=== PATIENT | male | born 1945 | race Caucasian/White ===

== ENCOUNTER → 2017-12-19 | Outpatient (CLI) | payer BC ==
[~2017-12-19] MED LIST: ASPI-435 PO; CALC500T72 PO; CALCTAB5 PO; CLC100X PO; CRAN1CAP15 PO; MULT-506 PO; OMEG10007 PO; POLY335019 PO; PRLSR20 PO; TEST1INJ6 IM; [UNRECOGNIZED DRUG - CODE] PO; [UNRECOGNIZED DRUG - CODE] PO
[2017-12-19 15:47] LABS: BLOOD UREA NITROGEN 17 mg/dl (7-18); CREATININE 1.25 mg/dl (0.60-1.40)
== END | disposition home or self-care (01) ==
LOC: C.LAB 14:03
PROVIDERS: ATTEND Ophthalmology
DX: H49.21 Sixth [abducent] nerve palsy, right eye (principal)

== ENCOUNTER 2020-07-23 13:41 | Inpatient (IN) ==
--- NOTE | 2020-07-23 14:10 | Emergency Department Note ---
Impression & Plan Pericardial effusion, Chest pain, Breath shortness ED Provider Note NAME: NURYS FRANCO AGE: 74 SEX: M : 1945 ARRIVES VIA: Walk-In INFORMANT: Patient ED PROVIDER(S): Flo Chau DO CHIEF COMPLAINT: Chest pain and shortness of breath HPI: Patient is a 74-year-old male presents to the ER status post aortic valve [place] [facility] [place] He has been having chest pain and shortness of breath since yesterday. Chest pain is present at all times but does improve with sitting up. Also worse with breathing and coughing. He has a runny nose which has been present for the past 2 days. She started warfarin last night. Notes that his previous catheterization was clean. Denies any nausea vomiting or diarrhea. No other exacerbating or remitting factors. No loss of taste or smell. Intermittent cough. ROS: See above HPI for pertinent positives & negatives. A total of 10 systems reviewed and were otherwise negative. PAST MEDICAL HISTORY:See Below PAST SURGICAL HISTORY:See Below FAMILY HISTORY:See Below SOCIAL HISTORY:See Below HOME MEDICATIONS:See Below ALLERGIES:See Below VITALS:See Below PHYSICAL EXAMINATION: GENERAL: Sitting up in bed, alert, well appearing, well nourished, no distress, non-toxic EYE EXAM: normal conjunctiva. OROPHARYNX: no exudate, no erythema, lips, buccal mucosa, and tongue normal and mucous membranes are moist NECK: supple, no nuchal rigidity, no adenopathy, non-tender LUNGS: Clear to auscultation. Normal chest wall mechanics HEART: S1 normal and S2 normal ABDOMEN: abdomen soft, non-tender, normo-active bowel sounds, no masses, no rebound or guarding. UPPER EXTREMITIES: upper extremities are grossly normal. LOWER EXTREMITIES: Calves are equal bilateral with mild pitting edema NEURO EXAM: Normal sensorium, cranial nerves II-XII grossly intact, normal speech, no gross weakness of arms, no gross weakness of legs. MEDICAL DECISION MAKING: Patient is a 74-year-old male who presents the ER status post aortic valve replacement on the . He is anticoagulated as recently found in A. fib by cardiology 2 days ago. IV was established blood work is obtained. Presents for chest pain and shortness of breath. Labs show a leukocytosis of 12,000. Mild anemia at 11. INR was at 1.3. BMP with a creatinine 1.4. Troponin was detectable but not positive. Lipase unremarkable. Chest x-ray with a pleural effusion. Consulted cardiology who evaluated him at bedside. Echo was performed at bedside due to the large pericardial effusion was taken emergently to the [facility] for pericardiocentesis Triage Nursing notes reviewed. Prior medical records reviewed Vital Signs: reviewed and remarkable for no significant abnormalities Differential diagnosis: Differential diagnoses includes but is not limited to acute coronary syndrome, myocardial infarction, pericarditis, pulmonary embolus, aortic dissection, p neumonia, pneumothorax, musculoskeletal, shingles, esophageal. ER treatment provided: See below Diagnostics interpreted by me: ECG: Afib RVR rate of 103 Normal axis No PVCs Normal QTC Cardiac Monitoring: An order was placed for continuous cardiac monitoring. The monitor shows a rate of 101 with sinus rhythm. Laboratory studies: As stated above and show below. Imaging studies: Chest x-ray with pleural effusion Consultation(s): Discussed with Dr. Olvera who evaluated patient at bedside Discussed with nYes Garcia and the hospitalist ED COURSE: Procedures: none Critical Care: None Past Med/Surg History Medical History Benign hypertrophy of prostate CKD (chronic kidney disease), stage III GERD (gastroesophageal reflux disease) Hypertension Hypogonadism in male Pancreatitis history of Valvular heart disease aortic regurgitation. left ventricle thickening Surgical History H/O transurethral resection of prostate "Dr. Colt North 01/27/2015" H/O ventral hernia repair History of appendectomy History of cholecystectomy History of partial colectomy History of tonsillectomy History of tooth extraction all upper teeth removed History of total right hip arthroplasty "Dr. Barbosa 10/2013" Family History Father Diabetes Coronary heart disease COPD (chronic obstructive pulmonary disease) Social History Smoking Status: Former smoker Tobacco Type: Cigarettes Second Hand Exposure: No; Hx Alcohol Use: Yes Alcohol type: wine Hx Substance Use: No Preferred Language: Serbian Communication Ability: Effective Systems Support Officer Required: No Beliefs That Will Affect Care: None Current Living Situation: Alone Feels Safe at Home: No Is there a partner from a previous relationship who is making you feel unsafe now?: No Assistive Devices: None Allergies Allergies Allergy/AdvReac Type Severity Reaction Status Date / Time adhesive Allergy Mild RASH Verified 04/07/20 07:02 meperidine AdvReac Unknown HALLUCINATI Verified 04/07/20 07:02 ONS Home Meds Home Medications Medication Instructions Recorded Confirmed albuterol sulfate 2 puff INHALATION QID PRN 07/23/20 07/23/20 amoxicillin 2,000 mg PO ONCE PRN 07/23/20 07/23/20 ascorbic acid (vitamin C) [Vitamin 500 mg PO DAILY 07/23/20 07/23/20 C] aspirin [Aspir-81] 81 mg PO Q2D 07/23/20 07/23/20 calcium citrate-vitamin D3 1 tab PO DAILY 07/23/20 07/23/20 [Calcium Citrate + D] cholecalciferol (vitamin D3) 25 mcg PO DAILY 07/23/20 07/23/20 docusate sodium [Colace] 100 mg PO DAILY 07/23/20 07/23/20 fluticasone propionate 1 spray INTRANASAL BID 07/23/20 07/23/20 furosemide 40 mg PO DAILY 07/23/20 07/23/20 ginkgo biloba [Ginkoba] 40 mg PO DAILY 07/23/20 07/23/20 glucos sul 2LGt-ikl-wzbcy-C-Mn 1 cap PO TID 07/23/20 07/23/20 [Glucosamine Chondroitin] latanoprost 1 drp OPB DAILY 07/23/20 07/23/20 lisinopril 5 mg PO DAILY 07/23/20 07/23/20 omega-3 fatty acids-fish oil 1 cap PO DAILY 07/23/20 07/23/20 [Thompson 3 Fish Oil] omeprazole 20 mg PO DAILY 07/23/20 07/23/20 oxycodone 5 mg PO Q4H PRN 07/23/20 07/23/20 potassium chloride 10 meq PO DAILY 07/23/20 07/23/20 vit no.[id number] 1 tab PO DAILY 07/23/20 07/23/20 [ Vitamin] warfarin 5 mg PO DAILY 07/23/20 07/23/20 Results & Data (ED) Vital Signs Vital Signs - 24 hr 07/23/20 13:44 07/23/20 13:54 07/23/20 13:57 Temperature 36.8 C Temperature Source Oral Pulse Rate 98 H 90 94 H Pulse Rate from SpO2 Sensor Respiratory Rate 20 20 20 Respiratory Effort / Characteristics Short of Breath Blood Pressure 136/90 114/78 Blood Pressure Mean 105 89 Blood Pressure Position Sitting Pulse Oximetry 97 97 Oxygen Delivery Method Room Air Room Air Sepsis Recent Fever Within 48 Hours No Sepsis New/Unexplained Change in Mental Status N/A Sepsis Action Taken by Nursing No Action Required 07/23/20 13:58 07/23/20 14:00 07/23/20 14:01 Temperature Temperature Source Pulse Rate 88 87 89 Pulse Rate from SpO2 Sensor Respiratory Rate 20 18 20 Respiratory Effort / Characteristics Blood Pressure 140/89 Blood Pressure Mean 111 Blood Pressure Position Pulse Oximetry Oxygen Delivery Method Sepsis Recent Fever Within 48 Hours Sepsis New/Unexplained Change in Mental Status Sepsis Action Taken by Nursing 07/23/20 14:30 07/23/20 15:00 07/23/20 15:01 Temperature Temperature Source Pulse Rate 104 H 100 H 100 H Pulse Rate from SpO2 Sensor 99 H 94 H 97 H Respiratory Rate 22 20 20 Respiratory Effort / Characteristics Blood Pressure 99/68 L Blood Pressure Mean 83 Blood Pressure Position Pulse Oximetry 96 96 95 Oxygen Delivery Method Sepsis Recent Fever Within 48 Hours Sepsis New/Unexplained Change in Mental Status Sepsis Action Taken by Nursing 07/23/20 15:11 07/23/20 15:12 07/23/20 15:53 Temperature Temperature Source Pulse Rate 93 H 101 H 101 H Pulse Rate from SpO2 Sensor 94 H 96 H Respiratory Rate 20 22 22 Respiratory Effort / Characteristics Blood Pressure 96/68 L 110/84 110/84 Blood Pressure Mean 70 93 Blood Pressure Position Pulse Oximetry 95 95 95 Oxygen Delivery Method Room Air Sepsis Recent Fever Within 48 Hours Sepsis New/Unexplained Change in Mental Status Sepsis Action Taken by Nursing Laboratory Data Result diagrams: 07/23/20 19:59 07/23/20 14:09 Lab Results 07/23/20 07/23/20 07/23/20 Range/Units 14:09 14:09 14:09 WBC 12.61 H (4.8-10.8) K/uL RBC 4.15 L (4.7-6.1) M/uL Hgb 12.7 L (14.0-18.0) g/dL Hct 38.0 L (42-52) % MCV 91.6 (80-100) fL MCH 30.6 (25-34) pg MCHC 33.4 (32-36) g/dL RDW Std Deviation 44.8 (36.4-46.3) fL RDW Coeff of Shruti 13.5 (11.5-14.5) % Plt Count 544 H (130-400) K/uL MPV 9.4 (7.4-10.4) fL Immature Gran % (Auto) 0.2 % Neut % (Auto) 83.0 % Lymph % (Auto) 6.9 % Benson % (Auto) 9.8 % Eos % (Auto) 0.0 % Baso % (Auto) 0.1 % Neut # (Auto) 10.46 H (1.4-6.5) K/uL Lymph # (Auto) 0.87 L (1.2-3.4) K/uL Benson # (Auto) 1.24 H (0.11-0.59) K/uL Eos # (Auto) 0.00 (0-0.5) K/uL Baso # (Auto) 0.01 (0-0.2) K/uL Immature Gran # (Auto) 0.03 H (0.00-0.02) K/uL PT 13.3 H (9.0-12.0) Seconds INR 1.3 H (0.9-1.1) APTT 31.2 H (21.0-31.0) Seconds PTT Ratio 1.1 Sodium 136 (136-145) mmol/L Potassium 4.2 (3.5-5.1) mmol/L Chloride 104 (98-107) mmol/L Carbon Dioxide 25 (21-32) mmol/L Anion Gap 7.0 (3-11) BUN 22 H (7-18) mg/dl Creatinine 1.44 H (0.6-1.4) mg/dl Est Cr Clr Drug Dosing 44.2 ml/min Est GFR ( Amer) 55.4 Est GFR (Non-Af Amer) 47.8 BUN/Creatinine Ratio 15.3 (10-20) Glucose 132 H (70-99) mg/dl Calcium 9.5 (8.5-10.1) mg/dl Total Bilirubin 1.1 H (0.2-1) mg/dl AST 21 (15-37) U/L ALT 51 (12-78) U/L Alkaline Phosphatase 81 (45-117) U/L Troponin I 0.016 (0-0.045) ng/ml Total Protein 7.2 (6.4-8.2) gm/dl Albumin 3.0 L (3.4-5.0) gm/dl Globulin 4.2 H (2.5-4.0) gm/dl Albumin/Globulin Ratio 0.7 L (0.9-2) Lipase 179 (73-393) U/L Fluid Neutrophils % % Fluid Lymphocytes % % Fluid Eosinophils % % Fluid Meso/Macro/Benson % % Pericard Color Pericard Appearance Pericard WBC /ul Pericard RBC /uL COVID-19 Eval Order SARS-CoV-2, RNA, NAAT (NEGATIVE) 07/23/20 07/23/20 07/23/20 Range/Units 15:49 15:49 16:45 WBC (4.8-10.8) K/uL RBC (4.7-6.1) M/uL Hgb (14.0-18.0) g/dL Hct (42-52) % MCV (80-100) fL MCH (25-34) pg MCHC (32-36) g/dL RDW Std Deviation (36.4-46.3) fL RDW Coeff of Shruti (11.5-14.5) % Plt Count (130-400) K/uL MPV (7.4-10.4) fL Immature Gran % (Auto) % Neut % (Auto) % Lymph % (Auto) % Benson % (Auto) % Eos % (Auto) % Baso % (Auto) % Neut # (Auto) (1.4-6.5) K/uL Lymph # (Auto) (1.2-3.4) K/uL Benson # (Auto) (0.11-0.59) K/uL Eos # (Auto) (0-0.5) K/uL Baso # (Auto) (0-0.2) K/uL Immature Gran # (Auto) (0.00-0.02) K/uL PT (9.0-12.0) Seconds INR (0.9-1.1) APTT (21.0-31.0) Seconds PTT Ratio Sodium (136-145) mmol/L Potassium (3.5-5.1) mmol/L Chloride (98-107) mmol/L Carbon Dioxide (21-32) mmol/L Anion Gap (3-11) BUN (7-18) mg/dl Creatinine (0.6-1.4) mg/dl Est Cr Clr Drug Dosing ml/min Est GFR ( Amer) Est GFR (Non-Af Amer) BUN/Creatinine Ratio (10-20) Glucose (70-99) mg/dl Calcium (8.5-10.1) mg/dl Total Bilirubin (0.2-1) mg/dl AST (15-37) U/L ALT (12-78) U/L Alkaline Phosphatase (45-117) U/L Troponin I (0-0.045) ng/ml Total Protein (6.4-8.2) gm/dl Albumin (3.4-5.0) gm/dl Globulin (2.5-4.0) gm/dl Albumin/Globulin Ratio (0.9-2) Lipase (73-393) U/L Fluid Neutrophils % 82 % Fluid Lymphocytes % 14 % Fluid Eosinophils % 2 % Fluid Meso/Macro/Benson % 2 % Pericard Color RED Pericard Appearance CLOUDY Pericard WBC 520 /ul Pericard RBC 39244 /uL COVID-19 Eval [facility] SARS-CoV-2, RNA, NAAT NEGATIVE (NEGATIVE) Administered Medications Discontinued Medications Fentanyl Citrate (Fentanyl Citrate 100 Mcg/2 Ml Vial) Confirm Administered Dose 100 mcg .ROUTE .[employer] ONE Stop: 07/23/20 15:59 Last Increment: 07/23/20 17:07 Dose: 50 mcg Documented by: [id number] Ketorolac Tromethamine (Ketorolac Tromethamine 10 Mg Tablet) 10 mg PO NOW STA Stop: 07/23/20 14:31 Last Admin: 07/23/20 14:38 Dose: 10 mg Documented by: [id number] Midazolam HCl (Midazolam Hcl 1 Mg/Ml 2ml Vial) Confirm Administered Dose 2 mg .ROUTE .STK-MED ONE Stop: 07/23/20 15:59 Last Admin: 07/23/20 18:42 Dose: Not Given Documented by: [id number] Midazolam HCl (Midazolam Hcl 1 Mg/Ml 2ml Vial) Confirm Administered Dose 2 mg .ROUTE .STK-MED ONE Stop: 07/23/20 16:39 Last Admin: 07/23/20 17:06 Dose: 2 mg Documented by: [id number] Discharge Plan Visit Data Chief Complaint: Chest Pain Stated Complaint: SOB CHEST PAIN ED Provider: Flo Chau Discharge Problem: Pericardial effusion, Chest pain, Breath shortness Patient Disposition: Still a Patient Discharge Instructions Interventions: ED Discharge Assessment Last Done: 07/23/20 15:53 Discharge Problem: Chest pain Qualifiers: Chest pain type: unspecified Qualified Code(s): R07.9 - Chest pain, unspecified
--- NOTE | 2020-07-23 14:24 | XRay Report ---
SINGLE VIEW CHEST CLINICAL HISTORY: Atypical chest pain. Recent cardiac valve surgery. FINDINGS: 2 AP, portable, upright chest radiographs are compared to study dated 12/11/2015. The examin ation is degraded by portable technique and patient rotation. The patient is status post midline ster notomy. The heart is enlarged. The pulmonary vasculature is noncongested. There is a left pleural eff usion with associated left basilar consolidation. Trace pleural effusion with atelectasis is also see n on the right. No pneumothorax is seen. The skeletal structures are osteopenic. The bony thorax is g rossly intact. IMPRESSION: 1. Cardiomegaly without radiographic evidence of congestive failure. 2. Left pleural effusion with left basilar consolidation. 3. Trace pleural effusion is also seen on the right ACT 112: Negative or not required by law. Electronically signed by: Young Moss M.D. 07/23/2020 2:22 PM
[2020-07-23 14:26] LABS: Basophils # (auto) 0.01 K/uL (0-0.2); Basophils % (auto) 0.1 %; Hemoglobin 12.7 g/dL (14.0-18.0); Immature Granulocytes # (auto) 0.03 K/uL (0.00-0.02); Immature Granulocytes % (auto) 0.2 %; Lymphocytes # (auto) 0.87 K/uL (1.2-3.4); Lymphocytes % (auto) 6.9 %; Mean Corpuscular Hemoglobin 30.6 pg (25-34); Mean Corpuscular Hgb Conc 33.4 g/dL (32-36); Mean Corpuscular Volume 91.6 fL (80-100); Mean Platelet Volume 9.4 fL (7.4-10.4); Monocytes # (auto) 1.24 K/uL (0.11-0.59); Monocytes % (auto) 9.8 %; Neutrophils # (auto) 10.46 K/uL (1.4-6.5); Platelet Count 544 K/uL (130-400); RDW Coefficient of Variation 13.5 % (11.5-14.5); RDW Standard Deviation 44.8 fL (36.4-46.3); Red Blood Count 4.15 M/uL (4.7-6.1); White Blood Count 12.61 K/uL (4.8-10.8)
[2020-07-23] MEDS ORDERED: KETOROLAC TROMETHAMINE 10 MG TABLET PO STA (14:30)
[2020-07-23 14:43] LABS: BUN Creatinine Ratio 15.3 (10-20); Calcium 9.5 mg/dl (8.5-10.1); Creatinine Clr Calc Pharmacy 44.2 ml/min; Est GFR (African American) 55.4; Est GFR (Non-African American) 47.8; Potassium 4.2 mmol/L (3.5-5.1)
[2020-07-23 14:44] LABS: INR 1.3 (0.9-1.1); Partial Thromboplastin Ratio 1.1; Partial Thromboplastin Time 31.2 Seconds (21.0-31.0); Prothrombin Time 13.3 Seconds (9.0-12.0)
[2020-07-23 14:48] LABS: Albumin Globulin Ratio 0.7 (0.9-2); Bilirubin,Total 1.1 mg/dl (0.2-1); Globulin 4.2 gm/dl (2.5-4.0); Total Protein 7.2 gm/dl (6.4-8.2); Troponin I 0.016 ng/ml (0-0.045)
--- NOTE | 2020-07-23 15:23 | Cardiology Consultation ---
Date of Consultation July 23, 2020 Assessment & Plan (1) Pericardial effusion with cardiac tamponade: Patient is 74-year-old male status post aortic valve replacement on 07/10/2020 presents with rapidly progressive symptoms of dyspnea orthopnea and positional chest pain x2 to 3 days. Symptoms were associated with intermittent atrial fibrillation however echocardiogram performed in acute evaluation demonstrates large circumferential pericardial effusion with hemodynamic effect/tamponade. Plan: Patient be referred for urgent pericardiocentesis (2) S/P AVR (aortic valve replacement): Valve structure appears grossly normal in function no valvular insufficiency with limited Doppler performed (3) Paroxysmal atrial fibrillation: Will reassess rhythm post pericardiocentesis patient anticoagulation indications will be dependent on plans. Suspect patient's rhythm may benefit from pericardiocentesis (4) CKD (chronic kidney disease), stage III: (5) Pleural effusion, left: History of Present Illness Reason for Consultation: Worsening dyspnea post aortic valve replacement Requesting Physician: Dr. Chau History of Present Illness Patient is a 74-year-old male well-known to me who was referred and underwent aortic valve replacement for severe aortic insufficiency on 07/10/2020 presents now with recent change in symptoms. Ongoing issues include 1. Aortic valve replacement with 23 mm Epic bioprosthesis 07/10/2020 for severe symptomatic aortic insufficiency 2. Minimal coronary atherosclerosis without obstruction 06/19/2020 3. Mild left internal carotid artery atherosclerosis 4. Postop paroxysmal atrial fibrillation 5. Hypertension 6. CKD stage III Patient presented yesterday to the outpatient clinic setting noting symptoms of newly observed dyspnea was found to be in atrial fibrillation with controlled ventricular response rate. Concerns were raised regarding possible post pericardiotomy syndrome, echo ordered, chest x-ray performed demonstrating cardiomegaly and left pleural effusion. Anticoagulation was initiated with single dose of warfarin. Overnight symptoms worsened with worsening orthopnea dyspnea and positional chest pain. He presented to the emergency room for evaluation by EKG demonst rated ectopic atrial rhythm/atypical atrial flutter and echocardiogram demonstrated large circumferential pericardial effusion, hemodynamically significant with right ventricular effacement. Patient personally examined and findings discussed with patient He denies recent fevers chills or infections. Has been aware of increasing lower extremity edema over the past several days. Up until recent presentation however he was feeling "better every day" ambulatory increasing stamina. Currently with low-grade cough. Incision without focal tenderness or drainage Allergies Allergy/AdvReac Type Severity Reaction Status Date / Time adhesive Allergy Mild RASH Verified 04/07/20 07:02 meperidine AdvReac Unknown HALLUCINATI Verified 04/07/20 07:02 ONS Home Medications Home Medications Medication Instructions Recorded Confirmed Type albuterol sulfate 2 puff INHALATION QID PRN 07/23/20 07/23/20 History ascorbic acid (vitamin C) [Vitamin 500 mg PO DAILY 07/23/20 07/23/20 History C] aspirin [Aspir-81] 81 mg PO DAILY 07/23/20 07/23/20 History cholecalciferol (vitamin D3) 25 mcg PO DAILY 07/23/20 07/23/20 History fluticasone propionate 1 spray INTRANASAL BID 07/23/20 07/23/20 History furosemide 40 mg PO DAILY 07/23/20 07/23/20 History latanoprost 1 drp OPB DAILY 07/23/20 07/23/20 History lisinopril 5 mg PO DAILY 07/23/20 07/23/20 History omega-3 fatty acids-fish oil 1 cap PO DAILY 07/23/20 07/23/20 History [Benoit 3 Fish Oil] omeprazole 20 mg PO DAILY 07/23/20 07/23/20 History oxycodone 5 mg PO Q4H PRN 07/23/20 07/23/20 History potassium chloride 10 meq PO DAILY 07/23/20 07/23/20 History vit no.[id number] 1 tab PO DAILY 07/23/20 07/23/20 History [ Vitamin] warfarin 5 mg PO DAILY 07/23/20 07/23/20 History Patient History Medical History Benign hypertrophy of prostate CKD (chronic kidney disease), stage III GERD (gastroesophageal reflux disease) Hypertension Hypogonadism in male Pancreatitis history of Valvular heart disease aortic regurgitation. left ventricle thickening Surgical History H/O transurethral resection of prostate "Dr. Colt North 01/27/2015" H/O ventral hernia repair History of appendectomy History of cholecystectomy History of partial colectomy History of tonsillectomy History of tooth extraction all upper teeth removed History of total right hip arthroplasty "Dr. Barbosa 10/2013" Family History Father Diabetes Coronary heart disease COPD (chronic obstructive pulmonary disease) Social History Smoking Status: Former smoker Tobacco Type: Cigarettes Second Hand Exposure: No; Hx Alcohol Use: Yes Alcohol type: wine Hx Substance Use: No Preferred Language: Comoran Communication Ability: Effective Criminal Justice Social Worker Required: No Beliefs That Will Affect Care: None Current Living Situation: Alone Feels Safe at Home: No Is there a partner from a previous relationship who is making you feel unsafe now?: No Assistive Devices: None Review of Systems Review of Systems: All systems reviewed & are unremarkable except as noted in HPI & below Physical Exam Constitutional: + ill appearing Eyes: PERRL, conjunctivae normal, anicteric sclerae ENMT: external ear and nose normal, oropharynx normal Neck: trachea midline, no thyromegaly Respiratory: Auscultation: + bronchial breath sounds (Left base) Cardiovascular: Rate/Rhythm: + tachycardic Vessels: + JVD Extremities: + edema (1-2+ bilateral ) Chest (Breasts): Additional Comments: Midline incision without drainage or erythema Gastrointestinal (Abdomen): normal bowel sounds, soft, nontender, no hepatosplenomegaly Musculoskeletal: no cyanosis or clubbing, extremities motor strength 5/5 Neurologic: PERRL, EOMI, accommodation nl, no face palsy, no dysarthria Psychiatric: A+Ox3, euthymic affect Results & Data ([facility]) Vital Signs (Past 12 Hours) Vital Signs Temp Pulse Resp BP Pulse Ox 07/23/20 15:12 101 H 22 110/84 95 07/23/20 15:11 93 H 20 96/68 L 95 07/23/20 15:01 100 H 20 99/68 L 95 07/23/20 15:00 100 H 20 96 07/23/20 14:30 104 H 22 96 07/23/20 14:01 89 20 140/89 07/23/20 14:00 87 18 07/23/20 13:58 88 20 07/23/20 13:57 94 H 20 97 07/23/20 13:54 90 20 114/78 07/23/20 13:44 36.8 C 98 H 20 136/90 97 Laboratory Results Laboratory Results - last 24 hr 07/23/20 07/23/20 07/23/20 14:09 14:09 14:09 WBC 12.61 H RBC 4.15 L Hgb 12.7 L Hct 38.0 L MCV 91.6 MCH 30.6 MCHC 33.4 RDW Std Deviation 44.8 RDW Coeff of Shruti 13.5 Plt Count 544 H MPV 9.4 Immature Gran % (Auto) 0.2 Neut % (Auto) 83.0 Lymph % (Auto) 6.9 Daggett % (Auto) 9.8 Eos % (Auto) 0.0 Baso % (Auto) 0.1 Neut # (Auto) 10.46 H Lymph # (Auto) 0.87 L Daggett # (Auto) 1.24 H Eos # (Auto) 0.00 Baso # (Auto) 0.01 Immature Gran # (Auto) 0.03 H PT 13.3 H INR 1.3 H APTT 31.2 H PTT Ratio 1.1 Sodium 136 Potassium 4.2 Chloride 104 Carbon Dioxide 25 Anion Gap 7.0 BUN 22 H Creatinine 1.44 H Est Cr Clr Drug Dosing 44.2 Est GFR ( Amer) 55.4 Est GFR (Non-Af Amer) 47.8 BUN/Creatinine Ratio 15.3 Glucose 132 H Calcium 9.5 Total Bilirubin 1.1 H AST 21 ALT 51 Alkaline Phosphatase 81 Troponin I 0.016 Total Protein 7.2 Albumin 3.0 L Globulin 4.2 H Albumin/Globulin Ratio 0.7 L Lipase 179
[2020-07-23] MEDS ORDERED: MIDAZOLAM HCL 1 MG/ML 2ML VIAL ONE ×2 (15:58→16:38)
[2020-07-23] MEDS ORDERED: fentaNYL citrate 100 MCG/2 ML VIAL ONE (15:58)
--- NOTE | 2020-07-23 16:18 | History & Physical Report ---
Date of Service July 23, 2020 Assessment & Plan (1) Pericardial effusion with cardiac tamponade: (2) Pleural effusion, left: (3) S/P AVR (aortic valve replacement): This is a 74-year-old male who is significant past medical history of HTN, chronic HFpEF, prediabetes, CKD stage III, left adrenal mass on recent bioprosthetic aortic valve replacement who presents to ED secondary to chest pain shortness of breath x1 day. Patient underwent urgent echocardiogram in ED which revealed large pericardial effusion with hemodynamic compromise and tamponade. He was sent for urgent pericardiocentesis with 875 mL extracted. Discussed with studio control operator Dr. Olvera. Pericardiocentesis performed by Dr. Tejeda. Patient be transferred to ICU for ongoing critical care. Please refer to puttying and calking supervisor consultation for further details regarding assessment and plan. Hold all home meds tonight. Monitor on tele. (4) Paroxysmal atrial fibrillation: Pt developed post op afib, dx on ECG in outpt clinic 07/22 started on warfarin 5mg x 1 dose yesterday metoprolol recently d/c during hospitalization at [facility] will defer anticoagulation to cardiology (5) Hypertension: blood pressure stable, 110/84 on lisinopril, lasix as outpt (6) CKD (chronic kidney disease), stage III: Baseline cr 1.2 bun/cr 22 and 1.44 Fluid management per puttying and calking supervisor monitor bmp (7) Pre-diabetes: A1c 6.0 07/02/2020 Hyperglycemia protocol per ICU (8) Esophageal reflux: PPI as outpt (9) DVT prophylaxis: Per puttying and calking supervisor Disposition: admit to ICU s/p pericardiocentesis Follow-up: PCP Dr. Ewing upon discharge along with appropriate follow-up with valve clinic at [facility] Dr. Ballesteros Full code Patient was seen and examined in collaboration with Dr. Tate, please see addendum History of Present Illness Chief Complaint: Chest pain and SOB x 1 day. Primary Care Provider: Justen Ewing, This is a 74-year-old male who is significant past medical history of HTN, chronic HFpEF, prediabetes, CKD stage III, left adrenal mass on recent bioprosthetic aortic valve replacement who presents to ED secondary to chest pain shortness of breath x1 day. Patient was recently hospitalized at [facility] on 07/10-07/15 for aortic valve replacement secondary to nonrheumatic aortic insufficiency with a 23 mm epic valve by Dr. Ballesteros. His hospital course was complicated by prescribed AV block, postoperative anemia and urethral stricture requiring Mai catheter placement. This has since been removed. His medication changes on discharge included discontinuation of metoprolol succinate 12.5 mg daily, discontinuation of amlodipine, reduction in lisinopril dosing from 40 mg daily to 5 mg and the addition of potassium chloride 10 mEq daily. He was seen in clinic by cardiology yesterday, 07/22. He was seen by Fabian Mejia PA-C who discovered postoperative atrial fibrillation. He was placed on warfarin 5 mg daily and took 1 dose yesterday. Yesterday he developed chest pain and shortness of breath. Chest pain is constant, substernal, worse with lying down and improving with standing up. It is also made worse with coughing and deep breathing. He does complain of dry cough. He currently denies fever, chills, sweats, lightheadedness, dizziness, nausea, vomiting, abdominal pain. He does admit to abdominal pain yesterday but this was improved with a bowel movement. He denies any dysuria, increased urgency or frequency with urination or hematuria. He did have one-time episode of hematuria after catheter was removed but this is since resolved. Of significance prior to aortic valve replacement he did undergo coronary angiography by Dr. Olvera on 06/19/2020 which was unremarkable. In ED patient was seen evaluated by cardiology Dr. Olvera. He did undergo a bedside echo which revealed large pericardial effusion with compromised hemodynamics. Recommendation was patient to proceed to [employer] Supervisor for pericardial window by clinical program consultant Dr. Tejeda. He remained hemodynamically stable in ED. Lab work notable for leukocytosis 12.61k, H&H 12.7 and 30.0, platelet 544, BUN 22, creatinine 1.44, glucose 132. Preop Covid screen was negative. Allergies Allergy/AdvReac Type Severity Reaction Status Date / Time adhesive Allergy Mild RASH Verified 04/07/20 07:02 meperidine AdvReac Unknown HALLUCINATI Verified 04/07/20 07:02 ONS Home Medications Home Medications Medication Instructions Recorded Confirmed Type albuterol sulfate 2 puff INHALATION QID PRN 07/23/20 07/23/20 History amoxicillin 2,000 mg PO ONCE PRN 07/23/20 07/23/20 History ascorbic acid (vitamin C) [Vitamin 500 mg PO DAILY 07/23/20 07/23/20 History C] aspirin [Aspir-81] 81 mg PO Q2D 07/23/20 07/23/20 History calcium citrate-vitamin D3 1 tab PO DAILY 07/23/20 07/23/20 History [Calcium Citrate + D] cholecalciferol (vitamin D3) 25 mcg PO DAILY 07/23/20 07/23/20 History docusate sodium [Colace] 100 mg PO DAILY 07/23/20 07/23/20 History fluticasone propionate 1 spray INTRANASAL BID 07/23/20 07/23/20 History furosemide 40 mg PO DAILY 07/23/20 07/23/20 History ginkgo biloba [Ginkoba] 40 mg PO DAILY 07/23/20 07/23/20 History glucos sul [id number] 1 cap PO TID 07/23/20 07/23/20 History [Glucosamine Chondroitin] latanoprost 1 drp OPB DAILY 07/23/20 07/23/20 History lisinopril 5 mg PO DAILY 07/23/20 07/23/20 History omega-3 fatty acids-fish oil 1 cap PO DAILY 07/23/20 07/23/20 History [Lee 3 Fish Oil] omeprazole 20 mg PO DAILY 07/23/20 07/23/20 History oxycodone 5 mg PO Q4H PRN 07/23/20 07/23/20 History potassium chloride 10 meq PO DAILY 07/23/20 07/23/20 History vit [id number] 1 tab PO DAILY 07/23/20 07/23/20 History [ Vitamin] warfarin 5 mg PO DAILY 07/23/20 07/23/20 History Past Med/Surg History Medical History Benign hypertrophy of prostate CKD (chronic kidney disease), stage III GERD (gastroesophageal reflux disease) Hypertension Hypogonadism in male Pancreatitis history of Valvular heart disease aortic regurgitation. left ventricle thickening Surgical History H/O transurethral resection of prostate "Dr. Colt North 01/27/2015" H/O ventral hernia repair History of appendectomy History of cholecystectomy History of partial colectomy History of tonsillectomy History of tooth extraction all upper teeth removed History of total right hip arthroplasty "Dr. Barbosa 10/2013" Family History Father Diabetes Coronary heart disease COPD (chronic obstructive pulmonary disease) Social History Smoking Status: Former smoker Tobacco Type: Cigarettes Second Hand Exposure: No; Hx Alcohol Use: Yes Alcohol type: wine Hx Substance Use: No Preferred Language: Ukrainian Communication Ability: Effective Atm Servicer Required: No Beliefs That Will Affect Care: None Current Living Situation: Alone Feels Safe at Home: No Is there a partner from a previous relationship who is making you feel unsafe now?: No Assistive Devices: None Review of Systems Review of Systems: All systems reviewed & are unremarkable except as noted in HPI & below Physical Exam Physical Exam: Constitutional: WD/WN, M, vitals as above, NAD, sitting up in bed, pleasant, conversing easily Head: Normocephalic, Atraumatic Eyes: PERRL, conjunctivae normal, anicteric sclerae ENMT: external ear and nose normal, oropharynx normal Neck: trachea midline, no thyromegaly normal visual inspection Respiratory: normal respiratory effort, lungs clear to auscultation, no wheeze, rales, rhonchi. Normal insp/exp effort, no accessory muscle use Cardiovascular: RRR, L anterior chest wall inferior to nipple drain in place, no murmur, +1 pretibial edema Vessels: no JVD or carotid bruit Chest: normal inspection of chest Abdomen: normal bowel sounds, soft, nontender, no hepatosplenomegaly Musculoskeletal: no cyanosis or clubbing, extremities motor strength 5/5 Skin: no rashes, warm and dry normal turgor Neurologic: PERRL, EOMI, accommodation nl, no face palsy, no dysarthria CN's II-XI intact bilaterally and moves all extremities Psychiatric: A+Ox3, euthymic affect Lymphatic: no cervical or axillary lymphadenopathy : deferred Results & Data Results & Data ([facility]) Vital Signs (Past 12 Hours) Vital Signs Temp Pulse Resp BP Pulse Ox 07/23/20 15:53 101 H 22 110/84 95 07/23/20 15:12 101 H 22 110/84 95 07/23/20 15:11 93 H 20 96/68 L 95 07/23/20 15:01 100 H 20 99/68 L 95 07/23/20 15:00 100 H 20 96 07/23/20 14:30 104 H 22 96 07/23/20 14:01 89 20 140/89 07/23/20 14:00 87 18 07/23/20 13:58 88 20 07/23/20 13:57 94 H 20 97 07/23/20 13:54 90 20 114/78 07/23/20 13:44 36.8 C 98 H 20 136/90 97 Laboratory Results Short CBC 07/23/20 07/23/20 Range/Units 14:09 14:09 WBC 12.61 H (4.8-10.8) K/uL Hgb 12.7 L (14.0-18.0) g/dL Hct 38.0 L (42-52) % Plt Count 544 H (130-400) K/uL Creatinine 1.44 H (0.6-1.4) mg/dl BMP 07/23/20 14:09 Sodium 136 Potassium 4.2 Chloride 104 Carbon Dioxide 25 BUN 22 H Creatinine 1.44 H Glucose 132 H Calcium 9.5 Cardiac Enzymes 07/23/20 Range/Units 14:09 Troponin I 0.016 (0-0.045) ng/ml Liver Function 07/23/20 Range/Units 14:09 Total Bilirubin 1.1 H (0.2-1) mg/dl AST 21 (15-37) U/L ALT 51 (12-78) U/L Alkaline Phosphatase 81 (45-117) U/L Albumin 3.0 L (3.4-5.0) gm/dl Diagnostic Findings CXR: IMPRESSION: 1. Cardiomegaly without radiographic evidence of congestive failure. 2. Left pleural effusion with left basilar consolidation. 3. Trace pleural effusion is also seen on the right Echocardiogram: Large pericardial effusion Echocardiogram findings are consistent with hemodynamic compromise, moderate amount of organized clot/fibrosis adjacent to the right ventricle Ventricle small and effaced by pericardial effusion with respiratory variance. Mild LVH, EF 65 to 70%. Bioprosthetic aortic valve. Moderate size left pleural effusion. Medications Administered Discontinued Medications Ketorolac Tromethamine (Ketorolac Tromethamine 10 Mg Tablet) 10 mg PO NOW STA Stop: 07/23/20 14:31 Last Admin: 07/23/20 14:38 Dose: 10 mg Documented by: [id number] ECG Rate (beats per minute): 103 Rhythm: sinus tachycardia Findings: + 1st degree AV block Code Status & VTE Plan Code Status Full Code Supervising Physician Co-Signing Physician Notes Attending addendum The patient was seen and examined in ICU He was presented with worsening dyspnea and noted to have he was pericardial effusion status post bioprosthetic aortic valve placement on of this month He is status post pericardial window removal of 875 cc of fluid Has been feeling a lot better following the procedure On Examination In bed comfortably Hemodynamically stable Chest-clear to auscultate bilaterally Heart-S1-S2, regular Abdomen-benign Extremities-trace to 1+ edema bilaterally NURSE OFFICE-alert, awake and oriented x3 His admission labs, EKG and imaging studies reviewed He was pericardial effusion status post bioprosthetic aortic valve replacement on of this month Status post pericardiotomy with removal of 875 mL of fluid Status post cardiac cath Paroxysmal atrial fibrillation-rate is controlled Agree with assessment and plan as outlined above by WINNIE Landeros DR
--- NOTE | 2020-07-23 17:17 | Pre Anesthesia Assessment ---
Date of Service July 23, 2020 Pre Sedation Assessment Vital Signs Temp Pulse Resp BP Pulse Ox 07/23/20 15:53 101 H 22 110/84 95 07/23/20 15:12 101 H 22 110/84 95 07/23/20 15:11 93 H 20 96/68 L 95 07/23/20 15:01 100 H 20 99/68 L 95 07/23/20 15:00 100 H 20 96 07/23/20 14:30 104 H 22 96 07/23/20 14:01 89 20 140/89 07/23/20 14:00 87 18 07/23/20 13:58 88 20 07/23/20 13:57 94 H 20 97 07/23/20 13:54 90 20 114/78 07/23/20 13:44 98.2 F 98 H 20 136/90 97 Cardiovascular RRR, no murmur, no edema Respiratory normal respiratory effort, lungs clear to auscultation Pre-Sedation Airway Assessment Smoking Status: Former smoker Hx Sleep Apnea: No Hx Difficult Intubation: No Short, Thick Neck: No Thyromental Distance: > or= 3.5 Finger Breadths Oral Cavity: + WNL Mallampati Class: III ASA: ASA3 Procedure Planning Contraindications for Sedation: none Current Medications Reviewed: Yes Notes The planned sedation has been discussed with the patient. Informed Consent was obtained. I have identified the patient, determined the appropriateness of sedation and have assessed the patient immediately prior to the procedure. All medicine(s) and interventions are by my order.
--- NOTE | 2020-07-23 17:20 | Post Anesthesia Assessment ---
Date of Service July 23, 2020 Post Sedation Assessment Vital Signs Temp Pulse Resp BP Pulse Ox 07/23/20 15:53 101 H 22 110/84 95 07/23/20 15:12 101 H 22 110/84 95 07/23/20 15:11 93 H 20 96/68 L 95 07/23/20 15:01 100 H 20 99/68 L 95 07/23/20 15:00 100 H 20 96 07/23/20 14:30 104 H 22 96 07/23/20 14:01 89 20 140/89 07/23/20 14:00 87 18 07/23/20 13:58 88 20 07/23/20 13:57 94 H 20 97 07/23/20 13:54 90 20 114/78 07/23/20 13:44 98.2 F 98 H 20 136/90 97 Recovery Score Activity: Moves 4 extremities Respiration: Deep Breath/Cough Circulation: +/-20% PreAnes Value Consciousness: Fully Awake Oxygen Saturation: O2 needed for >90% Discharge Sedation Level of Care: Fast Track Phase II Post Sedation Plan On clinical assessment, the patient appears to have tolerated the sedation without complications. Patient is recovering as anticipated. Patient will continue to be monitored by nursing and may be discharged when sedation discharge criteria are met per below protocol. Upon Completions of procedure up to 15 minutes continue every 5 minute vital signs and the P.A.R. score; then discharge to a Phase I or Fast Track to Phase II per the following guidelines: * Discharge Patient to appropriate Phase II area if PAR is 8 or greater or return to pre- procedure baseline. The post - procedure orders will be as directed. * If PAR score is less than 8 or not return to pre-procedure baseline then patient will follow Phase I monitoring till PAR is reached for Phase II. The Phase I may be done in procedure room or may call to secure a Phase I area. * If naloxone or flumazenil are used for reversal, hold in Phase I for continued monitoring from when last reversal dose was given for a minimum of 60 minutes or longer pending the nurse and/or physician discretion of patient condition before discharge to Phase II. Please call the Sedation Physician to re-evaluate and complete post-note for discharge to Phase II area. Do NOT discharge from procedure sedation or Phase 1 until post- sedation evaluation note is complete by procedure /sedation MD Sedation Discharge Instructions to be given to the patient at discharge to home.
--- NOTE | 2020-07-23 17:34 | Cardiac Catheterization ---
[facility] Data: Chip Silo Tender Cardiac Status Clinical evaluation leading to the procedure CAD Presenation: Sx unlikely to be ischemic Anginal Classification: CCS III Heart Failure: No Cardiogenic Shock within 24 Hours: No Cardiac Arrest within 24 Hours: No Imaging Studies Past 6 Months: Yes Stress Studies Past 6 Months: No Diagnostic Physicians Name: Joel Tejeda MD Status: Urgent Closure Device Percutaneous Entry Location: Pericardial drain Recommendations: Management Recommendatons (Drain to suction) Intraprocedure Events Significant Disection: No Perforation: No Cardiac Cath Procedure Full Procedure Date July 23, 2020 Pre-Procedure Diagnosis Pre-Procedure Diagnosis: Pericardial Disease and Cardiothoracic Symptom (Dyspnea, fatigue) AUC Score AUC Score: 7 Post-Procedure Diagnosis Post-Procedure Diagnosis: Cardiothoracic Finding (Large pericardial effusion with early tamponade) Procedure(s) Performed Procedure(s) Performed: Left Heart Cath and Pericardiocentesis Drawing Checker Joel Tejeda MD Apprentice Cook(s) Bin Estimated Blood Loss Estimated Blood Loss: None Medication(s) Medication(s): Fentanyl, Lidocaine 1% and Versed Summary of Findings Indication: 2 weeks post bioprosthetic aortic valve replacement with worsening dyspnea, orthopnea in the setting of large pericardial effusion with signs of early tamponade Procedure: Moderate sedation with fentanyl and Versed Large circumferential pericardial effusion visualized from apical position Local anesthesia with lidocaine Using micropuncture needle via transapical approach, under ultrasound guidance pericardial space accessed and micropuncture sheath placed Bubble study/saline contrast used to confirm position in pericardial space 8 Fr drain placed into pericardial space Removed 870 red serosanguineous fluid Repeat echocardiogram confirmed near complete removal of pericardial fluid Drain sutured into place and left to suction Patient tolerated procedure well with no apparent complications Summary: 1. Successful pericardiocentesis with removal of 870 mL of serosanguineous fluid Recommendations: Follow-up on cell count, Gram stain and cultures We will leave drain in place to suction overnight If overnight drainage less than 50 mL plan to pull drain in a.m. Hemodynamics Rest Ao:: -- Final Ao: -- LV: -- Recommendations Recommendations: Management Recommendatons (Drain to suction) Specimens Specimens: None Radiation Exposure (mGy) 36 Contrast (mls) -- Fluids (cc crystalloids) Fluids (cc crystalloids): -- Drains Drains: pericardial drain Anesthesia moderate Procedural Complication(s) None Disposition ICU I attest to the content of the Intraoperative Record and any orders documented therein. Any exceptions are noted below. [facility] Card Cath Procedure Codes Therapeutic Services & Ancillary Proc Procedure 1: Cardiovascular Tx and Anc Procedures: 91226 Ultrasonic Guidance Pericardiocentesis Moderate Sedation Procedure 1: Sedation/Anesthesia: 34874 Mod Sedation by the same physician;Init15 Min Child Age 5 & Up Procedure 2: Sedation/Anesthesia: 04586 Mod Sedation by the same physician; Ea [id number] Minutes PG Care Time/CCT Total # of Minutes Spent Total Time Spent with Patient: Total time spent is greater than 50% in coordination of care (as documented) at patient's floor/unit and/or counseling patient:
[2020-07-23] MEDS ORDERED: ICU PROTOCOL FOR HYPERGLYCEMIA PRN (17:43)
--- NOTE | 2020-07-23 18:02 | Communication Note ---
Date of Service: July 23, 2020 Patient referred and underwent pericardiocentesis with removal of 875 cc of fluid. Patient less dyspneic and more comfortable. Pericardial drain remains in place Patient without discomfort currently.No chest pains Underlying rhythm appears to be accelerated junctional possible atypical flutter. Will follow on telemetry no further antiarrhythmics or beta-blockers for time being Anticoagulation currently contraindicated, warfarin will be held Patient will be followed in the intensive care unit with pericardial drain in place.
[2020-07-23 19:40] LABS: Pericardial Fluid Appearance CLOUDY; Pericardial Fluid Color RED; RBC Pericardial Fluid (A) 37000 /uL; WBC Pericardial Fluid (A) 520 /ul
[2020-07-23 19:42] LABS: Eosinophils, Fluid 2 %; Lymphocytes, Fluid 14 %; Mono,Macrophage,Mesothelial 2 %; Neutrophils, Fluid 82 %
--- NOTE | 2020-07-23 19:45 | Critical Care Consultation ---
Date of Consultation July 23, 2020 Assessment & Plan (1) Admitted to intensive care unit: Reason Critically Ill: 74-year-old male with large pericardial effusion with cardiac tamponade status post pericardiocentesis with evacuation of 870 milliliters of serosanguineous fluid requiring close hemodynamic monitoring status post procedure. NEURO - * CAM ICU: Negative * Pain: Percocet as needed. CARDIAC/VASCULAR - * Pericardial effusion with cardiac tamponade: * Likely secondary to recent aortic valve replacement. * Doing well status post pericardiocentesis. * Only scant drainage at this time. * Appreciate ongoing cardiology recommendations. * Monitor closely for any increasing bleeding. * Monitor on telemetry. RESPIRATORY - * No history of pulmonary disease. * Saturating well on room air. * Pleural effusion likely secondary to recent surgical intervention. GI/NUTRITION - * GERD * Prophylaxis: Continue home medications. RENAL/LYTES - * CKD 3 * Monitor electrolytes. Replace appropriately. - * History of BPH. ENDO - * Prediabetes * BSGs per unit protocol. ISS --> gtt per unit policy. HEME - * Stable H&H. * Monitor for drop in H&H status post pericardiocentesis. ID - * No immediate concern for infectious contribution at this point. LINES/IV ACCESS - * PIVs x2 * Pericardial drain DVT PROPHYLAXIS - * Hold on anticoagulation status post intervention and with recent dosing of Coumadin. * SCDs I have personally spent 35 minutes of critical care time in the direct management of this patient. This is a life/limb threatening event. This includes time spent evaluating patient, direct bedside care, chart review, placing orders, interpretation of diagnostic studies, discussion with consultants, patient, and family members, as well as other required patient management activities. This time is exclusive of all separately billable procedures, and teaching time and separate from and in addition to any other critical care service time. Thank you for allowing us to participate in the care of this patient. Please refer to my attending physician's documentation for any further recommendations. (2) S/P pericardiocentesis: (3) Pericardial effusion: (4) Pericardial effusion with cardiac tamponade: (5) Chest pain: (6) Breath shortness: (7) Pleural effusion, left: (8) Atrial fibrillation: (9) CKD (chronic kidney disease), stage III: (10) S/P AVR (aortic valve replacement): History of Present Illness Attending Physician: Duane Tate MD History of Present Illness Patient is a 74-year-old male with a significant past medical history of GERD, BPH, multiple abdominal surgeries, CKD 3, hypertension. Patient underwent aortic valve replacement on 07/10 at [facility]. He was hospitalized for approximately 1 week and subsequently discharged to home. Patient had a routine follow-up appointment yesterday with his women specialist office. During this visit, the patient was found to be in A. fib. He was asymptomatic at this point. The patient was started on Coumadin. He received initial dosing. Patient states that last evening into today he developed intense shortness of breath and feeling as though he could not catch his breath. Upon arrival in the emergency department, the patient was complaining of chest heaviness as well. Chest x-ray demonstrated cardiomegaly. Bedside echocardiogram was performed which demonstrated significant pericardial effusion with component of tamponade. Patient was taken emergently to the catheterization suite where pericardiocentesis was performed and 875 mL of serosanguineous fluid was drained. Pericardial drain was left in place. The patient was subsequently transferred to the ICU for continued monitoring. Upon evaluation in the ICU, the patient is awake, alert, and oriented. He complains of some mild discomfort at the pericardiocentesis site, but otherwise feels much better than presenting symptoms. Specifically, the patient denies any symptoms of palpitations, shortness of breath, pleuritic pain, headaches, dizziness, lightheadedness, hemoptysis, nausea, vomiting, or abdominal pain. Allergies Allergy/AdvReac Type Severity Reaction Status Date / Time adhesive Allergy Mild RASH Verified 04/07/20 07:02 meperidine AdvReac Unknown HALLUCINATI Verified 04/07/20 07:02 ONS Home Medications Home Medications Medication Instructions Recorded Confirmed Type albuterol sulfate 2 puff INHALATION QID PRN 07/23/20 07/23/20 History amoxicillin 2,000 mg PO ONCE PRN 07/23/20 07/23/20 History ascorbic acid (vitamin C) [Vitamin 500 mg PO DAILY 07/23/20 07/23/20 History C] aspirin [Aspir-81] 81 mg PO Q2D 07/23/20 07/23/20 History calcium citrate-vitamin D3 1 tab PO DAILY 07/23/20 07/23/20 History [Calcium Citrate + D] cholecalciferol (vitamin D3) 25 mcg PO DAILY 07/23/20 07/23/20 History docusate sodium [Colace] 100 mg PO DAILY 07/23/20 07/23/20 History fluticasone propionate 1 spray INTRANASAL BID 07/23/20 07/23/20 History furosemide 40 mg PO DAILY 07/23/20 07/23/20 History ginkgo biloba [Ginkoba] 40 mg PO DAILY 07/23/20 07/23/20 History glucos sul [id number]-[id number]-C-Mn 1 cap PO TID 07/23/20 07/23/20 History [Glucosamine Chondroitin] latanoprost 1 drp OPB DAILY 07/23/20 07/23/20 History lisinopril 5 mg PO DAILY 07/23/20 07/23/20 History omega-3 fatty acids-fish oil 1 cap PO DAILY 07/23/20 07/23/20 History [Storden 3 Fish Oil] omeprazole 20 mg PO DAILY 07/23/20 07/23/20 History oxycodone 5 mg PO Q4H PRN 07/23/20 07/23/20 History potassium chloride 10 meq PO DAILY 07/23/20 07/23/20 History vit no.[id number] 1 tab PO DAILY 07/23/20 07/23/20 History [ Vitamin] warfarin 5 mg PO DAILY 07/23/20 07/23/20 History Patient History Medical History Atrial fibrillation Benign hypertrophy of prostate CKD (chronic kidney disease), stage III GERD (gastroesophageal reflux disease) Hypertension Hypogonadism in male Pancreatitis history of Pre-diabetes Valvular heart disease aortic regurgitation. left ventricle thickening Surgical History H/O transurethral resection of prostate "Dr. Colt North 01/27/2015" H/O ventral hernia repair History of appendectomy History of cholecystectomy History of partial colectomy History of tonsillectomy History of tooth extraction all upper teeth removed History of total right hip arthroplasty "Dr. Barbosa 10/2013" Family History Father Diabetes Coronary heart disease COPD (chronic obstructive pulmonary disease) Social History Smoking Status: Former smoker Tobacco Type: Cigarettes Second Hand Exposure: No; Hx Alcohol Use: Yes Alcohol type: wine Hx Substance Use: No Preferred Language: Setswana Communication Ability: Effective Bilingual Customer Service Required: No Beliefs That Will Affect Care: None Current Living Situation: Alone Feels Safe at Home: No Is there a partner from a previous relationship who is making you feel unsafe now?: No Assistive Devices: None Review of Systems Review of Systems: A complete 10 point review of systems was reviewed with the patient with pertinent positives and negatives as per history of present il lness. All else were negative. Physical Exam Physical Exam: VITAL SIGNS - Vital signs and nursing notes were reviewed. GENERAL - 74-year-old male appearing his stated age who is in no acute distress. Communicates well with provider and answers questions appropriately. HEAD - NC/AT. EYES - PERRL with EOMI bilaterally. Sclera anicteric. EARS - No deformities of external structures noted on gross examination bilaterally. NOSE - Midline and without cyanosis. No epistaxis or purulent drainage noted. MOUTH/OROPHARYNX - Without perioral cyanosis. Buccal mucosa pink and moist and without leukoplakia. NECK - Neck with FROM. Supple to palpation. LUNGS - Chest wall symmetric without accessory muscle use, intercostals retractions, or central cyanosis. Normal vesicular breath sounds CTA B/L. No wheezes, rales, or rhonchi appreciated. CARDIAC - Drainage site to the LEFT sided chest wall clean, dry, and intact with scant serosanguineous drainage. RRR with S1/S2. No murmur, rubs, or gallops appreciated. No reproducible tenderness to palpation appreciated over the anterior chest wall. ABDOMEN - Abdominal contour flat without pulsations or visible masses. BS normoactive all four quadrants. No tenderness, palpable masses, hepatosplenomegaly, or ascites noted. EXTREMITIES - No clubbing or peripheral cyanosis. Mild pretibial edema present. +3/5 radial and dorsalis pedis pulses palpated throughout. +5/5 strength noted in UE/LE bilaterally. NEUROLOGIC - Cranial nerves II through XII grossly intact. Sensory intact to light touch throughout. PSYCH - A&Ox3 and cooperates fully with examiner. Pt is very pleasant and interacts well with examiner. Results & Data Results & Data ([facility]) Vital Signs (Past 12 Hours) Vital Signs Temp Pulse Pulse Resp BP BP Pulse Ox 07/23/20 18:45 90 24 117/65 97 07/23/20 18:30 99 H 22 102/67 97 07/23/20 18:15 97 H 20 105/77 97 07/23/20 18:00 98 H 23 99/62 L 95 07/23/20 17:45 100 H 24 104/67 92 07/23/20 17:43 92 07/23/20 17:40 98 H 24 112/64 92 07/23/20 17:31 95 H 20 94/62 L 07/23/20 17:20 36.8 C 98 H 100 H 20 104/67 92 07/23/20 15:53 101 H 22 110/84 95 07/23/20 15:12 101 H 22 110/84 95 07/23/20 15:11 93 H 20 96/68 L 95 07/23/20 15:01 100 H 20 99/68 L 95 07/23/20 15:00 100 H 20 96 07/23/20 14:30 104 H 22 96 07/23/20 14:01 89 20 140/89 07/23/20 14:00 87 18 07/23/20 13:58 88 20 07/23/20 13:57 94 H 20 97 07/23/20 13:54 90 20 114/78 07/23/20 13:44 36.8 C 98 H 20 136/90 97 Coding Level of Care Code Critical Care 1st 30-74 mins Diagnoses Admitted to intensive care unit Z78.9 S/P pericardiocentesis Z98.890 Pericardial effusion I31.3 Pericardial effusion with cardiac tamponade I31.3; I31.4 Chest pain R07.9 Chest pain type: unspecified Breath shortness R06.02 Pleural effusion, left J90 Atrial fibrillation I48.91 CKD (chronic kidney disease), stage III N18.30 S/P AVR (aortic valve replacement) Z95.2 Time Spent (min) 35 (1) Chest pain Chest pain type: unspecified Qualified Code(s): R07.9 - Chest pain, unspecified
[2020-07-23] MEDS ORDERED: ALBUTEROL HFA 8 GM INHALER INH PRN (19:46)
[2020-07-23 20:20] LABS: Hematocrit (blood only) 35.6 % (42-52); Hemoglobin 11.8 g/dL (14.0-18.0)
--- NOTE | 2020-07-23 20:27 | XCELERA ---
[id number]
[2020-07-23 20:39] LABS: BUN Creatinine Ratio 15.7 (10-20); Calcium 8.9 mg/dl (8.5-10.1); Creatinine Clr Calc Pharmacy 51.4 ml/min; Est GFR (Non-African American) 47.4; Potassium 3.8 mmol/L (3.5-5.1)
[2020-07-23] MEDS: FLUTICASONE PROPIONATE NA SPR 16 GM BTL SCH (21:12)
[2020-07-23] MEDS: oxyCODONE HCL IR 5 MG TAB (IMMEDIATE RELEASE) PO PRN (23:09)
[2020-07-24] MEDS: oxyCODONE HCL IR 5 MG TAB (IMMEDIATE RELEASE) PO PRN (03:14)
[2020-07-24 04:56] LABS: Basophils # (auto) 0.01 K/uL (0-0.2); Basophils % (auto) 0.1 %; Eosinophils # (auto) 0.02 K/uL (0-0.5); Eosinophils % (auto) 0.1 %; Hematocrit (blood only) 38.1 % (42-52); Hemoglobin 12.7 g/dL (14.0-18.0); Immature Granulocytes # (auto) 0.03 K/uL (0.00-0.02); Immature Granulocytes % (auto) 0.2 %; Lymphocytes # (auto) 1.03 K/uL (1.2-3.4); Lymphocytes % (auto) 7.1 %; Mean Corpuscular Hemoglobin 30.7 pg (25-34); Mean Corpuscular Hgb Conc 33.3 g/dL (32-36); Mean Platelet Volume 9.5 fL (7.4-10.4); Monocytes # (auto) 1.27 K/uL (0.11-0.59); Monocytes % (auto) 8.7 %; Neutrophils # (auto) 12.22 K/uL (1.4-6.5); Neutrophils % (auto) 83.8 %; Platelet Count 504 K/uL (130-400); RDW Coefficient of Variation 13.6 % (11.5-14.5); RDW Standard Deviation 45.6 fL (36.4-46.3); Red Blood Count 4.14 M/uL (4.7-6.1); White Blood Count 14.58 K/uL (4.8-10.8)
[2020-07-24 05:23] LABS: BUN Creatinine Ratio 17.2 (10-20); Calcium 9.1 mg/dl (8.5-10.1); Creatinine Clr Calc Pharmacy 62.1 ml/min; Est GFR (African American) 69.1; Est GFR (Non-African American) 59.6; Magnesium 1.5 mg/dl (1.8-2.4); Phosphorus 2.9 mg/dl (2.5-4.9); Potassium 3.9 mmol/L (3.5-5.1)
--- NOTE | 2020-07-24 05:34 | Electrocardiogram Report ---
Test Reason : Blood Pressure : / mmHG Vent. Rate : 103 BPM Atrial Rate : 119 BPM P-R Int : 448 ms QRS Dur : 080 ms QT Int : 340 ms P-R-T Axes : 067 063 092 degrees QTc Int : 445 ms Atrial fibrillation with rapid ventricular response Low voltage QRS Cannot rule out Anterior infarct , age undetermined Abnormal ECG When compared with ECG of 13-DEC-2015 07:04, Atrial fibrillation has replaced Sinus rhythm Vent. rate has increased BY 55 BPM Minimal criteria for Anterior infarct are now Present Confirmed by Glenroy Murphy ([id number]) on 07/24/2020 5:33:36 AM Referred By: Confirmed By:Glenroy Murphy
[2020-07-24] MEDS: MAGNESIUM SULFATE / D5W 1 GM/100 ML BAG IV SCH ×2 (06:46→08:36)
[2020-07-24] MEDS ORDERED: MAGNESIUM OXIDE 400 MG TAB PO ONE (06:57)
--- NOTE | 2020-07-24 07:02 | Critical Care Progress Note ---
Date of Service July 24, 2020 Assessment & Plan (1) Admitted to intensive care unit: Reason Critically Ill: 74-year-old male with large pericardial effusion with evidence of ensuing cardiac tamponade, status post pericardiocentesis with evacuation of 870 milliliters of serosanguineous fluid on 07/23. He was sent to the ICU for close hemodynamic monitoring status post procedure. Overnight, the patient has remained hemodynamically stable and has had only minimal blood- tinged serosanguineous output through his pericardial drain. Patient is able to be downgraded per recommendations of cardiology service. NEURO - CAM ICU: Negative - Percocet prn for pain control CARDIAC/VASCULAR - * Pericardial effusion with cardiac tamponade: - s/p pericardiocentesis on 07/23 with removal of 870 ml of serosan fluid - post-operative echo showed removal of nearly all fluid from pericardium - pericardial fluid analysis benign - etiology of effusion likely secondary to recent aortic valve replacement (two weeks [employer]) - pericardial drain removal by interventional cardiology today - cardiology following, appreciate recs * Atrial fibrillation - patient found to be in A-fib during office visit on 07/23, at which time he was initiated on Coumadin - likely provoked by pericardial effusion - continue to hold anticoagulation as patient is at increased bleeding risk from recent pericardiocentesis RESPIRATORY - * Bilateral Pleural Effusions - moderate left sided, small right sided effusions - suspect secondary to recent pericardial effusion with tamponade physiology - continue lasix 40mg - No history of pulmonary disease. GI/NUTRITION - * GERD - continue protonix 40mg, daily - Heart Healthy diet RENAL/LYTES - * Hx CKD 3 - Cr at 1.20 today, from from 1.45 - Monitor electrolytes. Replace appropriately. - * History of BPH - patient currently not on any pharmacotherapy ENDO - * Prediabetes - BSGs per unit protocol. ISS --> gtt per unit policy. HEME - - hgb stable at 12.7 ID - * Leukocytosis - WBC elevated to 14.5 with neutrophil predom - likely reactive - No concern for infectious contribution at this point. - COVID 19 neg LINES/IV ACCESS -PIVs x2, Pericardial drain DVT PROPHYLAXIS - Bilateral SCDs, Hold on anticoagulation status post intervent ion and with recent dosing of Coumadin. Code Status: Full Admission and Anticipated Discharge Date Admission Date: July 23, 2020 Supervising Physician Co-Signing Physician Notes Dr. Crook was resident physician during care of patient. I separately evaluated patient for harrell portions of the history and the exam. I was present during the critical portion of medical decision making, and I discussed the case with the resident. I generally agree with the findings and plan. Anticipate discontinuation of pericardial drain, able to be downgraded per recommendations of cardiology. Was on anticoagulation for postprocedural atrial fibrillation, this is being held given the pericardial effusion. Subjective Patient reports he is doing well today - he does report some soreness at the site of the drain placement. Otherwise, no chest pain or SOB Review of Systems Review of Systems: All systems reviewed & are unremarkable except as noted in HPI & below Physical Exam Constitutional: WD/WN, vitals as above cooperative Eyes: + anicteric sclerae ENMT: external ear and nose normal, oropharynx normal Neck: normal visual inspection and trachea midline Respiratory: normal respiratory effort, lungs clear to auscultation + tachypneic Cardiovascular: RRR, no murmur, no edema Heart Sounds: normal S1, normal S2 and + murmur (systolic ejection ) Extremities: + pedal edema (trace ) Chest (Breasts): Additional Comments: Pericardial drain in place. Draining minimal amount of blood tinged fluid. Gastrointestinal (Abdomen): normal bowel sounds, soft, nontender, no hepatosplenomegaly Skin: no rashes, warm and dry Psychiatric: A+Ox3, euthymic affect Results & Data Results & Data ([facility]) Vital Signs (Past 12 Hours) Vital Signs Temp Pulse Resp BP Pulse Ox 07/24/20 06:00 100 H 28 H 115/71 89 L 07/24/20 05:00 79 23 115/70 90 07/24/20 04:00 36.7 C 87 30 H 115/67 90 07/24/20 03:01 88 33 H 120/68 90 07/24/20 02:00 88 28 H 121/70 91 07/24/20 01:00 82 26 H 109/64 92 07/24/20 00:00 36.6 C 76 29 H 94/61 L 91 07/23/20 23:00 84 32 H 130/60 96 07/23/20 22:00 74 27 H 108/59 L 94 07/23/20 21:00 86 34 H 98/59 L 92 07/23/20 20:00 36.7 C 96 H 28 H 121/61 92 07/23/20 19:16 104 H 32 H 102/71 97 Resident Activity Tracking Resident Involvement: Resident Care Provided Care Provided: Adult Hospital Medicine
[2020-07-24] MEDS: ASCORBIC ACID 500 MG TAB PO SCH (07:48)
[2020-07-24] MEDS: CHOLECALCIFEROL 1,000 UNITS 25 MCG TAB PO SCH (07:48)
[2020-07-24] MEDS: FUROSEMIDE 40 MG TAB PO SCH (07:48)
[2020-07-24] MEDS: PRENATAL VITAMIN 1 TAB PO SCH (07:49)
[2020-07-24] MEDS: PANTOprazole 40 MG TAB PO SCH (07:49)
[2020-07-24] MEDS: POTASSIUM CHLORIDE 10 MEQ TABCR PO SCH (07:49)
[2020-07-24] MEDS: OMEGA-3 (PURIFIED FISH OIL) 1 GM CAP PO SCH (07:49)
[2020-07-24] MEDS: lisinopril 5 MG TAB PO SCH (07:49)
[2020-07-24] MEDS: CALCIUM 600MG + VIT D 400 IU TAB PO SCH (07:49)
[2020-07-24] MEDS: FLUTICASONE PROPIONATE NA SPR 16 GM BTL SCH ×2 (07:51→20:55)
[2020-07-24] MEDS: LATANOPROST 0.005% OP SOLN 2.5 ML BTL OPB SCH (07:51)
--- NOTE | 2020-07-24 07:52 | XRay Report ---
XR chest 1V portable HISTORY: Shortness of breath. COMPARISON: Chest 07/23/2020. FINDINGS: Moderate left and small right pleural effusions persist. Bibasilar densities and mild conge stive change are again noted. No pneumothorax. There are poststernotomy changes. The heart remains mi ldly enlarged. IMPRESSION: No change in the bilateral pleural effusions and bibasilar densities. ACT 112: Negative or not required by law. Electronically signed by: Ben Hightower M.D. 07/24/2020 7:50 AM
[2020-07-24] MEDS: DOCUSATE SODIUM 100 MG CAP PO SCH (07:55)
--- NOTE | 2020-07-24 10:27 | Billing Data ---
Date of Service July 24, 2020 Coding Level of Care Code 47208 Subseq Hosp Care Lvl 3
--- NOTE | 2020-07-24 11:51 | Hospitalist Progress Note ---
Date of Service July 24, 2020 Assessment & Plan (1) Pericardial effusion with cardiac tamponade: -This is a 74-year-old male who is significant past medical history of HTN, chronic HFpEF, prediabetes, CKD stage III, left adrenal mass, recent bioprosthetic aortic valve replacement who presents to ED on 07/23/2020 secondary to chest pain shortness of breath x1 day. Patient underwent urgent echocardiogram in ED which revealed large pericardial effusion with hemodynamic compromise and tamponade. He was sent for urgent pericardiocentesis with 875 mL extracted, performed by Dr. Tejeda, transferred to ICU for ongoing critical care. -07/24/2020: patient seen and examined by hospitalist while in the ICU. Patient continues to have the drain from the pericardiocentesis. Still draining output as per nurse. awaiting further evaluation by Dr. Tejeda when the drain can be removed. Patient otherwise comfortable, no acute distress. Breaths on nasal cannula 2 liter/s min. No subjective dyspnea. He denies acute pain anywhere and denies other symptoms. He reports that the bilateral lower extremity edema is chronic (2) Pleural effusion, left: - 07/23/2020 CXR 1. Cardiomegaly without radiographic evidence of congestive failure. 2. Left pleural effusion with left basilar consolidation. 3. Trace pleural effusion is also seen on the right -on home dose Lasix 40 mg daily (3) S/P AVR (aortic valve replacement): -status post aortic valve replacement on July 10, 2020 with [facility]. Follow-ups include PCP Dr. Ewing upon discharge along with appropriate follow- up with valve clinic at [facility] Dr. Ballesteros (4) Paroxysmal atrial fibrillation: -diagnosed on EKG in outpatient clinic 07/22/2020 -(metoprolol recently discontinued during recent hospitalization at [facility], was started on warfarin 5 mg on 07/23/2020) -further anticoagulation strategy will depend on drain output from the pericardiocentesis and inpatient cardiology service (5) Hypertension: -on lisinopril 5 mg daily, Lasix 40 mg daily (6) CKD (chronic kidney disease), stage III: -monitor renal function (7) Pre-diabetes: -HbA1c 6.0 07/02/2020 (8) Esophageal reflux: -pantoprazole (9) DVT prophylaxis: -SCDs Full Code Admission and Anticipated Discharge Date Admission Date: July 23, 2020 Subjective -07/24/2020: patient seen and examined by hospitalist while in the ICU. Patient continues to have the drain from the pericardiocentesis. Still draining output as per nurse. awaiting further evaluation by Dr. Tejeda when the drain can be removed. Patient otherwise comfortable, no acute distress. Breaths on nasal cannula 2 liter/s min. No subjective dyspnea. He denies acute pain anywhere and denies other symptoms. He reports that the bilateral lower extremity edema is chronic Review of Systems Review of Systems: All systems reviewed & are unremarkable except as noted in Subjective Physical Exam Constitutional: comfortable Eyes: PERRL, conjunctivae normal, anicteric sclerae EOM intact bilaterally ENMT: external ear and nose normal, oropharynx normal Neck: normal visual inspection Respiratory: normal respiratory effort Cardiovascular: Rate/Rhythm: regular rate Chest (Breasts): Additional Comments: midline chest scar, drain from the pericardial window Gastrointestinal (Abdomen): normal bowel sounds, soft, nontender, no hepatosplenomegaly Musculoskeletal: Head/Neck/Chest: normocephalic and head atraumatic Extremities: + lower extremity abnormal to inspection (bilateral lower extremity edema) Neurologic: PERRL, EOMI, accommodation nl, no face palsy, no dysarthria CN's II-XI intact bilaterally Psychiatric: A+Ox3, euthymic affect Results & Data Results & Data ([facility]) Vital Signs (Past 12 Hours) Vital Signs Temp Pulse Resp BP Pulse Ox 07/24/20 08:00 36.8 C 98 H 25 H 108/64 91 07/24/20 07:03 103 H 26 H 110/74 92 07/24/20 07:00 88 29 H 110/74 92 07/24/20 06:00 100 H 28 H 115/71 89 L 07/24/20 05:00 79 23 115/70 90 07/24/20 04:00 36.7 C 87 30 H 115/67 90 07/24/20 03:01 88 33 H 120/68 90 07/24/20 02:00 88 28 H 121/70 91 07/24/20 01:00 82 26 H 109/64 92 07/24/20 00:00 36.6 C 76 29 H 94/61 L 91
--- NOTE | 2020-07-24 12:52 | Cardiology Progress Note ---
Date of Service July 24, 2020 Assessment & Plan (1) Pericardial effusion with cardiac tamponade: Patient is 74-year-old male status post aortic valve replacement on 07/10/2020 presents with rapidly progressive symptoms of dyspnea orthopnea and positional chest pain x2 to 3 days. Symptoms were associated with intermittent atrial fibrillation however echocardiogram performed in acute evaluation demonstrates large circumferential pericardial effusion with hemodynamic effect/tamponade. Patient status post pericardiocentesis last evening with 875cc fluid removal and drainage. Patient improved hemodynamically and only minimal drainage at this time Anticipate catheter removal later today. We will continue the hospital med Repeat echocardiogram in a.m. Begin oral colchicine (2) S/P AVR (aortic valve replacement): Valve structure appears grossly normal in function no valvular insufficiency with limited Doppler performed (3) Paroxysmal atrial fibrillation: Will reassess rhythm post pericardiocentesis patient anticoagulation indications will be dependent on plans. Current rhythm accelerated junctional with intermittent AV synchrony (4) CKD (chronic kidney disease), stage III: (5) Pleural effusion, left: Will reassess once pericardial catheter removed Admission and Anticipated Discharge Date Admission Date: July 23, 2020 Subjective Patient seen and examined, chart, medications, telemetry reviewed. Respiratory status significantly improved. Still with occasional pleuritic discomfort. Scant drainage from pericardial catheter. Review of Systems Review of Systems: All systems reviewed & are unremarkable except as noted in HPI & below Physical Exam Constitutional: WD/WN, vitals as above Eyes: PERRL, conjunctivae normal, anicteric sclerae ENMT: external ear and nose normal, oropharynx normal Neck: trachea midline, no thyromegaly Respiratory: Auscultation: + bronchial breath sounds (Left base) Cardiovascular: Rate/Rhythm: regular rate Heart Sounds: normal S1 and + murmur (Grade 2/ 6 systolic) Vessels: no JVD Extremities: + edema (Trace) Gastrointestinal (Abdomen): normal bowel sounds, soft, nontender, no hepatosplenomegaly Musculoskeletal: no cyanosis or clubbing, extremities motor strength 5/5 Neurologic: PERRL, EOMI, accommodation nl, no face palsy, no dysarthria Psychiatric: A+Ox3, euthymic affect Results & Data ([facility]) Vital Signs (Past 12 Hours) Vital Signs Temp Pulse Resp BP Pulse Ox 07/24/20 12:00 92 H 31 H 114/60 90 07/24/20 11:01 98 H 24 92/62 L 92 07/24/20 10:00 93 H 32 H 113/65 90 07/24/20 09:00 108 H 26 H 88/66 L 90 07/24/20 08:00 36.8 C 98 H 25 H 108/64 91 07/24/20 07:03 103 H 26 H 110/74 92 07/24/20 07:00 88 29 H 110/74 92 07/24/20 06:00 100 H 28 H 115/71 89 L 07/24/20 05:00 79 23 115/70 90 07/24/20 04:00 36.7 C 87 30 H 115/67 90 07/24/20 03:01 88 33 H 120/68 90 07/24/20 02:00 88 28 H 121/70 91 07/24/20 01:00 82 26 H 109/64 92
[2020-07-24] MEDS: MAGNESIUM OXIDE 400 MG TAB PO SCH ×2 (15:42→20:56)
[2020-07-24] MEDS: COLCHICINE 0.6 MG TAB PO SCH ×2 (20:56→21:00)
[2020-07-25 04:36] LABS: Basophils # (auto) 0.01 K/uL (0-0.2); Basophils % (auto) 0.1 %; Eosinophils # (auto) 0.02 K/uL (0-0.5); Eosinophils % (auto) 0.2 %; Hematocrit (blood only) 36.2 % (42-52); Hemoglobin 11.7 g/dL (14.0-18.0); Immature Granulocytes # (auto) 0.02 K/uL (0.00-0.02); Immature Granulocytes % (auto) 0.2 %; Lymphocytes # (auto) 1.23 K/uL (1.2-3.4); Lymphocytes % (auto) 11.5 %; Mean Corpuscular Hemoglobin 29.9 pg (25-34); Mean Corpuscular Hgb Conc 32.3 g/dL (32-36); Mean Corpuscular Volume 92.6 fL (80-100); Mean Platelet Volume 9.5 fL (7.4-10.4); Monocytes # (auto) 1.42 K/uL (0.11-0.59); Monocytes % (auto) 13.2 %; Neutrophils # (auto) 8.02 K/uL (1.4-6.5); Neutrophils % (auto) 74.8 %; Platelet Count 452 K/uL (130-400); RDW Coefficient of Variation 13.7 % (11.5-14.5); RDW Standard Deviation 46.4 fL (36.4-46.3); Red Blood Count 3.91 M/uL (4.7-6.1); White Blood Count 10.72 K/uL (4.8-10.8)
[2020-07-25 04:43] LABS: INR 1.3 (0.9-1.1); Prothrombin Time 13.5 Seconds (9.0-12.0)
[2020-07-25 04:58] LABS: BUN Creatinine Ratio 17.4 (10-20); Creatinine Clr Calc Pharmacy 55.7 ml/min; Est GFR (African American) 62.2; Est GFR (Non-African American) 53.6; Magnesium 2.2 mg/dl (1.8-2.4); Potassium 4.4 mmol/L (3.5-5.1)
[2020-07-25 05:11] LABS: Phosphorus 3.5 mg/dl (2.5-4.9)
--- NOTE | 2020-07-25 06:57 | Critical Care Progress Note ---
Date of Service July 25, 2020 Assessment & Plan (1) Admitted to intensive care unit: Reason Critically Ill: 74-year-old male with large pericardial effusion with evidence of ensuing cardiac tamponade, status post pericardiocentesis with evacuation of 870 milliliters of serosanguineous fluid on 07/23. He was sent to the ICU for close hemodynamic monitoring status post procedure. Yesterday his pericardial drain was removed. Overnight, the patient has remained hemodynamically stable. He will have a repeat echo this morning. Patient is able to be downgraded per recommendations of cardiology service. NEURO - CAM ICU: Negative - Percocet prn for pain control CARDIAC/VASCULAR - * Pericardial effusion with cardiac tamponade: - s/p pericardiocentesis on 07/23 with removal of 870 ml of serosan fluid - post-operative echo showed removal of nearly all fluid from pericardium - pericardial fluid analysis benign - etiology of effusion likely secondary to recent aortic valve replacement (07/10/20) - pericardial drain removed on 07/24/20 - repeat echo today - cardiology following, appreciate recs * Atrial fibrillation - patient found to be in A-fib during office visit on 07/23, at which time he was initiated on Coumadin - likely provoked by pericardial effusion - rhythm now consistent with an accelerated junctional with intermittent AV synchrony - [id number] score of 2 - continue to hold anticoagulation as patient is at increased bleeding risk from recent pericardiocentesis * Hypertension - continue home dose lisinopril RESPIRATORY - * Bilateral Pleural Effusions - moderate left sided, small right sided effusions - suspect secondary to recent pericardial effusion with tamponade physiology - repeat CXR today - continue lasix 40mg - since patient is not experiencing any dyspnea, would not recommend thoracentesis at this time - No history of pulmonary disease. GI/NUTRITION - * GERD - continue protonix 40mg, daily - Heart Healthy diet RENAL/LYTES - * Hx CKD 3 - Cr at 1.20, down from 1.45 - Monitor electrolytes. Replace appropriately. - * History of BPH - patient currently not on any pharmacotherapy ENDO - * Prediabetes - BSGs per unit protocol. ISS --> gtt per unit policy. HEME - - hgb has remained between 11 and 12 since admission ID - * Leukocytosis - resolved - WBC elevated to 14.5 on admission, now normalized - likely reactive - No concern for infectious contribution at this point. - COVID 19 neg LINES/IV ACCESS -PIVs DVT PROPHYLAXIS - Bilateral SCDs, Hold on anticoagulation status post intervention and with recent dosing of Coumadin. Code Status: Full Admission and Anticipated Discharge Date Admission Date: July 23, 2020 Supervising Physician Co-Signing Physician Notes Dr Crook was the resident-physician during care of patient. I separately eval uated patient for harrell portions of the history and the exam. I was present during the critical portion of medical decision making, and I discussed the case with the resident. I generally agree with the findings and plan except for any additions/exceptions noted. Patient seen and examined at bedside. No acute distress, no adverse events overnight. Patient states that he feels better compared to yesterday. Pericardiocentesis catheter has been removed. Continue with colchicine. Patient denies any shortness of breath. No palpitation. No headache, no dizziness. He was coughing a early in the morning, dry. No hemoptysis. Patient does have left-sided pleural effusion with possible atelectasis of the left lower lobe. Patient is in no acute distress when it comes to his breathing. He saturating 96-98% on room air. Continue with diuresis. No acute indication to have thoracentesis done. Incentive spirometry and flutter valve for the left lower lobe atelectasis possibly. Patient will be transferred to telemetry floor. Please note the above document was generated using voice recognition software. It may contain grammatical, syntax or spelling errors.Any formal questions or concerns about the content, text or information contained within the body of this dictation should be directly addressed to the provider for clarification. Subjective No acute events overnight - he is coughing quite a bit when laying in bed this morning. Cough improved somewhat when he moved to an upright position. He says he has been coughing "on an off" since his aortic valve replacement procedure Review of Systems Respiratory: + cough; no dyspnea Cardiovascular: no chest pain Physical Exam Constitutional: WD/WN, vitals as above cooperative Eyes: + anicteric sclerae ENMT: external ear and nose normal, oropharynx normal Neck: normal visual inspection and trachea midline Respiratory: normal respiratory effort, + cough and + tachypneic breaths are swallow, air movement is restricted in bilateral lower lung allen Cardiovascular: RRR, no murmur, no edema Heart Sounds: normal S1, normal S2 and + murmur (systolic ejection ) Extremities: + pedal edema (trace ) Gastrointestinal (Abdomen): normal bowel sounds, soft, nontender, no hepatosplenomegaly Skin: no rashes, warm and dry Psychiatric: A+Ox3, euthymic affect Results & Data Results & Data ([facility] [place]) Vital Signs (Past 12 Hours) Vital Signs Temp Pulse Resp BP Pulse Ox 07/25/20 06:04 92 H 33 H 128/73 92 07/25/20 05:05 103 H 25 H 111/94 90 07/25/20 04:05 36.7 C 82 22 151/73 H 92 07/25/20 03:04 76 28 H 94/63 L 92 07/25/20 02:04 80 29 H 112/60 92 07/25/20 01:04 83 26 H 102/69 92 07/25/20 00:04 36.8 C 87 28 H 92/71 L 91 07/24/20 23:04 100 H 26 H 99/72 L 90 07/24/20 22:09 81 27 H 104/80 91 07/24/20 21:04 80 29 H 99/72 L 92 07/24/20 20:04 36.7 C 86 29 H 103/70 93 07/25/20 03:57 07/25/20 03:57 Resident Activity Tracking Resident Involvement: Resident Care Provided Care Provided: Adult Hospital Medicine
[2020-07-25] MEDS: MAGNESIUM OXIDE 400 MG TAB PO SCH ×2 (08:35→21:22)
[2020-07-25] MEDS: DOCUSATE SODIUM 100 MG CAP PO SCH (08:35)
[2020-07-25] MEDS: FLUTICASONE PROPIONATE NA SPR 16 GM BTL SCH ×2 (08:35→21:02)
[2020-07-25] MEDS: COLCHICINE 0.6 MG TAB PO SCH ×2 (08:35→21:10)
[2020-07-25] MEDS: lisinopril 5 MG TAB PO SCH (08:36)
[2020-07-25] MEDS: PANTOprazole 40 MG TAB PO SCH ×2 (08:36→21:11)
[2020-07-25] MEDS: PRENATAL VITAMIN 1 TAB PO SCH (08:36)
[2020-07-25] MEDS: ASCORBIC ACID 500 MG TAB PO SCH (08:36)
[2020-07-25] MEDS: POTASSIUM CHLORIDE 10 MEQ TABCR PO SCH (08:37)
[2020-07-25] MEDS: CALCIUM 600MG + VIT D 400 IU TAB PO SCH (08:37)
[2020-07-25] MEDS: FUROSEMIDE 40 MG TAB PO SCH (08:37)
[2020-07-25] MEDS: OMEGA-3 (PURIFIED FISH OIL) 1 GM CAP PO SCH (08:37)
[2020-07-25] MEDS: CHOLECALCIFEROL 1,000 UNITS 25 MCG TAB PO SCH (08:37)
[2020-07-25] MEDS: LATANOPROST 0.005% OP SOLN 2.5 ML BTL OPB SCH (08:38)
--- NOTE | 2020-07-25 10:00 | XRay Report ---
SINGLE VIEW CHEST CLINICAL HISTORY: Left pleural effusion. FINDINGS: An AP, portable, upright chest radiograph is compared to study dated 07/24/2020. The examin ation is degraded by portable technique and patient rotation. The patient is status post midline ster notomy. The heart is enlarged. The pulmonary vasculature is noncongested. There is a left pleural eff usion with associated left basilar consolidation. A small pleural effusion is also seen on the right with increasing right basilar opacities. No pneumothorax is seen. The skeletal structures are osteope jonathon. The bony thorax is grossly intact. IMPRESSION: 1. Cardiomegaly without radiographic evidence of congestive failure. 2. A left pleural effusion with left basilar consolidation is unchanged. 3. A small pleural effusion is also seen on the right, with increasing opacities at the right lung ba se as compared to yesterday. ACT 112: Negative or not required by law. Electronically signed by: Young Moss M.D. 07/25/2020 9:59 AM
[2020-07-25] MEDS: IBUPROFEN 600 MG TAB PO SCH ×2 (11:14→17:54)
--- NOTE | 2020-07-25 11:41 | Hospitalist Progress Note ---
Date of Service July 25, 2020 Assessment & Plan (1) Pericardial effusion with cardiac tamponade: -This is a 74-year-old male who is significant past medical history of HTN, chronic HFpEF, prediabetes, CKD stage III, left adrenal mass, recent bioprosthetic aortic valve replacement who presents to ED on 07/23/2020 secondary to chest pain shortness of breath x1 day. Patient underwent urgent echocardiogram in ED which revealed large pericardial effusion with hemodynamic compromise and tamponade. He was sent for urgent pericardiocentesis with 875 mL extracted, performed by Dr. Tejeda, transferred to ICU for ongoing critical care. -07/24/2020: patient seen and examined by hospitalist while in the ICU. Patient continues to have the drain from the pericardiocentesis. Still draining output as per nurse. awaiting further evaluation by Dr. Tejeda when the drain can be removed. Patient otherwise comfortable, no acute distress. Breaths on nasal cannula 2 liter/s min. No subjective dyspnea. He denies acute pain anywhere and denies other symptoms. He reports that the bilateral lower extremity edema is chronic -pericardial fluid analysis benign, etiology of effusion likely secondary to recent aortic valve replacement (07/10/20), pericardial drain removed on 07/24/20 -on colchicine from 07/24/2020, cardiology ordered Ibuprofen -echocardiogram on 07/25/2020 with appropriately functioning bioprosthetic valve, mild circumferential pericardical effusion (2) Pleural effusion, left: - 07/23/2020 CXR 1. Cardiomegaly without radiographic evidence of congestive failure. 2. Left pleural effusion with left basilar consolidation. 3. Trace pleural effusion is also seen on the right -on home dose Lasix 40 mg daily (3) S/P AVR (aortic valve replacement): -status post aortic valve replacement on July 10, 2020 with [facility]. Follow-ups include PCP Dr. Ewing upon discharge along with appropriate follow- up with valve clinic at [facility] Dr. Ballesteros (4) Paroxysmal atrial fibrillation: -diagnosed on EKG in outpatient clinic 07/22/2020 -(metoprolol recently discontinued during recent hospitalization at [place], was started on warfarin 5 mg on 07/23/2020) -further anticoagulation strategy will depend on inpatient cardiology service recommendations (5) Hypertension: -on lisinopril 5 mg daily, Lasix 40 mg daily (6) CKD (chronic kidney disease), stage III: -renal function stable (7) Pre-diabetes: -HbA1c 6.0 07/02/2020 (8) Esophageal reflux: -pantoprazole (9) DVT prophylaxis: -SCDs Full Code Admission and Anticipated Discharge Date Admission Date: July 23, 2020 Subjective Patient in no acute distress. Breathing comfortably. No acute chest pain symptoms. no pain elsewhere. Patient eating the food. no vomiting. denies other symptoms. he has not ambulated yet in the hospital [facility]. he is waiting cardi ology physician Review of Systems Review of Systems: All systems reviewed & are unremarkable except as noted in Subjective Physical Exam Constitutional: comfortable Eyes: PERRL, conjunctivae normal, anicteric sclerae EOM intact bilaterally ENMT: external ear and nose normal, oropharynx normal Neck: normal visual inspection Respiratory: normal respiratory effort Cardiovascular: Rate/Rhythm: regular rate Gastrointestinal (Abdomen): normal bowel sounds, soft, nontender, no hepatosplenomegaly Musculoskeletal: Head/Neck/Chest: normocephalic and head atraumatic Extremities: + lower extremity abnormal to inspection (bilateral lower extremity edema) Neurologic: PERRL, EOMI, accommodation nl, no face palsy, no dysarthria CN's II-XI intact bilaterally Psychiatric: A+Ox3, euthymic affect Results & Data Results & Data ([facility]) Vital Signs (Past 12 Hours) Vital Signs Temp Pulse Resp BP Pulse Ox 07/25/20 10:04 94 H 29 H 84/56 L 94 07/25/20 09:04 101 H 24 119/61 96 07/25/20 08:04 109 H 31 H 127/64 93 07/25/20 08:00 36.9 C 07/25/20 07:04 88 24 97/66 L 93 07/25/20 06:04 92 H 33 H 128/73 92 07/25/20 05:05 103 H 25 H 111/94 90 07/25/20 04:05 36.7 C 82 22 151/73 H 92 07/25/20 03:04 76 28 H 94/63 L 92 07/25/20 02:04 80 29 H 112/60 92 07/25/20 01:04 83 26 H 102/69 92 07/25/20 00:04 36.8 C 87 28 H 92/71 L 91
--- NOTE | 2020-07-25 14:14 | Cardiology Progress Note ---
Date of Service July 25, 2020 Assessment & Plan (1) Pericardial effusion with cardiac tamponade: Patient is 74-year-old male status post aortic valve replacement on 07/10/2020 presents with rapidly progressive symptoms of dyspnea orthopnea and positional chest pain x2 to 3 days. Symptoms were associated with intermittent atrial fibrillation however echocardiogram performed in acute evaluation demonstrates large circumferential pericardial effusion with hemodynamic effect/tamponade. Patient status post pericardiocentesis on 07/23 with 875cc fluid removal and drainage. Patient improved hemodynamically and catheter removed 07/24 symptom free mild persistent effusion remains present with significant organization. Will add ibuprofen 600 mg every 8 hours along with the colchicine, steroids should be avoided at all costs GI prophylaxis as per primary team given significant NSAID use. Would prefer to monitor overnight in ICU and likely transfer to telemetry in the a.m. based on clinical status. We will likely repeat limited echocardiogram to follow the effusion prior to discharge. (2) S/P AVR (aortic valve replacement): Valve structure appears grossly normal in function no valvular insufficiency with limited Doppler performed (3) Paroxysmal atrial fibrillation: Current rhythm accelerated junctional with intermittent AV synchrony Would hold off on anticoagulation given the clinical context of postoperative pericardial effusion. We will continue to follow (4) CKD (chronic kidney disease), stage III: (5) Pleural effusion, left: Will reassess once pericardial catheter removed Admission and Anticipated Discharge Date Admission Date: July 23, 2020 Subjective Patient seen and examined, chart reviewed. Out of bed in chair with son at the bedside. States he is feeling well. His breathing is significantly improved and he denies any current chest pain, shortness of breath, palpitations, lightheadedness, dizziness or syncope. Telemetry reviewed: Multiple supraventricular rhythms including sinus, accelerated junctional rhythm and possible SVT. Review of Systems Review of Systems: All systems reviewed & are unremarkable except as noted in HPI & below Physical Exam Physical Exam: General: Awake, alert and oriented x 3. No acute distress. HEENT: Normocephalic, atraumatic. Pupils equal, round and reactive to light and accommodation. Extraocular muscles are intact. Anicteric sclera. Moist mucous membranes. Neck: No JVD. No bruit. Cardiovascular: Regular. Positive S-4. Normal S-1 and S-2. No S-3. 3/6 mid to late systolic ejection murmur, greatest at the right sternal border, second intercostal space with radiation to the bilateral carotids. Ventricular systolic rub is present. Pulmonary: Clear to auscultation bilaterally. No rales, rhonchi, or wheezing. Abdomen: Bowel sounds x 4, soft. No rebound, guarding or tenderness. No organomegaly. Extremities: No clubbing, cyanosis or edema. +2 pedal pulses bilaterally. Skin: Warm and dry. Results & Data ([facility]) Vital Signs (Past 12 Hours) Vital Signs Temp Pulse Resp BP Pulse Ox 07/25/20 10:04 94 H 29 H 84/56 L 94 07/25/20 09:04 101 H 24 119/61 96 07/25/20 08:04 109 H 31 H 127/64 93 07/25/20 08:00 36.9 C 07/25/20 07:04 88 24 97/66 L 93 07/25/20 06:04 92 H 33 H 128/73 92 07/25/20 05:05 103 H 25 H 111/94 90 07/25/20 04:05 36.7 C 82 22 151/73 H 92 07/25/20 03:04 76 28 H 94/63 L 92
[2020-07-26] MEDS: IBUPROFEN 600 MG TAB PO SCH ×3 (02:25→17:10)
[2020-07-26 04:44] LABS: Basophils # (auto) 0.02 K/uL (0-0.2); Basophils % (auto) 0.3 %; Eosinophils # (auto) 0.11 K/uL (0-0.5); Eosinophils % (auto) 1.6 %; Hematocrit (blood only) 34.4 % (42-52); Hemoglobin 11.3 g/dL (14.0-18.0); Immature Granulocytes # (auto) 0.03 K/uL (0.00-0.02); Immature Granulocytes % (auto) 0.4 %; Lymphocytes # (auto) 0.74 K/uL (1.2-3.4); Lymphocytes % (auto) 10.8 %; Mean Corpuscular Hemoglobin 30.2 pg (25-34); Mean Corpuscular Hgb Conc 32.8 g/dL (32-36); Mean Platelet Volume 9.5 fL (7.4-10.4); Monocytes # (auto) 0.69 K/uL (0.11-0.59); Monocytes % (auto) 10.1 %; Neutrophils # (auto) 5.25 K/uL (1.4-6.5); Neutrophils % (auto) 76.8 %; Platelet Count 418 K/uL (130-400); RDW Coefficient of Variation 13.5 % (11.5-14.5); RDW Standard Deviation 45.2 fL (36.4-46.3); Red Blood Count 3.74 M/uL (4.7-6.1); White Blood Count 6.84 K/uL (4.8-10.8)
[2020-07-26 05:05] LABS: Albumin Level 2.3 gm/dl (3.4-5.0); BUN Creatinine Ratio 23.6 (10-20); Calcium 8.3 mg/dl (8.5-10.1); Creatinine Clr Calc Pharmacy 53.8 ml/min; Est GFR (African American) 59.9; Est GFR (Non-African American) 51.7
[2020-07-26 05:08] LABS: Albumin Globulin Ratio 0.6 (0.9-2); Bilirubin,Total 0.6 mg/dl (0.2-1); Globulin 3.7 gm/dl (2.5-4.0)
[2020-07-26] MEDS: MAGNESIUM OXIDE 400 MG TAB PO SCH ×2 (08:09→20:28)
[2020-07-26] MEDS: COLCHICINE 0.6 MG TAB PO SCH ×2 (08:09→20:09)
[2020-07-26] MEDS: CALCIUM 600MG + VIT D 400 IU TAB PO SCH (08:09)
[2020-07-26] MEDS: OMEGA-3 (PURIFIED FISH OIL) 1 GM CAP PO SCH (08:09)
[2020-07-26] MEDS: lisinopril 5 MG TAB PO SCH (08:09)
[2020-07-26] MEDS: LATANOPROST 0.005% OP SOLN 2.5 ML BTL OPB SCH (08:10)
[2020-07-26] MEDS: FLUTICASONE PROPIONATE NA SPR 16 GM BTL SCH ×2 (08:10→20:10)
[2020-07-26] MEDS: ASCORBIC ACID 500 MG TAB PO SCH (08:10)
[2020-07-26] MEDS: CHOLECALCIFEROL 1,000 UNITS 25 MCG TAB PO SCH (08:10)
[2020-07-26] MEDS: PANTOprazole 40 MG TAB PO SCH ×2 (08:10→20:10)
[2020-07-26] MEDS: FUROSEMIDE 40 MG TAB PO SCH (08:10)
[2020-07-26] MEDS: PRENATAL VITAMIN 1 TAB PO SCH (08:10)
--- NOTE | 2020-07-26 08:42 | Procedure Note ---
Procedure Note Date of Service July 26, 2020 Bedside ultrasound: Left side of the chest: Small left-sided pleural effusion appreciated along with atelectatic left lung. Cardiac: Good ejection fraction, pericardial effusion appreciated. Coding CPT Codes Pulmonary/Thoracic - Pulmonary and Thoracic: 41099 US, Chest, real time with imaging documentation ([id number]) [facility] Procedure Codes ([place]) Pulmonary/Thoracic Procedure 1: Pulmonary and Thoracic: 59076 US, Chest, real time with imaging documentation
--- NOTE | 2020-07-26 08:43 | Critical Care Progress Note ---
Date of Service July 26, 2020 Assessment & Plan (1) Pericardial effusion: --Pericardial effusion with cardiac tamponade physiology S/p pericardiocentesis 07/23 and removal of 870 mL of fluid Pericardial drain removed 07/24/2020 Repeat echo shows small pericardial effusion with fibrinous material. Cardiology on board Has been started on colchicine and ibuprofen. 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 --Hypertension Continue with blood pressure medication --Prophylaxis VTE: IPC's GI: Protonix twice daily Lines: Peripheral Diet: Cardiac Plan: In/out: Positive weight 98, urine output 902 Patient has been hemodynamically stable while in the hospital. Small left-sided pleural effusion with atelectatic lung. Continue with incentive spirometry and flutter valve. Keep an eye on creatinine given the patient is on ibuprofen 3 times daily for pericardial effusion along with colchicine. Patient hemodynamically stable to be sent to a medical floor. Please note the above document was generated using voice recognition software. It may contain grammatical, syntax or spelling errors.Any formal questions or concerns about the content, text or information contained within the body of this dictation should be directly addressed to the provider for clarification. (2) Breath shortness: (3) Pleural effusion, left: (4) Paroxysmal atrial fibrillation: (5) S/P pericardiocentesis: Admission and Anticipated Discharge Date Admission Date: July 23, 2020 Subjective Patient seen and examined at bedside. No acute distress, no adverse events overnight. Denies any chest pain, no shortness of breath, no dizziness, no nausea or vomiting. No headache. Tolerating diet. Dry cough early in the morning. Patient has been using incentive spirometry as well as flutter valve. Review of Systems Review of Systems: All systems reviewed & are unremarkable except as noted in Subjective Physical Exam Physical Exam: Constitutional: No acute distress HEENT: EOMI, PERRLA Respiratory system: Decreased air entry bilaterally lower lobes, no wheeze, no rhonchi, mild crackles on the left side CVS: S1-S2 positive, no murmurs or gallops, sternotomy scar present Abdomen: Soft, nontender, nondistended, positive bowel sounds x4 Extremities: +2 pulses bilaterally radialis/ dorsalis pedis, no cyanosis, +1 pitting edema bilateral lower extremity Neuro: Awake alert oriented x3 Psych: Normal mood and affect G/U: No Mai Skin: no rashes, warm and dry Lymphatic: no cervical or axillary lymphadenopathy Results & Data Results & Data ([facility]) Vital Signs (Past 12 Hours) Vital Signs Temp Pulse Resp BP Pulse Ox 07/26/20 06:04 44 L 21 100/57 L 92 07/26/20 05:04 64 24 111/71 92 07/26/20 04:04 36.6 C 61 19 103/65 93 07/26/20 03:04 57 L 20 94/65 L 96 07/26/20 02:04 59 L 22 98/70 L 93 07/26/20 01:04 EST 62 21 101/65 93 07/26/20 00:06 54 L 22 94/59 L 90 07/26/20 00:05 36.7 C 57 L 21 95/59 L 94 07/25/20 23:04 69 26 H 93/61 L 93 07/25/20 22:00 67 27 H 115/65 93 07/26/20 04:16 07/26/20 04:16 Coding Level of Care Code 60952 Subseq Hosp Care Lvl 3 Diagnoses Pericardial effusion I31.3 Breath shortness R06.02 Pleural effusion, left J90 Paroxysmal atrial fibrillation I48.0 S/P pericardiocentesis Z98.890
--- NOTE | 2020-07-26 09:35 | Hospitalist Progress Note ---
Date of Service July 26, 2020 Assessment & Plan (1) Pericardial effusion with cardiac tamponade: -This is a 74-year-old male who is significant past medical history of HTN, chronic HFpEF, prediabetes, CKD stage III, left adrenal mass, recent bioprosthetic aortic valve replacement who presents to ED on 07/23/2020 secondary to chest pain shortness of breath x1 day. Patient underwent urgent echocardiogram in ED which revealed large pericardial effusion with hemodynamic compromise and tamponade. He was sent for urgent pericardiocentesis with 875 mL extracted, performed by Dr. Tejeda, transferred to ICU for ongoing critical care. -07/24/2020: patient seen and examined by hospitalist while in the ICU. Patient continues to have the drain from the pericardiocentesis. Still draining output as per nurse. awaiting further evaluation by Dr. Tejeda when the drain can be removed. Patient otherwise comfortable, no acute distress. Breaths on nasal cannula 2 liter/s min. No subjective dyspnea. He denies acute pain anywhere and denies other symptoms. He reports that the bilateral lower extremity edema is chronic -pericardial fluid analysis benign, etiology of effusion likely secondary to recent aortic valve replacement (07/10/20), pericardial drain removed on 07/24/20 -on colchicine from 07/24/2020, cardiology also ordered Ibuprofen -echocardiogram on 07/25/2020 with appropriately functioning bioprosthetic valve, mild circumferential pericardical effusion -07/26/2020: Patient sitting up in chair breathing on room air. He reports that he ambulated well with physical therapy on 07/25/2020. Patient denies acute symptoms of any chest discomforts. No abdomen discomforts. No nausea. no vomiting. Able to eat the meals. denies other symptoms -defer to cardiology service on length of stay in the hospital versus whether patient can be transferred to telemetry [facility] from ICU bed (2) Pleural effusion, left: - 07/23/2020 CXR 1. Cardiomegaly without radiographic evidence of congestive failure. 2. Left pleural effusion with left basilar consolidation. 3. Trace pleural effusion is also seen on the right - 07/26/2020 Bedside ultrasound by ICU doctor Left side of the chest: Small left-sided pleural effusion appreciated along with atelectatic left lung. Cardiac: Good ejection fraction, pericardial effusion appreciated. -on home dose Lasix 40 mg daily, continue (3) S/P AVR (aortic valve replacement): -status post aortic valve replacement on July 10, 2020 with [place]. Follow-ups include PCP Dr. Ewing upon discharge along with appropriate follow- up with valve clinic at [facility] Dr. Ballesteros (4) Paroxysmal atrial fibrillation: -diagnosed on EKG in outpatient clinic 07/22/2020 -(metoprolol recently discontinued during recent hospitalization at [place], was started on warfarin 5 mg on 07/23/2020) -further anticoagulation strategy will depend on inpatient cardiology service recommendations (5) Hypertension: -on lisinopril 5 mg daily, Lasix 40 mg daily (6) CKD (chronic kidney disease), stage III: -renal function stable (7) Pre-diabetes: -HbA1c 6.0 07/02/2020 (8) Esophageal reflux: -pantoprazole (9) DVT prophylaxis: -SCDs Full Code Admission and Anticipated Discharge Date Admission Date: July 23, 2020 Subjective Patient sitting up in chair breathing on room air. He reports that he ambulated well with physical therapy on 07/25/2020. Patient denies acute symptoms of any chest discomforts. No abdomen discomforts. No nausea. no vomiting. Able to eat the meals. denies other symptoms Review of Systems Review of Systems: All systems reviewed & are unremarkable except as noted in Subjective Physical Exam Constitutional: comfortable Eyes: PERRL, conjunctivae normal, anicteric sclerae EOM intact bilaterally ENMT: external ear and nose normal, oropharynx normal Neck: normal visual inspection Respiratory: normal respiratory effort no wheezing, on room air Cardiovascular: Rate/Rhythm: regular rate Gastrointestinal (Abdomen): normal bowel sounds, soft, nontender, no hepatosplenomegaly Musculoskeletal: Head/Neck/Chest: normocephalic and head atraumatic Neurologic: PERRL, EOMI, accommodation nl, no face palsy, no dysarthria CN' s II-XI intact bilaterally Psychiatric: A+Ox3, euthymic affect Results & Data Results & Data ([facility]) Vital Signs (Past 12 Hours) Vital Signs Temp Pulse Resp BP Pulse Ox 07/26/20 09:19 36.6 C 07/26/20 09:05 67 28 H 116/59 L 97 07/26/20 08:04 78 28 H 108/77 95 07/26/20 07:06 84 37 H 119/69 93 07/26/20 06:04 44 L 21 100/57 L 92 07/26/20 05:04 64 24 111/71 92 07/26/20 04:04 36.6 C 61 19 103/65 93 07/26/20 03:04 57 L 20 94/65 L 96 07/26/20 02:04 59 L 22 98/70 L 93 07/26/20 01:04 EST 62 21 101/65 93 07/26/20 00:06 54 L 22 94/59 L 90 07/26/20 00:05 36.7 C 57 L 21 95/59 L 94 07/25/20 23:04 69 26 H 93/61 L 93
[2020-07-26] MEDS: DOCUSATE SODIUM 100 MG CAP PO SCH (09:51)
[2020-07-26] MEDS: POTASSIUM CHLORIDE 10 MEQ TABCR PO SCH (09:51)
--- NOTE | 2020-07-26 12:59 | Cardiology Progress Note ---
Date of Service July 26, 2020 Assessment & Plan (1) Pericardial effusion with cardiac tamponade: Patient is 74-year-old male status post aortic valve replacement on 07/10/2020 presents with rapidly progressive symptoms of dyspnea orthopnea and positional chest pain x2 to 3 days. Symptoms were associated with intermittent atrial fibrillation however echocardiogram performed in acute evaluation demonstrates large circumferential pericardial effusion with hemodynamic effect/tamponade. Patient status post pericardiocentesis on 07/23 with 875cc fluid removal and drainage. Patient improved hemodynamically and catheter removed 07/24 symptom free mild persistent effusion remains present with significant organization. Clinically Mr. Nelson looks great. Okay to transfer to telemetry We will repeat limited echo in the a.m. to follow effusion Continue ibuprofen, colchicine, Protonix, Lasix and lisinopril. (2) S/P AVR (aortic valve replacement): Valve structure appears grossly normal in function no valvular insufficiency with limited Doppler performed (3) Paroxysmal atrial fibrillation: He is now predominantly in sinus rhythm with frequent supraventricular ectopy. We will hold off on treatment given resolution of effusion. (4) CKD (chronic kidney disease), stage III: (5) Pleural effusion, left: Will reassess once pericardial catheter removed Admission and Anticipated Discharge Date Admission Date: July 23, 2020 Subjective Patient seen and examined, chart reviewed. Out of bed in chair eating lunch. States that he feels great. Denies any chest pain, shortness of breath, palpitations, lightheadedness, dizziness or syncope. Telemetry reviewed: Normal sinus rhythm with frequent supraventricular ectopy Review of Systems Review of Systems: All systems reviewed & are unremarkable except as noted in HPI & below Physical Exam Physical Exam: General: Awake, alert and oriented x 3. No acute distress. HEENT: Normocephalic, atraumatic. Pupils equal, round and reactive to light and accommodation. Extraocular muscles are intact. Anicteric sclera. Moist mucous membranes. Neck: No JVD. No bruit. Cardiovascular: Regular. Positive S-4. Normal S-1 and S-2. No S-3. 3/6 mid to late systolic ejection murmur, greatest at the right sternal border, second intercostal space with radiation to the bilateral carotids. Ventricular systolic rub is present. Pulmonary: Clear to auscultation bilaterally. No rales, rhonchi, or wheezing. Abdomen: Bowel sounds x 4, soft. No rebound, guarding or tenderness. No organomegaly. Extremities: No clubbing, cyanosis or edema. +2 pedal pulses bilaterally. Skin: Warm and dry. Results & Data ([facility]) Vital Signs (Past 12 Hours) Vital Signs Temp Pulse Resp BP Pulse Ox 07/26/20 09:19 36.6 C 07/26/20 09:05 67 28 H 116/59 L 97 07/26/20 08:04 78 28 H 108/77 95 07/26/20 07:06 84 37 H 119/69 93 07/26/20 06:04 44 L 21 100/57 L 92 07/26/20 05:04 64 24 111/71 92 07/26/20 04:04 36.6 C 61 19 103/65 93 07/26/20 03:04 57 L 20 94/65 L 96 07/26/20 02:04 59 L 22 98/70 L 93 07/26/20 01:04 EST 62 21 101/65 93
[2020-07-27] MEDS: IBUPROFEN 600 MG TAB PO SCH ×2 (03:00→10:35)
[2020-07-27 06:54] LABS: BUN Creatinine Ratio 21.3 (10-20); Calcium 8.2 mg/dl (8.5-10.1); Creatinine Clr Calc Pharmacy 65.2 ml/min; Est GFR (African American) 76.8; Est GFR (Non-African American) 66.2; Magnesium 1.9 mg/dl (1.8-2.4); Potassium 3.9 mmol/L (3.5-5.1)
[2020-07-27 07:36] VITALS: O2SAT 95
[2020-07-27] MEDS: COLCHICINE 0.6 MG TAB PO SCH (08:24)
[2020-07-27] MEDS: MAGNESIUM OXIDE 400 MG TAB PO SCH (08:24)
[2020-07-27] MEDS: FLUTICASONE PROPIONATE NA SPR 16 GM BTL SCH (08:24)
[2020-07-27] MEDS: ASCORBIC ACID 500 MG TAB PO SCH (08:25)
[2020-07-27] MEDS: PRENATAL VITAMIN 1 TAB PO SCH (08:25)
[2020-07-27] MEDS: CALCIUM 600MG + VIT D 400 IU TAB PO SCH (08:25)
[2020-07-27] MEDS: PANTOprazole 40 MG TAB PO SCH (08:25)
[2020-07-27] MEDS: CHOLECALCIFEROL 1,000 UNITS 25 MCG TAB PO SCH (08:25)
[2020-07-27] MEDS: OMEGA-3 (PURIFIED FISH OIL) 1 GM CAP PO SCH (08:25)
[2020-07-27] MEDS: FUROSEMIDE 40 MG TAB PO SCH (08:25)
[2020-07-27] MEDS: lisinopril 5 MG TAB PO SCH (08:25)
[2020-07-27] MEDS: LATANOPROST 0.005% OP SOLN 2.5 ML BTL OPB SCH (08:26)
[2020-07-27] MEDS: DOCUSATE SODIUM 100 MG CAP PO SCH (08:30)
--- NOTE | 2020-07-27 09:14 | XRay Report ---
XR chest 1V portable HISTORY: Left pleural effusion. Follow-up. COMPARISON: Chest 07/25/2020. FINDINGS: The heart remains mildly enlarged. There are poststernotomy changes. Small bilateral pleura l effusions are again noted. This has slightly improved compared the prior study. No evidence for pul monary edema. The upper lung zones are clear. Hazy bibasilar densities persist. IMPRESSION: Slight improvement in the small bilateral pleural effusions. Hazy bibasilar densities persist. ACT 112: Negative or not required by law. Electronically signed by: eBn Hightower M.D. 07/27/2020 9:13 AM
[2020-07-27] MEDS ORDERED: APIXABAN 5 MG TABLET PO ONE (11:30)
[2020-07-27 11:52] VITALS: PULSE 62; TEMP 98.1
--- NOTE | 2020-07-27 12:41 | Hospitalist Progress Note ---
Date of Service July 27, 2020 Assessment & Plan (1) Pericardial effusion with cardiac tamponade: -This is a 74-year-old male who is significant past medical history of HTN, chronic HFpEF, prediabetes, CKD stage III, left adrenal mass, recent bioprosthetic aortic valve replacement who presents to ED on 07/23/2020 secondary to chest pain shortness of breath x1 day. Patient underwent urgent echocardiogram in ED which revealed large pericardial effusion with hemodynamic compromise and tamponade. He was sent for urgent pericardiocentesis with 875 mL extracted, performed by Dr. Tejeda, transferred to ICU for ongoing critical care. -07/24/2020: patient seen and examined by hospitalist while in the ICU. Patient continues to have the drain from the pericardiocentesis. Still draining output as per nurse. awaiting further evaluation by Dr. Tejeda when the drain can be removed. Patient otherwise comfortable, no acute distress. Breaths on nasal cannula 2 liter/s min. No subjective dyspnea. He denies acute pain anywhere and denies other symptoms. He reports that the bilateral lower extremity edema is chronic -pericardial fluid analysis benign, etiology of effusion likely secondary to recent aortic valve replacement (07/10/20), pericardial drain removed on 07/24/20 -on colchicine from 07/24/2020, cardiology also ordered Ibuprofen -echocardiogram on 07/25/2020 with appropriately functioning bioprosthetic valve, mild circumferential pericardical effusion -07/26/2020: Patient sitting up in chair breathing on room air. He reports that he ambulated well with physical therapy on 07/25/2020. Patient denies acute symptoms of any chest discomforts. No abdomen discomforts. No nausea. no vomiting. Able to eat the meals. denies other symptoms. transferred to telemetry peterson on 07/26/2020 from ICU -: repeat echocardiogram shows resolution of effusion with some stranding Discharge to Home as per cardiology Dr. Leblanc Discharge Medications sent electronically to [facility] pharmacy in [address] [facility], [place] [address] of colchicine 0.6 mg twice a day to prevent pericarditis of ibuprofren 600 mg every 8 hours as needed for pain from pericarditis of Eliquis 5 mg BID because of paroxysmal atrial fibrillation to prevent stroke risk of pantoprazole 40 mg twice a day to prevent gastrointestinal bleed or ulcers (no aspirin at this time while on Elquis and Ibuprofren) of lisinopril 5 mg daily for blood pressure of magnesium 400 mg twice a day x 10 days continue Lasix 40 mg daily as per Dr. Leblanc from cardiology follow up with primary care doctor for serum magnesium levels and blood counts and renal function Patient has appointment for 07/31/2020 12:00 PM Provider Lokesh Amin MD Department General Internal Medicine [facility] 08/05/2020 4:00 PM Provider Cottrell Blower 1 Gw Department Cardiac Studies, [facility] 08/10/2020 8:30 AM Provider Ancelmo Olvera MD Department Cardiology, [facility] 08/13/2020 1:15 PM Provider Ag Ballesteros MD Department Cardiothoracic Surg [facility] (2) Pleural effusion, left: - 07/23/2020 CXR 1. Cardiomegaly without radiographic evidence of congestive failure. 2. Left pleural effusion with left basilar consolidation. 3. Trace pleural effusion is also seen on the right - 07/26/2020 Bedside ultrasound by ICU doctor Left side of the chest: Small left-sided pleural effusion appreciated along with atelectatic left lung. Cardiac: Good ejection fraction, pericardial effusion appreciated. -on home dose Lasix 40 mg daily, continue (3) S/P AVR (aortic valve replacement): -status post aortic valve replacement on July 10, 2020 with [place]. Follow-ups include PCP Dr. Ewing upon discharge along with appropriate follow- up with valve clinic at [facility] Dr. Ballesteros (4) Paroxysmal atrial fibrillation: -diagnosed on EKG in outpatient clinic 07/22/2020 -(metoprolol recently discontinued during recent hospitalization at [facility], was given warfarin 5 mg on 07/23/2020) -further anticoagulation strategy is to be Eliquis 5 mg BID as started on 07/27/[address] Leblanc (5) Hypertension: -on lisinopril 5 mg daily, Lasix 40 mg daily (6) CKD (chronic kidney disease), stage III: -renal function stable (7) Pre-diabetes: -HbA1c 6.0 07/02/2020 (8) Esophageal reflux: -given pantoprazole 40 mg BID while in the hospital -pantoprazole BID on discharge (9) DVT prophylaxis: -SCDs when in the hospital Full Code Admission and Anticipated Discharge Date Admission Date: July 23, 2020 Subjective Patient is asymptomatic. Denies any chest pain. no shortness of breath. breathing on room air. denies palpitations. telemetry of rate controlled heart rate with some atrial fibrillation. no dizziness. no headache. Discharge as per cardiology. Discharge plans and instructions discussed at length with patient Review of Systems Review of Systems: All systems reviewed & are unremarkable except as noted in Subjective Physical Exam Constitutional: comfortable Eyes: PERRL, conjunctivae normal, anicteric sclerae EOM intact bilaterally ENMT: external ear and nose normal, oropharynx normal Neck: normal visual inspection Respiratory: normal respiratory effort Cardiovascular: Rate/Rhythm: regular rate Gastrointestinal (Abdomen): normal bowel sounds, soft, nontender, no hepatosplenomegaly Musculoskeletal: Head/Neck/Chest: normocephalic and head atraumatic Extremities: + lower extremity abnormal to inspection (bilateral lower extremity edema) Neurologic: PERRL, EOMI, accommodation nl, no face palsy, no dysarthria CN's II-XI intact bilaterally Psychiatric: A+Ox3, euthymic affect Results & Data Results & Data ([facility]) Vital Signs (Past 12 Hours) Vital Signs Temp Pulse Pulse Resp BP Pulse Ox 07/27/20 11:51 36.7 C 62 16 103/63 95 07/27/20 07:36 36.5 C 69 18 119/75 95 07/27/20 07:29 66 07/27/20 03:35 36.7 C 58 L 18 121/77 94
--- NOTE | 2020-07-27 12:42 | Discharge Summary ---
Date of Service July 27, 2020 Admission HPI Per Admitting Provider This is a 74-year-old male who is significant past medical history of HTN, chronic HFpEF, prediabetes, CKD stage III, left adrenal mass on recent bioprosthetic aortic valve replacement who presents to ED secondary to chest pain shortness of breath x1 day. 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 Ballesteros. His hospital course was complicated by prescribed AV block, postoperative anemia and urethral stricture requiring Mai catheter placement. This has since been removed. His medication changes on discharge included discontinuation of metoprolol succinate 12.5 mg daily, discontinuation of amlodipine, reduction in lisinopril dosing from 40 mg daily to 5 mg and the addition of potassium chloride 10 mEq daily. He was seen in clinic by cardiology yesterday, 07/22. He was seen by Fabian Mejia PA-C who discovered postoperative atrial fibrillation. He was placed on warfarin 5 mg daily and took 1 dose yesterday. Yesterday he developed chest pain and shortness of breath. Chest pain is constant, substernal, worse with lying down and improving with standing up. It is also made worse with coughing and deep breathing. He does complain of dry cough. He currently denies fever, chills, sweats, lightheadedness, dizziness, nausea, vomiting, abdominal pain. He does admit to abdominal pain yesterday but this was improved with a bowel movement. He denies any dysuria, increased urgency or frequency with urination or hematuria. He did have one-time episode of hematuria after catheter was removed but this is since resolved. Of significance prior to aortic valve replacement he did undergo coronary angiography by Dr. Olvera on 06/19/2020 which was unremarkable. In ED patient was seen evaluated by cardiology Dr. Olvera. He did undergo a bedside echo which revealed large pericardial effusion with compromised hemodynamics. Recommendation was patient to proceed to [employer] for pericardial window by welding lead burner Dr. Tejeda. He remained hemodynamically stable in ED. Lab work notable for leukocytosis 12.61k, H&H 12.7 and 30.0, platelet 544, BUN 22, creatinine 1.44, glucose 132. Preop Covid screen was negative. Principal Diagnosis Pericardial effusion with cardiac tamponade, pericardiocentesis left Pleural effusion status post aortic valve replacement (on July 10, 2020 with [facility]) Paroxysmal atrial fibrillation CKD (chronic kidney disease), stage III Discharge Exam Constitutional comfortable Eyes PERRL, conjunctivae normal, anicteric sclerae EOM intact bilaterally ENMT external ear and nose normal, oropharynx normal Neck normal visual inspection Respiratory normal respiratory effort Cardiovascular Rate/Rhythm: regular rate Gastrointestinal (Abdomen) normal bowel sounds, soft, nontender, no hepatosplenomegaly Musculoskeletal Head/Neck/Chest: normocephalic and head atraumatic Extremities: + lower extremity abnormal to inspection (bilateral lower extremity edema) Neurologic PERRL, EOMI, accommodation nl, no face palsy, no dysarthria CN's II-XI intact bilaterally Psychiatric A+Ox3, euthymic affect Discharge Data Allergies Allergy/AdvReac Type Severity Reaction Status Date / Time adhesive Allergy Mild RASH Verified 04/07/20 07:02 meperidine AdvReac Unknown HALLUCINATI Verified 04/07/20 07:02 ONS Consultations 07/23/20 17:04 Consult [employer]ian Blind Worker Routine 07/23/20 17:43 Consult Case Management - Discharge Planning Routine Procedures Performed Operation Date: 07/23/20 16:00 Actual Procedures p Pericardiocentesis Initial - Osmel Tejeda MD Ordered Studies 07/23/20 16:00 CL Cath Imgs for PACS use only Stat 07/26/20 07:28 US point of care ultrasound Urgent Hospital Course (1) Pericardial effusion with cardiac tamponade: -This is a 74-year-old male who is significant past medical history of HTN, chronic HFpEF, prediabetes, CKD stage III, left adrenal mass, recent bioprosthetic aortic valve replacement who presents to ED on 07/23/2020 secondary to chest pain shortness of breath x1 day. Patient underwent urgent echocardiogram in ED which revealed large pericardial effusion with hemodynamic compromise and tamponade. He was sent for urgent pericardiocentesis with 875 mL extracted, performed by Dr. Tejeda, transferred to ICU for ongoing critical care. -07/24/2020: patient seen and examined by hospitalist while in the ICU. Patient continues to have the drain from the pericardiocentesis. Still draining output as per nurse. awaiting further evaluation by Dr. Tejeda when the drain can be removed. Patient otherwise comfortable, no acute distress. Breaths on nasal cannula 2 liter/s min. No subjective dyspnea. He denies acute pain anywhere and denies other symptoms. He reports that the bilateral lower extremity edema is chronic -pericardial fluid analysis benign, etiology of effusion likely secondary to recent aortic valve replacement (07/10/20), pericardial drain removed on 07/24/20 -on colchicine from 07/24/2020, cardiology also ordered Ibuprofen -echocardiogram on 07/25/2020 with appropriately functioning bioprosthetic valve, mild circumferential pericardical effusion -07/26/2020: Patient sitting up in chair breathing on room air. He reports that he ambulated well with physical therapy on 07/25/2020. Patient denies acute symptoms of any chest discomforts. No abdomen discomforts. No nausea. no vomiting. Able to eat the meals. denies other symptoms. transferred to telemetry peterson on 07/26/2020 from ICU -: repeat echocardiogram shows resolution of effusion with some strand ing Discharge to Home as per cardiology Dr. Leblanc Discharge Medications sent electronically to [facility] pharmacy in [address] [place] [id number] of colchicine 0.6 mg twice a day to prevent pericarditis of ibuprofren 600 mg every 8 hours as needed for pain from pericarditis of Eliquis 5 mg BID because of paroxysmal atrial fibrillation to prevent stroke risk of pantoprazole 40 mg twice a day to prevent gastrointestinal bleed or ulcers (no aspirin at this time while on Elquis and Ibuprofren) of lisinopril 5 mg daily for blood pressure of magnesium 400 mg twice a day x 10 days continue Lasix 40 mg daily as per Dr. Leblanc from cardiology follow up with primary care doctor for serum magnesium levels and blood counts and renal function Patient has appointment for 07/31/2020 12:00 PM Provider Lokesh Aimn MD Department General Internal Medicine [facility] 08/05/2020 4:00 PM Provider Slumber Room Attendant 1 Gw Department Cardiac Studies, [facility] 08/10/2020 8:30 AM Provider Ancelmo Olvera MD Department Cardiology, [facility] 08/13/2020 1:15 PM Provider Ag Ballesteros MD Department Cardiothoracic Surg [facility] (2) Pleural effusion, left: - 07/23/2020 CXR 1. Cardiomegaly without radiographic evidence of congestive failure. 2. Left pleural effusion with left basilar consolidation. 3. Trace pleural effusion is also seen on the right - 07/26/2020 Bedside ultrasound by ICU doctor Left side of the chest: Small left-sided pleural effusion appreciated along with atelectatic left lung. Cardiac: Good ejection fraction, pericardial effusion appreciated. -on home dose Lasix 40 mg daily, continue (3) S/P AVR (aortic valve replacement): -status post aortic valve replacement on July 10, 2020 with [place]. Follow-ups include PCP Dr. Ewing upon discharge along with appropriate follow- up with valve clinic at [facility] Dr. Ballesteros (4) Paroxysmal atrial fibrillation: -diagnosed on EKG in outpatient clinic 07/22/2020 -(metoprolol recently discontinued during recent hospitalization at [place], was given warfarin 5 mg on 07/23/2020) -further anticoagulation strategy is to be Eliquis 5 mg BID as started on 07/27/[address] Leblanc (5) Hypertension: -on lisinopril 5 mg daily, Lasix 40 mg daily (6) CKD (chronic kidney disease), stage III: -renal function stable (7) Pre-diabetes: -HbA1c 6.0 07/02/2020 (8) Esophageal reflux: -given pantoprazole 40 mg BID while in the hospital -pantoprazole BID on discharge (9) DVT prophylaxis: -SCDs when in the hospital Full Code Total Time Total Time Spent Total Time Spent (In Minutes): 40 minutes Total Time Includes: Examination of the Patient, Discharge Planning, Medication Reconciliation and Communication With Other Providers Discharge Plan Discharge Items Patient Disposition: Home - Self-Care Reason For Visit: SOB CHEST PAIN Discharge Diagnosis: Pericardial effusion with cardiac tamponade, pericardiocentesis left Pleural effusion status post aortic valve replacement (on July 10, 2020 with [place]) Paroxysmal atrial fibrillation CKD (chronic kidney disease), stage III Condition on Discharge: Good Activity: Resume your previous activity Non-emergency contact: Primary Care Provider and Accounting Clerks Supervisor Call non-emergency contact if: you have any medication questions Follow-up/Referrals: Justen Ewing DO [Primary Care Provider] - (Date & Time 07/31/2020 12:00 PM Provider Lokesh Amin MD Department General Internal Medicine [facility] ) Diet: Heart Healthy Addtl Attending Provider Instructions: Discharge to Home Discharge Medications sent electronically to [facility] pharmacy in [address] [facility], [place] [address] of colchicine 0.6 mg twice a day to prevent pericarditis of ibuprofren 600 mg every 8 hours as needed for pain from pericarditis of Eliquis 5 mg BID because of paroxysmal atrial fibrillation to prevent stroke risk of pantoprazole 40 mg twice a day to prevent gastrointestinal bleed or ulcers (no aspirin at this time while on Elquis and Ibuprofren) of lisinopril 5 mg daily for blood pressure of magnesium 400 mg twice a day x 10 days continue Lasix 40 mg daily as per Dr. Leblanc from cardiology follow up with primary care doctor for serum magnesium levels and blood counts and renal function Patient has appointment for 07/31/2020 12:00 PM Provider Lokesh Amin MD Department General Internal Medicine [facility] 08/05/2020 4:00 PM Provider Slumber Room Attendant 1 Department Cardiac Studies, [facility] 08/10/2020 8:30 AM Provider Ancelmo Olvera MD Department Cardiology, [facility] 08/13/2020 1:15 PM Provider Ag Ballesteros MD Department Cardiothoracic Surg [facility] Pending Studies at Discharge: No Stand-Alone Forms: My [facility] Valuation App, Smoking Cessation Medications and DC Order Prescriptions: New lisinopril [Zestril] 5 mg Tablet 5 mg PO DAILY 30 Days Qty: 30 RF: 0 colchicine [Colcrys] 0.6 mg Tablet 0.6 mg PO BID 30 Days Qty: 60 RF: 0 Eliquis 5 mg Tablet 5 mg PO BID 30 Days Qty: 60 RF: 0 magnesium oxide 400 mg (241.3 mg magnesium) Tablet 400 mg PO BID 10 Days Qty: 20 RF: 0 pantoprazole 40 mg Tablet,Delayed Release (Dr/Ec) 40 mg PO BID 30 Days Qty: 60 RF: 0 ibuprofen 600 mg Tablet 600 mg PO Q8H PRN (Reason: Pain) 10 Days Qty: 30 RF: 0 Continued potassium chloride 10 mEq Tablet Extended Release 10 meq PO DAILY RF: 0 fluticasone propionate 50 mcg/actuation Given,Suspension 1 spray INTRANASAL BID RF: 0 oxycodone 5 mg Tablet 5 mg PO Q4H PRN (Reason: Pain) RF: 0 furosemide 40 mg Tablet 40 mg PO DAILY RF: 0 latanoprost 0.005 % Drops 1 drp OPB DAILY RF: 0 ascorbic acid (vitamin C) [Vitamin C] 500 mg Tablet 500 mg PO DAILY RF: 0 albuterol sulfate 90 mcg/actuation Hfa Aerosol Inhaler 2 puff INHALATION QID PRN (Reason: sob) RF: 0 cholecalciferol (vitamin D3) 25 mcg (1,000 unit) Capsule 25 mcg PO DAILY RF: 0 [place] 3 Fish Oil 684-1,200 mg Capsule,Delayed Release(Dr/Ec) 1 cap PO DAILY RF: 0 Vitamin 27 mg iron- 800 mcg tablet 1 tab PO DAILY RF: 0 amoxicillin 500 mg capsule 2,000 mg PO ONCE PRN (Reason: dental procedure) RF: 0 ginkgo biloba [Ginkoba] 40 mg Tablet 40 mg PO DAILY RF: 0 docusate sodium [Colace] 100 mg Capsule 100 mg PO DAILY RF: 0 calcium citrate-vitamin D3 [Calcium Citrate + D] 315 mg-5 mcg (200 unit) Tablet 1 tab PO DAILY RF: 0 Glucosamine Chondroitin 550-30-1 mg Capsule 1 cap PO TID RF: 0 Discontinued warfarin 5 mg Tablet 5 mg PO DAILY RF: 0 lisinopril 5 mg Tablet 5 mg PO DAILY RF: 0 aspirin [Aspir-81] 81 mg Tablet,Delayed Release (Dr/Ec) 81 mg PO Q2D RF: 0 omeprazole 20 mg Capsule,Delayed Release(Dr/Ec) 20 mg PO DAILY RF: 0 Discharge Orders: Discharge Order (Routine); Ordered 07/27/20 Ordered By: Jesus Iglesias Admission Data Admit Date/Time: 07/23/20 17:04 Attending Provider: Jesus Iglesias Admit Provider: Duane Tate Primary Care Provider: Justen Ewing Other Providers: [facility] ; Ed Costa
[2020-07-27 13:05] VITALS: BP 104/67
--- NOTE | 2020-07-27 13:05 | Cardiology Progress Note ---
Date of Service July 27, 2020 Assessment & Plan (1) Pericardial effusion with cardiac tamponade: Patient is 74-year-old male status post aortic valve replacement on 07/10/2020 presents with rapidly progressive symptoms of dyspnea orthopnea and positional chest pain x2 to 3 days. Symptoms were associated with intermittent atrial fibrillation however echocardiogram performed in acute evaluation demonstrates large circumferential pericardial effusion with hemodynamic effect/tamponade. Patient status post pericardiocentesis on 07/23 with 875cc fluid removal and drainage. Patient improved hemodynamically and catheter removed 07/24 symptom free mild persistent effusion remains present with significant organization. Clinically Mr. Nelson looks great. Repeat echocardiogram today shows further reduction of the pericardial effusion. In light of this along with the fact that he is clinically asymptomatic I believe would be prudent to discharge to home at this time. Patient instructed to contact us with any symptoms going forward. ER if severe. Continue ibuprofen, colchicine, Protonix, Lasix and lisinopril. Patient has follow-up appointment scheduled with Dr. Olvera on the , will keep this appointment. Repeat echo ordered for the and again we will continue with this. (2) S/P AVR (aortic valve replacement): Valve structure appears grossly normal in function no valvular insufficiency with limited Doppler performed (3) Paroxysmal atrial fibrillation: Patient now is in atrial fibrillation. Rate controlled. We will initiate Eliquis for stroke prophylaxis. Patient counseled on the potential for significant bleeding and is accepting of the risk. (4) CKD (chronic kidney disease), stage III: (5) Pleural effusion, left: Improving. We will continue oral diuretics as an outpatient. Admission and Anticipated Discharge Date Admission Date: July 23, 2020 Subjective Patient seen and examined, chart reviewed. Out of bed in chair eating lunch. States that he feels great. Denies any chest pain, shortness of breath, palpitations, lightheadedness, dizziness or syncope. Telemetry reviewed: Normal sinus rhythm with frequent supraventricular ectopy Physical Exam Physical Exam: General: Awake, alert and oriented x 3. No acute distress. HEENT: Normocephalic, atraumatic. Pupils equal, round and reactive to light and accommodation. Extraocular muscles are intact. Anicteric sclera. Moist mucous membranes. Neck: No JVD. No bruit. Cardiovascular: Regular. Positive S-4. Normal S-1 and S-2. No S-3. 3/6 mid to late systolic ejection murmur, greatest at the right sternal border, second intercostal space with radiation to the bilateral carotids. Ventricular systolic rub is present. Pulmonary: Clear to auscultation bilaterally. No rales, rhonchi, or wheezing. Abdomen: Bowel sounds x 4, soft. No rebound, guarding or tenderness. No organomegaly. Extremities: No clubbing, cyanosis or edema. +2 pedal pulses bilaterally. Skin: Warm and dry. Results & Data ([facility]) Vital Signs (Past 12 Hours) Vital Signs Temp Pulse Pulse Resp BP Pulse Ox 07/27/20 11:51 36.7 C 62 16 103/63 95 07/27/20 07:36 36.5 C 69 18 119/75 95 07/27/20 07:29 66 07/27/20 03:35 36.7 C 58 L 18 121/77 94
[2020-07-27] MEDS ORDERED: APIXABAN 5 MG TABLET PO SCH (21:00)
[2020-07-28 21:03] LABS: Pericardial Fld,Total Protein 4.7 g/dL
== END 2020-07-27 13:31 | disposition home health service (06) | DRG 315 ==
LOC: ED 13:41 → CC 15:53 → SUATTDRO 16:56 → 1E 16:56 → 2N 07-26 15:03

== ENCOUNTER 2020-08-10 07:35 | Inpatient (IN) ==
--- NOTE | 2020-08-10 08:24 | Emergency Department Note ---
History of Present Illness General Chief complaint: Chest Pain Stated complaint: CHEST DISCOMFORT, SOB Time Seen by Provider: 08/10/20 07:50 History of Present Illness Provider complaint: Chest pain shortness of breath Location: chest Radiation: non-radiation Severity: moderate Pain Consistency: + constant Maximum Pain Intensity: 2 Current Pain Intensity: 3 Quality: + aching Relieved By: + none Exacerbated By: + none Associated symptoms: + chest pain, + fever/chills and + shortness of breath 74-year-old male presents emergency department for chest pain or shortness of breath. Patient reports his symptoms began 2 days ago. He reports sharp pain when he tries to take a deep breath. He states his pain is similar to when he had fluid around his heart. Patient states he required a pericardial window done by Dr. Tejeda approximately 2 weeks ago. Patient states he was discharged from the hospital and then followed up with Dr. Olvera last week who did an echo and stated there is no fluid around his heart. Patient is on Eliquis and reports not missing any doses. No hemoptysis. Patient does report fever of 100.2 yesterday. No cough. Patient tested Covid negative while he was in the hospital previously. Home Medications Medication Instructions Recorded Confirmed Type Glucosamine Chondroitin 1 cap PO QAM 07/23/20 08/10/20 History Vitamin 1 tab PO QAM 07/23/20 08/10/20 History albuterol sulfate 2 puff INHALATION QID PRN 07/23/20 08/10/20 History ascorbic acid (vitamin C) [Vitamin 500 mg PO QAM 07/23/20 08/10/20 History C] calcium citrate-vitamin D3 1 tab PO QAM 07/23/20 08/10/20 History [Calcium Citrate + D] cholecalciferol (vitamin D3) 25 mcg PO QAM 07/23/20 08/10/20 History docusate sodium [Colace] 100 mg PO QAM 07/23/20 08/10/20 History fluticasone propionate 1 spray INTRANASAL BID 07/23/20 08/10/20 History furosemide 40 mg PO QAM 07/23/20 08/10/20 History ginkgo biloba 40 mg PO QAM 07/23/20 08/10/20 History latanoprost 1 drp OPB HS 07/23/20 08/10/20 History omega-3 fatty acids-fish oil 1 cap PO QAM 07/23/20 08/10/20 History oxycodone 5 mg PO Q4H PRN 07/23/20 08/10/20 History potassium chloride 10 meq PO QAM 07/23/20 08/10/20 History apixaban [Eliquis] 5 mg PO BID 30 Days #60 tab 07/27/20 08/10/20 Rx colchicine [Colcrys] 0.6 mg PO BID 30 Days #60 tab 07/27/20 08/10/20 Rx pantoprazole 40 mg PO BID 30 Days #60 tab 07/27/20 08/10/20 Rx lisinopril [Zestril] 5 mg PO QAM 08/10/20 08/10/20 History Allergies Allergy/AdvReac Type Severity Reaction Status Date / Time adhesive Allergy Mild RASH Verified 08/10/20 08:06 meperidine AdvReac Unknown HALLUCINATI Verified 08/10/20 08:06 ONS Past Med/Surg History Medical History Benign hypertrophy of prostate Breath shortness Chest pain CKD (chronic kidney disease), stage III GERD (gastroesophageal reflux disease) Hypertension Hypogonadism in male Pancreatitis history of Pre-diabetes Valvular heart disease aortic regurgitation. left ventricle thickening Surgical History H/O transurethral resection of prostate "Dr. Colt [place] 01/27/2015" H/O ventral hernia repair History of appendectomy History of cholecystectomy History of partial colectomy History of tonsillectomy History of tooth extraction all upper teeth removed History of total right hip arthroplasty "Dr. Barbosa 10/2013" Family History Father Diabetes Coronary heart disease COPD (chronic obstructive pulmonary disease) Social History Smoking Status: Former smoker Tobacco Type: Cigarettes Second Hand Exposure: No; Hx Alcohol Use: Yes Alcohol type: wine Hx Substance Use: No Preferred Language: Sudanese Communication Ability: Effective Refrigerator Crater Required: No Beliefs That Will Affect Care: None Current Living Situation: Alone Feels Safe at Home: Yes Assistive Devices: Glasses Review of Systems A total of 10 systems reviewed and were otherwise negative Physical Exam Vital Signs Vital Signs - 24 hr 08/10/20 07:39 08/10/20 07:50 08/10/20 07:55 Temperature 37.2 C Temperature Source Oral Pulse Rate 136 H 127 H 128 H Pulse Rate from SpO2 Sensor 127 H 126 H Respiratory Rate 40 H 32 H 38 H Respiratory Pattern Regular Blood Pressure 121/76 111/80 Blood Pressure Mean 91 91 Pulse Oximetry 97 94 94 Oxygen Delivery Method Room Air Sepsis Recent Fever Within 48 Hours No Sepsis New/Unexplained Change in Mental Status N/A Sepsis Action Taken by Nursing No Action Required 08/10/20 08:00 08/10/20 08:10 08/10/20 08:20 Temperature Temperature Source Pulse Rate 127 H 124 H 114 H Pulse Rate from SpO2 Sensor 126 H 124 H 120 H Respiratory Rate 35 H 37 H 35 H Respiratory Pattern Blood Pressure 130/90 Blood Pressure Mean 106 Pulse Oximetry 94 93 93 Oxygen Delivery Method Sepsis Recent Fever Within 48 Hours Sepsis New/Unexplained Change in Mental Status Sepsis Action Taken by Nursing 08/10/20 08:22 08/10/20 08:24 08/10/20 08:30 Temperature Temperature Source Oral Pulse Rate 121 H Pulse Rate from SpO2 Sensor 123 H Respiratory Rate 33 H Respiratory Pattern Blood Pressure 110/72 Blood Pressure Mean 78 Pulse Oximetry 94 Oxygen Delivery Method Room Air Room Air Sepsis Recent Fever Within 48 Hours Sepsis New/Unexplained Change in Mental Status Sepsis Action Taken by Nursing 08/10/20 08:40 08/10/20 08:50 08/10/20 09:00 Temperature Temperature Source Pulse Rate 119 H 110 H 117 H Pulse Rate from SpO2 Sensor 118 H 112 H 113 H Respiratory Rate 34 H 31 H 40 H Respiratory Pattern Blood Pressure 126/77 Blood Pressure Mean 96 Pulse Oximetry 93 94 94 Oxygen Delivery Method Sepsis Recent Fever Within 48 Hours Sepsis New/Unexplained Change in Mental Status Sepsis Action Taken by Nursing 08/10/20 09:10 08/10/20 09:20 08/10/20 09:30 Temperature Temperature Source Pulse Rate 117 H 116 H 120 H Pulse Rate from SpO2 Sensor 111 H 111 H 122 H Respiratory Rate 35 H 36 H 34 H Respiratory Pattern Blood Pressure 115/70 Blood Pressure Mean 95 Pulse Oximetry 93 93 91 Oxygen Delivery Method Sepsis Recent Fever Within 48 Hours Sepsis New/Unexplained Change in Mental Status Sepsis Action Taken by Nursing 08/10/20 09:40 08/10/20 09:50 08/10/20 10:00 Temperature Temperature Source Pulse Rate 108 H 110 H 105 H Pulse Rate from SpO2 Sensor 109 H 111 H Respiratory Rate 34 H 30 H 29 H Respiratory Pattern Blood Pressure 111/71 Blood Pressure Mean 84 Pulse Oximetry 93 93 Oxygen Delivery Method Sepsis Recent Fever Within 48 Hours Sepsis New/Unexplained Change in Mental Status Sepsis Action Taken by Nursing 08/10/20 10:10 08/10/20 10:20 08/10/20 10:30 Temperature Temperature Source Pulse Rate 100 H 112 H 115 H Pulse Rate from SpO2 Sensor 104 H 104 H Respiratory Rate 35 H 32 H 32 H Respiratory Pattern Blood Pressure 117/80 Blood Pressure Mean 96 Pulse Oximetry 92 93 Oxygen Delivery Method Sepsis Recent Fever Within 48 Hours Sepsis New/Unexplained Change in Mental Status Sepsis Action Taken by Nursing 08/10/20 10:40 08/10/20 10:50 08/10/20 11:00 Temperature Temperature Source Pulse Rate 93 H 96 H 112 H Pulse Rate from SpO2 Sensor 98 H 107 H 110 H Respiratory Rate 29 H 32 H 29 H Respiratory Pattern Blood Pressure 117/53 L Blood Pressure Mean 91 Pulse Oximetry 92 93 94 Oxygen Delivery Method Sepsis Recent Fever Within 48 Hours Sepsis New/Unexplained Change in Mental Status Sepsis Action Taken by Nursing 08/10/20 11:10 08/10/20 11:20 08/10/20 11:30 Temperature Temperature Source Pulse Rate 101 H 105 H 113 H Pulse Rate from SpO2 Sensor 105 H 100 H Respiratory Rate 30 H 31 H 24 Respiratory Pattern Blood Pressure 125/89 Blood Pressure Mean 95 Pulse Oximetry 93 93 Oxygen Delivery Method Sepsis Recent Fever Within 48 Hours Sepsis New/Unexplained Change in Mental Status Sepsis Action Taken by Nursing 08/10/20 11:40 08/10/20 11:50 08/10/20 12:00 Temperature Temperature Source Pulse Rate 101 H 98 H 94 H Pulse Rate from SpO2 Sensor 105 H 96 H Respiratory Rate 25 H 30 H 31 H Respiratory Pattern Blood Pressure Blood Pressure Mean Pulse Oximetry 94 97 Oxygen Delivery Method Sepsis Recent Fever Within 48 Hours Sepsis New/Unexplained Change in Mental Status Sepsis Action Taken by Nursing Physical Exam HENT: Exam performed. - Head: Normocephalic and atraumatic. - Right Ear: External ear normal. No mastoid tenderness. - Left Ear: External ear normal. No mastoid tenderness. - Mouth/Throat: The oropharynx is clear and moist. No trismus in the jaw. No dental abscesses or uvula swelling. No oropharyngeal exudate or tonsillar abscesses. EYES: Conjunctivae and EOM are normal. Pupils are equal, round, and reactive to light. Right eye exhibits no discharge. Left eye exhibits no discharge. No scleral icterus. NECK: Normal range of motion. Neck supple. No JVD present. No spinous process tenderness present. No carotid bruit present. No rigidity. No tracheal deviation and normal range of motion present. No Brudzinski's sign and no Kernig's sign noted. CV: Tachycardic rate, regular rhythm, normal heart sounds and intact distal pulses. There is no peripheral edema. Palpable radial pulses bue. PULM/CHEST: Tachypneic. Rhonchi bilaterally. - Chest Wall: He exhibits no tenderness. ABD: The abdomen is soft. Bowel sounds are normal. He has no distension. No mass is present. There is no tenderness. There is no rebound, no guarding, no Johnson 's sign and no tenderness at McBurney's point. Rovsig negative. MUSC/SKEL: Normal range of motion. There is no peripheral edema, tenderness or deformity. LYMPH: No cervical adenopathy. NEURO: He is alert and oriented to person, place, and time. He has normal strength. No cranial nerve deficit or sensory deficit. Coordination and gait normal. GCS eye subscore is 4. GCS verbal subscore is 5. GCS motor subscore is 6. Cerebellar tests wnl. SKIN: Skin is warm and dry. He is not diaphoretic. PSYCH: He has a normal mood and affect. Behavior is normal. Judgment and thought content normal. Procedures FAST Exam FAST Exam 1: Additional Comments: Bedside [id number] ultrasound showed pericardial effusion with no evidence of tamponade. Course Course 0750: The patient was evaluated in room A9. A complete history and physical exam was performed. Patient was seen in full airborne precautions by myself and s john. N95's, face shield, gowns, and gloves were wo EMR reviewed. Patient has a history of bioprosthetic aortic valve replacement done at [facility]. The patient had to have his aortic valve replaced due to aortic insufficiency. Patient has a history of anemia, urethral stricture, atrial fibrillation. Patient had a coronary angiography done by Dr. Olvera on June 19, 2020 which was unremarkable. Bedside echo was done on July 23 which showed a large pericardial effusion. Patient was taken to the [facility] by Dr. Tejeda and had a percutaneous pericardial drain inserted. Patient stated he had the drain removed after 1 day. Patient was discharged home. Patient had a repeat echo done on July 27 prior to discharge which showed a trivial pericardial effusion. Bedside ultrasound was performed by de which does show pericardial effusion that appears moderate. There does not appear to be any pericardial tamponade at this time. The patient is not in cardiogenic shock as his blood pressure is stable. Will contact cardiology Dr. Tejeda and discuss further. 0822: Discussed with Dr. Tejeda. He was able to review the patient's bedside ultrasound images which I was able to save and he does agree that there does appear to be pericardial effusion with no pericardial tamponade this time. He stated we should obtain formal echo and he will place the order for biological technician to come down and do the bedside ultrasound. 0837: EKG appears consistent with atrial fibrillation with RVR with a rate of 129. QRS 78. QTc 498. No ST elevation or ST depression. I did discuss the E KG with Dr. Tejeda and he agrees that it does appear to be A. fib with RVR. Patient's blood pressure is currently stable. I did discuss my hesitancy to give any rate lowering medication such as Cardizem or metoprolol as I did not want to throw the patient into a cardiogenic shock with his pericardial effusion and decrease in the patient's heart rate. Dr. Tejeda agrees with this decision and states Dr. Stephen should be down shortly to conduct echo and evaluate the patient. Cardiac monitoring: An order was placed for continuous cardiac monitoring. The monitor shows a rate of 120 with atrial fibrillation rhythm 0910: Dr. Stephen at bedside. Formal echo being conducted. Dr. Stephen states there is thrombus around apex no need emergent pericardiocentesis is indicated at this time. Patient reports his last eliquis was last night. X-ray shows a left-sided pleural effusion, there is concern that there might be a pneumonia underneath the effusion given the white count of 17.11. Patient will be treated with Vanco and cefepime. Magnesium 1.0. Patient will have magnesium replaced. Creatinine of 1.67. Dr. Stephen states he will discuss with the patient's surgeon in [place] to discuss if transfer is indicated or if we can manage patient's case here. Dr. Stephen also suggests Lasix 40 mg IV push. 1321: Spoke with Dr. Stephen who states he spoke with the patient's surgeon in [place] and they recommended the patient be admitted to the ICU here and the patient be treated for reactive pericarditis. Orders for anti-inflammatories placed by Dr. Stephen. [facility] ICU team has also been notified. Administered Medications Discontinued Medications Colchicine (Colchicine 0.6 Mg Tab) 0.6 mg PO NOW ONE Stop: 08/10/20 12:55 Last Admin: 08/10/20 13:05 Dose: 0.6 mg Documented by: [id number] Furosemide (Furosemide 40 Mg/4 Ml Vial) 40 mg IV NOW STA Stop: 08/10/20 09:10 Last Admin: 08/10/20 09:17 Dose: 40 mg Documented by: [id number] Cefepime HCl (Maxipime) 2,000 mg in 20 mls @ 5 mls/min IV NOW STA; Protocol Stop: 08/10/20 09:11 Last Admin: 08/10/20 09:17 Dose: 5 mls/min Documented by: [id number] Vancomycin HCl 1,750 mg/ (Sodium Chloride) 535 mls @ 200 mls/hr IV NOW ONE Stop: 08/10/20 11:48 Last Admin: 08/10/20 09:58 Dose: 200 mls/hr Documented by: [id number] Magnesium Sulfate/Dextrose (Magnesium Sulfate / D5w) 1 gm in 100 mls @ 100 mls/hr IV Q1H LUIS Stop: 08/10/20 11:09 Last Infusion: 08/10/20 11:22 Dose: 0 mls/hr Documented by: [id number] Admin: 08/10/20 10:22 Dose: 100 mls/hr Documented by: [id number] Infusion: 08/10/20 10:22 Dose: 0 mls/hr Documented by: [id number] Admin: 08/10/20 09:17 Dose: 100 mls/hr Documented by: [id number] Ioversol (Ioversol 100ml) 94 ml IV ONCE ONE Stop: 08/10/20 12:11 Last Admin: 08/10/20 12:11 Dose: 94 ml Documented by: [id number] Methylprednisolone (Methylprednisolone 125 Mg/2 Ml Vial) 60 mg IV NOW STA Stop: 08/10/20 12:54 Last Admin: 08/10/20 13:05 Dose: 60 mg Documented by: [id number] Critical Care Time Critical Care Time: Yes Total Critical Care Time: 127 I have personally spent greater than 127 minutes of critical care time in the direct management of this patient. This includes bedside care, interpretation of diagnostic studies, and testing, discussion with consultants, patient, and family members, and other required patient management activities. This 127 minutes is in excess of all separately billable procedures. Medical Decision Making Laboratory Data Result diagrams: 08/10/20 08:24 08/10/20 08:24 Lab Results 08/10/20 08/10/20 08/10/20 Range/Units 08:05 08:05 08:21 WBC (4.8-10.8) K/uL RBC (4.7-6.1) M/uL Hgb (14.0-18.0) g/dL POC Hgb 13.6 L (14.0-18.0) g/dl Hct (42-52) % POC Hct 40 L (42-52) % MCV (80-100) fL MCH (25-34) pg MCHC (32-36) g/dL RDW Std Deviation (36.4-46.3) fL RDW Coeff of Shruti (11.5-14.5) % Plt Count (130-400) K/uL MPV (7.4-10.4) fL Immature Gran % (Auto) % Neut % (Auto) % Lymph % (Auto) % [place] % (Auto) % Eos % (Auto) % Baso % (Auto) % Neut # (Auto) (1.4-6.5) K/uL Lymph # (Auto) (1.2-3.4) K/uL [place] # (Auto) (0.11-0.59) K/uL Eos # (Auto) (0-0.5) K/uL Baso # (Auto) (0-0.2) K/uL Immature Gran # (Auto) (0.00-0.02) K/uL ESR (0-14) mm/hr PT (9.0-12.0) Seconds INR (0.9-1.1) APTT (21.0-31.0) Seconds PTT Ratio VBG pH (7.36-7.41) VBG pCO2 (38-50) mmHg VBG pO2 mmHg VBG HCO3 mmol/L VBG O2 Saturation % VBG Base Excess mEq/L Barometric Pressure mm/Hg POC Sodium 132 L (135-144) mmol/L Sodium (136-145) mmol/L POC Potassium 3.9 (3.3-5.0) mmol/L Potassium (3.5-5.1) mmol/L POC Chloride 99 L (101-112) mmol/L Chloride (98-107) mmol/L Carbon Dioxide (21-32) mmol/L POC Total CO2 22 L (24-31) mmol/L Anion Gap (3-11) POC Anion Gap 16.0 (16-25) mmol/L POC BUN 24 H (7-18) mg/dl BUN (7-18) mg/dl Creatinine (0.6-1.4) mg/dl POC Creatinine 1.6 H (0.6-1.3) mg/dl Est Cr Clr Drug Dosing ml/min Est GFR ( Amer) Est GFR (Non-Af Amer) BUN/Creatinine Ratio (10-20) Glucose (70-99) mg/dl POC Glucose (other) 130 H (70-99) mg/dl Lactate (0.4-2.0) mmol/L Calcium (8.5-10.1) mg/dl POC Ioniz Calcium Samantha 1.09 L (1.12-1.32) mmol/l Magnesium (1.8-2.4) mg/dl Total Bilirubin (0.2-1) mg/dl AST (15-37) U/L ALT (12-78) U/L Alkaline Phosphatase (45-117) U/L Troponin I (0-0.045) ng/ml C-Reactive Protein (0-0.29) mg/dl NT-Pro-B Natriuret Pep (0-900) pg/ml Total Protein (6.4-8.2) gm/dl Albumin (3.4-5.0) gm/dl Globulin (2.5-4.0) gm/dl Albumin/Globulin Ratio (0.9-2) Procalcitonin (0-0.5) ng/ml COVID-19 Eval Order Covid19 [facility] SARS-CoV-2, RNA, NAAT NEGATIVE (NEGATIVE) 08/10/20 08/10/20 08/10/20 Range/Units 08:24 08:24 08:24 WBC 17.11 H (4.8-10.8) K/uL RBC 4.27 L (4.7-6.1) M/uL Hgb 12.7 L (14.0-18.0) g/dL POC Hgb (14.0-18.0) g/dl Hct 37.4 L (42-52) % POC Hct (42-52) % MCV 87.6 (80-100) fL MCH 29.7 (25-34) pg MCHC 34.0 (32-36) g/dL RDW Std Deviation 44.5 (36.4-46.3) fL RDW Coeff of Shruti 14.1 (11.5-14.5) % Plt Count 277 (130-400) K/uL MPV 10.3 (7.4-10.4) fL Immature Gran % (Auto) 0.2 % Neut % (Auto) 87.8 % Lymph % (Auto) 7.0 % [place] % (Auto) 5.0 % Eos % (Auto) 0.0 % Baso % (Auto) 0.0 % Neut # (Auto) 15.01 H (1.4-6.5) K/uL Lymph # (Auto) 1.20 (1.2-3.4) K/uL [place] # (Auto) 0.86 H (0.11-0.59) K/uL Eos # (Auto) 0.00 (0-0.5) K/uL Baso # (Auto) 0.00 (0-0.2) K/uL Immature Gran # (Auto) 0.04 H (0.00-0.02) K/uL ESR (0-14) mm/hr PT 15.3 H (9.0-12.0) Seconds INR 1.5 H (0.9-1.1) APTT 37.4 H (21.0-31.0) Seconds PTT Ratio 1.3 VBG pH (7.36-7.41) VBG pCO2 (38-50) mmHg VBG pO2 mmHg VBG HCO3 mmol/L VBG O2 Saturation % VBG Base Excess mEq/L Barometric Pressure mm/Hg POC Sodium (135-144) mmol/L Sodium 134 L (136-145) mmol/L POC Potassium (3.3-5.0) mmol/L Potassium 3.7 (3.5-5.1) mmol/L POC Chloride (101-112) mmol/L Chloride 102 (98-107) mmol/L Carbon Dioxide 23 (21-32) mmol/L POC Total CO2 (24-31) mmol/L Anion Gap 9.0 (3-11) POC Anion Gap (16-25) mmol/L POC BUN (7-18) mg/dl BUN 21 H (7-18) mg/dl Creatinine 1.67 H (0.6-1.4) mg/dl POC Creatinine (0.6-1.3) mg/dl Est Cr Clr Drug Dosing 42.4 ml/min Est GFR ( Amer) 46.3 Est GFR (Non-Af Amer) 40.0 BUN/Creatinine Ratio 12.8 (10-20) Glucose 126 H (70-99) mg/dl POC Glucose (other) (70-99) mg/dl Lactate (0.4-2.0) mmol/L Calcium 9.0 (8.5-10.1) mg/dl POC Ioniz Calcium Samantha (1.12-1.32) mmol/l Magnesium 1.0 L (1.8-2.4) mg/dl Total Bilirubin 2.1 H (0.2-1) mg/dl AST 18 (15-37) U/L ALT 28 (12-78) U/L Alkaline Phosphatase 99 (45-117) U/L Troponin I 0.031 (0-0.045) ng/ml C-Reactive Protein (0-0.29) mg/dl NT-Pro-B Natriuret Pep 1623 H (0-900) pg/ml Total Protein 7.1 (6.4-8.2) gm/dl Albumin 2.9 L (3.4-5.0) gm/dl Globulin 4.2 H (2.5-4.0) gm/dl Albumin/Globulin Ratio 0.7 L (0.9-2) Procalcitonin (0-0.5) ng/ml COVID-19 Eval Order SARS-CoV-2, RNA, NAAT (NEGATIVE) 08/10/20 08/10/20 08/10/20 Range/Units 08:24 08:24 08:24 WBC (4.8-10.8) K/uL RBC (4.7-6.1) M/uL Hgb (14.0-18.0) g/dL POC Hgb (14.0-18.0) g/dl Hct (42-52) % POC Hct (42-52) % MCV (80-100) fL MCH (25-34) pg MCHC (32-36) g/dL RDW Std Deviation (36.4-46.3) fL RDW Coeff of Shruti (11.5-14.5) % Plt Count (130-400) K/uL MPV (7.4-10.4) fL Immature Gran % (Auto) % Neut % (Auto) % Lymph % (Auto) % [place] % (Auto) % Eos % (Auto) % Baso % (Auto) % Neut # (Auto) (1.4-6.5) K/uL Lymph # (Auto) (1.2-3.4) K/uL [place] # (Auto) (0.11-0.59) K/uL Eos # (Auto) (0-0.5) K/uL Baso # (Auto) (0-0.2) K/uL Immature Gran # (Auto) (0.00-0.02) K/uL ESR (0-14) mm/hr PT (9.0-12.0) Seconds INR (0.9-1.1) APTT (21.0-31.0) Seconds PTT Ratio VBG pH 7.46 H (7.36-7.41) VBG pCO2 31 L (38-50) mmHg VBG pO2 49 mmHg VBG HCO3 22 mmol/L VBG O2 Saturation 85.0 % VBG Base Excess -1.1 mEq/L Barometric Pressure 730.9 mm/Hg POC Sodium (135-144) mmol/L Sodium (136-145) mmol/L POC Potassium (3.3-5.0) mmol/L Potassium (3.5-5.1) mmol/L POC Chloride (101-112) mmol/L Chloride (98-107) mmol/L Carbon Dioxide (21-32) mmol/L POC Total CO2 (24-31) mmol/L Anion Gap (3-11) POC Anion Gap (16-25) mmol/L POC BUN (7-18) mg/dl BUN (7-18) mg/dl Creatinine (0.6-1.4) mg/dl POC Creatinine (0.6-1.3) mg/dl Est Cr Clr Drug Dosing ml/min Est GFR ( Amer) Est GFR (Non-Af Amer) BUN/Creatinine Ratio (10-20) Glucose (70-99) mg/dl POC Glucose (other) (70-99) mg/dl Lactate 1.5 (0.4-2.0) mmol/L Calcium (8.5-10.1) mg/dl POC Ioniz Calcium Samantha (1.12-1.32) mmol/l Magnesium (1.8-2.4) mg/dl Total Bilirubin (0.2-1) mg/dl AST (15-37) U/L ALT (12-78) U/L Alkaline Phosphatase (45-117) U/L Troponin I (0-0.045) ng/ml C-Reactive Protein (0-0.29) mg/dl NT-Pro-B Natriuret Pep (0-900) pg/ml Total Protein (6.4-8.2) gm/dl Albumin (3.4-5.0) gm/dl Globulin (2.5-4.0) gm/dl Albumin/Globulin Ratio (0.9-2) Procalcitonin 0.20 (0-0.5) ng/ml COVID-19 Eval Order SARS-CoV-2, RNA, NAAT (NEGATIVE) 08/10/20 08/10/20 Range/Units 08:24 08:24 WBC (4.8-10.8) K/uL RBC (4.7-6.1) M/uL Hgb (14.0-18.0) g/dL POC Hgb (14.0-18.0) g/dl Hct (42-52) % POC Hct (42-52) % MCV (80-100) fL MCH (25-34) pg MCHC (32-36) g/dL RDW Std Deviation (36.4-46.3) fL RDW Coeff of Shruti (11.5-14.5) % Plt Count (130-400) K/uL MPV (7.4-10.4) fL Immature Gran % (Auto) % Neut % (Auto) % Lymph % (Auto) % [place] % (Auto) % Eos % (Auto) % Baso % (Auto) % Neut # (Auto) (1.4-6.5) K/uL Lymph # (Auto) (1.2-3.4) K/uL [place] # (Auto) (0.11-0.59) K/uL Eos # (Auto) (0-0.5) K/uL Baso # (Auto) (0-0.2) K/uL Immature Gran # (Auto) (0.00-0.02) K/uL ESR 49 H (0-14) mm/hr PT (9.0-12.0) Seconds INR (0.9-1.1) APTT (21.0-31.0) Seconds PTT Ratio VBG pH (7.36-7.41) VBG pCO2 (38-50) mmHg VBG pO2 mmHg VBG HCO3 mmol/L VBG O2 Saturation % VBG Base Excess mEq/L Barometric Pressure mm/Hg POC Sodium (135-144) mmol/L Sodium (136-145) mmol/L POC Potassium (3.3-5.0) mmol/L Potassium (3.5-5.1) mmol/L POC Chloride (101-112) mmol/L Chloride (98-107) mmol/L Carbon Dioxide (21-32) mmol/L POC Total CO2 (24-31) mmol/L Anion Gap (3-11) POC Anion Gap (16-25) mmol/L POC BUN (7-18) mg/dl BUN (7-18) mg/dl Creatinine (0.6-1.4) mg/dl POC Creatinine (0.6-1.3) mg/dl Est Cr Clr Drug Dosing ml/min Est GFR ( Amer) Est GFR (Non-Af Amer) BUN/Creatinine Ratio (10-20) Glucose (70-99) mg/dl POC Glucose (other) (70-99) mg/dl Lactate (0.4-2.0) mmol/L Calcium (8.5-10.1) mg/dl POC Ioniz Calcium Samantha (1.12-1.32) mmol/l Magnesium (1.8-2.4) mg/dl Total Bilirubin (0.2-1) mg/dl AST (15-37) U/L ALT (12-78) U/L Alkaline Phosphatase (45-117) U/L Troponin I (0-0.045) ng/ml C-Reactive Protein 20.40 H (0-0.29) mg/dl NT-Pro-B Natriuret Pep (0-900) pg/ml Total Protein (6.4-8.2) gm/dl Albumin (3.4-5.0) gm/dl Globulin (2.5-4.0) gm/dl Albumin/Globulin Ratio (0.9-2) Procalcitonin (0-0.5) ng/ml COVID-19 Eval Order SARS-CoV-2, RNA, NAAT (NEGATIVE) Imaging Data Radiologist's Impression: CT SCAN OF THE CHEST WITH IV CONTRAST CLINICAL HISTORY: Dyspnea. Pleural effusions. COMPARISON STUDY: Chest x-ray dated 08/10/2020. TECHNIQUE: Following the IV administration of 94 cc of Optiray 320, CT scan of the thorax was performed from the thoracic inlet to the upper abdomen. Images are reviewed in the axial, sagittal, and coronal planes. IV contrast was administered without complication. A dose lowering technique was utilized adhering to the principles of ALARA. CT DOSE: 631.78 mGycm FINDINGS: Thyroid: Imaged portions of the thyroid gland are normal in size and attenuation. Thoracic aorta: There is mild atherosclerotic calcification of the thoracic aorta, which is normal in caliber and demonstrates standard 3-vessel arch anatomy. No dissection is seen. Pulmonary vasculature: The pulmonary trunk is normal in caliber. There are no filling defects identified in the central pulmonary vessels to indicate pulmo nary embolus. Note that this examination was not protocoled for evaluation of the pulmonary arteries. Heart: The patient is status post midline sternotomy. The heart is enlarged noting a moderate and minimally complex pericardial effusion. There is mild pericardial thickening and enhancement. There is evidence of aortic valve surgery. There are coronary artery calcifications. Lungs and pleural spaces: Evaluation of the lung parenchyma is degraded by motion artifact. The trachea and central airways are clear. There is a small right pleural effusion with associated atelectasis. The right lung is otherwise clear. There is a small to moderate and at least partially loculated left pleural effusion with associated left basilar atelectasis. Loculated fluid tracks to the left apex and along the left major fissure. No airspace consolidation is seen typical for pneumonia. Mediastinum: Scattered subcentimeter mediastinal lymph nodes are not pathologically enlarged by size criteria. Andreina: Clear. Axillae: There is no axillary lymphadenopathy. Upper abdomen: There is a moderate hiatal hernia. Cholecystectomy clips are noted. There is a 2.2 cm indeterminate left adrenal nodule Skeletal structures: The skeletal structures are osteopenic. No lytic or blastic bony lesions are seen. IMPRESSION: 1. Cardiomegaly with evidence of previous aortic valve surgery. 2. There is a moderate and minimally complex pericardial effusion. 3. There is associated pericardial thickening and enhancement. Correlate clinically for evidence of pericarditis. 4. There is a small to moderate and at least partially loculated left pleural effusion. A small pleural effusion is also seen on the right. 5. Additional findings as above. ACT 112: Negative or not required by law. Electronically signed by: Young Moss M.D. 08/10/2020 12:23 PM Dictated: 08/10/20 1217 Transcribed: 08/10/20 1217 BILATERAL LOWER EXTREMITY VENOUS DOPPLER HISTORY: Acute pain and swelling of the lower extremities post open heart surgery,SOB,r/o DVT COMPARISON STUDY: None. FINDINGS: There is normal compressibility, flow, and augmentation within the bilateral lower extremity deep venous systems. IMPRESSION: No DVT within the right or left lower extremity. ACT 112: Negative or not required by law. Electronically signed by: Fernando Burch M.D. 08/10/2020 12:05 PM Dictated: 08/10/20 1205 Transcribed: 08/10/20 1205 XR chest 1V portable HISTORY: SEPSIS COMPARISON: Chest 07/27/2020. FINDINGS: No pneumothorax. The heart remains mildly enlarged. There are poststernotomy changes. Slight increase in size in the small to moderate left pleural effusion and right lung is clear. IMPRESSION: Increase in size in the small to moderate left pleural effusion. ACT 112: Negative or not required by law. Electronically signed by: Ben Hightower M.D. 08/10/2020 9:09 AM Dictated: 08/10/20 0856 Transcribed: 08/10/20 0856 ECG Data Indication: + chest pain Rate (beats per minute): 129 Rhythm: + atrial fibrillation ECG ST segments: + Normal ST segments Additional Comments: QRS 78 QTC 498 MDM Narrative 0750: The patient was evaluated in room A9. A complete history and physical exam was performed. Patient was seen in full airborne precautions by myself and staff. N95's, face shield, gowns, and gloves were wo EMR reviewed. Patient has a history of bioprosthetic aortic valve replacement done at [facility]. The patient had to have his aortic valve replaced due to aortic insufficiency. Patient has a history of anemia, urethral stricture, atrial fibrillation. Patient had a coronary angiography done by Dr. Olvera on June 19, 2020 which was unremarkable. Bedside echo was done on July 23 which showed a large pericardial effusion. Patient was taken to the [facility] by Dr. Tejeda and had a percutaneous pericardial drain inserted. Patient stated he had the drain removed after 1 day. Patient was discharged home. Patient had a repeat echo done on July 27 prior to discharge which showed a trivial pericardial effusion. Bedside ultrasound was performed by me which does show pericardial effusion that appears moderate. There does not appear to be any pericardial tamponade at this time. The patient is not in cardiogenic shock as his blood pressure is st able. Will contact cardiology Dr. Tejeda and discuss further. 0822: Discussed with Dr. Tejeda. He was able to review the patient's bedside ultrasound images which I was able to save and he does agree that there does appear to be pericardial effusion with no pericardial tamponade this time. He stated we should obtain formal echo and he will place the order for biological technician to come down and do the bedside ultrasound. 0837: EKG appears consistent with atrial fibrillation with RVR with a rate of 129. QRS 78. QTc 498. No ST elevation or ST depression. I did discuss the EKG with Dr. Tejeda and he agrees that it does appear to be A. fib with RVR. Patient's blood pressure is currently stable. I did discuss my hesitancy to give any rate lowering medication such as Cardizem or metoprolol as I did not want to throw the patient into a cardiogenic shock with his pericardial effusion and decrease in the patient's heart rate. Dr. Tejeda agrees with this decision and states Dr. Stephen should be down shortly to conduct echo and evaluate the patient. Cardiac monitoring: An order was placed for continuous cardiac monitoring. The monitor shows a rate of 120 with atrial fibrillation rhythm 0910: Dr. Stephen at bedside. Formal echo being conducted. Dr. Stephen states there is thrombus around apex no need emergent pericardiocentesis is indicated at this time. Patient reports his last eliquis was last night. X-ray shows a left-sided pleural effusion, there is concern that there might be a pneumonia underneath the effusion given the white count of 17.11. Patient will be treated with Vanco and cefepime. Magnesium 1.0. Patient will have magnesium replaced. Creatinine of 1.67. Dr. Stephen states he will discuss with the patient's surgeon in [place] to discuss if transfer is indicated or if we can manage patient's case here. Dr. Stephen also suggests Lasix 40 mg IV push. 1321: Spoke with Dr. Stephen who states he spoke with the patient's surgeon in [place] and they recommended the patient be admitted to the ICU here and the patient be treated for reactive pericarditis. Orders for anti-inflammatories placed by Dr. Stephen. [facility] ICU team has also been notified. Impression & Plan Pericarditis, Pleural effusion, Pneumonia, Atrial fibrillation with RVR Discharge Plan Visit Data Chief Complaint: Chest Pain Stated Complaint: CHEST DISCOMFORT, SOB ED Provider: Erlin Gaxiola Discharge Problem: Pericarditis, Pleural effusion, Pneumonia, Atrial fibrillation with RVR Patient Disposition: Admitted As Inpatient Forms Stand Alone Forms: [facility] Prescriptions Prescriptions: No Action potassium chloride 10 mEq Tablet Extended Release 10 meq PO QAM RF: 0 fluticasone propionate 50 mcg/actuation [place],Suspension 1 spray INTRANASAL BID RF: 0 oxycodone 5 mg Tablet 5 mg PO Q4H PRN (Reason: Pain) RF: 0 furosemide 40 mg Tablet 40 mg PO QAM RF: 0 latanoprost 0.005 % Drops 1 drp OPB HS RF: 0 ascorbic acid (vitamin C) [Vitamin C] 500 mg Tablet 500 mg PO QAM RF: 0 albuterol sulfate 90 mcg/actuation Hfa Aerosol Inhaler 2 puff INHALATION QID PRN (Reason: sob) RF: 0 cholecalciferol (vitamin D3) 25 mcg (1,000 unit) Capsule 25 mcg PO QAM RF: 0 omega-3 fatty acids-fish oil 684-1,200 mg Capsule,Delayed Release(Dr/Ec) 1 cap PO QAM RF: 0 Vitamin 27 mg iron- 800 mcg tablet 1 tab PO QAM RF: 0 ginkgo biloba 40 mg Tablet 40 mg PO QAM RF: 0 docusate sodium [Colace] 100 mg Capsule 100 mg PO QAM RF: 0 calcium citrate-vitamin D3 [Calcium Citrate + D] 315 mg-5 mcg (200 unit) Tablet 1 tab PO QAM RF: 0 Glucosamine Chondroitin 550-30-1 mg Capsule 1 cap PO QAM RF: 0 colchicine [Colcrys] 0.6 mg Tablet 0.6 mg PO BID 30 Days Qty: 60 RF: 0 Eliquis 5 mg Tablet 5 mg PO BID 30 Days Qty: 60 RF: 0 pantoprazole 40 mg Tablet,Delayed Release (Dr/Ec) 40 mg PO BID 30 Days Qty: 60 RF: 0 lisinopril [Zestril] 5 mg tablet 5 mg PO QAM RF: 0 Referrals Referrals: Justen Ewing DO [Primary Care Provider] - Discharge Problem: Pericarditis Qualifiers: Pericarditis type: unspecified type Chronicity: unspecified Qualified Code(s): I31.9 - Disease of pericardium, unspecified Pneumonia Qualifiers: Pneumonia type: due to unspecified organism Laterality: left Lung location: lower lobe of lung Qualified Code(s): J18.9 - Pneumonia, unspecified organism
[2020-08-10 08:42] LABS: Base Excess VBG -1.1 mEq/L; pH VBG 7.46 (7.36-7.41)
[2020-08-10 08:43] LABS: iSTAT Creatinine 1.6 mg/dl (0.6-1.3); iSTAT Hemoglobin 13.6 g/dl (14.0-18.0); iSTAT Ionized Calcium 1.09 mmol/l (1.12-1.32); iSTAT Potassium 3.9 mmol/L (3.3-5.0)
[2020-08-10 08:44] LABS: Hematocrit (blood only) 37.4 % (42-52); Hemoglobin 12.7 g/dL (14.0-18.0); Immature Granulocytes # (auto) 0.04 K/uL (0.00-0.02); Immature Granulocytes % (auto) 0.2 %; Mean Corpuscular Hemoglobin 29.7 pg (25-34); Mean Corpuscular Volume 87.6 fL (80-100); Mean Platelet Volume 10.3 fL (7.4-10.4); Monocytes # (auto) 0.86 K/uL (0.11-0.59); Neutrophils # (auto) 15.01 K/uL (1.4-6.5); Neutrophils % (auto) 87.8 %; Platelet Count 277 K/uL (130-400); RDW Coefficient of Variation 14.1 % (11.5-14.5); RDW Standard Deviation 44.5 fL (36.4-46.3); Red Blood Count 4.27 M/uL (4.7-6.1); White Blood Count 17.11 K/uL (4.8-10.8)
[2020-08-10 08:56] LABS: INR 1.5 (0.9-1.1); Partial Thromboplastin Ratio 1.3; Partial Thromboplastin Time 37.4 Seconds (21.0-31.0); Prothrombin Time 15.3 Seconds (9.0-12.0)
[2020-08-10 09:01] LABS: Albumin Level 2.9 gm/dl (3.4-5.0); BUN Creatinine Ratio 12.8 (10-20); Creatinine Clr Calc Pharmacy 42.4 ml/min; Est GFR (African American) 46.3; Potassium 3.7 mmol/L (3.5-5.1)
[2020-08-10 09:07] LABS: Albumin Globulin Ratio 0.7 (0.9-2); Bilirubin,Total 2.1 mg/dl (0.2-1); Globulin 4.2 gm/dl (2.5-4.0); Total Protein 7.1 gm/dl (6.4-8.2); Troponin I 0.031 ng/ml (0-0.045)
[2020-08-10] MEDS ORDERED: VANCOMYCIN CONSULT ACTIVE PRN (09:08)
[2020-08-10] MEDS ORDERED: VANCOMYCIN HCL 1,750 MG in SODIUM CHLORIDE 0.9% 500 ML IV ONE (09:08)
[2020-08-10] MEDS ORDERED: CEFEPIME 2,000 MG/20 ML VIAL IV STA (09:08)
[2020-08-10] MEDS ORDERED: FUROSEMIDE 40 MG/4 ML VIAL IV STA (09:09)
--- NOTE | 2020-08-10 09:11 | XRay Report ---
XR chest 1V portable HISTORY: SEPSIS COMPARISON: Chest 07/27/2020. FINDINGS: No pneumothorax. The heart remains mildly enlarged. There are poststernotomy changes. Sligh t increase in size in the small to moderate left pleural effusion and right lung is clear. IMPRESSION: Increase in size in the small to moderate left pleural effusion. ACT 112: Negative or not required by law. Electronically signed by: Ben Hightower M.D. 08/10/2020 9:09 AM
[2020-08-10] MEDS: MAGNESIUM SULFATE / D5W 1 GM/100 ML BAG IV SCH ×2 (09:17→10:22)
--- NOTE | 2020-08-10 10:02 | Pulmonary Consultation ---
Date of Consultation August 10, 2020 Assessment & Plan (1) Post-pericardiotomy syndrome: CT chest 08/10/2020 personally reviewed: Left-sided loculated pleural effusion appreciated with minimal atelectasis of the left lower lobe, minimal right-sided pleural effusion, pericardial effusion again appreciated, insignificant mediastinal lymphadenopathy EKG: Sinus tachycardia, no ST-T wave changes appreciated, normal axis, QTC 498 --Acute hypoxic respiratory failure With chest discomfort EKG does not show any signs of ST-T wave changes BNP 1623, troponin 0 0.031 Procalcitonin 0.2 ESR: 49, CRP 20.4 Continue with diuresis as tolerated Possibility of pneumonia is low. Patient likely has atelectasis of the left lower lobe. Continue with antibiotics. Follow-up nasal MRSA. Follow-up cardiolipin antibodies --Left-sided pleural effusion Increase in size compared to last admission Seems to be loculated Patient last dose of apixaban was night of 08/09/2020 Patient needs to be off apixaban for at least 48 hours before thoracentesis. Try to do thoracentesis on Monday. -- JESSICA on CKD Monitor BUN/creatinine Avoid nephrotoxic medications Strict ins and outs --Pericardial effusion Likely post cardiotomy syndrome Patient's pericardial fluid which was drained on 07/23/2020 is growing coagulase-negative staph, sensitive to Vanco and clindamycin, resistant to oxacillin Patient could have infected pericardial fluid causing the leukocytosis as well as the pleuritic chest pain Patient was Solu-Medrol in the ED. Currently on prednisone. The patient has infected pericardial fluid, pericardiaectomy might be a possibility Cardiology is on board. --A. fib On apixaban at home Rate controlled --Hypertension, diabetes type 2 Continue with blood pressure medication ICU hypoglycemic protocol --Prophylaxis VTE: Apixaban on hold GI: Lines: Peripheral Diet: Cardiorenal Plan: Follow cardiolipin antibodies Continue with O2 supplementation Continue with vancomycin Patient is on Lasix as well as lisinopril on a daily basis. Because of the JESSICA will hold the lisinopril for the time being. If blood pressure will be on the higher side will add amlodipine. Lasix dose to be decided based on creatinine tomorrow Please note the above document was generated using voice recognition software. It may contain grammatical, syntax or spelling errors.Any formal questions or concerns about the content, text or information contained within the body of this dictation should be directly addressed to the provider for clarification. (2) Pleural effusion: (3) Persistent atrial fibrillation: (4) Acute respiratory failure with hypoxia: History of Present Illness History of Present Illness 74-year-old male with past medical history of CKD, hypertension, GERD, BPH, A. fib on apixaban, recent aortic valve replacement done on 07/10/2020 at [facility] which was complicated by pericardial tamponade s/p pericardiocentesis done 07/23/2020 and was discharged on colchicine. He comes to the hospital because of complaints of shortness of breath which has been bibasilar the last couple of days worse when he is lying flat. He did have subjective fever and temperature of 99 F. Denies any cough. Denies any dizziness, no diaphoresis. Occasional palpitation. In the ED chest x-ray was done which showed left-sided pleural effusion. Patient also had a 2D echo done which showed again thickened pericardial effusion. At the time of examination patient had already gotten Lasix 40 mg. He was urinating well. He stated he felt better after coming to the hospital. He was saturating 93-94% on room air breathing in high teens. Dr. Cassidy consulted me given the left-sided pleural effusion to see if it is significant enough to be tapped and if that is the reason for his shortness of breath. Social history: Cigar and pipe smoker quit approximately 20 years ago denies any illicit drug use. Allergies Allergy/AdvReac Type Severity Reaction Status Date / Time adhesive Allergy Mild RASH Verified 08/10/20 08:06 meperidine AdvReac Unknown HALLUCINATI Verified 08/10/20 08:06 ONS Home Medications Medication Instructions Recorded Confirmed Type Glucosamine Chondroitin 1 cap PO QAM 07/23/20 08/10/20 History Vitamin 1 tab PO QAM 07/23/20 08/10/20 History albuterol sulfate 2 puff INHALATION QID PRN 07/23/20 08/10/20 History ascorbic acid (vitamin C) [Vitamin 500 mg PO QAM 07/23/20 08/10/20 History C] calcium citrate-vitamin D3 1 tab PO QAM 07/23/20 08/10/20 History [Calcium Citrate + D] cholecalciferol (vitamin D3) 25 mcg PO QAM 07/23/20 08/10/20 History docusate sodium [Colace] 100 mg PO QAM 07/23/20 08/10/20 History fluticasone propionate 1 spray INTRANASAL BID 07/23/20 08/10/20 History furosemide 40 mg PO QAM 07/23/20 08/10/20 History ginkgo biloba 40 mg PO QAM 07/23/20 08/10/20 History latanoprost 1 drp OPB HS 07/23/20 08/10/20 History omega-3 fatty acids-fish oil 1 cap PO QAM 07/23/20 08/10/20 History oxycodone 5 mg PO Q4H PRN 07/23/20 08/10/20 History potassium chloride 10 meq PO QAM 07/23/20 08/10/20 History apixaban [Eliquis] 5 mg PO BID 30 Days #60 tab 07/27/20 08/10/20 Rx colchicine [Colcrys] 0.6 mg PO BID 30 Days #60 tab 07/27/20 08/10/20 Rx pantoprazole 40 mg PO BID 30 Days #60 tab 07/27/20 08/10/20 Rx lisinopril [Zestril] 5 mg PO QAM 08/10/20 08/10/20 History Patient History Medical History (Updated 08/10/20 @ 16:09 by Charo Lozano MD) Benign hypertrophy of prostate Breath shortness Chest pain CKD (chronic kidney disease), stage III GERD (gastroesophageal reflux disease) Hypertension Hypogonadism in male Pancreatitis history of Pre-diabetes Valvular heart disease aortic regurgitation. left ventricle thickening Surgical History (Updated 08/10/20 @ 13:57 by Ynes Broderick PA-C) H/O transurethral resection of prostate "Dr. Colt North 01/27/2015" H/O ventral hernia repair History of aortic valve replacement bio prosthetic 07/10/20 History of appendectomy History of cholecystectomy History of partial colectomy History of tonsillectomy History of tooth extraction all upper teeth removed History of total right hip arthroplasty "Dr. Barbosa 10/2013" Family History Father Diabetes Coronary heart disease COPD (chronic obstructive pulmonary disease) Social History Smoking Status: Former smoker Tobacco Type: Cigarettes Second Hand Exposure: No; Do You Dip or Chew Tobacco: No; Tobacco Cessation Education Requested by Patient: No Hx Alcohol Use: Yes Alcohol type: wine Hx Substance Use: No Preferred Language: Congolese Communication Ability: Effective [employer] Operator Required: No Beliefs That Will Affect Care: None Current Living Situation: Alone Other Information That Helps Us Care for You: No Feels Safe at Home: No Is there a partner from a previous relationship who is making you feel unsafe now?: No Any Concerns about Your Family Situation: No Would You Like to Speak to Someone About Your Situation: No Safety Concerns: Feels Safe At This Time Assistive Devices: None Review of Systems Review of Systems: All systems reviewed & are unremarkable except as noted in HPI & below Physical Exam Physical Exam: Constitutional: No acute distress HEENT: EOMI, PERRLA Respiratory system: Decreased air entry bilaterally, no wheeze, no rhonchi, mild crackles left lower lobe CVS: S1-S2 positive, no murmurs or gallops, distant heart sounds Abdomen: Soft, nontender, nondistended, positive bowel sounds x4 Extremities: +2 pulses bilaterally radialis/ dorsalis pedis, no cyanosis, no edema Neuro: Awake alert oriented x3 Psych: Normal mood and affect G/U: No Mai Skin: no rashes, warm and dry Lymphatic: no cervical or axillary lymphadenopathy Results & Data Results & Data ([facility]) Vital Signs (Past 12 Hours) Vital Signs Temp Pulse Resp BP Pulse Ox 08/10/20 07:39 37.2 C 136 H 40 H 121/76 97 08/10/20 08:24 08/10/20 08:24 PG Care Time/CCT Total # of Minutes Spent Total Time Spent with Patient: Total time spent is greater than 50% in coordin ation of care (as documented) at patient's floor/unit and/or counseling patient: Coding Level of Care Code 87215 Initial Inpt Care Lvl 3 Diagnoses Post-pericardiotomy syndrome I97.0 Pleural effusion J90 Persistent atrial fibrillation I48.19 Acute respiratory failure with hypoxia J96.01
--- NOTE | 2020-08-10 10:19 | Cardiology Consultation ---
Date of Consultation August 10, 2020 Assessment & Plan (1) Dyspnea: Problems: Progressive dyspnea and orthopnea. 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 Recommendations: Stat bedside echo reveals a trace residual amount of pericardial fluid, not significant enough to account for the patient's symptoms. "There is localized thrombus adjacent to the right ventricular free wall specifically at the RV apex, think this is convincing for been consistent with constrictive physiology. Although the patient's creatinine is worse than baseline, would recommend proceeding with a trial of IV furosemide, 40 mg. Above he has reverted back to atrial fibrillation, and I think this is necessarily the cause of his symptoms. Recommend holding Eliquis. I have asked medicine to assess patient, perhaps a bedside ultrasound and clinically, for consideration of high risk thoracentesis as I believe that if pt is found to have a significant enough fluid collection this may provide abrupt symptomatic relief. Likelihood of a pulmonary embolism is low, as pt has been on Eliquis, however , this was interrupted during stay 2 weeks ago, and will obtain LE venous duplex. Will assess candidacy for beta jamila after patient received furosemide. At present , I feel he is to orthopneic to allow for noncontrast CT for better visualization of his lung allen, as this improves with furosemide, will reconsider. Case discussed with Dr Gaxiola in person and Dr Lozano by phone. Pt's son in room with him and updated him. History of Present Illness History of Present Illness Jhon Nelson is a 74 year old male seen in cardiology consultation in the emergency department per the request of Dr Gaxiola for the evaluation of shortness of breath. The patient describes 3 days of progressive shortness of breath and orthopnea. He describes subjective chills yesterday, and a temperature of 99 degrees at home yesterday. Denies any sick contacts or exposure to anyone with the novel virus. He had a COVID-19 test upon arrival to the emergency room this morning which was negative. He has not taken any of his educations as of yet this morning as well furosemide for his Eliquis. Most recent dose of Eliquis last evening. The patient's primary inseamer is Dr. Olvera of our practice. The patient undergone surgical prosthetic aortic valve replacement a month ago at [facility] 07/10/2020 just for 2 weeks ago presented with orthopnea and chest discomfort and was found to have a large circumferential effusion with tamponade physiology ultrasound-guided pericardiocentesis performed at [facility] by Dr Tejeda on 07/23/2020 liters of serosanguineous fluid. It was felt that the effusion was due to post pericardiotomy syndrome in the setting of recent surgery. Follow-up echo performed 07/27/20 reveal a trace residual amount fluid. His recent history is otherwise notable for postoperative paroxysmal atrial fibrillation noted after his surgical aortic valve procedure. EKG performed 07/23/2020 revealed atrial fibrillation with mildly ventricular rate 103 bpm. Per cardiology progress note specifically dated 07/26/2020, and been to be in sinus rhythm post cardiocentesis. Thus far in the emergency room, he has been found to be back in atrial fibrilla tion/atrial flutter with mildly elevated ventricular rates in the range of 110 to 119 bpm. A chest x-ray reveals a moderate left pleural effusion, which is increased to a slight degree in size compared to the previous chest x-ray from the previous admission. Stat bedside echocardiogram performed in the emergency department while I was at the bedside reveals a trivial degree of residual pericardial fluid with a focal pericardial thrombus noted localized at the level of the right ventricular apex without tamponade physiology and without definite echocardiographic evidence of constrictive physiology. The LVEF was hyperdynamic with ejection fraction greater than 70%. The right ventricular chamber size and systolic function were normal. Gradients across the aortic valve prosthesis were normal for this prosthesis. The inferior vena cava is small and collapses with inspiration. Allergies Allergy/AdvReac Type Severity Reaction Status Date / Time adhesive Allergy Mild RASH Verified 08/10/20 08:06 meperidine AdvReac Unknown HALLUCINATI Verified 08/10/20 08:06 ONS Home Medications Medication Instructions Recorded Confirmed Type Glucosamine Chondroitin 1 cap PO QAM 07/23/20 08/10/20 History Vitamin 1 tab PO QAM 07/23/20 08/10/20 History albuterol sulfate 2 puff INHALATION QID PRN 07/23/20 08/10/20 History ascorbic acid (vitamin C) [Vitamin 500 mg PO QAM 07/23/20 08/10/20 History C] calcium citrate-vitamin D3 1 tab PO QAM 07/23/20 08/10/20 History [Calcium Citrate + D] cholecalciferol (vitamin D3) 25 mcg PO QAM 07/23/20 08/10/20 History docusate sodium [Colace] 100 mg PO QAM 07/23/20 08/10/20 History fluticasone propionate 1 spray INTRANASAL BID 07/23/20 08/10/20 History furosemide 40 mg PO QAM 07/23/20 08/10/20 History ginkgo biloba 40 mg PO QAM 07/23/20 08/10/20 History latanoprost 1 drp OPB HS 07/23/20 08/10/20 History omega-3 fatty acids-fish oil 1 cap PO QAM 07/23/20 08/10/20 History oxycodone 5 mg PO Q4H PRN 07/23/20 08/10/20 History potassium chloride 10 meq PO QAM 07/23/20 08/10/20 History apixaban [Eliquis] 5 mg PO BID 30 Days #60 tab 07/27/20 08/10/20 Rx colchicine [Colcrys] 0.6 mg PO BID 30 Days #60 tab 07/27/20 08/10/20 Rx pantoprazole 40 mg PO BID 30 Days #60 tab 07/27/20 08/10/20 Rx lisinopril [Zestril] 5 mg PO QAM 08/10/20 08/10/20 History Patient History Medical History Benign hypertrophy of prostate Breath shortness Chest pain CKD (chronic kidney disease), stage III GERD (gastroesophageal reflux disease) Hypertension Hypogonadism in male Pancreatitis history of Pre-diabetes Valvular heart disease aortic regurgitation. left ventricle thickening Surgical History H/O transurethral resection of prostate "Dr. Colt [place] 01/27/2015" H/O ventral hernia repair History of appendectomy History of cholecystectomy History of partial colectomy History of tonsillectomy History of tooth extraction all upper teeth removed History of total right hip arthroplasty "Dr. 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 Beliefs That Will Affect Care: None Current Living Situation: Alone Feels Safe at Home: Yes Assistive Devices: Glasses Review of Systems Review of Systems: All systems reviewed & are unremarkable except as noted in HPI & below Physical Exam Physical Exam: Temp Pulse Resp BP Pulse Ox 37.2 C 136 H 40 H 121/76 97 08/10/20 07:39 08/10/20 07:39 08/10/20 07:39 08/10/20 07:39 08/10/20 07:39 Constitutional: Acutely ill in appearance Respiratory: Decreased breath sounds noted at the left base and midlung field no rales or rhonchi, no wheezing Cardiovascular: Rate/Rhythm: + tachycardic and + irregularly irregular Extremities: no edema Gastrointestinal (Abdomen): normal bowel sounds, soft, nontender, no hepatosplenomegaly Neurologic: PERRL, EOMI, accommodation nl, no face palsy, no dysarthria Results & Data ([facility]) Vital Signs (Past 12 Hours) Vital Signs Temp Pulse Resp BP Pulse Ox 08/10/20 07:39 37.2 C 136 H 40 H 121/76 97 Laboratory Results Cardiac Enzymes 08/10/20 Range/Units 08:24 AST 18 (15-37) U/L Troponin I 0.031 (0-0.045) ng/ml Coagulation 08/10/20 Range/Units 08:24 PT 15.3 H (9.0-12.0) Seconds APTT 37.4 H (21.0-31.0) Seconds CBC 08/10/20 Range/Units 08:24 WBC 17.11 H (4.8-10.8) K/uL RBC 4.27 L (4.7-6.1) M/uL Hgb 12.7 L (14.0-18.0) g/dL Hct 37.4 L (42-52) % Plt Count 277 (130-400) K/uL Neut # (Auto) 15.01 H (1.4-6.5) K/uL Lymph # (Auto) 1.20 (1.2-3.4) K/uL [place] # (Auto) 0.86 H (0.11-0.59) K/uL Eos # (Auto) 0.00 (0-0.5) K/uL Baso # (Auto) 0.00 (0-0.2) K/uL Comprehensive Metabolic Panel 08/10/20 Range/Units 08:24 Sodium 134 L (136-145) mmol/L Potassium 3.7 (3.5-5.1) mmol/L Chloride 102 (98-107) mmol/L Carbon Dioxide 23 (21-32) mmol/L BUN 21 H (7-18) mg/dl Creatinine 1.67 H (0.6-1.4) mg/dl Glucose 126 H (70-99) mg/dl Calcium 9.0 (8.5-10.1) mg/dl AST 18 (15-37) U/L ALT 28 (12-78) U/L Alkaline Phosphatase 99 (45-117) U/L Total Protein 7.1 (6.4-8.2) gm/dl Albumin 2.9 L (3.4-5.0) gm/dl Intake and Output 08/09/20 08/10/20 08/10/20 22:59 06:59 14:59 Intake Total 0 / 0 Balance 0 / 0 Intake: Oral 0 / 0 Other: Weight 87.6 kg Weight Measurement Method Chair Scale Patient Weight 08/11/20 06:59 Weight 87.6 kg Diagnostic Findings EKG performed today 08/10/2020 reveals atrial flutter and 129 beats per minute without ST changes.
--- NOTE | 2020-08-10 10:52 | Procedure Note ---
Procedure Note Date of Service August 10, 2020 Bedside Ultrasound: Lung: Left-sided pleural effusion appreciated, small. Minimal fibrinous material there. Atelectatic lung again appreciated (the fluid is little bit more compared to the last time when he was here. Atelectasis of the lung is still persistent.) Heart: Hyperdynamic, there is pericardial fluid appreciated, the echogenicity of the fluid seems to be viscous/thick. Interpretation: Patient does have small left-sided pleural effusion which has mildly increased compared to last visit. Atelectatic lung also appreciated layering around the fluid. I do not think the patient shortness of breath is all because of this pleural fluid. Patient took his apixaban last night. If the fluid is still persists on Monday which will be 48 hours after his last dose of apixaban. I will perform thoracentesis to see if he has any relief. Would recommend continuing with incentive spirometry flutter valve as well as Mucinex 1200 twice daily. Case was discussed with Dr. Stephen. Please note the above document was generated using voice recognition software. It may contain grammatical, syntax or spelling errors.Any formal questions or concerns about the content, text or information contained within the body of this dictation should be directly addressed to the provider for clarification. Coding CPT Codes Pulmonary/Thoracic - Pulmonary and Thoracic: 55928 US, Chest, real time with imaging documentation ([id number]) [facility] [place]) Pulmonary/Thoracic Procedure 1: Pulmonary and Thoracic: 96722 US, Chest, real time with imaging documentation
--- NOTE | 2020-08-10 12:07 | Ultrasound Report ---
BILATERAL LOWER EXTREMITY VENOUS DOPPLER HISTORY: Acute pain and swelling of the lower extremities post open heart surgery,SOB,r/o DVT COMPARISON STUDY: None. FINDINGS: There is normal compressibility, flow, and augmentation within the bilateral lower extremit y deep venous systems. IMPRESSION: No DVT within the right or left lower extremity. ACT 112: Negative or not required by law. Electronically signed by: Fernando Burch M.D. 08/10/2020 12:05 PM
[2020-08-10] MEDS ORDERED: IOVERSOL 100ml IV ONE (12:10)
--- NOTE | 2020-08-10 12:25 | CT Scan Report ---
CT SCAN OF THE CHEST WITH IV CONTRAST CLINICAL HISTORY: Dyspnea. Pleural effusions. COMPARISON STUDY: Chest x-ray dated 08/10/2020. TECHNIQUE: Following the IV administration of 94 cc of Optiray 320, CT scan of the thorax was perform ed from the thoracic inlet to the upper abdomen. Images are reviewed in the axial, sagittal, and ellie nal planes. IV contrast was administered without complication. A dose lowering technique was utilize d adhering to the principles of ALARA. CT DOSE: 631.78 mGycm FINDINGS: Thyroid: Imaged portions of the thyroid gland are normal in size and attenuation. Thoracic aorta: There is mild atherosclerotic calcification of the thoracic aorta, which is normal in caliber and demonstrates standard 3-vessel arch anatomy. No dissection is seen. Pulmonary vasculature: The pulmonary trunk is normal in caliber. There are no filling defects identif ied in the central pulmonary vessels to indicate pulmonary embolus. Note that this examination was no t protocoled for evaluation of the pulmonary arteries. Heart: The patient is status post midline sternotomy. The heart is enlarged noting a moderate and min imally complex pericardial effusion. There is mild pericardial thickening and enhancement. There is e vidence of aortic valve surgery. There are coronary artery calcifications. Lungs and pleural spaces: Evaluation of the lung parenchyma is degraded by motion artifact. The trach ea and central airways are clear. There is a small right pleural effusion with associated atelectasis . The right lung is otherwise clear. There is a small to moderate and at least partially loculated le ft pleural effusion with associated left basilar atelectasis. Loculated fluid tracks to the left apex and along the left major fissure. No airspace consolidation is seen typical for pneumonia. Mediastinum: Scattered subcentimeter mediastinal lymph nodes are not pathologically enlarged by size criteria. Andreina: Clear. Axillae: There is no axillary lymphadenopathy. Upper abdomen: There is a moderate hiatal hernia. Cholecystectomy clips are noted. There is a 2.2 cm indeterminate left adrenal nodule Skeletal structures: The skeletal structures are osteopenic. No lytic or blastic bony lesions are see n. IMPRESSION: 1. Cardiomegaly with evidence of previous aortic valve surgery. 2. There is a moderate and minimally complex pericardial effusion. 3. There is associated pericardial thickening and enhancement. Correlate clinically for evidence of p ericarditis. 4. There is a small to moderate and at least partially loculated left pleural effusion. A small pleur al effusion is also seen on the right. 5. Additional findings as above. ACT 112: Negative or not required by law. Electronically signed by: Young Moss M.D. 08/10/2020 12:23 PM
[2020-08-10] MEDS ORDERED: methylPREDNISolone 125 MG/2 ML VIAL IV STA (12:53)
[2020-08-10] MEDS ORDERED: COLCHICINE 0.6 MG TAB PO ONE (12:54)
[2020-08-10] MEDS ORDERED: ICU PROTOCOL FOR HYPERGLYCEMIA PRN (13:06)
--- NOTE | 2020-08-10 13:10 | Communication Note ---
Date of Service: August 10, 2020 Results reviewed: Lower extremity venous duplex was negative for DVT CT reveals moderate, complex pericardial effusion, slightly more impressive than what is noted on the echocardiogram. Small to moderate left pleural effusion with atelectasis. I had the echocardiogram images in the CT images performed today during her work-up to the [facility] and I reviewed his case by phone with Dr Ballesteros [place] [facility] [place] ago. Plan: Proceed with treatment for post pericardiotomy pericarditis. The patient had been discharged on 07/27/2020 on a course of colchicine. We will proceed with colchicine 0.6 mg x 1 now, and hold on further dosing based on his creatinine results tomorrow. He is not a candidate for nonsteroidal anti-inflammatory medications especially given his degree of renal insufficiency. I am hesitant to proceed with high-dose aspirin given potential for bleeding risks. We will therefore proceed with corticosteroids, Solu-Medrol, 60 mg IV x1, and oral prednisone starting tomorrow. Case discussed with Dr. Joya of the [facility]. Will admit pt to the ICU for close monitoring. Hold anticoagulation for now. Most recent dose of Eliquis was last evening, 08/09.
--- NOTE | 2020-08-10 13:16 | Electrocardiogram Report ---
Test Reason : Blood Pressure : / mmHG Vent. Rate : 129 BPM Atrial Rate : 073 BPM P-R Int : 000 ms QRS Dur : 078 ms QT Int : 340 ms P-R-T Axes : 000 021 066 degrees QTc Int : 498 ms Probable Sinus tachycardia Abnormal ECG When compared with ECG of 23-JUL-2020 13:49, Minimal criteria for Anterior infarct are no longer Present Confirmed by Steve Alejo ([id number]) on 08/10/2020 1:15:56 PM Referred By: REFERRED SELF Confirmed By:Steve Alejo
--- NOTE | 2020-08-10 14:10 | History & Physical Report ---
Date of Service August 10, 2020 Assessment & Plan (1) Dyspnea: (2) Post-pericardiotomy syndrome: (3) Pleural effusion, left: This is a 74-year-old male with significant past medical history of HTN, chronic HFpEF, prediabetes, CKD stage III, left adrenal mass and recent bioprosthetic aortic valve replacement who presents to ED secondary to shortness of breath x3 to 4 days. Pt admitted 07/23-07/27 10/27 to tamponade with emergent pericardiocentesis with evacuation of 875 mL serosanguineous fluid. Discharged home on 07/27 with Lasix 40 mg daily, Eliquis 5 mg twice daily, Protonix and magnesium supplement. Patient doing well until past 3 to 4 days exhibiting worsening shortness of nettie ath and pleuritic chest discomfort. Patient underwent imaging in ED which reveals bilateral pleural effusion, left greater than right with left being partially loculated. He did meet SIRS criteria secondary to leukocytosis, tachycardia and tachypnea. Echocardiogram and chest CT revealed pericardial effusion, but improved. Per cardiology images reviewed with cardiothoracic surgeon. Symptoms likely in setting of continued post pericardiotomy syndrome, failed colchicine treatment. Admit to ICU Received IV Solu-Medrol 6 mg in ED To start oral prednisone tomorrow Continue vancomycin, blood cultures pending Received 40 mg IV Lasix in ED Daily weights, strict I's and O's Defer further management to cardiology and software engineering associate manager (4) SIRS (systemic inflammatory response syndrome): Pt technically meets SIRS criteria per CMS guidelines with leukocytosis, tachycardia and tachypnea His lactic acid is WNL, pro-Josesito 0.20 Feel symptoms are likely in setting of post pericardiotomy syndrome and pericarditis and less likely infectious -although infectious not entirely ruled out Blood cultures are pending He received vancomycin and cefepime in ED Continue with vancomycin until infection ruled out Pericardial fluid culture from his recent admission grew coag negative staph (5) Acute worsening of stage 3 chronic kidney disease: Baseline creatinine 1.1 BUN/creatinine 21 and 1.65 Patient prescribed colchicine and Lasix at most recent discharge Monitor renal function closely (6) Hypomagnesemia: Mag 1.0 At discharge patient was prescribed 400 twice daily of Mag-Ox, he completed 10- day course Patient does admit to frequent diarrhea as outpatient after being prescribed Mag-Ox, C. difficile negative, has not had a BM in 2 days Likely in setting of loss from diarrhea Received 2 g magnesium in ED, repeat mag at 6 PM replete as necessary Start on Mag-Ox oral once daily (7) Persistent atrial fibrillation: On monitor patient is in A. fib with RVR, rates variable Eliquis on hold, last dose evening of 08/09 defer further rate control to cardiology, currently through my evaluation 80 to 90s (8) Hypertension: Blood pressure 108/82 On Lasix and lisinopril as outpatient Hold lisinopril, monitor (9) T2DM (type 2 diabetes mellitus): A1c 6.0 07/02/2020 ICU hyperglycemic protocol Diet control as outpatient (10) GERD (gastroesophageal reflux disease): continue PPI (11) DVT prophylaxis: SCDS/TEDS, eliquis on hold Disposition: Admit to ICU Follow up: PCP Dr. Ewing upon discharge, as well as appropriate cardiology and cardiothoracic surgery follow up Pt was seen and examined with son at bedside in collaboration with Dr. Joya, please see addenum History of Present Illness Chief Complaint: SOB x 3-4 days. Primary Care Provider: Justen Ewing, This is a 74-year-old male with significant past medical history of HTN, chronic HFpEF, prediabetes, CKD stage III, left adrenal mass and recent bioprosthetic aortic valve replacement who presents to ED secondary to shortness of breath x3 to 4 days. Of significance patient hospitalized 07/10-07/15 at [facility] secondary to aortic valve replacement due to nonrheumatic aortic insufficiency by Lesli. His hospital course at that time was complicated by AV block, postoperative anemia and urethral stricture requiring Mai catheter placement. This had since been removed. His medication changes on discharge included discontinuation of metoprolol succinate 12.5 mg daily, discontinuation of amlodipine, reduction in lisinopril dosing from 40 mg daily to 5 mg and the addition of potassium chloride 10 mEq daily. Patient was discharged home and unfortunately hospitalized at [facility] from 07/23-07/27 secondary to pericardial tamponade requiring emergent pericardiocentesis with evacuation of 875 mL pericardial fluid secondary to post pericardiotomy syndrome. He was admitted to ICU and treated appropriately with colchicine. He had drain removed on 07/24 and discharged home on 07/27 on Lasix 40 mg daily, colchicine, Eliquis and magnesium supplementation. He has been compliant with colchicine as well as Eliquis. Last dose last evening. He been doing well at discharge until approximately 3 to 4 days ago when shortness of breath return with exertion shortness of breath became more persistent occurring at rest as well as he was orthopneic. He was overall fatigued and decreased appetite and has been continuing to lose weight. He also admits to chills and night sweats. He denies any documented fever, lightheadedness, chest pain, nausea, vomiting, abdominal pain, dysuria, concerns or frequency of urination. He does complain of dry cough, dizziness which he attributes to multiple medications but denies syncope. He further complains of post discharge which has since resolved. He thought this was likely secondary to magnesium. Patient was seen and evaluated in ED by her cardiology team Dr. Cassidy as well as software engineering associate manager/pulmonary Dr. Lozano. He underwent echocardiogram, CT Chest which were reviewed by cardiology team as well as Dr. Ballesteros. Echocardiogram revealed 2 cm pericardial thrombus, EF 70%. CT revealed moderate pericardial effusion as well as bilateral pleural effusions left greater than right. Left side ultrasound done which revealed small left pleural effusion, but likely not the result of shortness of breath. Symptoms felt to be secondary to continued post pericardiotomy syndrome. He received oral dose of colchicine in ED as well as started on IV Solu-Medrol. He also received IV vancomycin and cefepime and blood cultures are pending. Pericardial fluid culture did grow coag negative staph. Allergies Allergy/AdvReac Type Severity Reaction Status Date / Time adhesive Allergy Mild RASH Verified 08/10/20 08:06 meperidine AdvReac Unknown HALLUCINATI Verified 08/10/20 08:06 ONS Home Medications Medication Instructions Recorded Confirmed Type Glucosamine Chondroitin 1 cap PO QAM 07/23/20 08/10/20 History Vitamin 1 tab PO QAM 07/23/20 08/10/20 History albuterol sulfate 2 puff INHALATION QID PRN 07/23/20 08/10/20 History ascorbic acid (vitamin C) [Vitamin 500 mg PO QAM 07/23/20 08/10/20 History C] calcium citrate-vitamin D3 1 tab PO QAM 07/23/20 08/10/20 History [Calcium Citrate + D] cholecalciferol (vitamin D3) 25 mcg PO QAM 07/23/20 08/10/20 History docusate sodium [Colace] 100 mg PO QAM 07/23/20 08/10/20 History fluticasone propionate 1 spray INTRANASAL BID 07/23/20 08/10/20 History furosemide 40 mg PO QAM 07/23/20 08/10/20 History ginkgo biloba 40 mg PO QAM 07/23/20 08/10/20 History latanoprost 1 drp OPB HS 07/23/20 08/10/20 History omega-3 fatty acids-fish oil 1 cap PO QAM 07/23/20 08/10/20 History oxycodone 5 mg PO Q4H PRN 07/23/20 08/10/20 History potassium chloride 10 meq PO QAM 07/23/20 08/10/20 History apixaban [Eliquis] 5 mg PO BID 30 Days #60 tab 07/27/20 08/10/20 Rx colchicine [Colcrys] 0.6 mg PO BID 30 Days #60 tab 07/27/20 08/10/20 Rx pantoprazole 40 mg PO BID 30 Days #60 tab 07/27/20 08/10/20 Rx lisinopril [Zestril] 5 mg PO QAM 08/10/20 08/10/20 History Past Med/Surg History Medical History (Updated 08/10/20 @ 16:09 by Charo Lozano MD) Benign hypertrophy of prostate Breath shortness Chest pain CKD (chronic kidney disease), stage III GERD (gastroesophageal reflux disease) Hypertension Hypogonadism in male Pancreatitis history of Pre-diabetes Valvular heart disease aortic regurgitation. left ventricle thickening Surgical History (Updated 08/10/20 @ 13:57 by Ynes Broderick PA-C) H/O transurethral resection of prostate "Dr. Colt North 01/27/2015" H/O ventral hernia repair History of aortic valve replacement bio prosthetic 07/10/20 History of appendectomy History of cholecystectomy History of partial colectomy History of tonsillectomy History of tooth extraction all upper teeth removed History of total right hip arthroplasty "Dr. Barbosa 10/2013" Family History Father Diabetes Coronary heart disease COPD (chronic obstructive pulmonary disease) Social History Smoking Status: Former smoker Tobacco Type: Cigarettes Second Hand Exposure: No; Do You Dip or Chew Tobacco: No; Tobacco Cessation Education Requested by Patient: No Hx Alcohol Use: Yes Alcohol type: wine Hx Substance Use: No Preferred Language: Belizean Communication Ability: Effective Team Assembler Required: No Beliefs That Will Affect Care: None Current Living Situation: Alone Other Information That Helps Us Care for You: No Feels Safe at Home: No Is there a partner from a previous relationship who is making you feel unsafe now?: No Any Concerns about Your Family Situation: No Would You Like to Speak to Someone About Your Situation: No Safety Concerns: Feels Safe At This Time Assistive Devices: None Review of Systems Review of Systems: All systems reviewed & are unremarkable except as noted in HPI & below Physical Exam Physical Exam: Constitutional: WD/WN, male, vitals as above, NAD, sitting up in bed, pleasant, conversing easily Head: Normocephalic, Atraumatic Eyes: PERRL, conjunctivae normal, anicteric sclerae ENMT: external ear and nose normal, oropharynx normal Neck: trachea midline, no thyromegaly normal visual inspection Respiratory: normal respiratory effort, lungs clear to auscultation, no wheeze, rales, rhonchi. Normal insp/exp effort, no accessory muscle use Cardiovascular: Irregular rate, irregular rhythm, no edema, no pretibial venous stasis changes noted vessels: no JVD or carotid bruit Chest: Sternal incision noted, left lateral chest wall drain insertion site well-healed, no erythema Abdomen: normal bowel sounds, soft, nontender, no hepatosplenomegaly Musculoskeletal: no cyanosis or clubbing, extremities motor strength 5/5 Skin: no rashes, warm and dry normal turgor Neurologic: PERRL, EOMI, accommodation nl, no face palsy, no dysarthria CN's II-XI intact bilaterally and moves all extremities Psychiatric: A+Ox3, euthymic affect Lymphatic: no cervical or axillary lymphadenopathy : deferred Results & Data Results & [facility] ([facility]) Vital Signs (Past 12 Hours) Vital Signs Temp Pulse Resp BP Pulse Ox 08/10/20 12:00 94 H 31 H 08/10/20 11:50 98 H 30 H 97 08/10/20 11:40 101 H 25 H 94 08/10/20 11:30 113 H 24 125/89 08/10/20 11:20 105 H 31 H 93 08/10/20 11:10 101 H 30 H 93 08/10/20 11:00 112 H 29 H 117/53 L 94 08/10/20 10:50 96 H 32 H 93 08/10/20 10:40 93 H 29 H 92 08/10/20 10:30 115 H 32 H 117/80 08/10/20 10:20 112 H 32 H 93 08/10/20 10:10 100 H 35 H 92 08/10/20 10:00 105 H 29 H 111/71 93 08/10/20 09:50 110 H 30 H 08/10/20 09:40 108 H 34 H 93 08/10/20 09:30 120 H 34 H 115/70 91 08/10/20 09:20 116 H 36 H 93 08/10/20 09:10 117 H 35 H 93 08/10/20 09:00 117 H 40 H 126/77 94 08/10/20 08:50 110 H 31 H 94 08/10/20 08:40 119 H 34 H 93 08/10/20 08:30 121 H 33 H 110/72 94 08/10/20 08:20 114 H 35 H 93 08/10/20 08:10 124 H 37 H 93 08/10/20 08:00 127 H 35 H 130/90 94 08/10/20 07:55 128 H 38 H 94 08/10/20 07:50 127 H 32 H 111/80 94 08/10/20 07:39 37.2 C 136 H 40 H 121/76 97 Laboratory Results Short CBC 08/10/20 Range/Units 08:24 WBC 17.11 H (4.8-10.8) K/uL Hgb 12.7 L (14.0-18.0) g/dL Hct 37.4 L (42-52) % Plt Count 277 (130-400) K/uL BMP 08/10/20 08:24 Sodium 134 L Potassium 3.7 Chloride 102 Carbon Dioxide 23 BUN 21 H Creatinine 1.67 H Glucose 126 H Calcium 9.0 Cardiac Enzymes 08/10/20 Range/Units 08:24 Troponin I 0.031 (0-0.045) ng/ml Liver Function 08/10/20 Range/Units 08:24 Total Bilirubin 2.1 H (0.2-1) mg/dl AST 18 (15-37) U/L ALT 28 (12-78) U/L Alkaline Phosphatase 99 (45-117) U/L Albumin 2.9 L (3.4-5.0) gm/dl Diagnostic Findings Chest CT: IMPRESSION: 1. Cardiomegaly with evidence of previous aortic valve surgery. 2. There is a moderate and minimally complex pericardial effusion. 3. There is associated pericardial thickening and enhancement. Correlate clinically for evidence of pericarditis. 4. There is a small to moderate and at least partially loculated left pleural effusion. A small pleural effusion is also seen on the right. 5. Additional findings as above. Venous Doppler: IMPRESSION: No DVT within the right or left lower extremity. IMPRESSION: Increase in size in the small to moderate left pleural effusion. Echocardiogram: EF 70%, ventricle hyperdynamic, trace residual pericardial effusion, focal pericardial thrombus of 2 cm maximum dimension adjacent to the apical right ventricle, no evidence of tamponade. Medications Administered Discontinued Medications Colchicine (Colchicine 0.6 Mg Tab) 0.6 mg PO NOW ONE Stop: 08/10/20 12:55 Last Admin: 08/10/20 13:05 Dose: 0.6 mg Documented by: [id number] Furosemide (Furosemide 40 Mg/4 Ml Vial) 40 mg IV NOW STA Stop: 08/10/20 09:10 Last Admin: 08/10/20 09:17 Dose: 40 mg Documented by: [id number] Cefepime HCl (Maxipime) 2,000 mg in 20 mls @ 5 mls/min IV NOW STA; Protocol Stop: 08/10/20 09:11 Last Admin: 08/10/20 09:17 Dose: 5 mls/min Documented by: [id number] Vancomycin HCl 1,750 mg/ (Sodium Chloride) 535 mls @ 200 mls/hr IV NOW ONE Stop: 08/10/20 11:48 Last Infusion: 08/10/20 14:02 Dose: 0 mls/hr Documented by: [id number] Admin: 08/10/20 09:58 Dose: 200 mls/hr Documented by: [id number] Magnesium Sulfate/Dextrose (Magnesium Sulfate / D5w) 1 gm in 100 mls @ 100 mls/hr IV Q1H LUIS Stop: 08/10/20 11:09 Last Infusion: 08/10/20 11:22 Dose: 0 mls/hr Documented by: [id number] Admin: 08/10/20 10:22 Dose: 100 mls/hr Documented by: [id number] Infusion: 08/10/20 10:22 Dose: 0 mls/hr Documented by: [id number] Admin: 08/10/20 09:17 Dose: 100 mls/hr Documented by: [id number] Ioversol (Ioversol 100ml) 94 ml IV ONCE ONE Stop: 08/10/20 12:11 Last Admin: 08/10/20 12:11 Dose: 94 ml Documented by: [id number] Methylprednisolone (Methylprednisolone 125 Mg/2 Ml Vial) 60 mg IV NOW STA Stop: 08/10/20 12:54 Last Admin: 08/10/20 13:05 Dose: 60 mg Documented by: [id number] ECG Rate (beats per minute): 129 Rhythm: atrial fibrillation Findings: + prolonged QT (498ms) Code Status & VTE Plan Code Status Full Code VTE Prophylaxis Plan VTE Prophylaxis will be ordered: Yes Reason for no VTE drug order: Contraindicated Supervising Physician Co-Signing Physician Notes Attending addendum: Patient seen and examined, care coordinated with Roselyn jorge PA-C This is a 74-year-old male with complex medical history underwent open heart surgery with bioprosthetic aortic valve replacement on 07/10/2020, Developed post surgical complication/post bradycardia cardiotomy syndrome/pericarditis. Status post pericardial window with pericardial effusion drainage 2 weeks back Presents to ER with complaint of worsening of shortness of breath for past 3 days, orthopnea, fatigue. No report of fever or chills Echo showed moderate organized pericardial effusion overall CT chest shows left- sided pleural effusion, patient evaluated by cardiology and pulmonology in ER. Patient will be admitted to ICU for close monitoring of hemodynamics, is given IV Solu-Medrol, continue with p.o. prednisone 30 mg daily On colchicine Vital signs: As per [facility] Physical exam: Focused General: Ill appearing, very anxious HEENT, anicteric sclera Cardio: Irregularly irregular, in A. fib, no lower extremity edema, no JVD Pulmonary, diminished breath sounds with bibasilar rales, no cough no wheeze Abdomen. Soft nontender Neuro, no focal deficit, Post pericardiotomy syndrome. Continue management as outlined by cardiology Plan of care discussed with patient's cardiothoracic surgeon in [place] by Dr. Stephen No indication for procedure: Pericardial window/pericardiectomy at this point: Pleural effusion is loculated, not amenable to thoracentesis, Given IV Lasix in the ER Acute renal failure on CKD stage III: Monitor BMP closely as patient received IV diuresis for pleural effusion shortness of breath/hypoxia Consider nephrology follow-up if renal function continues to worsen Recent pericardial fluid culture positive for coag negative staph: Continue with IV vancomycin, ordered for blood culture [facility] infectious disease consulted Please refer to further documentation by Ynes Garcia PA-C for discussion of other medical issues Ivelisse Joya MD
[2020-08-10] MEDS ORDERED: GLUCOSE 40% GEL 15 GM TUBE PO PRN (14:27)
[2020-08-10] MEDS ORDERED: GLUCAGON FOR INJ 1 MG VIAL SQ PRN (14:27)
[2020-08-10] MEDS ORDERED: DEXTROSE 50% 50 ML SYRINGE IV PRN (14:27)
[2020-08-10] MEDS ORDERED: GLUCOSE 10 TABS/TUBE PO PRN (14:27)
[2020-08-10] MEDS ORDERED: CARBOHYDRATES FOR HYPOGLYCEMIA PO PRN (14:27)
--- NOTE | 2020-08-10 16:32 | Pharmacy Report ---
Pharmacy Abx Dose Short Note - Date of Service August 10, 2020 - Assessment & Plan Assessment 74 year old M receiving vancomycin for treatment of post pericardiotomy pericarditis Day # 1 of antimicrobial therapy. Plan Vancomycin * vancomycin loading dose of 1750 mg IV (20 mg/kg) given in ED. * Patient does have JESSICA currently (creatinine is 1.67 mg/dL vs 1.1 mg/dL) --- expect to resolve tomorrow. * current pharmacokinetics suggest half -life of 17 hours with elimination constant of 0.04 hr-1 (with baseline kidney function half-life of 14 hours with elimination constant of 0.05 hr-1). * Will utilize vancomycin 1 gm IV q 12 hours with first dose tonight. This is 11 mg/kg. It will allow random to be obtained tomorrow if kidney function worsens but will also provide therapeutic levels. * Order trough based upon kidney function. Pharmacy will continue to follow and will adjust dose/frequency as necessary. Thank you.
[2020-08-10] MEDS: PANTOprazole 40 MG TAB PO SCH (18:30)
[2020-08-10] MEDS ORDERED: VANCOMYCIN HCL 1,000 MG in SODIUM CHLORIDE 0.9% 250 ML IV SCH (21:00)
[2020-08-10] MEDS: LATANOPROST 0.005% OP SOLN 2.5 ML BTL OPB SCH (22:04)
[2020-08-11 04:59] LABS: Hematocrit (blood only) 35.3 % (42-52); Hemoglobin 11.7 g/dL (14.0-18.0); Immature Granulocytes # (auto) 0.02 K/uL (0.00-0.02); Immature Granulocytes % (auto) 0.2 %; Lymphocytes # (auto) 0.47 K/uL (1.2-3.4); Lymphocytes % (auto) 5.3 %; Mean Corpuscular Hemoglobin 29.3 pg (25-34); Mean Corpuscular Hgb Conc 33.1 g/dL (32-36); Mean Corpuscular Volume 88.3 fL (80-100); Monocytes # (auto) 0.46 K/uL (0.11-0.59); Monocytes % (auto) 5.2 %; Neutrophils # (auto) 7.95 K/uL (1.4-6.5); Neutrophils % (auto) 89.3 %; Platelet Count 220 K/uL (130-400); RDW Standard Deviation 45.9 fL (36.4-46.3)
[2020-08-11 05:42] LABS: BUN Creatinine Ratio 19.3 (10-20); Calcium 9.1 mg/dl (8.5-10.1); Creatinine Clr Calc Pharmacy 60.5 ml/min; Est GFR (African American) 71.3; Est GFR (Non-African American) 61.5; Magnesium 1.9 mg/dl (1.8-2.4); Phosphorus 3.7 mg/dl (2.5-4.9); Potassium 4.3 mmol/L (3.5-5.1)
[2020-08-11] MEDS ORDERED: MAGNESIUM SULFATE / D5W 1 GM/100 ML BAG IV ONE (07:30)
[2020-08-11] MEDS: VANCOMYCIN HCL 1,250 MG in SODIUM CHLORIDE 0.9% 250 ML IV SCH ×2 (08:10→20:58)
[2020-08-11] MEDS: PANTOprazole 40 MG TAB PO SCH (08:10)
[2020-08-11] MEDS: MULTIVITAMIN TAB PO SCH (08:10)
[2020-08-11] MEDS: predniSONE 10 MG TABLET PO SCH (08:29)
[2020-08-11] MEDS: COLCHICINE 0.6 MG TAB PO SCH ×2 (09:12→20:59)
--- NOTE | 2020-08-11 10:23 | Hospitalist Progress Note ---
Date of Service August 11, 2020 Assessment & Plan (1) Dyspnea: -as per the 08/10/2020 admission note that "This is a 74-year-old male with significant medical history of HTN, chronic HFpEF, prediabetes, CKD stage III, left adrenal mass and recent bioprosthetic aortic valve replacement who presents to ED secondary to shortness of breath x 3 to 4 days." -Patient underwent imaging in ED which reveals bilateral pleural effusion, left greater than right with left being partially loculated. (2) Pleural effusion, left: -as per admitting hospitalist team that patient met SIRS criteria secondary to leukocytosis, tachycardia and tachypnea. Echocardiogram and chest CT revealed pericardial effusion, but improved. -initially admitted to ICU from the ED, Received IV Solu-Medrol 6 mg in ED, Received 40 mg IV Lasix in ED, started on antibiotics -patient started on prednisone on 08/11/2020 -continuing on empiric antibiotics of cefepime and Vanocomycin -possible thoracentesis by pulmonary/ICU physician Dr. Lozano on 08/12/2020 (at which time patient would be off Eliquis for enough time - patient reports last dose of Eliquis on Monday08/09/2020) (3) Post-pericardiotomy syndrome: Presence of Bioprosthetic Aortic Valve -previous history of aortic valve replacement with [facility] in [place] and then subsequent hospitalization at [facility] from 07/23/2020 to 07/27/2020 hospitalization for complication of cardiac tamponade with emergent pericardiocentesis and evacuation of 875 mL serosanguineous fluid -patient was treated symptomatically with colchicine. he reports denies use of ibuprofen which was prescribed as prn if chest discomforts not alleviated by colchicine because he generally did not have acute chest pains -oral prednisone and colchicine -follow the recommendations of ICU/pulmonary physician and cardiology physician (4) SIRS (systemic inflammatory response syndrome): -Pericardial fluid culture from his recent admission grew coag negative staph -currently on IV antibiotics until any underlying infectious causes for the initial SIRs criteria can be ruled out -follow the recommendations of ICU/pulmonary physician and cardiology physician (5) Acute worsening of stage 3 chronic kidney disease: -Baseline creatinine 1.1, admission BUN/creatinine 21 and 1.65 -creatinine 1.17 by 08/11/2020 -monitor the renal function (6) Hypomagnesemia: -low serum magnesium of 1.0 on this hospital admission presentation, Received 2 g magnesium in ED -continue scheduled oral magnesium supplements -serum magnesium of 1.9 on 08/11/2020 -replete as needed to target a level close to 2 (7) Persistent atrial fibrillation: -currently the Eliquis is held, can be resume in future when allowed by pulmonary/ICU physician (8) Hypertension: -blood pressure has been low normotensive -defer to cardiology service on how to resume diuretics or ZAKIA inhibitor (9) T2DM (type 2 diabetes mellitus): -HbA1c 6.0 07/02/2020, was placed on ICU hyperglycemic protocol -diabetes mellitus generally under control and likely will not require much sliding scale insulin -monitor blood sugars while on prednisone (10) GERD (gastroesophageal reflux disease): -continue PPI (11) DVT prophylaxis: -continue SCDS/TEDS as eliquis on hold will defer to ICU physician of when patient can be transferred to telemetry [place] but he appears to be reasonably stable at this time to be out of ICU Admission and Anticipated Discharge Date Admission Date: August 10, 2020 Subjective Patient seen and examined in the ICU. patient breathing on room air. No acute distress. No chest pain currently - patient says in recent past that maybe there is mild chest discomfort only with big deep breaths.. No abdomen pain. No nausea. No vomiting. No dizziness. movies all extremities. no other symptoms on review of systems Review of Systems Review of Systems: All systems reviewed & are unremarkable except as noted in Subjective Physical Exam Constitutional: cooperative and comfortable Eyes: PERRL, conjunctivae normal, anicteric sclerae EOM intact bilaterally ENMT: external ear and nose normal, oropharynx normal Neck: normal visual inspection Respiratory: normal respiratory effort Cardiovascular: Rate/Rhythm: regular rate Gastrointestinal (Abdomen): normal bowel sounds, soft, nontender, no hepatosplenomegaly Musculoskeletal: Head/Neck/Chest: normocephalic and head atraumatic Neurologic: PERRL, EOMI, accommodation nl, no face palsy, no dysarthria CN's II-XI intact bilaterally and moves all extremities Psychiatric: A+Ox3, euthymic affect Results & Data Results & Data ([facility]) Vital Signs (Past 12 Hours) Vital Signs Temp Pulse Resp BP Pulse Ox 08/11/20 09:18 80 16 101/57 L 95 08/11/20 08:18 36.8 C 86 20 110/89 93 08/11/20 07:18 74 18 111/69 92 08/11/20 07:00 36.6 C 62 14 95
[2020-08-11] MEDS ORDERED: Heparin IV Low Dose *NO* Bolus IV SCH (11:13)
[2020-08-11] MEDS ORDERED: HEPARIN SODIUM/DEXTROSE 25,000 UNITS/500 ML BAG IV SCH (11:15)
--- NOTE | 2020-08-11 11:26 | Cardiology Progress Note ---
Date of Service August 11, 2020 Assessment & Plan (1) Post-pericardiotomy syndrome: Mr. Nelson is a 74-year-old man who is postop having undergone bioprosthetic surgical aortic valve replacement a month ago on 08/10/2020 due to symptomatic severe aortic valve regurgitation. Preoperative coronary angiography revealed right dominant system without significant coronary heart disease. He had presented with chest pain and shortness of breath with findings of large circumferential pericardial effusion prompting emergent pericardiocentesis on 07/23/2020 yielding 875 mL of serosanguineous fluid. He was discharged on 07/27/2020 colchicine 0.6 mg twice daily. The patient presented to the emergency room on 08/10/2020 with 3 days of progressive dyspnea and orthopnea. He has been found to have a small residual circumferential pericardial effusion, with noted organized/thrombus component also. 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 Inflammatory markers performed 08/10/2020 were mildly elevated with C-reactive protein level of 20.4, erythrocyte sedimentation level 49 mm/h. Patient had a subjective fever prior to hospital stay, and night sweats overnight last night. Teen screen has been negative. Patient's pericardial fluid culture obtained 07/23/2020 did grow coag negative Staphylococcus. Therapeutics: Continue colchicine which has been initiated at its prior dose of 0.6 mg twice daily. Patient received Solu-Medrol 60 mg IV x1 on 08/10, and has received prednisone 30 mg today. Continue cautious diuretic therapy. Creatinine was 1.6 yesterday, and is down to 1.1 today. I had intended to proceed with a noncontrast CT yesterday, however a contrast- enhanced CT performed, fortunately however his renal function has improved despite receiving contrast, contrast images were clinically helpful. Pulmonary medicine input noted and appreciated, for left thoracentesis 08/12/20 after he has been off of Eliquis x 48 hours. Continue vancomycin, await cultures. COVID-19 screen negative. (2) Persistent atrial fibrillation: Patient with h/o relative bradycardia off of AV tomás blockers. Rate well controlled compared to admission off of AV tomás blockers. Eliquis on hold pending thoracentesis. Start low dose UF heparin without bolus, plan to hold am of 08/12/20 at 6 am for thoracentesis. On protonix for GI prophylaxis. (3) Hypomagnesemia: Mg improved. I attempted to reach pt's former , Aurea, with an update, but unable to connect with her . I left her a brief voicemail message and will attempt to reach again later. Pt stable from my perspective for transfer from ICU to PCU. Admission and Anticipated Discharge Date Admission Date: August 10, 2020 Subjective Patient seen in cardiology follow-up. Telemetry as well as EKG this morning reveals rate controlled atrial fibrillation in the range of 60 to 80 bpm. He denies chest discomfort. He is laying at a 35 degree incline, without distress, states his breathing is improved. He denies orthopnea or resting shortness of breath at present, but still notes dyspnea with minimal exertion such as walking a few steps to the commode. He denies subjective fevers or chills, and there was no objective fever noted on his vital signs overnight last night, but he did have profuse night sweats. Review of Systems Review of Systems: All systems reviewed & are unremarkable except as noted in HPI & below Physical Exam Physical Exam: Temp Pulse Resp BP Pulse Ox 36.8 C 80 16 101/57 L 95 08/11/20 08:18 08/11/20 09:18 08/11/20 09:18 08/11/20 09:18 08/11/20 09:18 Constitutional: WD/WN, vitals as above Eyes: PERRL, conjunctivae normal, anicteric sclerae Respiratory: no respiratory distress and no labored breathing Decreased breath sounds noted at the left base Cardiovascular: Rate/Rhythm: + irregularly irregular Heart Sounds: no murmur Extremities: no edema Gastrointestinal (Abdomen): normal bowel sounds, soft, nontender, no hepatosplenomegaly Neurologic: PERRL, EOMI, accommodation nl, no face palsy, no dysarthria Results & Data ([facility]) Vital Signs (Past 12 Hours) Vital Signs Temp Pulse Resp BP Pulse Ox 08/11/20 09:18 80 16 101/57 L 95 08/11/20 08:18 36.8 C 86 20 110/89 93 08/11/20 07:18 74 18 111/69 92 08/11/20 07:00 36.6 C 62 14 95 Laboratory Results CBC 08/11/20 Range/Units 04:35 WBC 8.90 (4.8-10.8) K/uL RBC 4.00 L (4.7-6.1) M/uL Hgb 11.7 L (14.0-18.0) g/dL Hct 35.3 L (42-52) % Plt Count 220 (130-400) K/uL Neut # (Auto) 7.95 H (1.4-6.5) K/uL Lymph # (Auto) 0.47 L (1.2-3.4) K/uL [place] # (Auto) 0.46 (0.11-0.59) K/uL Eos # (Auto) 0.00 (0-0.5) K/uL Baso # (Auto) 0.00 (0-0.2) K/uL Comprehensive Metabolic Panel 08/11/20 Range/Units 04:35 Sodium 136 (136-145) mmol/L Potassium 4.3 D (3.5-5.1) mmol/L Chloride 105 (98-107) mmol/L Carbon Dioxide 25 (21-32) mmol/L BUN 23 H (7-18) mg/dl Creatinine 1.17 D (0.6-1.4) mg/dl Glucose 146 H (70-99) mg/dl Calcium 9.1 (8.5-10.1) mg/dl Intake and Output 08/10/20 08/11/20 08/11/20 22:59 06:59 14:59 Intake Total 480 / 1665 450 / 1665 735 / 735 Output Total 451 / 1601 600 / 1601 201 / 201 Balance -150 / 64 534 / 534 Intake: IV 270 / 1005 375 / 375 MAGNESIUM SULFATE / D5W 1 gm In 100 / 100 100 ml @ 50 mls/hr IV ONE ONE Rx#:[id number] Vancomycin HCl 1,250 mg In Nss 270 / 270 275 / 275 250 ml @ 200 mls/hr IV Q12H [facility] Rx#:[id number] Oral 480 / 660 180 / 660 360 / 360 Output: Urine 450 / 1600 600 / 1600 200 / 200 # Bowel Movements Other: # Unmeasured Voids 1 Weight 87.6 kg 86.5 kg Weight Measurement Method Built in [facility] Built in [facility]
[2020-08-11] MEDS ORDERED: FUROSEMIDE 40 MG in SYRINGE 0 ML IV ONE (11:30)
--- NOTE | 2020-08-11 12:02 | Communication Note ---
Date of Service: August 11, 2020 Updated Aurea by phone.
[2020-08-11 12:23] LABS: INR 1.2 (0.9-1.1); Partial Thromboplastin Ratio 1.2; Partial Thromboplastin Time 33.5 Seconds (21.0-31.0)
--- NOTE | 2020-08-11 13:34 | Pulmonology Progress Note ---
Date of Service August 11, 2020 Assessment & Plan (1) Post-pericardiotomy syndrome: CT chest 08/10/2020 personally reviewed: Left-sided loculated pleural effusion appreciated with minimal atelectasis of the left lower lobe, minimal right-sided pleural effusion, pericardial effusion again appreciated, insignificant mediastinal lymphadenopathy EKG: Sinus tachycardia, no ST-T wave changes appreciated, normal axis, QTC 498 --Acute hypoxic respiratory failure With chest discomfort EKG does not show any signs of ST-T wave changes BNP 1623, troponin 0 0.031 Procalcitonin 0.2 ESR: 49, CRP 20.4 Continue with diuresis as tolerated Possibility of pneumonia is low. Patient likely has atelectasis of the left lower lobe. Continue with antibiotics. Nasal MRSA negative Follow-up cardiolipin antibodies --Left-sided pleural effusion Increase in size compared to last admission Seems to be loculated Patient last dose of apixaban was night of 08/09/2020 Patient needs to be off apixaban for at least 48 hours before thoracentesis. Try to do thoracentesis on Monday. -- JESSICA on CKD Improving Monitor BUN/creatinine Avoid nephrotoxic medications Strict ins and outs --Pericardial effusion Likely post cardiotomy syndrome Patient's pericardial fluid which was drained on 07/23/2020 is growing coagulase-negative staph, sensitive to Vanco and clindamycin, resistant to oxacillin Patient could have infected pericardial fluid causing the leukocytosis as well as the pleuritic chest pain Patient got Solu-Medrol in the ED. Currently on prednisone. The patient has infected pericardial fluid, pericardiaectomy might be a possibility Cardiology is on board. --A. fib On apixaban at home Rate controlled --Hypertension, diabetes type 2 Continue with blood pressure medication ICU hypoglycemic protocol --Prophylaxis VTE: Apixaban on hold GI: Protonix Lines: Peripheral Diet: Cardiorenal Plan: In/out: +64 mL, urine output 1600 mL Follow cardiolipin antibodies P.o. Lasix today. Plan from cardiology to have heparin drip started. We will hold the heparin drip in the morning to see if the left-sided thoracentesis could be performed. WBC is trending down. Continue with vancomycin. Patient is hemodynamically stable to be sent to a medical floor. Please note the above document was generated using voice recognition software. It may contain grammatical, syntax or spelling errors.Any formal questions or concerns about the content, text or information contained within the body of this dictation should be directly addressed to the provider for clarification. (2) Pleural effusion: (3) Persistent atrial fibrillation: (4) Acute respiratory failure with hypoxia: Admission and Anticipated Discharge Date Admission Date: August 10, 2020 Subjective Patient seen and examined at bedside. No acute distress, no adverse events overnight. Saturating well on room air. Denies any chest pain. Feeling much better compared to when he came into the hospital. Denies any significant shortness of breath. No headache, no dizziness, no nausea or vomiting. Good appetite. Does have cough which is usually dry early in the morning. Review of Systems Review of Systems: All systems reviewed & are unremarkable except as noted in Subjective Physical Exam Physical Exam: Constitutional: No acute distress HEENT: EOMI, PERRLA Respiratory system: Decreased air entry bilaterally, no wheeze, no rhonchi, mild crackles bilaterally lower lobes CVS: S1-S2 positive, no murmurs or gallops, distant heart sounds Abdomen: Soft, nontender, nondistended, positive bowel sounds x4 Extremities: +2 pulses bilaterally radialis/ dorsalis pedis, no cyanosis, no edema Neuro: Awake alert oriented x3 Psych: Normal mood and affect G/U: No Mai Skin: no rashes, warm and dry Lymphatic: no cervical or axillary lymphadenopathy Results & Data Results & Data ([facility]) Vital Signs (Past 12 Hours) Vital Signs Temp Pulse Resp BP Pulse Ox 08/11/20 11:18 36.5 C 78 15 106/80 95 08/11/20 11:00 83 15 103/63 95 08/11/20 10:18 67 17 103/63 93 08/11/20 10:00 87 24 95 08/11/20 09:18 80 16 101/57 L 95 08/11/20 08:18 36.8 C 86 20 110/89 93 08/11/20 07:18 74 18 111/69 92 08/11/20 07:00 36.6 C 62 14 95 08/11/20 04:35 08/11/20 04:35 PG Care Time/CCT Total # of Minutes Spent Total Time Spent with Patient: Total time spent is greater than 50% in coordination of care (as documented) at patient's floor/unit and/or counseling patient: Coding Level of Care Code 86013 Subseq Hosp Care Lvl 3 Diagnoses Post-pericardiotomy syndrome I97.0 Pleural effusion J90 Persistent atrial fibrillation I48.19 Acute respiratory failure with hypoxia J96.01
[2020-08-11] MEDS ORDERED: FUROSEMIDE 40 MG TAB PO SCH (14:00)
[2020-08-11 15:16] LABS: Appearance Urine Clear (Clear); Bilirubin Urine Negative (Negative); Blood Urine Negative (Negative); Color Urine Yellow; Glucose Urine UA Negative (Negative); Ketones Urine Negative (Negative); Leukocyte Esterase Urine Negative (Negative); Nitrite Urine Negative (Negative); Protein Urine Negative (Negative); Urobilinogen Urine Negative (Negative)
--- NOTE | 2020-08-11 16:54 | Electrocardiogram Report ---
Test Reason : Blood Pressure : / mmHG Vent. Rate : 062 BPM Atrial Rate : 000 BPM P-R Int : 000 ms QRS Dur : 084 ms QT Int : 426 ms P-R-T Axes : 000 -14 101 degrees QTc Int : 432 ms Atrial fibrillation T wave abnormality, consider lateral ischemia Abnormal ECG When compared with ECG of 10-AUG-2020 07:47, Atrial fibrillation has replaced Sinus rhythm Vent. rate has decreased BY 67 BPM Confirmed by Steve Alejo ([id number]) on 08/11/2020 4:53:49 PM Referred By: REFERRED SELF Confirmed By:Steve Alejo
[2020-08-11 19:04] LABS: Partial Thromboplastin Ratio 1.3; Partial Thromboplastin Time 35.1 Seconds (21.0-31.0)
[2020-08-11] MEDS ORDERED: HEPARIN IV BOLUS 3,000 UNITS in SYRINGE 0 ML IV ONE (19:45)
[2020-08-11] MEDS: LATANOPROST 0.005% OP SOLN 2.5 ML BTL OPB SCH (20:58)
[2020-08-12 04:13] LABS: Hematocrit (blood only) 34.6 % (42-52); Hemoglobin 11.4 g/dL (14.0-18.0); Immature Granulocytes # (auto) 0.03 K/uL (0.00-0.02); Immature Granulocytes % (auto) 0.3 %; Lymphocytes # (auto) 0.81 K/uL (1.2-3.4); Lymphocytes % (auto) 7.5 %; Mean Corpuscular Hgb Conc 32.9 g/dL (32-36); Mean Platelet Volume 9.9 fL (7.4-10.4); Monocytes # (auto) 0.78 K/uL (0.11-0.59); Monocytes % (auto) 7.2 %; Neutrophils # (auto) 9.25 K/uL (1.4-6.5); Platelet Count 263 K/uL (130-400); RDW Standard Deviation 45.2 fL (36.4-46.3); Red Blood Count 3.93 M/uL (4.7-6.1); White Blood Count 10.87 K/uL (4.8-10.8)
[2020-08-12 04:25] LABS: Partial Thromboplastin Ratio 1.6; Partial Thromboplastin Time 43.3 Seconds (21.0-31.0)
[2020-08-12 04:31] LABS: BUN Creatinine Ratio 27.9 (10-20); Calcium 8.6 mg/dl (8.5-10.1); Creatinine Clr Calc Pharmacy 61.2 ml/min; Est GFR (African American) 72.8; Est GFR (Non-African American) 62.8; Potassium 3.7 mmol/L (3.5-5.1)
[2020-08-12] MEDS ORDERED: VANCOMYCIN TROUGH ONE (07:30)
[2020-08-12] MEDS: PANTOprazole 40 MG TAB PO SCH (08:16)
[2020-08-12] MEDS: COLCHICINE 0.6 MG TAB PO SCH ×2 (08:16→20:11)
[2020-08-12] MEDS: predniSONE 10 MG TABLET PO SCH (08:16)
[2020-08-12] MEDS: MULTIVITAMIN TAB PO SCH (08:16)
[2020-08-12] MEDS: VANCOMYCIN HCL 1,250 MG in SODIUM CHLORIDE 0.9% 250 ML IV SCH ×2 (08:35→20:10)
[2020-08-12] MEDS ORDERED: MULTIVITAMIN TAB PO SCH (09:00)
[2020-08-12] MEDS ORDERED: POTASSIUM CHLORIDE CRTAB 20 MEQ TABCR PO STA (10:47)
--- NOTE | 2020-08-12 10:52 | Cardiology Progress Note ---
Date of Service August 12, 2020 Assessment & Plan (1) Post-pericardiotomy syndrome: CP and shortness of breath improved. Day 2 of prednisone 30 mg today. Continue colchicine. Supplement potassium. Will wait until after thoracentesis to dose diuretic today. (2) Pleural effusion: moderate loculated left pleural effusion, 1 month post surgical bio AVR. Normal LVEF. Question if there is a component of pleuropericarditis. Plan for US guided thoracentesis today by pulm service. Pt has been off of Eliquis x 48 hrs. Heparin gtt held 08/12/20 at 6 am. (3) Atrial fibrillation with RVR: AF , RVR at 110-119 bpm present in ED having been in SR last week at time of outpatient echo. Telemetry this and EKG reveals rate controlled AF in th 60s off of AV tomás agents due to relative bradycardia. Will reassess timing of resuming anticoagulation after thoracentesis. Admission and Anticipated Discharge Date Admission Date: August 10, 2020 Subjective Patient seen in follow up. Shortness of breath improved compared to admission. Denies subjective fever. Review of Systems Review of Systems: All systems reviewed & are unremarkable except as noted in HPI & below Physical Exam Physical Exam: Temp Pulse Resp BP Pulse Ox 36.6 C 67 18 126/85 99 08/12/20 07:11 08/12/20 07:11 08/12/20 07:11 08/12/20 07:11 08/12/20 07:11 Constitutional: WD/WN, vitals as above Respiratory: Auscultation: + diminished lung sounds (decreased BS at left base ); no crackles, no rales and no wheezes Cardiovascular: Rate/Rhythm: + irregularly irregular Heart Sounds: no murmur Vessels: no JVD Extremities: no edema Gastrointestinal (Abdomen): normal bowel sounds, soft, nontender, no hepatosplenomegaly Neurologic: PERRL, EOMI, accommodation nl, no face palsy, no dysarthria Results & Data ([facility]) Vital Signs (Past 12 Hours) Vital Signs Temp Pulse Resp BP BP Pulse Ox 08/12/20 07:11 36.6 C 67 18 126/85 99 08/12/20 03:13 36.5 C 63 18 115/71 96 08/11/20 23:52 36.4 C L 60 18 121/75 96 Laboratory Results Coagulation 08/11/20 08/11/20 08/12/20 Range/Units 12:00 18:36 03:48 PT 13.0 H (9.0-12.0) Seconds APTT 33.5 H 35.1 H 43.3 H (21.0-31.0) Seconds CBC 08/12/20 Range/Units 03:48 WBC 10.87 H (4.8-10.8) K/uL RBC 3.93 L (4.7-6.1) M/uL Hgb 11.4 L (14.0-18.0) g/dL Hct 34.6 L (42-52) % Plt Count 263 (130-400) K/uL Neut # (Auto) 9.25 H (1.4-6.5) K/uL Lymph # (Auto) 0.81 L (1.2-3.4) K/uL [place] # (Auto) 0.78 H (0.11-0.59) K/uL Eos # (Auto) 0.00 (0-0.5) K/uL Baso # (Auto) 0.00 (0-0.2) K/uL Comprehensive Metabolic Panel 08/12/20 Range/Units 03:48 Sodium 137 (136-145) mmol/L Potassium 3.7 (3.5-5.1) mmol/L Chloride 104 (98-107) mmol/L Carbon Dioxide 28 (21-32) mmol/L BUN 32 H (7-18) mg/dl Creatinine 1.15 (0.6-1.4) mg/dl Glucose 126 H (70-99) mg/dl Calcium 8.6 (8.5-10.1) mg/dl Intake and Output 08/11/20 08/12/20 08/12/20 22:59 06:59 14:59 Intake Total 322.7 / 1920.85 503.15 / 1920.85 300 / 300 Output Total 400 / 601 400 / 400 Balance 322.7 / 1319.85 103.15 / 1319.85 -100 / -100 Intake: IV 122.7 / 1000.85 503.15 / 1000.85 HEPARIN SODIUM/DEXTROSE 25,000 122.7 / 350.85 228.15 / 350.85 units In 500 ml @ 1,050 UNITS/ HR 21 mls/hr IV .[id number] [facility] Rx #:[id number] Vancomycin HCl 1,250 mg In Nss 275 / 550 250 ml @ 200 mls/hr IV Q12H [facility] Rx#:[id number] Oral 200 / 920 300 / 300 Output: Urine 400 / 600 400 / 400 Other: # Unmeasured Voids 1 Weight 86.9 kg Weight Measurement Method Standing Scale Patient Weight 08/13/20 06:59 Weight 86.9 kg
--- NOTE | 2020-08-12 11:08 | Pharmacy Report ---
Pharmacy Abx Dose Short Note - Date of Service August 12, 2020 - Assessment & Plan Assessment 74 year old M receiving Vancomycin for treatment of CoNS pericarditis * Day #3 of antimicrobial therapy * Afebrile. WBCs increased slightly today. SCr remained stable. * Trough level was inappropriately re-timed by lab this morning. Plan Vancomycin * Trough level of 21.7 mcg/mL was drawn 4 hours before it should have been. Therefore, this is falsely elevated. Patient specific kinetics allowed me to estimate the trough to be 17.2 mcg/mL which would have been therapeutic had it been drawn appropriately. * Continue dose of 1250 mg IV every 12 hours * Goal trough level: 15 to 20 mcg/mL * Trough level ordered for tomorrow morning to assure appropriately drawn trough is therapeutic Pharmacy will continue to follow and will adjust dose/frequency as necessary. Thank you.
--- NOTE | 2020-08-12 12:15 | Electrocardiogram Report ---
Test Reason : Blood Pressure : / mmHG Vent. Rate : 067 BPM Atrial Rate : 000 BPM P-R Int : 000 ms QRS Dur : 088 ms QT Int : 414 ms P-R-T Axes : 000 -16 110 degrees QTc Int : 437 ms Atrial fibrillation Possible Anterior infarct , age undetermined T wave abnormality, consider lateral ischemia Abnormal ECG When compared with ECG of 11-AUG-2020 06:52, No significant change was found Confirmed by Steve Alejo ([id number]) on 08/12/2020 12:15:37 PM Referred By: REFERRED SELF Confirmed By:Steve Alejo
--- NOTE | 2020-08-12 15:36 | XRay Report ---
SINGLE VIEW CHEST CLINICAL HISTORY: Status post thoracentesis attempt. FINDINGS: An AP, portable, upright chest radiograph is compared to chest x-ray and chest CT dated . The patient is status post midline sternotomy. The heart is enlarged noting atherosclerotic calcification of the thoracic aorta. The pulmonary vasculature is noncongested. There are left larger than right pleural effusions with associated left basilar consolidation. No pneumothorax is seen. Th e skeletal structures are osteopenic. The bony thorax is grossly intact. IMPRESSION: 1. Cardiomegaly without radiographic evidence of congestive failure. 2. Left larger than right pleural effusions with left basilar consolidation. This is unchanged from 1 10/10/2019. 3. No pneumothorax is identified post procedure. ACT 112: Negative or not required by law. Electronically signed by: Young Moss M.D. 08/12/2020 3:34 PM
--- NOTE | 2020-08-12 16:36 | Procedure Note ---
Procedure Note Date of Service August 12, 2020 Procedure: Diagnostic therapeutic ultrasound-guided catheter thoracentesis Mechanical Applications Engineer: Dr. Charo Lozano Indication: Pleural effusion Consent: Signed by patient and verified with timeout prior to procedure Anesthesia: 1% lidocaine without epinephrine local. Procedure: Consent was verified and timeout performed. Appropriate imaging studies were reviewed prior to the procedure. Patient was placed in a seated position and limited thoracic ultrasound was performed of the left chest. See separate imaging. Appropriate site above the diaphragm for thoracentesis was selected. The skin was prepped and draped in normal sterile fashion. Lidocaine was used for local analgesia. A small skin aries was made with the scalpel and the catheter over the needle apparatus was advanced over the rib into the pleural space. Patient had a very small pocket which with the help of ultrasound try to be drained but procedure was terminated after 3 trials. No fluid was aspirated. The catheter was removed and observed to be intact. A sterile dressing was applied. Postprocedure chest x-ray does not show any signs of pneumothorax. Complications: None Blood loss: Less than 1 cc Coding CPT Codes Pulmonary/Thoracic - Pulmonary and Thoracic: 26742 Thoracentesis w imaging ([id number]) [facility] [place] Procedure Codes ([place]arges) Pulmonary/Thoracic Procedure 1: Pulmonary and Thoracic: 41136 Thoracentesis w imaging
--- NOTE | 2020-08-12 16:42 | Pulmonology Progress Note ---
Date of Service August 12, 2020 Assessment & Plan (1) Post-pericardiotomy syndrome: CT chest 08/10/2020 personally reviewed: Left-sided loculated pleural effusion appreciated with minimal atelectasis of the left lower lobe, minimal right-sided pleural effusion, pericardial effusion again appreciated, insignificant mediastinal lymphadenopathy EKG: Sinus tachycardia, no ST-T wave changes appreciated, normal axis, QTC 498 --Left-sided pleural effusion Increase in size compared to last admission Seems to be loculated Patient last dose of apixaban was night of 08/09/2020 On bedside ultrasound the left-sided pleural effusion seems to have decreased in size compared to when the patient presented on Monday. There was one loculated left lateral fluid which was attempted for thoracentesis but was not successful. --Pericardial effusion Likely post cardiotomy syndrome Patient's pericardial fluid which was drained on 07/23/2020 is growing coagulase-negative staph, sensitive to Vanco and clindamycin, resistant to oxacillin Patient could have infected pericardial fluid causing the leukocytosis as well as the pleuritic chest pain The patient has infected pericardial fluid, pericardiaectomy might be a poss ibility Cardiology is on board. Plan: Attempted thoracentesis was not successful because the fluid is very loculated. It was terminated after 3 trials. No postprocedure pneumothorax. Given that the size of pleural fluid has decreased to some extent compared to when patient was admitted on Monday and patient feeling well with prednisone and colchicine. Recommend continuing with the same. No further recommendations from pulmonary perspective. We will sign off. Please recall if needed. Please note the above document was generated using voice recognition software. It may contain grammatical, syntax or spelling errors.Any formal questions or concerns about the content, text or information contained within the body of this dictation should be directly addressed to the provider for clarification. (2) Pleural effusion: (3) Persistent atrial fibrillation: (4) Acute respiratory failure with hypoxia: Admission and Anticipated Discharge Date Admission Date: August 10, 2020 Subjective Patient seen and examined at bedside. No acute distress, no adverse events overnight. Patient denies any chest pain. States that the shortness of breath is improved. He says that he is able to go to the bathroom without any significant chest discomfort. No dysuria, no diarrhea. Good appetite. Heparin drip has been on hold since 6 AM. Review of Systems Review of Systems: All systems reviewed & are unremarkable except as noted in Subjective Physical Exam Physical Exam: Constitutional: No acute distress HEENT: EOMI, PERRLA Respiratory system: Decreased air entry bilaterally, no wheeze, no rhonchi, mild crackles bilaterally lower lobes CVS: S1-S2 positive, no murmurs or gallops, distant heart sounds Abdomen: Soft, nontender, nondistended, positive bowel sounds x4 Extremities: +2 pulses bilaterally radialis/ dorsalis pedis, no cyanosis, no edema Neuro: Awake alert oriented x3 Psych: Normal mood and affect G/U: No Mai Skin: no rashes, warm and dry Lymphatic: no cervical or axillary lymphadenopathy Results & Data Results & Data ([facility]) Vital Signs (Past 12 Hours) Vital Signs Temp Pulse Resp BP BP Pulse Ox 08/12/20 16:01 36.4 C L 69 18 115/70 97 08/12/20 11:54 37.1 C 70 19 118/75 95 08/12/20 07:11 36.6 C 67 18 126/85 99 08/12/20 03:48 08/12/20 03:48 PG Care Time/CCT Total # of Minutes Spent Total Time Spent with Patient: Total time spent is greater than 50% in coordination of care (as documented) at patient's floor/unit and/or counseling patient: Coding Level of Care Code 07213 Subseq Hosp Care Lvl 3 Diagnoses Post-pericardiotomy syndrome I97.0 Pleural effusion J90 Persistent atrial fibrillation I48.19 Acute respiratory failure with hypoxia J96.01
--- NOTE | 2020-08-12 17:55 | Communication Note ---
Date of Service: August 12, [address] Lozano. OK to resume anticoagulation post attempted thoracentesis. Heparin stopped. Start Eliquis tonight at 2100.
--- NOTE | 2020-08-12 19:42 | Hospitalist Progress Note ---
Date of Service August 12, 2020 Assessment & Plan (1) Dyspnea: (2) Pleural effusion, left: Present on admission with worsening SOB CXR on admission showed increase in size in the small to moderate left pleural effusion. Echocardiogram and chest CT revealed pericardial effusion, but improved. Initially admitted to ICU from the ED, Received IV Solu-Medrol 6 mg in ED, Received 40 mg IV Lasix in ED, started on antibiotics0 continuing on empiric antibiotics of cefepime and Vancomycin and steroid Thoracentesis attempted today by Pulmonology but failed after 3 trials Repeat CXR today showed left larger than right pleural effusions with left basilar consolidation. This is unchanged from 08/10/2020. 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 he reports denies use of ibuprofen which was prescribed as prn if chest discomforts not alleviated by colchicine because he generally did not have acute chest pains Continue oral prednisone and colchicine (4) SIRS (systemic inflammatory response syndrome): -Pericardial fluid culture from his recent admission grew coag negative staph -currently on IV antibiotics until any underlying infectious causes for the initial SIRs criteria can be ruled out -follow the recommendations of ICU/pulmonary physician and cardiology physician (5) Acute worsening of stage 3 chronic kidney disease: -Baseline creatinine 1.1, admission BUN/creatinine 21 and 1.65 -creatinine 1.17 by 08/11/2020 -monitor the renal function (6) Hypomagnesemia: -low serum magnesium of 1.0 on this hospital admission presentation, Received 2 g magnesium in ED -continue scheduled oral magnesium supplements -serum magnesium of 1.9 on 08/11/2020 -replete as needed to target a level close to 2 (7) Persistent atrial fibrillation: Heparin drip was discontinued Eliquis resumed (8) Hypertension: -blood pressure has been low normotensive -defer to cardiology service on how to resume diuretics or ZAKIA inhibitor (9) T2DM (type 2 diabetes mellitus): -HbA1c 6.0 07/02/2020, was placed on ICU hyperglycemic protocol -diabetes mellitus generally under control and likely will not require much sliding scale insulin -monitor blood sugars while on prednisone (10) GERD (gastroesophageal reflux disease): -continue PPI (11) DVT prophylaxis: On Eliquis Admission and Anticipated Discharge Date Admission Date: August 10, 2020 Subjective Pt was seen and examined Lying in bed with no distress Pt said that his breathing slightly better He said that he walked last night in the hallway with no distress Denies any chest pain, palpitation, dizziness and fever Physical Exam Physical Exam: General- No acute distress Head- atraumatic Eyes- PERRL, EOMI, ENT- oropharynx clear Neck- supple, no JVD Lungs- Diminished BS Heart- No Murmur Abdomen- normal bowel sounds, soft, nontender Extremities- no calf tenderness, No edema Neuro- alert, oriented x 3; PERRL, EOMI; no facial palsy; no dysarthria Skin- warm & dry Results & Data Results & Data ([facility]) Vital Signs (Past 12 Hours) Vital Signs Temp Pulse Resp BP BP Pulse Ox 08/12/20 16:01 36.4 C L 69 18 115/70 97 08/12/20 11:54 37.1 C 70 19 118/75 95
[2020-08-12] MEDS: APIXABAN 5 MG TABLET PO SCH (20:10)
[2020-08-12] MEDS: LATANOPROST 0.005% OP SOLN 2.5 ML BTL OPB SCH (20:11)
[2020-08-13] MEDS ORDERED: VANCOMYCIN TROUGH ONE (07:30)
[2020-08-13 08:23] LABS: BUN Creatinine Ratio 20.3 (10-20); Calcium 9.6 mg/dl (8.5-10.1); Est GFR (Non-African American) 62.1; Potassium 3.9 mmol/L (3.5-5.1)
[2020-08-13 08:30] LABS: Eosinophils # (auto) 0.01 K/uL (0-0.5); Eosinophils % (auto) 0.2 %; Hematocrit (blood only) 36.4 % (42-52); Hemoglobin 11.9 g/dL (14.0-18.0); Immature Granulocytes # (auto) 0.01 K/uL (0.00-0.02); Immature Granulocytes % (auto) 0.2 %; Lymphocytes # (auto) 0.89 K/uL (1.2-3.4); Lymphocytes % (auto) 19.3 %; Mean Corpuscular Hemoglobin 29.3 pg (25-34); Mean Corpuscular Hgb Conc 32.7 g/dL (32-36); Mean Corpuscular Volume 89.7 fL (80-100); Mean Platelet Volume 9.8 fL (7.4-10.4); Monocytes # (auto) 0.46 K/uL (0.11-0.59); Neutrophils # (auto) 3.23 K/uL (1.4-6.5); Neutrophils % (auto) 70.3 %; Platelet Count 303 K/uL (130-400); RDW Coefficient of Variation 14.3 % (11.5-14.5); RDW Standard Deviation 46.8 fL (36.4-46.3); Red Blood Count 4.06 M/uL (4.7-6.1)
[2020-08-13] MEDS: predniSONE 10 MG TABLET PO SCH (08:34)
[2020-08-13] MEDS: FUROSEMIDE 40 MG in SYRINGE 0 ML IV SCH (08:34)
[2020-08-13] MEDS: APIXABAN 5 MG TABLET PO SCH ×2 (08:34→21:35)
[2020-08-13] MEDS: MULTIVITAMIN TAB PO SCH (08:34)
[2020-08-13] MEDS: PANTOprazole 40 MG TAB PO SCH (08:34)
[2020-08-13] MEDS: COLCHICINE 0.6 MG TAB PO SCH ×2 (08:34→21:35)
[2020-08-13] MEDS: VANCOMYCIN HCL 1,250 MG in SODIUM CHLORIDE 0.9% 250 ML IV SCH (08:35)
--- NOTE | 2020-08-13 10:26 | Pulmonology Progress Note ---
Date of Service August 13, 2020 Assessment & Plan (1) Post-pericardiotomy syndrome: CT chest 08/10/2020 personally reviewed: Left-sided loculated pleural effusion appreciated with minimal atelectasis of the left lower lobe, minimal right-sided pleural effusion, pericardial effusion again appreciated, insignificant mediastinal lymphadenopathy EKG: Sinus tachycardia, no ST-T wave changes appreciated, normal axis, QTC 498 --Left-sided pleural effusion Increase in size compared to last admission Seems to be loculated On bedside ultrasound the left-sided pleural effusion seems to have decreased in size compared to when the patient presented on Monday. There was one loculated left lateral fluid which was attempted for thoracentesis but was not successful on 08/12/20 --Pericardial effusion Likely post cardiotomy syndrome Patient's pericardial fluid which was drained on 07/23/2020 is growing coagulase-negative staph, sensitive to Vanco and clindamycin, resistant to oxacillin Patient could have infected pericardial fluid causing the leukocytosis as well as the pleuritic chest pain The patient has infected pericardial fluid, pericardiaectomy might be a possibility Cardiology is on board. Plan: Continue with prednisone and colchicine as per cardiology recommendations No further recommendations from pulmonary perspective. Will sign off. Please recall if needed. Please note the above document was generated using voice recognition software. It may contain grammatical, syntax or spelling errors.Any formal questions or concerns about the content, text or information contained within the body of this dictation should be directly addressed to the provider for clarification. (2) Pleural effusion: (3) Persistent atrial fibrillation: (4) Acute respiratory failure with hypoxia: Admission and Anticipated Discharge Date Admission Date: August 10, 2020 Subjective Patient seen and examined at bedside. No acute distress, no adverse events overnight. Denies any chest pain. No shortness of breath. Coughs occasionally without any phlegm. Using incentive spirometry going up to 2000 mL. No nausea or vomiting. Walking around in the room without any issues. Good appetite. Review of Systems Review of Systems: All systems reviewed & are unremarkable except as noted in Subjective Physical Exam Physical Exam: Constitutional: No acute distress HEENT: EOMI, PERRLA Respiratory system: Decreased air entry bilaterally, no wheeze, no rhonchi, no crackles CVS: S1-S2 positive, no murmurs or gallops, distant heart sounds Abdomen: Soft, nontender, nondistended, positive bowel sounds x4 Extremities: +2 pulses bilaterally radialis/ dorsalis pedis, no cyanosis, +1 pitting edema bilateral lower extremity Neuro: Awake alert oriented x3 Psych: Normal mood and affect G/U: No Mai Skin: no rashes, warm and dry Lymphatic: no cervical or axillary lymphadenopathy Results & Data Results & Data ([facility]) Vital Signs (Past 12 Hours) Vital Signs Temp Pulse Pulse Resp BP Pulse Ox 08/13/20 07:55 36.3 C L 73 19 135/89 97 08/13/20 07:00 80 08/13/20 03:00 36.4 C L 56 L 18 132/86 99 08/12/20 23:25 36.5 C 60 18 134/67 97 08/13/20 07:20 08/13/20 07:20 PG Care Time/CCT Total # of Minutes Spent Total Time Spent with Patient: Total time spent is greater than 50% in coordination of care (as documented) at patient's floor/unit and/or counseling patient: Coding Level of Care Code 85926 Subseq Hosp Care Lvl 2 Diagnoses Post-pericardiotomy syndrome I97.0 Pleural effusion J90 Persistent atrial fibrillation I48.19 Acute respiratory failure with hypoxia J96.01
--- NOTE | 2020-08-13 10:37 | Pharmacy Report ---
Pharmacy Abx Dose Short Note - Date of Service August 13, 2020 - Assessment & Plan Assessment 74 year old M receiving vancomycin for possible pericarditis Plan Vancomycin * Trough level came back therapeutic at ~20 mcg/ml - goal 15-20 mcg/ml * Renal function remains stable, continue same dosing of vancomycin for now * Plan to recheck trough in next 2-3 days if continued Pharmacy will continue to follow and will adjust dose/frequency as necessary. Thank you.
--- NOTE | 2020-08-13 12:15 | Cardiology Progress Note ---
Date of Service August 13, 2020 Assessment & Plan (1) Post-pericardiotomy syndrome: Patient feeling improved. This is his fourth day of corticosteroid therapy having received Solu-Medrol on day 1, and 3 days of prednisone 30 mg thus far. We will plan to continue colchicine 0.6 mg twice daily which she was on prior to this hospital stay. With plan a long slow taper of prednisone. Continue 30 mg x 3 more days at discharge. Then prednisone 20 mg daily, x 7 days Then prednisone 10 mg daily x7 days Then prednisone 5 mg x 7 days Then prednisone 2.5 mg x 7 days. Continue Protonix 40 mg daily for GI prophylaxis. Anticipate discharging on furosemide 60 mg daily as compared to his prior to hospital 40 mg daily, await echo results prior to making that decision. Echocardiogram ordered to be performed today. As noted, the left pleural effusion was not amenable to thoracentesis. Continue diuretic therapy. The patient has been on empiric vancomycin and findings of coag negative Staphylococcus on pericardial fluid sample from last month. He has been afebrile, and his blood cultures are negative. At this time, I favor discontinuation of antibiotics and proceeding without ongoing antibiotic therapy. (2) Persistent atrial fibrillation: Patient has a history of bradycardia. He is therefore not on AV tomás blockers. Telemetry reveals ongoing rate controlled atrial fibrillation in the range of 60 to 80 bpm. Continue Eliquis for stroke prophylaxis. This is an off label use for Eliquis given his history of bioprosthetic aortic valve replacement. I believe however that the benefits of this medication outweigh potential risks, as given his recent postoperative state, and his pericardial disease, along with treatment with prednisone, I think the predictable level of anticoagulation offered by this agent is more ideal potentially labile INR readings anticipated with Coumadin. Hopefully atrial fibrillation will resolve once his acute inflammatory process improves. (3) S/P AVR (aortic valve replacement): 1 month post op. He was to see Dr. Ballesteros in [place] surgery follow-up today who is aware of the patient's current hospital stay, and he is going to help rearrange the patient surgical follow-up appointment. Disposition: Await echo results. Anticipated discharge today if stable. I will message the cardiology office to help schedule follow-up with me, Mr Mejia, or Dr Olvera within the next 1-2 weeks. Admission and Anticipated Discharge Date Admission Date: August 10, 2020 Subjective Patient feeling subjectively improved. Denies chest discomfort or shortness of breath. Denies subjective palpitations. Review of Systems Review of Systems: All systems reviewed & are unremarkable except as noted in HPI & below Physical Exam Physical Exam: Temp Pulse Resp BP Pulse Ox 36.3 C L 73 19 135/89 97 08/13/20 07:55 08/13/20 07:55 08/13/20 07:55 08/13/20 07:55 08/13/20 07:55 Constitutional: WD/WN, vitals as above Respiratory: Auscultation: no crackles, no rales, no rhonchi and no wheezes Mildly decreased breath sounds at the left base Cardiovascular: Rate/Rhythm: + irregularly irregular Heart Sounds: no murmur Vessels: no JVD Gastrointestinal (Abdomen): normal bowel sounds, soft, nontender, no hepatosplenomegaly Neurologic: PERRL, EOMI, accommodation nl, no face palsy, no dysarthria Results & Data ([facility]) Vital Signs (Past 12 Hours) Vital Signs Temp Pulse Pulse Resp BP Pulse Ox 08/13/20 07:55 36.3 C L 73 19 135/89 97 08/13/20 07:00 80 08/13/20 03:00 36.4 C L 56 L 18 132/86 99 Laboratory Results CBC 08/13/20 Range/Units 07:20 WBC 4.60 L (4.8-10.8) K/uL RBC 4.06 L (4.7-6.1) M/uL Hgb 11.9 L (14.0-18.0) g/dL Hct 36.4 L (42-52) % Plt Count 303 (130-400) K/uL Neut # (Auto) 3.23 (1.4-6.5) K/uL Lymph # (Auto) 0.89 L (1.2-3.4) K/uL [place] # (Auto) 0.46 (0.11-0.59) K/uL Eos # (Auto) 0.01 (0-0.5) K/uL Baso # (Auto) 0.00 (0-0.2) K/uL Comprehensive Metabolic Panel 08/13/20 Range/Units 07:20 Sodium 141 (136-145) mmol/L Potassium 3.9 (3.5-5.1) mmol/L Chloride 109 H (98-107) mmol/L Carbon Dioxide 27 (21-32) mmol/L BUN 24 H (7-18) mg/dl Creatinine 1.16 (0.6-1.4) mg/dl Glucose 89 (70-99) mg/dl Calcium 9.6 (8.5-10.1) mg/dl Intake and Output 08/12/20 08/13/20 08/13/20 22:59 06:59 14:59 Intake Total 550 / 1325 200 / 1325 275 / 275 Output Total 1974 Balance -250 / -650 -575 / -650 275 / 275 Intake: IV 275 / 550 275 / 275 HEPARIN SODIUM/DEXTROSE 25,000 0 / 0 units In 500 ml @ 0 UNITS/HR IV .Q0M [facility] Rx#:[id number] Vancomycin HCl 1,250 mg In Nss 275 / 550 275 / 275 250 ml @ 200 mls/hr IV Q12H [facility] Rx#:[id number] Oral 275 / 775 / 775 Output: Urine 1974 Other: Weight 87.4 kg Weight Measurement Method Standing Scale
[2020-08-13 13:28] LABS: Anti Cardiolipin Ab IgG <14 GPL; Anti Cardiolipin Ab IgM <12 MPL; Anti-Cardiolipin Ab IgA <11 APL
--- NOTE | 2020-08-13 16:46 | Hospitalist Progress Note ---
Date of Service August 13, 2020 Assessment & Plan (1) Dyspnea: (2) Pleural effusion, left: Present on admission with worsening SOB CXR on admission showed increase in size in the small to moderate left pleural effusion. Echocardiogram and chest CT revealed pericardial effusion, but improved. Initially admitted to ICU from the ED, Received IV Solu-Medrol 6 mg in ED, Received 40 mg IV Lasix in ED, started on antibiotics Pericardial fluid sample from last month positive for Coag neg staph not lugdunensis. Pt said that he did not complete any course of abx Received antibiotics of cefepime and Vancomycin I was planning to discontinue the Vanco and transition to Doxycycline or clindamycin, but I discussed the case with ID in [place] Recommended to treat it since the sample was collected from a sterile site and will required 2 to 4 weeks abx and will probably need IV abx Will continue renal dose IV Vanco for now until evaluate by ID Thoracentesis attempted today by Pulmonology but failed after [address] a formal consult with ID Repeat CXR today showed left larger than right pleural effusions with left basilar consolidation. This is unchanged from 08/10/2020. 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 he reports denies use of ibuprofen which was prescribed as prn if chest discomforts not alleviated by colchicine because he generally did not have acute chest pains Continue oral prednisone and colchicine Cardiology recommended Colchicine 0.6 mg twice daily and a long slow taper of prednisone. Continue 30 mg x 3 more days at discharge. Then prednisone 20 mg daily, x 7 days Then prednisone 10 mg daily x7 days Then prednisone 5 mg x 7 days Then prednisone 2.5 mg x 7 days. (4) SIRS (systemic inflammatory response syndrome): Pericardial fluid culture from his recent admission grew coag negative staph Currently on IV antibiotics until any underlying infectious causes for the initial SIRs criteria can be ruled out Follow the recommendations of ICU/pulmonary physician and cardiology physician (5) Acute worsening of stage 3 chronic kidney disease: Baseline creatinine 1.1, admission BUN/creatinine 21 and 1.65 creatinine 1.1 today Continue monitor (6) Hypomagnesemia: -low serum magnesium of 1.0 on this hospital admission presentation, Received 2 g magnesium in ED -continue scheduled oral magnesium supplements -serum magnesium of 1.9 on 08/11/2020 -replete as needed to target a level close to 2 (7) Persistent atrial fibrillation: Heparin drip was discontinued Eliquis resumed (8) Hypertension: BP stable Will resume Lisinopril tomorrow (9) T2DM (type 2 diabetes mellitus): -HbA1c 6.0 07/02/2020, was placed on ICU hyperglycemic protocol -diabetes mellitus generally under control and likely will not require much sliding scale insulin -monitor blood sugars while on prednisone (10) GERD (gastroesophageal reflux disease): continue PPI (11) DVT prophylaxis: On Eliquis Admission and Anticipated Discharge Date Admission Date: August 10, 2020 Subjective Pt was seen and examined Lying in bed with no distress Pt said that he feels much better He said that his breathing is much better He continues to walk in the hallway with no distress Denies any chest pain, palpitation, dizziness and fever Physical Exam Physical Exam: General- No acute distress Head- atraumatic Eyes- PERRL, EOMI, ENT- oropharynx clear Neck- supple, no JVD Lungs- Diminished BS Heart- No Murmur Abdomen- normal bowel sounds, soft, nontender Extremities- no calf tenderness, No edema Neuro- alert, oriented x 3; PERRL, EOMI; no facial palsy; no dysarthria Skin- warm & dry Results & Data Results & Data ([facility]) Vital Signs (Past 12 Hours) Vital Signs Temp Pulse Pulse Resp BP BP Pulse Ox 08/13/20 15:14 36.4 C L 67 21 143/81 H 97 08/13/20 15:04 67 08/13/20 12:15 36.3 C L 73 19 141/88 H 95 08/13/20 07:55 36.3 C L 73 19 135/89 97 08/13/20 07:00 80
[2020-08-13] MEDS ORDERED: VANCOMYCIN CONSULT ACTIVE PRN (18:02)
--- NOTE | 2020-08-13 18:24 | Communication Note ---
Date of Service: August 13, [address] Martinez. Agree with plans for formal ID consult regarding coag neg staph from pericardial fluid culture last month. Hold discharge. Updated former spouse , Aurea, per his request.
[2020-08-13] MEDS ORDERED: VANCOMYCIN HCL 1,500 MG in SODIUM CHLORIDE 0.9% 500 ML IV ONE (18:30)
--- NOTE | 2020-08-13 19:06 | Communication Note ---
Date of Service: August 13, 2020 I called and updated pts son , Gelacio, and former spouse, Aurea per pt's request
[2020-08-13] MEDS: LATANOPROST 0.005% OP SOLN 2.5 ML BTL OPB SCH (21:35)
[2020-08-14 07:03] LABS: Creatinine Clr Calc Pharmacy 56.2 ml/min; Est GFR (African American) 65.8; Est GFR (Non-African American) 56.8
[2020-08-14] MEDS: APIXABAN 5 MG TABLET PO SCH (08:04)
[2020-08-14] MEDS: FUROSEMIDE 40 MG in SYRINGE 0 ML IV SCH (08:04)
[2020-08-14] MEDS: predniSONE 10 MG TABLET PO SCH (08:04)
[2020-08-14] MEDS: COLCHICINE 0.6 MG TAB PO SCH (08:04)
[2020-08-14] MEDS: MULTIVITAMIN TAB PO SCH (08:04)
[2020-08-14] MEDS: PANTOprazole 40 MG TAB PO SCH (08:04)
--- NOTE | 2020-08-14 12:01 | Communication Note ---
Date of Service: August 14, 2020 Patient feels well. Telemetry reveals rate controlled atrial fibrillation in the 60 [address] Martinez discussed case with ID, agree with plan to monitor without antibiotic therapy with thoughts that the coag negative staph and pericardial fluid could very well be a contaminant. Continue with plans for discharge on colchicine, prednisone taper as previously discussed my progress note yesterday. Discharge on furosemide 60 mg p.o. daily as compared to 40 mg daily prior to hospital stay. I requested cardiology follow-up yesterday, should be in the process of being scheduled.
--- NOTE | 2020-08-14 15:06 | Hospitalist Progress Note ---
Date of Service August 14, 2020 Assessment & Plan (1) Dyspnea: (2) Pleural effusion, left: Present on admission with worsening SOB CXR on admission showed increase in size in the small to moderate left pleural effusion. Echocardiogram and chest CT revealed pericardial effusion, but improved. Initially admitted to ICU from the ED, Received IV Solu-Medrol 6 mg in ED, Received 40 mg IV Lasix in ED, started on antibiotics Pericardial fluid sample from last month positive for Coag neg staph not lugdunensis. Pt said that he did not complete any course of abx Received antibiotics of cefepime and Vancomycin I was planning to discontinue the Vanco and transition to Doxycycline or clindamycin, but I discussed the case with ID in [place] Recommended to treat it since the sample was collected from a sterile site and will required 2 to 4 weeks abx and will probably need IV abx Will continue renal dose IV Vanco for now until evaluate by ID Thoracentesis attempted today by Pulmonology but failed after 3 trials Repeat CXR today showed left larger than right pleural effusions with left basilar consolidation. This is unchanged from 08/10/2020. Cardiology recommended to increase Lasix to 60mg daily on discharge (3) Post-pericardiotomy syndrome: Presence of Bioprosthetic Aortic Valve -previous history of aortic valve replacement with [facility] in [place] and then subsequent hospitalization at [facility] from 07/23/2020 to 07/27/2020 hospitalization for complication of cardiac tamponade with emergent pericardiocentesis and evacuation of 875 mL serosanguineous fluid Patient was treated symptomatically with colchicine. he reports denies use of ibuprofen which was prescribed as prn if chest discomforts not alleviated by colchicine because he generally did not have acute chest pains Pericardial fluid sample on 07/23 positive for Coag neg staph not lugdunensis. Reviewed epic chart showed patient had a consult with [facility] on 08/10 that we we missed that did not show in the [facility] EMR chart by Dr. Rommel Payan. Dr. Frederick Payan at that time recommended to discontinue the IV Vanco for possible contamination case discussed with ID [facility] Dr. Frederick Payan today that recommended not to start any antibiotic. recommended if pt develops any fever to seek medical attention Continue oral prednisone and colchicine Cardiology recommended Colchicine 0.6 mg twice daily and a long slow taper of prednisone. Continue 30 mg x 3 more days at discharge. Then prednisone 20 mg daily, x 7 days Then prednisone 10 mg daily x7 days Then prednisone 5 mg x 7 days Then prednisone 2.5 mg x 7 days. (4) SIRS (systemic inflammatory response syndrome): Pericardial fluid culture from his recent admission grew coag negative staph Currently on IV antibiotics until any underlying infectious causes for the initial SIRs criteria can be ruled out Case discussed with ID C Dr. Frederick Payan today that recommended not to restart any antibiotic and recommended if pt develops any fever to seek medical attention Continue monitor (5) Acute worsening of stage 3 chronic kidney disease: Baseline creatinine 1.1, admission BUN/creatinine 21 and 1.65 creatinine 1.1 today Continue monitor (6) Hypomagnesemia: -low serum magnesium of 1.0 on this hospital admission presentation, Received 2 g magnesium in ED -continue scheduled oral magnesium supplements -serum magnesium of 1.9 on 08/11/2020 -replete as needed to target a level close to 2 (7) Persistent atrial fibrillation: Heparin drip was discontinued Eliquis resumed (8) Hypertension: BP stable Will resume Lisinopril on discharge (9) T2DM (type 2 diabetes mellitus): -HbA1c 6.0 07/02/2020, was placed on ICU hyperglycemic protocol -diabetes mellitus generally under control and likely will not require much sliding scale insulin -monitor blood sugars while on prednisone (10) GERD (gastroesophageal reflux disease): continue PPI (11) DVT prophylaxis: On Eliquis Admission and Anticipated Discharge Date Admission Date: August 10, 2020 Subjective Pt was seen and examined Sitting in chair with no distress eating Pt said that he feels much better He said that walked around with no distress he is happy that he will not be needed IV abx on discharge Denies any chest pain, palpitation, dizziness and SOB Physical Exam Physical Exam: General- No acute distress Head- atraumatic Eyes- PERRL, EOMI, ENT- oropharynx clear Neck- supple, no JVD Lungs- No wheezing Heart- No Murmur Abdomen- normal bowel sounds, soft, nontender Extremities- no calf tenderness, No edema Neuro- alert, oriented x 3; PERRL, EOMI; no facial palsy; no dysarthria Skin- warm & dry Results & Data Results & Data ([facility]) Vital Signs (Past 12 Hours) Vital Signs Temp Pulse Resp BP Pulse Ox 08/14/20 11:37 36.5 C 70 19 135/72 96 08/14/20 08:01 36.8 C 64 19 134/78 96 08/14/20 07:30 48 L
--- NOTE | 2020-08-15 09:06 | Discharge Summary ---
Date of Service August 14, 2020 Admission HPI Per Admitting Provider This is a 74-year-old male with significant past medical history of HTN, chronic HFpEF, prediabetes, CKD stage III, left adrenal mass and recent bioprosthetic aortic valve replacement who presents to ED secondary to shortness of breath x3 to 4 days. Of significance patient hospitalized 07/10-07/15 at [facility] secondary to aortic valve replacement due to nonrheumatic aortic insufficiency by Lesli. His hospital course at that time was complicated by AV block, postoperative anemia and urethral stricture requiring Mai catheter placement. This had since been removed. His medication changes on discharge included discontinuation of metoprolol succinate 12.5 mg daily, discontinuation of amlodipine, reduction in lisinopril dosing from 40 mg daily to 5 mg and the addition of potassium chloride 10 mEq daily. Patient was discharged home and unfortunately hospitalized at [facility] [place] from 07/23-07/27 secondary to pericardial tamponade requiring emergent pericardiocentesis with evacuation of 875 mL pericardial fluid secondary to post pericardiotomy syndrome. He was admitted to ICU and treated appropriately with colchicine. He had drain removed on 07/24 and discharged home on 07/27 on Lasix 40 mg daily, colchicine, Eliquis and magnesium supplementation. He has been compliant with colchicine as well as Eliquis. Last dose last evening. He been doing well at discharge until approximately 3 to 4 days ago when shortness of breath return with exertion shortness of breath became more persistent occurring at rest as well as he was orthopneic. He was overall fatigued and decreased appetite and has been c ontinuing to lose weight. He also admits to chills and night sweats. He denies any documented fever, lightheadedness, chest pain, nausea, vomiting, abdominal pain, dysuria, concerns or frequency of urination. He does complain of dry cough, dizziness which he attributes to multiple medications but denies syncope. He further complains of post discharge which has since resolved. He thought this was likely secondary to magnesium. Patient was seen and evaluated in ED by her cardiology team Dr. Cassidy as well as heel buffer/pulmonary Dr. Lozano. He underwent echocardiogram, CT Chest which were reviewed by cardiology team as well as Dr. Ballesteros. Echocardiogram revealed 2 cm pericardial thrombus, EF 70%. CT revealed moderate pericardial effusion as well as bilateral pleural effusions left greater than right. Left side ultrasound done which revealed small left pleural effusion, but likely not the result of shortness of breath. Symptoms felt to be secondary to continued post pericardiotomy syndrome. He received oral dose of colchicine in ED as well as started on IV Solu-Medrol. He also received IV vancomycin and cefepime and blood cultures are pending. Pericardial fluid culture did grow coag negative staph. Admission Exam Per Admitting Provider Constitutional: WD/WN, male, vitals as above, NAD, sitting up in bed, pleasant, conversing easily Head: Normocephalic, Atraumatic Eyes: PERRL, conjunctivae normal, anicteric sclerae ENMT: external ear and nose normal, oropharynx normal Neck: trachea midline, no thyromegaly normal visual inspection Respiratory: normal respiratory effort, lungs clear to auscultation, no wheeze, rales, rhonchi. Normal insp/exp effort, no accessory muscle use Cardiovascular: Irregular rate, irregular rhythm, no edema, no pretibial venous stasis changes noted vessels: no JVD or carotid bruit Chest: Sternal incision noted, left lateral chest wall drain insertion site well-healed, no erythema Abdomen: normal bowel sounds, soft, nontender, no hepatosplenomegaly Musculoskeletal: no cyanosis or clubbing, extremities motor strength 5/5 Skin: no rashes, warm and dry normal turgor Neurologic: PERRL, EOMI, accommodation nl, no face palsy, no dysarthria CN's II-XI intact bilaterally and moves all extremities Psychiatric: A+Ox3, euthymic affect Lymphatic: no cervical or axillary lymphadenopathy : deferred Principal Diagnosis Dyspnea: Pleural effusion, left: Post-pericardiotomy syndrome: SIRS (systemic inflammatory response syndrome): Acute worsening of stage 3 chronic kidney disease: Hypomagnesemia: Persistent atrial fibrillation: Hypertension: T2DM (type 2 diabetes mellitus): Discharge Exam General- No acute distress Head- atraumatic Eyes- PERRL, EOMI, ENT- oropharynx clear Neck- supple, no JVD Lungs- No wheezing Heart- No Murmur Abdomen- normal bowel sounds, soft, nontender Extremities- no calf tenderness, No edema Neuro- alert, oriented x 3; PERRL, EOMI; no facial palsy; no dysarthria Skin- warm & dry Discharge Data Allergies Allergy/AdvReac Type Severity Reaction Status Date / Time adhesive Allergy Mild RASH Verified 08/10/20 08:06 meperidine AdvReac Unknown HALLUCINATI Verified 08/10/20 08:06 ONS Consultations 08/10/20 09:34 Consult Pulmonology Stat 08/10/20 13:05 ED Decision to Admit Stat 08/10/20 13:06 Consult Case Management - Discharge Planning Routine Consult Web Press Roll Tender Routine 08/10/20 13:20 Consult Cardiology Stat 08/10/20 14:27 Consult Infectious Diseases Routine Ordered Studies 08/10/20 08:08 US point of care ultrasound Stat 08/10/20 10:01 US point of care ultrasound Urgent 08/10/20 10:30 US venous doppler LE BI Urgent 08/10/20 11:05 CT chest w con Stat 08/12/20 07:45 US point of care ultrasound Urgent SINGLE VIEW CHEST CLINICAL HISTORY: Status post thoracentesis attempt. FINDINGS: An AP, portable, upright chest radiograph is compared to chest x-ray and chest CT dated 08/10/2020. The patient is status post midline sternotomy. The heart is enlarged noting atherosclerotic calcification of the thoracic aorta. The pulmonary vasculature is noncongested. There are left larger than right pleural effusions with associated left basilar consolidation. No pneumothorax is seen. The skeletal structures are osteopenic. The bony thorax is grossly intact. IMPRESSION: 1. Cardiomegaly without radiographic evidence of congestive failure. 2. Left larger than right pleural effusions with left basilar consolidation. This is unchanged from 08/10/2020. 3. No pneumothorax is identified post procedure. ACT 112: Negative or not required by law. Electronically signed by: Young Moss M.D. 08/12/2020 3:34 PM Dictated: 08/12/20 1532Transcribed: 08/12/[address] SCAN OF THE CHEST WITH IV CONTRAST CLINICAL HISTORY: Dyspnea. Pleural effusions. COMPARISON STUDY: Chest x-ray dated 08/10/2020. TECHNIQUE: Following the IV administration of 94 cc of Optiray 320, CT scan of the thorax was performed from the thoracic inlet to the upper abdomen. Images are reviewed in the axial, sagittal, and coronal planes. IV contrast was administered without complication. A dose lowering technique was utilized adhering to the principles of ALARA. CT DOSE: 631.78 mGycm FINDINGS: Thyroid: Imaged portions of the thyroid gland are normal in size and attenuation. Thoracic aorta: There is mild atherosclerotic calcification of the thoracic aorta, which is normal in caliber and demonstrates standard 3-vessel arch anatomy. No dissection is seen. Pulmonary vasculature: The pulmonary trunk is normal in caliber. There are no filling defects identified in the central pulmonary vessels to indicate pulmonary embolus. Note that this examination was not protocoled for evaluation of the pulmonary arteries. Heart: The patient is status post midline sternotomy. The heart is enlarged noting a moderate and minimally complex pericardial effusion. There is mild pericardial thickening and enhancement. There is evidence of aortic valve surgery. There are coronary artery calcifications. Lungs and pleural spaces: Evaluation of the lung parenchyma is degraded by motion artifact. The trachea and central airways are clear. There is a small right pleural effusion with associated atelectasis. The right lung is otherwise clear. There is a small to moderate and at least partially loculated left pleural effusion with associated left basilar atelectasis. Loculated fluid tracks to the left apex and along the left major fissure. No airspace consolidation is seen typical for pneumonia. Mediastinum: Scattered subcentimeter mediastinal lymph nodes are not pathologically enlarged by size criteria. Andreina: Clear. Axillae: There is no axillary lymphadenopathy. Upper abdomen: There is a moderate hiatal hernia. Cholecystectomy clips are noted. There is a 2.2 cm indeterminate left adrenal nodule Skeletal structures: The skeletal structures are osteopenic. No lytic or blastic bony lesions are seen. IMPRESSION: 1. Cardiomegaly with evidence of previous aortic valve surgery. 2. There is a moderate and minimally complex pericardial effusion. 3. There is associated pericardial thickening and enhancement. Correlate clinically for evidence of pericarditis. 4. There is a small to moderate and at least partially loculated left pleural effusion. A small pleural effusion is also seen on the right. 5. Additional findings as above. ACT 112: Negative or not required by law. Electronically signed by: Young Moss M.D. 08/10/2020 12:23 PM Dictated: 08/10/201216Transcribed: 08/10/201216 BILATERAL LOWER EXTREMITY VENOUS DOPPLER HISTORY: Acute pain and swelling of the lower extremities post open heart surgery,SOB,r/o DVT COMPARISON STUDY: None. FINDINGS: There is normal compressibility, flow, and augmentation within the bilateral lower extremity deep venous systems. IMPRESSION: No DVT within the right or left lower extremity. ACT 112: Negative or not required by law. Electronically signed by: Fernando Burch M.D. 08/10/2020 12:05 PM Dictated: 08/10/205Transcribed: 08/10/20 1205 XR chest 1V portable HISTORY: SEPSIS COMPARISON: Chest 07/27/2020. FINDINGS: No pneumothorax. The heart remains mildly enlarged. There are postster notomy changes. Slight increase in size in the small to moderate left pleural effusion and right lung is clear. IMPRESSION: Increase in size in the small to moderate left pleural effusion. ACT 112: Negative or not required by law. Electronically signed by: Ben Hightower M.D. 08/10/2020 9:09 AM Dictated: 08/10/20855Transcribed: 08/10/20855 Hospital Course (1) Dyspnea: (2) Pleural effusion, left: Present on admission with worsening SOB CXR on admission showed increase in size in the small to moderate left pleural effusion. Echocardiogram and chest CT revealed pericardial effusion, but improved. Initially admitted to ICU from the ED, Received IV Solu-Medrol 6 mg in ED, Received 40 mg IV Lasix in ED, started on antibiotics Pericardial fluid sample from last month positive for Coag neg staph not lugdunensis. Pt said that he did not complete any course of abx Received antibiotics of cefepime and Vancomycin I was planning to discontinue the Vanco and transition to Doxycycline or clindamycin, but I discussed the case with ID in [place] Recommended to treat it since the sample was collected from a sterile site and will required 2 to 4 weeks abx and will probably need IV abx Will continue renal dose IV Vanco for now until evaluate by ID Thoracentesis attempted today by Pulmonology but failed after 3 trials Repeat CXR today showed left larger than right pleural effusions with left basilar consolidation. This is unchanged from 08/10/2020. Cardiology recommended to increase Lasix to 60mg daily on discharge (3) Post-pericardiotomy syndrome: Presence of Bioprosthetic Aortic Valve -previous history of aortic valve replacement with [facility] in [place] and then subsequent hospitalization at [facility] from 07/23/2020 to 07/27/2020 hospitalization for complication of cardiac tamponade with emergent pericardiocentesis and evacuation of 875 mL serosanguineous fluid Patient was treated symptomatically with colchicine. he reports denies use of ibuprofen which was prescribed as prn if chest discomforts not alleviated by colchicine because he generally did not have acute chest pains Pericardial fluid sample on 07/23 positive for Coag neg staph not lugdunensis. Reviewed epic chart showed patient had a consult with [facility] Evelia on 08/10 that we we missed that did not show in the [facility] EMR chart by Dr. Rommel Payan. Dr. Frederick Payan at that time recommended to discontinue the IV Vanco for possible contamination case discussed with [facility] Dr. Frederick Payan today that recommended not to start any antibiotic. recommended if pt develops any fever to seek medical attention Continue oral prednisone and colchicine Cardiology recommended Colchicine 0.6 mg twice daily and a long slow taper of prednisone. Continue 30 mg x 3 more days at discharge. Then prednisone 20 mg daily, x 7 days Then prednisone 10 mg daily x7 days Then prednisone 5 mg x 7 days Then prednisone 2.5 mg x 7 days. (4) SIRS (systemic inflammatory response syndrome): Pericardial fluid culture from his recent admission grew coag negative staph Currently on IV antibiotics until any underlying infectious causes for the initial SIRs criteria can be ruled out Case discussed with ID [facility] Dr. Frederick Payan today that recommended not to restart any antibiotic and recommended if pt develops any fever to seek medical attention Continue monitor (5) Acute worsening of stage 3 chronic kidney disease: Baseline creatinine 1.1, admission BUN/creatinine 21 and 1.65 creatinine 1.1 today Continue monitor (6) Hypomagnesemia: -low serum magnesium of 1.0 on this hospital admission presentation, Received 2 g magnesium in ED -continue scheduled oral magnesium supplements -serum magnesium of 1.9 on 08/11/2020 -replete as needed to target a level close to 2 (7) Persistent atrial fibrillation: Heparin drip was discontinued Eliquis resumed (8) Hypertension: BP stable Will resume Lisinopril on discharge (9) T2DM (type 2 diabetes mellitus): -HbA1c 6.0 07/02/2020, was placed on ICU hyperglycemic protocol -diabetes mellitus generally under control and likely will not require much sliding scale insulin -monitor blood sugars while on prednisone (10) GERD (gastroesophageal reflux disease): continue PPI (11) DVT prophylaxis: On Eliquis Total Time Total Time Spent Total Time Spent (In Minutes): 35 minutes Total Time Includes: Examination of the Patient, Discharge Planning, Medication Reconciliation, Communication With Other Providers and Other Discharge Plan Discharge Items Patient Disposition: Home - Home Health Services Reason For Visit: SOB,PERICARDITIS Discharge Diagnosis: Dyspnea: Pleural effusion, left: Post-pericardiotomy syndrome: SIRS (systemic inflammatory response syndrome): Acute worsening of stage 3 chronic kidney disease: Hypomagnesemia: Persistent atrial fibrillation: Hypertension: T2DM (type 2 diabetes mellitus): Activity: Resume your previous activity Non-emergency contact: Primary Care Provider Call non-emergency contact if: you have any medication questions and your temperature is above 101 Follow-up/Referrals: Justen Ewing DO [Primary Care Provider] - 08/18/20 3:00 pm (Date & Time 08/18/2020 3:00 PM Provider Justen Ewing DO Department General Internal Medicine [facility] ) Diet: Heart Healthy Addtl Attending Provider Instructions: Follow up with your primary care provider Dr. Ewing on 08/18/2020 3:00 PM Follow up with cardiology Dr. Cassidy/Dr. Olvera or Jackie ZHOU (office will call you for the appointment) Follow up with your cardiothoracic surgeon Dr. Ballesteros (Office will call you for the appointment) Lasix increased to 60mg daily Seek medical attention if you develop any fever Continue prednisone slow taper course: Continue 30 mg x 2 more days Then prednisone 20 mg daily, x 7 days Then prednisone 10 mg daily x7 days Then prednisone 5 mg x 7 days Then prednisone 2.5 mg x 7 days. Pending Studies at Discharge: No Stand-Alone Forms: My [employer], Smoking Cessation Medications and DC Order Prescriptions: New prednisone 5 mg tablet 5 mg PO UD Qty: 65 RF: 0 Continued potassium chloride 10 mEq Tablet Extended Release 10 meq PO QAM RF: 0 fluticasone propionate 50 mcg/actuation [place],Suspension 1 spray INTRANASAL BID RF: 0 oxycodone 5 mg Tablet 5 mg PO Q4H PRN (Reason: Pain) RF: 0 latanoprost 0.005 % Drops 1 drp OPB HS RF: 0 ascorbic acid (vitamin C) [Vitamin C] 500 mg Tablet 500 mg PO QAM RF: 0 albuterol sulfate 90 mcg/actuation Hfa Aerosol Inhaler 2 puff INHALATION QID PRN (Reason: sob) RF: 0 cholecalciferol (vitamin D3) 25 mcg (1,000 unit) Capsule 25 mcg PO QAM RF: 0 omega-3 fatty acids-fish oil 684-1,200 mg Capsule,Delayed Release(Dr/Ec) 1 cap PO QAM RF: 0 ginkgo biloba 40 mg Tablet 40 mg PO QAM RF: 0 docusate sodium [Colace] 100 mg Capsule 100 mg PO QAM RF: 0 calcium citrate-vitamin D3 [Calcium Citrate + D] 315 mg-5 mcg (200 unit) Tablet 1 tab PO QAM RF: 0 Glucosamine Chondroitin 550-30-1 mg Capsule 1 cap PO QAM RF: 0 colchicine [Colcrys] 0.6 mg Tablet 0.6 mg PO BID 30 Days Qty: 60 RF: 0 Eliquis 5 mg Tablet 5 mg PO BID 30 Days Qty: 60 RF: 0 pantoprazole 40 mg Tablet,Delayed Release (Dr/Ec) 40 mg PO BID 30 Days Qty: 60 RF: 0 lisinopril [Zestril] 5 mg tablet 5 mg PO QAM RF: 0 multivitamin Tablet 1 tab PO QAM RF: 0 Changed furosemide 40 mg Tablet 60 mg PO QAM 30 Days Qty: 45 RF: 0 Discharge Orders: Discharge Order (Routine); Ordered 08/14/20 Ordered By: Rohith Turcios/Other Patient Handouts: Pericarditis Admission Data Admit Date/Time: 08/10/20 13:06 Attending Provider: Rohith Martinez Admit Provider: Ivelisse Joya Primary Care Provider: Justen Ewing Other Providers: Charo Lozano ; Ivelisse Joya ; Young Cassidy ; Rommel Thomason ; Lacho Tse ; Paul Sahu I. ; John Paul Ta II ; Danelle Hussein ; Fabian Silva ; [facility] Other Interventions: Discharge Summary Assessment (RN) Last Done: 08/14/20 15:50
== END 2020-08-14 16:14 | disposition home health service (06) | DRG 270 ==
LOC: ED 07:35 → 1E 13:06 → SUATTDRO 13:06 → 1E 14:01 → 2S 08-11 12:55

== ENCOUNTER 2020-11-13 12:08 | Observation (INO) ==
--- NOTE | 2020-11-13 13:18 | Pre Anesthesia Assessment ---
Date of Service November 13, 2020 Pre Sedation Assessment Vital Signs Temp Pulse Resp BP Pulse Ox 11/13/20 12:19 36.6 C 90 16 128/81 95 Cardiovascular + regular rhythm Respiratory normal respiratory effort, lungs clear to auscultation Pre-Sedation Airway Assessment Smoking Status: Former smoker Hx Sleep Apnea: No Hx Difficult Intubation: No Short, Thick Neck: No Thyromental Distance: > or= 3.5 Finger Breadths Oral Cavity: + WNL Mallampati Class: IV ASA: ASA3 NPO Status Date of Last Intake of Fluids: 11/13/20 Time of Last Intake of Fluids: 08:30 Last Oral Intake of Fluids Comment: sip with meds Date of Last Intake of Solid Food: 11/12/20 Time of Last Intake of Solid Foods: 22:00 Procedure Planning Contraindications for Sedation: none Current Medications Reviewed: Yes Notes The planned sedation has been discussed with the patient. Informed Consent was obtained. I have identified the patient, determined the appropriateness of sedation and have assessed the patient immediately prior to the procedure. All medicine(s) and interventions are by my order.
--- NOTE | 2020-11-13 13:18 | History & Physical Bridge Note ---
Date of Service November 13, 2020 History & Physical Bridge Note I have examined the patient, reviewed the History & Physical and in the interval since the performance of the History & Physical I have noted the following changes of clinical significance: no changes noted
[2020-11-13] MEDS ORDERED: LIDOCAINE HCL 1% 20 ML VIAL ONE (14:11)
[2020-11-13] MEDS ORDERED: MIDAZOLAM HCL 5 MG/ML 1 ML VIAL ONE ×2 (14:11→15:29)
[2020-11-13] MEDS ORDERED: BUPIVACAINE 0.25% 30 ML VIAL ONE (14:11)
[2020-11-13] MEDS ORDERED: BACITRACIN INJ 50,000 UNIT VIAL ONE (14:11)
[2020-11-13] MEDS ORDERED: fentaNYL citrate 100 MCG/2 ML VIAL ONE ×2 (14:11→15:16)
--- NOTE | 2020-11-13 16:58 | Post Anesthesia Assessment ---
Date of Service November 13, 2020 Post Sedation Assessment Vital Signs Temp Pulse Resp BP Pulse Ox 11/13/20 12:19 36.6 C 90 16 128/81 95 Recovery Score Activity: Moves 4 extremities Respiration: Deep Breath/Cough Circulation: +/-20% PreAnes Value Consciousness: Fully Awake Oxygen Saturation: > 92% On Room Air Discharge Sedation Level of Care: Fast Track Phase II Post Sedation Plan On clinical assessment, the patient appears to have tolerated the sedation without complications. Patient is recovering as anticipated. Patient will continue to be monitored by nursing and may be discharged when sedation discharge criteria are met per below protocol. Upon Completions of procedure up to 15 minutes continue every 5 minute vital signs and the P.A.R. score; then discharge to a Phase I or Fast Track to Phase II per the following guidelines: * Discharge Patient to appropriate Phase II area if PAR is 8 or greater or return to pre- procedure baseline. The post - procedure orders will be as directed. * If PAR score is less than 8 or not return to pre-procedure baseline then patient will follow Phase I monitoring till PAR is reached for Phase II. The Phase I may be done in procedure room or may call to secure a Phase I area. * If naloxone or flumazenil are used for reversal, hold in Phase I for continued monitoring from when last reversal dose was given for a minimum of 60 minutes or longer pending the nurse and/or physician discretion of patient condition before discharge to Phase II. Please call the Sedation Physician to re-evaluate and complete post-note for discharge to Phase II area. Do NOT discharge from procedure sedation or Phase 1 until post- sedation evaluation note is complete by procedure /sedation MD Sedation Discharge Instructions to be given to the patient at discharge to home.
--- NOTE | 2020-11-13 16:59 | Operative Report ---
Post Operative Report Pre & Post Diagnosis intermittent CHB Operation Date: 11/13/20 13:00 <No data on this case meets the specified criteria> I identified the patient and participated in the time-out.: Yes Procedure Operation Date: 11/13/20 13:00 Actual Procedures p Pacer with A/V Leads (Dual) - Bridget Trivedi DO s Bundle of his Recording - DO corinne Neves Venogram, Unilateral - Bridget Trivedi DO Surgeon Bridget Trivedi, [employer] Operator none Estimated Blood Loss 40 Findings Consistent with Post-Op Diagnosis Specimens none Description of Procedure see official report I attest to the content of the Intraoperative Record and any orders documented therein. Any exceptions are noted below.
[2020-11-13] MEDS ORDERED: oxyCODONE/ACETAMINOPHEN 5mg/325mg TAB PO PRN (17:00)
[2020-11-13] MEDS ORDERED: ACETAMINOPHEN 325 MG TAB PO PRN (17:00)
[2020-11-13] MEDS ORDERED: oxyCODONE IR HOME PACK PO PRN (17:01)
--- NOTE | 2020-11-13 17:12 | Discharge Summary ---
Date of Service November 14, 2020 Admission HPI Per Admitting Provider Pt admitted for elective ppm Admission Exam Per Admitting Provider aaox3, NAD NC/AT, EOMI Supple No JVD Nrl S1/S2, No murmur CTA b/l no w/r/r soft nt/nd no LE edema b/l skin intact no focal deficits Principal Diagnosis intermittent CHB s/p ppm Discharge Exam aaox3, NAD NC/AT, EOMI Supple No JVD Nrl S1/S2, No murmur CTA b/l no w/r/r soft nt/nd no LE edema b/l skin intact no focal deficits left pectoral incision intact, no hematoma mild ecchymosis Discharge Data Allergies Allergy/AdvReac Type Severity Reaction Status Date / Time adhesive Allergy Mild RASH Verified 11/13/20 12:32 meperidine AdvReac Unknown HALLUCINATI Verified 11/13/20 12:32 ONS Procedures Performed Operation Date: 11/13/20 13:00 Actual Procedures p Pacer with A/V Leads (Dual) - DO corinne Neves Bundle of his Recording - Bridget Trivedi DO s Venogram, Unilateral - Bridget Trivedi DO Ordered Studies 11/13/20 07:45 EP Lab Images for PACS ONCE Hospital Course (1) Intermittent complete heart block: Pt admitted for elective ppm due to intermittent CHB; s/p ppm without any complications; monitored overnight; started on toprol Total Time Total Time Spent Total Time Spent (In Minutes): 40 Total Time Includes: Examination of the Patient, Discharge Planning, Medication Reconciliation and Other Discharge Plan Discharge Items Patient Disposition: Home - Self-Care Reason For Visit: Intermittent AV Block Discharge Diagnosis: Intermittent CHB s/p ppm Activity: As commented below Activity Comment: do not raise the left elbow over the left shoulder for 1 month Lifting: No more than 10 pounds Lifting Comment: do not lift more than 10 pounds with the left arm for 2 weeks Bathing: Keep incision dry Bathing Comment: keep dressing on and dry until wound check next week Sexual Activity: After two weeks Non-emergency contact: Primary Care Provider Call non-emergency contact if: you have any medication questions Follow-up/Referrals: Justen Ewing DO [Primary Care Provider] - 11/18/20 4:00 pm Diet: Heart Healthy Addtl Attending Provider Instructions: Device and wound check as scheduled next week at [facility] Pending Studies at Discharge: No Stand-Alone Forms: My [facility] Medications and DC Order Prescriptions: New metoprolol succinate 25 mg Tablet Extended Release 24 Hr 25 mg PO QAM 30 Days Qty: 30 RF: 0 Continued potassium chloride 10 mEq Tablet Extended Release 10 meq PO QAM RF: 0 fluticasone propionate 50 mcg/actuation [place],Suspension 1 spray INTRANASAL BID RF: 0 oxycodone 5 mg Tablet 5 mg PO Q4H PRN (Reason: Pain) RF: 0 latanoprost 0.005 % Drops 1 drp OPB HS RF: 0 ascorbic acid (vitamin C) [Vitamin C] 500 mg Tablet 500 mg PO QAM RF: 0 albuterol sulfate 90 mcg/actuation Hfa Aerosol Inhaler 2 puff INHALATION QID PRN (Reason: sob) RF: 0 cholecalciferol (vitamin D3) 25 mcg (1,000 unit) Capsule 25 mcg PO QAM RF: 0 omega-3 fatty acids-fish oil 684-1,200 mg Capsule,Delayed Release(Dr/Ec) 1 cap PO QAM RF: 0 ginkgo biloba 40 mg Tablet 40 mg PO QAM RF: 0 docusate sodium [Colace] 100 mg Capsule 100 mg PO QAM RF: 0 calcium citrate-vitamin D3 [Calcium Citrate + D] 315 mg-5 mcg (200 unit) Tablet 1 tab PO QAM RF: 0 Glucosamine Chondroitin 550-30-1 mg Capsule 1 cap PO QAM RF: 0 lisinopril [Zestril] 5 mg tablet 5 mg PO QAM RF: 0 multivitamin Tablet 1 tab PO QAM RF: 0 furosemide 40 mg Tablet 60 mg PO QAM 30 Days Qty: 45 RF: 0 prednisone 5 mg tablet 5 mg PO UD Qty: 65 RF: 0 latanoprost 0.005 % Drops 1 drp OPHTHALMIC (EYE) DAILY RF: 0 pantoprazole [Protonix] 40 mg Tablet,Delayed Release (Dr/Ec) 40 mg PO BID RF: 0 colchicine 0.6 mg Tablet 0.6 mg PO BID RF: 0 apixaban 5 mg Tablet 5 mg PO BID RF: 0 magnesium oxide 400 mg magnesium Tablet 400 mg PO DAILY RF: 0 Discharge Orders: Discharge Order (Routine); Ordered 11/14/20 Ordered By: Ag Brady Admission Data Admit Date/Time: 11/13/20 15:49 Attending Provider: Bridget Trivedi Admit Provider: Bridget Trivedi Primary Care Provider: Justen Ewing Other Interventions: Discharge Summary Assessment (RN) Last Done: 11/14/20 10:31
[2020-11-13] MEDS: PANTOprazole 40 MG TAB PO SCH (20:00)
[2020-11-13] MEDS: COLCHICINE 0.6 MG TAB PO SCH (20:01)
[2020-11-13] MEDS: FLUTICASONE PROPIONATE NA SPR 16 GM BTL NAE SCH (20:01)
[2020-11-14 07:56] LABS: Creatinine Clr Calc Pharmacy 56.2 ml/min; Est GFR (African American) 65.3; Est GFR (Non-African American) 56.4
[2020-11-14] MEDS: FLUTICASONE PROPIONATE NA SPR 16 GM BTL NAE SCH (08:12)
[2020-11-14] MEDS: COLCHICINE 0.6 MG TAB PO SCH (08:13)
[2020-11-14] MEDS: PANTOprazole 40 MG TAB PO SCH (08:13)
[2020-11-14] MEDS ORDERED: CHOLECALCIFEROL 1,000 UNITS 25 MCG TAB PO SCH (09:00)
[2020-11-14] MEDS ORDERED: LATANOPROST 0.005% OP SOLN 2.5 ML BTL OP SCH (09:00)
[2020-11-14] MEDS ORDERED: ASCORBIC ACID 500 MG TAB PO SCH (09:00)
[2020-11-14] MEDS ORDERED: APIXABAN 5 MG TABLET PO SCH (09:00)
[2020-11-14] MEDS ORDERED: POTASSIUM CHLORIDE 10 MEQ TABCR PO SCH (09:00)
[2020-11-14] MEDS ORDERED: NON-FORMULARY MEDICATION (Glucos Sul 2kcl-Msm-Chond-C-Mn [Glucosamine Chondroitin] 550-30- PO SCH (09:00)
[2020-11-14] MEDS ORDERED: GINKGO BILOBA 40 MG PO SCH (09:00)
[2020-11-14] MEDS ORDERED: CALCIUM 600MG + VIT D 400 IU TAB PO SCH (09:00)
[2020-11-14] MEDS ORDERED: DOCUSATE SODIUM 100 MG CAP PO SCH (09:00)
[2020-11-14] MEDS ORDERED: OMEGA-3 (PURIFIED FISH OIL) 1 GM CAP PO SCH (09:00)
[2020-11-14] MEDS ORDERED: lisinopril 5 MG TAB PO SCH (09:00)
[2020-11-14] MEDS ORDERED: METOPROLOL SUCC 25MG EXT REL TAB PO SCH (09:00)
[2020-11-14] MEDS ORDERED: FUROSEMIDE 40 MG TAB PO SCH (09:00)
[2020-11-14] MEDS ORDERED: MAGNESIUM OXIDE 400 MG TAB PO SCH (09:00)
--- NOTE | 2020-11-14 10:22 | Communication Note ---
Date of Service: November 14, 2020 The patient had an uneventful night. The pacemaker checked this morning was adequate. All questions were answered. Patient has a follow-up appointment with Dr. Elliott next week which she will keep. The patient is ready for discharge.
--- NOTE | 2020-11-15 13:20 | Operative Report (OR) ---
DATE OF OPERATION: 11/13/2020 PREOPERATIVE DIAGNOSIS: Intermittent complete heart block. POSTOPERATIVE DIAGNOSIS: Intermittent complete heart block. PROCEDURE: Dual chamber rate responsive permanent pacemaker under fluoroscopic guidance along with peripheral venogram and intracardiac electrogram mapping of the His bundle region. SURGEON: Bridget Trivedi DO. ASSISTANTS: None. ANESTHESIA: Monitored conscious sedation administered under my supervision by Meenakshi Coello. Start time 1453, end time 1648. A total of 8 mg of Versed, 200 mcg of fentanyl. INTRAVENOUS FLUIDS: 160 mL. ANTIBIOTICS: Two grams of Ancef. CONTRAST: 20 mL. BLOOD LOSS: 30 mL. URINE OUTPUT: Not applicable. SPECIMENS: None. FINDINGS: See below. DRAINS: None. INDICATIONS: This is a 75-year-old gentleman with past medical history for aortic insufficiency, status post minimally invasive AVR 23 mm Epic valve by Dr. Ballesteros on 07/10/2020. Postoperative complications were anemia as well as urethral stricture where he required a Mai as well as junctional rhythm and his beta blockers were held in addition to 1 month postop pericardial effusion with tamponade requiring urgent pericardiocentesis and a month later, he had pericardotomy, chronic heart failure, [place] Heart Association class 2-3 diastolic dysfunction, hypertension, hyperlipidemia, chronic kidney disease stage III, carotid artery stenosis, prediabetic, osteoarthritis, and gastroesophageal reflux disease. He has been having intermittent complete heart block and was recommended a pacemaker. CONSENT: Consent was obtained prior to the patient going into electrophysiology lab. The patient was informed of the risks, benefits and alternative procedure. Risks include but not limited to sudden cardiac , cardiac arrhythmia, cerebrovascular accident, myocardial infarction, injury to the blood vessels, chamber of the heart, lung, bleeding, and infection. The patient understood these risks and agreed with procedure as planned. Informed consent was obtained. DESCRIPTION OF THE PROCEDURE: The patient was brought into the electrophysiology lab in a fasting state. He was connected to continuous surveillance monitor. Timeout was performed to ensure patient identity and procedure correctly. The patient was prepped and draped over the left infraclavicular space in normal surgical standard fashion. Monitored conscious sedation was given throughout the procedure for patient's comfort level. [place]aton precautions maintained throughout the procedure. He received prophylactic antibiotics prior to incision. 10 mL of 1% lidocaine, bupivacaine mixture were given in the left deltopectoral groove. Incision was made in left deltopectoral groove. Blunt dissection performed down to identify cephalic vein and cephalic vein was identified, so peripheral venogram using IV contrast was performed which identified the axillary vein. Venous axillary access was obtained through a needlestick. A guidewire was inserted without any resistance. A 7-Chadian sheath was inserted over the guidewire without any resistance. Dilator removed. Second guidewire was inserted through the sheath to allow for retained venous access. Then an 8-Chadian SafeSheath was inserted over one of the guidewires. Guidewire and dilator removed. Then the His bundle sheath was advanced into the right ventricle over a Glidewire. The Glidewire and dilator were removed. Then, the pacing lead was advanced through the sheath and intracardiac electrogram mapping was performed of the His bundle region. Then with the fluoroscopy camera moved to BAUMAN 30, I marked where the His area was, then came 2 cm down from that in the line that would extend out to the right ventricular apex and marked that on my fluoroscopy screen. Then I started positioning the His sheath and the lead down into that lower mary about 2 cm from the His and then started screwing in the lead in CIARRA 30, there was a good W pattern in my QRS complex in V1 as I was screwing in. Unfortunately, when I slit the sheath, the lead pulled back and dislodged, so we repositioned the lead. This time I was a little bit lower. Again, had a good W formed my QRS morphology in V1 and as I screwed in the lead pausing to see the morphology I watched the QRS notch move to end of the complex and my pacing stimulation to QRS peak in V6 sure end then I did a venogram to see how far into the septum I was. Then the His sheath was slit under fluoroscopic guidance. Then I kept an 8-Chadian SafeSheath in and I over the retained guidewire put the 7-Chadian SafeSheath and removed the guidewire and dilator. Then, the right atrial lead was advanced into right appendage under fluoroscopic guidance. There was adequate pacing and sensing thresholds and no diaphragmatic stimulation with high output pacing. The 7-Chadian sheath was peeled away and lead was fixated to pectoralis muscle using 0 silk suture. I put a pursestring around the puncture site to prevent any further backbleeding. Then I slit the 8-Chadian SafeSheath that was over the left bundle lead and then secured the lead to the pectoralis muscle using 0 silk suture. Additional 1% lidocaine was given for local anesthesia. Then, the pacemaker pocket was created using blunt dissection over the pectoralis muscle within the pectoralis fascia. The pocket was flushed with copious amount of bacitracin saline wash and inspected for hemostasis. Pulse generator was then attached to leads making sure the pins were in appropriate position, passed set screw and set screws were all tightened. Pulse generator was then placed in the antibiotic pouch followed then by being placed in the pocket, making sure the leads were lying flat beneath the device. Incision was closed in a 3-layer fashion with 2-0 Vicryl interrupted suture followed by 3-0 Vicryl interrupted suture, followed by 4-0 Monocryl running stitch and Dermabond was applied followed by Telfa and micropore dressing. EQUIPMENT: 1. Pulse generator is a [employer] Cur[employer] Loa XT DR ALLEN Monique [id number], serial number [id number]. 2. The Tyrx pouch reference [id number], lot number [id number], expiration 05/20/2021. 3. Right atrial lead Medtronic 5076-52 cm, serial number [id number]. 4. Left bundle lead, Medtronic 3830-69 cm, serial number [id number]. INTRAOPERATIVE TESTIN. The AH was 230 milliseconds, HV was 52 milliseconds. 2. Right atrial lead: P-wave 2.6 millivolts, impedance 713 ohms, threshold 0.8 volts at 0.4 milliseconds. 3. Left bundle lead: R waves 14.4 millivolts, impedance 751 ohms, threshold 0.4 volts at 0.4 milliseconds. FINAL MEASUREMENTS THROUGH THE DEVICE: 1. Right atrial lead: P-wave 3.8 millivolts, impedance 684 ohms, threshold 0.5 volts at 0.4 milliseconds. 2. Left bundle lead: R waves 17.6 millivolts, impedance 665 ohms, threshold 0.5 volts at 0.4 milliseconds. FINAL PARAMETERS: MVP-R 60/130, right atrial amplitude 3.5 volts, pulse width 0.4 milliseconds, sensitivity 0.3 millivolts. Right ventricular amplitude 3.5 volts, pulse width 0.4 milliseconds, sensitivity 1.2 millivolts. IMPRESSION: Successful dual chamber rate responsive permanent pacemaker with peripheral venogram and intracardiac electrogram mapping of the His bundle region secondary to intermittent complete heart block. PLAN: Monitor patient overnight, 12-lead ECG, chest x-ray. He cannot lift the left elbow or left shoulder for 1 month. He cannot lift more than 10 pounds with the left arm for 2 weeks. He is to keep the dressing on and dry until his wound check next week and he can continue his medications. We will start him on metoprolol. I attest to the content of the Intraoperative Record and any orders documented therein. Any exception s are noted below.
== END 2020-11-14 11:06 | disposition home or self-care (01) ==
LOC: EP 12:08 → 2S 12:08

== ENCOUNTER 2024-07-18 18:55 | Inpatient (IN) ==
[2024-07-18 19:52] LABS: Basophils # (auto) 0.01 K/uL (0.00-0.20); Basophils % (auto) 0.1 %; Eosinophils # (auto) 0.02 K/uL (0.00-0.50); Eosinophils % (auto) 0.2 %; Hematocrit (blood only) 35.1 % (42.0-52.0); Hemoglobin 12.1 g/dl (14.0-18.0); Immature Granulocytes # (auto) 0.03 K/uL (0.01-0.20); Immature Granulocytes % (auto) 0.3 %; Lymphocytes # (auto) 0.65 K/uL (1.20-3.40); Lymphocytes % (auto) 6.5 %; Mean Corpuscular Hemoglobin 29.9 pg (25.0-34.0); Mean Corpuscular Hgb Conc 34.5 g/dL (32.0-36.0); Mean Corpuscular Volume 86.7 fL (80.0-100.0); Mean Platelet Volume 9.8 fL (9.4-12.4); Monocytes # (auto) 1.01 K/uL (0.11-0.59); Monocytes % (auto) 10.1 %; Neutrophils # (auto) 8.27 K/uL (1.40-6.50); Neutrophils % (auto) 82.8 %; Platelet Count 226 K/uL (130-400); RDW Coefficient of Variation 13.4 % (11.5-14.5); RDW Standard Deviation 42.7 fL (36.4-46.3); Red Blood Count 4.05 M/uL (4.70-6.10); White Blood Count 9.99 K/ul (4.8-10.8)
[2024-07-18 20:10] LABS: Albumin Globulin Ratio 1.1 (0.9-2); Albumin Level 3.6 gm/dl (3.4-5.0); BUN Creatinine Ratio 16.3 (10-20); Bilirubin,Total 1.8 mg/dl (0.2-1.0); Calcium 9.2 mg/dl (8.6-10.3); Creatinine Clr Calc Pharmacy 44.3 ml/min; Globulin 3.2 gm/dl (2.5-4.0); Potassium 3.7 mmol/L (3.5-5.1); Total Protein 6.8 gm/dl (6.0-8.3)
[2024-07-18 20:18] LABS: INR 1.2 (0.9-1.1); Partial Thromboplastin Ratio 1.3; Partial Thromboplastin Time 34 Seconds (21-31); Prothrombin Time 13.2 Seconds (9.0-12.0)
[2024-07-18 20:33] LABS: Adenovirus PCR Not Detected (NotDetected); Bordetella parapertussis PCR Not Detected (NotDetected); Bordetella pertussis PCR Not Detected (NotDetected); Chlamydia pneumoniae PCR Not Detected (NotDetected); Coronavirus 229E PCR Not Detected (NotDetected); Coronavirus CoV-2 (COVID19)PCR Not Detected (NotDetected); Coronavirus HKU1 PCR Not Detected (NotDetected); Coronavirus NL63 PCR Not Detected (NotDetected); Coronavirus OC43PCR Not Detected (NotDetected); Human Metapneumovirus PCR Not Detected (NotDetected); Influenza A PCR Not Detected (NotDetected); Influenza B PCR Not Detected (NotDetected); Mycoplasma pneumoniae PCR Not Detected (NotDetected); Parainfluenza Virus 1 PCR Not Detected (NotDetected); Parainfluenza Virus 2 PCR Not Detected (NotDetected); Parainfluenza Virus 3 PCR Not Detected (NotDetected); Parainfluenza Virus 4 PCR Not Detected (NotDetected); Respiratory Syncytial VirusPCR Not Detected (NotDetected); Rhinovirus/Enterovirus PCR Not Detected (NotDetected)
--- NOTE | 2024-07-18 21:12 | Emergency Department Note ---
Impression & Plan Pneumonia, Chest pain, Elevated troponin I level ED Provider Note NAME: NURYS FRANCO AGE: 78 SEX: M : 1945 ARRIVES VIA: Walk-In INFORMANT: Patient, ED PROVIDER(S): Steve Mooney DO CHIEF COMPLAINT: Cough HPI: The patient is a 78-year-old male who presented to the emergency department for an evaluation of cough. The patient states has had cough and not feeling well over the course the last 4 to 5 days. He was seen as an outpatient today and diagnosed with pneumonia. He was told to come to the emergency department immediately for further evaluation. The patient has been describing flulike symptoms over the last few weeks. He also describes chest tightness and difficulty breathing. He has been compliant with his outpatient medications. He does take a blood thinner. He is on multiple cardiac medications as well. He is noticing decreased urine output but no lower extremity swelling greater than usual. ROS: See above HPI for pertinent positives & negatives. A total of 10 systems reviewed and were otherwise negative. PAST MEDICAL HISTORY: See Below PAST SURGICAL HISTORY: See Below FAMILY HISTORY: See Below SOCIAL HISTORY: See Below HOME MEDICATIONS: See Below ALLERGIES: See Below VITALS: See Below PHYSICAL EXAMINATION: GENERAL: Patient is awake alert in no acute distress patient is resting comfortably and showing no signs of anxiety EYES: The conjunctivae are clear. The pupils are round and reactive. EARS, NOSE, MOUTH AND THROAT: The nose is without any evidence of any deformity. Mucous membranes are moist. Tongue is midline. NECK: The neck is nontender and supple. RESPIRATORY: Diminished breath sounds are noted in the left lung field. There is no tachypnea or conversational dyspnea. CARDIOVASCULAR: Regular rate and rhythm noted there no murmurs rubs or gallops normal S1 normal S2. GASTROINTESTINAL: The abdomen is soft. Abdomen is nontender. MUSCULOSKELETAL/EXTREMITIES: There is no evidence of gross deformity full range of motion is noted in the hips and shoulders. SKIN: Pedal edema was noted bilaterally. NEUROLOGIC: Patient is awake alert and oriented x3 MEDICAL DECISION MAKING: The patient is a 78-year-old male who presented to the emergency department for an evaluation of cough and chest pain. The patient has been experiencing congestion and cough over the course the last several days. The patient was seen at [facility] and had an outpatient x-ray. X-ray showed a left-sided infiltrate. I did review the patient's x-ray report from [facility]. The patient was treated with IV antibiotics emergency department. I discussed the patient's laboratory results with him. The patient was not comfortable being discharged to home. He was told to come to the emergency department for admission for his pneumonia. Certainly given the patient's age and comorbidities I feel this is reasonable but he was not septic hypotensive tachycardic or hypoxic. I discussed his condition with the on-call [facility] hospitalist. They have agreed to evaluate the patient in the emergency department for further management and disposition. Triage Nursing notes reviewed. Prior medical records reviewed Vital Signs: reviewed and remarkable for no significant abnormalities Differential diagnosis: Reactive airway disease, pneumonia, pneumothorax, COPD, CHF, infections, cardiac ischemia, pulmonary embolism, musculoskeletal, gastrointestinal, as well as other pathologies. ER treatment provided: See below Diagnostics interpreted by me: ECG: EKG was obtained in the emergency department. My interpretation is ventricular paced rhythm at 94 bpm. Some holy cross beats were noted. Left bundle- branch block pattern was favored. This was compared to a tracing from August 12, 2020. Paced rhythm has replaced atrial fibrillation. Cardiac Monitoring: An order was placed for continuous cardiac monitoring. The monitor shows a rate of 61 bpm with paced rhythm. Laboratory studies: As stated above and show below. Imaging studies: See below. Radiographic imaging was reviewed by myself Consultation(s): I discussed this case with Dr. Broussard who is on-call for the [facility] hospitalist group. Past Med/Surg History Problem List (Updated 07/19/24 @ 00:09 by Steve Mooney DO) Elevated troponin I level (Acute) Chest pain (Acute) Pneumonia (Acute) Intermittent complete heart block Acute respiratory failure with hypoxia SIRS (systemic inflammatory response syndrome) DVT prophylaxis T2DM (type 2 diabetes mellitus) Hypomagnesemia Acute worsening of stage 3 chronic kidney disease Persistent atrial fibrillation Post-pericardiotomy syndrome Pericarditis (Acute) Pleural effusion (Acute) Pneumonia (Acute) Atrial fibrillation with RVR (Acute) Dyspnea Pericardial effusion (Acute) Pleural effusion, left Paroxysmal atrial fibrillation Pre-diabetes Hypertension CKD (chronic kidney disease), stage III S/P AVR (aortic valve replacement) Encounter for pre-operative examination Neurogenic bladder resolved 2014 GERD (gastroesophageal reflux disease) Hypogonadism in male History of cholecystectomy History of appendectomy History of partial colectomy H/O ventral hernia repair H/O transurethral resection of prostate "Dr. Colt North 01/27/2015" History of total right hip arthroplasty "Dr. Barbosa 10/2013" History of tonsillectomy Benign hypertrophy of prostate Diverticulosis of colon without hemorrhage Esophageal reflux Medical History Admitted to intensive care unit Breath shortness Chest pain DVT prophylaxis Pericardial effusion with cardiac tamponade Atrial fibrillation Pancreatitis history of Valvular heart disease aortic regurgitation. left ventricle thickening Surgical History History of aortic valve replacement bio prosthetic 07/10/20 S/P pericardiocentesis History of tooth extraction all upper teeth removed Family History Father Diabetes Coronary heart disease COPD (chronic obstructive pulmonary disease) Social History Smoking Status: Former smoker Tobacco Type: Cigarettes Second Hand Exposure: No; Do You Dip or Chew Tobacco: No; Hx Alcohol Use: Yes Alcohol type: wine Hx Substance Use: No Preferred Language: Romanian Communication Ability: Effective Die Maker Required: No Beliefs That Will Affect Care: None Current Living Situation: Alone Feels Safe at Home: Yes Assistive Devices: None Allergies Allergies Allergy/AdvReac Type Severity Reaction Status Date / Time adhesive Allergy Mild RASH Verified 05/23/24 10:07 meperidine AdvReac Unknown HALLUCINATI Verified 05/23/24 10:07 ONS Home Meds Home Medications Medication Instructions Recorded Confirmed albuterol sulfate 90 mcg/actuation 2 puff inhalation QID PRN sob 07/23/20 05/23/24 aerosol inhaler ascorbic acid (vitamin C) 500 mg 500 mg PO QAM 07/23/20 05/23/24 tablet (Vitamin C) calcium 315 mg (as 1 tab PO QAM 07/23/20 05/23/24 citrate)-vitamin D3 5 mcg (200 unit) tablet (Calcium Citrate + D) cholecalciferol (vitamin D3) 25 25 mcg PO QAM 07/23/20 05/23/24 mcg (1,000 unit) capsule docusate sodium 100 mg capsule 100 mg PO QAM 07/23/20 05/23/24 (Colace) fluticasone propionate 50 1 spray intranasal BID 07/23/20 05/23/24 mcg/actuation nasal spray,suspension ginkgo biloba 40 mg tablet 40 mg PO QAM 07/23/20 05/23/24 glucosamine sulf dipot 1 cap PO QAM 07/23/20 05/23/24 chlr,msm,chond 550 mg-C 30 mg-girma 1 mg capsule (Glucosamine Chondroitin) latanoprost 0.005 % eye drops 1 drp OPB HS 07/23/20 05/23/24 omega-3 fatty acids-fish oil 684 1 cap PO QAM 07/23/20 05/23/24 mg-1,200 mg capsule,delayed release oxycodone 5 mg tablet 5 mg PO Q4H PRN Pain 07/23/20 05/23/24 multivitamin 1 tab PO QAM 08/10/20 05/23/24 apixaban 5 mg tablet 5 mg PO BID 11/13/20 05/23/24 latanoprost 0.005 % eye drops 1 drp ophthalmic (eye) DAILY 11/13/20 05/23/24 magnesium oxide 400 mg PO DAILY 11/13/20 05/23/24 pantoprazole 40 mg tablet,delayed 40 mg PO BID 11/13/20 05/23/24 release (Protonix) furosemide 40 mg tablet 80 mg PO QAM 05/23/24 05/23/24 spironolactone 25 mg tablet 12.5 mg PO 1XD 05/23/24 05/23/24 Results & Data (ED) Vital Signs Vital Signs - 24 hr 07/18/24 19:06 07/18/24 20:38 07/18/24 20:39 Temperature 36.7 C Temperature Source Oral Pulse Rate 95 H 43 L Pulse Rate [Apical] Respiratory Rate 18 Respiratory Effort / Characteristics Non-Labored Spontaneous Respiratory Depth Normal Blood Pressure 146/84 H Blood Pressure [Left Arm] Blood Pressure Mean 104 Blood Pressure Mean [Left Arm] Pulse Oximetry 95 Oxygen Delivery Method Room Air Room Air Sepsis Recent Fever Within 48 Hours No Sepsis New/Unexplained Change in Mental Status No Sepsis Action Taken by Nursing No Action Required 07/18/24 20:39 07/18/24 22:30 Temperature Temperature Source Pulse Rate Pulse Rate [Apical] 55 L 61 Respiratory Rate 16 18 Respiratory Effort / Characteristics Non-Labored Spontaneous Non-Labored Spontaneous Respiratory Depth Normal Normal Blood Pressure Blood Pressure [Left Arm] 137/68 115/88 Blood Pressure Mean Blood Pressure Mean [Left Arm] 91 97 Pulse Oximetry 96 96 Oxygen Delivery Method Room Air Room Air Sepsis Recent Fever Within 48 Hours Sepsis New/Unexplained Change in Mental Status Sepsis Action Taken by Shelter Medications Current Medication List: was personally reviewed by me Laboratory Data Attestation: I reviewed the patient's lab results. 07/18/24 19:34 07/18/24 19:34 Lab Results 07/18/24 07/18/24 Range/Units 19:34 22:21 WBC 9.99 (4.8-10.8) K/ul RBC 4.05 L (4.70-6.10) M/uL Hgb 12.1 L (14.0-18.0) g/dl Hct 35.1 L (42.0-52.0) % MCV 86.7 (80.0-100.0) fL MCH 29.9 (25.0-34.0) pg MCHC 34.5 (32.0-36.0) g/dL RDW Std Deviation 42.7 (36.4-46.3) fL RDW Coeff of Shruti 13.4 (11.5-14.5) % Plt Count 226 (130-400) K/uL MPV 9.8 (9.4-12.4) fL Immature Gran % (Auto) 0.3 % Neut % (Auto) 82.8 % Lymph % (Auto) 6.5 % [place] % (Auto) 10.1 % Eos % (Auto) 0.2 % Baso % (Auto) 0.1 % Neut # (Auto) 8.27 H (1.40-6.50) K/uL Lymph # (Auto) 0.65 L (1.20-3.40) K/uL [place] # (Auto) 1.01 H (0.11-0.59) K/uL Eos # (Auto) 0.02 (0.00-0.50) K/uL Baso # (Auto) 0.01 (0.00-0.20) K/uL Immature Gran # (Auto) 0.03 (0.01-0.20) K/uL PT 13.2 H (9.0-12.0) Seconds INR 1.2 H (0.9-1.1) APTT 34 H (21-31) Seconds PTT Ratio 1.3 Sodium 136 (136-145) mmol/L Potassium 3.7 (3.5-5.1) mmol/L Chloride 104 (98-107) mmol/L Carbon Dioxide 24 (21-32) mmol/L Anion Gap 8 (3-11) BUN 22 (6-23) mg/dl Creatinine 1.35 (0.6-1.4) mg/dl Est Cr Clr Drug Dosing 44.3 ml/min eGFR 54.08 BUN/Creatinine Ratio 16.3 (10-20) Glucose 183 H (70-99(Fasting)) mg/dl Calcium 9.2 (8.6-10.3) mg/dl Total Bilirubin 1.8 H (0.2-1.0) mg/dl AST 20 (13-39) U/L ALT 22 (7-52) U/L Alkaline Phosphatase 79 (34-104) U/L Troponin I High Sens 29.7 H 31.2 H (0-20) pg/ml Total Protein 6.8 (6.0-8.3) gm/dl Albumin 3.6 (3.4-5.0) gm/dl Globulin 3.2 (2.5-4.0) gm/dl Albumin/Globulin Ratio 1.1 (0.9-2) Adenovirus (PCR) Not Detected (NotDetected) B. pertussis DNA (PCR) Not Detected (NotDetected) B.parapertussis DNA PCR Not Detected (NotDetected) C. pneumoniae DNA (PCR) Not Detected (NotDetected) Coronavirus OC43 (PCR) Not Detected (NotDetected) Coronavirus HKU1 (PCR) Not Detected (NotDetected) Coronavirus 229E (PCR) Not Detected (NotDetected) SARS-CoV-2 (PCR) Not Detected (NotDetected) Coronavirus NL63 (PCR) Not Detected (NotDetected) Human Metapneumovir PCR Not Detected (NotDetected) Influenza Type A (PCR) Not Detected (NotDetected) Influenza Type B (PCR) Not Detected (NotDetected) M. pneumoniae (PCR) Not Detected (NotDetected) Parainfluenza 1 (PCR) Not Detected (NotDetected) Parainfluenza 2 (PCR) Not Detected (NotDetected) Parainfluenza 3 (PCR) Not Detected (NotDetected) Parainfluenza 4 (PCR) Not Detected (NotDetected) RSV (PCR) Not Detected (NotDetected) Entero/Rhino (PCR) Not Detected (NotDetected) Administered Medications Discontinued Medications Albuterol (Albut/Ipratrop 3mg/0.5mg Neb 3 Ml Vial) 3 ml NEB NOW STA; Protocol Stop: 07/18/24 21:05 Last Admin: 07/18/24 21:25 Dose: 3 ml Documented By: KELLY Ceftriaxone Sodium (Rocephin) 2,000 mg in 50 mls @ 100 mls/hr IV NOW STA Stop: 07/18/24 21:34 Last Infusion: 07/18/24 22:12 Dose: Infused Documented By: Admin: 07/18/24 21:26 Dose: 100 mls/hr Documented By: KELLY Discharge Plan Visit Data Chief Complaint: Shortness of Breath/Dyspnea Stated Complaint: COUGHING, CHEST PAIN,PNEUMONIA, [facility] SENT ED Provider: Steve Mooney Discharge Problem: Pneumonia, Chest pain, Elevated troponin I level Patient Disposition: Being Evaluated by Hospitalist Forms Stand Alone Forms: My [facility] Prescriptions Prescriptions: No Action fluticasone propionate 50 mcg/actuation [place],Suspension 1 spray INTRANASAL BID oxycodone 5 mg Tablet 5 mg PO Q4H PRN (Reason: Pain) latanoprost 0.005 % Drops 1 drp OPB HS ascorbic acid (vitamin C) [Vitamin C] 500 mg Tablet 500 mg PO QAM albuterol sulfate 90 mcg/actuation Hfa Aerosol Inhaler 2 puff INHALATION QID PRN (Reason: sob) cholecalciferol (vitamin D3) 25 mcg (1,000 unit) Capsule 25 mcg PO QAM omega-3 fatty acids-fish oil 684-1,200 mg Capsule,Delayed Release(Dr/Ec) 1 cap PO QAM ginkgo biloba 40 mg Tablet 40 mg PO QAM docusate sodium [Colace] 100 mg Capsule 100 mg PO QAM calcium citrate-vitamin D3 [Calcium Citrate + D] 315 mg-5 mcg (200 unit) Tablet 1 tab PO QAM Glucosamine Chondroitin 550-30-1 mg Capsule 1 cap PO QAM multivitamin Tablet 1 tab PO QAM latanoprost 0.005 % Drops 1 drp OPHTHALMIC (EYE) DAILY pantoprazole [Protonix] 40 mg Tablet,Delayed Release (Dr/Ec) 40 mg PO BID apixaban 5 mg Tablet 5 mg PO BID magnesium oxide 400 mg magnesium Tablet 400 mg PO DAILY furosemide 40 mg tablet 80 mg PO QAM spironolactone 25 mg Tablet 12.5 mg PO 1XD Referrals Referrals: Lokesh Amin MD [Primary Care Provider] - Discharge Problem: Pneumonia Qualifiers: Pneumonia type: due to unspecified organism Laterality: left Lung location: u nspecified part of lung Qualified Code(s): J18.9 - Pneumonia, unspecified organism Chest pain Qualifiers: Chest pain type: unspecified Qualified Code(s): R07.9 - Chest pain, unspecified
[2024-07-18] MEDS: ALBUT/IPRATROP 3MG/0.5MG NEB 3 ML VIAL NEB STA (21:25)
[2024-07-18] MEDS: cefTRIAXone SODIUM 2,000 MG/50 ML BAG IV STA (21:26)
[2024-07-18 21:34] LABS: Troponin I High Sensitivity 29.7 pg/ml (0-20)
[2024-07-19] MEDS: COUGH DROP (SUGAR FREE) LOZ 24 LOZ/1 BOX BUCCAL STA (01:14)
--- NOTE | 2024-07-19 01:24 | History & Physical Report ---
Date of Service July 19, 2024 Assessment & Plan (1) Pneumonia: Plan: 78-year-old male with past medical history significant for type 2 diabetes, male hypogonadism, hypomagnesia, chronic diastolic CHF, paroxysmal atrial fibrillation, status post pacemaker, left ventricular hypertrophy, hypertension, aortic valve regurgitation, left carotid stenosis, CKD stage III, GERD, osteoarthritis, status post aortic valve replacement with bioprosthetic valve was sent in because of pneumonia. Patient states for the last couple of weeks is not feeling good.. He was feeling some chest tightness. Since last 1 week having dry cough. Last few days he was getting more short of breath and was getting chest pains. The chest pain is more with coughing. He went to urgent care today. Chest x-ray was done which showed pneumonia and has been advised to come to the ER. Denies any fevers. Has some mild runny nose. No dizziness. No headache. No blurred vision. No earaches. No sore throat. Appetite is okay. Feeling short of breath. No nausea ,no abdominal pain. Normal bowel and bladder movements. Currently hemodynamics are okay. Pneumonia Ongoing cough and shortness of breath Outpatient chest x-ray showed left basilar and midlung pneumonia. ER gave Rocephin Will continue Rocephin and also doxycycline Continue home inhalers Nebs as needed Close monitor Mild elevation troponin Has chest pain but the pain is more with coughing EKG showed paced rhythm Will follow serial enzymes and echo If any concerns will get cardio consult History of nonrheumatic aortic valve insufficiency Status post minimally invasive aortic valve replacement with epic valve Postpericardiotomy syndrome with acute tamponade and atrial fibrillation in June 2020. Patient underwent urgent pericardiocentesis. Rehospitalization was postpericardiotomy syndrome with pleural effusion responded to steroids and diuretics. History of intermittent AV dissociation and near syncope status post dual- chamber pacemaker implantation in 2020 Chronic diastolic CHF Continue home Lasix and spironolactone Will monitor for volume overload Hypertension On diuretics and metoprolol succinate We will monitor History of paroxysmal atrial fibrillation On metoprolol succinate and Eliquis Hyperlipidemia On statin Diabetes On long-acting insulin 10 units daily sliding scale Will monitor History of hypomagnesia Continue magnesium supplements Follow labs GERD On Protonix DVT prophylaxis Eliquis Disposition Med/telemetry Full code. History of Present Illness Chief Complaint: Cough and shortness of breath Primary Care Provider: Lokesh Amin MD 78-year-old male with past medical history significant for type 2 diabetes, male hypogonadism, hypomagnesia, chronic diastolic CHF, paroxysmal atrial fibrillation, status post pacemaker, left ventricular hypertrophy, hypertension, aortic valve regurgitation, left carotid stenosis, CKD stage III, GERD, osteoarthritis, status post aortic valve replacement with bioprosthetic valve was sent in because of pneumonia. Patient states for the last couple of weeks is not feeling good.. He was feeling some chest tightness. Since last 1 week having dry cough. Last few days he was getting more short of breath and was getting chest pains. The chest pain is more with coughing. He went to urgent care today. Chest x-ray was done which showed pneumonia and has been advised to come to the ER. Denies any fevers. Has some mild runny nose. No dizziness. No headache. No blurred vision. No earaches. No sore throat. Appetite is okay. Feeling short of breath. No nausea ,no abdominal pain. Normal bowel and bladder movements. Currently hemodynamics are okay. Past medical history. As mentioned above. Past surgical history. Colonoscopy. Cystoscopy. Cystourethroscopy with fulguration of minor bladder tumor. Abdominal hernia repair with mesh implantation. Partial removal of colon. Appendectomy. TURP. Tonsillectomy. Cholecystectomy. Repair of incisional hernia. Replacement of aortic valve with prosthetic valve. Right total hip replacement. Social history. Quit cigarettes in 2009. 5.8 standard drinks of alcohol per week. No drug use. Family history. Father had diabetes. Heart disorder. COPD. Mother had heart disorder. Brother has hyroid disorder. Allergies Allergy/AdvReac Type Severity Reaction Status Date / Time adhesive Allergy Mild RASH Verified 05/23/24 10:07 meperidine AdvReac Unknown HALLUCINATI Verified 05/23/24 10:07 ONS Home Medications Medication Instructions Recorded Confirmed Type albuterol sulfate 90 mcg/actuation 2 puff inhalation Q6H PRN sob 07/19/24 07/19/24 History aerosol inhaler apixaban 5 mg tablet (Eliquis) 5 mg PO BID 07/19/24 07/19/24 History atorvastatin 10 mg tablet 10 mg PO DAILY 07/19/24 07/19/24 History colestipol 1 gram tablet 1 g PO DAILY 07/19/24 07/19/24 History fluticasone propionate 50 2 spray intranasal DAILY 07/19/24 07/19/24 History mcg/actuation nasal spray,suspension furosemide 40 mg tablet 80 mg PO DAILY 07/19/24 07/19/24 History insulin glargine-yfgn 100 unit/mL 10 unit subcut DAILY 07/19/24 07/19/24 History (3 mL) subcutaneous pen latanoprost 0.005 % eye drops 1 drp OPB HS 07/19/24 07/19/24 History magnesium chloride 64 mg 128 mg PO BID 07/19/24 07/19/24 History (magnesium chloride) tablet,delayed release metoprolol succinate 25 mg 25 mg PO DAILY 07/19/24 07/19/24 History tablet,extended release 24 hr pantoprazole 40 mg tablet,delayed 40 mg PO DAILY 07/19/24 07/19/24 History release spironolactone 25 mg tablet 12.5 mg PO DAILY 07/19/24 07/19/24 History Past Med/Surg History Problem List (Updated 07/19/24 @ 00:09 by Steve Mooney DO) Elevated troponin I level (Acute) Chest pain (Acute) Pneumonia (Acute) Intermittent complete heart block Acute respiratory failure with hypoxia SIRS (systemic inflammatory response syndrome) DVT prophylaxis T2DM (type 2 diabetes mellitus) Hypomagnesemia Acute worsening of stage 3 chronic kidney disease Persistent atrial fibrillation Post-pericardiotomy syndrome Pericarditis (Acute) Pleural effusion (Acute) Pneumonia (Acute) Atrial fibrillation with RVR (Acute) Dyspnea Pericardial effusion (Acute) Pleural effusion, left Paroxysmal atrial fibrillation Pre-diabetes Hypertension CKD (chronic kidney disease), stage III S/P AVR (aortic valve replacement) Encounter for pre-operative examination Neurogenic bladder resolved 2014 GERD (gastroesophageal reflux disease) Hypogonadism in male History of cholecystectomy History of appendectomy History of partial colectomy H/O ventral hernia repair H/O transurethral resection of prostate "Dr. Colt North 01/27/2015" History of total right hip arthroplasty "Dr. Barbosa 10/2013" History of tonsillectomy Benign hypertrophy of prostate Diverticulosis of colon without hemorrhage Esophageal reflux Medical History Admitted to intensive care unit Breath shortness Chest pain DVT prophylaxis Pericardial effusion with cardiac tamponade Atrial fibrillation Pancreatitis history of Valvular heart disease aortic regurgitation. left ventricle thickening Surgical History History of aortic valve replacement bio prosthetic 07/10/20 S/P pericardiocentesis History of tooth extraction all upper teeth removed Family History Father Diabetes Coronary heart disease COPD (chronic obstructive pulmonary disease) Social History Smoking Status: Former smoker Tobacco Type: Pipe and Cigars Second Hand Exposure: No; Do You Dip or Chew Tobacco: No; Hx Alcohol Use: Yes Alcohol type: wine Hx Substance Use: No Preferred Language: Uzbek Communication Ability: Effective Dragline Engineer Required: No Beliefs That Will Affect Care: None Current Living Situation: Alone Feels Safe at Home: Yes Safety Concerns: Feels Safe At This Time Assistive Devices: None Review of Systems Review of Systems: All systems reviewed & are unremarkable except as noted in HPI & below Physical Exam Physical Exam: General- Not in distress Head- atraumatic Eyes- PERRL. ENT- oropharynx clear Neck- supple, no JVD. Lungs- clear to auscultation no wheezing or crackles Heart- regular rhythm; no murmur, no gallop. Abdomen- normal bowel sounds, soft, nontender, no distension Extremities- has pretibial edema, no erythema seen Neuro- alert, oriented x 3; PERRL, no facial palsy; no dysarthria; moves extremities Results & Data Results & Data Vital Signs (Past 12 Hours) Vital Signs Temp Pulse Pulse Resp BP BP Pulse Ox 07/19/24 00:26 73 07/19/24 00:00 83 29 H 100/84 94 07/18/24 22:30 61 18 115/88 96 07/18/24 20:39 55 L 16 137/68 96 07/18/24 20:39 07/18/24 20:38 43 L 07/18/24 19:06 36.7 C 95 H 18 146/84 H 95 O2 Del Method 07/19/24 00:26 07/19/24 00:00 Room Air 07/18/24 22:30 Room Air 07/18/24 20:39 Room Air 07/18/24 20:39 Room Air 07/18/24 20:38 07/18/24 19:06 Room Air Diagnostic Findings Laboratory Results WBC 9.99 K/ul (4.8-10.8) 07/18/24 19:34 RBC 4.05 M/uL (4.70-6.10) L 07/18/24 19:34 Hgb 12.1 g/dl (14.0-18.0) L 07/18/24 19:34 Hct 35.1 % (42.0-52.0) L 07/18/24 19:34 MCV 86.7 fL (80.0-100.0) 07/18/24 19:34 MCH 29.9 pg (25.0-34.0) 07/18/24 19:34 MCHC 34.5 g/dL (32.0-36.0) 07/18/24 19:34 RDW Std Deviation 42.7 fL (36.4-46.3) 07/18/24:34 RDW Coeff of Shruti 13.4 % (11.5-14.5) 07/18/24 19:34 Plt Count 226 K/uL (130-400) 07/18/24 19:34 MPV 9.8 fL (9.4-12.4) 07/18/24 19:34 Immature Gran % (Auto) 0.3 % 07/18/24 19:34 Neut % (Auto) 82.8 % 07/18/24 19:34 Lymph % (Auto) 6.5 % 07/18/24 19:34 [place] % (Auto) 10.1 % 07/18/24 19:34 Eos % (Auto) 0.2 % 07/18/24 19:34 Baso % (Auto) 0.1 % 07/18/24:34 Neut # (Auto) 8.27 K/uL (1.40-6.50) H 07/18/24 19:34 Lymph # (Auto) 0.65 K/uL (1.20-3.40) L 07/18/24 19:34 [place] # (Auto) 1.01 K/uL (0.11-0.59) H 07/18/24 19:34 Eos # (Auto) 0.02 K/uL (0.00-0.50) 07/18/24 19:34 Baso # (Auto) 0.01 K/uL (0.00-0.20) 07/18/24 19:34 Immature Gran # (Auto) 0.03 K/uL (0.01-0.20) 07/18/24 19:34 PT 13.2 Seconds (9.0-12.0) H 07/18/24 19:34 INR 1.2 (0.9-1.1) H 07/18/24 19:34 APTT 34 Seconds (21-31) H 07/18/24 19:34 PTT Ratio 1.3 07/18/24 19:34 Sodium 136 mmol/L (136-145) 07/18/24 19:34 Potassium 3.7 mmol/L (3.5-5.1) 07/18/24 19:34 Chloride 104 mmol/L (98-107) 07/18/24 19:34 Carbon Dioxide 24 mmol/L (21-32) 07/18/24 19:34 Anion Gap 8 (3-11) 07/18/24 19:34 BUN 22 mg/dl (6-23) 07/18/24 19:34 Creatinine 1.35 mg/dl (0.6-1.4) 07/18/24 19:34 Est Cr Clr Drug Dosing 44.3 ml/min 07/18/24 19:34 eGFR 54.08 07/18/24 19:34 BUN/Creatinine Ratio 16.3 (10-20) 07/18/24 19:34 Glucose 183 mg/dl (70-99(Fasting)) H 07/18/24 19:34 Calcium 9.2 mg/dl (8.6-10.3) 07/18/24 19:34 Total Bilirubin 1.8 mg/dl (0.2-1.0) H 07/18/24 19:34 AST 20 U/L (13-39) 07/18/24 19:34 ALT 22 U/L (7-52) 07/18/24 19:34 Alkaline Phosphatase 79 U/L (34-104) 07/18/24 19:34 Troponin I High Sens 31.2 pg/ml (0-20) H 07/18/24 22:21 Total Protein 6.8 gm/dl (6.0-8.3) 07/18/24 19:34 Albumin 3.6 gm/dl (3.4-5.0) 07/18/24 19:34 Globulin 3.2 gm/dl (2.5-4.0) 07/18/24 19:34 Albumin/Globulin Ratio 1.1 (0.9-2) 07/18/24 19:34 Adenovirus (PCR) Not Detected (NotDetected) 07/18/24 19:34 B. pertussis DNA (PCR) Not Detected (NotDetected) 07/18/24 19:34 B.parapertussis DNA PCR Not Detected (NotDetected) 07/18/24 19:34 C. pneumoniae DNA (PCR) Not Detected (NotDetected) 07/18/24 19:34 Coronavirus OC43 (PCR) Not Detected (NotDetected) 07/18/24 19:34 Coronavirus HKU1 (PCR) Not Detected (NotDetected) 07/18/24 19:34 Coronavirus 229E (PCR) Not Detected (NotDetected) 07/18/24 19:34 SARS-CoV-2 (PCR) Not Detected (NotDetected) 07/18/24 19:34 Coronavirus NL63 (PCR) Not Detected (NotDetected) 07/18/24 19:34 Human Metapneumovir PCR Not Detected (NotDetected) 07/18/24 19:34 Influenza Type A (PCR) Not Detected (NotDetected) 07/18/24 19:34 Influenza Type B (PCR) Not Detected (NotDetected) 07/18/24 19:34 M. pneumoniae (PCR) Not Detected (NotDetected) 07/18/24 19:34 Parainfluenza 1 (PCR) Not Detected (NotDetected) 07/18/24 19:34 Parainfluenza 2 (PCR) Not Detected (NotDetected) 07/18/24 19:34 Parainfluenza 3 (PCR) Not Detected (NotDetected) 07/18/24 19:34 Parainfluenza 4 (PCR) Not Detected (NotDetected) 07/18/24 19:34 RSV (PCR) Not Detected (NotDetected) 07/18/24 19:34 Entero/Rhino (PCR) Not Detected (NotDetected) 07/18/24 19:34 ECG Additional Comments: ECG. Ventricular paced rhythm with frequent PVCs rate of 94. Code Status & VTE Plan VTE Prophylaxis Plan VTE Prophylaxis will be ordered: Yes (1) Pneumonia Laterality: left Lung location: unspecified part of lung Pneumonia type: due to unspecified organism Qualified Code(s): J18.9 - Pneumonia, unspecified organism
[2024-07-19] MEDS ORDERED: GLUCOSE 40% GEL 15 GM TUBE PO PRN (01:35)
[2024-07-19] MEDS ORDERED: GLUCAGON FOR INJ 1 MG VIAL SQ PRN (01:35)
[2024-07-19] MEDS ORDERED: CARBOHYDRATES FOR HYPOGLYCEMIA PO PRN (01:35)
[2024-07-19] MEDS ORDERED: GLUCOSE 10 TAB/TUBE PO PRN (01:35)
[2024-07-19] MEDS ORDERED: NITROGLYCERIN SL 0.4 MG/TAB TAB SL PRN (01:35)
[2024-07-19] MEDS ORDERED: ACETAMINOPHEN 325 MG TAB PO PRN (01:35)
[2024-07-19] MEDS ORDERED: POLYETHYLENE (MIRALAX) 17 GM PACK PO PRN (01:35)
[2024-07-19] MEDS ORDERED: DEXTROSE 50% 50 ML SYRINGE IV PRN (01:35)
[2024-07-19] MEDS: DOXYCYCLINE HYCLATE 100 MG in DEXTROSE 5% MINI-B 100 ML IV STA (01:57)
[2024-07-19] MEDS: ALBUTEROL HFA 8 GM INHALER INH PRN (06:36)
[2024-07-19 06:47] LABS: Basophils # (auto) 0.02 K/uL (0.00-0.20); Basophils % (auto) 0.2 %; Eosinophils # (auto) 0.03 K/uL (0.00-0.50); Eosinophils % (auto) 0.3 %; Hematocrit (blood only) 32.3 % (42.0-52.0); Hemoglobin 10.8 g/dl (14.0-18.0); Immature Granulocytes # (auto) 0.04 K/uL (0.01-0.20); Immature Granulocytes % (auto) 0.4 %; Lymphocytes # (auto) 0.71 K/uL (1.20-3.40); Lymphocytes % (auto) 7.5 %; Mean Corpuscular Hemoglobin 29.6 pg (25.0-34.0); Mean Corpuscular Hgb Conc 33.4 g/dL (32.0-36.0); Mean Corpuscular Volume 88.5 fL (80.0-100.0); Mean Platelet Volume 9.7 fL (9.4-12.4); Monocytes # (auto) 1.22 K/uL (0.11-0.59); Monocytes % (auto) 12.8 %; Neutrophils # (auto) 7.51 K/uL (1.40-6.50); Neutrophils % (auto) 78.8 %; Platelet Count 206 K/uL (130-400); RDW Coefficient of Variation 13.6 % (11.5-14.5); RDW Standard Deviation 44.4 fL (36.4-46.3); Red Blood Count 3.65 M/uL (4.70-6.10); White Blood Count 9.53 K/ul (4.8-10.8)
[2024-07-19 07:04] LABS: Estimated Average Glucose 128 mg/dl; Hemoglobin A1C 6.1 % (4.5-5.6)
[2024-07-19 07:08] LABS: BUN Creatinine Ratio 13.4 (10-20); Calcium 8.7 mg/dl (8.6-10.3); Creatinine Clr Calc Pharmacy 50.3 ml/min; Magnesium 1.8 mg/dl (1.7-2.4); Phosphorus 3.2 mg/dl (2.5-4.9); Potassium 3.6 mmol/L (3.5-5.1)
[2024-07-19 07:13] LABS: Troponin I High Sensitivity 27.9 pg/ml (0-20)
[2024-07-19] MEDS: SPIRONOLACTONE 12.5 MG TAB PO SCH (08:41)
[2024-07-19] MEDS: METOPROLOL SUCC 25MG EXT REL TAB PO SCH (08:41)
[2024-07-19] MEDS: PANTOprazole 40 MG TAB PO SCH (08:41)
[2024-07-19] MEDS: MAGNESIUM CHLORIDE W/CALCIUM 64MG DELAYED REL TAB PO SCH (08:42)
[2024-07-19] MEDS: ATORVASTATIN 10 MG TAB PO SCH (08:42)
[2024-07-19] MEDS: FLUTICASONE PROPIONATE NA SPR 16 GM BTL SCH (08:42)
[2024-07-19] MEDS: APIXABAN 5 MG TABLET PO SCH (08:42)
[2024-07-19] MEDS: FUROSEMIDE 80 MG TAB PO SCH (08:42)
[2024-07-19] MEDS ORDERED: LANTUS PER UNIT CHARGE SQ SCH (09:00)
--- NOTE | 2024-07-19 09:11 | CT Scan Report ---
CT chest diagnostic wo con CLINICAL HISTORY: Reported hx of pneumonia as outpatient on CXR TECHNIQUE: Multidetector row helical CT of the chest was performed. Coronal and sagittal reformations were obtained. Automated dose lowering techniques and/or adjustment according to patient size were u tilized for this exam. CT DOSE: 957.28 mGy.cm Comparison: Comparison is made to CT chest 08/10/2020 FINDINGS: Lungs and pleura: There is consolidation in the left lower lobe with a small left pleural effusion. Heart and pericardium: Cardiomegaly is seen with biatrial enlargement. Vessels: Aortic valvular prosthesis is seen. Mild atherosclerotic disease is seen. Mediastinum and alanna: Prominent mediastinal lymph nodes measure up to 11 mm in diameter. Chest wall and lower neck: Unremarkable. Abdomen: A hiatal hernia is seen. Left adrenal lesion is seen likely representing an adenoma. Bones: Degenerative changes in the thoracic spine. IMPRESSION: Consolidation left lower lobe with reactive mediastinal lymphadenopathy. Follow-up to resolution is r ecommended. ACT 112: Negative or not required by law. Electronically signed by: Zach Adams M.D. 07/19/2024 9:10 AM
[2024-07-19] MEDS: LANTUS PER UNIT CHARGE SQ SCH (09:49)
[2024-07-19] MEDS: INSULIN ASPART PER UNIT CHARGE SC SCH (09:49)
[2024-07-19] MEDS: DOXYCYCLINE HYCLATE 100 MG in DEXTROSE 5% MINI-B 100 ML IV SCH (09:52)
--- OUTSIDE RECORDS SUMMARY | 2024-07-19 11:31 | External Medical Summary | Summary of Care ---
Author Name Unknown Organization [facility] Address [address] [place] [address] Phone [phone] Care Team Providers Care Lapel Stitcher Name Role Phone Lokesh Amin MD Primary Care Provider + Reason for Visit * Reason Comments Outpatient Testing Encounter Details Date Type Department Care Team (Late st Contact Info) Description 07/04/2024 3:20 PM EDT Laboratory Laboratory, [facility] [address] [place] [address] [facility] [address] [place] [address] Type 2 diabetes mellitus with hemoglobin A1c goal of less than 8.0% ([facility]); Hypomagnesemia Allergies Active Allergy Reactions Criticality Noted Date Comments Demerol Neuro complications (Please comment) High 06/14/2010 confusion Adhesive Tape Rash Low 06/14/2010 documented as of this encounter (statuses as of 07/04/2024) Medications Medication Sig Dispensed Refills Start Date End Date Status GINKOBA 40 MG OR TABS 0 05/10/2004 Active GLUCOSAMINE CHONDROITIN OR TABSIndications:P ain in limb tid 90 5 08/08/2005 Active Additional Information Patient taking differently:OralDaily(AM), Informant: Patient, Reported on 05/17/2023 VITAMIN C 500 MG PO TABS 1 TABLET DAILY 0 08/15/2006 Active CALCIUM CITRATE + D 315-200 MG-UNIT PO TABS one tab daily Active COLACE 100 MG PO CAPSIndications:I ntestinal obstruction (HCC) one cap daily 12/23/2010 Acti ve latanoprost (XALATAN) 0.005 % ophthalmic solution Instill 1 Drop into both eyes at bedtime. 11 05/28/2019 Active amoxicillin (AMOXIL) 500 MG Capsule Take 1 Capsule by mouth daily as needed. Patient takes prior to dental appointments. 02/25/2020 Active Albuterol Sulfate HFA 108 (90 Base) MCG/ACT Inhalation Aerosol SolutionIndicatio ns:Acute bronchospasm Inhale 2 Puffs by mouth 4 times a day. 54 g 3 07/29/2021 Active Metoprolol Succinate ER 25 MG Oral Tablet Extended Release 24 Hour (toPROL XL)Indications:Ca rdiomegaly TAKE 1 TABLET BY MOUTH EVERY DAY 90 Tablet 3 08/08/2023 Active Cranberry 500 MG Oral Tablet Take 500 mg by mouth in the morning. Active Spironolactone 25 MG Oral Tablet (Aldactone)Indica tions:HTN, goal below 140/90 TAKE 1/2 TABLET BY MOUTH EVERY DAY 45 Tablet 3 12/15/2023 Active Furosemide 40 MG Oral Tablet (Lasix)Indication s:Bilateral leg edema TAKE 2 TABLETS BY MOUTH IN THE MORNING 180 Tablet 3 12/29/2023 Active Pantoprazole Sodium 40 MG Oral Tablet Delayed Release (Protonix)Indicat ions:Esophageal reflux TAKE 1 TABLET BY MOUTH EVERY DAY IN THE MORNING 90 Tablet 3 01/08/2024 Active Atorvastatin Calcium 10 MG Oral Tablet (Lipitor)Indicati ons:Dyslipidemia, goal LDL below 70 TAKE 1 TABLET BY MOUTH EVERY DAY 90 Tablet 3 03/11/2024 Active Fluticasone Propionate 50 MCG/ACT Nasal Suspension (Flonase)Indicati ons:Cough SPRAY 2 SPRAYS INTO EACH NOSTRIL EVERY DAY 48 mL 2 03/24/2024 Active Centrum Silver 50+Men Oral Tablet Take by mouth. Active OneTouch Verio w/Device KitIndications:Ty pe 2 diabetes mellitus with hemoglobin A1c goal of less than 8.0% ([facility]) Use up to check sugar first thing in am and 2 hours after meals 1 Kit 04/04/2024 Active Insulin Glargine Solostar 100 UNIT/ML Subcutaneous Solution Pen-injector (Lantus SoloStar)Indicati ons:Type 2 diabetes mellitus with hemoglobin A1c goal of less than 8.0% (HCC) Inject 10 Units under the skin daily. Titrating dose - max dose 30 units daily. DX: E11.9 5 Each 3 04/04/2024 Active Additional Information Patient taking differently: 9 UnitsSubcutaneous Daily(Non-Specified), Titrating dose - max dose 30 units daily. DX: E11.9, Reported on 05/31/2024 Insulin Pen Needle 32G X 6 MMIndications:Typ e 2 diabetes mellitus with hemoglobin A1c goal of less than 8.0% (HCC) Use to inject insulin once daily. 100 Each 3 04/04/2024 Active Colestipol HCl 1 GM Oral Tablet (Colestid) Take 1 Tablet by mouth in the morning. 30 Tablet 3 05/08/2024 Active OneTouch Verio In Vitro Strip (Glucose Blood)Indications :Type 2 diabetes mellitus with hemoglobin A1c goal of less than 8.0% (HCC) USE UP TO CHECK SUGARS FIRST THING IN AM AND 2 HOURS AFTER MEALS 100 Strip 1 05/22/2024 Active Slow Magnesium/Calcium 64-106 MG Oral Tablet Delayed Release (magnesium chloride)Indicati ons:Hypomagnesemi a Take 2 Tablets by mouth in the morning and 2 Tablets before bedtime. 05/22/2024 Active OneTouch Delica Plus [id number] ons:Type 2 diabetes mellitus with hemoglobin A1c goal of less than 8.0% (HCC) USE UP TO CHECK SUGAR FIRST THING IN AM AND 2 HOURS AFTER MEALS 100 Each 1 05/25/2024 Active Eliquis 5 MG Oral Tablet (Apixaban)Indicat ions:Persistent atrial fibrillation (HCC) TAKE 1 TABLET BY MOUTH TWICE A DAY 180 Tablet 1 05/28/2024 Active metFORMIN HCl ER 500 MG Oral Tablet Extended Release 24 Hour (Glucophage XR)Indications:Ty pe 2 diabetes mellitus with hemoglobin A1c goal of less than 8.0% (HCC) Take 2 Tablets by mouth 2 times a day with morning and evening meals. Begin with one tablet twice daily for one week then increase to two tablets twice daily. (Metformin on hold as of 06-05-24) 06/05/2024 Active Hospital, Clinic, or Other Facility Administered Medication Ordered Dose Route Frequency Start Date End Date Status Testosterone Cypionate (Depotestosterone Cypionate) 200 MG/ML inj 100 mgIndications:Hypogonadism, male 100 mg IM QMONTH 01/11/2021 Active documented as of this encounter (statuses as of 07/04/2024) Active Problems Problem Noted Date Diagnosed Date Hypomagnesemia 05/22/2024 Basal cell carcinoma (BCC) o f skin of left ear and external auditory canal 03/27/2024 Chronic diastolic congestive heart failure 03/22 Type 2 diabetes mellitus wit h hemoglobin A1c goal of less than 8.0% 08/24/2022 PAF (paroxysmal atrial fibrillation) 02/01/2022 Cardiac pacemaker in situ 11/19/2020 Stage 3a chronic kidney disease 11/02/2020 Overview: Per CKD protocol Left carotid stenosis 08/18/2020 S/P AVR (aortic valve replacement) 07/10/2020 Aortic valve regurgitation 03/03/2020 Heart failure, diastolic, due to HTN 03/03/2020 HTN, goal below 140/90 12/11/2018 LVH (left ventricular hypertrophy) 10/13/2017 Osteoarthritis of right hip 10/28/2013 Hypogonadism, male 03/19/2012 Esophageal reflux 09/05/2011 Incisional hernia 01/11/2011 Impotence of organic origin 08/08/2005 documented as of this encounter (statuses as of 07/04/2024) Resolved Problems Problem Noted Date Diagnosed Date Resolved Date Persistent atrial fibrillation 07/22/2020 02/01/2022 Postoperative anemia due to acute blood loss 0 03/24/2021 CKD (chronic kidney disease), stage III 07/10/2020 11/05/2020 Overview: Per CKD protocol Left carotid stenosis 07/10/20202020 Prediabetes 07/06/2020 08/24/2022 Overview: Per Prediabetes protocol Pulmonary nodule, right 02/04/201502/23 Other chronic cystitis 12/26/201403/06 Urinary retention 12/26/2014 03/24/2015 Overview: Chronic; unclear etiology. Dynamic outlet obstruction is a likely cause, but the cause of that is not clear. Adrenal mass, left 12/26/2014 2 Neurogenic bladder 10/20/2014 7 Arthritis, hip 08/05/2013 09/05/2017 BPH with obstruction/lower u rinary tract symptoms 10/02/2012 03/24/2015 Hx of actinic keratosis 08/27/201208/25 Panniculitis 03/07/2012 09/05/2017 Ventral hernia, unspecified, without mention of obstruction or gangrene 12/23/2010 09/05/2017 OSTEOARTHROS NOS-RIGHT HIP 10/08/2009 1 11/06/2016 ADVANCE DIRECTIVE INFORMATION 01/21/2008 09/26/2023 Overview: Yes, copy scanned at patient level in the electronic medical record. Patient aware they must notify their healthcare provider of changes. (Go to More Activities and Patient Files to view) 04/29/2011 NONSPECIF SKIN ERUPT NEC 01/17/2005 DIVERTICULITIS OF COLON 04/15/200402/23 documented as of this encounter (statuses as of 07/04/2024) Immunizations Name Administration Dates Next Due COVID-19 mRNA, LNP-s, No Pre serve, 2-Dose Series (utoopia) 06/29/2021,12/15/2020,11/24/2020 COVID-19, LNP-s, No Preserve , Deric-sucrose, Ages 12+ (Pfizer) 02/04/2022 COVID-19, MRNA-LNP, 23-24, P F, 30 MCG/0.3 mL, 12 YRS AND ABOVE, IM ([facility]) 10/10/2023 Covid-19, Mrna, Lnp-s, Pf, B ivalent, 30 Mcg, IM, 12 yrs and above (Pfizer) 03/02/2023 Hepatitis B, 20+ yrs 04/01/2024,2023,09/29 Pneumococcal Conjugate Vacc, 13 Valent (Prevnar) 02/08/2016 Pneumococcal Polysaccharide PPV23 (Pneumovax) 02/08/2012 RSV Vac., Bivalent, Perfusio n F, Pf,0.5 Ml (Abrysvo) 10/06/2023 Season Influenza, Quad, PF, Adjuvanted, 65+ Yrs, IM (FLUAD) 06/10/2020 Seasonal Influenza Vac., MDV , IM, 0.5 mL (Fluzone) 06/11/2015,06/27/2014,06/03/2013,06/13,05/27/2011,06/14/2010,07/29/2008 ,08/01/2007,08/02/2006 Seasonal Influenza, High Dos e, Trivalent, PF, IM (Fluzone HD) 06/06/2024 Seasonal Influenza, PF, 6 M & above, IM , (FluLaval or Fluzone) 06/28/2018,06/29/2017 Seasonal Influenza, Quadriva lent Hd (Fluzone Hd) 06/26/2023,06/09/2022,06/17/2021 Seasonal Influenza, Quadriva lent, No Preserve, IM 06/20/2016 Seasonal Influenza, Trivalen t, Adjuvanted, 65+ YRS, PF, (Fluad) 05/31/2019 TD, Preservative Free 09/07/2019 TDAP, Age 7 and older, IM (Adacel) 08/24/2009 Zoster Vaccine Recombinant (Shingrix) 10/09/2020 ,03/04/2020 documented as of this encounter Social History Tobacco Use Types Packs/Day Years Used Date Smoking Tobacco: Former Cigars Q uit: 04/17/2010 Smokeless Tobacco: Never Alcohol Use Standard Drinks/Week Comments Yes 5.8 (1 standard drin k = 0.6 oz pure alcohol) a glass in the evening on occasion PHQ-2 Answer Date Recorded PHQ Adult Total Score 0 03/27/2024 Hunger Vital Sign Answer Date Recorded Within the past 12 months, y ou worried that your food would run out before you got the money to buy more. Never true 08/23/20 22 Within the past 12 months, t he food you bought just didn't last and you didn't have money to get more. Never true 08/23/2022 Utilities Answer Date Recorded Do you have trouble paying y our heating, water, or electric bill? (Adult - for ages 18 years and over) Not on file 03/12/2024 Is your family able to pay t he heat, water, or electric bill? (Household - for ages 0-17 years) Not on file 03/12/2024 Does your family have access to good internet? (Household - for ages 0-17 years) Not on file 03/12/2024 Social Connections Answer Date Recorded How often do you feel lonely or isolated from those around you? (Adult - for ages 18 years and over) Not on file 03/12/2024 Sex and Gender Information Value Date Recorded Sex Assigned at Male 11/21/2019 2:55 PM EST Gender Identity Male 11/21/2019 2:55 PM EST Sexual Orientation Choose not to disclose 2019 2:55 PM EST Job Start Date Occupation Industry Not on file Not on file Not on file documented as of this encounter Functional Status Functional Status Response Date of Assess ment Are you deaf or do you have serious difficulty h earing? No 07/10/2020 Are you blind or do you have serious difficulty seeing, even when wearing glasses? No 07/10/2020 Do you have serious difficul ty walking or climbing stairs? (5 years old or older) No 07/12/2020 Do you have difficulty dress ing or bathing? (5 years old or older) No 07/10/2020 Because of a physical, menta l, or emotional condition, do you have difficulty doing errands alone such as visiting a doctor s office or shopping? (15 years old or older) No 07/10/20 20 Cognitive Status Response Date of Assessm ent Because of a physical, menta l, or emotional condition, do you have serious difficulty concentrating, remembering, or making decisions? (5 years old or older) No 07/10/2020 documented as of this encounter Plan of Treatment Upcoming Encounters Date Type Department Care Team (Late st Contact Info) Description 07/08/2024 2:30 PM EDT Office Visit Pharmacy, [facility] [address] [place] [address] Pharmacist2, [facility] [address] [place] [address] 07/08/2024 3:00 PM EDT Nurse Only Ancillary [facility] [address] [place] [address] Nurse, Int Med [address] [place] [address] 08/28/2024 1:30 PM EST Office Visit Gastroenterology, [facility] [address] [place] [address] Rain Medellin CRNP [address] [place] [address] 09/09/2024 3:00 PM EST Office Visit Nephrology, [facility] [address] [place] [address] Isa Long MD [address] [facility] [place] [address] 11/14/2024 2:00 PM EST Office Visit General Internal Medicine [facility] [address] [place] [address] Lokesh Amin MD [address] [place] [address] [place] [address] 11/14/2024 3:45 PM EST Office Visit MOHS Surgery [facility] [address] [facility] [place] [address] Becky Gordon MD [address] [place] [address] [place] [address] 03/18/2025 10:45 AM EDT Office Visit Dermatology [facility] [address] [facility] [place] [address] Lokesh Mayen MD [address] [place] [address] [place] [address] Pending Results Name Type Priority Associated Diagnoses Date /Time MAGNESIUM Lab Routine Type 2 diabetes mellitus with hemoglobin A1c goal of less than 8.0% (HCC) Hypomagnesemia 07/04/2024 3:28 PM EDT Scheduled Procedures Name Priority Associated Diagnoses Date/Ti me COLONOSCOPY FLEXIBLE PROXIMAL DIAGNOSTIC Recall Colon cancer screening Health Maintenance Due Date Last Done Comments Adult Wellness Visit 07/07/2017 07/07/2016 COVID-19 Vaccine ( season) 2024 10/10/2023, 03/02/2023, 02/04/2022, Additional history exists Diabetic Eye Exam 08/01/2024 08/01/2023, , 07/25/2005 Albumin/Creatinine Ratio 09/26/2024 09/26/2023, 07/27 HbA1c 10/16/2024 04/15/2024, 07/11/2023, 09/26/2023, Additional history exists GFR 11/26/2024 05/29/2024, 04/26, 05/21/2024, Additional history exists Depression Screening 03/27/2025 03/27/2024 Diabetic Foot Exam 03/27/2025 03/27/2024, 02/21/2023 CKD HGB USE SMARTSET 98011 04/26/202504/26, 04/26/2024, 04/15/2024, Additional history exists CKD PHOS USE SMARTSET 96924 05/29/2025 09/0 12/2023, 03/27/2024, 09/26/2023, Additional history exists DTap/Tdap Vaccines (3 - Td or Tdap) 09/07/2029 09/07/2019, 08/24/2009 Pneumococcal Vaccine: 65+ Years Completed 02/08/2016, 02/08/2012, 08/18/2004 Zoster Vaccines Completed 10/09/2020, 03/04/2020 Hepatitis B Vaccine Completed 04/01/2024, 2023, 09/29/2023 Influenza Vaccine (FLU shot) Completed 08/2024, 06/26/2023, 06/09/2022, Additional history exists HPV (Gardasil) Vaccine Aged Out No lo nger eligible based on patient's age to complete this topic MENINGOCOCCAL (MENACTRA/MENVEO) Aged Out No longer eligible based on patient's age to complete this topic documented as of this encounter Medical Devices Implanted Type Area Professor Of Physical Education Device Identifier Shelf Expiration Date Model / Serial / Lot Strattice [id number] (400 Units) - [id number] Implanted:Qty : 400 on 10/25/2011 at OR [facility] [place] Abdomen [employer] MISTY 12/23/2012 [id number] / / [id number] Mesh Prolit Hernia [id number] - [id number] Implanted:Qty : 1 on 08/14/2012 at OR [facility] [place] Left: Abdomen [employer] 12/24/2015 [id number] / / [id number] Suture Steel 6 B&S19 M654g - [id number] Implanted:Qty : 3 on 07/10/2020 by Ag Ballesteros MD at OR [facility] [place] N/A: Sternum JNJ : [employer] 02/22/2025 [id number] / / [id number] Valve Heart Aortic Epic 23mm - [id number] - [id number] Implanted:Qty : 1 on 07/10/2020 by Ag Ballesteros MD at OR [facility] [place] N/A: Aorta ST DOMINIK : CARDIOVASCULAR [id number] 03/22/2024 [id number] / [id number] / [id number] documented as of this encounter Visit Diagnoses Diagnosis Type 2 diabetes mellitus with hemoglobin A1c goal of less than 8.0% ([facility]) Hypomagnesemia Disorders of magnesium metabolism documented in this encounter Advance Directives * Full Code (Latest Code Status on File) Date Activated Date Inactivated Comments 07/10/2020 3:38 PM 07/15/2020 5:10 PM Question Answer Comments Discussion of Advance Directives occurred with: Not Discussed * Full Code Date Activated Date Inactivated Comments 01/27/2015 9:46 AM 01/27/2015 4:12 PM This order ref lects the patients wishes and were consensually agreed upon. Question Answer Comments Discussion of Advance Directives occurred with: Not Discussed * Full Code Date Activated Date Inactivated Comments 01/27/2015 6:37 AM 01/27/2015 9:46 AM This order ref lects the patients wishes and were consensually agreed upon. * Full Code Date Activated Date Inactivated Comments 08/15/2012 7:14 PM 08/17/2012 6:03 PM This order reflects the patients wishes and were consensually agreed upon. Question Answer Comments Discussion of Advance Directives occurred with: Not Discussed Does the patient have a Living Will? No Does the patient have Health Care Power of Attor shawn? No * Full Code Date Activated Date Inactivated Comments 10/25/2011 5:53 PM 10/27/2011 10:01 PM This order r eflects the patients wishes and were consensually agreed upon. Care Teams Lapel Stitcher Relationship Specialty Start Date End Date Lokesh Amin MD [address] [place] [address], [place] [address] PCP - General Internal Medicine 07/22/21 documented as of this encounter
--- OUTSIDE RECORDS SUMMARY | 2024-07-19 11:31 | External Medical Summary | Summary of Care ---
Author Name Unknown Organization [facility] Address [address] [place] [address] Phone [phone] Care Team Providers Care Outreach Analyst Name Role Phone Lokesh Amin MD Primary Care Provider + Reason for Visit * Reason Comments Dosage Adjustment In Person (Anticoag Cl inic) Diabetes Management Encounter Details Date Type Department Care Team (Late st Contact Info) Description 07/08/2024 2:30 PM EDT Office Visit Pharmacy, [facility] [address] [place] [address] Pharmacist2, [facility] [address] [place] [address] Type 2 diabetes mellitus with hemoglobin A1c goal of less than 8.0% ([facility])* Allergies Active Allergy Reactions Criticality Noted Date Comments Demerol Neuro complications (Please comment) High 06/14/2010 confusion Adhesive Tape Rash Low 06/14/2010 documented as of this encounter (statuses as of 07/08/2024) Medications Medication Sig Dispensed Refills Start Date [...] hemoglobin A1c goal of less than 8.0% ([facility]) Use up to check sugar first thing [...] before bedtime. 05/22/2024 Active OneTouch Delica Plus [id number] ons:Type 2 diabetes mellitus with hemoglobin A1c [...] as of this encounter (statuses as of 07/08/2024) Active Problems Problem Noted Date Diagnosed Date [...] as of this encounter (statuses as of 07/08/2024) Resolved Problems Problem Noted Date Diagnosed Date [...] as of this encounter (statuses as of 07/08/2024) Immunizations Name Administration Dates Next Due COVID-19 mRNA, LNP-s, No Pre serve, 2-Dose Series ([employer]) 06/29/2021,12/15/2020,11/24/2020 COVID-19, LNP-s, No Preserve , Deric-sucrose, Ages 12+ (Pfizer) 02/04/2022 COVID-19, MRNA-LNP, 23-24, P F, 30 MCG/0.3 mL, 12 YRS AND ABOVE, IM ([facility]) 10/10/2023 Covid-19, Mrna, Lnp-s, Pf, B ivalent, [...] No 07/10/2020 documented as of this encounter Progress Notes * [place], [facility] - 07/08/2024 2:39 PM EDT Medication Therapy Disease Management Clinic - Diabetes Management Progress Note Jhon Nelson, identified by name and date of , is a 78 year old male being seen for diabetes management/education. Patient presents for return diabetic visit. DIABETES: Current diabetic medications: STOPPED: Metformin ER 500mg 1 tablet twice daily - low Magnesium DECREASE: Lantus 8 units daily Medication Injection Site: Abdomen Lifestyle: Diet: unchanged Glucose Review/SMBG: Readings obtained from patient device Pre am Post am Pre Lunch Post Lunch Pre pm Post pm HS 104 89 76 131 124 99 79 144 105 128 105 203 89 163 89 147 96 122 90 115 120 133 90 184 128 93 89 153 120 93 102 116 107 Pre am Post am Pre Lunch Post Lunch Pre pm Post pm HS Average 111 #DIV/0! 115 #DIV/0! 90 #DIV/0! 154 Hi 128 0 163 0 105 0 203 Lo 89 0 89 0 76 0 115 Range 39 0 74 0 29 0 88 Hypoglycemia: Does your blood sugar go below 70 mg/dL? No Hyperglycemia symptoms present: none Recent Labs Units 04/15/24 1459 03/27/24 1234 09/26/23 1425 HEMOGLOBIN A1C - [facility] % 11.7* 12.4* 6.7* Recent Labs Units 05/29/24 1335 05/23/24 1534 05/21/24 1235 ESTIMATED GLOMERULAR FILTRATION RATE - [facility] mL/min 57* 54* 57* CREATININE - [facility] mg/dL 1.3* 1.4* 1.3* HYPERTENSION: Patient on ACEi/ARB: no, BP controlled BP Readings from Last 3 Encounters: 05/31/24 112/71 05/22/24 98/64 05/08/24 102/68 Blood pressure at goal: yes HYPERLIPIDEMIA: Recent Labs Units 04/15/24 1459 06/26/23 1025 02/28/23 1016 LDL CHOLESTEROL (CALCULATED) - [facility] mg/dL 13 36 -- LDL CHOLESTEROL (DIRECT MEASURE) - [facility] mg/dL -- -- 91 Does patient have clinical ASCVD? No, is patient LDL less than 70mg/dL? Yes HEALTH MAINTENANCE REVIEW: Health Maintenance Due Topic Date Due Adult Wellness Visit 07/07/2017 COVID-19 Vaccine () 05/26/2024 Diabetic Eye Exam 08/01/2024 Albumin/Creatinine Ratio 09/26/2024 ASSESSMENT & PLAN: ICD-10-CM 1. Type 2 diabetes mellitus with hemoglobin A1c goal of less than 8.0% ([facility]) E11.9 BG Readings - Blood sugars controlled. BG log shows readings averaging between 110 and 150 Medications - Reviewed current regimen, patient is adherent to regimen. Diet, Exercise, Lifestyle - No significant lifestyle changes since last visit. Patient is agreeable to SMBG 4 time(s) daily. Patient aware to contact clinic if any hypoglycemia before next visit. MEDICATION CHANGES: no change Diabetic Medications: Lantus 8 units daily HEALTH MAINTENANCE INTERVENTIONS: Labs: Ordered & Scheduled: HgA1c, BMP/CMP, and Urine Microalbumin Immunizations: Up to Date Foot Exam: Up to Date Eye Exam: Up to Date Annual Wellness Visit: Due FOLLOW UP: Return to clinic in 4 weeks 09/09/2024 I spent a total of 30-39 minutes (exact time 30 mins) on the date of service in preparation, delivery, and documentation of the care provided to Jhon Nelson excluding any time spent in the performance of separately billed services. [facility] [place] [facility] Clinical Pharmacist - Scrap Preparation Supervisor Medication Therapy Management Clinic 07/08/2024, 2:39 PM documented in this encounter Plan of Treatment Upcoming Encounters Date Type Department Care Team (Late st Contact Info) Description 08/09/2024 10:00 AM EST Office Visit Pharmacy, [facility] [address] [place] [address] Pharmacist1, [facility] [address] [place] [address] 08/09/2024 11:00 AM EST Nurse Only Ancillary [facility] [address] [place] [address] [address] Nurse, Int Med [address] [place] [address] [address] 08/28/2024 1:30 PM EST Office Visit Gastroenterology, [facility] [address] [employer] [place] [address] Rain Medellin CRNP [facility] [place] [address] 09/09/2024 2:00 PM EST Office Visit Pharmacy, [facility] [address] [place] [address] [address] Pharmacist1, [facility] [address] [place] [address] 09/09/2024 3:00 PM EST Office Visit Nephrology, [facility] [address] [place] [address] Isa Long MD [address] [place] [address] [place] [address] 11/14/2024 2:00 PM EST Office Visit General Internal Medicine [facility] [address] [place] [address] Lokesh Amin MD 200 [place] [address] 11/14/2024 3:45 PM EST Office Visit MOHS Surgery [facility] [address] [place] [address] Becky Gordon MD 200 [facility] [place] [address] 03/18/2025 10:45 AM EDT Office Visit Dermatology [facility] [address] [place] [address] Lokesh Mayen MD 200 [facility] [place] [address] Scheduled Orders Name Type Priority Associated Diagnoses Orde r Schedule HEMOGLOBIN A1C Lab Routine Type 2 diabetes mellitus with hemoglobin A1c goal of less than 8.0% (HCC) Expected: 07/08/2024 (Approximate), Expires: 07/08/2025 BASIC METABOLIC PANEL Lab Routine Type 2 diabetes mellitus with hemoglobin A1c goal of less than 8.0% (HCC) Expected: 07/08/2024 (Approximate), Expires: 07/08/2025 ALBUMIN / CREATININE RATIO, URINE Lab Routine Type 2 diabetes mellitus with hemoglobin A1c goal of less than 8.0% (HCC) Expected: 07/08/2024, Expires: 07/08/2025 Scheduled Procedures Name Priority Associated Diagnoses Date/Ti me COLONOSCOPY FLEXIBLE PROXIMAL DIAGNOSTIC Recall Colon cancer screening Health Maintenance Due Date Last Done Comments Adult Wellness Visit 07/07/2017 07/07/2016 COVID-19 Vaccine ( season) 2024 10/10/2023, 03/02/2023, 02/04/2022, Additional history exists Diabetic Eye Exam 08/01/2024 08/01/2023, , 07/25/2005 Albumin/Creatinine Ratio 09/26/2024 09/26/2023, 07/27 HbA1c 10/16/2024 04/15/2024, 0711/2023, 09/26/2023, Additional history exists GFR 11/26/2024 05/29/2024, 04/26, 05/21/2024, Additional history exists Depression Screening 03/27/2025 03/27/2024 Diabetic Foot Exam 03/27/2025 03/27/2024, 02/21/2023 CKD HGB USE SMARTSET 17327 04/26/202504/26, 04/26/2024, 04/15/2024, Additional history exists CKD PHOS USE SMARTSET 78171 05/29/2025 090 12/2023, 03/27/2024, 09/26/2023, Additional history exists DTap/Tdap [...] this encounter Medical Devices Implanted Type Area Freight Air Brake Fitter Device Identifier Shelf Expiration Date Model / Serial / Lot Strattice [id number] (400 Units) - [id number] Implanted:Qty : 400 on 10/25/2011 at [place] [facility] [place] Abdomen LIFE CELL MISTY 12/23/2012 [id number] / / [id number] Mesh Prolit Hernia [id number] - [id number] Implanted:Qty : 1 on 08/14/2012 at [place] [facility] [place] Left: Abdomen [employer] MIST[employer] 12/24/2015 [id number] / / [id number] Suture Steel 6 B&S19 M654g - [id number] Implanted:Qty : 3 on 07/10/2020 by Ag Ballesteros MD at [facility] N/A: Sternum JNJ : [employer] 02/22/2025 [id number] / / [id number] Valve Heart Aortic Epic 23mm - [id number] - [id number] Implanted:Qty : 1 on 07/10/2020 by Ag Ballesteros MD at [place] [facility] [place] N/A: Aorta ST DOMINIK : CARDIOVASCULAR [id number] 03/22/2024 [id number] / [id number] / [id number] documented as of this encounter Visit Diagnoses Diagnosis Type 2 diabetes mellitus with hemoglobin A1c goal of less than 8.0% ([facility])- Primary documented in this encounter Advance Directives * [...] and were consensually agreed upon. Care Teams Outreach Analyst Relationship Specialty Start Date End Date Lokesh Amin MD [address] [place] [address] PCP - General Internal Medicine 07/22/21 documented as of this encounter
--- OUTSIDE RECORDS SUMMARY | 2024-07-19 11:31 | External Medical Summary | Summary of Care ---
Author Name Unknown Organization [facility] Address [address] [place] [address] Phone [phone] Care Team Providers Care Director Of Fundraising Name Role Phone Lokesh Amin MD Primary Care Provider + Reason for Visit * Reason Comments Medication Administration testosterone Encounter Details Date Type Department Care Team (Late st Contact Info) Description 07/08/2024 3:00 PM EDT Nurse Only Ancillary [facility] [place] [address] [place] [address] Nurse, [facility] [address] Medication Administration (testosterone) Allergies Active Allergy Reactions Criticality Noted Date [...] hemoglobin A1c goal of less than 8.0% ([facility]) Use up to check sugar first thing [...] before bedtime. 05/22/2024 Active OneTouch Delica Plus [id number] ons:Type 2 diabetes mellitus with hemoglobin A1c [...] mRNA, LNP-s, No Pre serve, 2-Dose Series ([employer]) 06/29/2021,12/15/2020,11/24/2020 COVID-19, LNP-s, No Preserve , Deric-sucrose, Ages 12+ ([employer]) 02/04/2022 COVID-19, MRNA-LNP, 23-24, P F, 30 MCG/0.3 mL, 12 YRS AND ABOVE, IM ([employer]) 10/10/2023 Covid-19, Mrna, Lnp-s, Pf, B ivalent, [...] No 07/10/2020 documented as of this encounter Nursing Notes * Jose Javier RN - 07/08/2024 3:06 PM EDT Pre-Administration Time Out Procedure Performed: Yes Patient Identified (Ask Name/Date of ): Yes Does the patient have a fever greater than 101 degrees today? No Patient allergic to latex? No Has the patient ever fainted after receiving an injection? No VFC Stock: No Injection(s) verified: Yes, Injection Name: Testosterone 100 mg Verified Side and Site: Yes Verified Shot(s) with Parent(s)/Patient: Yes documented in this encounter Plan of Treatment Upcoming Encounters Date Type Department Care Team (Late st Contact Info) Description 08/09/2024 10:00 AM EST Office Visit Pharmacy, [facility] [place] [address] [facility] [place] [address] Pharmacist1, [facility] [address] [facility] [place], [place] [address] 08/09/2024 11:00 AM EST Nurse Only Ancillary [facility] [place] [address] [place] [address] Nurse, Int Med [address] [place], [place] [address] 08/28/2024 1:30 PM EST Office Visit Gastroenterology, [facility] [address] [place] [address] Rain Medellin CRNP [address] [facility] [place] [address] 09/09/2024 2:00 PM EST Office Visit Pharmacy, [facility] [address] [place] [address] Pharmacist1, [facility] [address] [facility] [place], [place] [address] 09/09/2024 3:00 PM EST Office Visit Nephrology, [facility] 200 [facility] [place], [place] [address] Isa Long MD [address] [place] [address] 11/14/2024 2:00 PM EST Office Visit General Internal Medicine [facility] 200 [facility] [place], [place] [address] Lokesh Amin MD 200 [facility] [place] [address] 11/14/2024 3:45 PM EST Office Visit MOHS Surgery [facility] [address] [place], [place] [address] Becky Gordon MD 200 [facility] [place] [address] 03/18/2025 10:45 AM EDT Office Visit Dermatology [facility] [place] [address] [place] [address] Lokesh Mayen MD [facility] [place] [address] Scheduled Procedures Name Priority Associated Diagnoses Date/Ti [...] 03/27/2025 03/27/2024, 02/21/2023 CKD HGB USE SMARTSET 57989 04/26/202504/26, 04/26/2024, 04/15/2024, Additional history exists CKD PHOS USE SMARTSET 57852 05/29/2025 09/0 12/2023, 03/27/2024, 09/26/2023, Additional history [...] this encounter Medical Devices Implanted Type Area Crepe Sole Wire Brusher Device Identifier Shelf Expiration Date Model / Serial / Lot Strattice [id number] (400 Units) - [id number] Implanted:Qty : 400 on 10/25/2011 at [place] [facility] [place] Abdomen LIFE CELL MISTY 12/23/2012 [id number] / / [id number] Mesh Prolit Hernia [id number] - [id number] Implanted:Qty : 1 on 08/14/2012 at OR [facility] [place] Left: Abdomen [employer] M[employer] 12/24/2015 [id number] / / [id number] Suture Steel 6 B&S19 M654g - [id number] Implanted:Qty : 3 on 07/10/2020 by Ag Ballesteros MD at OR [facility] [place] N/A: Sternum JNJ : [employer] 02/22/2025 M654G / / [id number] Valve Heart Aortic Epic 23mm - [id number] - [id number] Implanted:Qty : 1 on 07/10/2020 by Ag Ballesteros MD at [place] [facility] [place] N/A: Aorta ST DOMINIK : CARDIOVASCULAR [id number] 03/22/2024 [id number] 00 / [id number] / [id number] documented as of this encounter Visit Diagnoses Diagnosis 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 Care Teams Director Of Fundraising Relationship Specialty Start Date End Date Lokesh Amin MD 200 [facility] [place] [address] PCP - General Internal Medicine 07/22/21 documented as of this encounter
--- OUTSIDE RECORDS SUMMARY | 2024-07-19 11:31 | External Medical Summary | Summary of Care ---
Author Name Unknown Organization [facility] Address [address] [place] [address] Phone [phone] Care Team Providers Care Thermodynamics Teacher Name Role Phone Lokesh Amin MD Primary Care Provider + Encounter Details Date Type Department Care Team (Late st Contact Info) Description 07/15/2024 Orders Only Outcomes Research Department [address] [place] [address] Edwige Ca CHRA [employer] Other*[id number] Allergies Active Allergy Reactions Criticality Noted Date Comments Demerol Neuro complications (Please comment) High 06/14/2010 confusion Adhesive Tape Rash Low 06/14/2010 documented as of this encounter (statuses as of 07/15/2024) Medications Medication Sig Dispensed Refills Start Date [...] goal of less than 8.0% (HCC) Use up to check sugar first thing [...] before bedtime. 05/22/2024 Active OneTouch Delica Plus [id number] ons:Type 2 diabetes mellitus with hemoglobin A1c [...] as of this encounter (statuses as of 07/15/2024) Active Problems Problem Noted Date Diagnosed Date [...] as of this encounter (statuses as of 07/15/2024) Resolved Problems Problem Noted Date Diagnosed Date [...] as of this encounter (statuses as of 07/15/2024) Immunizations Name Administration Dates Next Due COVID-19 mRNA, LNP-s, No Pre serve, 2-Dose Series ([facility]) 06/29/2021,12/15/2020,11/24/2020 COVID-19, LNP-s, No Preserve , Deric-sucrose, Ages 12+ (Pfizer) 02/04/2022 COVID-19, MRNA-LNP, 23-24, P F, 30 MCG/0.3 mL, 12 YRS AND ABOVE, IM ([facility] 10/10/2023 Covid-19, Mrna, Lnp-s, Pf, B ivalent, 30 Mcg, IM, 12 yrs and above ([facility]) 03/02/2023 Hepatitis B, 20+ yrs 04/01/2024,2023,09/29 Pneumococcal [...] 08/09/2024 10:00 AM EST Office Visit Pharmacy, [facility] [address] [facility] [place] [address] Pharmacist1, [facility] [address] [place] [address] 08/09/2024 11:00 AM EST Nurse Only Ancillary [facility] [address] [place] [address] Nurse, Int Med [address] [place] [address] 08/28/2024 1:30 PM EST Office Visit Gastroenterology, [facility] [address] [place] [address] Rain Medellin CRNP [address] [place] [address] 09/09/2024 2:00 PM EST Office Visit Pharmacy, [facility] [address] [facility] [place] [address] Pharmacist1, [facility] 200 [facility] [place] [address] 09/09/2024 3:00 PM EST Office Visit Nephrology, [facility] [address] [facility] [place] [address] Isa Long MD [address] [place] [address] 11/14/2024 2:00 PM EST Office Visit General Internal Medicine [facility] [address] [facility] [place] [address] Lokesh Amin MD 200 [facility] [place] [place] [address] 11/14/2024 3:45 PM EST Office Visit MOHS Surgery [facility] 200 [place] [address] Becky Gordon MD [address] [facility] [place] [address] 03/18/2025 10:45 AM EDT Office Visit Dermatology [facility] [address] [facility] [place] [address] Lokesh Mayen MD [address] [facility] [place] [address] Scheduled Orders Name Type Priority Associated Diagnoses Orde r Schedule MYCODE SUBSEQUENT ADULT Lab Routine MyCode Research Other*[id number] Every 6 Months for 2 Occurrences starting 07/15/2024 until 08/04/2025 Scheduled Procedures Name Priority Associated Diagnoses Date/Ti [...] 03/27/2025 03/27/2024, 02/21/2023 CKD HGB USE SMARTSET 47048 04/26/202504/26, 04/26/2024, 04/15/2024, Additional history exists CKD PHOS USE SMARTSET 22165 05/29/2025 09/0 12/2023, 03/27/2024, 09/26/2023, Additional history [...] this encounter Medical Devices Implanted Type Area Geologic Technician Device Identifier Shelf Expiration Date Model / Serial / Lot Omegattice [id number] (400 Units) - [id number] Implanted:Qty : 400 on 10/25/2011 at [place] [facility] [place] Abdomen LIFE CELL MISTY 12/23/2012 [id number] / / [id number] Mesh Prolit Hernia [id number] - [id number] Implanted:Qty : 1 on 08/14/2012 at OR [facility] [place] Left: Abdomen [employer] M[employer] 12/24/2015 [id number] / / [id number] Suture Steel 6 B&S19 M654g - [id number] Implanted:Qty : 3 on 07/10/2020 by Ag Ballesteros MD at OR [facility] [place] N/A: Sternum JNJ : [employer] 02/22/2025 M654G / / [id number] Valve Heart Aortic Epic 23mm - [id number] - [id number] Implanted:Qty : 1 on 07/10/2020 by Ag Ballesteros MD at [place] [facility] [place] N/A: Aorta ST DOMINIK : CARDIOVASCULAR [id number] 03/22/2024 [id number] 00 / [id number] / [id number] documented as of this encounter Visit Diagnoses Diagnosis [employer] Research Other*[id number] documented in this encounter Advance Directives * [...] and were consensually agreed upon. Care Teams Thermodynamics Teacher Relationship Specialty Start Date End Date Lokesh Amin MD [address] [place] [address] PCP - General Internal Medicine 07/22/21 documented as of this encounter
--- OUTSIDE RECORDS SUMMARY | 2024-07-19 11:31 | External Medical Summary ---
Author Name Unknown Address Unknown Organization K01:[facility] - [address] [place] [address] Laboratory Report Ordering Provider Test Date Status ANUJ POST 07/04/2024 15:28:33 Final Observation Date Value Abnormality Reference (Units ) Status Magnesium 07/04/2024 15:28:33 2.1 1.5-2.6 (m g/dL) Final Performing Location [facility] - [address] [place] [address]
--- OUTSIDE RECORDS SUMMARY | 2024-07-19 11:31 | External Medical Summary | Summary of Care ---
Author Name Unknown Organization [facility] Address [address] [place] [address] Phone [phone] Care Team Providers Care Director Of Culture Name Role Phone Lokesh Amin MD Primary Care Provider + Reason for Visit * Reason Onset Date Comments Forms Request 07/12/2024 Encounter Details Date Type Department Care Team (Late st Contact Info) Description 07/12/2024 Telephone General Internal Medicine [facility] 200 [place] [address] Lokesh Amin MD 200 [place] [address] Forms Request Allergies Active Allergy Reactions Criticality Noted Date Comments Demerol Neuro complications (Please comment) High 06/14/2010 confusion Adhesive Tape Rash Low 06/14/2010 documented as of this encounter (statuses as of 07/12/2024) Medications Medication Sig Dispensed Refills Start Date [...] hemoglobin A1c goal of less than 8.0% ([facility]) Use up to check sugar first thing in am and 2 hours after meals 1 Kit 04/04/2024 Active Insulin Glargine Solostar 100 UNIT/ML Subcutaneous Solution Pen-injector (Lantus SoloStar)Indicati ons:Type 2 diabetes mellitus with hemoglobin A1c goal of less than 8.0% ([facility]) Inject 10 Units under the skin daily. [...] before bedtime. 05/22/2024 Active OneTouch Delica Plus [id number] ons:Type 2 diabetes mellitus with hemoglobin A1c [...] as of this encounter (statuses as of 07/12/2024) Active Problems Problem Noted Date Diagnosed Date [...] as of this encounter (statuses as of 07/12/2024) Resolved Problems Problem Noted Date Diagnosed Date [...] as of this encounter (statuses as of 07/12/2024) Immunizations Name Administration Dates Next Due COVID-19 mRNA, LNP-s, No Pre serve, 2-Dose Series (AgentPair) 06/29/2021,12/15/2020,11/24/2020 COVID-19, LNP-s, No Preserve , Deric-sucrose, Ages 12+ (Pfizer) 02/04/2022 COVID-19, MRNA-LNP, 23-24, P F, 30 MCG/0.3 mL, 12 YRS AND ABOVE, IM ([employer] 10/10/2023 Covid-19, Mrna, Lnp-s, Pf, B ivalent, [...] No 07/10/2020 documented as of this encounter Miscellaneous Notes * Telephone Encounter - Jose Javier RN - 07/12/2024 4:30 PM EDT Signed form from [facility] faxed to them at [phone] with confirmation. Form sent to scanning. documented in this encounter Plan of Treatment Upcoming Encounters Date Type Department Care Team (Late st Contact Info) Description 08/09/2024 10:00 AM EST Office Visit Pharmacy, [facility] [address] [place] [address] Pharmacist1, [facility] [address] [place] [address] 08/09/2024 11:00 AM EST Nurse Only Ancillary [facility] [address] [place] [address] Nurse, Int Med [address] [facility] [place] [address] 08/28/2024 1:30 PM EST Office Visit Gastroenterology, [facility] [address] [place] [address] Rain Medellin CRNP [address] [facility] [place] [address] 09/09/2024 2:00 PM EST Office Visit Pharmacy, [facility] [address] [place] [address] Pharmacist1, [facility] [address] [place] [address] 09/09/2024 3:00 PM EST Office Visit Nephrology, [facility] [place] [address] Isa Long MD [address] [place] [address] 11/14/2024 2:00 PM EST Office Visit General Internal Medicine [facility] [address] [place] [address] Lokesh Amin MD 200 [facility] [place] [place] [address] 11/14/2024 3:45 PM EST Office Visit MOHS Surgery [facility] [address] [facility] [place] [address] Becky Gordon MD 200 [facility] [place] [address] 03/18/2025 10:45 AM EDT Office Visit Dermatology [facility] [address] [place] [address] Lokesh Mayen MD [address] [place] [address] Scheduled Procedures Name Priority Associated Diagnoses Date/Ti me COLONOSCOPY FLEXIBLE PROXIMAL DIAGNOSTIC Recall Colon cancer screening Health Maintenance Due Date Last Done Comments Adult Wellness Visit 07/07/2017 07/07/2016 COVID-19 Vaccine ( season) 2024 10/10/2023, 03/02/2023, 02/04/2022, Additional history exists Diabetic Eye Exam 08/01/2024 08/01/2023, , 07/25/2005 Albumin/Creatinine Ratio 09/26/2024 09/26/2023, 07/27 HbA1c 10/16/2024 04/15/2024, 11/2023, 09/26/2023, Additional history exists GFR 11/26/2024 05/29/2024, 04/26, 05/21/2024, Additional history exists Depression Screening 03/27/2025 03/27/2024 Diabetic Foot Exam 03/27/2025 03/27/2024, 02/21/2023 CKD HGB USE SMARTSET 66755 04/26/202504/26, 04/26/2024, 04/15/2024, Additional history exists CKD PHOS USE SMARTSET 59657 05/29/2025 090 12/2023, 03/27/2024, 09/26/2023, Additional history [...] this encounter Medical Devices Implanted Type Area Design Printer Balloon Device Identifier Shelf Expiration Date Model / Serial / Lot Korey [id number] (400 Units) - [id number] Implanted:Qty : 400 on 10/25/2011 [place] [facility] [place]domen LIFE CELL MISTY 12/23/2012 / / [id number] Mesh Prolit Hernia [id number] - [id number] Implanted:Qty : 1 on 08/14/2012 at [place] [facility] [place] Left: Abdomen [employer] 12/24/2015 [id number] / / [id number] Suture Steel 6 B&S19 M654g - [id number] Implanted:Qty : 3 on 07/10/2020 by Ag Ballesteros MD at [place] [facility] [place] N/A: Sternum JNJ : [employer] 02/22/2025 M654G / / [id number] Valve Heart Aortic Epic 23mm - [id number] - [id number] Implanted:Qty : 1 on 07/10/2020 by Ag Ballesteros MD at [place] [facility] [place] N/A: Aorta ST DOMINIK : CARDIOVASCULAR [id number] 03/22/2024 [id number] 00 / [id number] / [id number] documented as of this encounter Advance Directives * Full Code [...] consensually agreed upon. Care Teams Director Of Culture Relationship Specialty Start Date End Date Lokesh Amin MD 200 [place] [address] PCP - General Internal Medicine 07/22/21 documented as of this encounter
--- OUTSIDE RECORDS SUMMARY | 2024-07-19 11:32 | External Medical Summary ---
Author Name Unknown Address Unknown Organization K01:[facility] - [address] [place] [address] Laboratory Report Ordering Provider Test Date Status ANUJ POST 06/13/2024 14:37:42 Final Observation Date Value Abnormality Reference (Units ) Status Magnesium 06/13/2024 14:37:42 2.3 1.5-2.6 (m g/dL) Final Performing Location [facility] - [address] [place] [address]
--- OUTSIDE RECORDS SUMMARY | 2024-07-19 11:32 | External Medical Summary ---
Author Name Unknown Address Unknown Organization K01:[facility] - [address] [place] [address] Laboratory Report Ordering Provider Test Date Status MICHAEL TRACY 06/28/2024 15:08:16 Final Observation Date Value Abnormality Reference (Units ) Status MYCODE SPECIMEN-SST 06/28/2024 15:08:16 Freezing of extracted DNA, whole blood and/or serum. Final Performing Location [facility]ATORY [facility] - [address] [place] [address]
--- OUTSIDE RECORDS SUMMARY | 2024-07-19 11:32 | External Medical Summary | Summary of Care ---
Author Name Unknown Organization [facility] Address [address] [place] [address] Phone [phone] Care Team Providers Care Exhibits Coordinator Name Role Phone Lokesh Amin MD Primary Care Provider + Reason for Visit * Reason Onset Date Comments Test Results 06/05/2024 Encounter Details Date Type Department Care Team (Late st Contact Info) Description 06/05/2024 Telephone Nephrology, [address] [address] Isa Long MD [address] [place] [address] Test Results Allergies Active Allergy Reactions Criticality Noted Date Comments Demerol Neuro complications (Please comment) High 06/14/2010 confusion Adhesive Tape Rash Low 06/14/2010 documented as of this encounter (statuses as of 06/12/2024) Medications Medication Sig Dispensed Refills Start Date End Date Status GINKOBA 40 MG OR TABS 0 05/10/20 04 Active GLUCOSAMINE CHONDROITIN OR TABSIndications: Pain in limb tid 90 5 08/08/20 05 Active Additional Information Patient taking differently:OralDaily(AM), Informant: Patient, Reported on 05/17/2023 VITAMIN C 500 MG PO TABS 1 TABLET DAILY 0 08/15/20 06 Active CALCIUM CITRATE + D 315-200 MG-UNIT PO TABS one tab daily Active COLACE 100 MG PO CAPSIndications: Intestinal obstruction (HCC) one cap daily 12/24/19 11 Active latanoprost (XALATAN) 0.005 % ophthalmic solution Instill 1 Drop into both eyes at bedtime. 11 05/28/20 19 Active amoxicillin (AMOXIL) 500 MG Capsule Take 1 Capsule by mouth daily as needed. Patient takes prior to dental appointments. 02/25/20 20 Active Albuterol Sulfate HFA 108 (90 Base) MCG/ACT Inhalation Aerosol SolutionIndicati ons:Acute bronchospasm Inhale 2 Puffs by mouth 4 times a day. 54 g 3 07/29/20 21 Active Metoprolol Succinate ER 25 MG Oral Tablet Extended Release 24 Hour (toPROL XL)Indications:C ardiomegaly TAKE 1 TABLET BY MOUTH EVERY DAY 90 Tablet 3 08/08/20 23 Active Cranberry 500 MG Oral Tablet Take 500 mg by mouth in the morning. Active Spironolactone 25 MG Oral Tablet (Aldactone)Indic ations:HTN, goal below 140/90 TAKE 1/2 TABLET BY MOUTH EVERY DAY 45 Tablet 3 12/15/19 24 Active Furosemide 40 MG Oral Tablet (Lasix)Indicatio ns:Bilateral leg edema TAKE 2 TABLETS BY MOUTH IN THE MORNING 180 Tablet 3 12/29/19 24 Active Pantoprazole Sodium 40 MG Oral Tablet Delayed Release (Protonix)Indica tions:Esophageal reflux TAKE 1 TABLET BY MOUTH EVERY DAY IN THE MORNING 90 Tablet 3 01/08/20 24 Active Atorvastatin Calcium 10 MG Oral Tablet (Lipitor)Indicat ions:Dyslipidemi a, goal LDL below 70 TAKE 1 TABLET BY MOUTH EVERY DAY 90 Tablet 3 03/11/20 24 Active Fluticasone Propionate 50 MCG/ACT Nasal Suspension (Flonase)Indicat ions:Cough SPRAY 2 SPRAYS INTO EACH NOSTRIL EVERY DAY 48 mL 2 03/24/20 24 Active Centrum Silver 50+Men Oral Tablet Take by mouth. Active OneTouch Verio w/Device KitIndications:T ype 2 diabetes mellitus with hemoglobin A1c goal of less than 8.0% ([facility]) Use up to check sugar first thing in am and 2 hours after meals 1 Kit 04/04/20 24 Active Insulin Glargine Solostar 100 UNIT/ML Subcutaneous Solution Pen-injector (Lantus SoloStar)Indicat ions:Type 2 diabetes mellitus with hemoglobin A1c goal of less than 8.0% ([facility]) Inject 10 Units under the skin daily. Titrating dose - max dose 30 units daily. DX: E11.9 5 Each 3 04/04/20 24 Active Additional Information Patient taking differently: 9 UnitsSubcutaneous Daily(Non-Specified), Titrating dose - max dose 30 units daily. DX: E11.9, Reported on 05/31/2024 Insulin Pen Needle 32G X 6 MMIndications:Ty pe 2 diabetes mellitus with hemoglobin A1c goal of less than 8.0% (HCC) Use to inject insulin once daily. 100 Each 3 04/04/20 24 Active Colestipol HCl 1 GM Oral Tablet (Colestid) Take 1 Tablet by mouth in the morning. 30 Tablet 3 05/08/20 24 Active OneTouch Verio In Vitro Strip (Glucose Blood)Indication s:Type 2 diabetes mellitus with hemoglobin A1c goal of less than 8.0% (HCC) USE UP TO CHECK SUGARS FIRST THING IN AM AND 2 HOURS AFTER MEALS 100 Strip 1 05/22/20 24 Active Slow Magnesium/Calciu m 64-106 MG Oral Tablet Delayed Release (magnesium chloride)Indicat ions:Hypomagnese moy Take 2 Tablets by mouth in the morning and 2 Tablets before bedtime. 05/22/20 24 Active OneTouch Delica Plus [id number] ions:Type 2 diabetes mellitus with hemoglobin A1c goal of less than 8.0% (HCC) USE UP TO CHECK SUGAR FIRST THING IN AM AND 2 HOURS AFTER MEALS 100 Each 1 05/25/20 24 Active Eliquis 5 MG Oral Tablet (Apixaban)Indica tions:Persistent atrial fibrillation (HCC) TAKE 1 TABLET BY MOUTH TWICE A DAY 180 Tablet 1 05/28/20 24 Active metFORMIN HCl ER 500 MG Oral Tablet Extended Release 24 Hour (Glucophage XR)Indications:T ype 2 diabetes mellitus with hemoglobin A1c goal of less than 8.0% (HCC) Take 2 Tablets by mouth 2 times a day with morning and evening meals. Begin with one tablet twice daily for one week then increase to two tablets twice daily. (Metformin on hold as of 06-05-24) 06/05/20 24 Active metFORMIN HCl ER 500 MG Oral Tablet Extended Release 24 Hour (Glucophage XR)Indications:T ype 2 diabetes mellitus with hemoglobin A1c goal of less than 8.0% (HCC) Take 2 Tablets by mouth 2 times a day with morning and evening meals. Begin with one tablet twice daily for one week then increase to two tablets twice daily 360 Tablet 3 04/04/20 24 024 Discontinued Hospital, Clinic, or Other Facility Administered Medication Ordered Dose Route Frequency Start Date End Date Status Testosterone Cypionate (Depotestosterone Cypionate) 200 MG/ML inj 100 mgIndications:Hypogonadism, male 100 mg IM QMONTH 01/11/2021 Active documented as of this encounter (statuses as of 06/12/2024) Active Problems Problem Noted Date Diagnosed Date [...] as of this encounter (statuses as of 06/12/2024) Resolved Problems Problem Noted Date Diagnosed Date [...] as of this encounter (statuses as of 06/12/2024) Immunizations Name Administration Dates Next Due COVID-19 mRNA, LNP-s, No Pre serve, 2-Dose Series (Nubli) 06/29/2021,12/15/2020,11/24/2020 COVID-19, LNP-s, No Preserve , Deric-sucrose, Ages 12+ (Pfizer) 02/04/2022 COVID-19, MRNA-LNP, 23-24, P F, 30 MCG/0.3 mL, 12 YRS AND ABOVE, IM ([employer]) 10/10/2023 Covid-19, Mrna, Lnp-s, Pf, B ivalent, 30 Mcg, IM, 12 yrs and above (Nubli) 03/02/2023 Hepatitis B, 20+ yrs 04/01/2024,2023,01/05 /2024 Pneumococcal Conjugate Vacc, 13 Valent (Prevnar) 02/08/2016 Pneumococcal Polysaccharide PPV23 (Pneumovax) 02/08/2012 RSV Vac., Bivalent, Perfusio n F, Pf,0.5 Ml (Abrysvo) 10/06/2023 Season Influenza, Quad, PF, Adjuvanted, 65+ Yrs, IM (FLUAD) 06/10/2020 Seasonal Influenza, PF, 6 M & above, IM , (FluLaval or Fluzone) 06/28/2018,06/29/2017 Seasonal Influenza, Quadriva lent Hd (Fluzone Hd) 06/26/2023,06/09/2022,06/17/2021 Seasonal Influenza, Quadriva lent, No Preserve, IM 06/20/2016 Seasonal Influenza, Trivalen t, (IIV3), with Preserv, (Fluzone) 06/11/2015,06/27/2014,06/03/2013,06/13,05/27/2011,06/14/2010,07/29/2008 ,08/01/2007,08/02/2006 Seasonal Influenza, Trivalen t, Adjuvanted, 65+ YRS, [...] encounter Miscellaneous Notes * Telephone Encounter - Vera Renee LPN - 06/05/2024 4:29 PM EDT Patient has been informed of below message and verbalized understanding. Med list updated, standing lab order placed. * Telephone Encounter - Vera Renee LPN - 06/05/2024 4:23 PM EDT ----- Message from Isa Long MD sent at 06/04/2024 2:19 PM EDT ----- Please call patient and tell him to stop metformin as per PCP and myself. Please order magnesium level weekly times 10. Let patient know to go for blood work as this weekly. Dr. Long ----- Message ----- From: Lokesh Amin MD Sent: 06/04/2024 12:42 PM EDT To: Isa Long MD Thank you ,it is ok with me, do you need us to call him? Thanks! Are mag levels in? Thanks agaiN! Alberto ----- Message ----- From: Isa Long MD Sent: 05/31/2024 3:05 PM EDT To: Lokesh Amin MD Saw patient with low Mag today. Main reason is lasix and diarrhoea. Looks like he needs the lasix. If ok with you I suggest taking him off metformin for a month to see if it makes a difference in terms of diarrhoea. Weekly Mag level for now till stables. Thanks Dr. Long * Telephone Encounter - Vera Renee LPN - 06/05/2024 10:14 AM EDT MyG sent * Telephone Encounter - Vera Renee LPN - 06/05/2024 9:58 AM EDT ----- Message from Isa Long MD sent at 06/04/2024 3:47 PM EDT ----- PTH, vitamin-D and phosphorus levels are normal which is good. No changes documented in this encounter Plan of Treatment Upcoming Encounters Date Type Department Care Team (Late st Contact Info) Description 07/08/2024 2:30 PM EDT Office Visit Pharmacy, [facility] [address] [facility] [place] [address] Pharmacist2, [facility] [address] [place] [address] 07/08/2024 3:00 PM EDT Nurse Only Ancillary [facility] [address] [place] [address] Nurse, Int Med [address] [facility] [place] [address] 08/28/2024 1:30 PM EST Office Visit Gastroenterology, [facility] [address] [place] [address] Rain Medellin CRNP [address] [facility] [place] [address] 09/09/2024 3:00 PM EST Office Visit Nephrology, [facility] [address] [facility] [place] [address] Isa Long MD [address] [place] [address] [place] [address] 11/14/2024 2:00 PM EST Office Visit General Internal Medicine [facility] [address] [facility] [place] [address] Lokesh Amin MD [address] [facility] [place] [address] 11/14/2024 3:45 PM EST Office Visit [facility] [address] [facility] [address] Becky Gordon MD [address] [place] [address] [place] [address] 03/18/2025 10:45 AM EDT Office Visit Dermatology [facility] [address] [place] [address] Lokesh Mayen MD [address] [place] [address] Scheduled Orders Name Type Priority Associated Diagnoses Orde r Schedule MAGNESIUM Lab Routine Type 2 diabetes mellitus with hemoglobin A1c goal of less than 8.0% (HCC) Hypomagnesemia Every Week for 12 Occurrences starting 06/05/2024 until 06/05/2025, 1 completed Scheduled Procedures Name Priority Associated Diagnoses Date/Ti me COLONOSCOPY FLEXIBLE PROXIMAL DIAGNOSTIC Recall Colon cancer screening Health Maintenance Due Date Last Done Comments Adult Wellness Visit 07/07/2017 07/07/2016 COVID-19 Vaccine ( season) 2024 10/10/2023, 03/02/2023, 02/04/2022, Additional history exists Diabetic Eye Exam 08/01/2024 08/01/2023, , 07/25/2005 Albumin/Creatinine Ratio 09/26/2024 09/26/2023, 07/27 HbA1c 10/16/2024 04/15/2024, 07/0 11/2023, 09/26/2023, Additional history exists GFR 11/26/2024 05/29/2024, 04/26, 05/21/2024, Additional history exists Depression Screening 03/27/2025 03/27/2024 Diabetic Foot Exam 03/27/2025 03/27/2024, 02/21/2023 CKD HGB USE SMARTSET 67061 04/26/202504/26, 04/26/2024, 04/15/2024, Additional history exists CKD PHOS USE SMARTSET 74107 05/29/2025 09/0 12/2023, 03/27/2024, 09/26/2023, Additional history [...] this encounter Medical Devices Implanted Type Area Fingernail Technician Device Identifier Shelf Expiration Date Model / Serial / Lot Strattice [id number] (400 Units) - [id number] Implanted:Qty : 400 on 10/25/2011 [place] [facility] [place] Abdomen LIFE CELL MISTY 12/23/2012 [id number] / / [id number] Mesh Prolit Hernia [id number] - [id number] Implanted:Qty : 1 on 08/14/2012 at [place] [facility] [place] Left: Abdomen [employer] 12/24/2015 [id number] / / [id number] Suture Steel 6 B&S19 M654g - [id number] Implanted:Qty : 3 on 07/10/2020 by Ag Ballesteros MD at [place] [facility] [place] N/A: Sternum JNJ : [employer] 02/22/2025 M654G / / [id number] Valve Heart Aortic Epic 23mm - [id number] - [id number] Implanted:Qty : 1 on 07/10/2020 by Ag Ballesteros MD at [place] [facility] [place] N/A: Aorta ST DOMINIK : CARDIOVASCULAR [id number] 03/22/2024 [id number] / [id number] / [id number] documented as of this encounter Results * MAGNESIUM (06/06/2024 2:15 PM EDT) [facility] Magnesium 2.1 1.5 - 2.6 mg/dL 06/06/2024 3:16 PM EDT [facility] [place] 56-02 Blood Venous blood specimen / Unknown Venipuncture / Unknown 06/06/2024 2:15 PM EDT 06/06/2024 2:15 PM EDT Isa Long MD LAB BLOOD ORDERABLES [facility] [place] [facility] [address] [facility] [address] documented in this encounter Visit Diagnoses Diagnosis Hypomagnesemia- Primary Disorders of magnesium metabolism Type 2 diabetes mellitus with hemoglobin A1c goal of less than 8.0% (HCC) documented in this encounter Advance Directives * [...] and were consensually agreed upon. Care Teams Exhibits Coordinator Relationship Specialty Start Date End Date Lokesh Amin MD 200 [facility] [place] [address] PCP - General Internal Medicine 07/22/21 documented as of this encounter
--- OUTSIDE RECORDS SUMMARY | 2024-07-19 11:32 | External Medical Summary | Summary of Care ---
Author Name Unknown Organization [facility] Address [address] [place] [address] Phone [phone] Care Team Providers Care Home Mission Worker Name Role Phone Lokesh Amin MD Primary Care Provider + Reason for Visit * Reason Onset Date Comments Test Results 06/13/2024 Encounter Details Date Type Department Care Team (Late st Contact Info) Description 06/13/2024 Telephone Nephrology, [address] [address] Isa Long MD [address] [place] [address] Test Results Allergies Active Allergy Reactions Criticality Noted Date Comments Demerol Neuro complications (Please comment) High 06/14/2010 confusion Adhesive Tape Rash Low 06/14/2010 documented as of this encounter (statuses as of 06/13/2024) Medications Medication Sig Dispensed Refills Start Date [...] before bedtime. 05/22/2024 Active OneTouch Delica Plus [id number] ons:Type 2 diabetes mellitus with hemoglobin A1c [...] as of this encounter (statuses as of 06/13/2024) Active Problems Problem Noted Date Diagnosed Date [...] as of this encounter (statuses as of 06/13/2024) Resolved Problems Problem Noted Date Diagnosed Date [...] as of this encounter (statuses as of 06/13/2024) Immunizations Name Administration Dates Next Due COVID-19 mRNA, LNP-s, No Pre serve, 2-Dose Series ([employer]) 06/29/2021,12/15/2020,11/24/2020 COVID-19, LNP-s, No Preserve , Deric-sucrose, Ages 12+ (Pfizer) 02/04/2022 COVID-19, MRNA-LNP, 23-24, P F, 30 MCG/0.3 mL, 12 YRS AND ABOVE, IM ([facility]) 10/10/2023 Covid-19, Mrna, Lnp-s, Pf, B ivalent, 30 Mcg, IM, 12 yrs and above (Pfizer) 03/02/2023 Hepatitis B, 20+ yrs 04/01/2024,2023,09/29 Pneumococcal Conjugate Vacc, 13 Valent (Prevnar) 02/08/2016 Pneumococcal Polysaccharide PPV23 (Pneumovax) 02/08/2012 RSV Vac., Bivalent, Perfusio n F, Pf,0.5 Ml (Abrysvo) 10/06/2023 Season Influenza, Quad, PF, Adjuvanted, 65+ Yrs, IM (FLUAD) 06/10/2020 Seasonal Influenza, High Dos e, Trivalent, PF, [...] encounter Miscellaneous Notes * Telephone Encounter - Sarai Pan LPN - 06/13/2024 2:09 PM EDT Pt aware * Telephone Encounter - Sarai Pan LPN - 06/13/2024 2:09 PM EDT ----- Message from Isa Long MD sent at 06/13/2024 12:42 PM EDT ----- Magnesium level is normal which is good. No changes documented in this encounter Plan of Treatment Upcoming Encounters Date Type Department Care Team (Late st Contact Info) Description 07/08/2024 2:30 PM EDT Office Visit Pharmacy, [facility] [place] [address] [facility] [place] [address] Pharmacist2, [facility] [address] [place] [address] 07/08/2024 3:00 PM EDT Nurse Only Ancillary [facility] [place] 200 [facility] [place] [address] Nurse, Int Med [address] [facility] [place] [address] 08/28/2024 1:30 PM EST Office Visit [facility]ology, [facility] [address] [facility] [address] Rain Medellin CRNP [facility] [address] 09/09/2024 3:00 PM EST Office Visit Nephrology, [facility] 200 [facility] [place], [place] [address] Isa Long MD [address] [place] [address] [place] [address] 11/14/2024 2:00 PM EST Office Visit General Internal Medicine [facility] [place] 200 [facility] [place] [address] Lokesh Amin MD 200 [facility] [place] [address] 11/14/2024 3:45 PM EST Office Visit MOHS Surgery [facility] 200 [facility], [place] [address] Becky Gordon MD 200 [facility] [place] [address] 03/18/2025 10:45 AM EDT Office Visit Dermatology [facility] [address] [place] [address] Lokesh Mayen MD [address] [place] [address] Scheduled Procedures Name Priority Associated Diagnoses Date/Ti [...] 03/27/2025 03/27/2024, 02/21/2023 CKD HGB USE SMARTSET 03995 04/26/202504/26, 04/26/2024, 04/15/2024, Additional history exists CKD PHOS USE SMARTSET 42292 05/29/2025 090 12/2023, 03/27/2024, 09/26/2023, Additional history [...] this encounter Medical Devices Implanted Type Area Auto Repair Shop Manager Device Identifier Shelf Expiration Date Model / Serial / Lot Omegattmagnolia [id number] (400 Units) - [id number] Implanted:Qty : 400 on 10/25/2011 at [place] [facility] [place] Abdomen LIFE CELL MISTY 12/23/[id number] / / [id number] Mesh Prolit Hernia [id number] - [id number] Implanted:Qty : 1 on 08/14/2012 at [place] [facility] [place] Left: Abdomen [employer] MISTY 12/24/2015 [id number] / / [id number] Suture Steel 6 B&S19 M654g - [id number] Implanted:Qty : 3 on 07/10/2020 by Ag Ballesteros MD at [place] [facility] [place] N/A: Sternum JNJ : [employer] 02/22/2025 M654G / / [id number] Valve Heart Aortic Epic 23mm - [id number] - [id number] Implanted:Qty : 1 on 07/10/2020 by gA Ballesteros MD at [place] [facility] [place] N/A: Aorta ST DOMINIK : CARDIOVASCULAR [id number] 03/22/2024 [id number]- 00 / [id number] / [id number] documented as of this encounter Advance Directives [...] and were consensually agreed upon. Care Teams Home Mission Worker Relationship Specialty Start Date End Date Lokesh Amin MD [address] [place] [address] PCP - General Internal Medicine 07/22/21 documented as of this encounter
--- OUTSIDE RECORDS SUMMARY | 2024-07-19 11:32 | External Medical Summary | Summary of Care ---
Author Name Unknown Organization [facility] Address [address] [place] [address] Phone [phone] Care Team Providers Care Tobacco Hanger Name Role Phone Lokesh Amin MD Primary Care Provider + Reason for Visit * Reason Comments Outpatient Testing Encounter Details Date Type Department Care Team (Late st Contact Info) Description 06/20/2024 3:10 PM EDT Laboratory Laboratory, [facility] [address] [place] [address] [facility] [address] [place] [address] Type 2 diabetes mellitus with hemoglobin A1c goal of less than 8.0% ([facility]); Hypomagnesemia Allergies Active Allergy Reactions Criticality Noted Date Comments Demerol Neuro complications (Please comment) High 06/14/2010 confusion Adhesive Tape Rash Low 06/14/2010 documented as of this encounter (statuses as of 06/20/2024) Medications Medication Sig Dispensed Refills Start Date [...] hemoglobin A1c goal of less than 8.0% ([facility]) Use up to check sugar [...] before bedtime. 05/22/2024 Active OneTouch Delica Plus [id number] ons:Type 2 diabetes mellitus with hemoglobin A1c [...] as of this encounter (statuses as of 06/20/2024) Active Problems Problem Noted Date Diagnosed Date [...] as of this encounter (statuses as of 06/20/2024) Resolved Problems Problem Noted Date Diagnosed Date [...] as of this encounter (statuses as of 06/20/2024) Immunizations Name Administration Dates Next Due COVID-19 mRNA, LNP-s, No Pre serve, 2-Dose Series ([employer]) 06/29/2021,12/15/2020,11/24/2020 COVID-19, LNP-s, No Preserve , Deric-sucrose, Ages 12+ (Pfizer) 02/04/2022 COVID-19, MRNA-LNP, 23-24, P F, 30 MCG/0.3 mL, 12 YRS AND ABOVE, IM ([facility]) 10/10/2023 Covid-19, Mrna, Lnp-s, Pf, B [...] State Nimesh Whitfield [address] [place] [address] Pharmacist2, [facility] [address] [place] [address] 07/08/2024 3:00 PM EDT Nurse Only Ancillary [facility] [address] [place] [address] Nurse, Int Med [address] [place] [address] 08/28/2024 1:30 PM EST Office Visit Gastroenterology, [facility] [address] [place] [address] Rain Medellin CRNP [address] [place] [address] 09/09/2024 3:00 PM EST Office Visit Nephrology, [facility] 200 [place] [address] Isa Long MD [address] [place] [address] [place] [address] 11/14/2024 2:00 PM EST Office Visit General Internal Medicine [facility] 200 [place] [address] Lokesh Amin MD 200 [facility] [place] [address] 11/14/2024 3:45 PM EST Office Visit MOHS Surgery [facility] 200 [place] [address] Becky Gordon MD [address] [place] [address] [place] [address] 03/18/2025 10:45 AM EDT Office Visit Dermatology [facility] 200 [place] [address] Lokesh Mayen MD [address] [place] [address] [place] [address] Pending Results Name Type Priority Associated Diagnoses Date /Time MAGNESIUM Lab Routine Type 2 diabetes mellitus with hemoglobin A1c goal of less than 8.0% (HCC) Hypomagnesemia 06/20/2024 3:04 PM EDT Scheduled Procedures Name Priority Associated [...] 03/27/2025 03/27/2024, 02/21/2023 CKD HGB USE SMARTSET 25083 04/26/202504/26, 04/26/2024, 04/15/2024, Additional history exists CKD PHOS USE SMARTSET 68759 05/29/2025 09/0 12/2023, 03/27/2024, 09/26/2023, Additional history [...] this encounter Medical Devices Implanted Type Area Trimmer Operator Three Knife Device Identifier Shelf Expiration Date Model / Serial / Lot Korey [id number] (400 Units) - [id number] Implanted:Qty : 400 on 10/25/2011 at OR [facility] LIFE DP7 Digital MISTY 12/23/2012 / / [id number] Mesh Prolit Hernia [id number] - [id number] Implanted:Qty : 1 on 08/14/2012 at OR [facility] [place] Left: Abdomen [employer] MISTY 12/24/2015 [id number] / / [id number] Suture Steel 6 B&S19 M654g - [id number] Implanted:Qty : 3 on 07/10/2020 by Ag Ballesteros MD at OR [facility] [place] N/A: Sternum JNJ : [employer] 02/22/2025 M654G / / [id number] Valve Heart Aortic Epic 23mm - [id number] - [id number] Implanted:Qty : 1 on 07/10/2020 by Ag Ballesteros MD at OR [facility] [place] N/A: Aorta ST DOMINIK : CARDIOVASCULAR [id number] 03/22/2024 [id number] 00 / [id number] / [id number] documented as of this encounter Visit Diagnoses Diagnosis Type 2 diabetes mellitus with hemoglobin A1c goal of less than 8.0% (HCC) Hypomagnesemia Disorders of magnesium metabolism documented in [...] and were consensually agreed upon. Care Teams Tobacco Hanger Relationship Specialty Start Date End Date Lokesh Amin MD [address] [place] [address], [place] [address] PCP - General Internal Medicine 07/22/21 documented as of this encounter
--- OUTSIDE RECORDS SUMMARY | 2024-07-19 11:32 | External Medical Summary | Summary of Care ---
Author Name Unknown Organization [facility] Address [address] [place] [address] Phone [phone] Care Team Providers Care Senior Financial Reporting Accountant Name Role Phone Lokesh Amin MD Primary Care Provider + Reason for Visit * Reason Comments Outpatient Testing Encounter Details Date Type Department Care Team (Late st Contact Info) Description 06/28/2024 3:20 PM EDT Laboratory Laboratory, [facility] [address] [place] [address] [facility] [address] [place] [address] [employer] Other*[id number]; Type 2 diabetes mellitus with hemoglobin A1c goal of less than 8.0% ([facility]); Hypomagnesemia Allergies Active Allergy Reactions Criticality Noted Date Comments Demerol Neuro complications (Please comment) High 06/14/2010 confusion Adhesive Tape Rash Low 06/14/2010 documented as of this encounter (statuses as of 06/28/2024) Medications Medication Sig Dispensed Refills Start Date [...] hemoglobin A1c goal of less than 8.0% ([facility]) Use up to check sugar first [...] before bedtime. 05/22/2024 Active OneTouch Delica Plus [id number] ons:Type 2 diabetes mellitus with hemoglobin A1c [...] as of this encounter (statuses as of 06/28/2024) Active Problems Problem Noted Date Diagnosed Date [...] as of this encounter (statuses as of 06/28/2024) Resolved Problems Problem Noted Date Diagnosed Date [...] as of this encounter (statuses as of 06/28/2024) Immunizations Name Administration Dates Next Due COVID-19 mRNA, LNP-s, No Pre serve, 2-Dose Series ([place]) 06/29/2021,12/15/2020,11/24/2020 COVID-19, LNP-s, No Preserve , Deric-sucrose, Ages 12+ (Pfizer) 02/04/2022 COVID-19, MRNA-LNP, 23-24, P F, 30 MCG/0.3 mL, 12 YRS AND ABOVE, IM ([employer]Com[employer]) 10/10/2023 Covid-19, Mrna, Lnp-s, Pf, B ivalent, [...] State Nimes[facility] Whitfield [address] [place] [address] Pharmacist2, [facility] [address] [place] [address] 07/08/2024 3:00 PM EDT Nurse Only Ancillary [facility] [address] [place] [address] Nurse, Int Med [address] [place] [address] 08/28/2024 1:30 PM EST Office Visit Gastroenterology, [facility] [address] [place] [address] Rain Medellin CRNP [address] [place] [address] 09/09/2024 3:00 PM EST Office Visit Nephrology, [facility] 200 [place] [address] Isa Long MD [address] [facility] [place] [address] 11/14/2024 2:00 PM EST Office Visit General Internal Medicine [facility] [address] [place] [address] Lokesh Amin MD 200 [place] [address] 11/14/2024 3:45 PM EST Office Visit MOHS Surgery [facility] 200 [place] [address] Becky Gordon MD [address] [place] [address], [place] [address] 03/18/2025 10:45 AM EDT Office Visit Dermatology [facility] [address] [place] [address] Lokesh Mayen MD [address] [place] [address], [place] [address] Pending Results Name Type Priority Associated Diagnoses Date /Time MYCODE SUBSEQUENT ADULT Lab Routine MyCode Research Other*[id number] 06/28/2024 3:08 PM EDT MAGNESIUM Lab Routine Type 2 diabetes mellitus with hemoglobin A1c goal of less than 8.0% (HCC) Hypomagnesemia 06/28/2024 3:08 PM EDT MYCODE SST1 Lab Routine [employer] Other*[id number] 06/28/2024 3:08 PM EDT MYCODE SST2 Lab Routine [employer] Other*[id number] 06/28/2024 3:08 PM EDT Scheduled Procedures Name Priority Associated [...] 03/27/2025 03/27/2024, 02/21/2023 CKD HGB USE SMARTSET 91293 04/26/202504/26, 04/26/2024, 04/15/2024, Additional history exists CKD PHOS USE SMARTSET 75036 05/29/2025 09/0 12/2023, 03/27/2024, 09/26/2023, Additional history [...] this encounter Medical Devices Implanted Type Area Machine Greaser Device Identifier Shelf Expiration Date Model / Serial / Lot Korey [id number] (400 Units) - [id number] Implanted:Qty : 400 on 10/25/2011 [place] [facility] [place] Abdomen LIFE CELL MISTY 12/23/2012 [id number] / / [id number] Mesh Prolit Hernia [id number] - [id number] Implanted:Qty : 1 on 08/14/2012 at [place] [facility] [place] Left: Abdomen [employer] MISTY 12/24/2015 [id number] / / [id number] Suture Steel 6 B&S19 M654g - [id number] Implanted:Qty : 3 on 07/10/2020 by Ag Ballesteros MD at [place] [facility] [place] N/A: Sternum JNJ : [employer] 02/22/2025 M654G / / [id number] Valve Heart Aortic Epic 23mm - [id number] - [id number] Implanted:Qty : 1 on 07/10/2020 by Ag Ballesteros MD at [place] [facility] [place] N/A: Aorta ST DOMINIK : CARDIOVASCULAR [id number] 03/22/2024 [id number]- 00 / [id number] / [id number] documented as of this encounter Visit Diagnoses Diagnosis MyCode Research Other*[id number] Type 2 diabetes mellitus with hemoglobin A1c goal of less than 8.0% ([facility]) Hypomagnesemia Disorders of magnesium metabolism documented in [...] and were consensually agreed upon. Care Teams Senior Financial Reporting Accountant Relationship Specialty Start Date End Date Lokesh Amin MD 200 [place] [address] PCP - General Internal Medicine 07/22/21 documented as of this encounter
--- OUTSIDE RECORDS SUMMARY | 2024-07-19 11:32 | External Medical Summary | Summary of Care ---
Author Name Unknown Organization [facility] Address [address] [place] [address] Phone [phone] Care Team Providers Care Real Estate Coordinator Name Role Phone Lokesh Amin MD Primary Care Provider + Reason for Visit * Reason Comments Outpatient Testing Encounter Details Date Type Department Care Team (Late st Contact Info) Description 06/06/2024 2:20 PM EDT Laboratory Laboratory [facility] [address] [place] [id number] [place], [facility] [address] [place] [address] Type 2 diabetes mellitus with hemoglobin A1c goal of less than 8.0% ([facility]); Hypomagnesemia Allergies Active Allergy Reactions Criticality Noted Date Comments Demerol Neuro complications (Please comment) High 06/14/2010 confusion Adhesive Tape Rash Low 06/14/2010 documented as of this encounter (statuses as of 06/06/2024) Medications Medication Sig Dispensed Refills Start Date [...] hemoglobin A1c goal of less than 8.0% ([facility]) Use up to check sugar first thing in am and 2 hours after meals 1 Kit 04/04/2024 Active Insulin Glargine Solostar 100 UNIT/ML Subcutaneous Solution Pen-injector (Lantus SoloStar)Indicati ons:Type 2 diabetes mellitus with hemoglobin A1c goal of less than 8.0% ([facility]) Inject 10 Units under the skin daily. [...] before bedtime. 05/22/2024 Active OneTouch Delica Plus [id number] ons:Type 2 diabetes mellitus with hemoglobin A1c [...] as of this encounter (statuses as of 06/06/2024) Active Problems Problem Noted Date Diagnosed Date [...] as of this encounter (statuses as of 06/06/2024) Resolved Problems Problem Noted Date Diagnosed Date [...] as of this encounter (statuses as of 06/06/2024) Immunizations Name Administration Dates Next Due COVID-19 mRNA, LNP-s, No Pre serve, 2-Dose Series (Covagen) 06/29/2021,12/15/2020,11/24/2020 COVID-19, LNP-s, No Preserve , Deric-sucrose, Ages 12+ (Pfizer) 02/04/2022 COVID-19, MRNA-LNP, 23-24, P F, 30 MCG/0.3 mL, 12 YRS AND ABOVE, IM [facility] 10/10/2023 Covid-19, Mrna, Lnp-s, Pf, B ivalent, [...] State Nimesh Whitfield [address] [place] [address] Pharmacist2, [facility] [address] [place] [address] 07/08/2024 3:00 PM EDT Nurse Only Ancillary [facility] [address] [place] [address] Nurse, Int Med [address] [place] [address] 08/28/2024 1:30 PM EST Office Visit Gastroenterology, [facility] [address] [place] [address] Rain Medellin CRNP [address] [place] [address] 09/09/2024 3:00 PM EST Office Visit Nephrology, [facility] 200 [facility] [place] [address] Isa Long MD [address] [place] [address] [place] [address] 11/14/2024 2:00 PM EST Office Visit General Internal Medicine [facility] 200 [facility] [place] [address] Lokesh Amin MD 200 [place] [address] 11/14/2024 3:45 PM EST Office Visit MOHS Surgery [facility] 200 [place] [address] Becky Gordon MD [address] [place] [address] [place] [address] 03/18/2025 10:45 AM EDT Office Visit Dermatology [facility] 200 [place] [address] Lokesh Mayen MD [address] [place] [address] [place] [address] Pending Results Name Type Priority Associated Diagnoses Date /Time MAGNESIUM Lab Routine Type 2 diabetes mellitus with hemoglobin A1c goal of less than 8.0% (HCC) Hypomagnesemia 06/06/2024 2:15 PM EDT Scheduled Procedures Name Priority Associated [...] 03/27/2025 03/27/2024, 02/21/2023 CKD HGB USE SMARTSET 84163 04/26/202504/26, 04/26/2024, 04/15/2024, Additional history exists CKD PHOS USE SMARTSET 49257 05/29/2025 09/0 12/2023, 03/27/2024, 09/26/2023, Additional history [...] this encounter Medical Devices Implanted Type Area Editorial Project Manager Device Identifier Shelf Expiration Date Model / Serial / Lot Strattice [id number] (400 Units) - [id number] Implanted:Qty : 400 on 10/25/2011 at [place] [facility] [place] Abdomen LIFE CELL MISTY 12/23/2012 [id number] / / [id number] Mesh Prolit Hernia [id number] - [id number] Implanted:Qty : 1 on 08/14/2012 at [place] [facility] [place] Left: Abdomen A[employer] MISTY 12/24/2015 [id number] / / [id number] Suture Steel 6 B&S19 M654g - [id number] Implanted:Qty : 3 on 07/10/2020 by Ag Ballesteros MD at [place] [facility] [place] N/A: Sternum JNJ : [employer] 02/22/2025 M654G / / [id number] Valve Heart Aortic Epic 23mm - [id number] - [id number] Implanted:Qty : 1 on 07/10/2020 by Ag Ballesteros MD at [place] [facility] [place] N/A: Aorta ST DOMINIK : CARDIOVASCULAR [id number] 03/22/2024 [id number]- 00 / [id number] / [id number] documented as of this encounter Visit Diagnoses Diagnosis Type 2 diabetes mellitus with hemoglobin A1c goal of less than 8.0% ([facility]) Hypomagnesemia Disorders of magnesium metabolism documented in [...] and were consensually agreed upon. Care Teams Real Estate Coordinator Relationship Specialty Start Date End Date Lokesh Amin MD 200 [place] [address] PCP - General Internal Medicine 07/22/21 documented as of this encounter
--- OUTSIDE RECORDS SUMMARY | 2024-07-19 11:32 | External Medical Summary ---
Author Name Unknown Address Unknown Organization K01:[facility] [address] [place] [address] Laboratory Report Ordering Provider Test Date Status ANUJ POST 06/28/2024 15:08:16 Final Observation Date Value Abnormality Reference (Units ) Status Magnesium 06/28/2024 15:08:16 2.0 1.5-2.6 (m g/dL) Final Performing Location [facility] [address] [place] [address]
--- OUTSIDE RECORDS SUMMARY | 2024-07-19 11:32 | External Medical Summary | Summary of Care ---
Author Name Unknown Organization [facility] Address [address] [place] [address] Phone [phone] Care Team Providers Care Build And Deployment Engineer Name Role Phone Lokesh Amin MD Primary Care Provider + Reason for Visit * Reason Comments Outpatient Testing Encounter Details Date Type Department Care Team (Late st Contact Info) Description 06/13/2024 2:30 PM EDT Laboratory Laboratory, [facility] [address] [place] [address] [facility] [address] [place] [address] Type 2 diabetes mellitus with [...] before bedtime. 05/22/2024 Active OneTouch Delica Plus [id number] ons:Type 2 diabetes mellitus with hemoglobin A1c [...] mRNA, LNP-s, No Pre serve, 2-Dose Series ([employer]) 06/29/2021,12/15/2020,11/24/2020 COVID-19, LNP-s, No Preserve , Deric-sucrose, Ages 12+ (Pfizer) 02/04/2022 COVID-19, MRNA-LNP, 23-24, P F, 30 MCG/0.3 mL, 12 YRS AND ABOVE, IM ([employer]) 10/10/2023 Covid-19, Mrna, Lnp-s, Pf, [...] State Nimesh Whitfield [address] [place] [address] Pharmacist2, [facility] [address] [place] [address] 07/08/2024 3:00 PM EDT Nurse Only Ancillary State Nimesh Whitfield [address] [place] [address] Nurse, Int Med [address] [place] [address] 08/28/2024 1:30 PM EST Office Visit Gastroenterology, [facility] [address] [place] [address] Rain Medellin CRNP [address] [place] [place] [address] 09/09/2024 3:00 PM EST Office Visit Nephrology, [facility] 200 [facility] [place] [place] [address] Isa Long MD [address] [place] [address] [place] [address] 11/14/2024 2:00 PM EST Office Visit General Internal Medicine [facility] 200 [facility] [place] [place] [address] Lokesh Amin MD 200 [facility] [place] [address] 11/14/2024 3:45 PM EST Office Visit MOHS Surgery [facility] [address] [place] [address] Becky Gordon MD [address] [place] [address] [place] [address] 03/18/2025 10:45 AM EDT Office Visit Dermatology [facility] 200 [facility] [place] [place] [address] Lokesh Mayen MD [address] [place] [address] [place] [address] Pending Results Name Type Priority Associated Diagnoses Date /Time MAGNESIUM Lab Routine Type 2 diabetes mellitus with hemoglobin A1c goal of less than 8.0% (HCC) Hypomagnesemia 06/13/2024 2:37 PM EDT Scheduled Procedures Name Priority Associated [...] 03/27/2025 03/27/2024, 02/21/2023 CKD HGB USE SMARTSET 28038 04/26/202504/26, 04/26/2024, 04/15/2024, Additional history exists CKD PHOS USE SMARTSET 03539 05/29/2025 09/0 12/2023, 03/27/2024, 09/26/2023, Additional history [...] this encounter Medical Devices Implanted Type Area Instructional Facilitator Device Identifier Shelf Expiration Date Model / Serial / Lot Korey [id number] (400 Units) - [id number] Implanted:Qty : 400 on 10/25/2011 at OR [facility] [employer] MISTY 12/23/2012 / / [id number] Mesh Prolit Hernia [id number] - [id number] Implanted:Qty : 1 on 08/14/2012 at [place] [facility] Left: Abdomen [employer] 12/24/2015 [id number] / / [id number] Suture Steel 6 B&S19 M654g - [id number] Implanted:Qty : 3 on 07/10/2020 by Ag Ballesteros MD at [place] [facility] N/A: Sternum JNJ : [employer] 02/22/2025 M654G / / [id number] Valve Heart Aortic Epic 23mm - [id number] - [id number] Implanted:Qty : 1 on 07/10/2020 by Ag Ballesteros MD at [place] [facility] N/A: Aorta ST DOMINIK : CARDIOVASCULAR [id number] 03/22/2024 [id number] / [id number] / [id number] documented as of this encounter Visit Diagnoses [...] and were consensually agreed upon. Care Teams Build And Deployment Engineer Relationship Specialty Start Date End Date Lokesh Amin MD [address] [place] [address], [place] [address] PCP - General Internal Medicine 07/22/21 documented as of this encounter
--- OUTSIDE RECORDS SUMMARY | 2024-07-19 11:32 | External Medical Summary | Summary of Care ---
Author Name Unknown Organization [facility] Address [address] [place] [address] Phone [phone] Care Team Providers Care Offset Printer Name Role Phone Lokesh Amin MD Primary Care Provider + Reason for Visit * Reason Onset Date Comments Medication Administration 06/06/2024 Flu an d/or Pneumo Inj Encounter Details Date Type Department Care Team (Late st Contact Info) Description 06/06/2024 2:00 PM EDT Nurse Only Ancillary [facility] 200 [facility] [place] [address] Nurse, Int Med 200 [facility] [place] [address] Medication Administration (Flu and/or Pneu... Allergies Active Allergy Reactions Criticality Noted Date [...] hemoglobin A1c goal of less than 8.0% ([facility]) Use up to check sugar first [...] before bedtime. 05/22/2024 Active OneTouch Delica Plus [id number] ons:Type 2 diabetes mellitus with hemoglobin A1c [...] mRNA, LNP-s, No Pre serve, 2-Dose Series ([employer]) 06/29/2021,12/15/2020,11/24/2020 COVID-19, LNP-s, No Preserve , Deric-sucrose, Ages 12+ (Pfizer) 02/04/2022 COVID-19, MRNA-LNP, 23-24, P F, 30 MCG/0.3 mL, 12 YRS AND ABOVE, IM ([employer] 10/10/2023 Covid-19, Mrna, Lnp-s, Pf, B [...] No 07/10/2020 documented as of this encounter Patient Instructions * Patient Instructions* Corrie Estrada CMA - 06/06/2024 2:03 PM EDT ~~PATIENT INSTRUCTIONS FOR FLU SHOT~~ Possible side effects of influenza vaccine, (flu shot), are usually mild and include: 1. Soreness or redness at injection site 2. Low grade fever 3. Body aches You may use Tylenol/Acetaminophen as needed for these symptoms. LET YOUR DOCTOR KNOW IMMEDIATELY IF YOU HAVE DIFFICULTY BREATHING OR SWALLOWING, EXPERIENCE ITCHINGOF FEET OR HANDS, HAVE SWELLING OF EYES, FACE OR INSIDE OF NOSE. documented in this encounter Progress Notes * Corrie Estrada CMA - 06/06/2024 2:03 PM EDT PRE - ADMINISTRATION DOCUMENTATION Are you experiencing any cold symptoms or fever? No Have you had Guillain-Makanda Syndrome (an illness that causes paralysis) within the last 6 weeks? No Have you had the flu shot in the past? YES Have you ever had a reaction to the flu shot? No Corrie Estrada CMA, 06/06/2024 2:02 PM Immunization Administration Documentation Time Out Procedure Performed: Yes Patient Identified (Ask Name/Date of ): Yes Does the patient have a fever greater than 101 degrees today? No Patient allergic to latex? No VFC Stock: No Immunization(s) verified: Yes, Immunization Name: Flu, VIS Sheet(s) given: Yes Injection(s) verified: Yes, Injection Name: testosterone Verified Side and Site: Yes Verified Shot(s) with Parent(s)/Patient: Yes documented in this encounter Plan of Treatment Upcoming Encounters Date Type Department Care Team (Late st Contact Info) Description 07/08/2024 2:30 PM EDT Office Visit Pharmacy, [facility] [place] [address] [place] [address] Pharmacist2, [facility] [address] [place] [address] 07/08/2024 3:00 PM EDT Nurse Only Ancillary [facility] [place] [address] [place] [address] Nurse, Int Med [address] [place] [address] 08/28/2024 1:30 PM EST Office Visit Gastroenterology, [facility] [place] [address] [address] Rain Medellin CRNP [address] [address] 09/09/2024 3:00 PM EST Office Visit Nephrology, [facility] [address] [place] [address] Isa Long MD [address] [place] [address] 11/14/2024 2:00 PM EST Office Visit General Internal Medicine [facility] 200 [place] [address] Lokesh Amin MD 200 [place] [address] 11/14/2024 3:45 PM EST Office Visit MOHS Surgery [facility] 200 [place] [address] Becky Gordon MD 200 [place] [address] 03/18/2025 10:45 AM EDT Office Visit Dermatology [facility] 200 [place] [address] Lokesh Mayen MD 200 [place] [address] Scheduled Procedures Name Priority Associated Diagnoses Date/Ti [...] 03/27/2025 03/27/2024, 02/21/2023 CKD HGB USE SMARTSET 63862 04/26/202504/26, 04/26/2024, 04/15/2024, Additional history exists CKD PHOS USE SMARTSET 65023 05/29/2025 09/0 12/2023, 03/27/2024, 09/26/2023, Additional history [...] this encounter Medical Devices Implanted Type Area Director Medicare Sales Device Identifier Shelf Expiration Date Model / Serial / Lot Strattice [id number] (400 Units) - [id number] Implanted:Qty : 400 on 10/25/2011 at OR [facility] Abdomen [employer] MISTY 12/23/2012 [id number] / / [id number] Mesh Prolit Hernia [id number] - [id number] Implanted:Qty : 1 on 08/14/2012 at OR [facility] Left: Abdomen [employer] 12/24/2015 [id number] / / [id number] Suture Steel 6 B&S19 M654g - [id number] Implanted:Qty : 3 on 07/10/2020 by Ag Ballesteros MD at OR [facility] N/A: Sternum JNJ : [employer] 02/22/2025 M654G / / [id number] Valve Heart Aortic Epic 23mm - [id number] - [id number] Implanted:Qty : 1 on 07/10/2020 by Ag Ballesteros MD at OR [facility] N/A: Aorta ST DOMINIK : CARDIOVASCULAR [id number] 03/22/2024 [id number] 00 / [id number] / [id number] documented as of this encounter Visit Diagnoses Diagnosis Need for prophylactic vaccination and inoculation against influenza- Primary documented in this encounter Administered Medications Active Administered Medications - up to 3 most recent administrations Medication Order MAR Action Action Date Dose Rate Site Testosterone Cypionate (Depotestosterone Cypionate) 200 MG/ML inj 100 mg 100 mg, Intramuscular, QMONTH, First dose on Mon01/11/21 at 1545, Until Discontinued Given 06/06/2024 1:50 PM EDT 100 mg Dorsogluteal Left Given 05/06/2024 2:21 PM EDT 100 mg Do rsogluteal Left Given 04/04/2024 2:27 PM EDT 100 mg Do rsogluteal Left [...] and were consensually agreed upon. Care Teams Offset Printer Relationship Specialty Start Date End Date Lokesh Amin MD 200 [facility] [place] [facility] [address] PCP - General Internal Medicine 07/22/21 documented as of this encounter
--- OUTSIDE RECORDS SUMMARY | 2024-07-19 11:32 | External Medical Summary ---
Author Name Unknown Address Unknown Organization K01:[facility] [place] [address] [place] [address] Laboratory Report Ordering Provider Test Date Status MICHAEL TRACY 06/28/2024 15:08:16 Final Observation Date Value Abnormality Reference (Units ) Status MYCODE SPECIMEN-SST 06/28/2024 15:08:16 Freezing of extracted DNA, whole blood and/or serum. Final Performing Location [facility] [address] [place] [address]
--- OUTSIDE RECORDS SUMMARY | 2024-07-19 11:32 | External Medical Summary ---
Author Name Unknown Address Unknown Organization K01:[facility] - [address] [place] [address] Laboratory Report Ordering Provider Test Date Status ANUJ POST 06/20/2024 15:04:19 Final Observation Date Value Abnormality Reference (Units ) Status Magnesium 06/20/2024 15:04:19 1.9 1.5-2.6 (m g/dL) Final Performing Location [facility] - [address] [place] [address]
--- OUTSIDE RECORDS SUMMARY | 2024-07-19 11:33 | External Medical Summary | Summary of Care ---
Author Name Unknown Organization [facility] Address [address] [place] [address] Phone [phone] Care Team Providers Care Journeyman Plumber Name Role Phone Lokesh Amin MD Primary Care Provider + Reason for Visit * Reason Comments NEW PATIENT R foot * Evaluate & Treat - Unlimited Visits (Within 10 days (routine)) - Authorized Specialty Diagnoses / Procedures Referred By Gladys vazquez Referred To Contact Podiatry Diagnoses Foot lesion Lokesh Amin MD [address] [place] [address] Referral ID Status Reason Start Date Expiration Date Visits Requested Visits Authorized [id number] Authorized Specialty Services Required 05/22/[phone] Encounter Details Date Type Department Care Team (Late st Contact Info) Description 05/28/2024 1:40 PM EDT Office Visit Podiatry [facility] [address] [place] [address] Luly Lance DPM [address] [place] [address] Bilateral foot pain*; Stage 3a chronic kidney disease; Type 2 diabetes mellitus with hemoglobin A1c goal of less than 8.0% (HCC); Callus Allergies Active Allergy Reactions Criticality Noted Date Comments Demerol Neuro complications (Please comment) High 06/14/2010 confusion Adhesive Tape Rash Low 06/14/2010 documented as of this encounter (statuses as of 05/29/2024) Medications Medication Sig Dispensed Refills Start Date End Date Status GINKOBA 40 MG OR TABS 0 05/10/2004 Active GLUCOSAMINE CHONDROITIN OR TABSIndications:Javan n in limb tid 90 5 08/08/2005 Active Additional Information Patient taking differently:OralDaily(AM), Informant: Patient, Reported on 05/17/2023 VITAMIN C 500 MG PO TABS 1 TABLET DAILY 0 08/15/2006 Active CALCIUM CITRATE + D 315-200 MG-UNIT PO TABS one tab daily Active COLACE 100 MG PO CAPSIndications:Int estinal obstruction (HCC) one cap daily 12/23/2010 Active latanoprost (XALATAN) 0.005 % ophthalmic solution Instill 1 Drop into both eyes at bedtime. 11 05/28/2019 Active amoxicillin (AMOXIL) 500 MG Capsule Take 1 Capsule by mouth daily as needed. Patient takes prior to dental appointments. 02/25/2020 Active Albuterol Sulfate HFA 108 (90 Base) MCG/ACT Inhalation Aerosol SolutionIndications :Acute bronchospasm Inhale 2 Puffs by mouth 4 times a day. 54 g 3 07/29/2021 Active Metoprolol Succinate ER 25 MG Oral Tablet Extended Release 24 Hour (toPROL XL)Indications:Card iomegaly TAKE 1 TABLET BY MOUTH EVERY DAY 90 Tablet 3 08/08/2023 Active Cranberry 500 MG Oral Tablet Take 500 mg by mouth in the morning. Active Spironolactone 25 MG Oral Tablet (Aldactone)Indicati ons:HTN, goal below 140/90 TAKE 1/2 TABLET BY MOUTH EVERY DAY 45 Tablet 3 12/15/2023 Active Furosemide 40 MG Oral Tablet (Lasix)Indications: Bilateral leg edema TAKE 2 TABLETS BY MOUTH IN THE MORNING 180 Tablet 3 12/29/2023 Active Pantoprazole Sodium 40 MG Oral Tablet Delayed Release (Protonix)Indicatio ns:Esophageal reflux TAKE 1 TABLET BY MOUTH EVERY DAY IN THE MORNING 90 Tablet 3 01/08/2024 Active Atorvastatin Calcium 10 MG Oral Tablet (Lipitor)Indication s:Dyslipidemia, goal LDL below 70 TAKE 1 TABLET BY MOUTH EVERY DAY 90 Tablet 3 03/11/2024 Active Fluticasone Propionate 50 MCG/ACT Nasal Suspension (Flonase)Indication s:Cough SPRAY 2 SPRAYS INTO EACH NOSTRIL EVERY DAY 48 mL 2 03/24/2024 Active Centrum Silver 50+Men Oral Tablet Take by mouth. Ac tive OneTouch Verio w/Device KitIndications:Type 2 diabetes mellitus with hemoglobin A1c goal of less than 8.0% (HCC) Use up to check sugar first thing in am and 2 hours after meals 1 Kit 04/04/2024 Active Insulin Glargine Solostar 100 UNIT/ML Subcutaneous Solution Pen-injector (Lantus SoloStar)Indication s:Type 2 diabetes mellitus with hemoglobin A1c goal of less than 8.0% (HCC) Inject 10 Units under the skin daily. Titrating dose - max dose 30 units daily. DX: E11.9 5 Each 3 04/04/2024 Active Insulin Pen Needle 32G X 6 MMIndications:Type 2 diabetes mellitus with hemoglobin A1c goal of less than 8.0% (HCC) Use to inject insulin once daily. 100 Each 3 04/04/2024 Active metFORMIN HCl ER 500 MG Oral Tablet Extended Release 24 Hour (Glucophage XR)Indications:Type 2 diabetes mellitus with hemoglobin A1c goal of less than 8.0% (HCC) Take 2 Tablets by mouth 2 times a day with morning and evening meals. Begin with one tablet twice daily for one week then increase to two tablets twice daily 360 Tablet 3 04/04/2024 Active Colestipol HCl 1 GM Oral Tablet (Colestid) Take 1 Tablet by mouth in the morning. 30 Tablet 3 05/08/2024 Active OneTouch Verio In Vitro Strip (Glucose Blood)Indications:T ype 2 diabetes mellitus with hemoglobin A1c goal of less than 8.0% (HCC) USE UP TO CHECK SUGARS FIRST THING IN AM AND 2 HOURS AFTER MEALS 100 Strip 1 05/22/2024 Active Slow Magnesium/Calcium 64-106 MG Oral Tablet Delayed Release (magnesium chloride)Indication s:Hypomagnesemia Take 2 Tablets by mouth in the morning and 2 Tablets before bedtime. 05/22/2024 Active OneTouch Delica Plus [id number] s:Type 2 diabetes mellitus with hemoglobin A1c goal of less than 8.0% (HCC) USE UP TO CHECK SUGAR FIRST THING IN AM AND 2 HOURS AFTER MEALS 100 Each 1 05/25/2024 Active Eliquis 5 MG Oral Tablet (Apixaban)Indicatio ns:Persistent atrial fibrillation (HCC) TAKE 1 TABLET BY MOUTH TWICE A DAY 180 Tablet 1 05/28/2024 Active Hospital, Clinic, or Other Facility Administered Medication Ordered Dose Route Frequency Start Date End Date Status Testosterone Cypionate (Depotestosterone Cypionate) 200 MG/ML inj 100 mgIndications:Hypogonadism, male 100 mg IM QMONTH 01/11/2021 Active documented as of this encounter (statuses as of 05/29/2024) Active Problems Problem Noted Date Diagnosed Date [...] as of this encounter (statuses as of 05/29/2024) Resolved Problems Problem Noted Date Diagnosed Date [...] or gangrene 12/23/2010 09/05/2017 OSTEOARTHROS NOS-RIGHT HIP 10/08/200911/06/2016 ADVANCE DIRECTIVE INFORMATION 01/21/2008 09/26/2023 Overview: Yes, copy scanned at patient level in the electronic medical record. Patient aware they must notify their healthcare provider of changes. (Go to More Activities and Patient Files to view) 04/29/2011 NONSPECIF SKIN ERUPT NEC 01/17/2005 DIVERTICULITIS OF COLON 04/15/200402/23 documented as of this encounter (statuses as of 05/29/2024) Immunizations Name Administration Dates Next Due COVID-19 mRNA, LNP-s, No Pre serve, 2-Dose Series (Off & Away) 06/29/2021,12/15/2020,11/24/2020 COVID-19, LNP-s, No Preserve , Deric-sucrose, Ages 12+ (Pfizer) 02/04/2022 COVID-19, MRNA-LNP, 23-24, P F, 30 MCG/0.3 mL, 12 YRS AND ABOVE, IM (PasswordBox-Comirnaty) 10/10/2023 Covid-19, Mrna, Lnp-s, Pf, B ivalent, [...] as of this encounter Progress Notes * Luly Lance, LEXII - 05/28/2024 1:51 PM EDT Podiatry New Patient Note [facility] Name: Jhon Nelson : 1945 Date: 05/28/2024 CHIEF COMPLAINT: Bilateral foot pain HISTORY OF PRESENT ILLNESS: This patient is a 78 year old male who presents today with complaints of bilateral foot pain. He states there is a painful lesion to the bottom of his foot. He feels best in a padded shoe, not barefoot or in socks. He would like his nails trimmed. He states this has beengoing on for several months. Wears supportive shoes. Denies any other complaints. 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 Bowel obstruction ([facility]) Cardiac pacemaker in situ 11/19/2020 Diverticulitis of colon Glaucoma 01/30/2007 dr rivas HTN, goal below 140/90 12/11/2018 Impotence of organic origin Left carotid stenosis 08/18/2020 PAF (paroxysmal atrial fibrillation) ([facility]) 02/01/2022 Panniculitis 03/07/2012 Type 2 diabetes mellitus with hemoglobin A1c goal of less than 8.0% ([facility]) 08/24/2022 Past Surgical History: Procedure Laterality Date COLONOSCOPY 11/18/2005 Normal repeat in 10 years COLONOSCOPY, DIAGNOSTIC (RECTUM) 01/21/2016 diverticulosis, repeat 10 yrs/COLONOSCOPY FLEXIBLE PROXIMAL DIAGNOSTIC performed by Steve Bahena MD at [facility]COPY [facility] COLONOSCOPY, DIAGNOSTIC (RECTUM) 05/19/2023 dvierticulosis / COLONOSCOPY FLEXIBLE PROXIMAL DIAGNOSTIC performed by Freddy Arthur MD at [facility]OSCOPY [facility] CYSTOSCOPY 02/26/2013 CYSTOSCOPY 08/05/2014 CYSTOSCOPY 12/26/2014 CYSTOSCOPY/DILATE BLADDER N/A 01/27/2015 CYSTOURETHROSCOPY DILATION BLADDER GENERAL ANESTHESIA performed by Colt North MD at [facility] CYSTOSCOPY/TREAT MINOR LESION(S) N/A 01/27/2015 CYSTOURETHROSCOPY WITH FULGURATION MINOR BLADDER TUMOR performed by Colt North MD at [facility] IMPLANT MESH W/ ABD HERNIA REPR/DEBRIDE 08/14/2012 IMPLANTATION MESH WITH INCISIONAL/VENTRAL HERNIA performed by Adryan Kunz MD at [facility] MUSCLE-SKIN FLAP, TRUNK 10/18/2011 MUSCLE MYOCUTANEOUS OR FASCIOCUTANEOUS FLAP TRUNK performed by NANCY GARCIA at [facility] MUSCLE-SKIN FLAP, TRUNK 10/25/2011 MUSCLE MYOCUTANEOUS OR FASCIOCUTANEOUS FLAP TRUNK performed by NANCY GARCIA at [facility] PARTIAL REMOVAL OF COLON REMOVAL OF APPENDIX REMOVAL OF PROSTATE (TURP) 01/27/2015 TRANSURETHRAL RESECTION PROSTATE ELECTROSURGICAL performed by Colt North MD at [facility] REMOVAL OF TONSILS, UNDER AGE 12 REMOVE GALLBLADDER REPAIR INITIAL INCISIONAL OR VENTRAL HERNIA; REDUCIBLE 04/25/2011 REPAIR INITIAL INCISIONAL /VENTRAL HERNIA REDUCIBLE performed by [place] CHRISTINE [place] [facility]not performed REPAIR INITIAL INCISIONAL OR VENTRAL HERNIA; REDUCIBLE 09/22/2011 REPAIR INITIAL INCISIONAL /VENTRAL HERNIA REDUCIBLE performed by [place] CHRISTINE at [place] [facility] REPAIR INITIAL INCISIONAL OR VENTRAL HERNIA; REDUCIBLE 10/25/2011 REPAIR INITIAL INCISIONAL /VENTRAL HERNIA REDUCIBLE performed by [place] CHRISTINE at [place] [facility] REPAIR INITIAL INCISIONAL OR VENTRAL HERNIA; REDUCIBLE 08/14/2012 REPAIR INITIAL INCISIONAL /VENTRAL HERNIA REDUCIBLE performed by Adryan Kunz MD at [facility] REPLACEMENT AORTIC VALVE, BYPASS WITH PROSTHETIC VALVE N/A 07/10/2020 REPLACEMENT AORTIC VALVE, BYPASS WITH PROSTHETIC VALVE performed by Ag Ballesteros MD at [facility] TOTAL HIP REPLACEMENT & PROSTHESIS 11/04/2013 Right - Dr. 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[employer] Employer: [employer] [id number] Tobacco Use Smoking status: Former Types: Cigars Quit date: 04/17/2010 Years since quittin.1 Smokeless tobacco: Never Vaping Use Vaping status: Never Used Substance and Sexual Activity Alcohol use: Yes Alcohol/week: 5.8 standard drinks of alcohol Types: 7 5 oz of wine per week Comment: a glass in the evening on occasion Drug use: No Sexual activity: Yes Partners: Female Other Topics Concern Service Yes Comment: [place] 1 year Blood Transfusions Yes Comment: [id number] Caffeine Concern Yes Comment: lots of coffee 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 Hobby Hazards No Sleep Concern No Stress Concern No Weight Concern No Special Diet No Exercise Yes Seat Belt Yes Self-Exams Yes Social Determinants of Health Food Insecurity: No Food Insecurity (08/23/2022) Hunger Vital Sign Worried About Running Out of Food in the Last Year: Never true Ran Out of Food in the Last Year: Never true Social Connections Current Outpatient Medications Medication Sig Dispense Refill GINKOBA 40 MG OR TABS 0 GLUCOSAMINE CHONDROITIN OR TABS tid (Patient taking differently: Take by mouth daily.) 90 5 VITAMIN C 500 MG PO TABS 1 TABLET DAILY 0 CALCIUM CITRATE + D 315-200 MG-UNIT PO TABS one tab daily COLACE 100 MG PO CAPS one cap daily latanoprost (XALATAN) 0.005 % ophthalmic solution Instill 1 Drop into both eyes at bedtime. 11 amoxicillin (AMOXIL) 500 MG Capsule Take 1 Capsule by mouth daily as needed. Patient takes prior todental appointments. Albuterol Sulfate HFA 108 (90 Base) MCG/ACT Inhalation Aerosol Solution Inhale 2 Puffs by mouth 4 times a day. 54 g 3 Metoprolol Succinate ER 25 MG Oral Tablet Extended Release 24 Hour (toPROL XL) TAKE 1 TABLET BY MOUTH EVERY DAY 90 Tablet 3 Cranberry 500 MG Oral Tablet Take 500 mg by mouth in the morning. Spironolactone 25 MG Oral Tablet (Aldactone) TAKE 1/2 TABLET BY MOUTH EVERY DAY 45 Tablet 3 Furosemide 40 MG Oral Tablet (Lasix) TAKE 2 TABLETS BY MOUTH IN THE MORNING 180 Tablet 3 Pantoprazole Sodium 40 MG Oral Tablet Delayed Release (Protonix) TAKE 1 TABLET BY MOUTH EVERY DAY IN THE MORNING 90 Tablet 3 Atorvastatin Calcium 10 MG Oral Tablet (Lipitor) TAKE 1 TABLET BY MOUTH EVERY DAY 90 Tablet 3 Fluticasone Propionate 50 MCG/ACT Nasal Suspension (Flonase) SPRAY 2 SPRAYS INTO EACH NOSTRIL EVERYDAY 48 mL 2 Centrum Silver 50+Men Oral Tablet Take by mouth. [employer] w/Device Kit Use up to check sugar first thing in am and 2 hours after meals 1 Kit 0 Insulin Glargine Solostar 100 UNIT/ML Subcutaneous Solution Pen-injector (Lantus SoloStar) Inject 10 Units under the skin daily. Titrating dose - max dose 30 units daily. DX: E11.9 5 Each 3 Insulin Pen Needle 32G X 6 MM Use to inject insulin once daily. 100 Each 3 metFORMIN HCl ER 500 MG Oral Tablet Extended Release 24 Hour (Glucophage XR) Take 2 Tablets by mouth 2 times a day with morning and evening meals. Begin with one tablet twice daily for one week then increase to two tablets twice daily 360 Tablet 3 Colestipol HCl 1 GM Oral Tablet (Colestid) Take 1 Tablet by mouth in the morning. 30 Tablet 3 OneTouch Verio In Vitro Strip (Glucose Blood) USE UP TO CHECK SUGARS FIRST THING IN AM AND 2 HOURS AFTER MEALS 100 Strip 1 Slow Magnesium/Calcium 64-106 MG Oral Tablet Delayed Release (magnesium chloride) Take 2 Tablets bymouth in the morning and 2 Tablets before bedtime. OneTouch Delica Plus [id number] USE UP TO CHECK SUGAR FIRST THING IN AM AND 2 HOURS AFTER MEALS 100 Each 1 Eliquis 5 MG Oral Tablet (Apixaban) TAKE 1 TABLET BY MOUTH TWICE A DAY 180 Tablet 1 Current Facility-Administered Medications Medication Dose Route Frequency Provider Last Rate Last Admin Testosterone Cypionate (Depotestosterone Cypionate) 200 MG/ML inj 100 mg 100 mg Intramuscular Q Month Justen Ewing, DO 100 mg at 05/06/24 1421 ALLERGIES: Review of patient's allergies indicates: Allergen Reactions Demerol Neuro complications (Please comment) confusion Tape [Adhesive Tape] Rash REVIEW OF SYSTEMS: CONSTITUTIONAL: No change in weight, No weakness, No fatigue, and No fevers, sweats, or chills EYE: No recent significant change in vision and No eye pain, redness, discharge EARS: No ear pain and No recent change in hearing NOSE: No history of frequent colds or sinusitis and No nasal stuffiness PULMONARY: No cough, sputum, or hemoptysis and No recent change in breathing CARDIOVASCULAR: No chest pain and No shortness of breath EXTREMITIES: Bilateral foot pain SKIN/INTEGUMENTARY: No edema, No rash, and No itching NEUROLOGIC: Normal balance, No headaches, No seizures, and No weakness PSYCHIATRIC: No depression, No anxiety, and No psychosis FOCUSED PODIATRIC EXAM: Vitals: There were no vitals filed for this visit. General: Patient is awake alert oriented to person place time. No apparent distress. Vascular: DP/PT pulses palpable, matthew. CFT < 3 sec 1-5, matthew. No edema noted, matthew. Temperature gradient is normal warm to cold, matthew. Neurologic: Protective sensation intact to light touch, matthew. Sensation to sharp/dull is intact, matthew. Dermatological: Skin is normal in appearance with no open lesions or interdigital macerations, matthew. Nails 1-5, matthew are elongated, thickened and discolored. Pedal hair is noted, matthew. Callus noted to the left heel and1st MPJ plantarly as well as the right foot to the lateral foot and sub 1st metatarsal head. Musculoskeletal: POP noted to calluses, matthew. No pain with active or passive ROM of the digits or ankle joint, matthew. Muscle strength is 5/5 for all muscle groups of the lower extremity, matthew. DIAGNOSTIC STUDIES: None ASSESSMENT: Bilateral foot pain Callus DM2 CKD PLAN: - Calluses debrided with a 15 blade x4. Pt felt relief. Explained these will always come back. - List of local nail care providers given. - Rx for diabetic shoes/inserts given as well as places to obtain. - Activity to tolerance - Pt to RTC PRN. Instructed to call with any problems or questions. Luly Lance DPM Referring: Lokesh Amin MD documented in this encounter Nursing Notes * Amanda Rhoades LPN - 05/28/2024 1:38 PM EDT Pt presents for new visit, referred by PCP. Skin concern on bottom of R foot x several months, recently became painful. Feels best in padded shoes, not barefoot or in socks. Has not tried any remedies, all the labels warned not to use if diabetic. documented in this encounter Plan of Treatment Upcoming Encounters Date Type Department Care Team (Late st Contact Info) Description 05/31/2024 2:20 PM EDT Office Visit Nephrology, [facility] [address] [place] [address] Isa Long MD [address] [place], [place] [address] [address] 06/06/2024 1:30 PM EDT Office Visit Pharmacy, [facility] [place] [address] [place] [address] [address] Pharmacist1, [facility] [address] [place] [address] 06/06/2024 2:00 PM EDT Nurse Only Ancillary [facility] Jennifer [place] [address] [place] [address] Nurse, Int Med [address] [place] [address] 08/28/2024 1:30 PM EST Office Visit Gastroenterology, [facility] [address] [place] [address] Rain Medellin CRNP [address] [place] [address] 11/14/2024 2:00 PM EST Office Visit General Internal Medicine [facility] [address] [facility] [place] [address] Lokesh Amin MD [address] [facility] [place] [address] 11/14/2024 3:45 PM EST Office Visit [facility] Surgery [facility] [address] [place] [address] Becky Gordon MD [address] [facility] [place] [address] 03/18/2025 10:45 AM EDT Office Visit Dermatology [facility] [address] [facility] [place] [address] Lokesh Mayen MD [address] [facility] [place] [address] Scheduled Procedures Name Priority Associated Diagnoses Date/Ti me COLONOSCOPY FLEXIBLE PROXIMAL DIAGNOSTIC Recall Colon cancer screening Health Maintenance Due Date Last Done Comments Adult Wellness Visit 07/07/2017 07/07/2016 COVID-19 Vaccine ( season) 2024 10/10/2023, 03/02/2023, 02/04/2022, Additional history exists Influenza Vaccine (FLU shot) (#1) 2024 06/26/2023, 06/09/2022, 06/17/2021, Additional history exists Diabetic Eye Exam 08/01/2024 08/01/2023, , 07/25/2005 Albumin/Creatinine Ratio 09/26/2024 09/26/2023, 07/27 HbA1c 10/16/2024 04/15/2024, 070 11/2023, 09/26/2023, Additional history exists GFR 11/22/2024 05/23/2024, 04/26, 05/13/2024, Additional history exists CKD PHOS USE SMARTSET 30444 03/27/2025 0711/2023, 09/26/2023, 08/23/2022, Additional history exists Depression Screening 03/27/2025 03/27/2024 Diabetic Foot Exam 03/27/2025 03/27/2024, 02/21/2023 CKD HGB USE SMARTSET 16803 04/26/202504/26, 04/26/2024, 04/15/2024, Additional history exists DTap/Tdap Vaccines (3 - Td or Tdap) 09/07/2029 09/07/2019, 08/24/2009 Pneumococcal Vaccine: 65+ Years Completed 02/08/2016, 02/08/2012, 08/18/2004 Zoster Vaccines Completed 10/09/2020, 03/04/2020 Hepatitis B Vaccine Completed 04/01/2024, 2023, 09/29/2023 HPV (Gardasil) Vaccine Aged Out No lo nger eligible based on patient's age to complete this topic MENINGOCOCCAL (MENACTRA/MENVEO) Aged Out No longer eligible based on patient's age to complete this topic documented as of this encounter Medical Devices Implanted Type Area Junior Java Developer Device Identifier Shelf Expiration Date Model / Serial / Lot Strattice [id number] (400 Units) - [id number] Implanted:Qty : 400 on 10/25/2011 at [place] [facility] Abdomen LIFE CELL MISTY 12/23/2012 [id number] / / [id number] Mesh Prolit Hernia [id number] - [id number] Implanted:Qty : 1 on 08/14/2012 at [place] [facility] Left: Abdomen [employer] MISTY 12/24/2015 [id number] / / [id number] Suture Steel 6 B&S19 M654g - [id number] Implanted:Qty : 3 on 07/10/2020 by Ag Ballesteros MD at [place] [facility] N/A: Sternum JNJ : [employer] 02/22/2025 [id number] / / [id number] Valve Heart Aortic Epic 23mm - [id number] - [id number] Implanted:Qty : 1 on 07/10/2020 by Ag Ballesteros MD at [place] [facility] N/A: Aorta ST DOMINIK : CARDIOVASCULAR [id number] 03/22/2024 [id number] / [id number] / [id number] documented as of this encounter Visit Diagnoses Diagnosis Bilateral foot pain- Primary Pain in limb Stage 3a chronic kidney disease Type 2 diabetes mellitus with hemoglobin A1c goal of less than 8.0% (HCC) Callus Corns and callosities documented in this encounter Advance Directives * [...] and were consensually agreed upon. Care Teams Journeyman Plumber Relationship Specialty Start Date End Date Lokesh Amin MD [address] [facility] [place] [address] PCP - General Internal Medicine 07/22/21 documented as of this encounter
--- OUTSIDE RECORDS SUMMARY | 2024-07-19 11:33 | External Medical Summary ---
Author Name Unknown Address Unknown Organization [id number]:[facility] [place] [address] [place] [address] Laboratory Report Ordering Provider Test Date Status ANUJ POST 05/29/2024 13:35:32 Final Deficient: <20 ng/mL
Ins ufficient: 20-29 ng/mL
Recommended/Optimum:30-50 ng/mL

Vitamin D intoxication is rare. If suspicious of Vitamin D toxicity, evaluation of serum Calcium and PTH is recommended. Observation Date Value Abnormality Reference (Units ) Status 25-OH Vitamin D total 05/29/2024 13:35:32 60 >19 (ng/mL) Final Performing Location [facility] [place] [address] [place] [address]
--- OUTSIDE RECORDS SUMMARY | 2024-07-19 11:33 | External Medical Summary ---
Author Name Unknown Address Unknown Organization [id number]:LABORATORY [facility] - [address] [place] [address] Laboratory Report Ordering Provider Test Date Status ANUJ POST 05/29/2024 13:35:32 Final Observation Date Value Abnormality Reference (Units ) Status Phosphate 05/29/2024 13:35:32 3.3 2.5-4.8 (m g/dL) Final Performing Location LABORATORY [facility] - [address] [place] [address]
--- OUTSIDE RECORDS SUMMARY | 2024-07-19 11:33 | External Medical Summary ---
Author Name Unknown Address Unknown Organization K09:[place] [address] Laboratory Report Ordering Provider Test Date Status COREY JARAMILLO 05/29/2024 13:35:32 Final Observation Date Value Abnormality Reference (Units ) Status BUN 05/29/2024 13:35:32 17 6-20 (mg/dL) Final Creatinine 05/29/2024 13:35:32 1.3 Above high normal 0.6-1.2 (mg/dL) Final Glomerular filtration rate/1.73 sq M.predicted [Volume Rate/Area] in Serum, Plasma or Blood by Creatinine-based formula (CKD-EPI) 05/29/2024 13:35:32 57 Below low normal >=60 (mL/min) Final eGFR is calculated based on the CKD-EPI 2020 equation. Sodium 05/29/2024 13:35:32 139 135-146 (m mol/L) Final Potassium 05/29/2024 13:35:32 4.3 3.5-5.1 (m mol/L) Final Cl 05/29/2024 13:35:32 101 98-107 (mm ol/L) Final CO2 05/29/2024 13:35:32 26 22-32 (mmo l/L) Final Anion gap 05/29/2024 13:35:32 12 7-15 (mmol /L) Final Glucose 05/29/2024 13:35:32 111 70-120 (mg /dL) Final Calcium 05/29/2024 13:35:32 9.5 8.4-10.2 ( mg/dL) Final Performing Location [facility] [place] [address]
--- OUTSIDE RECORDS SUMMARY | 2024-07-19 11:33 | External Medical Summary | Summary of Care ---
Author Name Unknown Organization [facility] Address [address] [place] [address] Phone [phone] Care Team Providers Care Civil Attorney Name Role Phone Lokesh Amin MD Primary Care Provider + Reason for Visit * Reason Comments NEW PATIENT R foot * Evaluate & Treat - Unlimited Visits (Within 10 days (routine)) - Authorized Specialty Diagnoses / Procedures Referred By Gladys vazquez Referred To Contact Podiatry Diagnoses Foot lesion Lokesh Amin MD [address] [place] [address] Referral ID Status Reason Start Date Expiration Date Visits Requested Visits Authorized [id number] Authorized Specialty Services Required 05/22/2024 [id number] Encounter Details Date Type Department Care Team (Late st Contact Info) Description 05/28/2024 1:40 PM EDT Office Visit Podiatry [facility] [address] [place] [address] Luly Lance DPM [address] [place] [address] Bilateral foot pain*; Stage 3a chronic kidney [...] before bedtime. 05/22/2024 Active OneTouch Delica Plus [id number] s:Type 2 diabetes mellitus with hemoglobin A1c [...] mRNA, LNP-s, No Pre serve, 2-Dose Series (Front Up) 06/29/2021,12/15/2020,11/24/2020 COVID-19, LNP-s, No Preserve , Deric-sucrose, Ages 12+ (Pfizer) 02/04/2022 COVID-19, MRNA-LNP, 23-24, P F, 30 MCG/0.3 mL, 12 YRS AND ABOVE, IM (Mach 1 Development-Comirnaty) 10/10/2023 Covid-19, Mrna, Lnp-s, Pf, B ivalent, [...] 1:51 PM EDT Podiatry New Patient Note [facility] Name: Jhon Nelson : 1945 Date: 05/28/2024 [...] Diagnosis Date Acute pancreatitis Adrenal mass, left ([facility]) 12/26/2014 Bowel obstruction ([facility]) Cardiac pacemaker in situ 11/19/2020 Diverticulitis of colon Glaucoma 01/30/2007 dr rivas HTN, goal below 140/90 12/11/2018 Impotence of organic origin Left carotid stenosis 08/18/2020 PAF (paroxysmal atrial fibrillation) ([facility]) 02/01/2022 Panniculitis 03/07/2012 Type 2 diabetes mellitus with hemoglobin A1c goal of less than 8.0% ([facility]) 08/24/2022 Past Surgical History: Procedure Laterality Date COLONOSCOPY 11/18/2005 Normal repeat in 10 years COLONOSCOPY, DIAGNOSTIC (RECTUM) 01/21/2016 diverticulosis, repeat 10 yrs/COLONOSCOPY FLEXIBLE PROXIMAL DIAGNOSTIC performed by Steve Bahena MD at [facility] COLONOSCOPY, DIAGNOSTIC (RECTUM) 05/19/2023 dvierticulosis / COLONOSCOPY FLEXIBLE PROXIMAL DIAGNOSTIC performed by Freddy Arthur MD at [facility]COPY [facility] CYSTOSCOPY 02/26/2013 CYSTOSCOPY 08/05/2014 CYSTOSCOPY 12/26/2014 CYSTOSCOPY/DILATE BLADDER N/A 01/27/2015 CYSTOURETHROSCOPY DILATION BLADDER GENERAL ANESTHESIA performed by Colt North MD at [facility] CYSTOSCOPY/TREAT MINOR LESION(S) N/A 01/27/2015 CYSTOURETHROSCOPY WITH FULGURATION MINOR BLADDER TUMOR performed by Colt North MD at [facility] IMPLANT MESH W/ ABD HERNIA REPR/DEBRIDE 08/14/2012 IMPLANTATION MESH WITH INCISIONAL/VENTRAL HERNIA performed by Adryan Kunz MD at [facility] MUSCLE-SKIN FLAP, TRUNK 10/18/2011 MUSCLE MYOCUTANEOUS OR FASCIOCUTANEOUS FLAP TRUNK performed by NANCY GARCIA at [facility] MUSCLE-SKIN FLAP, TRUNK 10/25/2011 MUSCLE MYOCUTANEOUS OR FASCIOCUTANEOUS FLAP TRUNK performed by NANCY GARCIA at [facility] PARTIAL REMOVAL OF COLON REMOVAL OF APPENDIX REMOVAL OF PROSTATE (TURP) 01/27/2015 TRANSURETHRAL RESECTION PROSTATE ELECTROSURGICAL performed by Colt North MD at [facility] REMOVAL OF TONSILS, UNDER AGE 12 REMOVE GALLBLADDER REPAIR INITIAL INCISIONAL OR VENTRAL HERNIA; REDUCIBLE 04/25/2011 REPAIR INITIAL INCISIONAL /VENTRAL HERNIA REDUCIBLE performed by [place] CHRISTINE at [place] [facility]-not performed REPAIR INITIAL INCISIONAL OR VENTRAL HERNIA; REDUCIBLE 09/22/2011 REPAIR INITIAL INCISIONAL /VENTRAL HERNIA REDUCIBLE performed by [place] CHRISTINE at [place] [facility] REPAIR INITIAL INCISIONAL OR VENTRAL HERNIA; REDUCIBLE 10/25/2011 REPAIR INITIAL INCISIONAL /VENTRAL HERNIA REDUCIBLE performed by [place] CHRISTINE at OR [facility] REPAIR INITIAL INCISIONAL OR VENTRAL HERNIA; REDUCIBLE 08/14/2012 REPAIR INITIAL INCISIONAL /VENTRAL HERNIA REDUCIBLE performed by Adryan Kunz MD at [facility] REPLACEMENT AORTIC VALVE, BYPASS WITH PROSTHETIC VALVE N/A 07/10/2020 REPLACEMENT AORTIC VALVE, BYPASS WITH PROSTHETIC VALVE performed by Ag Ballesteros MD at [facility] TOTAL HIP REPLACEMENT & PROSTHESIS 11/04/2013 Right - Dr. 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 Oncovision w/Device Kit Use up to check sugar [...] 2 Tablets before bedtime. OneTouch Delica Plus [id number] USE UP TO CHECK SUGAR FIRST THING [...] 05/31/2024 2:20 PM EDT Office Visit Nephrology, [facility] [address] [place] [address] [address] Isa Long MD [address] [place], [place] [address] [address] 06/06/2024 1:30 PM EDT Office Visit Pharmacy, [facility] [place] [address] [place] [address] Pharmacist1, [facility] [address] [place] [address] 06/06/2024 2:00 PM EDT Nurse Only Ancillary [facility] Jennifer [place] [address] [place] [address] [address] Nurse, Int Med [address] [place] [address] 08/28/2024 1:30 PM EST Office Visit Gastroenterology, [facility] [address] [place] [address] Rain Medellin CRNP [address] [place] [address] 11/14/2024 2:00 PM EST Office Visit General Internal Medicine [facility] [address] [facility] [place] [address] Lokesh Amin MD [address] [facility] [place] [address] 11/14/2024 3:45 PM EST Office Visit MOHS Surgery [facility] [address] [place] [address] Becky Gordon MD [address] [facility] [place] [address] 03/18/2025 10:45 AM EDT Office Visit Dermatology [facility] [address] [facility] [place] [address] Lokesh Mayen MD [address] [facility] [place] [address] Scheduled Procedures Name Priority Associated Diagnoses Date/Ti [...] 11/26/2024 05/29/2024, 04/26, 05/21/2024, Additional history exists CKD PHOS USE SMARTSET 02768 03/27/2025 0711/2023, 09/26/2023, 08/23/2022, Additional history exists Depression Screening 03/27/2025 03/27/2024 Diabetic Foot Exam 03/27/2025 03/27/2024, 02/21/2023 CKD HGB USE SMARTSET 92163 04/26/202504/26, 04/26/2024, 04/15/2024, Additional history exists DTap/Tdap [...] this encounter Medical Devices Implanted Type Area Appraiser Auditor Device Identifier Shelf Expiration Date Model / Serial / Lot Strattice [id number] (400 Units) - [id number] Implanted:Qty : 400 on 10/25/2011 at [place] [facility] Abdomen [employer] MISTY 12/23/2012 [id number] / / [id number] Mesh Prolit Hernia [id number] - [id number] Implanted:Qty : 1 on 08/14/2012 at OR [facility] Left: Abdomen [employer] 12/24/2015 [id number] / / [id number] Suture Steel 6 B&S19 M654g - [id number] Implanted:Qty : 3 on 07/10/2020 by Ag Ballesteros MD at [facility] N/A: Sternum JNJ : [employer] 02/22/2025 [id number] / / [id number] Valve Heart Aortic Epic 23mm - [id number] - [id number] Implanted:Qty : 1 on 07/10/2020 by Ag Ballesteros MD at OR [facility] N/A: Aorta ST DOMINIK : CARDIOVASCULAR [id number] 03/22/2024 [id number] / [id number] / [id number] documented as of this encounter Visit Diagnoses [...] and were consensually agreed upon. Care Teams Civil Attorney Relationship Specialty Start Date End Date Lokesh Amin MD [address] [facility] [place] [address] PCP - General Internal Medicine 07/22/21 documented as of this encounter
--- OUTSIDE RECORDS SUMMARY | 2024-07-19 11:33 | External Medical Summary | Summary of Care ---
Author Name Unknown Organization [facility] Address [address] [place] [address] Phone [phone] Care Team Providers Care Pin Inserter Regulator Name Role Phone Lokesh Amin MD Primary Care Provider + Reason for Visit * Reason Comments Chronic Kidney Disease (CKD) * Evaluate & Treat - Unlimited Visits (Within 3 days (urgent)) - Authorized Specialty Diagnoses / Procedures Referred By Gladys vazquez Referred To Contact Nephrology Diagnoses Hypomagnesemia Lokesh Amin MD [address] [place] [address] Referral ID Status Reason Start Date Expiration Date Visits Requested Visits Authorized [id number] Authorized Specialty Services Required 05/22/[phone] Encounter Details Date Type Department Care Team (Late st Contact Info) Description 05/31/2024 2:20 PM EDT Office Visit Nephrology, [facility] [place] [address] [place] [address] Isa Long MD [address] [place] [id number] Stage 3a chronic kidney disease*; Hypomagnesemia; Heart failure, diastolic, due to HTN (HCC) Allergies Active Allergy Reactions Criticality Noted Date Comments Demerol Neuro complications (Please comment) High 06/14/2010 confusion Adhesive Tape Rash Low 06/14/2010 documented as of this encounter (statuses as of 05/31/2024) Medications Medication Sig Dispensed Refills Start Date [...] before bedtime. 05/22/2024 Active OneTouch Delica Plus [id number] ons:Type 2 diabetes mellitus with hemoglobin A1c [...] as of this encounter (statuses as of 05/31/2024) Active Problems Problem Noted Date Diagnosed Date [...] as of this encounter (statuses as of 05/31/2024) Resolved Problems Problem Noted Date Diagnosed Date [...] as of this encounter (statuses as of 05/31/2024) Immunizations Name Administration Dates Next Due COVID-19 mRNA, LNP-s, No Pre serve, 2-Dose Series ([employer]) 06/29/2021,12/15/2020,11/24/2020 COVID-19, LNP-s, No Preserve , Deric-sucrose, Ages 12+ (Pfizer) 02/04/2022 COVID-19, MRNA-LNP, 23-24, P F, 30 MCG/0.3 mL, 12 YRS AND ABOVE, IM ([employer]Comirnat) 10/10/2023 Covid-19, Mrna, Lnp-s, Pf, B ivalent, 30 Mcg, IM, 12 yrs and above ([employer]) 03/02/2023 Hepatitis B, 20+ yrs 04/01/2024,2023,09/29 Pneumococcal [...] on file documented as of this encounter Last Filed Vital Signs Vital Sign Reading Time Taken Comments Blood Pressure 112/71 05/31/2024 2:29 PM EDT Pulse 81 05/31/2024 2:29 PM EDT Temperature 36.2 C (97.2 F) 05/31/2024 2:29 PM ED T Respiratory Rate 18 05/31/2024 2:29 PM EDT Oxygen Saturation 98% 05/31/2024 2:29 PM EDT Inhaled Oxygen Concentration - - Weight 87.5 kg (193 lb) 05/31/2024 2:29 PM EDT Height - - Body Mass Index 29.78 03/27/2024 12:09 PM EDT documented in this encounter Functional Status Functional Status Response [...] as of this encounter Progress Notes * Isa Long MD - 05/31/2024 2:29 PM EDT REASON FOR CONSULT: Low Mag Requesting physician:Lokesh Amin MD HPI: Jhon Nelson is a 78 year old male with PMH of type 2DM on insulin since February 2024, HFpEF onlasix 80mg daily, HTN, s/p aortic valve replacement Jun 2020, 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 pt with mag running in 1-1.1 in . He is now on Slow-Mag 2 tablets twice daily. He had IVmag infusion on 05/24. Mag was 2.2 the day after. Recent Mag level was 1.6 on 05/29. Review of Systems: General ROS: negative for - chills or fever Psychological ROS: negative for - mood swings ENT ROS: negative for - nasal congestion or nasal discharge Endocrine ROS: negative Respiratory ROS: no cough, shortness of breath, or wheezing Cardiovascular ROS: no chest pain or dyspnea on exertion Gastrointestinal ROS: no abdominal pain, change in bowel habits, or black or bloody stools Genito-Urinary ROS: no dysuria, trouble voiding, or hematuria Musculoskeletal ROS: negative for - muscle pain Neurological ROS: no TIA or stroke symptoms Dermatological ROS: negative for rash Past Medical History: Diagnosis Date Acute pancreatitis Adrenal mass, 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 Bowel obstruction ([facility]) Cardiac pacemaker in situ 11/19/2020 Diverticulitis of colon Glaucoma 01/30/2007 dr rivas HTN, goal below 140/90 12/11/2018 Impotence of organic origin Left carotid stenosis 08/18/2020 PAF (paroxysmal atrial fibrillation) ([facility]) 02/01/2022 Panniculitis 03/07/2012 Type 2 diabetes mellitus with hemoglobin A1c goal of less than 8.0% ([facility]) 08/24/2022 Past Surgical History: Procedure Laterality Date COLONOSCOPY 11/18/2005 Normal repeat in 10 years COLONOSCOPY, DIAGNOSTIC (RECTUM) 01/21/2016 diverticulosis, repeat 10 yrs/COLONOSCOPY FLEXIBLE PROXIMAL DIAGNOSTIC performed by Steve Bahena MD at [facility] COLONOSCOPY, DIAGNOSTIC (RECTUM) 05/19/2023 dvierticulosis / COLONOSCOPY FLEXIBLE PROXIMAL DIAGNOSTIC performed by Freddy Arthur MD at [facility]OSCOPY [facility] CYSTOSCOPY 02/26/2013 CYSTOSCOPY 08/05/2014 CYSTOSCOPY 12/26/2014 CYSTOSCOPY/DILATE BLADDER N/A 01/27/2015 CYSTOURETHROSCOPY DILATION BLADDER GENERAL ANESTHESIA performed by Colt North MD at [facility] CYSTOSCOPY/TREAT MINOR LESION(S) N/A 01/27/2015 CYSTOURETHROSCOPY WITH FULGURATION MINOR BLADDER TUMOR performed by Colt North MD at [facility] IMPLANT MESH W/ ABD HERNIA REPR/DEBRIDE 08/14/2012 IMPLANTATION MESH WITH INCISIONAL/VENTRAL HERNIA performed by Adryan Kunz MD at [facility] MUSCLE-SKIN FLAP, TRUNK 10/18/2011 MUSCLE MYOCUTANEOUS OR FASCIOCUTANEOUS FLAP TRUNK performed by NANCY GARCIA at [facility] MUSCLE-SKIN FLAP, TRUNK 10/25/2011 MUSCLE MYOCUTANEOUS OR FASCIOCUTANEOUS FLAP TRUNK performed by NANCY GARCIA at [facility] PARTIAL REMOVAL OF COLON REMOVAL OF APPENDIX REMOVAL OF PROSTATE (TURP) 01/27/2015 TRANSURETHRAL RESECTION PROSTATE ELECTROSURGICAL performed by Colt North MD at [facility] REMOVAL OF TONSILS, UNDER AGE 12 REMOVE GALLBLADDER REPAIR INITIAL INCISIONAL OR VENTRAL HERNIA; REDUCIBLE 04/25/2011 REPAIR INITIAL INCISIONAL /VENTRAL HERNIA REDUCIBLE performed by [place] CHRISTINE at [facility]not performed REPAIR INITIAL INCISIONAL OR VENTRAL HERNIA; REDUCIBLE 09/22/2011 REPAIR INITIAL INCISIONAL /VENTRAL HERNIA REDUCIBLE performed by [place] CHRISTINE at [facility] REPAIR INITIAL INCISIONAL OR VENTRAL HERNIA; REDUCIBLE 10/25/2011 REPAIR INITIAL INCISIONAL /VENTRAL HERNIA REDUCIBLE performed by [place] CHRISTINE at [facility] REPAIR INITIAL INCISIONAL OR VENTRAL HERNIA; REDUCIBLE 08/14/2012 REPAIR INITIAL INCISIONAL /VENTRAL HERNIA REDUCIBLE performed by Adryan Kunz MD at [facility] REPLACEMENT AORTIC VALVE, BYPASS WITH PROSTHETIC VALVE N/A 07/10/2020 REPLACEMENT AORTIC VALVE, BYPASS WITH PROSTHETIC VALVE performed by Ag Ballesteros MD at [facility] TOTAL HIP REPLACEMENT & PROSTHESIS 11/04/2013 Right - Dr. Barbosa Review of patient's allergies indicates: Allergen Reactions Demerol Neuro complications (Please comment) confusion Tape [Adhesive Tape] Rash Current Outpatient Medications Medication Sig Dispense Refill [...] Drop into both eyes at bedtime. 11 Metoprolol Succinate ER 25 MG Oral Tablet [...] Silver 50+Men Oral Tablet Take by mouth. Insulin Glargine Solostar 100 UNIT/ML Subcutaneous Solution Pen-injector (Lantus SoloStar) Inject 10 Units under the skin daily. Titrating dose - max dose 30 units daily. DX: E11.9 (Patient taking differently: Inject 9 Units under the skin daily. Titrating dose - max dose 30 units daily. DX: E11.9)5 Each 3 metFORMIN HCl ER 500 MG [...] mouth in the morning. 30 Tablet 3 Slow Magnesium/Calcium 64-106 MG Oral Tablet Delayed Release (magnesium chloride) Take 2 Tablets bymouth in the morning and 2 Tablets before bedtime. Eliquis 5 MG Oral Tablet (Apixaban) TAKE 1 TABLET BY MOUTH TWICE A DAY 180 Tablet 1 amoxicillin (AMOXIL) 500 MG Capsule Take 1 Capsule by mouth daily as needed. Patient takes prior todental appointments. Albuterol Sulfate HFA 108 (90 Base) MCG/ACT Inhalation Aerosol Solution Inhale 2 Puffs by mouth 4 times a day. 54 g 3 RegeneMedTouch Verio w/Device Kit Use up to check sugar first thing in am and 2 hours after meals 1 Kit 0 Insulin Pen Needle 32G X 6 MM Use to inject insulin once daily. 100 Each 3 OneTouch Verio In Vitro Strip (Glucose Blood) USE UP TO CHECK SUGARS FIRST THING IN AM AND 2 HOURS AFTER MEALS 100 Strip 1 OneTouch Delica Plus [id number] USE UP TO CHECK SUGAR FIRST THING IN AM AND 2 HOURS AFTER MEALS 100 Each 1 Current Facility-Administered Medications Medication Dose Route Frequency Provider Last Rate Last Admin Testosterone Cypionate (Depotestosterone Cypionate) 200 MG/ML inj 100 mg 100 mg Intramuscular Q Month Justen Ewing, DO 100 mg at 05/06/24 1421 Family History Problem Relation Name Age of Onset Diabetes Father Heart Disorder Father Heart Disorder Mother Thyroid Disorder Brother 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[employer] Employer: [employer] Tobacco Use Smoking status: Former Types: Cigars [...] Shilpa 1 year Blood Transfusions Yes Comment: Caffeine Concern Yes Comment: lots of coffee 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 Hazards No Sleep Concern No Stress Concern No Weight Concern No Special Diet No Back Care Not Asked Exercise Yes Bike Helmet Not Asked Seat Belt Yes Self-Exams Yes Social History Narrative Not on file Social Determinants of Health Financial Resource Strain: Not on file Food Insecurity: No Food Insecurity (08/23/2022) Hunger Vital Sign Worried About Running Out of Food in the Last Year: Never true Ran Out of Food in the Last Year: Never true Transportation Needs: Not on file Social Connections: Unknown (03/12/2024) Social Connections How often do you feel lonely or isolated from those around you? (Adult - for ages 18 years and over): Not on file Housing Stability: Not on file Filed Vitals: 05/31/24 1429 BP: 112/71 Pulse: 81 Resp: 18 Temp: 36.2 C (97.2 F) SpO2: 98% Weight: 87.5 kg (193 lb) PHYSICAL EXAM: GENERAL: Well-appearing, Alert, in no acute distress. EYES: PERRL, conjunctivae anicteric. ENT: Mucous membranes moist, oropharynx clear. NECK: Supple, no JVD. LYMPH: No cervical or supraclavicular lymphadenopathy. LUNGS: Clear to auscultation bilaterally, no respiratory distress. CARDIAC: Regular rate and rhythm, normal S1/S2, no murmurs, rubs, or gallops. ABDOMEN: Soft, non-tender, non-distended, bowel sounds present. EXT/MSK: No clubbing, cyanosis, 1+ edema. SKIN: No rash, no jaundice. NEURO: Oriented x3, No tremor, no asterixis. LABS/STUDIES: Recent Labs Units 05/29/24 1335 05/23/24 1534 05/21/24 1235 05/13/24 1358 SODIUM - [facility] mmol/L 139 142 142 141 POTASSIUM - [facility] mmol/L 4.3 4.1 3.8 4.0 CHLORIDE - [facility] mmol/L 101 102 102 104 CO2 - [facility] mmol/L 26 27 27 26 BUN - [facility] mg/dL 17 14 19 15 CREATININE - [facility] mg/dL 1.3* 1.4* 1.3* 1.2 Recent Labs Units 04/26/24 1440 04/15/24 1459 10/27/23 1319 WBC K/uL 5.57 5.23 6.25 HGB g/dL 14.3 13.5* 15.7 PLT K/uL 166 164 179 Recent Labs Units 05/29/24 1335 05/23/24 1534 05/21/24 1235 05/13/24 1358 04/03/24 1447 03/27/24 1234 09/26/23 1425 02/28/23 1016 08/23/22 1539 CALCIUM - [facility] mg/dL 9.5 9.1 9.3 8.8 < > 10.1 -- < > 9.4 PHOSPHORUS - [facility] mg/dL -- -- -- -- -- 3.2 2.5 -- 3.5 < > = values in this interval not displayed. Recent Labs Units 04/15/24 1459 03/27/24 1234 09/26/23 1425 HEMOGLOBIN A1C - [facility] % 11.7* 12.4* 6.7* No results for input(s): "MICROALBUMIN", "PROCRRATIO" in the last 80586 hours. ASSESSMENT/PLAN: Jhon was seen today for chronic kidney disease (ckd). Diagnoses and all orders for this visit: Stage 3a chronic kidney disease Patient with CKD stage IIIA due to hypertension and CHF. Recent creatinine of 1.3. Volume status iscontrolled on Lasix 80 mg daily. He knows to avoid NSAIDs and keep well hydrated. Will check PTH, vitamin-D and phosphorus. Hypomagnesemia Due to increased losses from Lasix and diarrhea. It appears the current dose of Lasix is appropriate for his CHF. Diarrhea seems to be improving with the colestipol. Patient is also on metformin which can sometimes cause diarrhea. Suggest stopping metformin for few weeks to see if it makes a difference. Communication sent to PCP to see if okay with this. Continue current regimen of supplementation with Slow-Mag 2 tablets twice daily. No need for IV magnesium infusions unless levels less than 1.2. Heart failure, diastolic, due to HTN (HCC) He will continue Lasix 80 mg daily. Follow Up: Return in about 3 months (around 08/30/2024). Isa Long MD Nephrology, [address] [place] [address] This note was generated with the help of voice recognition software. Please excuse for errors. documented in this encounter Plan of Treatment Upcoming Encounters Date Type Department Care Team (Late st Contact Info) Description 06/06/2024 1:30 PM EDT Office Visit Pharmacy, [facility] [place] [address] [facility] [place] [address] Pharmacist1, [facility] [address] [facility] [place] [address] 06/06/2024 2:00 PM EDT Nurse Only Ancillary [facility] [place] [address] [facility] [place] [address] Nurse, Int Med [address] [facility] [place] [address] 08/28/2024 1:30 PM EST Office Visit Gastroenterology, [facility] [address] [place] [address] Rain [facility] [address] 09/09/2024 3:00 PM EST Office Visit Nephrology, [facility] [address] [facility] [place] [address] Isa Long MD [address] [place] [address] 11/14/2024 2:00 PM EST Office Visit General Internal Medicine [facility] [place] [address] [facility] [place] [address] Lokesh Amin MD [address] [facility] [place] [address] 11/14/2024 3:45 PM EST Office Visit [facility] 200 [facility] [place] [address] Becky Gordon MD 200 [facility] [place] [address] 03/18/2025 10:45 AM EDT Office Visit Dermatology [facility] [address] [place] [address] Lokesh Mayen MD [facility] [place] [address] Pending Results Name Type Priority Associated Diagnoses Date /Time 25-HYDROXY VITAMIN D Lab Routine Stage 3a chronic kidney disease 05/29/2024 1:35 PM EDT PTH Lab Routine Stage 3a chronic kidney disease 05/29/2024 1:35 PM EDT PHOSPHORUS Lab Routine Stage 3a chronic kidney disease 05/29/2024 1:35 PM EDT Scheduled Procedures Name Priority Associated [...] Additional history exists CKD PHOS USE SMARTSET 76731 03/27/2025 070 11/2023, 09/26/2023, 08/23/2022, Additional history exists Depression Screening 03/27/2025 03/27/2024 Diabetic Foot Exam 03/27/2025 03/27/2024, 02/21/2023 CKD HGB USE SMARTSET 03349 04/26/202504/26, 04/26/2024, 04/15/2024, Additional history exists DTap/Tdap [...] this encounter Medical Devices Implanted Type Area Keypunch Operator Device Identifier Shelf Expiration Date Model / Serial / Lot Strattice [id number] (400 Units) - [id number] Implanted:Qty : 400 on 10/25/2011 at [place] [facility] Abdomen LIFE [employer]LL MISTY 12/23/2012 [id number] / / [id number] Mesh Prolit Hernia [id number] - [id number] Implanted:Qty : 1 on 08/14/2012 at [place] [facility] Left: Abdomen [employer] M[employer] 12/24/2015 [id number] / / [id number] Suture Steel 6 B&S19 M654g - [id number] Implanted:Qty : 3 on 07/10/2020 by Ag Ballesteros MD at [facility] N/A: Sternum JNJ : [employer] 02/22/2025 M654G / / [id number] Valve Heart Aortic Epic 23mm - [id number] - [id number] Implanted:Qty : 1 on 07/10/2020 by Ag Ballesteros MD at [facility] N/A: Aorta ST DOMINIK : CARDIOVASCULAR [id number] 03/22/2024 [id number]- 00 / [id number] / [id number] documented as of this encounter Visit Diagnoses Diagnosis Stage 3a chronic kidney disease- Primary Hypomagnesemia Disorders of magnesium metabolism Heart failure, diastolic, due to HTN (HCC) Unspecified hypertensive heart disease with heart failure documented in this encounter Advance Directives * [...] and were consensually agreed upon. Care Teams Pin Inserter Regulator Relationship Specialty Start Date End Date Lokesh Amin MD [address] [facility] [place] [address] PCP - General Internal Medicine 07/22/21 documented as of this encounter
--- OUTSIDE RECORDS SUMMARY | 2024-07-19 11:33 | External Medical Summary | Summary of Care ---
Author Name Unknown Organization [facility] Address [address] [place] [address] Phone [phone] Care Team Providers Care Wire Brush Operator Name Role Phone Lokesh Amin MD Primary Care Provider + Encounter Details Date Type Department Care Team (Late st Contact Info) Description 05/31/2024 Result Scan Unspecified Department Ancelmo Olvera MD [address] [place] [address] <No scans attached> Allergies Active Allergy Reactions Criticality Noted Date [...] before bedtime. 05/22/2024 Active OneTouch Delica Plus [id number] ons:Type 2 diabetes mellitus with hemoglobin A1c [...] mRNA, LNP-s, No Pre serve, 2-Dose Series ([employer]) 06/29/2021,12/15/2020,11/24/2020 COVID-19, LNP-s, No Preserve , Deric-sucrose, Ages 12+ (Pfizer) 02/04/2022 COVID-19, MRNA-LNP, 23-24, P F, 30 MCG/0.3 mL, 12 YRS AND ABOVE, IM ([employer]Comirnat) 10/10/2023 Covid-19, Mrna, Lnp-s, Pf, B ivalent, [...] 06/06/2024 1:30 PM EDT Office Visit Pharmacy, [facility] 200 [facility] [place] [address] Pharmacist1, [facility] [address] [place] [address] 06/06/2024 2:00 PM EDT Nurse Only Ancillary [facility] [address] [facility] [place] [address] Nurse, Int Med [address] [place] [address] 08/28/2024 1:30 PM EST Office Visit Gastroenterology, [facility] [address] [place] [address] Rain Medellin CRNP [address] [place] [address] 09/09/2024 3:00 PM EST Office Visit Nephrology, [facility] [address] [facility] [place] [address] Isa Long MD [address] [facility] [address] 11/14/2024 2:00 PM EST Office Visit General Internal Medicine [facility] [address] [facility] [place] [address] Lokesh Amin MD [address] [facility] [place] [address] 11/14/2024 3:45 PM EST Office Visit [facility] Surgery [facility] 200 [facility] [place] [address] Becky Gordon MD 200 [facility] [place] [address] 03/18/2025 10:45 AM EDT Office Visit Dermatology [facility] [place] [address] [facility] [place], [place] [address] Lokesh Mayen MD [address] [facility] [place] [address] Scheduled Procedures Name Priority Associated Diagnoses Date/Ti [...] 09/26/2023, Additional history exists GFR 11/26/2024 05/29/2024, 08/05/2024, 05/21/2024, Additional history exists CKD PHOS USE SMARTSET 78730 03/27/2025 07/0 11/2023, 09/26/2023, 08/23/2022, Additional history exists Depression Screening 03/27/2025 03/27/2024 Diabetic Foot Exam 03/27/2025 03/27/2024, 02/21/2023 CKD HGB USE SMARTSET 95678 04/26/202504/26, 04/26/2024, 04/15/2024, Additional history exists DTap/Tdap [...] this encounter Medical Devices Implanted Type Area House Rn Device Identifier Shelf Expiration Date Model / Serial / Lot Strattice [id number] (400 Units) - [id number] Implanted:Qty : 400 [place] 10/25/[place] [facility] Abdomen LIFE CELL MISTY 12/23/2012 [id number] / / [id number] Mesh Prolit Hernia [id number] - [id number] Implanted:Qty : 1 on 08/14/2012 [place] [facility] Left: Abdomen [employer] 12/24/2015 [id number] / / [id number] Suture Steel 6 B&S19 M654g - [id number] Implanted:Qty : 3 on 07/10/2020 by Ag Ballesteros MD [place] [facility] N/A: Sternum JNJ : [employer] 02/22/2025 M654G / / [id number] Valve Heart Aortic Epic 23mm - [id number] - [id number] Implanted:Qty : 1 on 07/10/2020 by Ag Ballesteros MD [place] [facility] N/A: Aorta ST DOMINIK : CARDIOVASCULAR [id number] 03/22/2024 [id number]- 00 / [id number] / [id number] documented as of this encounter Procedures Procedure Name Priority Date/Time Associated Diagnosis Comments CARDIOLOGY SCANNED RESULT 05/31/2024 documented in this encounter Results * CARDIOLOGY SCANNED RESULT (05/31/2024) 05/31/2024 Ancelmo Olvera MD OTHER documented in this encounter Advance Directives * [...] and were consensually agreed upon. Care Teams Wire Brush Operator Relationship Specialty Start Date End Date Lokesh Amni MD [address] [facility] [place] [address] PCP - General Internal Medicine 07/22/21 documented as of this encounter
--- OUTSIDE RECORDS SUMMARY | 2024-07-19 11:33 | External Medical Summary ---
Author Name Unknown Address Unknown Organization K09:[facility] [place] [address] Laboratory Report Ordering Provider Test Date Status ANUJ POST 06/06/2024 14:15:11 Final Observation Date Value Abnormality Reference (Units ) Status Magnesium 06/06/2024 14:15:11 2.1 1.5-2.6 (m g/dL) Final Performing Location [facility] [place] [address]
--- OUTSIDE RECORDS SUMMARY | 2024-07-19 11:33 | External Medical Summary | Summary of Care ---
Author Name Unknown Organization [facility] Address [address] [place] [address] Phone [phone] Care Team Providers Care Credit Review Manager Name Role Phone Lokesh Amin MD Primary Care Provider + Reason for Visit * Reason Comments Dosage Adjustment In Person (Anticoag Cl inic) Diabetes Follow-Up Encounter Details Date Type Department Care Team (Late st Contact Info) Description 06/06/2024 1:30 PM EDT Office Visit Pharmacy, [facility] [address] [facility] [place] [address] Pharmacist1, [facility] 200 [place] [address] Type 2 diabetes mellitus with hemoglobin A1c goal of less than 8.0% ([facility])* Allergies Active Allergy Reactions Criticality Noted Date [...] goal of less than 8.0% ([facility]) Use up to check sugar first [...] before bedtime. 05/22/2024 Active OneTouch Delica Plus [id number] ons:Type 2 diabetes mellitus with hemoglobin A1c [...] mRNA, LNP-s, No Pre serve, 2-Dose Series (STORYS.JP) 06/29/2021,12/15/2020,11/24/2020 COVID-19, LNP-s, No Preserve , Deric-sucrose, Ages 12+ (Pfizer) 02/04/2022 COVID-19, MRNA-LNP, 23-24, P F, 30 MCG/0.3 mL, 12 YRS AND ABOVE, IM ([facility] 10/10/2023 Covid-19, Mrna, Lnp-s, Pf, B [...] as of this encounter Progress Notes * [facility] - 06/06/2024 1:27 PM EDT Medication Therapy Disease Management Clinic - Diabetes Management Progress Note Jhon Nelson, identified by name and date of , is a 78 year old male being seen for diabetes management/education. Patient presents for return diabetic visit. DIABETES: Current diabetic medications: Metformin ER 500mg 1 tablet twice daily DECREASE: Lantus 9 units daily Medication Injection Site: Abdomen Lifestyle: Diet: unchanged History of Treatment Barriers: Lifestyle: None Therapy considerations: Renal Function, Heart Failure - consider using SGLT-2, and History of Medullary Thyroid Cancer - GLP-1 contraindicated Medication: None Glucose Review/SMBG: Readings obtained from patient documented BG logbook Pre am Pre Lunch Pre pm HS 110 127 95 112 114 92 90 162 101 87 87 134 106 129 95 126 90 104 99 99 83 135 149 105 101 113 94 90 106 89 77 112 113 98 97 142 107 95 86 113 101 116 137 113 92 128 98 119 102 100 93 152 114 100 98 121 95 147 134 134 105 103 Pre am Pre Lunch Pre pm HS Average 103 110 102 122 Hi 114 147 149 162 Lo 83 87 77 90 Range 31 60 72 72 Hypoglycemia: Does your blood sugar go below 70 mg/dL? No Hyperglycemia symptoms present: polyurea, polydipsia Goal <8 Recent Labs Units 04/15/24 1459 03/27/24 1234 09/26/23 1425 HEMOGLOBIN A1C - [facility] % 11.7* 12.4* 6.7* Recent Labs Units 05/29/24 1335 05/23/24 1534 05/21/24 1235 ESTIMATED GLOMERULAR FILTRATION RATE - [facility] mL/min 57* 54* 57* CREATININE - [facility] mg/dL 1.3* 1.4* 1.3* Lab Results Component Value Date/Time CREATININE - [facility] 1.3 (H) 05/29/2024 01:35 PM CREATININE - [facility] 1.4 (H) 05/23/2024 03:34 PM CREATININE - [facility] 1.3 (H) 05/21/2024 12:35 PM CREATININE - [facility] 1.3 (H) 10/13/2020 11:39 AM CREATININE - [facility] 1.3 (H) 08/26/2020 10:53 AM CREATININE - [facility] 1.4 (H) 08/18/2020 03:37 PM CREATININE, 24 HOUR URINE - [facility] 2.117 (H) 08/21/1998 09:05 AM CREATININE, RANDOM URINE - [facility] 19 09/26/2023 02:26 PM CREATININE, RANDOM URINE - [facility] 65 08/23/2022 03:41 PM CREATININE, RANDOM URINE - [facility] 31 05/07/2014 02:45 PM CREATININE-OUTSIDE LAB 1.25 12/19/2017 12:00 AM CREATININE-OUTSIDE LAB 1.30 12/13/2015 12:00 AM CREATININE-OUTSIDE LAB 4.00 (A) 12/10/2015 12:00 AM HYPERTENSION: Patient on ACEi/ARB: yes, Lisinopril 5mg daily BP Readings from Last 3 Encounters: 05/31/24 112/71 05/22/24 98/64 05/08/24 102/68 Blood pressure at goal: yes HYPERLIPIDEMIA: Patient is taking moderate or high intensity statin: yes. Atorvastatin 10mg daily HEALTH MAINTENANCE REVIEW: Health Maintenance Due Topic Date Due Adult Wellness Visit 07/07/2017 Influenza Vaccine (FLU shot) (1) 05/26/2024 COVID-19 Vaccine ( season) 2024 ASSESSMENT & PLAN: ICD-10-CM 1. Type 2 diabetes mellitus with hemoglobin A1c goal of less than 8.0% (HCC) E11.9 BG Readings - Blood sugars controlled. No lows but several readings <100 Medications - Reviewed current regimen, patient is adherent to regimen. PCP/Nephro stopped Metformin yesterday due to low Magnesium Diet, Exercise, Lifestyle - No significant lifestyle changes since last visit. Discussed with patient today. Patient is agreeable to SMBG 2 time(s) daily. Patient aware to contact clinic if any hypoglycemia before next visit. MEDICATION CHANGES: yes, see below; preferred pharmacy: [facility] Diabetic Medications: STOPPED: Metformin ER 500mg 1 tablet twice daily - low Magnesium DECREASE: Lantus 8 units daily HEALTH MAINTENANCE INTERVENTIONS: Labs: Up to Date Immunizations: Up to Date Foot Exam: Up to Date Eye Exam: Up to Date Annual Wellness Visit: needs scheduled I spent a total of 20-29 minutes (exact time 21 mins) on the date of service in preparation, delivery, and documentation of the care provided to Jhon Nelson excluding any time spent in the performance of separately billed services or time spent by another provider/QHP. FOLLOW UP: Return to clinic in 4 weeks Visit date not found Jamal Espinoza RPh, CDE Clinical Pharmacist - Supervisor [employer] Medication Therapy Management [facility] 06/06/2024, 1:30 PM documented in this encounter Plan of Treatment Upcoming Encounters Date Type Department Care Team (Late st Contact Info) Description 06/06/2024 2:20 PM EDT Laboratory [facility] [address] [place] [phone] Liam Rodriguez [address] [place] [address] Type 2 diabetes mellitus with hemoglobin A1c goal of less than 8.0% (HCC); Hypomagnesemia 07/08/2024 2:30 PM EDT Office Visit Pharmacy, [facility] [address] [facility] [place] [address] Pharmacist2, [facility] [address] [place] [address] 07/08/2024 3:00 PM EDT Nurse Only Ancillary [facility] [address] [facility] [place] [address] Nurse, Int Med [address] [facility] [place] [address] 08/28/2024 1:30 PM EST Office Visit G[facility]enterology, [facility] [address] [facility] [address] Rain [facility]in [facility] [address] 09/09/2024 3:00 PM EST Office Visit Nephrology, [facility] [address] [facility] [place] [address] Isa Long MD [address] [place] [address] [place] [address] 11/14/2024 2:00 PM EST Office Visit General Internal Medicine [facility] [address] [facility] [place] [address] Lokesh Amin MD [address] [facility] [place] [address] 11/14/2024 3:45 PM EST Office Visit MOHS Surgery [facility] [address] [place], [place] [address] Becky Gordon MD [address] [facility] [place] [address] 03/18/2025 10:45 AM EDT Office Visit Dermatology [facility] 200 [facility] [place] [address] Lokesh Mayen MD [address] [facility] [place] [address] Scheduled Procedures Name Priority Associated Diagnoses Date/Ti [...] 03/27/2025 03/27/2024, 02/21/2023 CKD HGB USE SMARTSET 98070 04/26/202504/26, 04/26/2024, 04/15/2024, Additional history exists CKD PHOS USE SMARTSET 58904 05/29/2025 09/0 12/2023, 03/27/2024, 09/26/2023, Additional history [...] this encounter Medical Devices Implanted Type Area Mail Messenger Contractor Device Identifier Shelf Expiration Date Model / Serial / Lot Strattice [id number] (400 Units) - [id number] Implanted:Qty : 400 on 10/25/2011 at OR [facility] Abdomen LIFE CELL MISTY 12/23/[id number] / / [id number] Mesh Prolit Hernia [id number] - [id number] Implanted:Qty : 1 on 08/14/2012 at OR [facility] Left: Abdomen [employer] M[employer] 12/24/2015 [id number] / / [id number] Suture Steel 6 B&S19 M654g - [id number] Implanted:Qty : 3 on 07/10/2020 by Ag Ballesteros MD at OR [facility] N/A: Sternum JNJ : [employer] 02/22/2025 M654G / / [id number] Valve Heart Aortic Epic 23mm - [id number] - [id number] Implanted:Qty : 1 on 07/10/2020 by Ag Ballesteros MD at OR [facility] N/A: Aorta ST DOMINIK : CARDIOVASCULAR [id number] 03/22/2024 [id number] / [id number] / [id number] documented as of this encounter Visit Diagnoses Diagnosis Type 2 diabetes mellitus with hemoglobin A1c goal of less than 8.0% (HCC)- Primary Type 2 diabetes mellitus with hemoglobin A1c [...] and were consensually agreed upon. Care Teams Credit Review Manager Relationship Specialty Start Date End Date Lokesh Amin MD [address] [place] [address] PCP - General Internal Medicine 07/22/21 documented as of this encounter
--- OUTSIDE RECORDS SUMMARY | 2024-07-19 11:33 | External Medical Summary ---
Author Name Unknown Address Unknown Organization K01:[facility] - [address] [place] [address] Laboratory Report Ordering Provider Test Date Status ANUJ POST 05/29/2024 13:35:32 Final Observation Date Value Abnormality Reference (Units ) Status Parathyrin.intact [Mass/volume] in Serum or Plasma 05/29/2024 13:35:32 23 15-65 (pg/mL) Final Performing Location [facility] - [address] [place] [address]
--- OUTSIDE RECORDS SUMMARY | 2024-07-19 11:33 | External Medical Summary | Summary of Care ---
Author Name Unknown Organization [facility] Address [address] [place] [address] Phone [phone] Care Team Providers Care Performance Specialist Name Role Phone Lokesh Amin MD Primary Care Provider + Reason for Visit * Reason Comments Outpatient Testing Encounter Details Date Type Department Care Team (Late st Contact Info) Description 05/29/2024 1:40 PM EDT Laboratory Laboratory [facility] [address] [place] [phone] [place] [address] [place] [address] Hypomagnesemia Allergies Active Allergy Reactions Criticality Noted [...] before bedtime. 05/22/2024 Active OneTouch Delica Plus [id number] s:Type 2 diabetes mellitus with hemoglobin A1c [...] mRNA, LNP-s, No Pre serve, 2-Dose Series (Sur[employer]Me) 06/29/2021,12/15/2020,11/24/2020 COVID-19, LNP-s, No Preserve , Deric-sucrose, Ages 12+ ([employer]) 02/04/2022 COVID-19, MRNA-LNP, 23-24, P F, 30 MCG/0.3 mL, 12 YRS AND ABOVE, IM ([employer]Com[facility]) 10/10/2023 Covid-19, Mrna, Lnp-s, Pf, B ivalent, [...] 05/31/2024 2:20 PM EDT Office Visit Nephrology, [facility] [address] [place] [address] Isa Long MD [address] [place] [address] [place] [address] 06/06/2024 1:30 PM EDT [facility] [place] [address] [place] [address] [address] Pharmacist1, [facility] [address] [place] [address] 06/06/2024 2:00 PM EDT Nurse Only Ancillary [facility] [place] [address] [place] [address] [address] Nurse, Int Med [address] [place] [address] 08/28/2024 1:30 PM EST Office Visit Gastroenterology, [facility] [address] [facility] [place] [address] Rain Medellin MICA [address] [place] [address] 11/14/2024 2:00 PM EST Office Visit General Internal Medicine [facility] [address] [place] [address] Lokesh Amin MD 200 [facility] [place] [address] 11/14/2024 3:45 PM EST Office Visit MOHS Surgery [facility] [address] [place] [address] Becky Gordon MD 200 [place] [address] 03/18/2025 10:45 AM EDT Office Visit Dermatology [facility] 200 [facility] [place], [place] [address] Lokesh Mayen MD [address] [facility] [place], [place] [address] Pending Results Name Type Priority Associated Diagnoses Date /Time MAGNESIUM Lab Routine Hypomagnesemia 05/29/2024 1:35 PM EDT BASIC METABOLIC PANEL Lab Routine Hypomagnesemia 05/29/2024 1:35 PM EDT Scheduled Procedures Name [...] 07/0 11/2023, 09/26/2023, Additional history exists GFR 11/22/2024 05/23/2024, 08/2 03/2024, 05/13/2024, Additional history exists CKD PHOS USE SMARTSET 68657 03/27/2025 07/0 11/2023, 09/26/2023, 08/23/2022, Additional history exists Depression Screening 03/27/2025 03/27/2024 Diabetic Foot Exam 03/27/2025 03/27/2024, 02/21/2023 CKD HGB USE SMARTSET 01157 04/26/202504/26, 04/26/2024, 04/15/2024, Additional history exists DTap/Tdap [...] this encounter Medical Devices Implanted Type Area Vice Chairman Device Identifier Shelf Expiration Date Model / Serial / Lot Strattice [id number] (400 Units) - [id number] Implanted:Qty : 400 on 10/25/2011 at [place] [facility] Abdomen LIFE CELL MISTY 12/23/2012 [id number] / / [id number] Mesh Prolit Hernia [id number] - [id number] Implanted:Qty : 1 on 08/14/2012 at [facility] Left: Abdomen [employer] 12/24/2015 [id number] / / [id number] Suture Steel 6 B&S19 M654g - [id number] Implanted:Qty : 3 on 07/10/2020 by Ag Ballesteros MD at OR [facility] N/A: Sternum JNLos : [employer] 02/22/2025 M654G / / [id number] Valve Heart Aortic Epic 23mm - [id number] - [id number] Implanted:Qty : 1 on 07/10/2020 by Ag Ballesteros MD at OR [facility] N/A: Aorta ST DOMINIK : CARDIOVASCULAR [id number] 03/22/2024 [id number] 00 / [id number] / [id number] documented as of this encounter Visit Diagnoses Diagnosis Hypomagnesemia Disorders of magnesium metabolism documented in [...] and were consensually agreed upon. Care Teams Performance Specialist Relationship Specialty Start Date End Date Lokesh Amin MD 200 [facility] [place] [address] PCP - General Internal Medicine 07/22/21 documented as of this encounter
--- OUTSIDE RECORDS SUMMARY | 2024-07-19 11:33 | External Medical Summary | Summary of Care ---
Author Name Unknown Organization [facility] Address [address] [place] [address] Phone [phone] Care Team Providers Care Accounts Payable Technician Name Role Phone Lokesh Amin MD Primary Care Provider + Reason for Visit * Reason Comments eRx-Medication Refill Encounter Details Date Type Department Care Team (Late st Contact Info) Description 05/25/2024 Refill General Internal Medicine [facility] 200 [place] [address] Lokesh Amin MD [address] [place] [address] Persistent atrial fibrillation (HCC) Allergies Active Allergy Reactions Criticality Noted Date Comments Demerol Neuro complications (Please comment) High 06/14/2010 confusion Adhesive Tape Rash Low 06/14/2010 documented as of this encounter (statuses as of 05/28/2024) Medications Medication Sig Dispensed Refills Start Date [...] goal of less than 8.0% ([facility]) Use up to check sugar first thing in am and 2 hours after meals 1 Kit 04/04/2024 Active Insulin Glargine Solostar 100 UNIT/ML Subcutaneous Solution Pen-injector (Lantus SoloStar)Indicati ons:Type 2 diabetes mellitus with hemoglobin A1c goal of less than 8.0% ([facility]) Inject 10 Units under the skin daily. Titrating dose - max dose 30 units daily. DX: E11.9 5 Each 3 04/04/2024 Active Insulin Pen Needle 32G X 6 MMIndications:Typ [...] before bedtime. 05/22/2024 Active OneTouch Delica Plus [id number] ons:Type 2 diabetes mellitus with hemoglobin A1c goal of less than 8.0% (HCC) USE UP TO CHECK SUGAR FIRST THING IN AM AND 2 HOURS AFTER MEALS 100 Each 1 05/25/2024 Active Eliquis 5 MG Oral Tablet (Apixaban)Indicat ions:Persistent atrial fibrillation (HCC) TAKE 1 TABLET BY MOUTH TWICE A DAY 180 Tablet 1 05/28/2024 Active Eliquis 5 MG Oral Tablet (Apixaban)Indicat ions:Persistent atrial fibrillation (HCC) TAKE 1 TABLET BY MOUTH TWICE A DAY 180 Tablet 1 10/27/2023 05/28/20 24 Discontinued Hospital, Clinic, or Other Facility Administered Medication Ordered Dose Route Frequency Start Date End Date Status Testosterone Cypionate (Depotestosterone Cypionate) 200 MG/ML inj 100 mgIndications:Hypogonadism, male 100 mg IM QMONTH 01/11/2021 Active documented as of this encounter (statuses as of 05/28/2024) Active Problems Problem Noted Date Diagnosed Date [...] as of this encounter (statuses as of 05/28/2024) Resolved Problems Problem Noted Date Diagnosed Date [...] as of this encounter (statuses as of 05/28/2024) Immunizations Name Administration Dates Next Due COVID-19 mRNA, LNP-s, No Pre serve, 2-Dose Series ([employer]) 06/29/2021,12/15/2020,11/24/2020 COVID-19, LNP-s, No Preserve , Deric-sucrose, Ages 12+ ([employer]Pass) 02/04/2022 COVID-19, MRNA-LNP, 23-24, P F, 30 MCG/0.3 mL, 12 YRS AND ABOVE, IM ([employer]Comir[employer]) 10/10/2023 Covid-19, Mrna, Lnp-s, Pf, B ivalent, [...] encounter Miscellaneous Notes * Telephone Encounter - Patricia Bartlett RPh - 05/28/2024 11:26 AM EDTSigned Prescriptions: Disp Refills Eliquis 5 MG Oral Tablet (Apixaban) 180 Ta*1 Sig: TAKE 1 TABLETBY MOUTH TWICE A DAYAuthorizing Provider: LOKESH AMIN User: PATRICIA BARTLETT---- documented in this encounter Plan of Treatment Upcoming Encounters Date Type Department Care Team (Late st Contact Info) Description 05/28/2024 1:40 PM EDT Office Visit Podiatry [facility] [address] [place] [address] Luly Lance DPM [address] [place] [address] 05/31/2024 2:20 PM EDT Office Visit Nephrology, [facility] 200 [facility] [place] [address] Isa Long MD [address] [place], [place] [address] [address] 06/06/2024 1:30 PM EDT Office Visit Pharmacy, [facility] [address] [facility] [place] [address] Pharmacist1, [facility] [address] [place] [address] 06/06/2024 2:00 PM EDT Nurse Only Ancillary [facility] 200 [facility] [place] [address] Nurse, Int Med [address] [facility] [place] [address] 08/28/2024 1:30 PM EST Office Visit Gastroenterology, [facility] [address] [place] [address] Rain Medellin CRNP [address] [place] [address] 11/14/2024 2:00 PM EST Office Visit General Internal Medicine [facility] [address] [place] [address] Lokesh Amin MD [address] [place] [address] 11/14/2024 3:45 PM EST Office Visit MOHS Surgery [facility] [address] [place], [place] [address] Becky Gordon MD [address] [place] [address] 03/18/2025 10:45 AM EDT Office Visit Dermatology [facility] [place] [address] [place] [address] Lokesh Mayen MD [address] [place] [address] Scheduled Procedures Name Priority Associated Diagnoses Date/Ti [...] 04/15/2024, 0711/2023, 09/26/2023, Additional history exists GFR 11/22/2024 05/23/2024, 04/26, 05/13/2024, Additional history exists CKD PHOS USE SMARTSET 74619 03/27/2025 07/0 11/2023, 09/26/2023, 08/23/2022, Additional history exists Depression Screening 03/27/2025 03/27/2024 Diabetic Foot Exam 03/27/2025 03/27/2024, 02/21/2023 CKD HGB USE SMARTSET 37457 04/26/202504/26, 04/26/2024, 04/15/2024, Additional history exists DTap/Tdap [...] this encounter Medical Devices Implanted Type Area Tie Inspector Device Identifier Shelf Expiration Date Model / Serial / Lot Strattice [id number] (400 Units) - [id number] Implanted:Qty : 400 on 10/25/2011 at [place] [facility] Abdomen LIFE CELL MISTY 12/23/2012 [id number] / / [id number] Mesh Prolit Hernia [id number] - [id number] Implanted:Qty : 1 on 08/14/2012 at [place] [facility] Left: Abdomen [employer] M[employer] 12/24/2015 [id number] / / [id number] Suture Steel 6 B&S19 M654g - [id number] Implanted:Qty : 3 on 07/10/2020 by Ag Ballesteros MD at [place] [facility] N/A: Sternum JNJ : [employer] 02/22/2025 M654G / / [id number] Valve Heart Aortic Epic 23mm - [id number] - [id number] Implanted:Qty : 1 on 07/10/2020 by Ag Ballesteros MD at [place] [facility] N/A: Aorta ST DOMINIK : CARDIOVASCULAR [id number] 03/22/2024 [id number] 00 / [id number] / [id number] documented as of this encounter Visit Diagnoses Diagnosis Persistent atrial fibrillation (HCC) Atrial fibrillation documented in this encounter Advance Directives * [...] and were consensually agreed upon. Care Teams Accounts Payable Technician Relationship Specialty Start Date End Date Lokesh Amin MD 200 [place] [address] PCP - General Internal Medicine 07/22/21 documented as of this encounter
--- OUTSIDE RECORDS SUMMARY | 2024-07-19 11:33 | External Medical Summary ---
Author Name Unknown Address Unknown Organization K09:[facility] [place] [address] Laboratory Report Ordering Provider Test Date Status COREY JARAMILLO 05/29/2024 13:35:32 Final Observation Date Value Abnormality Reference (Units ) Status Magnesium 05/29/2024 13:35:32 1.6 1.5-2.6 (m g/dL) Final Performing Location [facility] [place] [address]
--- OUTSIDE RECORDS SUMMARY | 2024-07-19 11:33 | External Medical Summary | Summary of Care ---
Author Name Unknown Organization [facility] Address [address] [place] [address] Phone [phone] Care Team Providers Care Dumper [employer] Name Role Phone Lokesh Amin MD Primary Care Provider + Reason for Visit * Reason Onset Date Comments Test Results Lab 05/28/2024 Encounter Details Date Type Department Care Team (Late st Contact Info) Description 05/28/2024 Telephone General Internal Medicine [facility] [address] Lokesh Amin MD 200 [place] [address] Test Results Lab Allergies Active Allergy Reactions Criticality Noted Date [...] mg by mouth in the morning. Active Eliquis 5 MG Oral Tablet (Apixaban)Indicatio ns:Persistent atrial fibrillation (HCC) TAKE 1 TABLET BY MOUTH TWICE A DAY 180 Tablet 1 10/27/2023 Active Spironolactone 25 MG Oral Tablet (Aldactone)Indicati [...] 50+Men Oral Tablet Take by mouth. Ac tijose OneTouch Verio w/Device KitIndications:Type 2 diabetes mellitus [...] less than 8.0% ([facility]) Take 2 Tablets by mouth 2 times [...] less than 8.0% ([facility]) USE UP TO CHECK SUGARS FIRST THING IN AM AND 2 HOURS AFTER MEALS 100 Strip 1 05/22/2024 Active Slow Magnesium/Calcium 64-106 MG Oral Tablet Delayed Release (magnesium chloride)Indication s:Hypomagnesemia Take 2 Tablets by mouth in the morning and 2 Tablets before bedtime. 05/22/2024 Active OneTouch Delica Plus [id number] s:Type 2 diabetes mellitus with hemoglobin A1c goal of less than 8.0% ([facility]) USE UP TO CHECK SUGAR FIRST THING IN AM AND 2 HOURS AFTER MEALS 100 Each 1 05/25/2024 Active Hospital, Clinic, or Other Facility Administered [...] mRNA, LNP-s, No Pre serve, 2-Dose Series (Versium) 06/29/2021,12/15/2020,11/24/2020 COVID-19, LNP-s, No Preserve , Deric-sucrose, Ages 12+ (Pfizer) 02/04/2022 COVID-19, MRNA-LNP, 23-24, P F, 30 MCG/0.3 mL, 12 YRS AND ABOVE, IM (cPacket Networks-Comirnat) 10/10/2023 Covid-19, Mrna, Lnp-s, Pf, B ivalent, [...] encounter Miscellaneous Notes * Telephone Encounter - Carina Estrada MED ASSIST - 05/28/2024 8:34 AM EDT Patient aware and receptive to instructions. * Telephone Encounter - Carina Estrada MED ASSIST - 05/28/2024 8:32 AM EDT ----- Message from Lokesh Amin MD sent at 05/24/2024 1:36 PM EDT ----- Magnesium normalized, recheck -Mon next week Gfr down minimally will recheck next week as well to follow documented in this encounter Plan of Treatment Upcoming Encounters Date Type Department Care Team (Late st Contact Info) Description 05/28/2024 1:40 PM EDT Office Visit Podiatry [facility] [address] [place] [address] Luly Lance DPM 132 [facility] [address] 05/31/2024 2:20 PM EDT Office Visit Nephrology, [facility] 200 [facility] [place] [address] Isa Long MD 400 [facility] [place] [address] 06/06/2024 1:30 PM EDT Office Visit Pharmacy, [facility] 200 [facility] [place] [address] Pharmacist1, [facility] [address] [place] [address] 06/06/2024 2:00 PM EDT Nurse Only Ancillary [facility] 200 [facility] [place] [address] Nurse, Int Med 200 [address] [facility] [place] [address] 08/28/2024 1:30 PM EST Office Visit Gastroenterology, [facility] [address] Rain [facility]in CRNP [facility] [address] 11/14/2024 2:00 PM EST Office Visit General Internal Medicine [facility] 200 [facility] [place] [address] Lokesh Amin MD 200 [facility] [place] [address] 11/14/2024 3:45 PM EST Office Visit MOHS Surgery [facility] [address] [place], [place] [address] Becky Gordon MD 200 [facility] [place] [address] 03/18/2025 10:45 AM EDT Office Visit Dermatology [facility] [place] 200 [facility] [place] [address] Lokesh Mayen MD 200 [facility] [place] [address] Scheduled Procedures Name Priority Associated Diagnoses Date/Ti [...] Additional history exists CKD PHOS USE SMARTSET 23383 03/27/2025 07/0 11/2023, 09/26/2023, 08/23/2022, Additional history exists Depression Screening 03/27/2025 03/27/2024 Diabetic Foot Exam 03/27/2025 03/27/2024, 02/21/2023 CKD HGB USE SMARTSET 99463 04/26/202504/26, 04/26/2024, 04/15/2024, Additional history exists DTap/Tdap [...] encounter Medical Devices Implanted Type Area Director Of First Impressions Device Identifier Shelf Expiration Date Model / Serial / Lot Strattice [id number] (400 Units) - [id number] Implanted:Qty : 400 on 10/25/2011 at [place] [facility] [place] Abdomen LIFE CELL MISTY 12/23/2012 [id number] / / [id number] Mesh Prolit Hernia [id number] - [id number] Implanted:Qty : 1 on 08/14/2012 at [place] [facility] Left: Abdomen [employer] M[employer] 12/24/2015 [id number] / / [id number] Suture Steel 6 B&S19 M654g - [id number] Implanted:Qty : 3 on 07/10/2020 by Ag Ballesteros MD at [place] [facility] N/A: Sternum JNJ : [employer] 02/22/2025 M654G / / [id number] Valve Heart Aortic Epic 23mm - [id number] - [id number] Implanted:Qty : 1 on 07/10/2020 by Ag Ballesteros MD at [place] [facility] [place] N/A: Aorta ST DOMINIK : CARDIOVASCULAR [id number] 03/22/2024 [id number] 00 / [id number] / [id number] documented as of this encounter Advance Directives [...] and were consensually agreed upon. Care Teams [employer] Relationship Specialty Start Date End Date Lokesh Amin MD 200 [facility] [place] [address] PCP - General Internal Medicine 07/22/21 documented as of this encounter
--- OUTSIDE RECORDS SUMMARY | 2024-07-19 11:34 | External Medical Summary ---
Author Name Unknown Address Unknown Organization K01:[facility] [address] [place] [address] Laboratory Report Ordering Provider Test Date Status COREY JARAMILLO 05/23/2024 15:34:51 Final Observation Date Value Abnormality Reference (Units ) Status Magnesium 05/23/2024 15:34:51 2.2 1.5-2.6 (m g/dL) Final Performing Location [facility] - [address] [place] [address]
--- OUTSIDE RECORDS SUMMARY | 2024-07-19 11:34 | External Medical Summary | Summary of Care ---
Author Name Unknown Organization [facility] Address [address] [place] [address] Phone [phone] Care Team Providers Care Open [employer] Name Role Phone Lokesh Amin MD Primary Care Provider + Reason for Visit * Reason Comments Outpatient Testing Encounter Details Date Type Department Care Team (Late st Contact Info) Description 05/23/2024 4:00 PM EDT Laboratory Laboratory, [facility] [address] [place] [address] [facility] [address] [place] [address] Hypomagnesemia Allergies Active Allergy Reactions Criticality Noted Date Comments Demerol Neuro complications (Please comment) High 06/14/2010 confusion Adhesive Tape Rash Low 06/14/2010 documented as of this encounter (statuses as of 05/23/2024) Medications Medication Sig Dispensed Refills Start Date [...] hours after meals 1 Kit 04/04/2024 Active OneTouch UltraSoft LancetsIndications: Type 2 diabetes mellitus with hemoglobin A1c goal of less than 8.0% ([facility]) Use up to check sugar first thing in am and 2 hours after meals 100 Each 1 04/04/2024 Active Insulin Glargine Solostar 100 UNIT/ML Subcutaneous Solution Pen-injector (Lantus SoloStar)Indication s:Type 2 diabetes mellitus with hemoglobin A1c goal of less than 8.0% ([facility]) Inject 10 Units under the skin daily. Titrating dose - max dose 30 units daily. DX: E11.9 5 Each 3 04/04/2024 Active Insulin Pen Needle 32G X 6 MMIndications:Type 2 diabetes mellitus with hemoglobin A1c goal of less than 8.0% ([facility]) Use to inject insulin once daily. 100 Each 3 04/04/2024 Active metFORMIN HCl ER 500 MG Oral Tablet Extended Release 24 Hour (Glucophage XR)Indications:Type 2 diabetes mellitus with hemoglobin A1c goal of less than 8.0% ([facility]) Take 2 Tablets by mouth 2 times [...] hemoglobin A1c goal of less than 8.0% ([facility]) USE UP TO CHECK SUGARS FIRST THING IN AM AND 2 HOURS AFTER MEALS 100 Strip 1 05/22/2024 Active Slow Magnesium/Calcium 64-106 MG Oral Tablet Delayed Release (magnesium chloride)Indication s:Hypomagnesemia Take 2 Tablets by mouth in the morning and 2 Tablets before bedtime. 05/22/2024 Active Hospital, Clinic, or Other Facility Administered Medication Ordered Dose Route Frequency Start Date End Date Status Testosterone Cypionate (Depotestosterone Cypionate) 200 MG/ML inj 100 mgIndications:Hypogonadism, male 100 mg IM QMONTH 01/11/2021 Active documented as of this encounter (statuses as of 05/23/2024) Active Problems Problem Noted Date Diagnosed Date Hypomagnesemia 05/22/2024 Basal cell carcinoma (BCC) o f skin of left ear and external auditory canal 03/27/2024 Chronic diastolic congestive heart failure 06/28 /2023 Type 2 diabetes mellitus wit h hemoglobin [...] as of this encounter (statuses as of 05/23/2024) Resolved Problems Problem Noted Date Diagnosed Date [...] as of this encounter (statuses as of 05/23/2024) Immunizations Name Administration Dates Next Due COVID-19 mRNA, LNP-s, No Pre serve, 2-Dose Series (Qurater) 06/29/2021,12/15/2020,11/24/2020 COVID-19, LNP-s, No Preserve , Deric-sucrose, Ages 12+ (Pfizer) 02/04/2022 COVID-19, MRNA-LNP, 23-24, P F, 30 MCG/0.3 mL, 12 YRS AND ABOVE, IM (Bnooki-Comirnat) 10/10/2023 Covid-19, Mrna, Lnp-s, Pf, B ivalent, [...] 05/28/2024 1:40 PM EDT Office Visit Podiatry [facility] [address] [place] [address] Luly Lance DPM 132 [place] [address] 05/31/2024 2:20 PM EDT Office Visit Nephrology, [facility] [address] [place] [address] Isa Long MD [address] [place] [address] [place] [address] 06/06/2024 1:30 PM EDT Office Visit Pharmacy, [facility] [place] [address] [place] [address] [address] Pharmacist1, [facility] [address] [place] [address] 06/06/2024 2:00 PM EDT Nurse Only Ancillary [facility] [place] [address] [place] [address] Nurse, Int Med 200 [facility] [place] [address] 08/28/2024 1:30 PM EST Office Visit Gastroenterology, [facility] [address] [facility] [place] [address] Rain Medellin CRNP [address] [place], [place] [address] 10/14/2024 3:00 PM EST Office Visit Cardiology, [facility] [address] [facility] [place], [place] [address] Fabian Mejia PA-C [address] [place] [address] 11/14/2024 2:00 PM EST Office Visit General Internal Medicine [facility] 200 [facility] [place] [address] Lokesh Amin MD 200 [facility] [place] [address] 11/14/2024 3:45 PM EST Office Visit MOHS Surgery [facility] [address] [place], [place] [address] Becky Gordon MD [address] [place] [address] [place] [address] 03/18/2025 10:45 AM EDT Office Visit Dermatology [facility] 200 [facility] [place] [address] Lokesh Mayen MD [address] [place] [address] [place] [address] Pending Results Name Type Priority Associated Diagnoses Date /Time BASIC METABOLIC PANEL Lab Routine Hypomagnesemia 05/23/2024 3:34 PM EDT MAGNESIUM Lab Routine Hypomagnesemia 05/23/2024 3:34 PM EDT Scheduled Procedures Name Priority Associated Diagnoses Date/Ti me COLONOSCOPY FLEXIBLE PROXIMAL DIAGNOSTIC Recall Colon cancer screening Health Maintenance Due Date Last Done Comments Adult Wellness Visit 07/07/2017 07/07/2016 COVID-19 Vaccine ( season) 2023 10/10/2023, 03/02/2023, 02/04/2022, Additional history exists Influenza Vaccine (FLU shot) (#1) 2024 06/26/2023, 06/09/2022, 06/17/2021, Additional history exists Diabetic Eye Exam 08/01/2024 08/01/2023, , 07/25/2005 Albumin/Creatinine Ratio 09/26/2024 09/26/2023, 07/27 HbA1c 10/16/2024 04/15/2024, 0711/2023, 09/26/2023, Additional history exists GFR 11/21/2024 05/21/2024, 04/25, 05/06/2024, Additional history exists CKD PHOS USE SMARTSET 64630 03/27/2025 07/0 11/2023, 09/26/2023, 08/23/2022, Additional history exists Depression Screening 03/27/2025 03/27/2024 Diabetic Foot Exam 03/27/2025 03/27/2024, 02/21/2023 CKD HGB USE SMARTSET 02147 04/26/202504/26, 04/26/2024, 04/15/2024, Additional history exists DTap/Tdap [...] this encounter Medical Devices Implanted Type Area Services Delivery Driver Device Identifier Shelf Expiration Date Model / Serial / Lot Omegattmagnolia [id number] (400 Units) - [id number] Implanted:Qty : 400 on 10/25/[address] [facility] [place] Abdomen LIFE CELL MISTY 12/23/[id number] / / [id number] Mesh Prolit Hernia [id number] - [id number] Implanted:Qty : 1 on 08/14/[address] [facility] [place] Left: Abdomen [employer] M[employer] 12/24/2015 [id number] / / [id number] Suture Steel 6 B&S19 M654g - [id number] Implanted:Qty : 3 on 07/10/2020 by Ag Ballesteros MD at OR [facility] [place] N/A: Sternum JNJ : [employer] 02/22/2025 M654G / / [id number] Valve Heart Aortic Epic 23mm - [id number] - [id number] Implanted:Qty : 1 on 07/10/2020 by Ag Ballesteros MD at OR [facility] [place] N/A: Aorta ST DOMINIK : CARDIOVASCULAR [id number] 03/22/2024 [id number] 00 / [id number] / [id number] documented as of this encounter Visit Diagnoses [...] patient have Health Care Power of Attor sahwn? No * Full Code Date Activated Date Inactivated Comments 10/25/2011 5:53 PM 10/27/2011 10:01 PM This order r eflects the patients wishes and were consensually agreed upon. Care Teams Open [employer]earth [employer] Relationship Specialty Start Date End Date Lokesh Amin MD 200 [place] [address] PCP - General Internal Medicine 07/22/21 documented as of this encounter
--- OUTSIDE RECORDS SUMMARY | 2024-07-19 11:34 | External Medical Summary | Summary of Care ---
Author Name Unknown Organization [facility] Address [address] [place] [address] Phone [phone] Care Team Providers Care Binman Name Role Phone Lokesh Amin MD Primary Care Provider + Reason for Visit * Reason Onset Date Comments Medication Management 05/22/2024 Magnesium Encounter Details Date Type Department Care Team (Late st Contact Info) Description 05/22/2024 Telephone Hematology/Oncology Treatment, [place] [address] [place] [address] Lokesh Amin MD 200 [facility] [place] [address] Medication Management (Magnesium) Allergies Active Allergy Reactions Criticality Noted Date Comments Demerol Neuro complications (Please comment) High 06/14/2010 confusion Adhesive Tape Rash Low 06/14/2010 documented as of this encounter (statuses as of 05/22/2024) Medications Medication Sig Dispensed Refills Start Date [...] than 8.0% ([facility]) Inject 10 Units under the skin daily. Titrating dose - max dose 30 units daily. DX: E11.9 5 Each 3 04/04/2024 Active Insulin Pen Needle 32G X 6 MMIndications:Type 2 diabetes mellitus with hemoglobin A1c goal of less than 8.0% ([facility]) Use to inject insulin once daily. 100 Each 3 04/04/2024 Active metFORMIN HCl ER 500 MG Oral Tablet Extended Release 24 Hour (Glucophage XR)Indications:Type 2 diabetes mellitus with hemoglobin A1c goal of less than 8.0% ([facility]) Take 2 Tablets by mouth 2 times [...] than 8.0% ([facility]) USE UP TO CHECK SUGARS FIRST THING [...] as of this encounter (statuses as of 05/22/2024) Active Problems Problem Noted Date Diagnosed Date [...] as of this encounter (statuses as of 05/22/2024) Resolved Problems Problem Noted Date Diagnosed Date [...] as of this encounter (statuses as of 05/22/2024) Immunizations Name Administration Dates Next Due COVID-19 mRNA, LNP-s, No Pre serve, 2-Dose Series ([place]) 06/29/2021,12/15/2020,11/24/2020 COVID-19, LNP-s, No Preserve , Deric-sucrose, Ages 12+ (Pfizer) 02/04/2022 COVID-19, MRNA-LNP, 23-24, P F, 30 MCG/0.3 mL, 12 YRS AND ABOVE, IM (Moe Delo-Comirnaty) 10/10/2023 Covid-19, Mrna, Lnp-s, Pf, B ivalent, 30 Mcg, IM, 12 yrs and above (Pfizer) 03/02/2023 Hepatitis B, 20+ yrs 04/01/2024,2023,09/29 Pneumococcal Conjugate Vacc, 13 Valent (Prevnar) 02/08/2016 Pneumococcal Polysaccharide PPV23 (Pneumovax) 02/08/2012,08/18/2004 RSV Vac., Bivalent, Perfusio n F, Pf,0.5 Ml (Abrysvo) 10/06/2023 Season Influenza, Quad, PF, Adjuvanted, 65+ Yrs, IM (FLUAD) 06/10/2020 Seasonal Influenza, PF, 6 M & above, IM , (FluLaval or Fluzone) 06/28/2018,06/29/2017 Seasonal Influenza, Quadriva lent Hd (Fluzone Hd) 06/26/2023,06/09/2022,06/17/2021 Seasonal Influenza, Quadriva lent, No Preserve, IM 06/20/2016 Seasonal Influenza, Split, I IV3, With Preserve, Inj 06/11/2015,06/27/2014,06/03/2013,06/13,05/27/2011,06/14/2010,07/29/2008 ,08/01/2007,08/02/2006,07/28/2005 Seasonal Influenza, Trivalen t, Adjuvanted, 65+ yrs 05/31/2019 TD, Preservative Free 09/07/2019 TDAP, Age [...] encounter Miscellaneous Notes * Telephone Encounter - Mimi Bullock LPN - 05/22/2024 4:04 PM EDT Christa from [facility] is calling. States that they can run 1 gram/hour. No order found in pt's chart and this is needed prior to pt's appt tomorrow. Called PCP office, spoke with Nancy and [facility] Christa aware. * Telephone Encounter - Lokesh Amin MD - 05/22/2024 3:21 PM EDT Ordered, can you make sure the [facility] is ok running 3 grams over 3 hours of magnesium sulfate - thanks(1 gram/hour) * Telephone Encounter - Carina Estrada, MED ASSIST - 05/22/2024 2:58 PM EDT Spoke with Christa at [facility]. They will see him tomorrow at 10 to start the infusion. Patient to arrive at 9:45 am at the back of the hospital in the cancer pavilion parking lot, then proceed through the double doors and go straight down that hallway to registration. Asking that order, patient demographic and insurance information to be faxed to [phone]. Patient aware and agreeable. Please provide order so I can fax to [facility]. Thanks! * Telephone Encounter - Lokesh Amin MD - 05/22/2024 2:00 PM EDT Can we call [facility] to see if they can infuse 3 grams magnesium for patient today or tomorrow? He didn't want to go to ER * Telephone Encounter - Hope Zaragoza LPN - 05/22/2024 1:[address] Amin After speaking with [employer], Becky Romero RN: Due to no chair availability for today, tomorrow, or Monday. She is recommending patient either be advised to go the ER for magnesium infusion or given oral magnesium. We can look at scheduling patient for next week. * Telephone Encounter - Hope Zaragoza LPN - 05/22/2024 1:20 PM EDT Called to inform patient his infusion time will be 3 hours, not for 60 minutes, apologized to patient for any inconvenience. Patient agreeable to being rescheduled to a different time. Will call patient when his appointment has been made, he states understanding. * Telephone Encounter - Hope Zaragoza LPN - 05/22/2024 1:13 PM EDT Order received for Magnesium [place] plan built and routed to provider No prior authorization required [place] plan signed documented in this encounter Plan of Treatment Upcoming Encounters Date Type Department Care Team (Late st Contact Info) Description 05/28/2024 1:40 PM EDT Office Visit Podiatry [facility] [address] [place] [address] Luly Lance DPM [address] [place] [address] 05/31/2024 2:20 PM EDT Office Visit Nephrology, [facility] 200 [facility] [place] [address] Isa Long MD [address] [place] [address] [place] [address] 06/06/2024 1:30 PM EDT Office Visit Pharmacy, [facility] [place] 200 [facility] [place] [address] Pharmacist1, [facility] 200 [facility] [place] [address] 06/06/2024 2:00 PM EDT Nurse Only Ancillary [facility] [place] 200 [facility] [place] [address] Nurse, Int Med 200 [facility] [place] [place] [address] 08/28/2024 1:30 PM EST Office Visit Gastroenterology, [facility] [address] [place] [address] Rain Medellin CRNP [address] [place] [address] 10/14/2024 3:00 PM EST Office Visit Cardiology, [facility] [address] [place] [address] Fabian Mejia PA-C [address] [place] [address] 11/14/2024 2:00 PM EST Office Visit General Internal Medicine [facility] [address] [place] [address] Lokesh Amin MD 200 [facility] [place] [address] 11/14/2024 3:45 PM EST Office Visit MOHS Surgery [facility] 200 [place] [address] Becky Gordon MD 200 [place] [address] 03/18/2025 10:45 AM EDT Office Visit Dermatology [facility] 200 [place] [address] Lokesh Mayen MD 200 [place] [address] Scheduled Procedures Name Priority Associated Diagnoses Date/Ti [...] 07/0 11/2023, 09/26/2023, Additional history exists GFR 11/21/2024 05/21/2024, 0805/2024, 05/06/2024, Additional history exists CKD PHOS USE SMARTSET 84307 03/27/2025 07/0 11/2023, 09/26/2023, 08/23/2022, Additional history exists Depression Screening 03/27/2025 03/27/2024 Diabetic Foot Exam 03/27/2025 03/27/2024, 02/21/2023 CKD HGB USE SMARTSET 23121 04/26/202504/26, 04/26/2024, 04/15/2024, Additional history exists DTap/Tdap [...] this encounter Medical Devices Implanted Type Area Satellite Project Site Monitor Device Identifier Shelf Expiration Date Model / Serial / Lot Strattice [id number] (400 Units) - [id number] Implanted:Qty : 400 on 10/25/2011 [place] [facility] [place] Abdomen LIFE CELL MISTY 12/23/2012 [id number] / / [id number] Mesh Prolit Hernia [id number] - [id number] Implanted:Qty : 1 on 08/14/2012 at [place] [facility] [place] Left: Abdomen [employer] 12/24/2015 [id number] / / [id number] Suture Steel 6 B&S19 M654g - [id number] Implanted:Qty : 3 on 07/10/2020 by Ag Ballesteros MD at [place] [facility] [place] N/A: Sternum JNJ : [employer] 02/22/2025 M654G / / [id number] Valve Heart Aortic Epic 23mm - [id number] - [id number] Implanted:Qty : 1 on 07/10/2020 by Ag Ballesteros MD at [place] [facility] N/A: Aorta ST DOMINIK : CARDIOVASCULAR [id number] 03/22/2024 [id number]- 00 / [id number] / [id number] documented as of this encounter Advance Directives [...] and were consensually agreed upon. Care Teams Binman Relationship Specialty Start Date End Date Lokesh Amin MD 200 [facility] [place] [facility] [address] PCP - General Internal Medicine 07/22/21 documented as of this encounter
--- OUTSIDE RECORDS SUMMARY | 2024-07-19 11:34 | External Medical Summary | Summary of Care ---
Author Name Unknown Organization [facility] Address [address] [place] [address] Phone [phone] Care Team Providers Care Accounts Executive Name Role Phone Lokesh Nicole MD Primary Care Provider + Reason for Visit * Reason Comments eRx-Medication Refill Encounter Details Date Type Department Care Team (Late st Contact Info) Description 05/24/20[address] General Internal Medicine [facility] [address] [place] [address] Lokesh Nicole MD [address] [place] [address] Type 2 diabetes mellitus with hemoglobin A1c goal of less than 8.0% ([facility]) Allergies Active Allergy Reactions Criticality Noted Date Comments Demerol Neuro complications (Please comment) High 06/14/2010 confusion Adhesive Tape Rash Low 06/14/2010 documented as of this encounter (statuses as of 05/25/2024) Medications Medication Sig Dispensed Refills Start Date [...] morning. Active Eliquis 5 MG Oral Tablet (Apixaban)Indicat ions:Persistent atrial fibrillation (HCC) TAKE 1 TABLET BY MOUTH TWICE A DAY 180 Tablet 1 10/27/2023 Active Spironolactone 25 MG Oral Tablet (Aldactone)Indica [...] goal of less than 8.0% ([facility]) Use up to check sugar first thing [...] before bedtime. 05/22/2024 Active OneTouch Delica Plus [id number] ons:Type 2 diabetes mellitus with hemoglobin A1c goal of less than 8.0% (HCC) USE UP TO CHECK SUGAR FIRST THING IN AM AND 2 HOURS AFTER MEALS 100 Each 1 05/25/2024 Active OneTouch UltraSoft LancetsIndication s:Type 2 diabetes mellitus with hemoglobin A1c goal of less than 8.0% ([facility]) Use up to check sugar first thing in am and 2 hours after meals 100 Each 04/04/2024 05/25/20 24 Discontinued Hospital, Clinic, or Other Facility Administered Medication Ordered Dose Route Frequency Start Date End Date Status Testosterone Cypionate (Depotestosterone Cypionate) 200 MG/ML inj 100 mgIndications:Hypogonadism, male 100 mg IM QMONTH 01/11/2021 Active documented as of this encounter (statuses as of 05/25/2024) Active Problems Problem Noted Date Diagnosed Date [...] as of this encounter (statuses as of 05/25/2024) Resolved Problems Problem Noted Date Diagnosed Date [...] as of this encounter (statuses as of 05/25/2024) Immunizations Name Administration Dates Next Due COVID-19 mRNA, LNP-s, No Pre serve, 2-Dose Series (emoteShare) 06/29/2021,12/15/2020,11/24/2020 COVID-19, LNP-s, No Preserve , Deric-sucrose, Ages 12+ (Pfizer) 02/04/2022 COVID-19, MRNA-LNP, 23-24, P F, 30 MCG/0.3 mL, 12 YRS AND ABOVE, IM [facility] 10/10/2023 Covid-19, Mrna, Lnp-s, Pf, B ivalent, [...] encounter Miscellaneous Notes * Telephone Encounter - Tara Davila RPh - 05/25/2024 1:33 PM EDTSigned Prescriptions: Disp Refills OneTouch Delica Plus [id number] 100 Ea*1 Sig: USE UP TO CHECK SUGAR FIRST THING IN AM AND 2 HOURS AFTER MEALSAuthorizing Provider: LOKESH NICOLE User: TARA DAVILA documented in this encounter Plan of Treatment Upcoming Encounters Date Type Department Care Team (Late st Contact Info) Description 05/28/2024 1:40 PM EDT Office Visit Podiatry [facility] [address] [address] Luly Lance DPM [address] [place] [address] 05/31/2024 2:20 PM EDT Office Visit Nephrology, [facility] 200 [facility] [place] [address] Isa Long MD [address] [place] [address] [place] [address] 06/06/2024 1:30 PM EDT Office Visit Pharmacy, [facility] 200 [facility] [place] [address] Pharmacist1, [facility] 200 [facility] [place] [address] 06/06/2024 2:00 PM EDT Nurse Only Ancillary [facility] 200 [facility] [place] [address] Nurse, Int Med 200 [facility] [place] [address] 08/28/2024 1:30 PM EST Office Visit Gastroenterology, [facility] [address] [address] Rain Medellin CRNP [address] [place] [address] 10/14/2024 3:00 PM EST Office Visit Cardiology, [facility] [address] [address] Fabian Mejia PA-C [address] [address] 11/14/2024 2:00 PM EST Office Visit General Internal Medicine [facility] 200 [facility] [place] [address] Lokesh Nicole MD 200 [place] [address] 11/14/2024 3:45 PM EST Office Visit MOHS Surgery [facility] [address] [facility] [place] [address] Becky Gordon MD 200 [facility] [place], [place] [address] 03/18/2025 10:45 AM EDT Office Visit Dermatology [facility] [address] [facility] [place] [address] Lokesh Mayen MD 200 [facility] [place] [address] Scheduled Procedures Name Priority Associated Diagnoses Date/Ti [...] Additional history exists CKD PHOS USE SMARTSET 18817 03/27/2025 07/0 11/2023, 09/26/2023, 08/23/2022, Additional history exists Depression Screening 03/27/2025 03/27/2024 Diabetic Foot Exam 03/27/2025 03/27/2024, 02/21/2023 CKD HGB USE SMARTSET 68426 04/26/202504/26, 04/26/2024, 04/15/2024, Additional history exists DTap/Tdap [...] encounter Medical Devices Implanted Type Area Machine Filler Shredder Device Identifier Shelf Expiration Date Model / Serial / Lot Strattice [id number] (400 Units) - [id number] [place] [facility] [place] LIFE CELL MISTY 12/23/2012 [id number] / / [id number] Mesh Prolit Hernia [id number] - [id number] Implanted:Qty : 1 on 08[place]14/2012 [place] [facility] [place]: Abdomen [employer] 12/24/2015 [id number] / / [id number] Suture Steel 6 B&S19 M654g - [id number] Implanted:Qty : 3 on 07/10/2020 [place] Ag [place] [facility] [place]/A: Sternum JNJ : [employer] 02/22/2025 M654G / / [id number] Valve Heart Aortic Epic 23mm - [id number] - [id number] Implanted:Qty : 1 on 07/10/2020 by Ag Ball[place]os [place] [facility] [place] N/A: Aorta ST DOMINIK : CARDIOVASCULAR [id number] 03/22/2024 [id number] / [id number] / [id number] documented as of this encounter Visit Diagnoses [...] were consensually agreed upon. Care Teams Accounts Executive Relationship Specialty Start Date End Date Lokesh Nicole MD 200 [facility] [place] [address] PCP - General Internal Medicine 07/22/21 documented as of this encounter
--- OUTSIDE RECORDS SUMMARY | 2024-07-19 11:34 | External Medical Summary | Summary of Care ---
Author Name Unknown Organization [facility] Address [address] [place] [address] Phone [phone] Care Team Providers Care Entry Level Sales Associate Name Role Phone Lokesh Amin MD Primary Care Provider + Reason for Visit * Reason Onset Date Comments Medication Management 05/22/2024 Magnesium Encounter Details Date Type Department Care Team (Late st Contact Info) Description 05/22/2024 Telephone Hematology/Oncology Treatment, [place] [address] [place] [address] Lokesh Amin MD 200 [facility] [place] [address] Medication Management (Magnesium) Allergies Active [...] goal of less than 8.0% ([facility]) Use up to check sugar first [...] goal of less than 8.0% ([facility]) Inject 10 Units under the skin daily. Titrating dose - max dose 30 units daily. DX: E11.9 5 Each 3 04/04/2024 Active Insulin Pen Needle 32G X 6 MMIndications:Type 2 diabetes mellitus with hemoglobin A1c goal of less than 8.0% ([facility]) Use to inject insulin once daily. 100 Each 3 04/04/2024 Active metFORMIN HCl ER 500 MG Oral Tablet Extended Release 24 Hour (Glucophage XR)Indications:Type 2 diabetes mellitus with hemoglobin A1c goal of less than 8.0% ([facility]) Take 2 Tablets by mouth 2 [...] goal of less than 8.0% ([facility]) USE UP TO CHECK SUGARS FIRST [...] mRNA, LNP-s, No Pre serve, 2-Dose Series (Max Rumpus) 06/29/2021,12/15/2020,11/24/2020 COVID-19, LNP-s, No Preserve , Deric-sucrose, Ages 12+ (Pfizer) 02/04/2022 COVID-19, MRNA-LNP, 23-24, P F, 30 MCG/0.3 mL, 12 YRS AND ABOVE, IM ([employer]-Comirnaty) 10/10/2023 Covid-19, Mrna, Lnp-s, Pf, B ivalent, [...] Encounter - Carina Estrada MED ASSIST - 05/22/2024 4:32 PM EDT Order, patient demographics and insurance information successfully faxed. * Telephone Encounter - Mimi Bullock LPN - 05/22/2024 4:04 PM EDT Christa from [facility] is calling. States that they can run 1 gram/hour. No order found in pt's chart and this is needed prior to pt's appt tomorrow. Called PCP office, spoke with Nancy and [facility] Christa aware. * Telephone Encounter - Lokesh Amin MD - 05/22/2024 3:21 PM EDT Ordered, can you make sure the [facility] is ok running 3 grams over 3 hours of magnesium sulfate - thanks(1 gram/hour) * Telephone Encounter - Carina Estrada MED ASSIST - 05/22/2024 2:58 PM EDT Spoke with Christa at [facility]. They will see him tomorrow at 10 to start the infusion. Patient to arrive at 9:45 am at the back of the hospital in the cancer pavilion parking lot, then proceed through the double doors and go straight down that hallway to registration. Asking that order, patient demographic and insurance information to be faxed to [phone]. Patient aware and agreeable. Please provide order so I can fax to [facility]. Thanks! * Telephone Encounter - Lokesh Amin MD - 05/22/2024 2:00 PM EDT Can we call [facility] to see if they can infuse 3 grams magnesium for patient today or tomorrow? He didn't want to go to ER * Telephone Encounter - Hope Zaragoza LPN - 05/22/2024 1:[address] Amin After speaking with Guest Service Representative, Becky Romero RN: Due to no chair [...] 1:13 PM EDT Order received for Magnesium [place] plan built and routed to provider No prior authorization required [place] plan signed documented in this encounter Plan of Treatment Upcoming Encounters Date Type Department Care Team (Late st Contact Info) Description 05/28/2024 1:40 PM EDT Office Visit Podiatry [facility] [address] [place] [address] Luly Lance DPM 132 [facility] [place] [address] 05/31/2024 2:20 PM EDT Office Visit Nephrology, [facility] [address] [place] [address] Isa Long MD [address] [place] [address] [place] [address] 06/06/2024 1:30 PM EDT Office Visit Pharmacy, [facility] [place] [address] [place] [address] [address] Pharmacist1, [facility] [address] [place] [address] 06/06/2024 2:00 PM EDT Nurse Only Ancillary [facility] Jennifer [place] [address] [place] [address] [address] Nurse, Int Med [address] [place] [address] [address] 08/28/2024 1:30 PM EST Office Visit Gastroenterology, [facility] 132 [facility] [place] [address] Rain Medellin CRNP [address] [place] [address] 10/14/2024 3:00 PM EST Office Visit Cardiology, [facility] [address] [place], [place] [address] Fabian Mejia PA-C [address] [place] [address] 11/14/2024 2:00 PM EST Office Visit General Internal Medicine [facility] 200 [facility] [place] [address] Lokesh Amin MD 200 [facility] [place] [address] 11/14/2024 3:45 PM EST Office Visit MOHS Surgery [facility] [address] [facility] [place] [address] Becky Gordon MD [address] [place] [address] [place] [address] 03/18/2025 10:45 AM EDT Office Visit Dermatology [facility] 200 [facility] [place] [place] [address] Lokesh Mayen MD [address] [place] [address] [place] [address] Scheduled Procedures Name Priority Associated Diagnoses Date/Ti [...] Additional history exists CKD PHOS USE SMARTSET 92889 03/27/2025 07/0 11/2023, 09/26/2023, 08/23/2022, Additional history exists Depression Screening 03/27/2025 03/27/2024 Diabetic Foot Exam 03/27/2025 03/27/2024, 02/21/2023 CKD HGB USE SMARTSET 73955 04/26/202504/26, 04/26/2024, 04/15/2024, Additional history exists DTap/Tdap [...] this encounter Medical Devices Implanted Type Area Bladder Cleaner Device Identifier Shelf Expiration Date Model / Serial / Lot Strattice [id number] (400 Units) - [id number] Implanted:Qty : 400 on 10/25/2011 at [place] [facility] [place] Abdomen LIFE CELL MISTY 12/23/2012 [id number] / / [id number] Mesh Prolit Hernia [id number] - [id number] Implanted:Qty : 1 on 08/14/2012 at [place] [facility] [place] Left: Abdomen [employer] 12/24/2015 [id number] / / [id number] Suture Steel 6 B&S19 M654g - [id number] Implanted:Qty : 3 on 07/10/2020 by Ag Ballesteros MD at [place] [facility] [place] N/A: Sternum JNJ : [employer] 02/22/2025 M654G / / [id number] Valve Heart Aortic Epic 23mm - [id number] - [id number] Implanted:Qty : 1 on 07/10/2020 by Ag Ballesteros MD at [place] [facility] [place] N/A: Aorta ST DOMINIK : CARDIOVASCULAR [id number] 03/22/2024 [id number] / [id number] / [id number] documented as of this encounter Advance Directives [...] and were consensually agreed upon. Care Teams Entry Level Sales Associate Relationship Specialty Start Date End Date Lokesh Amin MD 200 [place] [address] PCP - General Internal Medicine 07/22/21 documented as of this encounter
--- OUTSIDE RECORDS SUMMARY | 2024-07-19 11:34 | External Medical Summary | Summary of Care ---
Author Name Unknown Organization [facility] Address [address] [place] [address] Phone [phone] Care Team Providers Care Software Test Specialist Name Role Phone Lokesh Amin MD Primary Care Provider + Reason for Referral * Evaluate & Treat - Unlimited Visits (Within 10 days (routine)) - Authorized Specialty Diagnoses / Procedures Referred By Gladys vazquez Referred To Contact Podiatry Diagnoses Foot lesion Lokesh Amin MD [facility] [place] [address] Referral ID Status Reason Start Date Expiration Date Visits Requested Visits Authorized [id number] Authorized Specialty Services Required 05/22/[phone] Question Answer Referral Priority Within 10 days (routine) Where should this appointment be scheduled? [facility] Which condition are you referring this patient for? General Foot Pain Comments Foot pain, possible plantar wart bottom of foot Reason for Visit * Reason Comments Warts Bottom of foot Encounter Details Date Type Department Care Team (Late st Contact Info) Description 05/22/2024 1:40 PM EDT Office Visit General Internal Medicine [address] [place] [address] [place] [address] Lokesh Amin MD [address] [place] [address] Foot lesion*; Hypomagnesemia; Loose stools Allergies Active Allergy Reactions Criticality Noted Date Comments Demerol Neuro complications (Please comment) High 06/14/2010 confusion Adhesive Tape Rash Low 06/14/2010 documented as of this encounter (statuses as of 05/22/2024) Medications Medication Sig Dispensed Refills Start Date End Date Status GINKOBA 40 MG OR TABS 0 05/10/2004 Active GLUCOSAMINE CHONDROITIN OR TABSIndications:Pa in in limb tid 90 5 08/08/2005 Active Additional Information Patient taking differently:OralDaily(AM), Informant: Patient, Reported on 05/17/2023 VITAMIN C 500 MG PO TABS 1 TABLET DAILY 0 08/15/2006 Active CALCIUM CITRATE + D 315-200 MG-UNIT PO TABS one tab daily Active COLACE 100 MG PO CAPSIndications:In testinal obstruction (HCC) one cap daily 12/23/2010 Acti ve latanoprost (XALATAN) 0.005 % ophthalmic solution Instill 1 Drop into both eyes at bedtime. 11 05/28/2019 Active amoxicillin (AMOXIL) 500 MG Capsule Take 1 Capsule by mouth daily as needed. Patient takes prior to dental appointments. 02/25/2020 Active Albuterol Sulfate HFA 108 (90 Base) MCG/ACT Inhalation Aerosol SolutionIndication s:Acute bronchospasm Inhale 2 Puffs by mouth 4 times a day. 54 g 3 07/29/2021 Active Metoprolol Succinate ER 25 MG Oral Tablet Extended Release 24 Hour (toPROL XL)Indications:Car diomegaly TAKE 1 TABLET BY MOUTH EVERY DAY 90 Tablet 3 08/08/2023 Active Cranberry 500 MG Oral Tablet Take 500 mg by mouth in the morning. Active Eliquis 5 MG Oral Tablet (Apixaban)Indicati ons:Persistent atrial fibrillation (HCC) TAKE 1 TABLET BY MOUTH TWICE A DAY 180 Tablet 1 10/27/2023 Active Spironolactone 25 MG Oral Tablet (Aldactone)Indicat ions:HTN, goal below 140/90 TAKE 1/2 TABLET BY MOUTH EVERY DAY 45 Tablet 3 12/15/2023 Active Furosemide 40 MG Oral Tablet (Lasix)Indications :Bilateral leg edema TAKE 2 TABLETS BY MOUTH IN THE MORNING 180 Tablet 3 12/29/2023 Active Pantoprazole Sodium 40 MG Oral Tablet Delayed Release (Protonix)Indicati ons:Esophageal reflux TAKE 1 TABLET BY MOUTH EVERY DAY IN THE MORNING 90 Tablet 3 01/08/2024 Active Atorvastatin Calcium 10 MG Oral Tablet (Lipitor)Indicatio ns:Dyslipidemia, goal LDL below 70 TAKE 1 TABLET BY MOUTH EVERY DAY 90 Tablet 3 03/11/2024 Active Fluticasone Propionate 50 MCG/ACT Nasal Suspension (Flonase)Indicatio ns:Cough SPRAY 2 SPRAYS INTO EACH NOSTRIL EVERY DAY 48 mL 2 03/24/2024 Active Centrum Silver 50+Men Oral Tablet Take by mouth. Ac tive OneTouch Verio w/Device KitIndications:Typ e 2 diabetes mellitus with hemoglobin A1c goal of less than 8.0% (HCC) Use up to check sugar first thing in am and 2 hours after meals 1 Kit 04/04/2024 Active OneTouch UltraSoft LancetsIndications :Type 2 diabetes mellitus with hemoglobin A1c goal of less than 8.0% (HCC) Use up to check sugar first thing in am and 2 hours after meals 100 Each 1 04/04/2024 Active Insulin Glargine Solostar 100 UNIT/ML Subcutaneous Solution Pen-injector (Lantus SoloStar)Indicatio ns:Type 2 diabetes mellitus with hemoglobin A1c goal of less than 8.0% (HCC) Inject 10 Units under the skin daily. Titrating dose - max dose 30 units daily. DX: E11.9 5 Each 04/04/2024 Active Insulin Pen Needle 32G X 6 MMIndications:Type 2 diabetes mellitus with hemoglobin A1c goal of less than 8.0% (HCC) Use to inject insulin once daily. 100 Each 04/04/2024 Active metFORMIN HCl ER 500 MG Oral Tablet Extended Release 24 Hour (Glucophage XR)Indications:Typ e 2 diabetes mellitus with hemoglobin A1c [...] Active OneTouch Verio In Vitro Strip (Glucose Blood)Indications: Type 2 diabetes mellitus with hemoglobin A1c goal of less than 8.0% (HCC) USE UP TO CHECK SUGARS FIRST THING IN AM AND 2 HOURS AFTER MEALS 100 Strip 1 05/22/2024 Active Slow Magnesium/Calcium 64-106 MG Oral Tablet Delayed Release (magnesium chloride)Indicatio ns:Hypomagnesemia Take 2 Tablets by mouth in the morning and 2 Tablets before bedtime. 05/22/2024 Active Cephalexin 500 MG Oral Capsule Take 1 Capsule by mouth in the morning and 1 Capsule before bedtime. Do all this for 7 days. 14 Capsule 03/11/2024 4 Discontinue d(End of Procedure) Magnesium Oxide (Elemental) 400 MG Oral Tablet Take 400 mg by mouth in the morning and 400 mg at noon and 400 mg in the evening. 05/15/2024 4 Discontinue d(Patient preference/ discontinua tion) Hospital, Clinic, or Other Facility Administered Medication [...] mRNA, LNP-s, No Pre serve, 2-Dose Series (LoopPay) 06/29/2021,12/15/2020,11/24/2020 COVID-19, LNP-s, No Preserve , Deric-sucrose, Ages 12+ (Pfizer) 02/04/2022 COVID-19, MRNA-LNP, 23-24, P F, 30 MCG/0.3 mL, 12 YRS AND ABOVE, IM (PFIZER-Comirnaty) 10/10/2023 Covid-19, Mrna, Lnp-s, Pf, B ivalent, [...] Split, I IV3, With Preserve, Inj 06/11/2015,06/27/2014,06/03/2013,06/13,05/27/2011,06/14/2010,07/29/2008 ,08/01/2007,08/02/2006 Seasonal Influenza, Trivalen t, Adjuvanted, 65+ yrs [...] Sign Reading Time Taken Comments Blood Pressure 98/64 05/22/2024 1:46 PM EDT Pulse 63 05/22/2024 1:46 PM EDT Temperature 35.9 C (96.7 F) 05/22/2024 1:46 PM ED T Respiratory Rate 16 05/22/2024 1:46 PM EDT Oxygen Saturation 97% 05/22/2024 1:46 PM EDT Inhaled Oxygen Concentration - - Weight 89.4 kg (197 lb 1.6 oz) 05/22/2024 1:46 P M EDT Height - - Body Mass Index 30.41 03/27/2024 12:09 PM EDT documented in this [...] as of this encounter Progress Notes * Lokesh Amin MD - 05/22/2024 2:01 PM EDT Chief Complaint Patient presents with Warts Bottom of foot SUBJECTIVE: Jhon Nelson is a 78 year old male with PMH as below who presents for acute. Has a skin lesion on bottom of foot, has been there for many months, but growing, causing more pain is on lateral bottom right foot. No treatment. No discharge or bleeding, no fevers. Hurts to walk but got shoes with more support. Taking questran for loose stools, helping some Patient Active Problem List Diagnosis Impotence of organic origin Incisional hernia Esophageal reflux Hypogonadism, male Osteoarthritis of right hip LVH (left ventricular hypertrophy) HTN, goal below 140/90 Aortic valve regurgitation Heart failure, diastolic, due to HTN ([facility]) S/P AVR (aortic valve replacement) Left carotid stenosis Stage 3a chronic kidney disease Cardiac pacemaker in situ PAF (paroxysmal atrial fibrillation) ([facility]) Type 2 diabetes mellitus with hemoglobin A1c goal of less than 8.0% ([facility]) Chronic diastolic congestive heart failure (HCC) Basal cell carcinoma (BCC) of skin of left ear and external auditory canal Hypomagnesemia Current Outpatient Medications Medication Sig Dispense Refill [...] Drop into both eyes at bedtime. 11 Albuterol Sulfate HFA 108 (90 Base) MCG/ACT Inhalation Aerosol Solution Inhale 2 Puffs by mouth 4 times a day. 54 g 3 Metoprolol Succinate ER 25 MG Oral Tablet Extended Release 24 Hour (toPROL XL) TAKE 1 TABLET BY MOUTH EVERY DAY 90 Tablet 3 Cranberry 500 MG Oral Tablet Take 500 mg by mouth in the morning. Eliquis 5 MG Oral Tablet (Apixaban) TAKE 1 TABLET BY MOUTH TWICE A DAY 180 Tablet 1 Spironolactone 25 MG Oral Tablet (Aldactone) TAKE [...] Silver 50+Men Oral Tablet Take by mouth. AkdemiaTouch Verio w/Device Kit Use up to check sugar first thing in am and 2 hours after meals 1 Kit 0 OneTouch UltraSoft Lancets Use up to check sugar first thing in am and 2 hours after meals 100 Each1 Insulin Glargine Solostar 100 UNIT/ML Subcutaneous Solution [...] the morning and 2 Tablets before bedtime. amoxicillin (AMOXIL) 500 MG Capsule Take 1 Capsule by mouth daily as needed. Patient takes prior todental appointments. Current Facility-Administered Medications Medication Dose Route Frequency Provider Last Rate Last Admin Testosterone Cypionate (Depotestosterone Cypionate) 200 MG/ML inj 100 mg 100 mg Intramuscular Q Month Justen Ewing DO 100 mg at 05/06/24 1421 Review of patient's allergies indicates: Allergen Reactions Demerol Neuro complications (Please comment) confusion Tape [Adhesive Tape] Rash Health Maintenance Due Topic Date Due Adult Wellness Visit 07/07/2017 COVID-19 Vaccine ( season) 2023 ROS: CONSTITUTIONAL: No fevers, sweats, or chills EXTREMITIES: as per hpi ALL OTHER SYSTEMS NEGATIVE I reviewed social, PMH, PSH, and family history and updated where needed. 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 Hazards No Sleep Concern No [...] on file Housing Stability: Not on file Past Medical History: Diagnosis Date Acute pancreatitis Adrenal mass, 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 Bowel obstruction ([facility]) Cardiac pacemaker in situ 11/19/2020 Diverticulitis of colon Glaucoma 01/30/2007 dr rivas HTN, goal below 140/90 12/11/2018 Impotence of organic origin Left carotid stenosis 08/18/2020 PAF (paroxysmal atrial fibrillation) ([facility]) 02/01/2022 Panniculitis 03/07/2012 Type 2 diabetes mellitus with hemoglobin A1c goal of less than 8.0% ([facility]) 08/24/2022 Past Surgical History: Procedure Laterality Date COLONOSCOPY 11/18/2005 Normal repeat in 10 years COLONOSCOPY, DIAGNOSTIC (RECTUM) 01/21/2016 diverticulosis, repeat 10 yrs/COLONOSCOPY FLEXIBLE PROXIMAL DIAGNOSTIC performed by Steve Bahena MD at [facility] COLONOSCOPY, DIAGNOSTIC (RECTUM) 05/19/2023 dvierticulosis / COLONOSCOPY FLEXIBLE PROXIMAL DIAGNOSTIC performed by Freddy Arthur MD at [facility] CYSTOSCOPY 02/26/2013 CYSTOSCOPY 08/05/2014 CYSTOSCOPY 12/26/2014 CYSTOSCOPY/DILATE BLADDER N/A 01/27/2015 CYSTOURETHROSCOPY DILATION BLADDER GENERAL ANESTHESIA performed by Colt North MD at [facility] CYSTOSCOPY/TREAT MINOR LESION(S) N/A 01/27/2015 CYSTOURETHROSCOPY WITH FULGURATION MINOR BLADDER TUMOR performed by Colt North MD at OR [facility] IMPLANT MESH W/ ABD HERNIA REPR/DEBRIDE 08/14/2012 IMPLANTATION MESH WITH INCISIONAL/VENTRAL HERNIA performed by Adryan Kunz MD at [facility] MUSCLE-SKIN FLAP, TRUNK 10/18/2011 MUSCLE MYOCUTANEOUS OR FASCIOCUTANEOUS FLAP TRUNK performed by NANCY GARCIA at [facility] MUSCLE-SKIN FLAP, TRUNK 10/25/2011 MUSCLE MYOCUTANEOUS OR FASCIOCUTANEOUS FLAP TRUNK performed by NANCY GARCIA at OR [facility] PARTIAL REMOVAL OF COLON REMOVAL OF APPENDIX REMOVAL OF PROSTATE (TURP) 01/27/2015 TRANSURETHRAL RESECTION PROSTATE ELECTROSURGICAL performed by Colt North MD at [facility] REMOVAL OF TONSILS, UNDER AGE 12 REMOVE GALLBLADDER REPAIR INITIAL INCISIONAL OR VENTRAL HERNIA; REDUCIBLE 04/25/2011 REPAIR INITIAL INCISIONAL /VENTRAL HERNIA REDUCIBLE performed by NJ CHRISTINE at OR [facility]-not performed REPAIR INITIAL INCISIONAL OR VENTRAL HERNIA; REDUCIBLE 09/22/2011 REPAIR INITIAL INCISIONAL /VENTRAL HERNIA REDUCIBLE performed by NJ CHRISTINE at [facility] REPAIR INITIAL INCISIONAL OR VENTRAL HERNIA; REDUCIBLE 10/25/2011 REPAIR INITIAL INCISIONAL /VENTRAL HERNIA REDUCIBLE performed by NJ CHRISTINE at [facility] REPAIR INITIAL INCISIONAL OR VENTRAL HERNIA; REDUCIBLE 08/14/2012 REPAIR INITIAL INCISIONAL /VENTRAL HERNIA REDUCIBLE performed by Adryan Kunz MD at [facility] REPLACEMENT AORTIC VALVE, BYPASS WITH PROSTHETIC VALVE N/A 07/10/2020 REPLACEMENT AORTIC VALVE, BYPASS WITH PROSTHETIC VALVE performed by Ag Ballesteros MD at [facility] TOTAL HIP REPLACEMENT & PROSTHESIS 11/04/2013 Right - Dr. Barbosa Family History Problem Relation Name Age of Onset Diabetes Father Heart Disorder Father Heart Disorder Mother Thyroid Disorder Brother OBJECTIVE: PHYSICAL EXAM: BP 98/64 (BP Site: Left Arm, BP Position: Sitting, BP Cuff Size: Regular) | Pulse 63 | Temp 35.9 C (96.7 F) (Tympanic) | Resp 16 | Wt 89.4 kg (197 lb 1.6 oz) | SpO2 97% | BMI 30.41 kg/m | BSA 2.06 m General: alert, healthy, and no distress Head: Normocephalic, No masses, lesions, or abnormalities Extremities: no clubbing, no cyanosis, tender wart like growth bottom right foot at area of concern, no warmth or collection Neuro Exam: alert with fluent speech, gait normal I reviewed last gfr, magnesium ASSESSMENT: (L98.9) Foot lesion (primary encounter diagnosis) (E83.42) Hypomagnesemia (R19.5) Loose stools PLAN: Foot lesion (Primary) - PODIATRY REFERRAL OP Will get to podiatry given pain, growing Discussed otc treatment as well Hypomagnesemia - Slow Magnesium/Calcium 64-106 MG Oral Tablet Delayed Release (magnesium chloride); Take 2 Tabletsby mouth in the morning and 2 Tablets before bedtime. Ongoing Discussed infusion center can't get in this week, so won't be until next week. We discussed ER for iv magnesium as low mag can cause cardiac issues, he declines for now, wants to not go to er, will see if [facility] can do infusion Switch today from mag oxide to slow mag, this should help stools, levels Labs tomorrow Loose stools Cont med with colestipol Stop mag oxide Follow Up: Return if symptoms worsen or fail to improve. Lokesh Amin MD documented in this encounter Nursing Notes * Carina Estrada, MED ASSIST - 05/22/2024 1:45 PM EDT Jhon Nelson 78 year old male is here for what he believes is a plantar wart on the bottom of his right foot. He states that it has been there for some time. However it has just recently become uncomfortable. documented in this encounter Plan of Treatment Upcoming Encounters Date Type Department Care Team (Late st Contact Info) Description 05/28/2024 1:40 PM EDT Office Visit Podiatry [facility] [address] [place] [address] Luly Lance DPM [address] [place] [address] 05/31/2024 2:20 PM EDT Office Visit Nephrology, [facility] [address] [place] [address] Isa Long MD [address] [place] [address] [place] [address] 06/06/2024 1:30 PM EDT Office Visit Pharmacy, [facility] Jennifer [place] [address] [place] [address] Pharmacist1, [facility] [address] [place] [address] 06/06/2024 2:00 PM EDT Nurse Only Ancillary [facility] [place] [address] [place] [address] Nurse, Int Med [address] [place] [address] [address] 08/28/2024 1:30 PM EST Office Visit Gastroenterology, [facility] [address] [facility] [place], [place] [address] Rain Medellin CRNP [address] [place] [address] 10/14/2024 3:00 PM EST Office Visit Cardiology, [facility] [address] [facility] [place] [address] Fabian Mejia PA-C [address] [place] [address] 11/14/2024 2:00 PM EST Office Visit General Internal Medicine [address] [place] [address] Lokesh Amin MD [address] [place] [address] [place] [address] 11/14/2024 3:45 PM EST Office Visit [facility] Surgery [facility] [address] [place] [address] Becky Gordon MD [address] [place] [address] [place] [address] 03/18/2025 10:45 AM EDT Office Visit Dermatology [address] [place] [address] Lokesh Mayen MD [address] [place] [address] [place] [address] Scheduled Procedures Name Priority Associated Diagnoses Date/Ti me COLONOSCOPY FLEXIBLE PROXIMAL DIAGNOSTIC Recall Colon cancer screening Scheduled Referrals Name Type Priority Associated Diagnoses Orde r Schedule PODIATRY REFERRAL OP Referral Within 10 days (routine) Foot lesion Ordered: 05/22/2024 Health Maintenance Due Date Last Done Comments Adult Wellness Visit 07/07/2017 07/07/2016 COVID-19 Vaccine (7 - 2023-24 season) 2023 10/10/2023, 03/02/2023, 02/04/2022, Additional history exists Influenza Vaccine (FLU shot) (#1) 2024 06/26/2023, 06/09/2022, 06/17/2021, Additional history exists Diabetic Eye Exam 08/01/2024 08/01/2023, , 07/25/2005 Albumin/Creatinine Ratio 09/26/2024 09/26/2023, 07/27 HbA1c 10/16/2024 04/15/2024, 0711/2023, 09/26/2023, Additional history exists GFR 11/21/2024 05/21/2024, 04/25, 05/06/2024, Additional history exists CKD PHOS USE SMARTSET 64065 03/27/2025 07/0 11/2023, 09/26/2023, 08/23/2022, Additional history exists Depression Screening 03/27/2025 03/27/2024 Diabetic Foot Exam 03/27/2025 03/27/2024, 02/21/2023 CKD HGB USE SMARTSET 62023 04/26/202504/26, 04/26/2024, 04/15/2024, Additional history exists DTap/Tdap [...] this encounter Medical Devices Implanted Type Area Metal Sander Device Identifier Shelf Expiration Date Model / Serial / Lot Korey [id number] (400 Units) - [id number] Implanted:Qty : 400 on 10/25/2011 at OR [facility] Abdomen [employer] CE[employer] MISTY 12/23/2012 [id number] / / [id number] Mesh Prolit Hernia [id number] - [id number] Implanted:Qty : 1 on 08/14/2012 at OR [facility] Left: Abdomen [employer] 12/24/2015 [id number] / / [id number] Suture Steel 6 B&S19 M654g - [id number] Implanted:Qty : 3 on 07/10/2020 by Ag Ballesteros MD at OR [facility] N/A: Sternum JNJ : [employer] 02/22/2025 [id number] / / [id number] Valve Heart Aortic Epic 23mm - [id number] - [id number] Implanted:Qty : 1 on 07/10/2020 by Ag Ballesteros MD at OR [facility] N/A: Aorta ST DOMINIK : CARDIOVASCULAR [id number] 03/22/2024 [id number] / [id number] / [id number] documented as of this encounter Visit Diagnoses Diagnosis Foot lesion- Primary Unspecified disorder of skin and subcutaneous tissue Hypomagnesemia Disorders of magnesium metabolism Loose stools Abnormal feces documented in this encounter Advance Directives * [...] and were consensually agreed upon. Care Teams Software Test Specialist Relationship Specialty Start Date End Date Lokesh Amin MD [address] [facility] [place] [address] PCP - General Internal Medicine 07/22/21 documented as of this encounter"
--- OUTSIDE RECORDS SUMMARY | 2024-07-19 11:34 | External Medical Summary | Summary of Care ---
Author Name Unknown Organization [facility] Address [address] [place] [address] Phone [phone] Care Team Providers Care Courier Name Role Phone Lokesh Amin MD Primary Care Provider + Reason for Visit * Reason Onset Date Comments Medication Management 05/22/2024 Magnesium Encounter Details Date Type Department Care Team (Late st Contact Info) Description 05/22/2024 Telephone Hematology/Oncology Treatment, [place] [address] [place] [address] Lokesh Amin MD 200 [facility] [place] [address] Medication Management (Magnesium) Allergies Active [...] less than 8.0% ([facility]) Use up to check sugar [...] less than 8.0% ([facility]) Inject 10 Units under the skin daily. Titrating dose - max dose 30 units daily. DX: E11.9 5 Each 3 04/04/2024 Active Insulin Pen Needle 32G X 6 MMIndications:Type 2 diabetes mellitus with hemoglobin A1c goal of less than 8.0% ([facility]) Use to inject insulin once daily. 100 Each 3 04/04/2024 Active metFORMIN HCl ER 500 MG Oral Tablet Extended Release 24 Hour (Glucophage XR)Indications:Type 2 diabetes mellitus with hemoglobin A1c goal of less than 8.0% ([facility]) Take 2 Tablets by mouth 2 times [...] less than 8.0% ([facility]) USE UP TO CHECK SUGARS FIRST THING [...] mRNA, LNP-s, No Pre serve, 2-Dose Series ([employer]) 06/29/2021,12/15/2020,11/24/2020 COVID-19, LNP-s, No Preserve , Deric-sucrose, Ages 12+ (Pfizer) 02/04/2022 COVID-19, MRNA-LNP, 23-24, P F, 30 MCG/0.3 mL, 12 YRS AND ABOVE, IM (StemCyte-Comirnaty) 10/10/2023 Covid-19, Mrna, Lnp-s, Pf, B ivalent, [...] Trivalen t, (IIV3), with Preserv, (Fluzone) 06/11/2015,06/27/2014,06/03/2013,06/13,05/27/2011,06/14/2010,07/29/2008 ,08/01/2007,08/02/2006,07/28/2005 Seasonal Influenza, Trivalen t, Adjuvanted, 65+ YRS, [...] encounter Miscellaneous Notes * Telephone Encounter - Vanessa Wallace LPN - 05/23/2024 8:25 AM EDT Rae calling in from [facility] stating patient is coming in 05/23/24 @ 10 AM for magnesium transfusion and the order needs checked to see if it needs a PA. Called PCP office and spoke with Nancy and made her aware. * Telephone Encounter - Carina Estrada MED MARGRET - 05/22/2024 4:32 PM EDT Order, patient demographics and insurance information successfully faxed. * Telephone Encounter - Mimi Bullock LPN - 05/22/2024 4:04 PM EDT Christa from [facility] is calling. States that they can run 1 gram/hour. No order found in pt's chart and this is needed prior to pt's appt tomorrow. Called PCP office, spoke with Nancy and will fax order and documents to [facility] now. Christa aware. * Telephone Encounter - Lokesh Amin MD - 05/22/2024 3:21 PM EDT Ordered, can you make sure the [facility] is ok running 3 grams over 3 hours of magnesium sulfate - thanks(1 gram/hour) * Telephone Encounter - Carina Estrada, MED ASSIST - 05/22/2024 2:58 PM EDT Spoke with Christa at [facility]. They will see him tomorrow at 10 to start the infusion. Patient to arrive at 9:45 am at the back of the hospital in the cancer pavilion parking lot, then proceed through the double doors and go straight down that hallway to registration. Asking that order, patient demographic and insurance information to be faxed to [phone]. Patient aware and agreeable. Please provide order so I can fax to [facility]. Thanks! * Telephone Encounter - Lokesh Amin MD - 05/22/2024 2:00 PM EDT Can we call [facility] to see if they can infuse 3 grams magnesium for patient today or tomorrow? He didn't want to go to ER * Telephone Encounter - Hope Zaragoza LPN - 05/22/2024 1:[address] Amin After speaking with Ground Operations Crew Member, Becky Romero RN: Due to no chair [...] 1:13 PM EDT Order received for Magnesium [place] plan built and routed to provider No prior authorization required [place] plan signed documented in this encounter Plan of Treatment Upcoming Encounters Date Type Department Care Team (Late st Contact Info) Description 05/28/2024 1:40 PM EDT Office Visit Podiatry [facility] [address] [facility] [place] [address] Luly Lance DPM [address] [place] [address] 05/31/2024 2:20 PM EDT Office Visit Nephrology, [facility] [address] [place] [address] Isa Long MD [address] [place] [address] [place] [address] 06/06/2024 1:30 PM EDT Office Visit Pharmacy, [facility] [address] [place] [address] Pharmacist1, [facility] [address] [facility] [address] [place], [place] [address] 06/06/2024 2:00 PM EDT Nurse Only Ancillary [facility] [address] [facility] [place] [address] Nurse, Int Med [address] [facility] [place] [address] 08/28/2024 1:30 PM EST Office Visit Gastroenterology, [facility] [address] [place] [address] Rain Medellin CRNP [address] [place] [address] 10/14/2024 3:00 PM EST Office Visit Cardiology, [facility] [address] [facility] [place] [address] Fabian Mejia PA-C [address] [place] [address] 11/14/2024 2:00 PM EST Office Visit General Internal Medicine [facility] [address] [facility] [place] [address] Lokesh Amin MD [address] [facility] [place], [place] [address] 11/14/2024 3:45 PM EST Office Visit MOHS Surgery [facility] [address] [facility] [address] [place], [place] [address] Becky Gordon MD [address] [facility] [address] [place], [place] [address] 03/18/2025 10:45 AM EDT Office Visit Dermatology [facility] [address] [facility] [address] [place], [place] [address] Lokesh Mayen MD [address] [facility] [place] [address] Scheduled Procedures Name Priority Associated Diagnoses Date/Ti [...] Additional history exists CKD PHOS USE SMARTSET 99468 03/27/2025 07/0 11/2023, 09/26/2023, 08/23/2022, Additional history exists Depression Screening 03/27/2025 03/27/2024 Diabetic Foot Exam 03/27/2025 03/27/2024, 02/21/2023 CKD HGB USE SMARTSET 00439 04/26/202504/26, 04/26/2024, 04/15/2024, Additional history exists DTap/Tdap [...] this encounter Medical Devices Implanted Type Area Case Planner Device Identifier Shelf Expiration Date Model / Serial / Lot Korey [id number] (400 Units) - [id number] Implanted:Qty : 400 on 10[place]25[place] [facility] [place]dom[place] LIFE CELL MISTY 12/23/[id number] / / [id number] Mesh Prolit Hernia [id number] - [id number] Implanted:Qty : 1 on 08/14/2012 [place] [facility] Left: Abdomen [employer] 12/24/2015 [id number] / / [id number] Suture Steel 6 B&S19 M654g - [id number] Implanted:Qty : 3 on 07/10/2020 by Ag Ballesteros MD at [place] [facility] N/A: Sternum JNJ : [employer] 02/22/2025 M654G / / [id number] Valve Heart Aortic Epic 23mm - [id number] - [id number] Implanted:Qty : 1 on 07/10/2020 by Ag Ballesteros MD at [place] [facility] N/A: Aorta ST DOMINIK : CARDIOVASCULAR [id number] 03/22/2024 [id number]- 00 / [id number] / [id number] documented as of this encounter Advance Directives [...] and were consensually agreed upon. Care Teams Courier Relationship Specialty Start Date End Date Lokesh Amin MD 200 [facility] [place] [address] PCP - General Internal Medicine 07/22/21 documented as of this encounter
--- OUTSIDE RECORDS SUMMARY | 2024-07-19 11:34 | External Medical Summary | Summary of Care ---
Author Name Unknown Organization [facility] Address [address] [place] [address] Phone [phone] Care Team Providers Care Grounds Maintenance Supervisor Name Role Phone Lokesh Amin MD Primary Care Provider + Reason for Visit * Reason Onset Date Comments Medication Management 05/22/2024 Magnesium Encounter Details Date Type Department Care Team (Late st Contact Info) Description 05/22/2024 Telephone Hematology/Oncology Treatment, [place] [address] [place] [address] Lokesh Amin MD 200 [facility] [place] [address] Medication Management (Magnesium) Allergies Active [...] A1c goal of less than 8.0% ([facility]) Use up to check sugar [...] A1c goal of less than 8.0% ([facility]) Inject 10 Units under the skin daily. Titrating dose - max dose 30 units daily. DX: E11.9 5 Each 3 04/04/2024 Active Insulin Pen Needle 32G X 6 MMIndications:Type 2 diabetes mellitus with hemoglobin A1c goal of less than 8.0% ([facility]) Use to inject insulin once daily. 100 Each 3 04/04/2024 Active metFORMIN HCl ER 500 MG Oral Tablet Extended Release 24 Hour (Glucophage XR)Indications:Type 2 diabetes mellitus with hemoglobin A1c goal of less than 8.0% ([facility]) Take 2 Tablets by mouth 2 [...] A1c goal of less than 8.0% ([facility]) USE UP TO CHECK SUGARS FIRST [...] mRNA, LNP-s, No Pre serve, 2-Dose Series ([email or web address]) 06/29/2021,12/15/2020,11/24/2020 COVID-19, LNP-s, No Preserve , Deric-sucrose, Ages 12+ (Pfizer) 02/04/2022 COVID-19, MRNA-LNP, 23-24, P F, 30 MCG/0.3 mL, 12 YRS AND ABOVE, IM (SCHAD-Comirnaty) 10/10/2023 Covid-19, Mrna, Lnp-s, Pf, B ivalent, [...] 8:25 AM EDT [facility]ae calling [facility] stating patient is coming in 05/23/24 @ [...] - 05/22/2024 4:04 PM EDT Christa [facility] is calling. States that they can run 1 gram/hour. No order found in pt's chart and this is needed prior to pt's appt tomorrow. Called PCP office, spoke with Nancy and will fax order and documents to [facility] now. Christa aware. * Telephone Encounter - Lokesh Amin MD - 05/22/2024 3:21 PM EDT Ordered, can you make sure the [facility] is ok running 3 grams over 3 hours of magnesium sulfate - thanks(1 gram/hour) * Telephone Encounter - aCrina Estrada, MED ASSIST - 05/22/2024 2:58 PM EDT Spoke with Christa at [facility]. They will see him tomorrow at 10 to start the infusion. Patient to arrive at 9:45 am at the back of the hospital in the cancer pavilion parking lot, then proceed through the double doors and go straight down that hallway to registration. Asking that order, patient demographic and insurance information to be faxed to [phone]. Patient aware and agreeable. Please provide order so I can fax to [facility]. Thanks! * Telephone Encounter - Lokesh Amin MD - 05/22/2024 2:00 PM EDT Can we call [facility] to see if they can infuse 3 grams magnesium for patient today or tomorrow? He didn't want to go to ER * Telephone Encounter - Hope Zaragoza LPN - 05/22/2024 1:[address] Amin After speaking with Collection Technician, Becky Romero RN: Due to no chair [...] 1:13 PM EDT Order received for Magnesium [place] plan built and routed to provider No prior authorization required [place] plan signed documented in this encounter Plan of Treatment Upcoming Encounters Date Type Department Care Team (Late st Contact Info) Description 05/28/2024 1:40 PM EDT Office Visit Podiatry [facility] [place] [address] Luly Lance DPM [address] [place] [address] 05/31/2024 2:20 PM EDT Office Visit Nephrology, [facility] [address] [facility] [place] [address] Isa Long MD [address] [place] [address] [place] [address] 06/06/2024 1:30 PM EDT Office Visit Pharmacy, [facility] [address] [facility] [place] [address] Pharmacist1, [facility] [address] [facility] [place] [address] 06/06/2024 2:00 PM EDT Nurse Only Ancillary [facility] [address] [facility] [place] [address] Nurse, Int Med [address] [facility] [place] [address] 08/28/2024 1:30 PM EST Office Visit Gastroenterology, [facility] [address] [facility] [address] Rain Medellin CRNP [address] [place] [address] 10/14/2024 3:00 PM EST Office Visit Cardiology, [facility] [address] [place] [address] Fabian Mejia PA-C [address] [place] [address] 11/14/2024 2:00 PM EST Office Visit General Internal Medicine [facility] [address] [facility] [place] [address] Lokesh Amin MD [address] [facility] [place] [address] 11/14/2024 3:45 PM EST Office Visit [facility] [address] Becky Gordon MD [address] [facility] [place] [address] 03/18/2025 10:45 AM EDT Office Visit Dermatology [facility] [address] [place] [address] Lokesh Mayen MD [address] [place] [address] Scheduled Procedures Name Priority Associated Diagnoses Date/Ti me COLONOSCOPY FLEXIBLE PROXIMAL DIAGNOSTIC Recall Colon cancer screening [facility] Maintenance Due Date Last Done Comments Adult [...] Additional history exists CKD PHOS USE SMARTSET 88524 03/27/2025 07/0 11/2023, 09/26/2023, 08/23/2022, Additional history exists Depression Screening 03/27/2025 03/27/2024 Diabetic Foot Exam 03/27/2025 03/27/2024, 02/21/2023 CKD HGB USE SMARTSET 97509 04/26/202504/26, 04/26/2024, 04/15/2024, Additional history exists DTap/Tdap [...] this encounter Medical Devices Implanted Type Area Portfolio Specialist Device Identifier Shelf Expiration Date Model / Serial / Lot Strattice [id number] (400 Units) - [id number] Implanted:Qty : 400 on 10/25/2011 [place] [facility] Abdomen LIFE CELL MISTY 12/23/2012 / / [id number] Mesh Prolit Hernia [id number] - [id number] Implanted:Qty : 1 on 08/14/2012 at [place] [facility] Left: Abdomen [employer] M[employer] 12/24/2015 [id number] / / [id number] Suture Steel 6 B&S19 M654g - [id number] Implanted:Qty : 3 on 07/10/2020 by Ag Ballesteros MD at [place] [facility] N/A: Sternum JNJ : [employer] 02/22/2025 M654G / / [id number] Valve Heart Aortic Epic 23mm - [id number] - [id number] Implanted:Qty : 1 on 07/10/2020 by Ag Ballesteros MD at [place] [facility] N/A: Aorta ST DOMINIK : CARDIOVASCULAR [id number] 03/22/2024 [id number]- 00 / [id number] / [id number] documented as of this encounter Advance Directives [...] and were consensually agreed upon. Care Teams Grounds Maintenance Supervisor Relationship Specialty Start Date End Date Lokesh Amin MD 200 [place] [address] PCP - General Internal Medicine 07/22/21 documented as of this encounter
--- OUTSIDE RECORDS SUMMARY | 2024-07-19 11:34 | External Medical Summary | Summary of Care ---
Author Name Unknown Organization [facility] Address [address] [place] [address] Phone [phone] Care Team Providers Care Ampoule Sealer Name Role Phone Lokesh Amin MD Primary Care Provider + Reason for Visit * Reason Onset Date Comments Medication Management 05/22/2024 Magnesium Encounter Details Date Type Department Care Team (Late st Contact Info) Description 05/22/2024 Telephone Hematology/Oncology Treatment, [place] [address] [place] [address] Lokesh Amin MD 200 [facility] [place] [address] Medication Management (Magnesium) Allergies Active [...] goal of less than 8.0% ([facility]) Use up to check sugar [...] goal of less than 8.0% ([facility]) Inject 10 Units under the skin daily. Titrating dose - max dose 30 units daily. DX: E11.9 5 Each 3 04/04/2024 Active Insulin Pen Needle 32G X 6 MMIndications:Type 2 diabetes mellitus with hemoglobin A1c goal of less than 8.0% ([facility]) Use to inject insulin once daily. 100 Each 3 04/04/2024 Active metFORMIN HCl ER 500 MG Oral Tablet Extended Release 24 Hour (Glucophage XR)Indications:Type 2 diabetes mellitus with hemoglobin A1c goal of less than 8.0% ([facility]) Take 2 Tablets by mouth [...] goal of less than 8.0% ([facility]) USE UP TO CHECK SUGARS [...] mRNA, LNP-s, No Pre serve, 2-Dose Series ([employer]) 06/29/2021,12/15/2020,11/24/2020 COVID-19, LNP-s, No Preserve , Deric-sucrose, Ages 12+ (Pfizer) 02/04/2022 COVID-19, MRNA-LNP, 23-24, P F, 30 MCG/0.3 mL, 12 YRS AND ABOVE, IM (Melty-Comirnaty) 10/10/2023 Covid-19, Mrna, Lnp-s, Pf, B ivalent, [...] encounter Miscellaneous Notes * Telephone Encounter - Lokesh Amin MD - 05/22/2024 3:21 PM EDT Ordered, can you make sure the [facility] is ok running 3 grams over 3 hours of magnesium sulfate - thanks(1 gram/hour) * Telephone Encounter - Carina Estrada MED ASSIST - 05/22/2024 2:58 PM EDT Spoke with Christa at [facility]. They will see him tomorrow at 10 to start the infusion. Patient to arrive at 9:45 am at the back of the hospital in the cancer pavilion parking lot, then proceed through the double doors and go straight down that hallway to registration. Asking that order, patient demographic and insurance information to be faxed to [phone]. Patient aware and agreeable. Please provide order so I can fax to [facility]. Thanks! * Telephone Encounter - Lokesh Amin MD - 05/22/2024 2:00 PM EDT Can we call [facility] to see if they can infuse 3 grams magnesium for patient today or tomorrow? He didn't want to go to ER * Telephone Encounter - Hope Zaragoza LPN - 05/22/2024 1:[address] Amin After speaking with Quality Nurse, Becky Romero RN: Due to no chair [...] 1:13 PM EDT Order received for Magnesium [place] plan built and routed to provider No prior authorization required [place] plan signed documented in this encounter Plan of Treatment Upcoming Encounters Date Type Department Care Team (Late st Contact Info) Description 05/28/2024 1:40 PM EDT Office Visit Podiatry [facility] [address] [place] [address] Luly Lance DPM [address] [place] [address] 05/31/2024 2:20 PM EDT Office Visit Nephrology, [facility] [place] [address] Isa Long MD [address] [facility] [place] [address] 06/06/2024 1:30 PM EDT Office Visit Pharmacy, [facility] [address] [facility] [place] [address] Pharmacist1, [facility] [address] [place] [address] 06/06/2024 2:00 PM EDT Nurse Only Ancillary [facility] [address] [facility] [place] [address] Nurse, Int Med [address] [place] [address] 08/28/2024 1:30 PM EST Office Visit Gastroenterology, [facility] [address] [facility] [place] [address] Rain [place]in CRNP [facility] [place] [address] 10/14/2024 3:00 PM EST Office Visit Cardiology, [facility] [address] [facility] [place] [address] Fabian Mejia PA-C [facility] [place] [address] 11/14/2024 2:00 PM EST Office Visit General Internal Medicine [facility] [address] [facility] [place] [address] Lokesh Amin MD [address] [facility] [place] [address] 11/14/2024 3:45 PM EST Office Visit MOHS Surgery [facility] [place] [address] [place] [address] Becky Gordon MD 200 [place] [address] 03/18/2025 10:45 AM EDT Office Visit Dermatology [facility] [place] [address] [place] [address] Lokesh Mayen MD [address] [place] [address] Scheduled Procedures Name Priority Associated Diagnoses Date/Ti [...] Additional history exists CKD PHOS USE SMARTSET 39433 03/27/2025 07/0 11/2023, 09/26/2023, 08/23/2022, Additional history exists Depression Screening 03/27/2025 03/27/2024 Diabetic Foot Exam 03/27/2025 03/27/2024, 02/21/2023 CKD HGB USE SMARTSET 61338 04/26/202504/26, 04/26/2024, 04/15/2024, Additional history exists DTap/Tdap [...] this encounter Medical Devices Implanted Type Area Data Acquisition Technician Device Identifier Shelf Expiration Date Model / Serial / Lot Strattice [id number] (400 Units) - [id number] Implanted:Qty : 400 on 10/25/2011 at [place] [facility] [place] Abdomen LIFE CELL MISTY 12/23/2012 [id number] / / [id number] Mesh Prolit Hernia [id number] - [id number] Implanted:Qty : 1 on 08/14/2012 at [place] [facility] [place] Left: Abdomen [employer] MISTY 12/24/2015 [id number] / / [id number] Suture Steel 6 B&S19 M654g - [id number] Implanted:Qty : 3 on 07/10/2020 by Ag Ballesteros MD at [place] [facility] [place] N/A: Sternum JNJ : [employer] 02/22/2025 M654G / / [id number] Valve Heart Aortic Epic 23mm - [id number] - [id number] Implanted:Qty : 1 on 07/10/2020 by Ag Ballesteros MD at OR [facility] [place] N/A: Aorta ST DOMINIK : CARDIOVASCULAR [id number] 03/22/2024 [id number]- 00 / [id number] / [id number] documented as of this encounter Advance Directives [...] and were consensually agreed upon. Care Teams Ampoule Sealer Relationship Specialty Start Date End Date Lokesh Amin MD 200 [place] [address] PCP - General Internal Medicine 07/22/21 documented as of this encounter
--- OUTSIDE RECORDS SUMMARY | 2024-07-19 11:34 | External Medical Summary ---
Author Name Unknown Address Unknown Organization K01:[facility] - [address] [facility] [address] Laboratory Report Ordering Provider Test Date Status COREY JARAMILLO 05/23/2024 15:34:51 Final Observation Date Value Abnormality Reference (Units ) Status BUN 05/23/2024 15:34:51 14 6-20 (mg/dL) Final Creatinine 05/23/2024 15:34:51 1.4 Above high normal 0.6-1.2 (mg/dL) Final Glomerular filtration rate/1.73 sq M.predicted [Volume Rate/Area] in Serum, Plasma or Blood by Creatinine-based formula (CKD-EPI) 05/23/2024 15:34:51 54 Below low normal >=60 (mL/min) Final eGFR is calculated based on the CKD-EPI 2020 equation. Sodium 05/23/2024 15:34:51 142 135-146 (m mol/L) Final Potassium 05/23/2024 15:34:51 4.1 3.5-5.1 (m mol/L) Final Cl 05/23/2024 15:34:51 102 98-107 (mm ol/L) Final CO2 05/23/2024 15:34:51 27 22-32 (mmo l/L) Final Anion gap 05/23/2024 15:34:51 13 7-15 (mmol /L) Final Glucose 05/23/2024 15:34:51 147 Above high normal 70 -120 (mg/dL) Final Calcium 05/23/2024 15:34:51 9.1 8.4-10.2 ( mg/dL) Final Performing Location [facility] - [address] [place] [address]
--- OUTSIDE RECORDS SUMMARY | 2024-07-19 11:34 | External Medical Summary | Summary of Care ---
Author Name Unknown Organization [facility] Address [address] [place] [address] Phone [phone] Care Team Providers Care Phone Technician Name Role Phone Lokesh Amin MD Primary Care Provider + Reason for Referral * Evaluate & Treat - Unlimited Visits (Within 3 days (urgent)) - Authorized Specialty Diagnoses / Procedures Referred By Gladys vazquez Referred To Contact Nephrology Diagnoses Hypomagnesemia Lokesh Amin MD [facility] [place] [address] Referral ID Status Reason Start Date Expiration Date Visits Requested Visits Authorized [id number] Authorized Specialty Services Required 05/22/[phone] Question Answer Referral Priority Within 3 days (urgent) Where should this appointment be scheduled? [facility] What condition is this patient being seen for? Electrolyte Problem Reason for Visit * Reason Onset Date Comments Test Results 05/14/2024 Encounter Details Date Type Department Care Team (Late st Contact Info) Description 05/14/2024 Telephone General Internal Medicine [employer] [address] [place] [address] Lokesh Amin MD [address] [facility] [address] [facility] [address] Test Results Allergies Active Allergy Reactions Criticality Noted Date Comments Demerol Neuro complications (Please comment) High 06/14/2010 confusion Adhesive Tape Rash Low 06/14/2010 documented as of this encounter (statuses as of 05/24/2024) Medications Medication Sig Dispensed Refills Start Date End Date Status GINKOBA 40 MG OR TABS 0 4 Active GLUCOSAMINE CHONDROITIN OR TABSIndications: Pain in limb tid 90 5 5 Active Additional Information Patient taking differently:OralDaily(AM), Informant: Patient, Reported on 05/17/2023 VITAMIN C 500 MG PO TABS 1 TABLET DAILY 0 6 Active CALCIUM CITRATE + D 315-200 MG-UNIT PO TABS one tab daily Active COLACE 100 MG PO CAPSIndications: Intestinal obstruction (HCC) one cap daily 1 Active latanoprost (XALATAN) 0.005 % ophthalmic solution Instill 1 Drop into both eyes at bedtime. 11 9 Active amoxicillin (AMOXIL) 500 MG Capsule Take 1 Capsule by mouth daily as needed. Patient takes prior to dental appointments. 0 Active Albuterol Sulfate HFA 108 (90 Base) MCG/ACT Inhalation Aerosol SolutionIndicati ons:Acute bronchospasm Inhale 2 Puffs by mouth 4 times a day. 54 g 3 1 Active Metoprolol Succinate ER 25 MG Oral Tablet Extended Release 24 Hour (toPROL XL)Indications:C ardiomegaly TAKE 1 TABLET BY MOUTH EVERY DAY 90 Tablet 3 3 Active Cranberry 500 MG Oral Tablet Take 500 mg by mouth in the morning. Active Eliquis 5 MG Oral Tablet (Apixaban)Indica tions:Persistent atrial fibrillation (HCC) TAKE 1 TABLET BY MOUTH TWICE A DAY 180 Tablet 1 4 Active Spironolactone 25 MG Oral Tablet (Aldactone)Indic ations:HTN, goal below 140/90 TAKE 1/2 TABLET BY MOUTH EVERY DAY 45 Tablet 3 4 Active Furosemide 40 MG Oral Tablet (Lasix)Indicatio ns:Bilateral leg edema TAKE 2 TABLETS BY MOUTH IN THE MORNING 180 Tablet 3 4 Active Pantoprazole Sodium 40 MG Oral Tablet Delayed Release (Protonix)Indica tions:Esophageal reflux TAKE 1 TABLET BY MOUTH EVERY DAY IN THE MORNING 90 Tablet 3 4 Active Atorvastatin Calcium 10 MG Oral Tablet (Lipitor)Indicat ions:Dyslipidemi a, goal LDL below 70 TAKE 1 TABLET BY MOUTH EVERY DAY 90 Tablet 3 4 Active Fluticasone Propionate 50 MCG/ACT Nasal Suspension (Flonase)Indicat ions:Cough SPRAY 2 SPRAYS INTO EACH NOSTRIL EVERY DAY 48 mL 2 4 Active Centrum Silver 50+Men Oral Tablet Take by mouth. Active OneTouch Verio w/Device KitIndications:T ype 2 diabetes mellitus with hemoglobin A1c goal of less than 8.0% (HCC) Use up to check sugar first thing in am and 2 hours after meals 1 Kit 4 Active OneTouch UltraSoft LancetsIndicatio ns:Type 2 diabetes mellitus with hemoglobin A1c goal of less than 8.0% (HCC) Use up to check sugar first thing in am and 2 hours after meals 100 Each 1 4 Active Insulin Glargine Solostar 100 UNIT/ML Subcutaneous Solution Pen-injector (Lantus SoloStar)Indicat ions:Type 2 diabetes mellitus with hemoglobin A1c goal of less than 8.0% (HCC) Inject 10 Units under the skin daily. Titrating dose - max dose 30 units daily. DX: E11.9 5 Each 3 4 Active Insulin Pen Needle 32G X 6 MMIndications:Ty pe 2 diabetes mellitus with hemoglobin A1c goal of less than 8.0% (HCC) Use to inject insulin once daily. 100 Each 3 4 Active metFORMIN HCl ER 500 MG Oral Tablet Extended Release 24 Hour (Glucophage XR)Indications:T ype 2 diabetes mellitus with hemoglobin A1c goal of less than 8.0% (HCC) Take 2 Tablets by mouth 2 times a day with morning and evening meals. Begin with one tablet twice daily for one week then increase to two tablets twice daily 360 Tablet 3 4 Active Colestipol HCl 1 GM Oral Tablet (Colestid) Take 1 Tablet by mouth in the morning. 30 Tablet 3 4 Active Cephalexin 500 MG Oral Capsule Take 1 Capsule by mouth in the morning and 1 Capsule before bedtime. Do all this for 7 days. 14 Capsule 4 05/22/20 24 Discontinued(End of Procedure) OneTouch Verio In Vitro Strip (Glucose Blood)Indication s:Type 2 diabetes mellitus with hemoglobin A1c goal of less than 8.0% ([facility]) Use up to check sugars first thing in am and 2 hours after meals 100 Strip 1 4 05/22/20 24 Discontinued Magnesium Oxide 400 MG Oral Tablet Take 1 Tablet by mouth in the morning and 1 Tablet before bedtime. 4 05/15/20 24 Discontinued(Pat ient preference/disco ntinuation) Magnesium Oxide (Elemental) 400 MG Oral Tablet Take 400 mg by mouth in the morning and 400 mg at noon and 400 mg in the evening. 4 05/22/20 24 Discontinued(Pat ient preference/disco ntinuation) Hospital, Clinic, or Other Facility Administered Medication Ordered Dose Route Frequency Start Date End Date Status Testosterone Cypionate (Depotestosterone Cypionate) 200 MG/ML inj 100 mgIndications:Hypogonadism, male 100 mg IM QMONTH 01/11/2021 Active documented as of this encounter (statuses as of 05/24/2024) Active Problems Problem Noted Date Diagnosed Date [...] as of this encounter (statuses as of 05/24/2024) Resolved Problems Problem Noted Date Diagnosed Date [...] as of this encounter (statuses as of 05/24/2024) Immunizations Name Administration Dates Next Due COVID-19 mRNA, LNP-s, No Pre serve, 2-Dose Series (HiWired) 06/29/2021,12/15/2020,11/24/2020 COVID-19, LNP-s, No Preserve , Deric-sucrose, Ages 12+ (HiWired) 02/04/2022 COVID-19, MRNA-LNP, 23-24, P F, 30 MCG/0.3 mL, 12 YRS AND ABOVE, IM (PFIZER-Comirnat) 10/10/2023 Covid-19, Mrna, Lnp-s, Pf, B ivalent, [...] money to buy more. Never true 08/23/20 Within the past 12 months, t he [...] (15 years old or older) No 07/10/20 Cognitive Status Response Date of Assessm ent Because of a physical, menta l, or emotional condition, do you have serious difficulty concentrating, remembering, or making decisions? (5 years old or older) No 07/10/2020 documented as of this encounter Miscellaneous Notes * Addendum Note - Lokesh Amin MD - 05/24/2024 1:37 PM EDTAddended by: LOKESH AMIN on: 05/24/2024 01:37 PM Modules accepted: Orders * Addendum Note - Lokesh Amin MD - 05/22/2024 9:54 AM EDTAddended by: LOKESH AMIN on: 05/22/2024 09:54 AM Modules accepted: Orders * Telephone Encounter - Elysia Arenas LPN - 05/21/2024 8:44 AM EDT Patient aware and verbalized understanding * Telephone Encounter - Lokesh Amin MD - 05/21/2024 8:33 AM EDT Please call. I heard from nephrology on his magnesium: Repeat levels today please! If any palpitations, dizziness would go to ER I hope diarrhea is better, please make sure he is tolerating/taking colestipol -Please switch mag oxide to slo mag (releases more slowly/may be better absorbed) 2 tabs twice a day -recommend high mag foods 3 servings daily > dark leafy greens, avocado, nuts, low fat dairy * Telephone Encounter - Cortney Fountain LPN - 05/14/2024 12:12 PM EDT My Spots[employer] message sent. * Telephone Encounter - Cortney Fountain LPN - 05/14/2024 11:59 AM EDT ----- Message from Lokesh Amin MD sent at 05/14/2024 8:21 AM EDT ----- Kidney function back to normal. Magnesium still low, is he taking magnesium supplements still? If so, would need to increase and ask nephrology to see, let me know how he is taking magnesium. Will also need to recheck level 1 week documented in this encounter Plan of Treatment Upcoming Encounters Date Type Department Care Team (Late st Contact Info) Description 05/28/2024 1:40 PM EDT Office Visit Podiatry [facility] [address] [facility] [place] [address] Luly Lance DPM 132 [facility] [place] [address] 05/31/2024 2:20 PM EDT Office Visit Nephrology, [facility] [address] [place] [address] Isa Long MD [address] [place] [address] [place] [address] 06/06/2024 1:30 PM EDT Office Visit Pharmacy, [facility] [place] [address] [place] [address] Pharmacist1, [facility] [address] [facility] [place] [address] 06/06/2024 2:00 PM EDT Nurse Only Ancillary [facility] [place] [address] [place] [address] Nurse, Int Med [address] [place] [address] 08/28/2024 1:30 PM EST Office Visit Gastroenterology, [facility] [address] [facility] [place] [address] Rain Medellin CRNP [address] [place] [address] 10/14/2024 3:00 PM EST Office Visit Cardiology, [facility] [address] [place] [address] Fabian Mejia PA-C [address] [place] [address] 11/14/2024 2:00 PM EST Office Visit General Internal Medicine [facility] 200 [place] [address] Lokesh Amin MD 200 [place] [address] 11/14/2024 3:45 PM EST Office Visit [facility] 200 [place] [address] Becky Gordon MD [address] [place] [address] [place] [address] 03/18/2025 10:45 AM EDT Office Visit Dermatology [facility] 200 [place] [address] Lokesh Mayen MD [address] [place] [address], [place] [address] Scheduled Orders Name Type Priority Associated Diagnoses Orde r Schedule MAGNESIUM Lab Routine Hypomagnesemia Expected: 05/24/2024 (Approximate), Expires: 05/24/2025 BASIC METABOLIC PANEL Lab Routine Hypomagnesemia Expected: 05/24/2024 (Approximate), Expires: 05/24/2025 Scheduled Procedures Name Priority Associated Diagnoses Date/Ti me COLONOSCOPY FLEXIBLE PROXIMAL DIAGNOSTIC Recall Colon cancer screening Scheduled Referrals Name Type Priority Associated Diagnoses Orde r Schedule NEPHROLOGY REFERRAL OP Referral Within 3 days (urgent) Hypomagnesemia Ordered: 05/22/2024 Health Maintenance Due Date Last Done Comments Adult Wellness Visit 07/07/2017 07/07/2016 COVID-19 Vaccine ( season) 2023 10/10/2023, 03/02/2023, 02/04/2022, Additional history exists Influenza Vaccine (FLU shot) (#1) 2024 06/26/2023, 06/09/2022, 06/17/2021, Additional history exists Diabetic Eye Exam 08/01/2024 08/01/2023, , 07/25/2005 Albumin/Creatinine Ratio 09/26/2024 09/26/2023, 07/27 HbA1c 10/16/2024 04/15/2024, 11/2023, 09/26/2023, Additional history exists GFR 11/22/2024 05/23/2024, 04/26, 05/13/2024, Additional history exists CKD PHOS USE SMARTSET 44535 03/27/2025 07/0 11/2023, 09/26/2023, 08/23/2022, Additional history exists Depression Screening 03/27/2025 03/27/2024 Diabetic Foot Exam 03/27/2025 03/27/2024, 02/21/2023 CKD HGB USE SMARTSET 07691 04/26/202504/26, 04/26/2024, 04/15/2024, Additional history exists DTap/Tdap [...] this encounter Medical Devices Implanted Type Area Flight Operations Dispatch Clerk Device Identifier Shelf Expiration Date Model / Serial / Lot Strattice [id number] (400 Units) - [id number] Implanted:Qty : 400 on 10/25/2011 [place] [facility] [place]domen LIFE CELL MISTY 12/23/2012 [id number] / / [id number] Mesh Prolit Hernia [id number] - [id number] Implanted:Qty : 1 on 08/14/2012 at [place] [facility] Left: Abdomen [employer] 12/24/2015 [id number] / / [id number] Suture Steel 6 B&S19 M654g - [id number] Implanted:Qty : 3 on 07/10/2020 by Ag Ballesteros MD at [place] [facility] N/A: Sternum JNJ : [employer] 02/22/2025 [id number] / / [id number] Valve Heart Aortic Epic 23mm - [id number] - [id number] Implanted:Qty : 1 on 07/10/2020 by Ag Ballesteros MD at [place] [facility] N/A: Aorta ST DOMINIK : CARDIOVASCULAR [id number] 03/22/2024 [id number] / [id number] / [id number] documented as of this encounter Results * MAGNESIUM (05/23/2024 3:34 PM EDT) [facility] Magnesium 2.2 1.5 - 2.6 mg/dL 05/24/2024 12:25 PM EDT LABORATORY [facility] Blood Venous blood specimen / Unknown Venipuncture / Unknown 05/23/2024 3:34 PM EDT 05/23/2024 3:34 PM EDT Lokesh Amin MD LAB BLOOD ORDERA BLES LABORATORY [facility] [address] [place] [address] * (ABNORMAL) BASIC METABOLIC PANEL (05/23/2024 3:34 PM EDT) [facility] BUN 14 6 - 20 mg/dL 05/24/2024 12:30 PM EDT LABORATORY [facility] Creatinine 1.4(H) 0.6 - 1.2 mg/dL 05/24/2024 12:30 PM EDT LABORATORY [facility] Estimated Glomerular Filtration Rate 54(L) >=60 mL/min 05/24/2024 12:30 PM EDT LABORATORY [facility] Comment:eGFR is calculated b ased on the CKD-EPI 2020 equation. Sodium 142 135 - 146 mmol/L 05/24/2024 12:30 PM EDT LABORATORY C Potassium 4.1 3.5 - 5.1 mmol/L 05/24/2024 12:30 PM EDT LABORATORY C Chloride 102 98 - 107 mmol/L 05/24/2024 12:30 PM EDT LABORATORY C CO2 27 22 - 32 mmol/L 05/24/2024 12:30 PM EDT LABORATORY C Anion Gap 13 7 - 15 mmol/L 05/24/2024 12:30 PM EDT LABORATORY [facility] Glucose 147(H) 70 - 120 mg/dL 05/24/2024 12:30 PM EDT LABORATORY [facility] Calcium 9.1 8.4 - 10.2 mg/dL 05/24/2024 12:30 PM EDT LABORATORY [facility] Blood Venous blood specimen / Unknown Venipuncture / Unknown 05/23/2024 3:34 PM EDT 05/23/2024 3:34 PM EDT Lokesh Amin MD LAB BLOOD ORDERA BLES LABORATORY [facility] [address] [place] [address] * (ABNORMAL) BASIC METABOLIC PANEL (05/21/2024 12:35 PM EDT) BUN 19 6 - 20 mg/dL 05/21/2024 2:40 PM EDT LABORATORY [place] 57-10 Creatinine 1.3(H) 0.6 - 1.2 mg/dL 05/21/2024 2:40 PM EDT LABORATORY [place] 57-10 Estimated Glomerular Filtration Rate 57(L) >=60 mL/min 05/21/2024 2:40 PM EDT LABORATORY [place] 57-10 Comment:eGFR is calculated b ased on the CKD-EPI 2020 equation. Sodium 142 135 - 146 mmol/L 05/21/2024 2:40 PM EDT LABORATORY [place] 57-10 Potassium 3.8 3.5 - 5.1 mmol/L 05/21/2024 2:40 PM EDT LABORATORY [place] 57-10 Chloride 102 98 - 107 mmol/L 05/21/2024 2:40 PM EDT LABORATORY [place] 57-10 CO2 27 22 - 32 mmol/L 05/21/2024 2:40 PM EDT LABORATORY [place] 57-10 Anion Gap 13 7 - 15 mmol/L 05/21/2024 2:40 PM EDT LABORATORY [place] 57-10 Glucose 135(H) 70 - 120 mg/dL 05/21/2024 2:40 PM EDT LABORATORY [place] 57-10 Calcium 9.3 8.4 - 10.2 mg/dL 05/21/2024 2:40 PM EDT LABORATORY [place] 57-10 Blood Venous blood specimen / Unknown Venipuncture / Unknown 05/21/2024 12:35 PM EDT 05/21/2024 12:35 PM EDT Lokesh Amin MD LAB BLOOD ORDERA BLES LABORATORY [place] 57-10 [address] [place] [address] documented in this encounter Visit Diagnoses Diagnosis Hypomagnesemia- Primary Disorders of magnesium metabolism documented in this [...] and were consensually agreed upon. Care Teams Phone Technician Relationship Specialty Start Date End Date Lokesh Amin MD [address] [place] [address] PCP - General Internal Medicine 07/22/21 documented as of this encounter
--- OUTSIDE RECORDS SUMMARY | 2024-07-19 11:35 | External Medical Summary | Summary of Care ---
Author Name Unknown Organization [facility] Address [address] [place] [address] Phone [phone] Care Team Providers Care Lurer Name Role Phone Lokesh Amin MD Primary Care Provider + Reason for Referral * Evaluate & Treat - Unlimited Visits (Within 10 days (routine)) - Authorized Specialty Diagnoses / Procedures Referred By Gladys vazquez Referred To Contact Podiatry Diagnoses Foot lesion Lokesh Amin MD [facility] [place] [address] Referral ID Status Reason Start Date Expiration Date Visits Requested Visits Authorized [id number] Authorized Specialty Services Required 05/22/[phone] [...] Office Visit General Internal Medicine [facility] [place] [address] [place] [address] Lokesh Amin MD [address] [place] [address] Foot lesion*; Hypomagnesemia; Loose stools Allergies Active [...] mRNA, LNP-s, No Pre serve, 2-Dose Series (Qoiza) 06/29/2021,12/15/2020,11/24/2020 COVID-19, LNP-s, No Preserve , Deric-sucrose, [...] regurgitation Heart failure, diastolic, due to HTN ([facility]) S/P AVR (aortic valve replacement) Left carotid stenosis Stage 3a chronic kidney disease Cardiac pacemaker in situ PAF (paroxysmal atrial fibrillation) ([facility]) Type 2 diabetes mellitus with hemoglobin A1c goal of less than 8.0% ([facility]) Chronic diastolic congestive heart failure (HCC) Basal [...] Silver 50+Men Oral Tablet Take by mouth. 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 Bowel obstruction ([facility]) Cardiac pacemaker in situ 11/19/2020 Diverticulitis of colon Glaucoma 01/30/2007 dr rivas HTN, goal below 140/90 12/11/2018 Impotence of organic origin Left carotid stenosis 08/18/2020 PAF (paroxysmal atrial fibrillation) ([facility]) 02/01/2022 Panniculitis 03/07/2012 Type 2 diabetes mellitus with hemoglobin A1c goal of less than 8.0% ([facility]) 08/24/2022 Past Surgical History: Procedure Laterality Date COLONOSCOPY 11/18/2005 Normal repeat in 10 years COLONOSCOPY, DIAGNOSTIC (RECTUM) 01/21/2016 diverticulosis, repeat 10 yrs/COLONOSCOPY FLEXIBLE PROXIMAL DIAGNOSTIC performed by Steve Bahena MD at [facility] COLONOSCOPY, DIAGNOSTIC (RECTUM) 05/19/2023 dvierticulosis / COLONOSCOPY FLEXIBLE PROXIMAL DIAGNOSTIC performed by Freddy Arthur MD at [facility] CYSTOSCOPY 02/26/2013 CYSTOSCOPY 08/05/2014 CYSTOSCOPY 12/26/2014 CYSTOSCOPY/DILATE BLADDER N/A 01/27/2015 CYSTOURETHROSCOPY DILATION BLADDER GENERAL ANESTHESIA performed by Colt North MD at OR [facility] CYSTOSCOPY/TREAT MINOR LESION(S) N/A 01/27/2015 CYSTOURETHROSCOPY WITH FULGURATION MINOR BLADDER TUMOR performed by Colt North MD at OR [facility] IMPLANT MESH W/ ABD HERNIA REPR/DEBRIDE 08/14/2012 IMPLANTATION MESH WITH INCISIONAL/VENTRAL HERNIA performed by Adryan Kunz MD at [facility] MUSCLE-SKIN FLAP, TRUNK 10/18/2011 MUSCLE MYOCUTANEOUS OR FASCIOCUTANEOUS FLAP TRUNK performed by NANCY GARCIA at [facility] MUSCLE-SKIN FLAP, TRUNK 10/25/2011 MUSCLE MYOCUTANEOUS OR FASCIOCUTANEOUS FLAP TRUNK performed by NANCY GARCIA at [place] [facility] PARTIAL REMOVAL OF COLON REMOVAL OF APPENDIX REMOVAL OF PROSTATE (TURP) 01/27/2015 TRANSURETHRAL RESECTION PROSTATE ELECTROSURGICAL performed by Colt North MD at [facility] REMOVAL OF TONSILS, UNDER AGE 12 REMOVE GALLBLADDER REPAIR INITIAL INCISIONAL OR VENTRAL HERNIA; REDUCIBLE 04/25/2011 REPAIR INITIAL INCISIONAL /VENTRAL HERNIA REDUCIBLE performed by JN CHRISTINE at [place] [facility]not performed REPAIR INITIAL INCISIONAL OR VENTRAL HERNIA; REDUCIBLE 09/22/2011 REPAIR INITIAL INCISIONAL /VENTRAL HERNIA REDUCIBLE performed by NJ CHRISTINE at [facility] REPAIR INITIAL INCISIONAL OR VENTRAL HERNIA; REDUCIBLE 10/25/2011 REPAIR INITIAL INCISIONAL /VENTRAL HERNIA REDUCIBLE performed by NJ CHRISTINE at [facility] REPAIR INITIAL INCISIONAL OR VENTRAL HERNIA; REDUCIBLE 08/14/2012 REPAIR INITIAL INCISIONAL /VENTRAL HERNIA REDUCIBLE performed by Adryan Kunz MD at [facility] REPLACEMENT AORTIC VALVE, BYPASS WITH PROSTHETIC VALVE N/A 07/10/2020 REPLACEMENT AORTIC VALVE, BYPASS WITH PROSTHETIC VALVE performed by Ag Ballesteros MD at [facility] TOTAL HIP REPLACEMENT & PROSTHESIS 11/04/2013 Right [...] 05/28/2024 1:40 PM EDT Office Visit Podiatry [facility] [address] [place] [address] Luly Lance DPM [address] [place] [address] 06/06/2024 1:30 PM EDT Office Visit Pharmacy, [facility] 200 [facility] [place] [address] Pharmacist1, [facility] [address] [facility] [place] [address] 06/06/2024 2:00 PM EDT Nurse Only Ancillary [facility] [address] [facility] [place] [address] Nurse, Int Med 200 [facility] [place] [address] 08/28/2024 1:30 PM EST [facility] [address] [place] [address] Rain Medellin CRNP [address] [place] [address] 10/14/2024 3:00 PM EST Office Visit Cardiology, [facility] [address] [place] [address] Fabian Mejia PA-Gregory [address] [place] [address] 11/14/2024 2:00 PM EST Office Visit General Internal Medicine [facility] [address] [facility] [place] [address] Lokesh Amin MD 200 [place] [address] 11/14/2024 3:45 PM EST Office Visit [facility] Surgery [facility] [address] [place] [address] Becky Gordon MD [address] [place] [address] 03/18/2025 10:45 AM EDT Office Visit Dermatology [facility] [address] [place] [address] Lokesh Mayen MD [address] [place] [address] Scheduled Procedures Name Priority Associated Diagnoses Date/Ti [...] 070 11/2023, 09/26/2023, Additional history exists GFR 11/21/2024 05/21/2024, 04/25, 05/06/2024, Additional history exists CKD PHOS USE SMARTSET 71631 03/27/2025 07/0 11/2023, 09/26/2023, 08/23/2022, Additional history exists Depression Screening 03/27/2025 03/27/2024 Diabetic Foot Exam 03/27/2025 03/27/2024, 02/21/2023 CKD HGB USE SMARTSET 05514 04/26/202504/26, 04/26/2024, 04/15/2024, Additional history exists DTap/Tdap [...] this encounter Medical Devices Implanted Type Area Event Mgr Device Identifier Shelf Expiration Date Model / Serial / Lot Strattice [id number] (400 Units) - [id number] Implanted:Qty : 400 on 10/25/2011 at [place] [facility] Abdomen LIFE CELL MISTY 12/23/2012 [id number] / / [id number] Mesh Prolit Hernia [id number] - [id number] Implanted:Qty : 1 on 08/14/2012 at [place] [facility] Left: Abdomen [employer] 12/24/2015 [id number] / / [id number] Suture Steel 6 B&S19 M654g - [id number] Implanted:Qty : 3 on 07/10/2020 by Ag Ballesteros MD at [place] [facility] N/A: Sternum JNJ : [employer] 02/22/2025 M654G / / [id number] Valve Heart Aortic Epic 23mm - [id number] - [id number] Implanted:Qty : 1 on 07/10/2020 by Ag Ballesteros MD at [place] [facility] N/A: Aorta ST DOMINIK : CARDIOVASCULAR [id number] 03/22/2024 [id number]- 00 / [id number] / [id number] documented as of this encounter Visit Diagnoses [...] and were consensually agreed upon. Care Teams Lurer Relationship Specialty Start Date End Date Lokesh Amin MD [address] [place] [address], [place] [address] PCP - General Internal Medicine 07/22/21 documented as of this encounter"
--- OUTSIDE RECORDS SUMMARY | 2024-07-19 11:35 | External Medical Summary | Summary of Care ---
Author Name Unknown Organization [facility] Address [address] [place] [address] Phone [phone] Care Team Providers Care Software Implementation Specialist Name Role Phone Lokesh Amin MD Primary Care Provider + Encounter Details Date Type Department Care Team (Late st Contact Info) Description 05/22/2024 Orders Only Hematology/Oncology Treatment, [place] [address] [place] [address] Lokesh Amin MD 200 [place] [address] Allergies Active Allergy Reactions Criticality Noted Date [...] hemoglobin A1c goal of less than 8.0% ([facility]) Use up to check sugar first thing [...] the morning. 30 Tablet 3 05/08/2024 Active Magnesium Oxide (Elemental) 400 MG Oral Tablet Take 400 mg by mouth in the morning and 400 mg at noon and 400 mg in the evening. 05/15/2024 Active OneTouch Verio In Vitro Strip (Glucose Blood)Indications:T ype 2 diabetes mellitus with hemoglobin A1c goal of less than 8.0% (HCC) USE UP TO CHECK SUGARS FIRST THING IN AM AND 2 HOURS AFTER MEALS 100 Strip 1 05/22/2024 Active Hospital, Clinic, or Other Facility [...] mRNA, LNP-s, No Pre serve, 2-Dose Series (Scratch Hard) 06/29/2021,12/15/2020,11/24/2020 COVID-19, LNP-s, No Preserve , Deric-sucrose, Ages 12+ (Pfizer) 02/04/2022 COVID-19, MRNA-LNP, 23-24, P F, 30 MCG/0.3 mL, 12 YRS AND ABOVE, IM (VividWorks-Comirnat) 10/10/2023 Covid-19, Mrna, Lnp-s, Pf, B ivalent, [...] PM EDT Office Visit General Internal Medicine [facility] [place] [address] [place] [address] Lokesh Amin MD [address] [place] [address] 05/23/2024 11:00 AM EDT Hem/Onc Treatment Hematology/Oncology Treatment, [place] [address] [place] [phone] Jennifer, Chair [address] [place] [address] [place] [address] 06/06/2024 1:30 PM EDT Office Visit [facility], [facility] [place] [address] [place] [address] [address] Pharmacist1, [facility] [address] [place] [address] 06/06/2024 2:00 PM EDT Nurse Only Ancillary [facility] [place] [address] [place] [address] Nurse, Int Med [address] [facility] [place] [address] 08/28/2024 1:30 PM EST Office Visit Gastroenterology, [facility] [address] [facility] [place] [address] Rain Medellin CRNP [address] [place] [address] 10/14/2024 3:00 PM EST Office Visit Cardiology, [facility] [address] [place] [address] Fabian Mejia PA-C [address] [place] [address] 11/14/2024 2:00 PM EST Office Visit General Internal Medicine [facility] [address] [facility] [place] [address] Lokesh Amin MD [address] [place] [address] Dr SANCHE[place] [address] 11/14/2024 3:45 PM EST Office Visit MOHS Surgery [facility] 200 [place] [address] Becky Gordon MD [address] [place] [address] [place] [address] 03/18/2025 10:45 AM EDT Office Visit Dermatology [facility] [address] [facility] [place] [address] Lokesh Mayen MD [address] [place] [address] [place] [address] Scheduled Procedures Name Priority Associated Diagnoses Date/Ti [...] Additional history exists CKD PHOS USE SMARTSET 21658 03/27/2025 07/0 11/2023, 09/26/2023, 08/23/2022, Additional history exists Depression Screening 03/27/2025 03/27/2024 Diabetic Foot Exam 03/27/2025 03/27/2024, 02/21/2023 CKD HGB USE SMARTSET 76442 04/26/202504/26, 04/26/2024, 04/15/2024, Additional history exists DTap/Tdap [...] this encounter Medical Devices Implanted Type Area Oyster Grower Device Identifier Shelf Expiration Date Model / Serial / Lot Strattice [id number] (400 Units) - [id number] Implanted:Qty : 400 on 10/25/2011 at OR [facility] Abdomen LIFE CELL MISTY 12/23/2012 [id number] / / [id number] Mesh Prolit Hernia [id number] - [id number] Implanted:Qty : 1 on 08/14/2012 at OR [facility] Left: Abdomen [employer] M[employer] 12/24/2015 [id number] / / [id number] Suture Steel 6 B&S19 M654g - [id number] Implanted:Qty : 3 on 07/10/2020 by Ag Ballesteros MD at OR [facility] N/A: Sternum JNJ : [employer] 02/22/2025 M654G / / [id number] Valve Heart Aortic Epic 23mm - [id number] - [id number] Implanted:Qty : 1 on 07/10/2020 by Ag Ballesteros MD at OR [facility] N/A: Aorta ST DOMINIK : CARDIOVASCULAR [id number] 03/22/2024 [id number] 00 / [id number] / [id number] documented as of this encounter Advance Directives [...] were consensually agreed upon. Care Teams Software Implementation Specialist Relationship Specialty Start Date End Date Lokesh Amin MD 200 [facility], [place] [address] PCP - General Internal Medicine 07/22/21 documented as of this encounter
--- OUTSIDE RECORDS SUMMARY | 2024-07-19 11:35 | External Medical Summary | Summary of Care ---
Author Name Unknown Organization [facility] Address [address] [place] [address] Phone [phone] Care Team Providers Care Creeler Name Role Phone Lokesh Amin MD Primary Care Provider + Reason for Visit * Reason Onset Date Comments Appointment 05/22/2024 Encounter Details Date Type Department Care Team (Late st Contact Info) Description 05/22/2024 Telephone General Internal Medicine [facility] 200 [place] [address] Lokesh Amin MD 200 [place] [address] Appointment Allergies Active Allergy Reactions Criticality Noted Date [...] hemoglobin A1c goal of less than 8.0% ([facility]) Inject 10 Units under the skin daily. Titrating dose - max dose 30 units daily. DX: E11.9 5 Each 3 04/04/2024 Active Insulin Pen Needle 32G X 6 MMIndications:Type 2 diabetes mellitus with hemoglobin A1c goal of less than 8.0% ([facility]) Use to inject insulin once daily. 100 Each 3 04/04/2024 Active metFORMIN HCl ER 500 MG Oral Tablet Extended Release 24 Hour (Glucophage XR)Indications:Type 2 diabetes mellitus with hemoglobin A1c goal of less than 8.0% ([facility]) Take 2 Tablets by mouth 2 times [...] hemoglobin A1c goal of less than 8.0% ([facility]) USE UP TO CHECK SUGARS FIRST THING [...] mRNA, LNP-s, No Pre serve, 2-Dose Series (MDdatacor) 06/29/2021,12/15/2020,11/24/2020 COVID-19, LNP-s, No Preserve , Deric-sucrose, Ages 12+ (Pfizer) 02/04/2022 COVID-19, MRNA-LNP, 23-24, P F, 30 MCG/0.3 mL, 12 YRS AND ABOVE, IM (CoderBuddy-Comirnaty) 10/10/2023 Covid-19, Mrna, Lnp-s, Pf, B ivalent, [...] encounter Miscellaneous Notes * Telephone Encounter - Sunshine Perales OSA - 05/22/2024 2:08 PM EDT Request Summary [[id number]] Procedure: NEPHROLOGY REFERRAL OP Status: Needs Scheduling (Nyqh-zl-Tiguxmz Pending) Requested appt date: Authorizing: Lokesh Amin MD in [facility] POD[facility] Referral: [id number] (Authorized) Priority: Within 3 days (urgent) Diagnosis: Hypomagnesemia [E83.42] Order Specific Questions Referral Priority Within 3 days (urgent) Where should this appointment be scheduled? [facility] What condition is this patient being seen for? Electrolyte Problem Request History Action Date and Time User Details Request Created 05/22/2024 09:53 Lokesh Amin MD Workqueue Summary Current Workqueues Entry Current Tab NEPHROLOGY RFL ORDERS [4243] 05/22/2024 09:53 Active Details documented in this encounter Plan of Treatment Upcoming Encounters Date Type Department Care Team (Late st Contact Info) Description 05/28/2024 1:40 PM EDT Office Visit Podiatry [address] [place] [address] Luly Lance DPM [address] [facility] [address] 06/06/2024 1:30 PM EDT Office Visit Pharmacy, [facility] [address] [place] [address] Pharmacist1, [facility] [address] [facility] [place] [address] 06/06/2024 2:00 PM EDT Nurse Only Ancillary [facility] 200 [facility] [place] [address] Nurse, Int Med 200 [facility] [address] [facility] [place] [address] 08/28/2024 1:30 PM EST Office Visit Gastroenterology, [facility] [address] [facility] [address] Rain Medellin CRNP [address] [place] [address] 10/14/2024 3:00 PM EST Office Visit Cardiology, [facility] [place] [address] Fabian Mejia PAFrannie [address] [place] [address] 11/14/2024 2:00 PM EST Office Visit General Internal Medicine [facility] 200 [facility] [place] [address] Lokesh Amin MD 200 [facility] [place] [address] 11/14/2024 3:45 PM EST Office Visit MOHS Surgery [facility] [address] [place] [address] Becky Gordon MD [address] [place] [address] 03/18/2025 10:45 AM EDT Office Visit Dermatology [place] 200 [facility] [place] [address] Lokesh Mayen MD 200 [facility] [place] [address] Scheduled Procedures Name Priority Associated Diagnoses Date/Ti [...] Additional history exists CKD PHOS USE SMARTSET 04798 03/27/2025 07/0 11/2023, 09/26/2023, 08/23/2022, Additional history exists Depression Screening 03/27/2025 03/27/2024 Diabetic Foot Exam 03/27/2025 03/27/2024, 02/21/2023 CKD HGB USE SMARTSET 48687 04/26/202504/26, 04/26/2024, 04/15/2024, Additional history exists DTap/Tdap [...] this encounter Medical Devices Implanted Type Area Client Experience Specialist Device Identifier Shelf Expiration Date Model / Serial / Lot Strattice [id number] (400 Units) - [id number] Implanted:Qty : 400 on 10/25/2011 at OR [facility] Abdomen LIFE CELL MISTY 12/23/2012 [id number] / / [id number] Mesh Prolit Hernia [id number] - [id number] Implanted:Qty : 1 on 08/14/2012 at OR [facility] Left: Abdomen [employer] M[employer] 12/24/2015 [id number] / / [id number] Suture Steel 6 B&S19 M654g - [id number] Implanted:Qty : 3 on 07/10/2020 by Ag Ballesteros MD at OR [facility] N/A: Sternum JNJ : [employer] 02/22/2025 M654G / / QGBABE Valve Heart Aortic Epic 23mm - [id number] - [id number] Implanted:Qty : 1 on 07/10/2020 by Ag Ballesteros MD at OR [facility] N/A: Aorta ST DOMINIK : CARDIOVASCULAR [id number] 03/22/2024 [id number] 00 / [id number] / [id number] documented as of this encounter Advance Directives [...] and were consensually agreed upon. Care Teams Creeler Relationship Specialty Start Date End Date Lokesh Amin MD [address] [place] [address] PCP - General Internal Medicine 07/22/21 documented as of this encounter
--- OUTSIDE RECORDS SUMMARY | 2024-07-19 11:35 | External Medical Summary | Summary of Care ---
Author Name Unknown Organization [facility] Address [address] [place] [address] Phone [phone] Care Team Providers Care Business Support Name Role Phone Lokesh Nicole MD Primary Care Provider + Reason for Visit * Reason Onset Date Comments Follow Up 05/22/2024 Encounter Details Date Type Department Care Team (Late st Contact Info) Description 05/22/2024 Telephone NephrologyYan[facility] [address] [place] [address] Diane Montejo MD [address] [place] [address] Follow Up Allergies Active Allergy Reactions Criticality Noted Date [...] meals 1 Kit 04/04/2024 Active OneTouch UltraSoft LancetsIndication s:Type 2 diabetes [...] than 8.0% (HCC) Use up to check sugars first thing in am and 2 hours after meals 100 Strip 1 04/04/2024 05/22/20 24 Discontinued Hospital, Clinic, or Other Facility Administered Medication Ordered Dose Route Frequency Start Date End Date Status Testosterone Cypionate (Depotestosterone Cypionate) 200 MG/ML inj 100 mgIndications:Hypogonadism, male 100 mg IM QMONTH 01/11/2021 Active documented as of this encounter (statuses as of 05/22/2024) Active Problems Problem Noted Date Diagnosed Date Basal cell carcinoma (BCC) o f skin [...] mRNA, LNP-s, No Pre serve, 2-Dose Series (Meebler) 06/29/2021,12/15/2020,11/24/2020 COVID-19, LNP-s, No Preserve , Deric-sucrose, Ages 12+ (Pfizer) 02/04/2022 COVID-19, MRNA-LNP, 23-24, P F, 30 MCG/0.3 mL, 12 YRS AND ABOVE, IM (Sequel Pharmaceuticals-ComirnatMapMyIndia) 10/10/2023 Covid-19, Mrna, Lnp-s, Pf, B ivalent, [...] Miscellaneous Notes * Telephone Encounter - Lokesh Nicole MD - 05/22/2024 12:40 PM EDT I placed order for 3 grams magnesium, thank you Dr. Montejo and Nurse Sarai for all your help! * Addendum Note - Lokesh Nicole MD - 05/22/2024 12:40 PM EDTAddended by: LOKESH NICOLE on: 05/22/2024 12:40 PM Modules accepted: Orders * Telephone Encounter - Sarai Pan LPN - 05/22/2024 11:16 AM EDT Supportive care plan sent to DR Montejo and Dr Nicole * Telephone Encounter - Sarai Pan LPN - 05/22/2024 9:55 AM EDT ----- Message from Lokesh Nicole MD sent at 05/22/2024 9:50 AM EDT ----- Regarding: RE: magnesium Yes, thank you, happy to sign orders if they can be pended, help set up here, I would really appreciate the aid. I can talk to him in person today, seeing at 1:40 on my schedule Alberto ----- Message ----- From: Diane Montejo MD Sent: 05/22/2024 9:46 AM EDT To: Lokesh Nicole MD; # Subject: RE: magnesium Recommend IV repletion 3 gm TODAY and recheck in AM. Super important he takes po mag and mag rich foods AND that BM slow down. IV alone will not solve this just temporize. If we can't improve this low threshold for ER. Fine w/ urgent referral for me or my partners. First choice [facility] (can't remember if they do it or not but believe they do); else [facility]. Copying my nurse who can help facilitate b/c we do this often but will have you sign the orders forinfusion if that's OK. Thanks Alberto!! Neph nurses, see above >> pls coordinate d/w Dr Alejo ----- Message ----- From: Lokesh Nicole MD Sent: 05/22/2024 8:48 AM EDT To: Diane Montejo MD Subject: magnesium Diane Hi. I hope all is well. We did repeat labs on Chang, mag still low at 1.1, I am going to refer to nephrology. Will see him today, if feeling well and didn't take slo-mag for a couple days (maybe still on mag oxide I will check), should we replete with slo-mag or give IV, if IV how much and can [facility] dothis at [facility]? Thanks! Alberto documented in this encounter Plan of Treatment Upcoming Encounters Date Type Department Care Team (Late st Contact Info) Description 05/22/2024 1:40 PM EDT Office Visit General Internal Medicine [address] [place] [address] [place] [address] Lokesh Nicole MD 200 [place] [address] 06/06/2024 1:30 PM EDT Office Visit Pharmacy, [facility] [address] [place] [address] Pharmacist1, [facility] 200 [facility] [place], [place] [address] 06/06/2024 2:00 PM EDT Nurse Only Ancillary [facility] 200 [facility] [place], [place] [address] Nurse, Int Med 200 [facility] [place], [place] [address] 08/28/2024 1:30 PM EST Office Visit Gastroenterology, [facility] 132 [facility] [place] [address] Rain Medellin CRNP 132 [place] [address] 10/14/2024 3:00 PM EST Office Visit Cardiology, [facility] 132 [facility] [address] Fabian Mejia PA-C [address] [place] [address] 11/14/2024 2:00 PM EST Office Visit General Internal Medicine [facility] 200 [place] [address] Lokesh Nicole MD 200 [place] [address] 11/14/2024 3:45 PM EST Office Visit MOHS Surgery [facility] [address] [place] [address] Becky Gordon MD 200 [facility] [place], [place] [address] 03/18/2025 10:45 AM EDT Office Visit Dermatology [place] [place] [address] [place], [place] [address] Lokesh Mayen MD [address] [place] [address] Scheduled Procedures Name Priority Associated Diagnoses Date/Ti [...] Additional history exists CKD PHOS USE SMARTSET 50311 03/27/2025 07/0 11/2023, 09/26/2023, 08/23/2022, Additional history exists Depression Screening 03/27/2025 03/27/2024 Diabetic Foot Exam 03/27/2025 03/27/2024, 02/21/2023 CKD HGB USE SMARTSET 84246 04/26/202504/26, 04/26/2024, 04/15/2024, Additional history exists DTap/Tdap [...] this encounter Medical Devices Implanted Type Area Warehouse Administrative Assistant Device Identifier Shelf Expiration Date Model / Serial / Lot Strattice [id number] (400 Units) - [id number] Implanted:Qty : 400 on 10/25/2011 at [place] [facility] Abdomen LIFE CELL MISTY 12/23/[id number] / / [id number] Mesh Prolit Hernia [id number] - [id number] Implanted:Qty : 1 on 08/14/2012 at [facility] Left: Abdomen [employer] MISTY 12/24/2015 [id number] / / [id number] Suture Steel 6 B&S19 M654g - [id number] Implanted:Qty : 3 on 07/10/2020 by Ag Ballesteros MD at [place] [facility] N/A: Sternum JNJ : [employer] 02/22/2025 M654G / / QGBABE Valve Heart Aortic Epic 23mm - [id number] - [id number] Implanted:Qty : 1 on 07/10/2020 by Ag Ballseteros MD at [place] [facility] N/A: Aorta ST DOMINIK : CARDIOVASCULAR [id number] 03/22/2024 [id number]- 00 / [id number] / [id number] documented as of this encounter Visit Diagnoses Diagnosis Hypomagnesemia- Primary [...] and were consensually agreed upon. Care Teams Business Support Relationship Specialty Start Date End Date Lokesh Nicole MD [address] [place] [address] PCP - General Internal Medicine 07/22/21 documented as of this encounter
--- OUTSIDE RECORDS SUMMARY | 2024-07-19 11:35 | External Medical Summary | Summary of Care ---
Author Name Unknown Organization [facility] Address [address] [place] [address] Phone [phone] Care Team Providers Care Engineering Systems Analyst Name Role Phone Lokesh Nicole MD Primary Care Provider + Reason for Visit * Reason Onset Date Comments Follow Up 05/22/2024 Encounter Details Date Type Department Care Team (Late st Contact Info) Description 05/22/2024 Telephone NephrologyYaneth 200 [place] [address] Diane Montejo MD 200 [place] [address] Follow Up Allergies Active Allergy Reactions Criticality [...] mRNA, LNP-s, No Pre serve, 2-Dose Series (TrulySocial) 06/29/2021,12/15/2020,11/24/2020 COVID-19, LNP-s, No Preserve , Deric-sucrose, Ages 12+ (Pfizer) 02/04/2022 COVID-19, MRNA-LNP, 23-24, P F, 30 MCG/0.3 mL, 12 YRS AND ABOVE, IM (Sentient-ComirnatEducerus) 10/10/2023 Covid-19, Mrna, Lnp-s, Pf, B ivalent, [...] Miscellaneous Notes * Addendum Note - Lokesh Nicole MD [...] how much and can [facility] d[facility]is at [facility]? Thanks! Alberto documented in this encounter Plan of Treatment Upcoming Encounters Date Type Department Care Team (Late st Contact Info) Description 05/22/2024 1:40 PM EDT Office Visit General Internal Medicine [place] [place] [address] [place] [address] Lokesh Nicole MD [address] [id number] 06/06/2024 1:30 PM EDT Office Visit Pharmacy, [place] [address] [place] [address] [address] [address] Pharmacist1, [facility] [address] [place] [address] 06/06/2024 2:00 PM EDT Nurse Only Ancillary [facility] 200 [facility] [place] [address] Nurse, Int Med 200 [facility] [place] [address] 08/28/2024 1:30 PM EST Office Visit Gastroenterology, [facility] [address] [place] [address] Rain Medellin CRNP [address] [place] [address] 10/14/2024 3:00 PM EST Office Visit Cardiology, [facility] [address] [place] [address] Fabian Mejia PAParishC [address] [place] [address] 11/14/2024 2:00 PM EST Office Visit General Internal Medicine [facility] 200 [facility] [place] [address] Lokesh Nicole MD 200 [facility] [place] [address] 11/14/2024 3:45 PM EST Office Visit MOHS Surgery [facility] 200 [facility], [place] [address] Becky Gordon MD 200 [facility] [place], [place] [address] 03/18/2025 10:45 AM EDT Office Visit Dermatology [facility] 200 [facility] [place] [address] Lokesh Mayen MD 200 [facility] [place] [address] Scheduled Procedures Name Priority Associated Diagnoses Date/Ti [...] Additional history exists CKD PHOS USE SMARTSET 80245 03/27/2025 07/0 11/2023, 09/26/2023, 08/23/2022, Additional history exists Depression Screening 03/27/2025 03/27/2024 Diabetic Foot Exam 03/27/2025 03/27/2024, 02/21/2023 CKD HGB USE SMARTSET 40363 04/26/202504/26, 04/26/2024, 04/15/2024, Additional history exists DTap/Tdap [...] this encounter Medical Devices Implanted Type Area Order Entry Technician Device Identifier Shelf Expiration Date Model / Serial / Lot Korey [id number] (400 Units) - [id number] Implanted:Qty : 400 on 10/25/2011 at OR [facility] Abdomen LIFE CELL MISTY 12/23/2012 / / [id number] Mesh Prolit Hernia [id number] - [id number] Implanted:Qty : 1 on 08/14/2012 at OR [facility] Left: Abdomen [employer] M[employer] 12/24/2015 [id number] / / [id number] Suture Steel 6 B&S19 M654g - [id number] Implanted:Qty : 3 on 07/10/2020 by Ag Ballesteros MD at OR [facility] N/A: Sternum JNJ : [employer] 02/22/2025 M654G / / QGBABE Valve Heart Aortic Epic 23mm - [id number] - [id number] Implanted:Qty : 1 on 07/10/2020 by Ag Ballesteros MD at OR [facility] N/A: Aorta ST DOMINIK : CARDIOVASCULAR [id number] 03/22/2024 [id number]- 00 / [id number] / [id number] documented as of this encounter Visit Diagnoses [...] and were consensually agreed upon. Care Teams Engineering Systems Analyst Relationship Specialty Start Date End Date Lokesh Nicole MD 200 [place] [address] PCP - General Internal Medicine 07/22/21 documented as of this encounter
--- OUTSIDE RECORDS SUMMARY | 2024-07-19 11:35 | External Medical Summary | Summary of Care ---
Author Name Unknown Organization [facility] Address [address] [place] [address] Phone [phone] Care Team Providers Care Dispatcher Clerk Name Role Phone Lokesh Amin MD Primary Care Provider + Reason for Visit * Reason Onset Date Comments Follow Up 05/22/2024 Encounter Details Date Type Department Care Team (Late st Contact Info) Description 05/22/2024 Telephone NephrologyYaneth 200 [place] [address] Diane Montejo MD 200 [place] [address] Follow Up Allergies Active Allergy Reactions Criticality [...] mRNA, LNP-s, No Pre serve, 2-Dose Series (Oxynade) 06/29/2021,12/15/2020,11/24/2020 COVID-19, LNP-s, No Preserve , Deric-sucrose, Ages 12+ (Pfizer) 02/04/2022 COVID-19, MRNA-LNP, 23-24, P F, 30 MCG/0.3 mL, 12 YRS AND ABOVE, IM (Autonet Mobile-ComirnatZumper) 10/10/2023 Covid-19, Mrna, Lnp-s, Pf, B ivalent, [...] plan sent to DR Montejo and Dr Amin * Telephone Encounter - Sarai Pan LPN - 05/22/2024 9:55 AM EDT ----- Message from Lokesh Amin MD sent at 05/22/2024 9:50 AM EDT ----- Regarding: RE: magnesium Yes, thank you, happy to sign orders if they can be pended, help set up here, I would really appreciate the aid. I can talk to him in person today, seeing at 1:40 on my schedule Alberto ----- Message ----- From: Diane Montejo MD Sent: 05/22/2024 9:46 AM EDT To: Lokesh Amin MD; # Subject: RE: magnesium Recommend IV [...] Dr Alejo ----- Message ----- From: Lokesh Amin MD Sent: 05/22/2024 8:48 AM EDT To: [...] how much and can MTU dothis at [facility]? Thanks! Alberto documented in this encounter Plan of Treatment Upcoming Encounters Date Type Department Care Team (Late st Contact Info) Description 05/22/2024 1:40 PM EDT Office Visit General Internal Medicine [facility] [place] [address] [place] [address] [address] Lokesh Amin MD [address] [place] [address] 06/06/2024 1:30 PM EDT Office Visit Pharmacy, [facility] [place] [address] [place] [address] Pharmacist1, [facility] [address] [place] [address] 06/06/2024 2:00 PM EDT Nurse Only Ancillary Yan[facility] [place] [address] [place] [address] Nurse, Int Med [address] [place] [address] 08/28/2024 1:30 PM EST Office Visit Gastroenterology, [facility] [address] [place] [address] Rain Medellin CRNP [address] [place] [address] 10/14/2024 3:00 PM EST Office Visit Cardiology, [facility] [address] [place] [address] Fabian Mejia PA-C [address] [place] [address] 11/14/2024 2:00 PM EST Office Visit General Internal Medicine [address] [place] [address] Lokesh Amin MD [address] [place] [address] [place] [address] 11/14/2024 3:45 PM EST Office Visit MO[facility] Surgery [facility] 200 [place] [address] Becky Gordon MD [address] [place] [address] [place] [address] 03/18/2025 10:45 AM EDT Office Visit Dermatology [address] [place] [address] Lokesh Mayen MD [address] [place] [address] [place] [address] Scheduled Procedures Name Priority Associated Diagnoses Date/Ti me COLONOSCOPY FLEXIBLE PROXIMAL DIAGNOSTIC Recall Colon cancer screening Health Maintenance Due Date Last Done Comments Adult Wellness Visit 07/07/2017 07/07/2016 COVID-19 Vaccine ( season) 2023 10/10/2023, 03/02/2023, 02/04/2022, Additional history exists Influenza Vaccine (FLU shot) (#1) 2024 06/26/2023, 06/09/2022, 06/17/2021, Additional history exists Diabetic Eye Exam 08/01/2024 08/01/2023, , 07/25/2005 Albumin/Creatinine Ratio 09/26/2024 09/26/2023, 1105/2022 HbA1c 10/16/2024 04/15/2024, 0711/2023, 09/26/2023, Additional history exists GFR 11/21/2024 05/21/2024, 04/25, 05/06/2024, Additional history exists CKD PHOS USE SMARTSET 15476 03/27/2025 0711/2023, 09/26/2023, 08/23/2022, Additional history exists Depression Screening 03/27/2025 03/27/2024 Diabetic Foot Exam 03/27/2025 03/27/2024, 02/21/2023 CKD HGB USE SMARTSET 87991 04/26/202504/26, 04/26/2024, 04/15/2024, Additional history exists DTap/Tdap [...] this encounter Medical Devices Implanted Type Area Tobacco Stemmer Machine Device Identifier Shelf Expiration Date Model / Serial / Lot Strattice [id number] (400 Units) - [id number] Implanted:Qty : 400 on 10/25/2011 at [place] [facility] [place] Abdomen LIFE CELL MISTY 12/23/2012 [id number] / / [id number] Mesh Prolit Hernia [id number] - [id number] Implanted:Qty : 1 on 08/14/2012 at [place] [facility] Left: Abdomen [employer] MISTY 12/24/2015 [id number] / / [id number] Suture Steel 6 B&S19 M654g - [id number] Implanted:Qty : 3 on 07/10/2020 by Ag Ballesteros MD at OR [facility] N/A: Sternum JNJ : [employer] 02/22/2025 M654G / / [id number] Valve Heart Aortic Epic 23mm - [id number] - [id number] Implanted:Qty : 1 on 07/10/2020 by Ag Ballesteros MD at OR [facility] N/A: Aorta ST DOMINIK : CARDIOVASCULAR [id number] 03/22/2024 OVM910-14- 00 / [id number] / [id number] documented as of this encounter Visit Diagnoses [...] and were consensually agreed upon. Care Teams Dispatcher Clerk Relationship Specialty Start Date End Date Lokesh Amin MD [address] [place] [address] PCP - General Internal Medicine 07/22/21 documented as of this encounter
--- OUTSIDE RECORDS SUMMARY | 2024-07-19 11:35 | External Medical Summary | Summary of Care ---
Author Name Unknown Organization [facility] Address [address] [place] [address] Phone [phone] Care Team Providers Care Lip Cutter And Scorer Name Role Phone Lokesh Amin MD Primary Care Provider + Reason for Visit * Reason Onset Date Comments Follow Up 05/22/2024 Encounter Details Date Type Department Care Team (Late st Contact Info) Description 05/22/2024 Telephone NephrologyYaneth 200 [place] [address] Diane Montejo MD 200 [place] [address] Follow Up Allergies Active Allergy Reactions Criticality [...] mRNA, LNP-s, No Pre serve, 2-Dose Series (conXt) 06/29/2021,12/15/2020,11/24/2020 COVID-19, LNP-s, No Preserve , Deric-sucrose, [...] Encounter - Sarai Pan LPN - 05/22/2024 1:04 PM EDT IV infusion team has order and will process * Telephone Encounter - Lokesh Amin MD - 05/22/2024 12:40 PM EDT I placed order for 3 grams magnesium, thank you Dr. Montejo and Nurse Sarai for all your help! * Addendum Note - Lokesh Amin MD - 05/22/2024 12:40 PM EDTAddended by: LOKESH AMIN on: 05/22/2024 12:40 PM Modules accepted: Orders [...] schedule Alberto ----- Message ----- From: Diane Monteoj MD Sent: 05/22/2024 9:46 AM EDT To: [...] much and can MTU dothis at [facility]? Thanks! Alberto documented in this encounter Plan of Treatment Upcoming Encounters Date Type Department Care Team (Late st Contact Info) Description 05/22/2024 1:40 PM EDT Office Visit General Internal Medicine [facility] [address] [place] [address] Lokesh Amin MD 200 [facility] [place] [address] 06/06/2024 1:30 PM EDT Office Visit Pharmacy, [facility] 200 [facility] [place] [address] Pharmacist1, [facility] [address] [place] [address] 06/06/2024 2:00 PM EDT Nurse Only Ancillary [facility] 200 [facility] [place] [address] Nurse, Int Med 200 [facility] [place] [address] 08/28/2024 1:30 PM EST Office Visit Gastroenterology, [facility] [address] [facility] [place] [address] Rain Medellin CRNP [address] [place] [address] 10/14/2024 3:00 PM EST Office Visit Cardiology, [facility] [address] [facility] [place] [address] Fabian Mejia PA-C [address] [place] [address] 11/14/2024 2:00 PM EST Office Visit General Internal Medicine [facility] [address] [place] [address] Lokesh Amin MD 200 [facility] [place] [address] 11/14/2024 3:45 PM EST Office Visit MOHS Surgery [facility] [place] [address] [place], [place] [address] Becky Gordon MD 200 [place] [address] 03/18/2025 10:45 AM EDT Office Visit Dermatology [facility] [place] 200 [place] [address] Lokesh Mayen MD 200 [facility] [place], [place] [address] Scheduled Procedures Name Priority Associated Diagnoses Date/Ti [...] Additional history exists CKD PHOS USE SMARTSET 00919 03/27/2025 070 11/2023, 09/26/2023, 08/23/2022, Additional history exists Depression Screening 03/27/2025 03/27/2024 Diabetic Foot Exam 03/27/2025 03/27/2024, 02/21/2023 CKD HGB USE SMARTSET 02048 04/26/202504/26, 04/26/2024, 04/15/2024, Additional history exists DTap/Tdap [...] this encounter Medical Devices Implanted Type Area Waiter/Waitress Dining Car Device Identifier Shelf Expiration Date Model / Serial / Lot Strattice [id number] (400 Units) - [id number] Implanted:Qty : 400 on 10/25/2011 at OR [facility] Abdomen LIFE CELL MISTY 12/23/2012 [id number] / / [id number] Mesh Prolit Hernia [id number] - [id number] Implanted:Qty : 1 on 08/14/2012 at OR [facility] Left: Abdomen [employer] MISTY 12/24/2015 [id number] / / [id number] Suture Steel 6 B&S19 M654g - [id number] Implanted:Qty : 3 on 07/10/2020 by Ag Ballesteros MD at OR [facility] N/A: Sternum JNJ : [employer] 02/22/2025 M654G / / [id number] Valve Heart Aortic Epic 23mm - [id number] - [id number] Implanted:Qty : 1 on 07/10/2020 by Ag Ballesteros MD at OR [facility] N/A: Aorta ST DOMINIK : CARDIOVASCULAR [id number] 03/22/2024 PFG146-63- 00 / [id number] / [id number] documented as of this encounter Visit Diagnoses [...] and were consensually agreed upon. Care Teams Lip Cutter And Scorer Relationship Specialty Start Date End Date Lokesh Amin MD 200 [place] [address] PCP - General Internal Medicine 07/22/21 documented as of this encounter
--- OUTSIDE RECORDS SUMMARY | 2024-07-19 11:35 | External Medical Summary | Summary of Care ---
Author Name Unknown Organization [facility] Address [address] [place] [address] Phone [phone] Care Team Providers Care Trader Name Role Phone Lokesh Amin MD Primary Care Provider + Reason for Visit * Reason Onset Date Comments Medication Management 05/22/2024 Magnesium Encounter Details Date Type Department Care Team (Late st Contact Info) Description 05/22/2024 Telephone Hematology/Oncology Treatment, [place] [address] [place] [address] Lokesh Amin MD 200 [facility] [place] [address] Medication Management (Magnesium) Allergies Active [...] mRNA, LNP-s, No Pre serve, 2-Dose Series (Filmaka) 06/29/2021,12/15/2020,11/24/2020 COVID-19, LNP-s, No Preserve , Deric-sucrose, Ages 12+ (Pfizer) 02/04/2022 COVID-19, MRNA-LNP, 23-24, P F, 30 MCG/0.3 mL, 12 YRS AND ABOVE, IM (Rockerbox-Comirnaty) 10/10/2023 Covid-19, Mrna, Lnp-s, Pf, B ivalent, [...] 2:58 PM EDT Spoke with Christa at [facility]. They will see him tomorrow at 10 to start the infusion. Patient to arrive at 9:45 am at the back of the hospital in the cancer pavilion parking lot, then proceed through the double doors and go straight down that hallway to registration. Asking that order, patient demographic and insurance information to be faxed to [phone]. Patient aware and agreeable. Please provide order so I can fax to [facility]. Thanks! * Telephone Encounter - Lokesh Amin MD - 05/22/2024 2:00 PM EDT Can we call [facility]'s [facility] to see if they can infuse 3 grams magnesium for patient today or tomorrow? He didn't want to go to ER * Telephone Encounter - Hope Zaragoza LPN - 05/22/2024 1:[address] Amin After speaking with Clinical Sciences Professor, Becky Romero RN: Due to no chair [...] 1:13 PM EDT Order received for Magnesium [place] plan built and routed to provider No prior authorization required [place] plan signed documented in this encounter Plan of Treatment Upcoming Encounters Date Type Department Care Team (Late st Contact Info) Description 05/28/2024 1:40 PM EDT Office Visit Podiatry [facility] [address] [place] [address] Luly Lance DPM [address] [place] [address] 05/31/2024 2:20 PM EDT Office Visit Nephrology, [facility] [place] [address] Isa Long MD 400 [facility] [place] [address] 06/06/2024 1:30 PM EDT Office Visit Pharmacy, [facility] 200 [facility] [place] [address] Pharmacist1, [facility] [address] [place] [address] 06/06/2024 2:00 PM EDT Nurse Only Ancillary [facility] 200 [facility] [place] [address] Nurse, Int Med [address] [place] [address] 08/28/2024 1:30 PM EST Office Visit Gastroenterology, [facility] 132 [facility] [place] [address] Rain [facility]ellin CRNP 132 [facility] [place] [address] 10/14/2024 3:00 PM EST Office Visit Cardiology, [facility] 132 [facility] [place] [address] Fabian Mejia PA-C [facility] [address] 11/14/2024 2:00 PM EST Office Visit General Internal Medicine [facility] 200 [facility] [place] [address] Lokesh Amin MD 200 [facility] [place] [address] 11/14/2024 3:45 PM EST Office Visit MOHS Surgery [facility] [place] [address] [place] [address] Becky Gordon MD 200 [facility] [place] [address] 03/18/2025 10:45 AM EDT Office Visit Dermatology [facility] [place] 200 [facility] [place] [address] Lokesh Mayen MD 200 [facility] [place] [address] Scheduled Procedures Name Priority Associated Diagnoses Date/Ti [...] Additional history exists CKD PHOS USE SMARTSET 37148 03/27/2025 07/0 11/2023, 09/26/2023, 08/23/2022, Additional history exists Depression Screening 03/27/2025 03/27/2024 Diabetic Foot Exam 03/27/2025 03/27/2024, 02/21/2023 CKD HGB USE SMARTSET 20141 04/26/202504/26, 04/26/2024, 04/15/2024, Additional history exists DTap/Tdap [...] this encounter Medical Devices Implanted Type Area Teaching Music Lessons Device Identifier Shelf Expiration Date Model / Serial / Lot Strattice [id number] (400 Units) - [id number] Implanted:Qty : 400 on 10/25/2011 at [place] [facility] Abdomen LIFE CELL MISTY 12/23/2012 [id number] / / [id number] Mesh Prolit Hernia [id number] - [id number] Implanted:Qty : 1 on 08/14/2012 at [place] [facility] Left: Abdomen [employer] MISTY 12/24/2015 3135566-47 / / [id number] Suture Steel 6 B&S19 M654g - [id number] Implanted:Qty : 3 on 07/10/2020 by Ag Ballesteros MD at [place] [facility] N/A: Sternum JNJ : [employer] 02/22/2025 M654G / / QGBABE Valve Heart Aortic Epic 23mm - [id number] - [id number] Implanted:Qty : 1 on 07/10/2020 by Ag Ballesteros MD at [place] [facility] N/A: Aorta ST DOMINIK : CARDIOVASCULAR [id number] 03/22/2024 PIG617-82- 00 / [id number] / [id number] documented as of this encounter Advance Directives [...] and were consensually agreed upon. Care Teams Trader Relationship Specialty Start Date End Date Lokesh Amin MD 200 [place] [address] PCP - General Internal Medicine 07/22/21 documented as of this encounter
--- OUTSIDE RECORDS SUMMARY | 2024-07-19 11:35 | External Medical Summary | Summary of Care ---
Author Name Unknown Organization [facility] Address [address] [place] [address] Phone [phone] Care Team Providers Care Senior Project Architect Name Role Phone Lokesh Amin MD Primary Care Provider + Reason for Visit * Reason Onset Date Comments Follow Up 05/22/2024 Encounter Details Date Type Department Care Team (Late st Contact Info) Description 05/22/2024 Telephone NephrologyYaneth 200 [place] [address] Diane Montejo MD 200 [place] [address] Follow Up Allergies Active Allergy Reactions Criticality [...] mRNA, LNP-s, No Pre serve, 2-Dose Series (iMedX) 06/29/2021,12/15/2020,11/24/2020 COVID-19, LNP-s, No Preserve , Deric-sucrose, Ages 12+ (Pfizer) 02/04/2022 COVID-19, MRNA-LNP, 23-24, P F, 30 MCG/0.3 mL, 12 YRS AND ABOVE, IM (Tripwolf-ComirnatXSI Semi Conductors) 10/10/2023 Covid-19, Mrna, Lnp-s, Pf, B ivalent, [...] how much and can MTU dothis at [facility]? Thanks! Alberto documented in this encounter Plan of Treatment Upcoming Encounters Date Type Department Care Team (Late st Contact Info) Description 05/22/2024 1:40 PM EDT Office Visit General Internal Medicine [facility] [place] [address] [place] [address] Lokesh Amin MD [address] [place] [address] 06/06/2024 1:30 PM EDT Office Visit Pharmacy, Yaneth Rodriguez [place] [address] [place] [address] [address] Pharmacist1, [facility] [address] [place] [address] 06/06/2024 2:00 PM EDT Nurse Only Ancillary Yaneth Rodriguez [place] [address] [place] [address] Nurse, Int Med [address] [place] [place] [address] [address] 08/28/2024 1:30 PM EST Office Visit Gastroenterology, [facility] [address] [place] [address] Rain [place]ellin CRNP [address] [place] [address] 10/14/2024 3:00 PM EST Office Visit Cardiology, [facility] [address] [address] Fabian Mejia PA-C [address] [place] [address] 11/14/2024 2:00 PM EST Office Visit General Internal Medicine [address] [place] [address] Lokesh Amin MD [address] [place] [address] [place] [address] 11/14/2024 3:45 PM EST Office Visit MOHS Surgery [facility] 200 [place] [address] Becky Gordon MD [address] [place] [address] [place] [address] 03/18/2025 10:45 AM EDT Office Visit Dermatology [address] [place] [address] Lokesh Mayen MD [address] [place] [address] [place] [address] Scheduled Procedures Name Priority Associated Diagnoses Date/Ti [...] Additional history exists CKD PHOS USE SMARTSET 95020 03/27/2025 0711/2023, 09/26/2023, 08/23/2022, Additional history exists Depression Screening 03/27/2025 03/27/2024 Diabetic Foot Exam 03/27/2025 03/27/2024, 02/21/2023 CKD HGB USE SMARTSET 71611 04/26/202504/26, 04/26/2024, 04/15/2024, Additional history exists DTap/Tdap [...] this encounter Medical Devices Implanted Type Area Operating Room Technician Device Identifier Shelf Expiration Date Model / Serial / Lot Strattice [id number] (400 Units) - [id number] Implanted:Qty : 400 on 10/25/2011 [place] [facility] [place]domen LIFE CELL MISTY 12/23/2012 [id number] / / [id number] Mesh Prolit Hernia [id number] - [id number] Implanted:Qty : 1 on 08/14/2012 [place] [facility] Left: Abdomen A[employer]UM MED[employer] MISTY 12/24/2015 [id number] / / [id number] Suture Steel 6 B&S19 M654g - [id number] Implanted:Qty : 3 on 07/10/2020 by Ag Ballesteros MD [place] [facility] N/A: Sternum JNJ : [employer] 02/22/2025 M654G / / QGBABE Valve Heart Aortic Epic 23mm - [id number] - [id number] Implanted:Qty : 1 on 07/10/2020 by Ag Ballesteros MD [place] [facility] N/A: Aorta ST DOMINIK : CARDIOVASCULAR [id number] 03/22/2024 AKP861-48- 00 / [id number] / [id number] documented as of this encounter Visit Diagnoses [...] were consensually agreed upon. Care Teams Senior Project Architect Relationship Specialty Start Date End Date Lokesh Amin MD [address] [place] [address] PCP - General Internal Medicine 07/22/21 documented as of this encounter
--- OUTSIDE RECORDS SUMMARY | 2024-07-19 11:35 | External Medical Summary | Summary of Care ---
Author Name Unknown Organization [facility] Address [address] [place] [address] Phone [phone] Care Team Providers Care Industrial Equipment Mechanic Name Role Phone Lokesh Amin MD Primary Care Provider + Reason for Visit * Reason Onset Date Comments Follow Up 05/22/2024 Encounter Details Date Type Department Care Team (Late st Contact Info) Description 05/22/2024 Telephone NephrologyYaneth 200 [place] [address] Diane Montejo MD 200 [place] [address] Follow Up Allergies Active Allergy Reactions Criticality [...] mRNA, LNP-s, No Pre serve, 2-Dose Series (Sandglaz) 06/29/2021,12/15/2020,11/24/2020 COVID-19, LNP-s, No Preserve , Deric-sucrose, Ages 12+ (Pfizer) 02/04/2022 COVID-19, MRNA-LNP, 23-24, P F, 30 MCG/0.3 mL, 12 YRS AND ABOVE, IM (NotesFirst-ComirnatClear-Data Analytics) 10/10/2023 Covid-19, Mrna, Lnp-s, Pf, B ivalent, [...] how much and can MTU dothis at [facility]? Thanks! Alberto documented in this encounter Plan of Treatment Upcoming Encounters Date Type Department Care Team (Late st Contact Info) Description 05/22/2024 1:40 PM EDT Office Visit General Internal Medicine Yaneth Rodriguez [place] [address] [place] [address] Lokesh Amin MD [address] [place] [address] 06/06/2024 1:30 PM EDT Office Visit Pharmacy, Yaneth Rodriguez [place] [address] [place] [address] [address] Pharmacist1, [facility] [address] [place] [address] 06/06/2024 2:00 PM EDT Nurse Only Ancillary Yaneth Rodriguez [place] [address] [place] [address] Nurse, Int Med [address] [place] [address] 08/28/2024 1:30 PM EST Office Visit Gastroenterology, [facility] [address] [place] [address] Rain [place]in CRNP [address] [place] [address] 10/14/2024 3:00 PM EST Office Visit Cardiology, [facility] [address] [place] [address] Fabian Mejia PA-C [address] [place] [address] 11/14/2024 2:00 PM EST Office Visit General Internal Medicine [address] [place] [address] Lokesh Amin MD [address] [place] [address] [place] [address] 11/14/2024 3:45 PM EST Office Visit MOHS Surgery [facility] 200 [place] [address] Becky Gordon MD [address] [place] [address] [place] [address] 03/18/2025 10:45 AM EDT Office Visit Dermatology [address] [place] [address] Lokesh Mayen MD [address] [place] [address] [place] [address] Scheduled Procedures Name Priority Associated Diagnoses Date/Ti [...] Additional history exists CKD PHOS USE SMARTSET 92100 03/27/2025 0711/2023, 09/26/2023, 08/23/2022, Additional history exists Depression Screening 03/27/2025 03/27/2024 Diabetic Foot Exam 03/27/2025 03/27/2024, 02/21/2023 CKD HGB USE SMARTSET 27809 04/26/202504/26, 04/26/2024, 04/15/2024, Additional history exists DTap/Tdap [...] this encounter Medical Devices Implanted Type Area Roast Master Device Identifier Shelf Expiration Date Model / Serial / Lot Strattice [id number] (400 Units) - [id number] Implanted:Qty : 400 on 10/25/2011 at [place] [facility] [place] Abdomen LIFE CELL MISTY 12/23/2012 [id number] / / [id number] Mesh Prolit Hernia [id number] - [id number] Implanted:Qty : 1 on 08/14/2012 at OR [facility] Left: Abdomen [employer] MISTY 12/24/2015 [id number] / / [id number] Suture Steel 6 B&S19 M654g - [id number] Implanted:Qty : 3 on 07/10/2020 by Ag Ballesteros MD at OR [facility] [place] N/A: Sternum JNJ : [employer] 02/22/2025 M654G / / [id number] Valve Heart Aortic Epic 23mm - [id number] - [id number] Implanted:Qty : 1 on 07/10/2020 by Ag Ballesteros MD at OR [facility] [place] N/A: Aorta ST DOMINIK : CARDIOVASCULAR [id number] 03/22/2024 AON300-44- 00 / [id number] / [id number] documented as of this encounter Visit Diagnoses [...] and were consensually agreed upon. Care Teams Industrial Equipment Mechanic Relationship Specialty Start Date End Date Lokesh Amin MD [address] [place] [address] PCP - General Internal Medicine 07/22/21 documented as of this encounter
--- OUTSIDE RECORDS SUMMARY | 2024-07-19 11:36 | External Medical Summary | Summary of Care ---
Author Name Unknown Organization [facility] Address [address] [place] [address] Phone [phone] Care Team Providers Care Spindle Frame Carver Name Role Phone Lokesh Amin MD Primary Care Provider + Reason for Visit * Reason Comments Outpatient Testing Encounter Details Date Type Department Care Team (Late st Contact Info) Description 05/21/2024 12:50 PM EDT Laboratory Laboratory, [facility] [address] [place] [address] [facility] [address] [place] [address] Hypomagnesemia Allergies Active Allergy Reactions Criticality Noted Date Comments Demerol Neuro complications (Please comment) High 06/14/2010 confusion Adhesive Tape Rash Low 06/14/2010 documented as of this encounter (statuses as of 05/21/2024) Medications Medication Sig Dispensed Refills Start Date [...] Oral Tablet Take by mouth. Ac tive ZaaskTouch Verio w/Device KitIndications:Type 2 diabetes mellitus with hemoglobin A1c goal of less than 8.0% ([facility]) Use up to check sugar first thing in am and 2 hours after meals 1 Kit 04/04/2024 Active ZaaskTouch Verio In Vitro Strip (Glucose Blood)Indications:T ype 2 diabetes mellitus with hemoglobin A1c goal of less than 8.0% (HCC) Use up to check sugars first thing in am and 2 hours after meals 100 Strip 1 04/04/2024 Active OneTouch UltraSoft LancetsIndications: Type 2 diabetes mellitus with hemoglobin A1c goal of less than 8.0% (HCC) Use up to check sugar first thing in am and 2 hours after meals 100 Each 1 04/04/2024 Active Insulin Glargine Solostar 100 UNIT/ML Subcutaneous Solution Pen-injector (Lantus SoloStar)Indication s:Type 2 diabetes mellitus with hemoglobin A1c goal of less than 8.0% ([facility]) Inject 10 Units under the skin daily. Titrating dose - max dose 30 units daily. DX: E11.9 5 Each 04/04/2024 Active Insulin Pen Needle 32G X 6 MMIndications:Type 2 diabetes mellitus with hemoglobin A1c goal of less than 8.0% ([facility]) Use to inject insulin once daily. 100 Each 04/04/2024 Active metFORMIN HCl ER 500 MG Oral Tablet Extended Release 24 Hour (Glucophage XR)Indications:Type 2 diabetes mellitus with hemoglobin A1c goal of less than 8.0% ([facility]) Take 2 Tablets by mouth [...] 400 mg in the evening. 05/15/2024 Active Hospital, Clinic, or Other Facility Administered Medication Ordered Dose Route Frequency Start Date End Date Status Testosterone Cypionate (Depotestosterone Cypionate) 200 MG/ML inj 100 mgIndications:Hypogonadism, male 100 mg IM QMONTH 01/11/2021 Active documented as of this encounter (statuses as of 05/21/2024) Active Problems Problem Noted Date Diagnosed Date [...] as of this encounter (statuses as of 05/21/2024) Resolved Problems Problem Noted Date Diagnosed Date [...] as of this encounter (statuses as of 05/21/2024) Immunizations Name Administration Dates Next Due COVID-19 mRNA, LNP-s, No Pre serve, 2-Dose Series ([employer]) 06/29/2021,12/15/2020,11/24/2020 COVID-19, LNP-s, No Preserve , Deric-sucrose, Ages 12+ (Pfizer) 02/04/2022 COVID-19, MRNA-LNP, 23-24, P F, 30 MCG/0.3 mL, 12 YRS AND ABOVE, IM ([facility]) 10/10/2023 Covid-19, Mrna, Lnp-s, Pf, B ivalent, [...] PM EDT Office Visit General Internal Medicine [facility] [place] [address] [place] [address] Lokesh Amin MD [address] [place] [address] 06/06/2024 1:30 PM EDT Office Visit Pharmacy, [facility] [place] [address] [place] [address] [address] Pharmacist1, [facility] [address] [place] [address] 06/06/2024 2:00 PM EDT Nurse Only Ancillary [facility] [place] [address] [place] [address] [address] Nurse, Int Med [address] [place] [place] [address] [address] 08/28/2024 1:30 PM EST Office Visit Gastroenterology, [facility] [address] [address] Rain Medellin CRNP [address] [address] 10/14/2024 3:00 PM EST Office Visit Cardiology, [facility] [address] [place] [address] Fabian Mejia PA-C [address] [place] [address] 11/14/2024 2:00 PM EST Office Visit General Internal Medicine [facility] 200 [facility] [place] [address] Lokesh Amin MD 200 [facility] [place] [address] 11/14/2024 3:45 PM EST Office Visit MOHS Surgery [facility] [address] [place] [address] Becky Gordon MD 200 [facility] [address] 03/18/2025 10:45 AM EDT Office Visit Dermatology [facility] 200 [facility] [place] [address] Lokesh Mayen MD 200 [facility] [place], [place] [address] Pending Results Name Type Priority Associated Diagnoses Date /Time MAGNESIUM Lab Routine Hypomagnesemia 05/21/2024 12:35 PM EDT BASIC METABOLIC PANEL Lab Routine Hypomagnesemia 05/21/2024 12:35 PM EDT Scheduled Procedures Name Priority Associated [...] 070 11/2023, 09/26/2023, Additional history exists GFR 11/13/2024 05/13/2024, 04/25, 04/26/2024, Additional history exists CKD PHOS USE SMARTSET 49031 03/27/2025 07/0 11/2023, 09/26/2023, 08/23/2022, Additional history exists Depression Screening 03/27/2025 03/27/2024 Diabetic Foot Exam 03/27/2025 03/27/2024, 02/21/2023 CKD HGB USE SMARTSET 24202 04/26/202504/26, 04/26/2024, 04/15/2024, Additional history exists DTap/Tdap [...] this encounter Medical Devices Implanted Type Area Specimen Transporter Device Identifier Shelf Expiration Date Model / Serial / Lot Strattice [id number] (400 Units) - [id number] Implanted:Qty : 400 on 10/25/2011 at [place] [facility] [place] Abdomen LIFE CELL MISTY 12/23/2012 [id number] / / [id number] Mesh Prolit Hernia [id number] - [id number] Implanted:Qty : 1 on 08/14/2012 at OR [facility] [place] Left: Abdomen [employer] M[employer] 12/24/2015 [id number] / / [id number] Suture Steel 6 B&S19 M654g - [id number] Implanted:Qty : 3 on 07/10/2020 by Ag Ballesteros MD at OR [facility] [place] N/A: Sternum JNJ : [employer] 02/22/2025 M654G / / [id number] Valve Heart Aortic Epic 23mm - [id number] - [id number] Implanted:Qty : 1 on 07/10/2020 by Ag Ballesteros MD at OR [facility] [place] N/A: Aorta ST DOMINIK : CARDIOVASCULAR [id number] 03/22/2024 [id number] 00 / [id number] / [id number] documented as of this encounter Visit Diagnoses [...] and were consensually agreed upon. Care Teams Spindle Frame Carver Relationship Specialty Start Date End Date Lokesh Amin MD 200 [facility], [place] [address] PCP - General Internal Medicine 07/22/21 documented as of this encounter
--- OUTSIDE RECORDS SUMMARY | 2024-07-19 11:36 | External Medical Summary ---
Author Name Unknown Address Unknown Organization K[facility] [address] [place] [address] Laboratory Report Ordering Provider Test Date Status COREY JARAMILLO 05/21/2024 12:35:53 Final Observation Date Value Abnormality Reference (Units ) Status BUN 05/21/2024 12:35:53 19 6-20 (mg/dL) Final Creatinine 05/21/2024 12:35:53 1.3 Above high normal 0.6-1.2 (mg/dL) Final Glomerular filtration rate/1.73 sq M.predicted [Volume Rate/Area] in Serum, Plasma or Blood by Creatinine-based formula (CKD-EPI) 05/21/2024 12:35:53 57 Below low normal >=60 (mL/min) Final eGFR is calculated based on the CKD-EPI 2020 equation. Sodium 05/21/2024 12:35:53 142 135-146 (m mol/L) Final Potassium 05/21/2024 12:35:53 3.8 3.5-5.1 (m mol/L) Final Cl 05/21/2024 12:35:53 102 98-107 (mm ol/L) Final CO2 05/21/2024 12:35:53 27 22-32 (mmo l/L) Final Anion gap 05/21/2024 12:35:53 13 7-15 (mmol /L) Final Glucose 05/21/2024 12:35:53 135 Above high normal 70 -120 (mg/dL) Final Calcium 05/21/2024 12:35:53 9.3 8.4-10.2 ( mg/dL) Final Performing Location [facility] [address] [place] [address]
--- OUTSIDE RECORDS SUMMARY | 2024-07-19 11:36 | External Medical Summary | Summary of Care ---
Author Name Unknown Organization [facility] Address [address] [place] [address] Phone [phone] Care Team Providers Care Command And Control Officer Name Role Phone Lokesh Amin MD Primary Care Provider + Reason for Visit * Reason Onset Date Comments Test Results 05/14/2024 Encounter Details Date Type Department Care Team (Late st Contact Info) Description 05/14/2024 Telephone General Internal Medicine [facility] [address] Lokesh Amin MD 200 [facility] [place] [address] Test Results Allergies Active Allergy Reactions Criticality [...] Oral Tablet Take by mouth. Ac tive QwaqTouch Verio w/Device KitIndications:Typ e 2 diabetes mellitus with hemoglobin A1c goal of less than 8.0% ([facility]) Use up to check sugar first thing in am and 2 hours after meals 1 Kit 04/04/2024 Active QwaqToGoHealth Verio In Vitro Strip (Glucose Blood)Indications: Type 2 diabetes mellitus with hemoglobin A1c goal of less than 8.0% (HCC) Use up to check sugars first thing in am and 2 hours after meals 100 Strip 1 04/04/2024 Active OneTouch UltraSoft LancetsIndications :Type 2 diabetes mellitus with hemoglobin A1c goal of less than 8.0% (HCC) Use up to check sugar first thing in am and 2 hours after meals 100 Each 1 04/04/2024 Active Insulin Glargine Solostar 100 UNIT/ML Subcutaneous Solution Pen-injector (Lantus SoloStar)Indicatio ns:Type 2 diabetes mellitus with hemoglobin A1c goal of less than 8.0% ([facility]) Inject 10 Units under the skin daily. Titrating dose - max dose 30 units daily. DX: E11.9 5 Each 04/04/2024 Active Insulin Pen Needle 32G X 6 MMIndications:Type 2 diabetes mellitus with hemoglobin A1c goal of less than 8.0% ([facility]) Use to inject insulin once daily. 100 Each 04/04/2024 Active metFORMIN HCl ER 500 MG Oral Tablet Extended Release 24 Hour (Glucophage XR)Indications:Typ e 2 diabetes mellitus with hemoglobin A1c goal of less than 8.0% ([facility]) Take 2 Tablets by mouth 2 times [...] 400 mg in the evening. 05/15/2024 Active Magnesium Oxide 400 MG Oral Tablet Take 1 Tablet by mouth in the morning and 1 Tablet before bedtime. 04/30/2024 Discontinue d(Patient preference/ discontinua tion) Hospital, Clinic, [...] mRNA, LNP-s, No Pre serve, 2-Dose Series ([email or web address]) 06/29/2021,12/15/2020,11/24/2020 COVID-19, LNP-s, No Preserve , Deric-sucrose, Ages 12+ (Pfizer) 02/04/2022 COVID-19, MRNA-LNP, 23-24, P F, 30 MCG/0.3 mL, 12 YRS AND ABOVE, IM ([facility]) 10/10/2023 Covid-19, Mrna, Lnp-s, Pf, B ivalent, 30 Mcg, IM, 12 yrs and above ([email or web address]) 03/02/2023 Hepatitis B, 20+ yrs 04/01/2024,2023,09/29 Pneumococcal [...] encounter Miscellaneous Notes * Telephone Encounter - Elysia Arenas LPN [...] LPN - 05/14/2024 12:12 PM EDT My [employer] message sent. * Telephone Encounter - Cortney [...] PM EDT Office Visit General Internal Medicine [facility] [address] [place] [address] Lokesh Amin MD 200 [facility] [place] [address] 06/06/2024 1:30 PM EDT Office Visit Pharmacy, [facility] [place] [address] [place] [address] Pharmacist1, [facility] [address] [facility] [place] [address] 06/06/2024 2:00 PM EDT Nurse Only Ancillary [facility] [place] [address] [place] [address] Nurse, Int Med [address] [facility] [place] [address] 08/28/2024 1:30 PM EST Office Visit Gastroenterology, [facility] [address] [address] Rain Medellin CRNP [address] [place] [address] 10/14/2024 3:00 PM EST Office Visit Cardiology, [facility] [address] [place] [address] Fabian Mejia PA-C [address] [place] [address] 11/14/2024 2:00 PM EST Office Visit General Internal Medicine [facility] 200 [facility] [place] [address] Lokesh Amin MD 200 [facility] [place] [address] 11/14/2024 3:45 PM EST Office Visit MOHS Surgery [facility] [address] [place] [address] Becky Gordon MD 200 [facility] [place] [address] 03/18/2025 10:45 AM EDT Office Visit Dermatology [facility] 200 [facility] [place] [address] Lokesh Mayen MD 200 [facility] [address] Scheduled Orders Name Type Priority Associated Diagnoses Orde r Schedule BASIC METABOLIC PANEL Lab Routine Hypomagnesemia Expected: 05/21/2024 (Approximate), Expires: 05/21/2025 Scheduled Procedures Name Priority Associated Diagnoses Date/Ti [...] 04/15/2024, 0711/2023, 09/26/2023, Additional history exists GFR 11/13/2024 05/13/2024, 04/25, 04/26/2024, Additional history exists CKD PHOS USE SMARTSET 87613 03/27/2025 07/0 11/2023, 09/26/2023, 08/23/2022, Additional history exists Depression Screening 03/27/2025 03/27/2024 Diabetic Foot Exam 03/27/2025 03/27/2024, 02/21/2023 CKD HGB USE SMARTSET 93859 04/26/202504/26, 04/26/2024, 04/15/2024, Additional history exists DTap/Tdap [...] this encounter Medical Devices Implanted Type Area Seeing Eye Dog Teacher Device Identifier Shelf Expiration Date Model / Serial / Lot Strattice [id number] (400 Units) - [id number] [place]ed:Qty : 400 [place] [facility] [facility] [place] LIFE CELL MISTY 12/23/[id number] / / [id number] Mesh Prolit Hernia [id number] - [id number] Implanted:Qty : 1 on 08/14/2012 [place] [facility] [place]: Abdomen [employer] M[employer] 12/24/2015 [id number] / / [id number] Suture Steel 6 B&S19 M654g - [id number] Implanted:Qty : 3 on 07/10/2020 by Ag Ballesteros [place] [facility] [place]/A: Sternum JNJ : [employer] 02/22/2025 M654G / / [id number] Valve Heart Aortic Epic 23mm - [id number] - [id number] Implanted:Qty : 1 on 07/10/2020 by Ag Ballesteros [place] [facility] [place] N/A: Aorta ST DOMINIK : CARDIOVASCULAR [id number] 03/22/2024 [id number] 00 / [id number] / [id number] documented as of this encounter Visit Diagnoses [...] and were consensually agreed upon. Care Teams Command And Control Officer Relationship Specialty Start Date End Date Lokesh Amin MD 200 [facility], [place] [address] PCP - General Internal Medicine 07/22/21 documented as of this encounter
--- OUTSIDE RECORDS SUMMARY | 2024-07-19 11:36 | External Medical Summary | Summary of Care ---
Author Name Unknown Organization [facility] Address [address] [place] [address] Phone [phone] Care Team Providers Care Act Tutor Name Role Phone Lokesh Amin MD Primary Care Provider + Reason for Referral * Evaluate & Treat - Unlimited Visits (Within 3 days (urgent)) - Authorized Specialty Diagnoses / Procedures Referred By Gladys vazquez Referred To Contact Nephrology Diagnoses Hypomagnesemia Lokesh Amin MD [facility] [place] [address] Referral ID Status Reason Start Date Expiration Date Visits Requested Visits Authorized [id number] Authorized Specialty Services Required 05/22/2024 999 999 [...] [employer] [address] [place] [address] Lokesh Amin MD [address] [facility] [address] [facility] [address] Test Results Allergies Active Allergy Reactions Criticality [...] after meals 1 Kit 04/04/2024 Active OneTouch Verio In Vitro Strip (Glucose [...] morning and 1 Tablet before bedtime. 04/30/2024 4 Discontinue d(Patient preference/ discontinua tion) Hospital, [...] mRNA, LNP-s, No Pre serve, 2-Dose Series ([employer]) 06/29/2021,12/15/2020,11/24/2020 COVID-19, LNP-s, No Preserve , Deric-sucrose, Ages 12+ ([employer]) 02/04/2022 COVID-19, MRNA-LNP, 23-24, P F, 30 MCG/0.3 mL, 12 YRS AND ABOVE, IM ([facility]ir[facility]) 10/10/2023 Covid-19, Mrna, Lnp-s, Pf, B ivalent, 30 Mcg, IM, 12 yrs and above ([employer]) 03/02/2023 Hepatitis B, 20+ yrs 04/01/2024,2023,09/29 Pneumococcal [...] LPN - 05/14/2024 12:12 PM EDT My [email or web address] message sent. * Telephone Encounter - Cortney [...] Office Visit General Internal Medicine [facility] [place] [address] [place] [address] Lokesh Amin MD [address] [facility] [place], [place] [address] 06/06/2024 1:30 PM EDT Office Visit Pharmacy, [facility] [address] [place] [address] Pharmacist1, [facility] [address] [facility] [place], [place] [address] 06/06/2024 2:00 PM EDT Nurse Only Ancillary [facility] [address] [place] [address] Nurse, Int Med [address] [place] [address] 08/28/2024 1:30 PM EST Office Visit Gastroenterology, [facility] [address] [place] [address] Rain [place]in CRNP [facility] [place] [address] 10/14/2024 3:00 PM EST Office Visit Cardiology, [facility] [place] [address] Fabian Mejia PA-C [facility] [place] [address] 11/14/2024 2:00 PM EST Office Visit General Internal Medicine [facility] [address] [place], [place] [address] Lokesh Amin MD [address] [facility] [place] [address] 11/14/2024 3:45 PM EST Office Visit MOHS Surgery [facility] [address] [place] [address] Becky Gordon MD [address] [place] [address] 03/18/2025 10:45 AM EDT Office Visit Dermatology [facility] [place] 200 [facility] [place] [address] Lokesh Mayen MD 200 [facility] [place] [address] Scheduled Orders Name Type Priority Associated Diagnoses Orde r Schedule BASIC METABOLIC PANEL Lab Routine Hypomagnesemia Expected: 05/22/2024 (Approximate), Expires: 05/22/2025 MAGNESIUM Lab Routine Hypomagnesemia Expected: 05/22/2024 (Approximate), Expires: 05/22/2025 Scheduled Procedures Name Priority Associated Diagnoses Date/Ti [...] 04/15/2024, 11/2023, 09/26/2023, Additional history exists GFR 11/21/2024 05/21/2024, 04/25, 05/06/2024, Additional history exists CKD PHOS USE SMARTSET 21815 03/27/2025 07/0 11/2023, 09/26/2023, 08/23/2022, Additional history exists Depression Screening 03/27/2025 03/27/2024 Diabetic Foot Exam 03/27/2025 03/27/2024, 02/21/2023 CKD HGB USE SMARTSET 17987 04/26/202504/26, 04/26/2024, 04/15/2024, Additional history exists DTap/Tdap [...] this encounter Medical Devices Implanted Type Area Plastics And Composites Inspector Device Identifier Shelf Expiration Date Model / Serial / Lot Strattice [id number] (400 Units) - [id number] Implanted:Qty : 400 on 10/25/2011 [place] [facility] [place]domen LIFE CELL MISTY 12/23/2012 [id number] / / [id number] Mesh Prolit Hernia [id number] - [id number] Implanted:Qty : 1 on 08/14/2012 at [facility] Left: Abdomen [employer] M[employer] 12/24/2015 [id number] / / [id number] Suture Steel 6 B&S19 M654g - [id number] Implanted:Qty : 3 on 07/10/2020 by Ag Ballesteros MD at [place] [facility] [place] N/A: Sternum JNJ : [employer] 02/22/2025 M654G / / [id number] Valve Heart Aortic Epic 23mm - [id number] - [id number] Implanted:Qty : 1 on 07/10/2020 by Ag Ballesteros [place] [facility] [place] N/A: Aorta ST DOMINIK : CARDIOVASCULAR [id number] 03/22/2024 [id number] 00 / [id number] / [id number] documented as of this encounter Results * (ABNORMAL) BASIC METABOLIC PANEL (05/21/2024 12:35 [...] [facility] [address] [place] [address] documented in this encounter Visit Diagnoses Diagnosis [...] and were consensually agreed upon. Care Teams Act Tutor Relationship Specialty Start Date End Date Lokesh Amin MD 200 [place] [address] PCP - General Internal Medicine 07/22/21 documented as of this encounter
--- OUTSIDE RECORDS SUMMARY | 2024-07-19 11:36 | External Medical Summary | Summary of Care ---
Author Name Unknown Organization [facility] Address [address] [place] [address] Phone [phone] Care Team Providers Care Desktop Administrator Name Role Phone Lokesh Amin MD Primary Care Provider + Reason for Visit * Reason Onset Date Comments Follow Up 05/22/2024 Encounter Details Date Type Department Care Team (Late st Contact Info) Description 05/22/2024 Telephone NephrologyYaneth [address] [place] [address] Diane Montejo MD [address] [place] [address] Follow Up Allergies Active Allergy Reactions Criticality [...] mRNA, LNP-s, No Pre serve, 2-Dose Series ([employer]) 06/29/2021,12/15/2020,11/24/2020 COVID-19, LNP-s, No Preserve , Deric-sucrose, Ages 12+ (Pfizer) 02/04/2022 COVID-19, MRNA-LNP, 23-24, P F, 30 MCG/0.3 mL, 12 YRS AND ABOVE, IM ([employer]) 10/10/2023 Covid-19, Mrna, Lnp-s, Pf, B ivalent, [...] how much and can MTU dothis at [facility]? Thanks! Alberto documented in this encounter Plan of Treatment Upcoming Encounters Date Type Department Care Team (Late st Contact Info) Description 05/22/2024 1:40 PM EDT Office Visit General Internal Medicine Yan[facility] Rodriguez [place] [address] [place] [address] Lokesh Amin MD [address] [place] [address] 06/06/2024 1:30 PM EDT Office Visit Pharmacy, Yaneth Rodriguez [place] [address] [place] [address] Pharmacist1, [facility] [address] [place] [address] 06/06/2024 2:00 PM EDT Nurse Only Ancillary Yaneth Rodriguez [place] [address] [place] [address] [address] Nurse, Int Med [address] [place] [address] 08/28/2024 1:30 PM EST Office Visit Gastroenterology, [facility] [address] [place] [address] Rain Medellin CRNP [address] [place] [address] 10/14/2024 3:00 PM EST Office Visit Cardiology, [facility] [address] [place] [address] Fabian Mejia PA-C [address] [place] [address] 11/14/2024 2:00 PM EST Office Visit General Internal Medicine [address] [place] [address] Lokesh Amin MD [address] [place] [address] [place] [address] 11/14/2024 3:45 PM EST Office Visit MOHS Surgery [facility] [address] [place] [address] Becky Gordon MD [address] [place] [address] [place] [address] 03/18/2025 10:45 AM EDT Office Visit Dermatology [address] [place] [address] Lokesh Mayen MD [address] [place] [address] [place] [address] Scheduled Procedures Name Priority Associated Diagnoses Date/Ti [...] Additional history exists CKD PHOS USE SMARTSET 49693 03/27/2025 0711/2023, 09/26/2023, 08/23/2022, Additional history exists Depression Screening 03/27/2025 03/27/2024 Diabetic Foot Exam 03/27/2025 03/27/2024, 02/21/2023 CKD HGB USE SMARTSET 10831 04/26/202504/26, 04/26/2024, 04/15/2024, Additional history exists DTap/Tdap [...] this encounter Medical Devices Implanted Type Area Stripping Shovel Operator Device Identifier Shelf Expiration Date Model / Serial / Lot Strattice [id number] (400 Units) - [id number] Implanted:Qty : 400 on 10/25/2011 at [place] [facility] [place] Abdomen LIFE CELL MISTY 12/23/2012 [id number] / / [id number] Mesh Prolit Hernia [id number] - [id number] Implanted:Qty : 1 on 08/14/2012 at OR [facility] [place] Left: Abdomen [employer] MISTY 12/24/2015 [id number] / / [id number] Suture Steel 6 B&S19 M654g - [id number] Implanted:Qty : 3 on 07/10/2020 by Ag Ballesteros MD at OR [facility] [place] N/A: Sternum JNJ : [employer] 02/22/2025 M654G / / [id number] Valve Heart Aortic Epic 23mm - [id number] - [id number] Implanted:Qty : 1 on 07/10/2020 by Ag Ballesteros MD at OR [facility] [place] N/A: Aorta ST DOMINIK : CARDIOVASCULAR [id number] 03/22/2024 [id number] 00 / [id number] / [id number] documented as of this encounter Visit Diagnoses [...] and were consensually agreed upon. Care Teams Desktop Administrator Relationship Specialty Start Date End Date Lokesh Amin MD [address] [place] [address] PCP - General Internal Medicine 07/22/21 documented as of this encounter
--- OUTSIDE RECORDS SUMMARY | 2024-07-19 11:36 | External Medical Summary | Summary of Care ---
Author Name Unknown Organization [facility] Address [address] [place] [address] Phone [phone] Care Team Providers Care Haulpak Driver Name Role Phone Lokesh Amin MD Primary Care Provider + Encounter Details Date Type Department Care Team (Late st Contact Info) Description 05/21/2024 Telephone General Internal Medicine [facility] [address] Lokesh Amin MD 200 [facility] [address] Allergies Active Allergy Reactions Criticality Noted Date [...] hemoglobin A1c goal of less than 8.0% ([facility]) Use up to check sugar first thing in am and 2 hours after meals 1 Kit 04/04/2024 Active OneTouch Verio In Vitro Strip (Glucose Blood)Indications:T ype 2 diabetes mellitus with hemoglobin A1c goal of less than 8.0% ([facility]) Use up to check sugars first thing in am and 2 hours after meals 100 Strip 1 04/04/2024 Active OneTouch UltraSoft LancetsIndications: Type 2 diabetes mellitus with hemoglobin A1c goal of less than 8.0% ([facility]) Use up to check sugar first thing in am and 2 hours after meals 100 Each 1 04/04/2024 Active Insulin Glargine Solostar 100 UNIT/ML Subcutaneous Solution Pen-injector (Lantus SoloStar)Indication s:Type 2 diabetes mellitus with hemoglobin A1c goal of less than 8.0% ([facility]) Inject 10 Units under the skin daily. Titrating dose - max dose 30 units daily. DX: E11.9 5 Each 3 04/04/2024 Active Insulin Pen Needle 32G X 6 MMIndications:Type 2 diabetes mellitus with hemoglobin A1c goal of less than 8.0% ([facility]) Use to inject insulin once daily. 100 Each 3 04/04/2024 Active metFORMIN HCl ER 500 MG Oral Tablet Extended Release 24 Hour (Glucophage XR)Indications:Type 2 diabetes mellitus with hemoglobin A1c goal of less than 8.0% ([facility]) Take 2 Tablets by mouth [...] mRNA, LNP-s, No Pre serve, 2-Dose Series ([employer]) 06/29/2021,12/15/2020,11/24/2020 COVID-19, LNP-s, No Preserve , Deric-sucrose, Ages 12+ (Pfizer) 02/04/2022 COVID-19, MRNA-LNP, 23-24, P F, 30 MCG/0.3 mL, 12 YRS AND ABOVE, IM ([employer]) 10/10/2023 Covid-19, Mrna, Lnp-s, Pf, B ivalent, 30 Mcg, IM, 12 yrs and above ([employer]) 03/02/2023 Hepatitis B, 20+ yrs 04/01/2024,2023,09/29 Pneumococcal [...] encounter Miscellaneous Notes * Telephone Encounter - Meet Cohn OSA - 05/21/2024 8:54 AM EDT Patient scheduled * Telephone Encounter - Elysia Arenas LPN - 05/21/2024 8:46 AM EDT Spoke with pt. Pt states that he has a plantar wart on the bottom of his right foot. Would like an appt to have this looked at Please assist with scheduling documented in this encounter Plan of Treatment Upcoming Encounters Date Type Department Care Team (Late st Contact Info) Description 05/22/2024 1:40 PM EDT Office Visit General Internal Medicine [facility] [place] [address] [place] [address] Lokesh Amin MD [address] [place] [address] 06/06/2024 1:30 PM EDT Office Visit Pharmacy, Yaneth Rodriguez [place] [address] [place] [address] [address] [address] Pharmacist1, [facility] [address] [place] [address] 06/06/2024 2:00 PM EDT Nurse Only Ancillary [facility] 200 [facility] [place] [address] Nurse, Int Med 200 [facility] [place] [address] 08/28/2024 1:30 PM EST Office Visit Gastroenterology, [facility] [address] [place] [address] Rain Medellin CRNP [address] [place] [address] 10/14/2024 3:00 PM EST Office Visit Cardiology, [facility] [address] [place] [address] Fabian Mejia PA-C [address] [place] [address] 11/14/2024 2:00 PM EST Office Visit General Internal Medicine [facility] 200 [facility] [place] [address] Lokesh Amin MD 200 [facility] [place] [address] 11/14/2024 3:45 PM EST Office Visit [facility] [address] Becky Gordon MD 200 [facility] [place] [address] 03/18/2025 10:45 AM EDT Office Visit Dermatology [facility] 200 [facility] [place] [address] Lokesh Mayen MD [address] [place] [address] [place] [address] Scheduled Procedures Name Priority Associated Diagnoses Date/Ti [...] Additional history exists CKD PHOS USE SMARTSET 30637 03/27/2025 07/0 11/2023, 09/26/2023, 08/23/2022, Additional history exists Depression Screening 03/27/2025 03/27/2024 Diabetic Foot Exam 03/27/2025 03/27/2024, 02/21/2023 CKD HGB USE SMARTSET 40922 04/26/202504/26, 04/26/2024, 04/15/2024, Additional history exists DTap/Tdap [...] this encounter Medical Devices Implanted Type Area Package Crimper Device Identifier Shelf Expiration Date Model / Serial / Lot Strattice [id number] (400 Units) - [id number] Implanted:Qty : 400 on 10/25/2011 [place] [facility] [place] Abdomen LIFE CELL MISTY 12/23/2012 [id number] / / [id number] Mesh Prolit Hernia [id number] - [id number] Implanted:Qty : 1 on 08/14/2012 at [place] [facility] [place] Left: Abdomen [employer] MISTY 12/24/2015 [id number] / / [id number] Suture Steel 6 B&S19 M654g - [id number] Implanted:Qty : 3 on 07/10/2020 by Ag Ballesteros MD at [place] [facility] [place] N/A: Sternum JNJ : [employer] 02/22/2025 M654G / / [id number] Valve Heart Aortic Epic 23mm - [id number] - [id number] Implanted:Qty : 1 on 07/10/2020 by Ag Ballesteros MD at [place] [facility] [place] N/A: Aorta ST DOMINIK : CARDIOVASCULAR [id number] 03/22/2024 [id number] 00 / [id number] / [id number] documented as of this encounter Advance Directives [...] and were consensually agreed upon. Care Teams Haulpak Driver Relationship Specialty Start Date End Date oLkesh Amin MD 200 [facility] [place] [address] PCP - General Internal Medicine 07/22/21 documented as of this encounter
--- OUTSIDE RECORDS SUMMARY | 2024-07-19 11:36 | External Medical Summary | Summary of Care ---
Author Name Unknown Organization [facility] Address [address] [place] [address] Phone [phone] Care Team Providers Care Ship Fitter Name Role Phone Lokesh Amin MD Primary Care Provider + Reason for Visit * Reason Onset Date Comments Follow Up 05/22/2024 Encounter Details Date Type Department Care Team (Late st Contact Info) Description 05/22/2024 Telephone NephrologyYaneth [address] [place] [address] Diane Montejo MD [address] [place] [address] Follow Up Allergies Active Allergy Reactions Criticality [...] Oral Tablet Take by mouth. Ac tive ALICE Appuch Verio w/Device KitIndications:Type 2 diabetes mellitus with hemoglobin A1c goal of less than 8.0% ([facility]) Use up to check sugar first thing in am and 2 hours after meals 1 Kit 04/04/2024 Active Spark LabsTouch Verio In Vitro Strip (Glucose Blood)Indications:T ype 2 diabetes mellitus with hemoglobin A1c goal of less than 8.0% ([facility]) Use up to check sugars first thing [...] hemoglobin A1c goal of less than 8.0% ([facility]) Take 2 Tablets by mouth 2 times [...] mRNA, LNP-s, No Pre serve, 2-Dose Series ([employer]) 06/29/2021,12/15/2020,11/24/2020 COVID-19, LNP-s, No Preserve , Deric-sucrose, Ages 12+ (Pfizer) 02/04/2022 COVID-19, MRNA-LNP, 23-24, P F, 30 MCG/0.3 mL, 12 YRS AND ABOVE, IM ([employer]-Comir[employer]) 10/10/2023 Covid-19, Mrna, Lnp-s, Pf, B ivalent, [...] encounter Miscellaneous Notes * Telephone Encounter - aSrai PanLEO - 05/22/2024 9:55 AM EDT ----- Message [...] how much and can MTU dothis at [facility]? Thanks! Alberto documented in this encounter Plan of Treatment Upcoming Encounters Date Type Department Care Team (Late st Contact Info) Description 05/22/2024 1:40 PM EDT Office Visit General Internal Medicine [facility] [place] 200 [facility] [place] [address] Lokesh Amin MD 200 [facility] [place] [address] 06/06/2024 1:30 PM EDT Office Visit Pharmacy, [facility] [place] 200 [facility] [place] [address] Pharmacist1, [facility] [address] [facility] [place] [address] 06/06/2024 2:00 PM EDT Nurse Only Ancillary [facility] [place] 200 [facility] [place] [address] Nurse, Int Med [address] [facility] [place] [address] 08/28/2024 1:30 PM EST Office Visit Gastroenterology, [facility] [address] [address] Rain Medellin CRNP [address] [address] 10/14/2024 3:00 PM EST Office Visit Cardiology, [facility] [address] [place] [address] Fabian Mejia PA-C [address] [place] [address] 11/14/2024 2:00 PM EST Office Visit General Internal Medicine [facility] 200 [facility] [place] [address] Lokesh Amin MD 200 [facility] [place] [address] 11/14/2024 3:45 PM EST Office Visit MOHS Surgery [facility] [address] [place], [place] [address] Becky Gordon MD [address] [place] [address] [place] [address] 03/18/2025 10:45 AM EDT Office Visit Dermatology [facility] 200 [place] [address] Lokesh Mayen MD 200 [place] [address] Scheduled Procedures Name Priority Associated Diagnoses Date/Ti [...] Additional history exists CKD PHOS USE SMARTSET 41171 03/27/2025 0711/2023, 09/26/2023, 08/23/2022, Additional history exists Depression Screening 03/27/2025 03/27/2024 Diabetic Foot Exam 03/27/2025 03/27/2024, 02/21/2023 CKD HGB USE SMARTSET 27866 04/26/202504/26, 04/26/2024, 04/15/2024, Additional history exists DTap/Tdap [...] this encounter Medical Devices Implanted Type Area Crm Campaign Manager Device Identifier Shelf Expiration Date Model / Serial / Lot Strattice [id number] (400 Units) - [id number] Implanted:Qty : 400 on 10/25/2011 [place] [facility] [place]domen LIFE CELL MISTY 12/23/2012 [id number] / / [id number] Mesh Prolit Hernia [id number] - [id number] Implanted:Qty : 1 on 08/14/2012 [place] [facility] [place]: Abdomen ATRIUM MED[employer] MISTY 12/24/2015 [id number] / / [id number] Suture Steel 6 B&S19 M654g - [id number] Implanted:Qty : 3 on 07/10/2020 by Ag Ballesteros MD at [place] [facility] [place] N/A: Sternum JNJ : [employer] 02/22/2025 M654G / / [id number] Valve Heart Aortic Epic 23mm - [id number] - [id number] Implanted:Qty : 1 on 07/10/2020 by Ag Ballesteros MD at [place] [facility] [place] N/A: Aorta ST DOMINIK : CARDIOVASCULAR [id number] 03/22/2024 [id number]- 00 / [id number] / [id number] documented as of this encounter Visit Diagnoses [...] and were consensually agreed upon. Care Teams Ship Fitter Relationship Specialty Start Date End Date Lokesh Amin MD 200 [facility] [place] [address] PCP - General Internal Medicine 07/22/21 documented as of this encounter
--- OUTSIDE RECORDS SUMMARY | 2024-07-19 11:36 | External Medical Summary | Summary of Care ---
Author Name Unknown Organization [facility] Address [address] [place] [address] Phone [phone] Care Team Providers Care Dumper Operator Name Role Phone Lokesh Nicole MD Primary Care Provider + Reason for Visit * Reason Comments eRx-Medication Refill Encounter Details Date Type Department Care Team (Late st Contact Info) Description 05/20/2024 Refill General Internal Medicine [facility] 200 [place] [address] Lokesh Nicole MD [address] [place] [address] Type 2 diabetes mellitus with hemoglobin A1c goal of less than 8.0% ([facility]) Allergies Active Allergy Reactions Criticality Noted Date [...] AFTER MEALS 100 Strip 1 05/22/2024 Active OneTouch Verio In Vitro Strip (Glucose Blood)Indications :Type 2 diabetes mellitus with hemoglobin A1c goal of less than 8.0% (H[facility]) Use up to check sugars first thing in am and 2 hours after meals 100 Strip 04/04/2024 05/22/20 24 Discontinued Hospital, Clinic, or [...] mRNA, LNP-s, No Pre serve, 2-Dose Series ([employer]) 06/29/2021,12/15/2020,11/24/2020 COVID-19, LNP-s, No Preserve , Deric-sucrose, Ages 12+ (Pfizer) 02/04/2022 COVID-19, MRNA-LNP, 23-24, P F, 30 MCG/0.3 mL, 12 YRS AND ABOVE, IM ([facility]) 10/10/2023 Covid-19, Mrna, Lnp-s, Pf, B ivalent, [...] encounter Miscellaneous Notes * Telephone Encounter - Albaro Juarez RPh - 05/22/2024 10:42 AM EDTSigned Prescriptions: Disp Refills OneTouch Verio In Vitro Strip (Glucose Blo*100 St*1 Sig: USE UP TO CHECK SUGARS FIRST THING IN AM AND 2 HOURS AFTER MEALSAuthorizing Provider: LOKESH NICOLE User: ALBARO JUAREZ documented in this encounter Plan of Treatment Upcoming Encounters Date Type Department Care Team (Late st Contact Info) Description 05/22/2024 1:40 PM EDT Office Visit General Internal Medicine Yaneth Rodriguez [place] [address] [place] [address] Lokesh Nicole MD [address] [place] [address] 06/06/2024 1:30 PM EDT Office Visit Pharmacy, [facility] [address] [place], [place] [address] Pharmacist1, [facility] [address] [place], [place] [address] 06/06/2024 2:00 PM EDT Nurse Only Ancillary [facility] [address] [place], [place] [address] Nurse, Int Med [address] [place] [address] 08/28/2024 1:30 PM EST Office Visit Gastroenterology, [facility] [place] [address] Rain Medellin CRNP [address] [place] [address] 10/14/2024 3:00 PM EST Office Visit Cardiology, [facility] [place] [address] Fabian Mejia PAParishC [address] [place] [address] 11/14/2024 2:00 PM EST Office Visit General Internal Medicine [facility] [address] [place] [address] Lokesh Nicole MD [address] [facility] [place], [place] [address] 11/14/2024 3:45 PM EST Office Visit MOHS Surgery [facility] [address] [place] [address] Becky Gordon MD [address] [place], [place] [address] 03/18/2025 10:45 AM EDT Office Visit Dermatology [facility] 200 [facility] [place] [place] [address] Lokesh Mayen MD 200 [facility] [place] [address] Scheduled Procedures Name Priority Associated Diagnoses Date/Ti [...] Additional history exists CKD PHOS USE SMARTSET 94065 03/27/2025 07/0 11/2023, 09/26/2023, 08/23/2022, Additional history exists Depression Screening 03/27/2025 03/27/2024 Diabetic Foot Exam 03/27/2025 03/27/2024, 02/21/2023 CKD HGB USE SMARTSET 66553 04/26/202504/26, 04/26/2024, 04/15/2024, Additional history exists DTap/Tdap [...] this encounter Medical Devices Implanted Type Area Christmas Bell Ringer Device Identifier Shelf Expiration Date Model / Serial / Lot Strattice [id number] (400 Units) - [id number] Implanted:Qty : 400 on 10/25/2011 [place] [facility] [place] Abdomen LIFE CELL MISTY 12/23/2012 [id number] / / [id number] Mesh Prolit Hernia [id number] - [id number] Implanted:Qty : 1 on 08/14/2012 at [place] [facility] [place] [place] Left: Abdomen [employer] MISTY 12/24/2015 [id number] / / [id number] Suture Steel 6 B&S19 M654g - [id number] Implanted:Qty : 3 on 07/10/2020 by Ag Ballesteros MD at [place] [facility] [place] N/A: Sternum JNJ : [employer] 02/22/2025 M654G / / [id number] Valve Heart Aortic Epic 23mm - [id number] - [id number] Implanted:Qty : 1 on 07/10/2020 by Ag Ballesteros MD at [place] [facility] [place] N/A: Aorta ST DOMINIK : CARDIOVASCULAR [id number] 03/22/2024 [id number]- 00 / [id number] / [id number] documented as of this encounter Visit Diagnoses Diagnosis Type 2 diabetes mellitus with hemoglobin A1c goal of less than 8.0% ([facility]) documented in this encounter Advance Directives * [...] were consensually agreed upon. Care Teams Dumper Operator Relationship Specialty Start Date End Date Lokesh Nicole MD 200 [facility] [place] [address] PCP - General Internal Medicine 07/22/21 documented as of this encounter
--- OUTSIDE RECORDS SUMMARY | 2024-07-19 11:36 | External Medical Summary ---
Author Name Unknown Address Unknown Organization K01:LABORATORY [facility] [place] - [address] [place] [address] Laboratory Report Ordering Provider Test Date Status COREY JARAMILLO 05/21/2024 12:35:53 Final Observation Date Value Abnormality Reference (Units ) Status Magnesium 05/21/2024 12:35:53 1.1 Below low normal 1.5 -2.6 (mg/dL) Final Performing Location LABORATORY [facility] - [address] [place] [address]
--- OUTSIDE RECORDS SUMMARY | 2024-07-19 11:37 | External Medical Summary ---
Author Name Unknown Address Unknown Organization K01:[facility] [place] [address] [place] [address] Laboratory Report Ordering Provider Test Date Status MICHAEL TRACY 05/13/2024 13:58:48 Final Observation Date Value Abnormality Reference (Units ) Status MYCODE SPECIMEN-SST 05/13/2024 13:58:48 Freezing of extracted DNA, whole blood and/or serum. Final Performing Location [facility] [place] [address] [place] [address]
--- OUTSIDE RECORDS SUMMARY | 2024-07-19 11:37 | External Medical Summary ---
Author Name Unknown Address Unknown Organization [id number]:LABORATORY [facility] [place] - [address] [place] [address] Laboratory Report Ordering Provider Test Date Status COREY JARAMILLO 05/13/2024 13:58:48 Final Observation Date Value Abnormality Reference (Units ) Status Magnesium 05/13/2024 13:58:48 1.1 Below low normal 1.5 -2.6 (mg/dL) Final Performing Location LABORATORY [facility] - [address] [place] [address]
--- OUTSIDE RECORDS SUMMARY | 2024-07-19 11:37 | External Medical Summary | Summary of Care ---
Author Name Unknown Organization [facility] Address [address] [place] [address] Phone [phone] Care Team Providers Care Monkey Keeper Name Role Phone Lokesh Amin MD Primary Care Provider + Reason for Visit * Reason Onset Date Comments Ultrasound 05/12/2024 Encounter Details Date Type Department Care Team (Late st Contact Info) Description 05/12/2024 Telephone General Internal Medicine [facility] [address] [facility] [place] [address] Lokesh Amin MD 200 [facility] [address] Ultrasound (/) Allergies Active Allergy Reactions Criticality Noted Date Comments Demerol Neuro complications (Please comment) High 06/14/2010 confusion Adhesive Tape Rash Low 06/14/2010 documented as of this encounter (statuses as of 05/12/2024) Medications Medication Sig Dispensed Refills Start Date [...] Oral Tablet Take by mouth. Ac tive Celsius Game Studiosuch Verio w/Device KitIndications:Type 2 diabetes mellitus with hemoglobin A1c goal of less than 8.0% ([facility]) Use up to check sugar first thing in am and 2 hours after meals 1 Kit 04/04/2024 Active Shunra SoftwareTouch Verio In Vitro Strip (Glucose Blood)Indications:T ype [...] of less than 8.0% ([facility]) Inject 10 Units under the skin daily. Titrating dose - max dose 30 units daily. DX: E11.9 5 Each 04/04/2024 Active Insulin Pen Needle 32G X 6 MMIndications:Type 2 diabetes mellitus with hemoglobin A1c goal of less than 8.0% ([facility]) Use to inject insulin once daily. 100 Each 04/04/2024 Active metFORMIN HCl ER 500 MG Oral Tablet Extended Release 24 Hour (Glucophage XR)Indications:Type 2 diabetes mellitus with hemoglobin A1c goal of less than 8.0% ([facility]) Take 2 Tablets by mouth 2 times a day with morning and evening meals. Begin with one tablet twice daily for one week then increase to two tablets twice daily 360 Tablet 3 04/04/2024 Active Magnesium Oxide 400 MG Oral Tablet Take 1 Tablet by mouth in the morning and 1 Tablet before bedtime. 04/30/2024 Active Colestipol HCl 1 GM Oral Tablet (Colestid) Take 1 Tablet by mouth in the morning. 30 Tablet 3 05/08/2024 Active Hospital, Clinic, or Other Facility Administered Medication Ordered Dose Route Frequency Start Date End Date Status Testosterone Cypionate (Depotestosterone Cypionate) 200 MG/ML inj 100 mgIndications:Hypogonadism, male 100 mg IM QMONTH 01/11/2021 Active documented as of this encounter (statuses as of 05/12/2024) Active Problems Problem Noted Date Diagnosed Date [...] as of this encounter (statuses as of 05/12/2024) Resolved Problems Problem Noted Date Diagnosed Date [...] as of this encounter (statuses as of 05/12/2024) Immunizations Name Administration Dates Next Due COVID-19 mRNA, LNP-s, No Pre serve, 2-Dose Series (Drifty) 06/29/2021,12/15/2020,11/24/2020 COVID-19, LNP-s, No Preserve , Deric-sucrose, Ages 12+ (Pfizer) 02/04/2022 COVID-19, MRNA-LNP, 23-24, P F, 30 MCG/0.3 mL, 12 YRS AND ABOVE, IM ([facility] 10/10/2023 Covid-19, Mrna, Lnp-s, Pf, B ivalent, 30 Mcg, IM, 12 yrs and above (Drifty) 03/02/2023 Hepatitis B, 20+ yrs 04/01/2024,2023,09/29 Pneumococcal [...] Telephone Encounter - Lokesh Amin MD - 05/12/2024 1:12 PM EDT Patient due for f/u carotid u/s at [facility] to re-assess carotid arteries in neck, pls schedule documented in this encounter Plan of Treatment Upcoming Encounters Date Type Department Care Team (Late st Contact Info) Description 05/14/2024 1:45 PM EDT Office Visit [facility] [place] [facility] [address] Becky Gordon MD [address] [facility] [place] [address] 06/06/2024 1:30 PM EDT Office Visit Pharmacy, [facility] [place] [address] [place] [address] Pharmacist1, [facility] [address] [place] [address] 06/06/2024 2:00 PM EDT Nurse Only Ancillary [facility] Jennifer [place] [address] [place] [address] Nurse, Int Med [address] [facility] [place] [address] 08/28/2024 1:30 PM EST Office Visit Gastroenterology, [facility] [address] [place] [address] Rain Medellin CRNP [address] [place] [address] 10/14/2024 3:00 PM EST Office Visit Cardiology, [facility] [address] [place] [address] Fabian Mejia PA-C [address] [place] [address] 11/14/2024 2:00 PM EST Office Visit General Internal Medicine [facility] [address] [facility] [place] [address] Lokesh Amin MD [address] [facility] [place] [address] 03/18/2025 10:45 AM EDT Office Visit Dermatology [facility] [address] [facility] [place] [address] Lokesh Mayen MD [address] [place] [address] [place] [address] Scheduled Orders Name Type Priority Associated Diagnoses Orde r Schedule VASC DUPLEX CAROTID BILAT Medical Imaging Routine Left carotid stenosis Ordered: 05/12/2024 Scheduled Procedures Name Priority Associated Diagnoses Date/Ti [...] 04/15/2024, 0711/2023, 09/26/2023, Additional history exists GFR 11/06/2024 05/06/2024, 080 10/2023, 04/15/2024, Additional history exists CKD PHOS USE SMARTSET 06807 03/27/2025 07/0 11/2023, 09/26/2023, 08/23/2022, Additional history exists Depression Screening 03/27/2025 03/27/2024 Diabetic Foot Exam 03/27/2025 03/27/2024, 02/21/2023 CKD HGB USE SMARTSET 13037 04/26/202504/26, 04/26/2024, 04/15/2024, Additional history exists DTaP,Tdap,and Td Vaccines (3 - Td or Tdap) 09/07/2029 [...] this encounter Medical Devices Implanted Type Area Lapeler Device Identifier Shelf Expiration Date Model / Serial / Lot Strattice [id number] (400 Units) - [id number] Implanted:Qty : 400 on 10/25/2011 at OR [facility] Abdomen LIFE CELL MISTY 12/23/2012 [id number] / / [id number] Mesh Prolit Hernia [id number] - [id number] Implanted:Qty : 1 on 08/14/2012 at OR [facility] Left: Abdomen [employer] 12/24/2015 [id number] / / [id number] Suture Steel 6 B&S19 M654g - [id number] Implanted:Qty : 3 on 07/10/2020 by Ag Ballesteros MD at OR [facility] N/A: Sternum JNJ : [employer] 02/22/2025 M654G / / [id number] Valve Heart Aortic Epic 23mm - [id number] - [id number] Implanted:Qty : 1 on 07/10/2020 by Ag Ballesteros MD at OR [facility] N/A: Aorta ST DOMINIK : CARDIOVASCULAR [id number] 03/22/2024 [id number] / [id number] / [id number] documented as of this encounter Visit Diagnoses Diagnosis Left carotid stenosis- Primary Occlusion and stenosis of carotid artery without mention of cerebral infarction documented in this encounter Advance Directives * [...] and were consensually agreed upon. Care Teams Monkey Keeper Relationship Specialty Start Date End Date Lokesh Amin MD 200 [facility], [place] [address] PCP - General Internal Medicine 07/22/21 documented as of this encounter
--- OUTSIDE RECORDS SUMMARY | 2024-07-19 11:37 | External Medical Summary ---
Author Name Unknown Address Unknown Organization K0G[facility] [address] [place] [address] Laboratory Report Ordering Provider Test Date Status COREY JARAMILLO 05/13/2024 13:58:48 Final Observation Date Value Abnormality Reference (Units ) Status BUN 05/13/2024 13:58:48 15 6-20 (mg/dL) Final Creatinine 05/13/2024 13:58:48 1.2 0.6-1.2 (mg/dL) Final Glomerular filtration rate/1.73 sq M.predicted [Volume Rate/Area] in Serum, Plasma or Blood by Creatinine-based formula (CKD-EPI) 05/13/2024 13:58:48 60 >=60 (mL/min) Final eGFR is calculated based on the CKD-EPI 2020 equation. Sodium 05/13/2024 13:58:48 141 135-146 (m mol/L) Final Potassium 05/13/2024 13:58:48 4.0 3.5-5.1 (m mol/L) Final Cl 05/13/2024 13:58:48 104 98-107 (mm ol/L) Final CO2 05/13/2024 13:58:48 26 22-32 (mmo l/L) Final Anion gap 05/13/2024 13:58:48 11 7-15 (mmol /L) Final Glucose 05/13/2024 13:58:48 98 70-120 (mg /dL) Final Calcium 05/13/2024 13:58:48 8.8 8.4-10.2 ( mg/dL) Final Performing Location [facility] [address] [place] [address]
--- OUTSIDE RECORDS SUMMARY | 2024-07-19 11:37 | External Medical Summary | Summary of Care ---
Author Name Unknown Organization [facility] Address [address] [place] [address] Phone [phone] Care Team Providers Care Cone Worker Name Role Phone Lokesh Amin MD Primary Care Provider + Reason for Visit * Reason Comments Re-Check Pt presents today fo r 2 week recheck on L helical root/L ear s/p Mohs 03/11. Pt has no questions or concerns at this time Encounter Details Date Type Department Care Team (Late st Contact Info) Description 05/14/2024 1:45 PM EDT Office Visit [facility] Surgery [facility] [address] [place] [address] Becky Gordon MD [address] [place] [address] Visit for wound check*; Status post reconstruction procedure Allergies Active Allergy Reactions Criticality Noted Date Comments Demerol Neuro complications (Please comment) High 06/14/2010 confusion Adhesive Tape Rash Low 06/14/2010 documented as of this encounter (statuses as of 05/20/2024) Medications Medication Sig Dispensed Refills Start Date [...] hemoglobin A1c goal of less than 8.0% ([facility]) Use up to check sugar first thing in am and 2 hours after meals 1 Kit 04/04/2024 Active OneTouch Verio In Vitro Strip (Glucose Blood)Indications: Type 2 diabetes mellitus with hemoglobin A1c goal of less than 8.0% ([facility]) Use up to check sugars first thing in am and 2 hours after meals 100 Strip 1 04/04/2024 Active OneTouch UltraSoft LancetsIndications :Type 2 diabetes mellitus with hemoglobin A1c goal of less than 8.0% ([facility]) Use up to check sugar first thing in am and 2 hours after meals 100 Each 1 04/04/2024 Active Insulin Glargine Solostar 100 UNIT/ML Subcutaneous Solution Pen-injector (Lantus SoloStar)Indicatio ns:Type 2 diabetes mellitus with hemoglobin A1c goal of less than 8.0% ([facility]) Inject 10 Units under the skin daily. Titrating dose - max dose 30 units daily. DX: E11.9 5 Each 3 04/04/2024 Active Insulin Pen Needle 32G X 6 MMIndications:Type 2 diabetes mellitus with hemoglobin A1c goal of less than 8.0% ([facility]) Use to inject insulin once daily. 100 Each 3 04/04/2024 Active metFORMIN HCl ER 500 MG Oral Tablet Extended Release 24 Hour (Glucophage XR)Indications:Typ e 2 diabetes mellitus with hemoglobin A1c goal of less than 8.0% ([facility]) Take 2 Tablets by mouth 2 times a day with morning and evening meals. Begin with one tablet twice daily for one week then increase to two tablets twice daily 360 Tablet 3 04/04/2024 Active Colestipol HCl 1 GM Oral Tablet (Colestid) Take 1 Tablet by mouth in the morning. 30 Tablet 3 05/08/2024 Active Magnesium Oxide 400 MG Oral Tablet [...] as of this encounter (statuses as of 05/20/2024) Active Problems Problem Noted Date Diagnosed Date [...] as of this encounter (statuses as of 05/20/2024) Resolved Problems Problem Noted Date Diagnosed Date [...] as of this encounter (statuses as of 05/20/2024) Immunizations Name Administration Dates Next Due COVID-19 mRNA, LNP-s, No Pre serve, 2-Dose Series (TE2) 06/29/2021,12/15/2020,11/24/2020 COVID-19, LNP-s, No Preserve , Deric-sucrose, Ages 12+ (TE2) 02/04/2022 COVID-19, MRNA-LNP, 23-24, P F, 30 MCG/0.3 mL, 12 YRS AND ABOVE, IM ([facility]) 10/10/2023 Covid-19, Mrna, Lnp-s, Pf, B ivalent, 30 Mcg, IM, 12 yrs and above (TE2) 03/02/2023 Hepatitis B, 20+ yrs 04/01/2024,2023,09/29 Pneumococcal [...] as of this encounter Progress Notes * Becky Gordon MD - 05/14/2024 10:16 PM EDT SUBJECTIVE: HPI: Jhon Nelson is a 78 year old male s/p Mohs micrographic surgery of a basal cell carcinoma on the left helical root/left ear repaired with a banner transposition flap and full-thickness skin graft on 03/11/2024. Wound is healing well thus far and patient has no concerns/complaints. EXAM -Surgical site on left ear and preauricular area well healed - slight movement of left forehead noted, temporal nerve neuropraxia improving PLAN - No further wound care/bandage needed. Can apply Vaseline as needed to one small crusted area. Follow-up: 6 months The patient was encouraged to contact me with any further questions or concerns. Becky Gordon MD Associate, Mohs Micrographic Surgery & Dermatologic Surgery 05/14/2024 documented in this encounter Nursing Notes * Sarahi Hernandez LPN - 05/14/2024 1:43 PM EDT Chief Complaint Patient presents with Re-Check Pt presents today for 2 week recheck on L helical root/L ear s/p Mohs 03/11. Pt has no questions or concerns at this time documented in this encounter Plan of Treatment Upcoming Encounters Date Type Department Care Team (Late st Contact Info) Description 06/06/2024 1:30 PM EDT Office Visit Pharmacy, [facility] [place] 200 [facility] [place] [address] Pharmacist1, [facility] [address] [facility] [place] [address] 06/06/2024 2:00 PM EDT Nurse Only Ancillary [facility] [place] [address] [place] [address] Nurse, Int Med [address] [facility] [place] [address] 08/28/2024 1:30 PM EST Office Visit Gastroenterology, [facility] [address] [facility] [place] [address] Rain Medellin CRNP [address] [place] [address] 10/14/2024 3:00 PM EST Office Visit Cardiology, [facility] [address] [place] [address] Fabian Mejia PA-C [address] [place] [address] 11/14/2024 2:00 PM EST Office Visit General Internal Medicine [facility] Jennifer [place] [address] [place] [address] Lokesh Amin MD 200 [facility] [place] [address] 11/14/2024 3:45 PM EST Office Visit [facility] Surgery [facility] [address] [place] [address] Becky Gordon MD 200 [facility] [place] [address] 03/18/2025 10:45 AM EDT Office Visit Dermatology [facility] [place] [address] [place] [address] Lokesh Mayen MD 200 [place] [address] Scheduled Procedures Name Priority Associated Diagnoses Date/Ti [...] 07/0 11/2023, 09/26/2023, Additional history exists GFR 11/13/2024 05/13/2024, 08/1 10/2023, 04/26/2024, Additional history exists CKD PHOS USE SMARTSET 48364 03/27/2025 07/0 11/2023, 09/26/2023, 08/23/2022, Additional history exists Depression Screening 03/27/2025 03/27/2024 Diabetic Foot Exam 03/27/2025 03/27/2024, 02/21/2023 CKD HGB USE SMARTSET 10036 04/26/202504/26, 04/26/2024, 04/15/2024, Additional history exists DTaP,Tdap,and [...] this encounter Medical Devices Implanted Type Area Administrative Services Manager Device Identifier Shelf Expiration Date Model / Serial / Lot Strattice [id number] (400 Units) - [id number] Implanted:Qty : 400 on 10/25/2011 at OR [facility] [place] Abdomen LIFE CELL MISTY 12/23/2012 [id number] / / [id number] Mesh Prolit Hernia [id number] - [id number] Implanted:Qty : 1 on 08/14/2012 at OR [facility] [place] Left: Abdomen [employer] 12/24/2015 [id number] / / [id number] Suture Steel 6 B&S19 M654g - [id number] Implanted:Qty : 3 on 07/10/2020 by Ag Ballesteros MD at OR [facility] [place] N/A: Sternum JNJ : [employer] 02/22/2025 M654G / / [id number] Valve Heart Aortic Epic 23mm - [id number] - [id number] Implanted:Qty : 1 on 07/10/2020 by Ag Ballesteros MD at OR [facility] [place] N/A: Aorta ST DOMINIK : CARDIOVASCULAR [id number] 03/22/2024 [id number] / [id number] / [id number] documented as of this encounter Visit Diagnoses Diagnosis Visit for wound check- Primary Encounter for other specified aftercare Status post reconstruction procedure Other postprocedural status documented in this encounter Advance Directives * [...] and were consensually agreed upon. Care Teams Cone Worker Relationship Specialty Start Date End Date Lokesh Amin MD 200 [place] [address] PCP - General Internal Medicine 07/22/21 documented as of this encounter
--- OUTSIDE RECORDS SUMMARY | 2024-07-19 11:37 | External Medical Summary | Summary of Care ---
Author Name Unknown Organization [facility] Address [address] [place] [address] Phone [phone] Care Team Providers Care Mobile Device Developer Name Role Phone Lokesh Amin MD Primary Care Provider + Reason for Visit * Reason Comments Diabetes Follow-Up Dosage Adjustment Via Phone (anticoag Cl inic) Encounter Details Date Type Department Care Team (Late st Contact Info) Description 05/06/2024 2:20 PM EDT Office Visit Pharmacy, [facility] [address] [facility] [place] [address] Pharmacist1, [facility] [address] [place] [address] Type 2 diabetes mellitus with hemoglobin A1c goal of less than 8.0% ([facility] Allergies Active Allergy Reactions Criticality Noted Date Comments Demerol Neuro complications (Please comment) High 06/14/2010 confusion Adhesive Tape Rash Low 06/14/2010 documented as of this encounter (statuses as of 05/06/2024) Medications Medication Sig Dispensed Refills Start Date [...] Oral Tablet Take by mouth. Ac tive Q Care InternationalTouch Verio w/Device KitIndications:Type 2 diabetes mellitus with hemoglobin A1c goal of less than 8.0% ([facility]) Use up to check sugar first thing in am and 2 hours after meals 1 Kit 04/04/2024 Active Q Care InternationalTouch Verio In Vitro Strip (Glucose Blood)Indications:T ype [...] hemoglobin A1c goal of less than 8.0% ([facility]) Inject 10 Units under the skin daily. Titrating dose - max dose 30 units daily. DX: E11.9 5 Each 04/04/2024 Active Insulin Pen Needle 32G X 6 MMIndications:Type 2 diabetes mellitus with hemoglobin A1c goal of less than 8.0% ([facility]) Use to inject insulin once daily. 100 Each 04/04/2024 Active metFORMIN HCl ER 500 MG Oral Tablet Extended Release 24 Hour (Glucophage XR)Indications:Type 2 diabetes mellitus with hemoglobin A1c goal of less than 8.0% ([facility]) Take 2 Tablets by mouth 2 times a day with morning and evening meals. Begin with one tablet twice daily for one week then increase to two tablets twice daily 360 Tablet 3 04/04/2024 Active Magnesium Oxide 400 MG Oral Tablet Take 1 Tablet by mouth in the morning and 1 Tablet before bedtime. 04/30/2024 Active Hospital, Clinic, or Other Facility Administered Medication Ordered Dose Route Frequency Start Date End Date Status Testosterone Cypionate (Depotestosterone Cypionate) 200 MG/ML inj 100 mgIndications:Hypogonadism, male 100 mg IM QMONTH 01/11/2021 Active documented as of this encounter (statuses as of 05/06/2024) Active Problems Problem Noted Date Diagnosed Date [...] as of this encounter (statuses as of 05/06/2024) Resolved Problems Problem Noted Date Diagnosed Date [...] as of this encounter (statuses as of 05/06/2024) Immunizations Name Administration Dates Next Due COVID-19 mRNA, LNP-s, No Pre serve, 2-Dose Series (Daleeli) 06/29/2021,12/15/2020,11/24/2020 COVID-19, LNP-s, No Preserve , Deric-sucrose, Ages 12+ (Pfizer) 02/04/2022 COVID-19, MRNA-LNP, 23-24, P F, 30 MCG/0.3 mL, 12 YRS AND ABOVE, IM ([facility]) 10/10/2023 Covid-19, Mrna, Lnp-s, Pf, B ivalent, 30 Mcg, IM, 12 yrs and above (Daleeli) 03/02/2023 Hepatitis B, 20+ yrs 04/01/2024,2023,09/29 Pneumococcal [...] of this encounter Progress Notes * Jamal Berrios, [facility] - 05/06/2024 2:00 PM EDT Medication Therapy Disease Management [facility] - Diabetes Management Progress Note Jhon Nelson, identified by name and date of , is a 78 year old male being seen for diabetes management/education. Patient presents for return diabetic visit. DIABETES: Current diabetic medications: Metformin ER 500mg 1 tablet twice daily Lantus 10 units daily Medication Injection Site: Abdomen Lifestyle: Diet: improved History of Treatment Barriers: Lifestyle: None Therapy considerations: Renal Function, Heart Failure - consider using SGLT-2, and History of Medullary Thyroid Cancer - GLP-1 contraindicated Medication: None Glucose Review/SMBG: Readings obtained from patient documented BG logbook Pre am Pre Lunch Pre pm HS 1:30 AM 124 161 88 144 128 94 115 153 131 128 125 83 112 131 113 134 109 104 108 173 120 119 75 149 106 132 81 141 114 87 84 149 114 178 94 69 85 86 118 84 114 88 76 92 149 107 106 101 128 110 156 101 Pre am Pre Lunch Pre pm HS 1:30 AM Average 111 119 97 130 85 Hi 131 178 125 173 85 Lo 86 76 75 69 85 Range 45 102 50 104 0 Hypoglycemia: Does your blood sugar go below 70 mg/dL? Yes, once. Treated with tangerine and protein Hyperglycemia symptoms present: polyurea, polydipsia Recent Labs Units 04/15/24 1459 03/27/24 1234 09/26/23 1425 HEMOGLOBIN A1C - [facility] % 11.7* 12.4* 6.7* Recent Labs Units 04/26/24 1440 04/15/24 1459 04/10/24 1516 ESTIMATED GLOMERULAR FILTRATION RATE - [facility] mL/min 48* 46* 40* CREATININE - [facility] mg/dL 1.5* 1.6* 1.7* Lab Results Component Value Date/Time CREATININE - [facility] 1.5 (H) 04/26/2024 02:40 PM CREATININE - [facility] 1.6 (H) 04/15/2024 02:59 PM CREATININE - [facility] 1.7 (H) 04/10/2024 03:16 PM CREATININE - [facility] 1.3 (H) 10/13/2020 [...] daily BP Readings from Last 3 Encounters: 04/25/24 102/66 04/08/24 126/76 03/27/24 122/70 Blood pressure at goal: yes HYPERLIPIDEMIA: Patient is taking moderate or high intensity statin: yes. Atorvastatin 10mg daily HEALTH MAINTENANCE REVIEW: Health Maintenance Due Topic Date Due Adult Wellness Visit 07/07/2017 COVID-19 Vaccine ( season) 2023 ASSESSMENT & PLAN: ICD-10-CM 1. Type 2 diabetes mellitus with hemoglobin A1c goal of less than 8.0% ([facility]) E11.9 BG Readings - Blood sugars controlled. He had one low reading and treated correctly. Medications - Reviewed current regimen, patient is adherent to regimen. Decreasing Lantus to allow AM readings to increase some. Diet, Exercise, Lifestyle - see above . Discussed with patient today. Patient is agreeable to SMBG 2 time(s) daily. Patient aware to contact clinic if any hypoglycemia before next visit. MEDICATION CHANGES: yes, see below; preferred pharmacy: [facility] Diabetic Medications: Metformin ER 500mg 1 tablet twice daily DECREASE: Lantus 9 units daily HEALTH MAINTENANCE INTERVENTIONS: Labs: Up to Date Immunizations: Up to Date Foot Exam: Up to Date Eye Exam: Up to Date Annual Wellness Visit: Schedule at next visit. I spent a total of 20-29 minutes (exact time 21 mins) on the date of service in preparation, delivery, and documentation of the care provided to John Nelson excluding any time spent in the performance of separately billed services or time spent by another provider/QHP. FOLLOW UP: Return to clinic in 4 weeks 06/06/2024 Jamal Espinoza RPh, K[facility]STIN Clinical Pharmacist - Polysomnograph Tech Medication Therapy Management [facility] 05/06/2024, 2:01 PM documented in this encounter Plan of Treatment Upcoming Encounters Date Type Department Care Team (Late st Contact Info) Description 05/08/2024 2:00 PM EDT Office Visit Gastroenterology, [facility] [address] [facility] [place] [address] Rain Medellin CRNP [address] [place] [address] 05/14/2024 1:45 PM EDT Office Visit MOHS [facility] [address] [facility] [address] Becky Gordon MD [address] [place] [address] [place] [address] 06/06/2024 1:30 PM EDT Office Visit Pharmacy, [facility] [address] [facility] [place] [address] Pharmacist1, [facility] [address] [facility] [place] [address] 06/06/2024 2:00 PM EDT Nurse Only Ancillary [facility] [address] [facility] [address] [place] [address] Nurse, Int Med [address] [facility] [place] [address] 10/14/2024 3:00 PM EST Office Visit [facility], [facility] [address] [facility] [address] Fabian Mejia PA-C [address] [place] [address] 11/14/2024 2:00 PM EST Office Visit General Internal Medicine [facility] [address] [facility] [place] [address] Lokesh Amin MD [address] [facility] [place] [address] 03/18/2025 10:45 AM EDT Office Visit Dermatology [facility] [address] [facility] [place] [address] Lokesh Mayen MD [address] [facility] [place] [address] Scheduled Procedures Name Priority Associated Diagnoses Date/Ti [...] 04/15/2024, 0711/2023, 09/26/2023, Additional history exists GFR 10/27/2024 04/26/2024, 03/26, 04/10/2024, Additional history exists CKD PHOS USE SMARTSET 60517 03/27/2025 07/0 11/2023, 09/26/2023, 08/23/2022, Additional history exists Depression Screening 03/27/2025 03/27/2024 Diabetic Foot Exam 03/27/2025 03/27/2024, 02/21/2023 CKD HGB USE SMARTSET 44976 04/26/202504/26, 04/26/2024, 04/15/2024, Additional history exists DTaP,Tdap,and [...] this encounter Medical Devices Implanted Type Area Certified Nurse Operating Room Device Identifier Shelf Expiration Date Model / Serial / Lot Strattice [id number] (400 Units) - [id number] Implanted:Qty : 400 on 10/25/2011 at OR [facility] Abdomen [employer] MISTY 12/23/[id number] / / [id number] Mesh Prolit Hernia [id number] - [id number] Implanted:Qty : 1 on 08/14/2012 at OR [facility] Left: Abdomen [employer] 12/24/2015 [id number] / / [id number] Suture Steel 6 B&S19 M654g - [id number] Implanted:Qty : 3 on 07/10/2020 by Ag Ballesteros MD at OR [facility] N/A: Sternum JNJ : [employer] 02/22/2025 M654G / / [id number] Valve Heart Aortic Epic 23mm - [id number] - [id number] Implanted:Qty : 1 on 07/10/2020 by Ag Ballesteros MD at OR [facility] N/A: Aorta [facility] DOMINIK : CARDIOVASCULAR [id number] 03/22/2024 [id number] / [id number] / [id number] documented as of this encounter Visit Diagnoses Diagnosis Type 2 diabetes mellitus with hemoglobin A1c goal of less than 8.0% ([facility])- Primary documented in this encounter Advance Directives [...] and were consensually agreed upon. Care Teams Mobile Device Developer Relationship Specialty Start Date End Date Lokesh Amin MD [address] [place] [address], [place] [address] PCP - General Internal Medicine 07/22/21 documented as of this encounter
--- OUTSIDE RECORDS SUMMARY | 2024-07-19 11:37 | External Medical Summary | Summary of Care ---
Author Name Unknown Organization [facility] Address [address] [place] [address] Phone [phone] Care Team Providers Care Leather Parts Matcher Name Role Phone Lokesh Amin MD Primary Care Provider + Reason for Visit * Reason Comments Follow Up Former pt of Mis. Pt here to f/u for loose stools. Pt still having issues/no improvement. Pt is now on Mag BID and insulin. Encounter Details Date Type Department Care Team (Late st Contact Info) Description 05/08/2024 2:00 PM EDT Office Visit Gastroenterology, [facility] [address] [place] [address] Rain Medellin CRNP [address] [place] [address] Chronic diarrhea* Allergies Active Allergy Reactions Criticality Noted Date Comments Demerol Neuro complications (Please comment) High 06/14/2010 confusion Adhesive Tape Rash Low 06/14/2010 documented as of this encounter (statuses as of 05/08/2024) Medications Medication Sig Dispensed Refills Start Date [...] [facility]) Use up to check sugars first [...] as of this encounter (statuses as of 05/08/2024) Active Problems Problem Noted Date Diagnosed Date [...] as of this encounter (statuses as of 05/08/2024) Resolved Problems Problem Noted Date Diagnosed Date [...] as of this encounter (statuses as of 05/08/2024) Immunizations Name Administration Dates Next Due COVID-19 mRNA, LNP-s, No Pre serve, 2-Dose Series ([employer]) 06/29/2021,12/15/2020,11/24/2020 COVID-19, LNP-s, No Preserve , Deric-sucrose, Ages 12+ (Pfizer) 02/04/2022 COVID-19, MRNA-LNP, 23-24, P F, 30 MCG/0.3 mL, 12 YRS AND ABOVE, IM ([employer]) 10/10/2023 Covid-19, Mrna, Lnp-s, Pf, B ivalent, [...] Sign Reading Time Taken Comments Blood Pressure 102/68 05/08/2024 1:59 PM EDT Pulse 86 05/08/2024 1:59 PM EDT Temperature 36.6 C (97.9 F) 05/08/2024 1:59 PM ED T Respiratory Rate - - Oxygen Saturation - - Inhaled Oxygen Concentration - - Weight 88.2 kg (194 lb 6.4 oz) 05/08/2024 1:59 P M EDT Height - - Body Mass Index 30 03/27/2024 12:09 PM EDT documented in this [...] as of this encounter Progress Notes * Rain Medellin CRNP - 05/08/2024 2:04 PM EDT DATE OF SERVICE: 05/08/24 REFERRING PHYSICIAN: Lokesh Amin MD CC: 05/08/24: He stopped taking Questran as it was hard to time it between other meds. He is currently also taking Mg Oxide 400mg bid. Having loose stools usually first 2 times in the morning. No abd pain, n/v, rectal bleeding. Office Visit 06/02/2023 (seen by MICA Rodriguez): Stopped the Magnesium. Cut back on Questran. Is now using 1/2 pack daily. Stools are solid. Diarrhea resolved. Stools move daily. Can go between 1-3 times daily. No black or bloody stools. No abd pain. No nausea, vomiting. Tolerating PO intake. No GERD. Weight stable. No fever, chills, CP, SOB. Office Visit 03/02/2023 (seen by MICA Rodriguez): 77 year old male with history of cardiac pacer, HTN, glaucoma, PAF, T2DM, CKD, HTN, CAD, S/P AVR, acute severe gallstone pancreatitis s/p ccy and [place] [address] Mendez , s/p left hemicolectomy w/ hernia repair for diverticulitis and left flank abscess referred for eval of loose stools at the request of Dr. Amin. Pt was seen and evaluated, chart reviewed. Notes that he has intermittent loose, urgent stools. He has even had some accidents. Suggests first movement of the day is typically normal semi-formed. This is followed by loose, frequent stools every 30 minutes until he feels emptied. He notes this typically happens after breakfast. He does not typically move stool again, but if he does have more movements they are soft still. No black or bloody stools. No mucous. No nocturnal bowel movements. He had some accidents because of urgent stools and unable to find a restroom in time. No UGI symptoms. No nausea, vomiting. No abd cramping. Can be with BMs or without. No GERD. Is on Pantoprazole.No dysphagia. Weight stable. No fever, chills, CP, SOB. Had resection due for complicated diverticulitis Had CCY, appendectomy Has had numerous hernia repairs and revision with MESH due to a complicated course following pancreatitis NSAIDs: none ETOH: glass of wine ABX: for dental appt Stools 2022: negative Colon 2022: Diverticulosis in the sigmoid colon. - The examination was otherwise normal on direct and retroflexion views. - No specimens collected. Colon 2015: Diverticulosis from sigmoid to descending colon. - No specimens collected. - Otherwise normal to the terminal ileum, with retroflexed views of the ascending colon and rectum. Colon 2005: Diverticulosis. - Terreton-colonic anastomosis in the sigmoid colon. - The exam was otherwise normal to the cecum. 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 Bowel obstruction (HCC) Cardiac pacemaker in situ 11/19/2020 Diverticulitis of colon Glaucoma 01/30/2007 dr rivas HTN, goal below 140/90 12/11/2018 Impotence of organic origin Left carotid stenosis 08/18/2020 PAF (paroxysmal atrial fibrillation) ([facility]) 02/01/2022 Panniculitis 03/07/2012 Type 2 diabetes mellitus with hemoglobin A1c goal of less than 8.0% ([facility]) 08/24/2022 Family History Problem Relation Name Age of Onset Diabetes Father Heart Disorder Father Heart Disorder Mother Thyroid Disorder Brother Past Surgical History: Procedure Laterality Date COLONOSCOPY 11/18/2005 Normal repeat in 10 years COLONOSCOPY, DIAGNOSTIC (RECTUM) 01/21/2016 diverticulosis, repeat 10 yrs/COLONOSCOPY FLEXIBLE PROXIMAL DIAGNOSTIC performed by Steve Bahena MD at ENDOSCOPY [facility] COLONOSCOPY, DIAGNOSTIC (RECTUM) 05/19/2023 dvierticulosis / COLONOSCOPY FLEXIBLE PROXIMAL DIAGNOSTIC performed by Freddy Arthur MD at ENDOSCOPY [facility] CYSTOSCOPY 02/26/2013 CYSTOSCOPY 08/05/2014 CYSTOSCOPY 12/26/2014 CYSTOSCOPY/DILATE BLADDER N/A 01/27/2015 CYSTOURETHROSCOPY DILATION BLADDER GENERAL ANESTHESIA performed by Colt North MD at [facility] CYSTOSCOPY/TREAT MINOR LESION(S) N/A 01/27/2015 CYSTOURETHROSCOPY WITH FULGURATION MINOR BLADDER TUMOR performed by Colt North MD at [facility] IMPLANT MESH W/ ABD HERNIA REPR/DEBRIDE 08/14/2012 IMPLANTATION MESH WITH INCISIONAL/VENTRAL HERNIA performed by Adryan Kunz MD at [facility] MUSCLE-SKIN FLAP, TRUNK 10/18/2011 MUSCLE MYOCUTANEOUS OR FASCIOCUTANEOUS FLAP TRUNK performed by NANCY GARCIA at [facility] MUSCLE-SKIN FLAP, TRUNK 10/25/2011 MUSCLE MYOCUTANEOUS OR FASCIOCUTANEOUS FLAP TRUNK performed by NANCY GARCIA at [facility] PARTIAL REMOVAL OF COLON REMOVAL OF APPENDIX REMOVAL OF PROSTATE (TURP) 01/27/2015 TRANSURETHRAL RESECTION PROSTATE ELECTROSURGICAL performed by Colt North MD at [facility] REMOVAL OF TONSILS, UNDER AGE 12 REMOVE GALLBLADDER REPAIR INITIAL INCISIONAL OR VENTRAL HERNIA; REDUCIBLE 04/25/2011 REPAIR INITIAL INCISIONAL /VENTRAL HERNIA REDUCIBLE performed by [place] CHRISTINE at [place] [facility]not performed REPAIR INITIAL INCISIONAL OR VENTRAL HERNIA; REDUCIBLE 09/22/2011 REPAIR INITIAL INCISIONAL /VENTRAL HERNIA REDUCIBLE performed by [place] CHRISTINE at [place] [facility] REPAIR INITIAL INCISIONAL OR VENTRAL HERNIA; REDUCIBLE 10/25/2011 REPAIR INITIAL INCISIONAL /VENTRAL HERNIA REDUCIBLE performed by [place] CHRISTINE at [place] [facility] REPAIR INITIAL INCISIONAL OR VENTRAL HERNIA; REDUCIBLE 08/14/2012 REPAIR INITIAL INCISIONAL /VENTRAL HERNIA REDUCIBLE performed by Adryan Kunz MD at [facility] REPLACEMENT AORTIC VALVE, BYPASS WITH PROSTHETIC VALVE N/A 07/10/2020 REPLACEMENT AORTIC VALVE, BYPASS WITH PROSTHETIC VALVE performed by Ag Ballesteros MD at [facility] TOTAL HIP REPLACEMENT & PROSTHESIS 11/04/2013 Right - Dr. Barbosa Social History Tobacco Use Smoking status: Former Types: Cigars Quit date: 04/17/2010 Years since quittin.0 Smokeless tobacco: Never Vaping Use Vaping status: Never Used Substance Use Topics Alcohol use: Yes Alcohol/week: 5.8 standard drinks of alcohol Types: 7 5 oz of wine per week Comment: a glass in the evening on occasion Drug use: No Review of patient's allergies indicates: Allergen Reactions [...] Silver 50+Men Oral Tablet Take by mouth. OneTouch Verio In Vitro Strip (Glucose Blood) Use up to check sugars first thing in am and 2 hours after meals 100 Strip 1 OneTouch UltraSoft Lancets Use up to check [...] two tablets twice daily 360 Tablet 3 Magnesium Oxide 400 MG Oral Tablet Take 1 Tablet by mouth in the morning and 1 Tablet before bedtime. amoxicillin (AMOXIL) 500 MG Capsule Take 1 Capsule by mouth daily as needed. Patient takes prior todental appointments. Albuterol Sulfate HFA 108 (90 Base) MCG/ACT Inhalation Aerosol Solution Inhale 2 Puffs by mouth 4 times a day. 54 g 3 Abrysvo 120 MCG/0.5ML Intramuscular Solution Reconstituted (RSV Pre-Fusion F A&B Vac Rc) as directed (Patient not taking: Reported on 03/27/2024) 1 Each 0 OneTouch Verio w/Device Kit Use up to check sugar first thing in am and 2 hours after meals 1 Kit 0 Current Facility-Administered Medications Medication Dose Route Frequency Provider Last Rate Last Admin Testosterone Cypionate (Depotestosterone Cypionate) 200 MG/ML inj 100 mg 100 mg Intramuscular Q Month Justen Ewing DO 100 mg at 05/06/24 1421 REVIEW OF SYSTEMS: All other findings negative except as noted in HPI. EXAM: BP 102/68 | Pulse 86 | Temp 36.6 C (97.9 F) | Wt 88.2 kg (194 lb 6.4 oz) | BMI 30.00 kg/m | BSA 2.05 m GENERAL: Well developed and well nourished in no acute distress. SKIN: No rashes, ulcers, jaundice or spider angiomata. HEENT: Normocephalic, sclera clear. NECK: Supple, trachea midline, no JVD. LUNGS: Clear to auscultation bilaterally, no respiratory distress or accessory muscles used. HEART: Regular rate & rhythm, no murmurs and no gallops. ABDOMEN: Normal bowel sounds, soft and nontender, no masses or hepatosplenomegaly. EXTREMITIES: No palmar erythema, no ankle edema, no skin discoloration, no clubbing, no cyanosis. NEURO: No lateralizing findings. Sensory/Motor grossly normal. ASSESSMENT AND PLAN: 78 year old male with history of cardiac pacer, HTN, glaucoma, PAF, T2DM, CKD,HTN, CAD, S/P AVR, acute gallstone pancreatitis s/p ccy, s/p left hemicolectomy w/ hernia repair for diverticulitis and left flank abscess. Was having issues with loose stools which was resolved w Questran. However he stopped Questran as it's hard to time it in between other meds, and currently on Mg supplement thus diarrhea returns. - Trial Colestipol 1g daily - Discuss w PCP regarding continued Mg Oxide use - Consider stool studies if diarrhea persist - ED for emergencies - Please call with any questions or concerns RETURN TO CLINIC: 3 months or sooner prn I spent a total of 30 minutes on the date of service in review of patient's record, and previously obtained information in person and appropriate medical visit, discussion and education of plan, withpatient and/or caregiver, placing orders for tests/referral/procedures as medically necessary and documentation of pertinent clinical information in patient's medical records for their visit today. MICA Metcalf [facility] documented in this encounter Nursing Notes * Sumaya Lujan CMA - 05/08/2024 1:59 PM EDT Chief Complaint Patient presents with Follow Up Former pt of Mis. Pt here to f/u for loose stools. Pt still having issues/no improvement. Pt is now on Mag BID and insulin. documented in this encounter Plan of Treatment Upcoming Encounters Date Type Department Care Team (Late st Contact Info) Description 05/14/2024 1:45 PM EDT Office Visit MOHS [facility] [address] [facility] [address] [facility] [address] [facility] [address] 06/06/2024 1:30 PM EDT Office Visit Pharmacy, [address] [place] [address] Pharmacist1, [facility] [address] [facility] [place] [address] 06/06/2024 2:00 PM EDT Nurse Only Ancillary [address] [place] [address] Nurse, Int Med [address] [place] [address] [place] [address] 08/28/2024 1:30 PM EST Office Visit Gastroenterology, [facility] [address] [place] [address] Rain Medellin CRNP [address] [place] [address] 10/14/2024 3:00 PM EST Office Visit Cardiology, [facility] [address] [place] [address] Fabian Mejia PA-C [address] [place] [address] 11/14/2024 2:00 PM EST Office Visit General Internal Medicine [facility] [address] [facility] [place], [place] [address] Lokesh Amin MD [address] [facility] [place] [address] 03/18/2025 10:45 AM EDT Office Visit Dermatology [facility] [address] [facility] [place] [address] Lokesh Mayen MD [address] [facility] [place], [place] [address] Scheduled Procedures Name Priority Associated Diagnoses Date/Ti [...] 070 11/2023, 09/26/2023, Additional history exists GFR 11/06/2024 05/06/2024, 08/0 10/2023, 04/15/2024, Additional history exists CKD PHOS USE SMARTSET 77357 03/27/2025 07/0 11/2023, 09/26/2023, 08/23/2022, Additional history exists Depression Screening 03/27/2025 03/27/2024 Diabetic Foot Exam 03/27/2025 03/27/2024, 02/21/2023 CKD HGB USE SMARTSET 29135 04/26/202504/26, 04/26/2024, 04/15/2024, Additional history exists DTaP,Tdap,and [...] this encounter Medical Devices Implanted Type Area Retail Customer Service Representative Device Identifier Shelf Expiration Date Model / Serial / Lot Strattice 44w00in (400 Units) - [id number] Implanted:Qty : 400 on 10/25/2011 at [place] [facility] Abdomen LIFE CELL MISTY 12/23/2012 [id number] / / [id number] Mesh Prolit Hernia [id number] - [id number] Implanted:Qty : 1 on 08/14/2012 at [facility] Left: Abdomen [employer] MISTY 12/24/2015 [id number] / / [id number] Suture Steel 6 B&S19 M654g - [id number] Implanted:Qty : 3 on 07/10/2020 by Ag Ballesteros MD at [facility] N/A: Sternum JNJ : [employer] 02/22/2025 M654G / / [id number] Valve Heart Aortic Epic 23mm - [id number] - [id number] Implanted:Qty : 1 on 07/10/2020 by Ag Ballesteros MD at [facility] N/A: Aorta ST DOMINIK : CARDIOVASCULAR [id number] 03/22/2024 [id number] 00 / [id number] / [id number] documented as of this encounter Visit Diagnoses Diagnosis Chronic diarrhea- Primary Diarrhea documented in this encounter Advance Directives * [...] and were consensually agreed upon. Care Teams Leather Parts Matcher Relationship Specialty Start Date End Date Lokesh Amin MD [address] [place] [address] PCP - General Internal Medicine 07/22/21 documented as of this encounter"
--- OUTSIDE RECORDS SUMMARY | 2024-07-19 11:37 | External Medical Summary | Summary of Care ---
Author Name Unknown Organization [facility] Address [address] [place] [address] Phone [phone] Care Team Providers Care Fibreglass Laminator Name Role Phone Lokesh Amin MD Primary Care Provider + Reason for Visit * Reason Comments Outpatient Testing Encounter Details Date Type Department Care Team (Late st Contact Info) Description 05/13/2024 2:30 PM EDT Laboratory Laboratory, [facility] [address] [place] [address] [facility] [address] [place] [address] [employer] Other*[id number]; Hypomagnesemia Allergies Active Allergy Reactions Criticality Noted Date Comments Demerol Neuro complications (Please comment) High 06/14/2010 confusion Adhesive Tape Rash Low 06/14/2010 documented as of this encounter (statuses as of 05/13/2024) Medications Medication Sig Dispensed Refills Start Date [...] Oral Tablet Take by mouth. Ac tive Horse CollaborativeTouch Verio w/Device KitIndications:Type 2 diabetes mellitus with hemoglobin A1c goal of less than 8.0% ([facility]) Use up to check sugar first thing in am and 2 hours after meals 1 Kit 04/04/2024 Active Horse CollaborativeTouch Verio In Vitro Strip (Glucose Blood)Indications:T ype [...] A1c goal of less than 8.0% ([facility]) Inject 10 Units under the skin daily. Titrating dose - max dose 30 units daily. DX: E11.9 5 Each 04/04/2024 Active Insulin Pen Needle 32G X 6 MMIndications:Type 2 diabetes mellitus with hemoglobin A1c goal of less than 8.0% ([facility]) Use to inject insulin once daily. 100 Each 3 04/04/2024 Active metFORMIN HCl ER 500 MG Oral Tablet Extended Release 24 Hour (Glucophage XR)Indications:Type 2 diabetes mellitus with hemoglobin A1c goal of less than 8.0% ([facility]) Take 2 Tablets by mouth [...] as of this encounter (statuses as of 05/13/2024) Active Problems Problem Noted Date Diagnosed Date [...] as of this encounter (statuses as of 05/13/2024) Resolved Problems Problem Noted Date Diagnosed Date [...] as of this encounter (statuses as of 05/13/2024) Immunizations Name Administration Dates Next Due COVID-19 mRNA, LNP-s, No Pre serve, 2-Dose Series ([employer]) 06/29/2021,12/15/2020,11/24/2020 COVID-19, LNP-s, No Preserve , Deric-sucrose, Ages 12+ (Pfizer) 02/04/2022 COVID-19, MRNA-LNP, 23-24, P F, 30 MCG/0.3 mL, 12 YRS AND ABOVE, IM ([employer]) 10/10/2023 Covid-19, Mrna, Lnp-s, Pf, B ivalent, [...] 1:45 PM EDT Office Visit MOHS Surgery [facility] [place] [address] [place] [address] Becky Gordon MD [address] [place] [address] 06/06/2024 1:30 PM EDT [facility] [place] [address] [place] [address] Pharmacist1, [facility] [address] [facility] [place] [address] 06/06/2024 2:00 PM EDT Nurse Only Ancillary [facility] [place] [address] [place] [address] Nurse, Int Med [address] [facility] [place] [address] 08/28/2024 1:30 PM EST Office Visit Gastroenterology, [facility] [address] [place] [address] Rain Medellin CRNP [address] [address] 10/14/2024 3:00 PM EST Office Visit Cardiology, [facility] [address] [place] [address] Fabian Mejia PA-C [address] [place] [address] 11/14/2024 2:00 PM EST Office Visit General Internal Medicine [facility] 200 [facility] [place] [address] Lokesh Amin MD 200 [facility] [place] [address] 03/18/2025 10:45 AM EDT Office Visit Dermatology [facility] 200 [facility] [place] [address] Lokesh Mayen MD 200 [facility] [place] [address] Pending Results Name Type Priority Associated Diagnoses Date /Time MYCODE SUBSEQUENT ADULT Lab Routine [employer] Other*[id number] 05/13/2024 1:58 PM EDT BASIC METABOLIC PANEL Lab STAT Hypomagnesemia 05/13/2024 1:58 PM EDT MAGNESIUM Lab STAT Hypomagnesemia 05/13/2024 1:58 PM EDT MYCODE SST1 Lab Routine [employer] Other*[id number] 05/13/2024 1:58 PM EDT MYCODE SST2 Lab Routine [employer] Other*[id number] 05/13/2024 1:58 PM EDT Scheduled Procedures Name Priority Associated [...] Additional history exists CKD PHOS USE SMARTSET 50122 03/27/2025 070 11/2023, 09/26/2023, 08/23/2022, Additional history exists Depression Screening 03/27/2025 03/27/2024 Diabetic Foot Exam 03/27/2025 03/27/2024, 02/21/2023 CKD HGB USE SMARTSET 36665 04/26/202504/26, 04/26/2024, 04/15/2024, Additional history exists DTaP,Tdap,and [...] this encounter Medical Devices Implanted Type Area Operational Intelligence Officer Device Identifier Shelf Expiration Date Model / Serial / Lot Strattice [id number] (400 Units) - [id number] Implanted:Qty : 400 on 10/25/2011 at [place] [facility] Abdomen LIFE CELL MISTY 12/23/[id number] / / [id number] Mesh Prolit Hernia [id number] - [id number] Implanted:Qty : 1 on 08/14/2012 at [place] [facility] Left: Abdomen [employer] MISTY 12/24/2015 [id number] / / [id number] Suture Steel 6 B&S19 M654g - [id number] Implanted:Qty : 3 on 07/10/2020 by Ag Ballesteros MD at [facility] N/A: Sternum JNJ : [employer] 02/22/2025 M654G / / [id number] Valve Heart Aortic Epic 23mm - [id number] - [id number] Implanted:Qty : 1 on 07/10/2020 by Ag Ballesteros MD at OR [facility] N/A: Aorta ST DOMINIK : CARDIOVASCULAR [id number] 03/22/2024 [id number] 00 / [id number] / [id number] documented as of this encounter Visit Diagnoses Diagnosis [employer] Other*[id number] Hypomagnesemia Disorders of magnesium metabolism documented in [...] and were consensually agreed upon. Care Teams Fibreglass Laminator Relationship Specialty Start Date End Date Lokesh Amin MD [address] [place] [address], [place] [address] PCP - General Internal Medicine 07/22/21 documented as of this encounter
--- OUTSIDE RECORDS SUMMARY | 2024-07-19 11:37 | External Medical Summary ---
Author Name Unknown Address Unknown Organization K01:[facility] - [address] [place] [address] Laboratory Report Ordering Provider Test Date Status MICHAEL TRACY 05/13/2024 13:58:48 Final Observation Date Value Abnormality Reference (Units ) Status MYCODE SPECIMEN-SST 05/13/2024 13:58:48 Freezing of extracted DNA, whole blood and/or serum. Final Performing Location [facility] - [address] [place] [address]
--- OUTSIDE RECORDS SUMMARY | 2024-07-19 11:37 | External Medical Summary | Summary of Care ---
Author Name Unknown Organization [facility] Address [address] [place] [address] Phone [phone] Care Team Providers Care Strategic Sourcing Consultant Name Role Phone Lokesh Amin MD Primary Care Provider + Reason for Visit * Reason Comments Outpatient Testing Encounter Details Date Type Department Care Team (Late st Contact Info) Description 05/06/2024 2:50 PM EDT Laboratory Laboratory [facility] [address] [place] [phone] [facility] Scene [address] [place] [address] Hypomagnesemia Allergies Active Allergy Reactions Criticality Noted [...] Oral Tablet Take by mouth. Ac tive LE TOTEuch Verio w/Device KitIndications:Type 2 diabetes mellitus with hemoglobin A1c goal of less than 8.0% ([facility]) Use up to check sugar first thing in am and 2 hours after meals 1 Kit 04/04/2024 Active Four InteractiveTouch Verio In Vitro Strip (Glucose Blood)Indications:T ype [...] mRNA, LNP-s, No Pre serve, 2-Dose Series (Or[employer]) 06/29/2021,12/15/2020,11/24/2020 COVID-19, LNP-s, No Preserve , Deric-sucrose, Ages 12+ (Orbotix) 02/04/2022 COVID-19, MRNA-LNP, 23-24, P F, 30 MCG/0.3 mL, 12 YRS AND ABOVE, IM ([facility] 10/10/2023 Covid-19, Mrna, Lnp-s, Pf, B ivalent, 30 Mcg, IM, 12 yrs and above (Orbotix) 03/02/2023 Hepatitis B, 20+ yrs 04/01/2024,2023,09/29 Pneumococcal [...] 05/08/2024 2:00 PM EDT Office Visit Gastroenterology, [facility] [address] [place] [address] Rain Medellin CRNP [address] [facility] [place] [address] 05/14/2024 1:45 PM EDT Office Visit MOHS Surgery [facility] [place] [address] [facility] [place] [address] Becky Gordon MD [address] [facility] [place] [address] 06/06/2024 1:30 PM EDT Office Visit Pharmacy, [facility] [place] [address] [place] [address] Pharmacist1, [facility] [address] [facility] [place] [address] 06/06/2024 2:00 PM EDT Nurse Only Ancillary [facility] [place] [address] [place] [address] Nurse, Int Med [address] [place] [address] 10/14/2024 3:00 PM EST Office Visit Cardiology, [facility] [address] [place] [address] Fabian Mejia PA-C [address] [place] [address] 11/14/2024 2:00 PM EST Office Visit General Internal Medicine [facility] [address] [facility] [place] [address] Lokesh Amin MD 200 [facility] [place] [address] 03/18/2025 10:45 AM EDT Office Visit Dermatology [facility] [address] [facility] [place] [address] Lokesh Mayen MD [address] [facility] [place] [address] Pending Results Name Type Priority Associated Diagnoses Date /Time MAGNESIUM Lab Routine Hypomagnesemia 05/06/2024 2:40 PM EDT BASIC METABOLIC PANEL Lab Routine Hypomagnesemia 05/06/2024 2:40 PM EDT Scheduled Procedures Name Priority Associated [...] 07/0 11/2023, 09/26/2023, Additional history exists GFR 10/27/2024 04/26/2024, 03/26, 04/10/2024, Additional history exists CKD PHOS USE SMARTSET 03037 03/27/2025 07/0 11/2023, 09/26/2023, 08/23/2022, Additional history exists Depression Screening 03/27/2025 03/27/2024 Diabetic Foot Exam 03/27/2025 03/27/2024, 02/21/2023 CKD HGB USE SMARTSET 62996 04/26/202504/26, 04/26/2024, 04/15/2024, Additional history exists DTaP,Tdap,and [...] this encounter Medical Devices Implanted Type Area Press Cleaner Device Identifier Shelf Expiration Date Model / Serial / Lot Strattice [id number] (400 Units) - [id number] Implanted:Qty : 400 on 10/25/2011 [place] [facility] [place] Abdomen LIFE CELL MISTY 12/23/2012 [id number] / / [id number] Mesh Prolit Hernia [id number] - [id number] Implanted:Qty : 1 on 08/14/2012 at [place] [facility] [place] Left: Abdomen [employer] M[employer] 12/24/2015 [id number] / / [id number] Suture Steel 6 B&S19 M654g - [id number] Implanted:Qty : 3 on 07/10/2020 by Ag Ballesteros MD at [place] [facility] [place] N/A: Sternum JNJ : [employer] 02/22/2025 M654G / / [id number] Valve Heart Aortic Epic 23mm - [id number] - [id number] Implanted:Qty : 1 on 07/10/2020 by Ag Ballesteros MD at [place] [facility] N/A: Aorta ST DOMINIK : CARDIOVASCULAR [id number] 03/22/2024 [id number]- 00 / [id number] / [id number] documented as of this encounter Visit Diagnoses [...] and were consensually agreed upon. Care Teams Strategic Sourcing Consultant Relationship Specialty Start Date End Date Lokesh Amin MD [address] [place] [address] PCP - General Internal Medicine 07/22/21 documented as of this encounter
--- OUTSIDE RECORDS SUMMARY | 2024-07-19 11:37 | External Medical Summary | Summary of Care ---
Author Name Unknown Organization [facility] Address [address] [place] [address] Phone [phone] Care Team Providers Care Rim Fire Priming Tool Setter Name Role Phone Lokesh Amin MD Primary Care Provider + Reason for Visit * Reason Onset Date Comments Ultrasound 05/12/2024 Encounter Details Date Type Department Care Team (Late st Contact Info) Description 05/12/2024 Telephone General Internal Medicine [facility] [address] [place] [address] Lokesh Amin MD 200 [place] [address] Ultrasound (/) Allergies Active Allergy Reactions Criticality [...] Oral Tablet Take by mouth. Ac tive Urban Ladderuch Verio w/Device KitIndications:Type 2 diabetes mellitus with hemoglobin A1c goal of less than 8.0% ([facility]) Use up to check sugar first thing in am and 2 hours after meals 1 Kit 04/04/2024 Active CameroTouch Verio In Vitro Strip (Glucose Blood)Indications:T ype [...] hemoglobin A1c goal of less than 8.0% ([facility]) Inject 10 Units under the skin daily. Titrating dose - max dose 30 units daily. DX: E11.9 5 Each 04/04/2024 Active Insulin Pen Needle 32G X 6 MMIndications:Type 2 diabetes mellitus with hemoglobin A1c goal of less than 8.0% ([facility]) Use to inject insulin once daily. 100 Each 04/04/2024 Active metFORMIN HCl ER 500 MG Oral Tablet Extended Release 24 Hour (Glucophage XR)Indications:Type 2 diabetes mellitus with hemoglobin A1c goal of less than 8.0% ([facility]) Take 2 Tablets by mouth [...] mRNA, LNP-s, No Pre serve, 2-Dose Series ([employer]) 06/29/2021,12/15/2020,11/24/2020 COVID-19, LNP-s, No Preserve , Deric-sucrose, Ages 12+ (Pfizer) 02/04/2022 COVID-19, MRNA-LNP, 23-24, P F, 30 MCG/0.3 mL, 12 YRS AND ABOVE, IM ([employer]) 10/10/2023 Covid-19, Mrna, Lnp-s, Pf, B ivalent, [...] Telephone Encounter - Sunshine Perales OSA - 05/13/2024 1:45 PM EDT Apt scheduled * Telephone Encounter - Lokesh Amin MD - 05/12/2024 1:12 PM EDT Patient due for f/u carotid u/s at [facility] to re-assess carotid arteries in neck, pls schedule documented in this encounter Plan of Treatment Upcoming Encounters Date Type Department Care Team (Late st Contact Info) Description 05/14/2024 1:45 PM EDT Office Visit MOHS Surgery [facility] [place] [address] [place] [address] Becky Gordon MD [address] [place] [phone] 06/06/2024 1:30 PM EDT Office Visit Pharmacy, [facility] [place] [address] [place] [address] [address] Pharmacist1, [facility] [address] [place] [address] 06/06/2024 2:00 PM EDT Nurse Only Ancillary [facility] [place] [facility] [place] [address] Nurse, Int Med [address] [place] [address] 08/28/2024 1:30 PM EST Office Visit Gastroenterology, [facility] [address] [place] [address] Rain Medellin CRNP [address] [place] [address] 10/14/2024 3:00 PM EST Office Visit Cardiology, [facility] [address] [place] [address] Fabian Mejia PAParishC [address] [place] [address] 11/14/2024 2:00 PM EST Office Visit General Internal Medicine [facility] [place] [address] [place] [address] Lokesh Amin MD 200 [facility] [place] [address] 03/18/2025 10:45 AM EDT Office Visit Dermatology [facility] [place] [address] [place] [address] Lokesh Mayen MD 200 [facility] [place] [address] Pending Results Name Type Priority Associated Diagnoses Date /Time VASC DUPLEX CAROTID BILAT Medical Imaging Routine Left carotid stenosis 05/13/2024 1:27 PM EDT Scheduled Procedures Name Priority Associated [...] 04/15/2024, 11/2023, 09/26/2023, Additional history exists GFR 11/06/2024 05/06/2024, 10/2023, 04/15/2024, Additional history exists CKD PHOS USE SMARTSET 14543 03/27/2025 070 11/2023, 09/26/2023, 08/23/2022, Additional history exists Depression Screening 03/27/2025 03/27/2024 Diabetic Foot Exam 03/27/2025 03/27/2024, 02/21/2023 CKD HGB USE SMARTSET 52993 04/26/202504/26, 04/26/2024, 04/15/2024, Additional history exists DTaP,Tdap,and [...] this encounter Medical Devices Implanted Type Area Move Coordinator Device Identifier Shelf Expiration Date Model / Serial / Lot Strattice [id number] (400 Units) - [id number] Implanted:Qty : 400 [place] 10[place]25/2011 [place] [facility] [place]domen LIFE CELL MISTY 12/23/2012 [id number] / / [id number] Mesh Prolit Hernia [id number] - [id number] Implanted:Qty : 1 on 08/14/2012 at [facility] Left: Abdomen [employer] M[employer] 12/24/2015 [id number] / / [id number] Suture Steel 6 B&S19 M654g - [id number] Implanted:Qty : 3 on 07/10/2020 by Ag Ballesteros MD [place] [facility] [place] N/A: Sternum JNJ : [employer] 02/22/2025 M654G / / QGBABE Valve Heart Aortic Epic 23mm - [id number] - [id number] Implanted:Qty : 1 on 07/10/2020 by Ag Ballesteros MD [place] [facility] [place] N/A: Aorta ST DOMINIK : CARDIOVASCULAR [id number] 03/22/2024 SZE365-50- 00 / [id number] / [id number] documented as of this encounter Visit Diagnoses [...] and were consensually agreed upon. Care Teams Rim Fire Priming Tool Setter Relationship Specialty Start Date End Date Lokesh Amin MD [address] [place] [address], [place] [address] PCP - General Internal Medicine 07/22/21 documented as of this encounter
--- OUTSIDE RECORDS SUMMARY | 2024-07-19 11:38 | External Medical Summary ---
Author Name Unknown Address Unknown Organization K09:[facility] [place] [address] Laboratory Report Ordering Provider Test Date Status COREY JARAMILLO 05/06/2024 14:40:02 Final Observation Date Value Abnormality Reference (Units ) Status BUN 05/06/2024 14:40:02 20 6-20 (mg/dL) Final Creatinine 05/06/2024 14:40:02 1.5 Above high normal 0.6-1.2 (mg/dL) Final Glomerular filtration rate/1.73 sq M.predicted [Volume Rate/Area] in Serum, Plasma or Blood by Creatinine-based formula (CKD-EPI) 05/06/2024 14:40:02 50 Below low normal >=60 (mL/min) Final eGFR is calculated based on the CKD-EPI 2020 equation. Sodium 05/06/2024 14:40:02 141 135-146 (m mol/L) Final Potassium 05/06/2024 14:40:02 4.0 3.5-5.1 (m mol/L) Final Cl 05/06/2024 14:40:02 100 98-107 (mm ol/L) Final CO2 05/06/2024 14:40:02 27 22-32 (mmo l/L) Final Anion gap 05/06/2024 14:40:02 14 7-15 (mmol /L) Final Glucose 05/06/2024 14:40:02 84 70-120 (mg /dL) Final Calcium 05/06/2024 14:40:02 8.9 8.4-10.2 ( mg/dL) Final Performing Location [facility] [place] [address]
--- OUTSIDE RECORDS SUMMARY | 2024-07-19 11:38 | External Medical Summary | Summary of Care ---
Author Name Unknown Organization [facility] Address [address] [place] [address] Phone [phone] Care Team Providers Care Sponge Fisherman Name Role Phone Lokesh Amin MD Primary Care Provider + Encounter Details Date Type Department Care Team (Late st Contact Info) Description 05/06/2024 Orders Only Outcomes Research Department [address] [place] [address] Edwige Ca CHRA retickr Research Other*[id number] Allergies Active Allergy Reactions Criticality Noted Date [...] hemoglobin A1c goal of less than 8.0% ([facility]) Use up to check sugar first thing in am and 2 hours after meals 1 Kit 04/04/2024 Active EquipboardTouch Verio In Vitro Strip (Glucose Blood)Indications:T ype 2 diabetes mellitus with hemoglobin A1c goal of less than 8.0% ([facility]) Use up to check sugars first thing in am and 2 hours after meals 100 Strip 1 04/04/2024 Active EquipboardTouch UltraSoft LancetsIndications: Type 2 diabetes mellitus with [...] mRNA, LNP-s, No Pre serve, 2-Dose Series ([employer]) 06/29/2021,12/15/2020,11/24/2020 COVID-19, LNP-s, No Preserve , Deric-sucrose, Ages 12+ (Pfizer) 02/04/2022 COVID-19, MRNA-LNP, 23-24, P F, 30 MCG/0.3 mL, 12 YRS AND ABOVE, IM ([facility]) 10/10/2023 Covid-19, Mrna, Lnp-s, Pf, B ivalent, 30 Mcg, IM, 12 yrs and above (DataRPM) 03/02/2023 Hepatitis B, 20+ yrs 04/01/2024,2023,09/29 Pneumococcal [...] Team (Late st Contact Info) Description 05/06/2024 2:00 PM EDT Nurse Only Ancillary [facility] [address] [facility] [place] [address] Nurse, Int Med [address] [place] [address] 05/06/2024 2:20 PM EDT Office Visit Pharmacy, [facility] [address] [facility] [place] [address] Pharmacist1, [facility] [address] [facility] [place] [address] 05/08/2024 2:00 PM EDT Office Visit Gastroenterology, [facility] [address] [place] [address] Rain Medellin CRNP [address] [place] [address] 05/14/2024 1:45 PM EDT Office Visit MOHS Surgery [facility] [address] [facility] [place] [address] Becky Gordon MD [address] [facility] [place] [address] 10/14/2024 3:00 PM EST Office Visit Cardiology, [facility] [address] [place] [address] Fabian Mejia PA-C [address] [place] [address] 11/14/2024 2:00 PM EST Office Visit General Internal Medicine [facility] [address] [facility] [place], [place] [address] Lokesh Amin MD [address] [facility] [place], [place] [address] 03/18/2025 10:45 AM EDT Office Visit Dermatology [facility] [address] [facility] [place] [address] Lokesh Mayen MD [address] [facility] [place], [place] [address] Scheduled Orders Name Type Priority Associated Diagnoses Orde r Schedule MYCODE SUBSEQUENT ADULT Lab Routine MyCode Research Other*[id number] Every 6 Months for 2 Occurrences starting 05/06/2024 until 05/26/2025 Scheduled Procedures Name Priority Associated Diagnoses Date/Ti [...] 04/15/2024, 11/2023, 09/26/2023, Additional history exists GFR 10/27/2024 04/26/2024, 03/26, 04/10/2024, Additional history exists CKD PHOS USE SMARTSET 33123 03/27/2025 07/0 11/2023, 09/26/2023, 08/23/2022, Additional history exists Depression Screening 03/27/2025 03/27/2024 Diabetic Foot Exam 03/27/2025 03/27/2024, 02/21/2023 CKD HGB USE SMARTSET 10601 04/26/202504/26, 04/26/2024, 04/15/2024, Additional history exists DTaP,Tdap,and [...] this encounter Medical Devices Implanted Type Area Shift Mgr Device Identifier Shelf Expiration Date Model / Serial / Lot Strattice [id number] (400 Units) - [id number] Implanted:Qty : 400 on 10/25/2011 [place] [facility] [place]domen LIFE CELL MISTY 12/23/2012 [id number] / / [id number] Mesh Prolit Hernia [id number] - [id number] Implanted:Qty : 1 on 08/14/2012 at [place] [facility] [place] Left: Abdomen [employer] MISTY 12/24/2015 [id number] / / [id number] Suture Steel 6 B&S19 M654g - [id number] Implanted:Qty : 3 on 07/10/2020 by Ag Ballesteros MD at [place] [facility] [place] N/A: Sternum JNJ : [employer] 02/22/2025 M654G / / QGBABE Valve Heart Aortic Epic 23mm - [id number] - [id number] Implanted:Qty : 1 on 07/10/2020 by Ag Ballesteros MD at [place] [facility] [place] N/A: Aorta ST DOMINIK : CARDIOVASCULAR [id number] 03/22/2024 XCG111-10- 00 / [id number] / [id number] documented as of this encounter Visit Diagnoses Diagnosis MyCode Research Other*[id number] documented in this encounter Advance Directives * [...] and were consensually agreed upon. Care Teams Sponge Fisherman Relationship Specialty Start Date End Date Lokesh Amin MD 200 [facility] [place] [address] PCP - General Internal Medicine 07/22/21 documented as of this encounter
--- OUTSIDE RECORDS SUMMARY | 2024-07-19 11:38 | External Medical Summary | Summary of Care ---
Author Name Unknown Organization [facility] Address [address] [place] [address] Phone [phone] Care Team Providers Care Addiction Social Worker Name Role Phone Lokesh Amin MD Primary Care Provider + Reason for Visit * Reason Comments Follow Up Encounter Details Date Type Department Care Team (Late st Contact Info) Description 04/26/2024 2:00 PM EDT Office Visit MOH Surgery [facility] [address] [place] [address] Becky Gordon MD [address] [place] [address] Visit for wound check*; Status post reconstruction procedure Allergies Active Allergy Reactions Criticality Noted Date Comments Demerol Neuro complications (Please comment) High 06/14/2010 confusion Adhesive Tape Rash Low 06/14/2010 documented as of this encounter (statuses as of 05/05/2024) Medications Medication Sig Dispensed Refills Start Date [...] hemoglobin A1c goal of less than 8.0% ([facility]) Use up to check sugar [...] hemoglobin A1c goal of less than 8.0% ([facility]) Inject 10 Units under the skin daily. Titrating dose - max dose 30 units daily. DX: E11.9 5 Each 04/04/2024 Active Insulin Pen Needle 32G X 6 MMIndications:Type 2 diabetes mellitus with hemoglobin A1c goal of less than 8.0% ([facility]) Use to inject insulin once daily. 100 Each 04/04/2024 Active metFORMIN HCl ER 500 MG Oral Tablet Extended Release 24 Hour (Glucophage XR)Indications:Typ e 2 diabetes mellitus with hemoglobin A1c goal of less than 8.0% ([facility]) Take 2 Tablets by mouth 2 times a day with morning and evening meals. Begin with one tablet twice daily for one week then increase to two tablets twice daily 360 Tablet 3 04/04/2024 Active Lisinopril 5 MG Oral Tablet (Prinivil)Indicati ons:HTN, goal below 140/90,Heart failure, diastolic, due to HTN ([facility]),S/P AVR (aortic valve replacement) Take 1 Tablet by mouth at bedtime. 90 Tablet 3 09/20/2023 4 Discontinue d(Medicatio n List Clean Up) Magnesium Oxide 400 MG Oral Tablet Take 1 Tablet by mouth. 4 Discontinue d(Refill) Hospital, Clinic, or Other Facility Administered Medication Ordered Dose Route Frequency Start Date End Date Status Testosterone Cypionate (Depotestosterone Cypionate) 200 MG/ML inj 100 mgIndications:Hypogonadism, male 100 mg IM QMONTH 01/11/2021 Active documented as of this encounter (statuses as of 05/05/2024) Active Problems Problem Noted Date Diagnosed Date [...] as of this encounter (statuses as of 05/05/2024) Resolved Problems Problem Noted Date Diagnosed Date [...] as of this encounter (statuses as of 05/05/2024) Immunizations Name Administration Dates Next Due COVID-19 mRNA, LNP-s, No Pre serve, 2-Dose Series ([employer]) 06/29/2021,12/15/2020,11/24/2020 COVID-19, LNP-s, No Preserve , Deric-sucrose, Ages 12+ ([employer]) 02/04/2022 COVID-19, MRNA-LNP, 23-24, P F, 30 MCG/0.3 mL, 12 YRS AND ABOVE, IM ([facility]) 10/10/2023 Covid-19, Mrna, Lnp-s, Pf, B ivalent, 30 Mcg, IM, 12 yrs and above ([employer]) 03/02/2023 Hepatitis B, 20+ yrs 04/01/2024,2023,09/29 Pneumococcal [...] Progress Notes * Becky Gordon MD - 04/29/2024 9:38 AM EDT SUBJECTIVE: HPI: Jhon Nelson is a 78 year old male seen for follow-up of 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 Wound is healing well thus far. EXAM Surgical wound on left ear and preauricular area healing well Still unable to lift left brow, but slight movement of left forehead noted today PLAN -Continue vaseline with bandage until completely healed -Possible injury of left temporal nerve vs neuropraxia - will continue to monitor Follow-up: 2 weeks The patient was encouraged to contact me with any further questions or concerns. Becky Gordon MD Associate, Mohs Micrographic Surgery & Dermatologic Surgery 04/26/2024 documented in this encounter Plan of Treatment Upcoming Encounters Date Type Department Care Team (Late st Contact Info) Description 05/06/2024 2:00 PM EDT Nurse Only Ancillary [facility] [address] [place] [address] Nurse, Int Med [address] [place] [address] 05/06/2024 2:20 PM EDT Office Visit Pharmacy, [facility] [address] [place] [address] Pharmacist1, [facility] [address] [place] [address] 05/08/2024 2:00 PM EDT Office Visit [facility]enterology, [facility] [address] [facility] [place] [address] Rain Medellin CRNP [address] [place] [address] 05/14/2024 1:45 PM EDT Office Visit MOHS Surgery [facility] [address] [place], [place] [address] Becky Gordon MD [address] [place] [address] 10/14/2024 3:00 PM EST Office Visit [facility], [facility] [address] [facility] [place] [address] Fabian Mejia, PA-C [address] [place] [address] 11/14/2024 2:00 PM EST Office Visit General Internal Medicine [facility] [address] [place] [address] Lokesh Amin MD [address] [facility] [place] [address] 03/18/2025 10:45 AM EDT Office Visit Dermatology [facility] [address] [place] [address] Lokesh Mayen MD [address] [facility] [place] [address] Scheduled Procedures Name Priority Associated Diagnoses Date/Ti [...] 070 11/2023, 09/26/2023, Additional history exists GFR 10/27/2024 04/26/2024, 03/26, 04/10/2024, Additional history exists CKD PHOS USE SMARTSET 32804 03/27/2025 07/0 11/2023, 09/26/2023, 08/23/2022, Additional history exists Depression Screening 03/27/2025 03/27/2024 Diabetic Foot Exam 03/27/2025 03/27/2024, 02/21/2023 CKD HGB USE SMARTSET 18950 04/26/202504/26, 04/26/2024, 04/15/2024, Additional history exists DTaP,Tdap,and [...] this encounter Medical Devices Implanted Type Area Assistant Director Of Plant Operations Device Identifier Shelf Expiration Date Model / Serial / Lot Korey [id number] (400 Units) - [id number] Implanted:Qty : 400 on 10/25/2011 [place] [facility] [place]domen LIFE CELL MISTY 12/23/[id number] / / [id number] Mesh Prolit Hernia [id number] - [id number] Implanted:Qty : 1 on 08/14/2012 at [place] [facility] [place] Left: Abdomen [employer] 12/24/2015 [id number] / / [id number] Suture Steel 6 B&S19 M654g - [id number] Implanted:Qty : 3 on 07/10/2020 by Ag Ballesteros MD at [place] [facility] [place] N/A: Sternum JNJ : [employer] 02/22/2025 M654G / / [id number] Valve Heart Aortic Epic 23mm - [id number] - [id number] Implanted:Qty : 1 on 07/10/2020 by Ag Ballesteros MD at [place] [facility] [place] N/A: Aorta ST DOMINIK : CARDIOVASCULAR [id number] 03/22/2024 [id number] / [id number] / [id number] documented as of this encounter Visit Diagnoses [...] and were consensually agreed upon. Care Teams Addiction Social Worker Relationship Specialty Start Date End Date Lokesh Amin MD [address] [place] [address] PCP - General Internal Medicine 07/22/21 documented as of this encounter
--- OUTSIDE RECORDS SUMMARY | 2024-07-19 11:38 | External Medical Summary | Summary of Care ---
Author Name Unknown Organization [facility] Address [address] [place] [address] Phone [phone] Care Team Providers Care Guidance Services Coordinator Name Role Phone Lokesh Amin MD Primary Care Provider + Encounter Details Date Type Department Care Team (Late st Contact Info) Description 05/06/2024 2:00 PM EDT Nurse Only Ancillary [facility] [place] [address] [place] [id number] [facility] [address] Arrived Allergies Active Allergy Reactions Criticality Noted Date [...] goal of less than 8.0% ([facility]) Use up to check sugar first thing [...] goal of less than 8.0% ([facility]) Inject 10 Units under the skin daily. [...] goal of less than 8.0% ([facility]) Take 2 Tablets by mouth 2 times [...] mRNA, LNP-s, No Pre serve, 2-Dose Series ([employer]) 06/29/2021,12/15/2020,11/24/2020 COVID-19, LNP-s, No Preserve , Deric-sucrose, Ages 12+ ([employer]) 02/04/2022 COVID-19, MRNA-LNP, 23-24, P F, 30 MCG/0.3 mL, 12 YRS AND ABOVE, IM ([facility]) 10/10/2023 Covid-19, Mrna, Lnp-s, Pf, B ivalent, 30 Mcg, IM, 12 yrs and above ([employer]) 03/02/2023 Hepatitis B, 20+ yrs 04/01/2024,2023,09/29 Pneumococcal [...] Cigars Q uit: 04/17/2010 Smokeless Tobacco: Never Tobacco Cessation:Counseling Given: Not Answered Alcohol Use Standard Drinks/Week Comments Yes 5.8 [...] Sign Reading Time Taken Comments Blood Pressure 104/64 05/06/2024 2:28 PM EDT Pulse - - Temperature - - Respiratory Rate - - Oxygen Saturation - - Inhaled Oxygen Concentration - - Weight - - Height - - Body Mass Index - - documented in this encounter Functional Status Functional [...] as of this encounter Progress Notes * Carlos Durbin, MED ASSIST - 05/06/2024 2:16 PM EDT Blood pressure was 104/64. There were no vitals taken for this visit. Medications were reviewed with the patient: Current Outpatient Medications: GINKOBA 40 MG OR TABS, , Disp: , Rfl: 0 GLUCOSAMINE CHONDROITIN OR TABS, tid (Patient taking differently: Take by mouth daily.), Disp: 90, Rfl: 5 VITAMIN C 500 MG PO TABS, 1 TABLET DAILY, Disp: , Rfl: 0 CALCIUM CITRATE + D 315-200 MG-UNIT PO TABS, one tab daily, Disp: , Rfl: COLACE 100 MG PO CAPS, one cap daily, Disp: , Rfl: latanoprost (XALATAN) 0.005 % ophthalmic solution, Instill 1 Drop into both eyes at bedtime., Disp:, Rfl: 11 amoxicillin (AMOXIL) 500 MG Capsule, Take 1 Capsule by mouth daily as needed. Patient takes prior to dental appointments., Disp: , Rfl: Albuterol Sulfate HFA 108 (90 Base) MCG/ACT Inhalation Aerosol Solution, Inhale 2 Puffs by mouth 4 times a day., Disp: 54 g, Rfl: 3 Metoprolol Succinate ER 25 MG Oral Tablet Extended Release 24 Hour (toPROL XL), TAKE 1 TABLET BY MOUTH EVERY DAY, Disp: 90 Tablet, Rfl: 3 Cranberry 500 MG Oral Tablet, Take 500 mg by mouth in the morning., Disp: , Rfl: Abrysvo 120 MCG/0.5ML Intramuscular Solution Reconstituted (RSV Pre-Fusion F A&B Vac Rcmb), as directed (Patient not taking: Reported on 03/27/2024), Disp: 1 Each, Rfl: 0 Eliquis 5 MG Oral Tablet (Apixaban), TAKE 1 TABLET BY MOUTH TWICE A DAY, Disp: 180 Tablet, Rfl: 1 Spironolactone 25 MG Oral Tablet (Aldactone), TAKE 1/2 TABLET BY MOUTH EVERY DAY, Disp: 45 Tablet, Rfl: 3 Furosemide 40 MG Oral Tablet (Lasix), TAKE 2 TABLETS BY MOUTH IN THE MORNING, Disp: 180 Tablet, Rfl: 3 Pantoprazole Sodium 40 MG Oral Tablet Delayed Release (Protonix), TAKE 1 TABLET BY MOUTH EVERY DAY IN THE MORNING, Disp: 90 Tablet, Rfl: 3 Atorvastatin Calcium 10 MG Oral Tablet (Lipitor), TAKE 1 TABLET BY MOUTH EVERY DAY, Disp: 90 Tablet, Rfl: 3 Fluticasone Propionate 50 MCG/ACT Nasal Suspension (Flonase), SPRAY 2 SPRAYS INTO EACH NOSTRIL EVERY DAY, Disp: 48 mL, Rfl: 2 Centrum Silver 50+Men Oral Tablet, Take by mouth., Disp: , Rfl: OneTouch Verio w/Device Kit, Use up to check sugar first thing in am and 2 hours after meals, Disp:1 Kit, Rfl: 0 OneTouch Verio In Vitro Strip (Glucose Blood), Use up to check sugars first thing in am and 2 hoursafter meals, Disp: 100 Strip, Rfl: 1 Social ToolsTouch UltraSoft Lancets, Use up to check sugar first thing in am and 2 hours after meals, Disp: 100 Each, Rfl: 1 Insulin Glargine Solostar 100 UNIT/ML Subcutaneous Solution Pen-injector (Lantus SoloStar), Inject 10 Units under the skin daily. Titrating dose - max dose 30 units daily. DX: E11.9, Disp: 5 Each, Rfl: 3 Insulin Pen Needle 32G X 6 MM, Use to inject insulin once daily., Disp: 100 Each, Rfl: 3 metFORMIN HCl ER 500 MG Oral Tablet Extended Release 24 Hour (Glucophage XR), Take 2 Tablets by mouth 2 times a day with morning and evening meals. Begin with one tablet twice daily for one week thenincrease to two tablets twice daily, Disp: 360 Tablet, Rfl: 3 Magnesium Oxide 400 MG Oral Tablet, Take 1 Tablet by mouth in the morning and 1 Tablet before bedtime., Disp: , Rfl: Current Facility-Administered Medications: Testosterone Cypionate (Depotestosterone Cypionate) 200 MG/ML inj 100 mg, 100 mg, Intramuscular, Q Month, Justen Ewing, , 100 mg at 04/04/24 1427 Patient denies symptoms. Patient was instructed to follow-up as per their next scheduled appt CHANDA Duncan 05/06/2024 2:15 PM documented in this encounter Nursing Notes * Carlos Durbin MED ASSIST - 05/06/2024 2:26 PM EDT The patient has been properly identified by confirmation of name and date of . Pre-Administration Time Out Procedure Performed: Yes Patient Identified (Ask Name/Date of ): Yes Does the patient have a fever greater than 101 degrees today? No Patient allergic to latex? No Has the patient ever fainted after receiving an injection? No VFC Stock: No Injection(s) verified: Yes, Injection Name: Testosterone Cypionate Verified Side and Site: Yes Verified Shot(s) with Parent(s)/Patient: Yes documented in this encounter Plan of Treatment Upcoming Encounters Date Type Department Care Team (Late st Contact Info) Description 05/06/2024 2:50 PM EDT Laboratory Laboratory [facility] [place] [address] [place] [address] Park, Lab Scenery [address] [facility] [place] [address] Hypomagnesemia 05/08/2024 2:00 PM EDT Office Visit Gastroenterology, [facility] [address] [place] [address] Rain Medellin CRNP [address] [place] [address] 05/14/2024 1:45 PM EDT Office Visit MOHS Surgery [facility] [place] [address] [place], [place] [address] Becky Gordon MD [address] [place] [address] 06/06/2024 1:30 PM EDT Office Visit Pharmacy, [facility] [place] [address] [place] [address] Pharmacist1, [facility] [address] [facility] [place] [address] 06/06/2024 2:00 PM EDT Nurse Only Ancillary [facility] [address] [place] [address] Nurse, Int Med [address] [place] [address] 10/14/2024 3:00 PM EST Office Visit Cardiology, [facility] [address] [place] [address] Fabian Mejia PA-Gregory [address] [place] [address] 11/14/2024 2:00 PM EST Office Visit General Internal Medicine [facility] [place] [address] [place] [address] Lokesh Amin MD [address] [facility] [address] [place] [address] 03/18/2025 10:45 AM EDT Office Visit Dermatology [facility] [place] [address] [place] [address] Lokesh Mayen MD [address] [place] [address] Scheduled Orders Name Type Priority Associated Diagnoses Orde r Schedule BLOOD PRESSURE Procedures Routine HTN, goal below 140/90 Ordered: 05/06/2024 Scheduled Procedures Name Priority Associated Diagnoses Date/Ti [...] Additional history exists CKD PHOS USE SMARTSET 07556 03/27/2025 07/0 11/2023, 09/26/2023, 08/23/2022, Additional history exists Depression Screening 03/27/2025 03/27/2024 Diabetic Foot Exam 03/27/2025 03/27/2024, 02/21/2023 CKD HGB USE SMARTSET 67230 04/26/202504/26, 04/26/2024, 04/15/2024, Additional history exists DTaP,Tdap,and [...] this encounter Medical Devices Implanted Type Area Financial Underwriter Device Identifier Shelf Expiration Date Model / Serial / Lot Korey [id number] (400 Units) - [id number] Implanted:Qty : 400 [place] 10[place] [facility] [place] LIFE CELL MISTY 12/23/2012 / / [id number] Mesh Prolit Hernia [id number] - [id number] Implanted:Qty : 1 on 08/14/2012 [place] [facility] [place]: Abdomen [employer] 12/24/2015 [id number] / / [id number] Suture Steel 6 B&S19 M654g - [id number] Implanted:Qty : 3 on 07/10/2020 by Ag Ballesteros MD [place] [facility] [place]/A: Sternum JNJ : [employer] 02/22/2025 M654G / / [id number] Valve Heart Aortic Epic 23mm - [id number] - [id number] Implanted:Qty : 1 on 07/10/2020 by Ag Ballesteros MD [place] [facility] [place] N/A: Aorta ST DOMINIK : CARDIOVASCULAR [id number] 03/22/2024 [id number] 00 / [id number] / [id number] documented as of this encounter Visit Diagnoses Diagnosis HTN, goal below 140/90- Primary Unspecified essential hypertension Hypomagnesemia Disorders of magnesium metabolism documented in this encounter Administered Medications Active Administered Medications - up to 3 most recent administrations Medication Order MAR Action Action Date Dose Rate Site Testosterone Cypionate (Depotestosterone Cypionate) 200 MG/ML inj 100 mg 100 mg, Intramuscular, QMONTH, First dose on 01/11/21 at 1545, Until Discontinued Given 05/06/2024 2:21 PM EDT 100 mg Dorsogluteal Left Given 04/04/2024 2:27 PM EDT 100 mg Do rsogluteal Left Given 03/04/2024 3:17 PM EDT 100 mg Do rsogluteal Left [...] and were consensually agreed upon. Care Teams Guidance Services Coordinator Relationship Specialty Start Date End Date Lokesh Amin MD [address] [place] [address] PCP - General Internal Medicine 07/22/21 documented as of this encounter
--- OUTSIDE RECORDS SUMMARY | 2024-07-19 11:38 | External Medical Summary ---
Author Name Unknown Address Unknown Organization K09:[facility] [address] [place] [address] Laboratory Report Ordering Provider Test Date Status COREY JARAMILLO 05/06/2024 14:40:02 Final Observation Date Value Abnormality Reference (Units ) Status Magnesium 05/06/2024 14:40:02 1.0 Below low normal 1.5 -2.6 (mg/dL) Final Performing Location [facility] [place] [address]
--- OUTSIDE RECORDS SUMMARY | 2024-07-19 11:39 | External Medical Summary ---
Author Name Unknown Address Unknown Organization K09:[facility] [place] [address] Laboratory Report Ordering Provider Test Date Status COREY JARAMILLO 04/26/2024 14:40:31 Final Observation Date Value Abnormality Reference (Units ) Status WBC, Total 04/26/2024 14:40:31 5.57 4.00-10.8 0 (K/uL) Final RBC 04/26/2024 14:40:31 4.48 4.50-5.25 (M/uL) Final Hemoglobin 04/26/2024 14:40:31 14.3 14.0-16.8 (g/dL) Final HCT 04/26/2024 14:40:31 42.2 40.0-48.4 (%) Final MCV 04/26/2024 14:40:31 94.2 82.0-99.5 (fL) Final MCH 04/26/2024 14:40:31 31.9 27.0-34.0 (pg) Final MCHC 04/26/2024 14:40:31 33.9 32.0-36.0 (g/dL) Final RDW 04/26/2024 14:40:31 14.0 11.5-15.5 (%) Final Platelets 04/26/2024 14:40:31 166 140-400 (K /uL) Final MPV 04/26/2024 14:40:31 9.8 6.6-11.1 ( fL) Final Performing Location [facility] [place] [address]
--- OUTSIDE RECORDS SUMMARY | 2024-07-19 11:39 | External Medical Summary | Summary of Care ---
Author Name Unknown Organization [facility] Address [address] [place] [address] Phone [phone] Care Team Providers Care Recovery Collector Name Role Phone Lokesh Amin MD Primary Care Provider + Reason for Visit * Reason Comments eRx-Medication Refill Encounter Details Date Type Department Care Team (Late st Contact Info) Description 04/22/2024 Refill General Internal Medicine [facility] [address] [place] [address] Lokesh Amin MD [address] [place] [address] Type 2 diabetes mellitus with hemoglobin A1c goal of less than 8.0% ([facility]) Allergies Active Allergy Reactions Criticality Noted Date Comments Demerol Neuro complications (Please comment) High 06/14/2010 confusion Adhesive Tape Rash Low 06/14/2010 documented as of this encounter (statuses as of 04/23/2024) Medications Medication Sig Dispensed Refills Start Date [...] mg by mouth in the morning. Active Lisinopril 5 MG Oral Tablet (Prinivil)Indicatio ns:HTN, goal below 140/90,Heart failure, diastolic, due to HTN (HCC),S/P AVR (aortic valve replacement) Take 1 Tablet by mouth at bedtime. 90 Tablet 3 09/20/2023 Active Eliquis 5 MG Oral Tablet (Apixaban)Indicatio [...] Oral Tablet Take 1 Tablet by mouth. Active Hospital, Clinic, or Other Facility Administered Medication Ordered Dose Route Frequency Start Date End Date Status Testosterone Cypionate (Depotestosterone Cypionate) 200 MG/ML inj 100 mgIndications:Hypogonadism, male 100 mg IM QMONTH 01/11/2021 Active documented as of this encounter (statuses as of 04/23/2024) Active Problems Problem Noted Date Diagnosed Date [...] as of this encounter (statuses as of 04/23/2024) Resolved Problems Problem Noted Date Diagnosed Date [...] as of this encounter (statuses as of 04/23/2024) Immunizations Name Administration Dates Next Due COVID-19 mRNA, LNP-s, No Pre serve, 2-Dose Series ([employer]) 06/29/2021,12/15/2020,11/24/2020 COVID-19, LNP-s, No Preserve , [...] encounter Miscellaneous Notes * Telephone Encounter - Vita Jennings RPh - 04/23/2024 1:29 PM EDTRefused Prescriptions: Disp Refills OneTouch Verio w/Device Kit 1 Kit 0 Sig: Use up to check sugar first thing in am and 2 hours after mealsRefused By: Teo JENNINGS for Refusal: Refill Not AppropriateReason for Refusal Comment: sent 04/04 documented in this encounter Plan of Treatment Upcoming Encounters Date Type Department Care Team (Late st Contact Info) Description 04/26/2024 2:00 PM EDT Office Visit [facility] Surgery Yaneth [place] [address] [facility] [address] [place] [address] Becky Gordon MD [address] [facility] [address] 05/06/2024 2:00 PM EDT Nurse Only Ancillary [facility] Jennifer [place] [address] [facility] [place] [address] Nurse, Int Med [address] [place] [address] [address] 05/06/2024 2:20 PM EDT Office Visit Pharmacy, [place] [address] [facility] [place] [address] Pharmacist1, [facility] [address] [place] [address] 05/08/2024 2:00 PM EDT Office Visit Gastroenterology, [facility] [address] [facility] [place] [address] Rain Medellin CRNP [address] [place] [address] 10/14/2024 3:00 PM EST Office Visit Cardiology, [facility] [address] [facility] [place] [address] Fabian Mejia PA-C [address] [place] [address] 11/14/2024 2:00 PM EST Office Visit General Internal Medicine [facility] [place] [address] [facility] [place] [address] Lokesh Amin MD 200 [facility] [place] [address] 03/18/2025 10:45 AM EDT Office Visit Dermatology [facility] [place] [address] [place] [address] Lokesh Mayen MD [address] [place] [address] Scheduled Procedures Name Priority Associated Diagnoses Date/Ti me COLONOSCOPY FLEXIBLE PROXIMAL DIAGNOSTIC Recall Colon cancer screening Health Maintenance Due Date Last Done Comments COVID-19 Vaccine ( season) 2023 10/10/2023, 03/02/2023, 02/04/2022, Additional history exists Influenza Vaccine (FLU shot) (#1) 2024 06/26/2023, 06/09/2022, 06/17/2021, Additional history exists Diabetic Eye Exam 08/01/2024 08/01/2023, , 07/25/2005 Albumin/Creatinine Ratio 09/26/2024 09/26/2023, 07/27 GFR 10/16/2024 04/15/2024, 03/25, 04/03/2024, Additional history exists HbA1c 10/16/2024 04/15/2024, 11/2023, 09/26/2023, Additional history exists CKD PHOS USE SMARTSET 81996 03/27/202511/2023, 09/26/2023, 08/23/2022, Additional history exists Depression Screening 03/27/2025 03/27/2024 Diabetic Foot Exam 03/27/2025 03/27/2024, 02/21/2023 CKD HGB USE SMARTSET 56927 04/15/202504/15, 04/15/2024, 10/27/2023, Additional history exists DTaP,Tdap,and Td Vaccines (3 - Td or Tdap) 09/07/2029 09/07/2019, 08/24/2009 Pneumococcal Vaccine: 65+ Years Completed 02/08/2016, 02/08/2012, 08/18/2004 Hepatitis C Screening Completed 10/23/2019 Zoster Vaccines Completed 10/09/2020, 03/04/2020 Hepatitis B Vaccine Completed 04/01/2024, 2023, 09/29/2023 HPV (Gardasil) Vaccine Aged Out No lo nger eligible based on patient's age to complete this topic MENINGOCOCCAL (MENACTRA/MENVEO) Aged Out No longer eligible based on patient's age to complete this topic documented as of this encounter Medical Devices Implanted Type Area Spinning Bath Patroller Device Identifier Shelf Expiration Date Model / Serial / Lot Korey [id number] (400 Units) - [id number] Implanted:Qty : 400 on 10/25/2011 at [place] [facility] Abdomen LIFE CELL MISTY 12/23/2012 [id number] / / [id number] Mesh Prolit Hernia [id number] - [id number] Implanted:Qty : 1 on 08/14/2012 at [place] [facility] Left: Abdomen [employer] 12/24/2015 [id number] / / [id number] Suture Steel 6 B&S19 M654g - [id number] Implanted:Qty : 3 on 07/10/2020 by Ag Ballesteros MD at [place] [facility] N/A: Sternum JNJ : [employer] 02/22/2025 M654G / / [id number] Valve Heart Aortic Epic 23mm - [id number] - [id number] Implanted:Qty : 1 on 07/10/2020 by Ag Ballesteros MD at [place] [facility] N/A: Aorta ST DOMINIK : CARDIOVASCULAR [id number] 03/22/2024 [id number] / [id number] / [id number] documented as of this encounter Visit Diagnoses [...] and were consensually agreed upon. Care Teams Recovery Collector Relationship Specialty Start Date End Date Lokesh Amin MD 200 [place] [address] PCP - General Internal Medicine 07/22/21 documented as of this encounter
--- OUTSIDE RECORDS SUMMARY | 2024-07-19 11:39 | External Medical Summary ---
Author Name Unknown Address Unknown Organization K09[facility] [place] [address] Laboratory Report Ordering Provider Test Date Status COREY JARAMILLO 04/26/2024 14:40:31 Final Observation Date Value Abnormality Reference (Units ) Status SYNC LEUKOCYTES IN BLOOD BY AUTOMATED COUNT 04/26/2024 14:40:31 5.57 4.00-10.80 (K/uL) Final Segs 04/26/2024 14:40:31 70.6 40.0-75.0 (%) Final Lymphs % 04/26/2024 14:40:31 17.4 Below low normal 18.0-42.0 (%) Final Monos 04/26/2024 14:40:31 10.4 1.0-11.0 (%) Final Eosinophils 04/26/2024 14:40:31 1.4 0.0-6.0 (%) Final Basos 04/26/2024 14:40:31 0.2 0.0-2.0 (%) Final Absolute Segs 04/26/2024 14:40:31 3.93 1.80-7.70 (K/uL) Final Lymphs, absolute 04/26/2024 14:40:31 0.97 Below low normal 1.00-4.80 (K/ul) Final Monos, Abs 04/26/2024 14:40:31 0.58 0.00-1.10 (K/uL) Final Eos, Abs 04/26/2024 14:40:31 0.08 0.00-0.70 (K/uL) Final Basos, Abs 04/26/2024 14:40:31 0.01 0.00-0.20 (K/uL) Final Performing Location [facility] [place] [address]
--- OUTSIDE RECORDS SUMMARY | 2024-07-19 11:39 | External Medical Summary | Summary of Care ---
Author Name Unknown Organization [facility] Address [address] [place] [address] Phone [phone] Care Team Providers Care Metal Inspector Name Role Phone Lokesh Amin MD Primary Care Provider + Reason for Visit * Reason Onset Date Comments Blood Pressure Check 04/25/2024 Encounter Details Date Type Department Care Team (Late st Contact Info) Description 04/25/2024 2:00 PM EDT Nurse Only Ancillary [facility] [place] [facility] [place] [address] Nurse, [facility] [address] Blood Pressure Check Allergies Active Allergy Reactions Criticality Noted Date Comments Demerol Neuro complications (Please comment) High 06/14/2010 confusion Adhesive Tape Rash Low 06/14/2010 documented as of this encounter (statuses as of 04/25/2024) Medications Medication Sig Dispensed Refills Start Date [...] as of this encounter (statuses as of 04/25/2024) Active Problems Problem Noted Date Diagnosed Date [...] as of this encounter (statuses as of 04/25/2024) Resolved Problems Problem Noted Date Diagnosed Date [...] as of this encounter (statuses as of 04/25/2024) Immunizations Name Administration Dates Next Due COVID-19 mRNA, LNP-s, No Pre serve, 2-Dose Series ([facility]) 06/29/2021,12/15/2020,11/24/2020 COVID-19, LNP-s, No Preserve , Deric-sucrose, Ages 12+ ([facility]) 02/04/2022 COVID-19, MRNA-LNP, 23-24, P F, 30 MCG/0.3 mL, 12 YRS AND ABOVE, IM (Anda[employer]Comirnat) 10/10/2023 Covid-19, Mrna, Lnp-s, Pf, B ivalent, 30 Mcg, IM, 12 yrs and above ([facility]) 03/02/2023 Hepatitis B, 20+ yrs 04/01/2024,2023,09/29 Pneumococcal [...] Sign Reading Time Taken Comments Blood Pressure 102/66 04/25/2024 2:12 PM EDT Pulse 81 04/25/2024 2:12 PM EDT Temperature - - Respiratory Rate - - Oxygen Saturation 97% 04/25/2024 2:12 PM EDT Inhaled Oxygen Concentration - - Weight - [...] as of this encounter Progress Notes * Carina Estrada MED [place] - 04/25/2024 2:14 PM EDT Jhon Nelson presented for blood pressure check per provider orders. The blood pressure was obtained using the left arm in the sitting position using a adult cuff. The results were charted in Vital Signs. BP Readings from Last 3 Encounters: 04/25/24 102/66 04/08/24 126/76 03/27/24 122/70 BP 102/66 (BP Site: Left Arm, BP Position: Sitting, BP Cuff Size: Regular) | Pulse 81 | SpO2 97% Patient denies headache, pressure in head, dizziness, lightheadedness, chest discomfort, focal neurological symptoms, change in vision, nose bleeds. Did patient take medications today? Yes Patient was instructed to follow-up as per their next scheduled appt documented in this encounter Plan of Treatment Upcoming Encounters Date Type Department Care Team (Late st Contact Info) Description 04/26/2024 2:00 PM EDT Office Visit [facility] Surgery [facility] [place] [address] [place], [place] [address] Becky Gordon MD 200 [facility] [address] 05/06/2024 2:00 PM EDT Nurse Only Ancillary [facility] [place] [address] [facility] [place] [address] Nurse, Int Med [address] [facility] [place] [address] 05/06/2024 2:20 PM EDT Office Visit Pharmacy, [facility] [address] [facility] [place] [address] Pharmacist1, [facility] [address] [facility] [place] [facility] [place] [address] 05/08/2024 2:00 PM EDT Office Visit Gastroenterology, [facility] [address] [facility] [place] [address] Rain Medellin CRNP [address] [place] [address] 10/14/2024 3:00 PM EST Office Visit Cardiology, [facility] [address] [place] [address] Fabian Mejia PA-C [address] [place] [address] 11/14/2024 2:00 PM EST Office Visit General Internal Medicine [facility] [address] [facility] [place] [address] Lokesh Amin MD 200 [facility] [place] [address] 03/18/2025 10:45 AM EDT Office Visit Dermatology [facility] [address] [place] [address] Lokesh Mayen MD [address] [place] [address] Scheduled Orders Name Type Priority Associated Diagnoses Orde r Schedule BLOOD PRESSURE Procedures Routine HTN, goal below 140/90 Ordered: 04/25/2024 Scheduled Procedures Name Priority Associated Diagnoses Date/Ti [...] 04/03/2024, Additional history exists HbA1c 10/16/2024 04/15/2024, 0711/2023, 09/26/2023, Additional history exists CKD PHOS USE SMARTSET 02499 03/27/2025 07/0 11/2023, 09/26/2023, 08/23/2022, Additional history exists Depression Screening 03/27/2025 03/27/2024 Diabetic Foot Exam 03/27/2025 03/27/2024, 02/21/2023 CKD HGB USE SMARTSET 97859 04/15/202504/15, 04/15/2024, 10/27/2023, Additional history exists DTaP,Tdap,and [...] this encounter Medical Devices Implanted Type Area Word Processor Technician Device Identifier Shelf Expiration Date Model / Serial / Lot Strattice [id number] (400 Units) - [id number] Implanted:Qty : 400 [place] 10/25/2011 [place] [facility] [place]domen LIFE CELL MISTY 12/23/[id number] / / [id number] Mesh Prolit Hernia [id number] - [id number] Implanted:Qty : 1 on 08/14/2012 [place] [facility] Left: Abdomen [employer] 12/24/2015 [id number] / / [id number] Suture Steel 6 B&S19 M654g - [id number] Implanted:Qty : 3 on 07/10/2020 by Ag Ballesteros MD [place] [facility] N/A: Sternum JNJ : [employer] 02/22/2025 M654G / / [id number] Valve Heart Aortic Epic 23mm - [id number] - [id number] Implanted:Qty : 1 on 07/10/2020 by Ag Ballesteros MD [place] [facility] N/A: Aorta ST DOMINIK : CARDIOVASCULAR [id number] 03/22/2024 [id number] / [id number] / [id number] documented as of this encounter Visit Diagnoses Diagnosis HTN, goal below 140/90- Primary Unspecified essential hypertension documented in this encounter Advance Directives * [...] and were consensually agreed upon. Care Teams Metal Inspector Relationship Specialty Start Date End Date Lokesh Amin MD 200 [place] [address] PCP - General Internal Medicine 07/22/21 documented as of this encounter"
--- OUTSIDE RECORDS SUMMARY | 2024-07-19 11:39 | External Medical Summary ---
Author Name Unknown Address Unknown Organization [facility] [place] [address] Laboratory Report Ordering Provider Test Date Status COREY JARAMILLO 04/26/2024 14:40:31 Final Observation Date Value Abnormality Reference (Units ) Status BUN 04/26/2024 14:40:31 20 6-20 (mg/dL) Final Creatinine 04/26/2024 14:40:31 1.5 Above high normal 0.6-1.2 (mg/dL) Final Glomerular filtration rate/1.73 sq M.predicted [Volume Rate/Area] in Serum, Plasma or Blood by Creatinine-based formula (CKD-EPI) 04/26/2024 14:40:31 48 Below low normal >=60 (mL/min) Final eGFR is calculated based on the CKD-EPI 2020 equation. Sodium 04/26/2024 14:40:31 140 135-146 (m mol/L) Final Potassium 04/26/2024 14:40:31 4.4 3.5-5.1 (m mol/L) Final Cl 04/26/2024 14:40:31 100 98-107 (mm ol/L) Final CO2 04/26/2024 14:40:31 27 22-32 (mmo l/L) Final Anion gap 04/26/2024 14:40:31 13 7-15 (mmol /L) Final Glucose 04/26/2024 14:40:31 96 70-120 (mg /dL) Final Calcium 04/26/2024 14:40:31 9.9 8.4-10.2 ( mg/dL) Final Performing Location [facility] [place] [address]
--- OUTSIDE RECORDS SUMMARY | 2024-07-19 11:39 | External Medical Summary | Summary of Care ---
Author Name Unknown Organization [facility] Address [address] [place] [address] Phone [phone] Care Team Providers Care Plater Supervisor Name Role Phone Lokesh Amin MD Primary Care Provider + Reason for Visit * Reason Comments Outpatient Testing Encounter Details Date Type Department Care Team (Late st Contact Info) Description 04/26/2024 2:40 PM EDT Laboratory Laboratory [facility] [address] [place] [id number] [place], Lab Scenery [address] [place] [address] [employer] Other*[id number]; Hypomagnesemia; Chronic diastolic congestive heart failure (HCC); Abnormal CBC measurement Allergies Active Allergy Reactions Criticality Noted Date Comments Demerol Neuro complications (Please comment) High 06/14/2010 confusion Adhesive Tape Rash Low 06/14/2010 documented as of this encounter (statuses as of 04/26/2024) Medications Medication Sig Dispensed Refills Start Date [...] A1c goal of less than 8.0% ([facility]) Inject 10 Units under the skin daily. Titrating dose - max dose 30 units daily. DX: E11.9 5 Each 3 04/04/2024 Active Insulin Pen Needle 32G X 6 MMIndications:Type 2 diabetes mellitus with hemoglobin A1c goal of less than 8.0% ([facility]) Use to inject insulin once daily. 100 Each 3 04/04/2024 Active metFORMIN HCl ER 500 MG Oral Tablet Extended Release 24 Hour (Glucophage XR)Indications:Type 2 diabetes mellitus with hemoglobin A1c goal of less than 8.0% ([facility]) Take 2 Tablets by mouth [...] as of this encounter (statuses as of 04/26/2024) Active Problems Problem Noted Date Diagnosed Date [...] as of this encounter (statuses as of 04/26/2024) Resolved Problems Problem Noted Date Diagnosed Date [...] as of this encounter (statuses as of 04/26/2024) Immunizations Name Administration Dates Next Due COVID-19 mRNA, LNP-s, No Pre serve, 2-Dose Series ([employer]) 06/29/2021,12/15/2020,11/24/2020 COVID-19, LNP-s, No Preserve , Deric-sucrose, Ages 12+ ([employer]) 02/04/2022 COVID-19, MRNA-LNP, 23-24, P F, 30 MCG/0.3 mL, 12 YRS AND ABOVE, IM ([facility] 10/10/2023 Covid-19, Mrna, Lnp-s, Pf, B ivalent, 30 Mcg, IM, 12 yrs and above ([employer]) 03/02/2023 Hepatitis B, 20+ yrs 04/01/2024,2023,09/29 Pneumococcal [...] 05/06/2024 2:00 PM EDT Nurse Only Ancillary [facility] [address] [place] [address] Nurse, Int Med [address] [place] [address] 05/06/2024 2:20 PM EDT Office Visit Pharmacy, [facility] [address] [place] [address] Pharmacist1, [facility] 200 [facility] [place] [address] 05/08/2024 2:00 PM EDT Office Visit Gastroenterology, [facility] [address] [place] [address] aRin Medellin CRNP [address] [place] [address] 05/14/2024 1:45 PM EDT Office Visit MOHS Surgery [facility] [address] Becky Gordon MD [address] [place] [address] 10/14/2024 3:00 PM EST Office Visit Cardiology, [facility] [address] [place] [address] Fabian Mejia PA-C [address] [place] [address] 11/14/2024 2:00 PM EST Office Visit General Internal Medicine [facility] [address] [place] [address] Lokesh Amin MD [address] [place] [address] 03/18/2025 10:45 AM EDT Office Visit Dermatology [facility] [address] [place] [address] Lokesh Mayen MD [address] [place], [place] [address] Pending Results Name Type Priority Associated Diagnoses Date /Time MYCODE SUBSEQUENT ADULT Lab Routine [employer] Other*[id number] 04/26/2024 2:40 PM EDT MAGNESIUM Lab Routine Hypomagnesemia 04/26/2024 2:40 PM EDT BASIC METABOLIC PANEL Lab Routine Chronic diastolic congestive heart failure (HCC) 04/26/2024 2:40 PM EDT MYCODE SST1 Lab Routine [employer] Other*[id number] 04/26/2024 2:40 PM EDT MYCODE SST2 Lab Routine [employer] Other*[id number] 04/26/2024 2:40 PM EDT Scheduled Procedures Name Priority [...] 04/03/2024, Additional history exists HbA1c 10/16/2024 04/15/2024, 070 11/2023, 09/26/2023, Additional history exists CKD PHOS USE SMARTSET 15193 03/27/2025 07/0 11/2023, 09/26/2023, 08/23/2022, Additional history exists Depression Screening 03/27/2025 03/27/2024 Diabetic Foot Exam 03/27/2025 03/27/2024, 02/21/2023 CKD HGB USE SMARTSET 72222 04/15/202504/26, 04/26/2024, 04/15/2024, Additional history exists DTaP,Tdap,and Td [...] this encounter Medical Devices Implanted Type Area Continuous Absorption Process Operator Device Identifier Shelf Expiration Date Model / Serial / Lot Strattice [id number] (400 Units) - [id number] Implanted:Qty : 400 on 10/25/2011 at [place] [facility] [place] Abdomen LIFE CELL MISTY 12/23/2012 [id number] / / [id number] Mesh Prolit Hernia [id number] - [id number] Implanted:Qty : 1 on 08/14/2012 at OR [facility] Left: Abdomen [employer] M[employer] 12/24/2015 [id number] / / [id number] Suture Steel 6 B&S19 M654g - [id number] Implanted:Qty : 3 on 07/10/2020 by Ag Ballesteros MD at [place] [facility] [facility] N/A: Sternum JNJ : [employer] 02/22/2025 [id number] / / [id number] Valve Heart Aortic Epic 23mm - [id number] - [id number] Implanted:Qty : 1 on 07/10/2020 by Ag Ballesteros MD at OR [facility] [facility] N/A: Aorta ST DOMINIK : CARDIOVASCULAR [id number] 03/22/2024 [id number] / [id number] / [id number] documented as of this encounter Procedures Procedure Name Priority Date/Time Associated Diagnosis Comments DIFFERENTIAL, AUTOMATED Routine 04/26/2024 2:40 PM EDT Abnormal CBC measurement CBC Routine 04/26/2024 2:40 PM EDT Abnormal CBC measurement CBC Routine 04/26/2024 2:40 PM EDT Abnormal CBC measurement documented in this encounter Results * (ABNORMAL) DIFFERENTIAL, AUTOMATED (04/26/2024 2:40 PM EDT) WBC 5.57 4.00 - 10.80 K/uL 04/26/2024 2:49 PM EDT [facility] [place] 56- Neutrophils % 70.6 40.0 - 75.0 % 04/26/2024 2:49 PM EDT [facility] [place] 56-02 Lymphocytes % 17.4(L) 18.0 - 42.0 % 04/26/2024 2:49 PM EDT [facility] [place] 56-02 Monocytes % 10.4 1.0 - 11.0 % 04/26/2024 2:49 PM EDT [facility] [place] 56-02 Eosinophils % 1.4 0.0 - 6.0 % 04/26/2024 2:49 PM EDT [facility] [place] 56-02 Basophils % 0.2 0.0 - 2.0 % 04/26/2024 2:49 PM EDT [facility] 56-02 Absolute Neutrophils 3.93 1.80 - 7.70 K/uL 04/26/2024 2:49 PM EDT [facility] Absolute Lymphocytes 0.97(L) 1.00 - 4.80 K/ul 04/26/2024 2:49 PM EDT [facility] Absolute Monocytes 0.58 0.00 - 1.10 K/uL 04/26/2024 2:49 PM EDT [facility] Absolute Eosinophils 0.08 0.00 - 0.70 K/uL 04/26/2024 2:49 PM EDT [facility] Absolute Basophils 0.01 0.00 - 0.20 K/uL 04/26/2024 2:49 PM EDT [facility] Blood Venous blood specimen / Unknown Venipuncture / Unknown 04/26/2024 2:40 PM EDT 04/26/2024 2:40 PM EDT Lokesh Amin MD LAB BLOOD [facility] [address] [place] [address] * CBC (04/26/2024 2:40 PM EDT) WBC 5.57 4.00 - 10.80 K/uL 04/26/2024 2:49 PM EDT [facility] RBC 4.48 4.50 - 5.25 M/uL 04/26/2024 2:49 PM EDT [facility] HGB 14.3 14.0 - 16.8 g/dL 04/26/2024 2:49 PM EDT [facility] HCT 42.2 40.0 - 48.4 % 04/26/2024 2:49 PM EDT [facility] MCV 94.2 82.0 - 99.5 fL 04/26/2024 2:49 PM EDT [facility] MCH 31.9 27.0 - 34.0 pg 04/26/2024 2:49 PM EDT [facility] MCHC 33.9 32.0 - 36.0 g/dL 04/26/2024 2:49 PM EDT [facility] 56 RDW 14.0 11.5 - 15.5 % 04/26/2024 2:49 PM EDT [facility] 56 PLT 166 140 - 400 K/uL 04/26/2024 2:49 PM EDT [facility] 56 MPV 9.8 6.6 - 11.1 fL 04/26/2024 2:49 PM EDT [facility] 56 Blood Venous blood specimen / Unknown Venipuncture / Unknown 04/26/2024 2:40 PM EDT 04/26/2024 2:40 PM EDT Lokesh Amin MD LAB BLOOD ORDERA BLES [facility] [address] [place] [address] documented in this encounter Visit Diagnoses Diagnosis [employer] Other*[id number] Hypomagnesemia Disorders of magnesium metabolism Chronic diastolic congestive heart failure (HCC) Chronic diastolic heart failure Abnormal CBC measurement Other abnormal blood chemistry documented in this encounter Advance Directives * [...] and were consensually agreed upon. Care Teams Plater Supervisor Relationship Specialty Start Date End Date Lokesh Amin MD [address] [place] [address] PCP - General Internal Medicine 07/22/21 documented as of this encounter
--- OUTSIDE RECORDS SUMMARY | 2024-07-19 11:39 | External Medical Summary ---
Author Name Unknown Address Unknown Organization K09:[facility] [place] [address] Laboratory Report Ordering Provider Test Date Status COREY JARAMILLO 04/26/2024 14:40:31 Final Observation Date Value Abnormality Reference (Units ) Status Magnesium 04/26/2024 14:40:31 1.1 Below low normal 1.5 -2.6 (mg/dL) Final Performing Location [facility] [place] [address]
--- OUTSIDE RECORDS SUMMARY | 2024-07-19 11:39 | External Medical Summary ---
Author Name Unknown Address Unknown Organization K01[facility] [place] [address] [place] [address] Laboratory Report Ordering Provider Test Date Status MICHAEL TRACY 04/26/2024 14:40:31 Final Observation Date Value Abnormality Reference (Units ) Status MYCODE SPECIMEN-SST 04/26/2024 14:40:31 Freezing of extracted DNA, whole blood and/or serum. Final Performing Location [facility] [place] [address] [place] [address]
--- OUTSIDE RECORDS SUMMARY | 2024-07-19 11:39 | External Medical Summary | Summary of Care ---
Author Name Unknown Organization [facility] Address [address] [place] [address] Phone [phone] Care Team Providers Care Clinical Registered Nurse Name Role Phone Lokesh Amin MD Primary Care Provider + Reason for Visit * Reason Onset Date Comments Test Results 04/30/2024 Encounter Details Date Type Department Care Team (Late st Contact Info) Description 04/30/2024 Telephone General Internal Medicine [facility] 200 [facility] [address] Lokesh Amin MD 200 [place] [address] Test Results Allergies Active Allergy Reactions Criticality Noted Date Comments Demerol Neuro complications (Please comment) High 06/14/2010 confusion Adhesive Tape Rash Low 06/14/2010 documented as of this encounter (statuses as of 04/30/2024) Medications Medication Sig Dispensed Refills Start Date [...] Oral Tablet Take by mouth. Ac tive [employer]key[employer]Touch Verio w/Device KitIndications:Typ e 2 diabetes mellitus with hemoglobin A1c goal of less than 8.0% ([facility]) Use up to check sugar first thing in am and 2 hours after meals 1 Kit 04/04/2024 Active MonkeyFindToCode71 Verio In Vitro Strip (Glucose Blood)Indications: Type [...] hemoglobin A1c goal of less than 8.0% ([facility]) Inject 10 Units under the skin daily. Titrating dose - max dose 30 units daily. DX: E11.9 5 Each 04/04/2024 Active Insulin Pen Needle 32G X 6 MMIndications:Type 2 diabetes mellitus with hemoglobin A1c goal of less than 8.0% ([facility]) Use to inject insulin once daily. 100 Each 04/04/2024 Active metFORMIN HCl ER 500 MG Oral Tablet Extended Release 24 Hour (Glucophage XR)Indications:Typ e 2 diabetes mellitus with hemoglobin A1c goal of less than 8.0% ([facility]) Take 2 Tablets by mouth 2 times a day with morning and evening meals. Begin with one tablet twice daily for one week then increase to two tablets twice daily 360 Tablet 3 04/04/2024 Active Magnesium Oxide 400 MG Oral Tablet Take 1 Tablet by mouth in the morning and 1 Tablet before bedtime. 04/30/2024 Active Lisinopril 5 MG Oral Tablet (Prinivil)Indicati ons:HTN, goal below 140/90,Heart failure, diastolic, due to HTN ([facility]),S/P AVR (aortic valve replacement) Take 1 Tablet [...] as of this encounter (statuses as of 04/30/2024) Active Problems Problem Noted Date Diagnosed Date [...] as of this encounter (statuses as of 04/30/2024) Resolved Problems Problem Noted Date Diagnosed Date [...] as of this encounter (statuses as of 04/30/2024) Immunizations Name Administration Dates Next Due COVID-19 mRNA, LNP-s, No Pre serve, 2-Dose Series ([employer]) 06/29/2021,12/15/2020,11/24/2020 COVID-19, LNP-s, No Preserve , Deric-sucrose, Ages 12+ ([employer]) 02/04/2022 COVID-19, MRNA-LNP, 23-24, P F, 30 MCG/0.3 mL, 12 YRS AND ABOVE, IM ([facility]) 10/10/2023 Covid-19, Mrna, Lnp-s, Pf, B ivalent, 30 Mcg, IM, 12 yrs and above ([employer]) 03/02/2023 Hepatitis B, 20+ yrs 04/01/2024,2023,09/29 Pneumococcal [...] encounter Miscellaneous Notes * Telephone Encounter - Luly Carter LPN - 04/30/2024 11:00 AM EDT Patient aware and verbalized understanding, will comply Pt has NV on 05/06 Updated med list. * Telephone Encounter - Carina Estrada MED ASSIST - 04/30/2024 10:47 AM EDT Left message for the patient to call the office. Upon return call please transfer to a dedicated telephone nurse. * Telephone Encounter - Carina Estrada MED ASSIST - 04/30/2024 10:46 AM EDT ----- Message from Lokesh Amin MD sent at 04/30/2024 10:26 AM EDT ----- Magnesium lower, increase mag oxide to twice a day, recheck 1 week. Gfr improving slightly. Please stay hydrated, stop lisinopril and bp check 1 week update med list once aware. documented in this encounter Plan of Treatment Upcoming Encounters Date Type Department Care Team (Late st Contact Info) Description 05/06/2024 2:00 PM EDT Nurse Only Ancillary [facility] 200 [facility] [place] [address] Nurse, Int Med [address] [facility] [place] [address] 05/06/2024 2:20 PM EDT Office Visit Pharmacy, [facility] 200 [facility] [place] [address] Pharmacist1, [facility] 200 [facility] [place] [address] 05/08/2024 2:00 PM EDT Office Visit Gastroenterology, [facility] 132 [facility] [place] [address] Rain Medellin CRNP [facility] [place] [address] 05/14/2024 1:45 PM EDT Office Visit MOHS Surgery [facility] [address] [facility] [address] Becky Gordon MD 200 [facility] [address] 10/14/2024 3:00 PM EST Office Visit Cardiology, [facility] [address] [place] [address] Fabian Mejia PA-C [address] [place] [address] 11/14/2024 2:00 PM EST Office Visit General Internal Medicine [facility] 200 [place] [address] Lokesh Amin MD 200 [facility] [place], [place] [address] 03/18/2025 10:45 AM EDT Office Visit Dermatology [facility] [place] [address] [facility] [place], [place] [address] Lokesh Mayen MD 200 [facility] [place], [place] [address] Scheduled Procedures Name Priority Associated Diagnoses Date/Ti [...] Additional history exists CKD PHOS USE SMARTSET 20131 03/27/2025 07/0 11/2023, 09/26/2023, 08/23/2022, Additional history exists Depression Screening 03/27/2025 03/27/2024 Diabetic Foot Exam 03/27/2025 03/27/2024, 02/21/2023 CKD HGB USE SMARTSET 28479 04/26/202504/26, 04/26/2024, 04/15/2024, Additional history exists DTaP,Tdap,and [...] this encounter Medical Devices Implanted Type Area Stand Grinder Device Identifier Shelf Expiration Date Model / Serial / Lot Strattice [id number] (400 Units) - [id number] Implanted:Qty : 400 on 10/25/2011 at [place] [facility] [place] Abdomen LIFE CELL MISTY 12/23/2012 [id number] / / [id number] Mesh Prolit Hernia [id number] - [id number] Implanted:Qty : 1 on 08/14/2012 at [place] [facility] Left: Abdomen [employer] M[employer]Y 12/24/2015 [id number] / / [id number] Suture Steel 6 B&S19 M654g - [id number] Implanted:Qty : 3 on 07/10/2020 by Ag Ballesteros MD at [place] [facility] N/A: Sternum JNJ : [employer] 02/22/2025 M654G / / [id number] Valve Heart Aortic Epic 23mm - [id number] - [id number] Implanted:Qty : 1 on 07/10/2020 by Ag Ballesteros MD at [place] [facility] N/A: Aorta ST DOMINIK : CARDIOVASCULAR [id number] 03/22/2024 [id number] 00 / [id number] / [id number] documented as of this encounter Advance Directives [...] 6:37 AM 01/27/2015 9:46 AM This order re flects the patients wishes and were consensually agreed [...] and were consensually agreed upon. Care Teams Clinical Registered Nurse Relationship Specialty Start Date End Date Lokesh Amin MD 200 [place] [address] PCP - General Internal Medicine 07/22/21 documented as of this encounter
--- OUTSIDE RECORDS SUMMARY | 2024-07-19 11:39 | External Medical Summary | Summary of Care ---
Author Name Unknown Organization [facility] Address [address] [place] [address] Phone [phone] Care Team Providers Care Cook Enchilada Name Role Phone Lokesh Amin MD Primary Care Provider + Reason for Visit * Reason Onset Date Comments Test Results Lab 04/19/2024 Encounter Details Date Type Department Care Team (Late st Contact Info) Description 04/19/2024 Telephone General Internal Medicine [facility] 200 [facility] [address] Lokesh Amin MD 200 [place] [address] Test Results Lab Allergies Active Allergy Reactions Criticality Noted Date Comments Demerol Neuro complications (Please comment) High 06/14/2010 confusion Adhesive Tape Rash Low 06/14/2010 documented as of this encounter (statuses as of 04/24/2024) Medications Medication Sig Dispensed Refills Start Date [...] as of this encounter (statuses as of 04/24/2024) Active Problems Problem Noted Date Diagnosed Date [...] as of this encounter (statuses as of 04/24/2024) Resolved Problems Problem Noted Date Diagnosed Date [...] as of this encounter (statuses as of 04/24/2024) Immunizations Name Administration Dates Next Due COVID-19 mRNA, LNP-s, No Pre serve, 2-Dose Series (7 Cups of Tea) 06/29/2021,12/15/2020,11/24/2020 COVID-19, LNP-s, No Preserve , Deric-sucrose, Ages 12+ (7 Cups of Tea) 02/04/2022 COVID-19, MRNA-LNP, 23-24, P F, 30 MCG/0.3 mL, 12 YRS AND ABOVE, IM ([employer]) 10/10/2023 Covid-19, Mrna, Lnp-s, Pf, B ivalent, 30 Mcg, IM, 12 yrs and above (7 Cups of Tea) 03/02/2023 Hepatitis B, 20+ yrs 04/01/2024,2023,09/29 Pneumococcal [...] encounter Miscellaneous Notes * Telephone Encounter - Shorty Ramos OSA - 04/24/2024 10:53 AM EDT Scheduled * Telephone Encounter - Lokesh Amin MD - 04/23/2024 9:24 AM EDT Noted, schedule bp check with nurse, bring home cuff to calibrate, please do within 1 week * Telephone Encounter - Carina Estrada MED ASSIST - 04/19/2024 4:06 PM EDT Patient aware and receptive to instructions. Med list adjusted. He does state that his blood pressure has been running on the low side at home. * Telephone Encounter - Carina Estrada MED ASSIST - 04/19/2024 4:03 PM EDT ----- Message from Lokesh Amin MD sent at 04/19/2024 9:53 AM EDT ----- 1. Lipids good 2. Magnesium a little low, start magnesium oxide 400 mg once a day. This is otc, add to med list once aware watch for loose stools, recheck 1 week 3. Gfr slightly improved, recheck 1 week to follow if not improving again then may need to adjust bp meds would cut metformin back to 500 mg twice a day from 1000 mg twice a day let us know if sugarsrise with this 4. Sugar is better and sodium is normalized, good work! documented in this encounter Plan of Treatment Upcoming Encounters Date Type Department Care Team (Late st Contact Info) Description 04/25/2024 2:00 PM EDT Nurse Only Ancillary [facility] 200 [facility] [place] [address] Nurse, Int Med [address] [facility] [place] [address] 04/26/2024 2:00 PM EDT Office Visit MOHS Surgery [facility] [address] [facility] [address] [place] [address] Becky Gordon MD 200 [facility] [place] [address] 05/06/2024 2:00 PM EDT Nurse Only Ancillary [facility] 200 [facility] [place] [address] Nurse, Int Med [address] [facility] [place] [address] 05/06/2024 2:20 PM EDT Office Visit Pharmacy, [facility] [place] [address] [place] [address] Pharmacist1, [facility] [address] [place] [address] 05/08/2024 2:00 PM EDT Office Visit Gastroenterology, [facility] 132 [facility] [place] [address] Rain Medellin CRNP [address] [place] [address] 10/14/2024 3:00 PM EST Office Visit Cardiology, [facility] [address] [place] [address] Fabian Mejia PA-C [address] [place] [address] 11/14/2024 2:00 PM EST Office Visit General Internal Medicine [facility] 200 [facility] [place] [address] Lokesh Amin MD 200 [facility] [place] [address] 03/18/2025 10:45 AM EDT Office Visit Dermatology [facility] 200 [facility] [place] [address] Lokesh Mayen MD 200 [facility] [place] [address] Scheduled Procedures Name Priority Associated Diagnoses Date/Ti [...] Additional history exists CKD PHOS USE SMARTSET 91706 03/27/2025 07/0 11/2023, 09/26/2023, 08/23/2022, Additional history exists Depression Screening 03/27/2025 03/27/2024 Diabetic Foot Exam 03/27/2025 03/27/2024, 02/21/2023 CKD HGB USE SMARTSET 93960 04/15/202504/15, 04/15/2024, 10/27/2023, Additional history exists DTaP,Tdap,and [...] this encounter Medical Devices Implanted Type Area Simulation Developer Device Identifier Shelf Expiration Date Model / Serial / Lot Strattice [id number] (400 Units) - [id number] Implanted:Qty : 400 on 10/25/2011 at [place] [facility] [place] Abdomen LIFE CELL MISTY 12/23/2012 [id number] / / [id number] Mesh Prolit Hernia [id number] - [id number] Implanted:Qty : 1 on 08/14/2012 at [place] [facility] [place] Left: Abdomen [employer] 12/24/2015 [id number] / / [id number] Suture Steel 6 B&S19 M654g - [id number] Implanted:Qty : 3 on 07/10/2020 by Ag Ballesteros MD at [place] [facility] [place] N/A: Sternum JNJ : [employer] 02/22/2025 M654G / / [id number] Valve Heart Aortic Epic 23mm - [id number] - [id number] Implanted:Qty : 1 on 07/10/2020 by Ag Ballesteros MD at [place] [facility] [place] N/A: Aorta ST DOMINIK : CARDIOVASCULAR [id number] 03/22/2024 [id number]- 00 / [id number] / [id number] documented as of this encounter Advance Directives [...] and were consensually agreed upon. Care Teams Cook Enchilada Relationship Specialty Start Date End Date Lokesh Amin MD [address] [place] [address] PCP - General Internal Medicine 07/22/21 documented as of this encounter
--- OUTSIDE RECORDS SUMMARY | 2024-07-19 11:39 | External Medical Summary | Summary of Care ---
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 Name Role Phone Lokesh Amin MD Primary Care Provider + Reason for Referral * Evaluate & Treat - Unlimited Visits (Within 3 days (urgent)) - Authorized Specialty Diagnoses / Procedures Referred By Contsonal t Referred To Contact Pharmacist / Pharmacy Diagnoses Type 2 diabetes mellitus with hemoglobin A1c goal of less than 8.0% ([facility]) Lokesh Amin MD [address] [place] [address] Referral ID Status Reason Start Date Expiration Date Visits Requested Visits Authorized [id number] Authorized Specialty Services Required 03/28/2024 09/24/2024 99 99 Question Answer Referral Priority Within 3 days (urgent) Where should this appointment be scheduled? [facility] Referring Provider Role: Primary Care Reason for Referral: DM Target A1c: < 8 Comments Pharmacist Medication Therapy Management: Minimum frequency patient should be seen in person for medication management: as appropriate per clinical condition and patient status By my signature, I understand that my patient Jhon Nelson will have his medication therapy managed by the [facility] Medication Therapy [facility] ([facility]) per established policies, procedures, and protocols. I also certify that this referral may serve as an initiation of service for the management of drug therapy in the above noted patient. [facility] providers will be responsible for scheduling patient visits, obtaining appropriate laboratory studies, and adjusting medication management therapy per patient's need, in addition to those roles spelled out in the clinic policy, procedures, and drug management protocols. I understand that the service provided by the [facility] is voluntary and have informed patient that they can refuse the service at their discretion. I am aware that the [facility] Clinic will provide me with a copy of the patient encounter via my [employer]. I authorize the [facility] to carry out these activities on my behalf. I consider this program to be a necessary part of the patient's medical care. Lokesh Amin MD Reason for Visit * Reason Comments Follow Up 6 month return. Pt d enied any new concerns Encounter Details Date Type Department Care Team (Late st Contact Info) Description 03/27/2024 12:00 PM EDT Office Visit General Internal Medicine [facility] [place] [address] [facility] [place] [address] Lokesh Amin MD [address] [facility] [place] [address] Basal cell carcinoma (BCC) of skin of left ear and external auditory canal*; Type 2 diabetes mellitus with hemoglobin A1c goal of less than 8.0% ([facility]); HTN, goal below 140/90; Stage 3a chronic kidney disease ([facility]); Chronic diastolic congestive heart failure ([facility]); Hypogonadism, male; PAF (paroxysmal atrial fibrillation) ([facility]); DM type 2 nursing care encounter ([facility]); S/P AVR (aortic valve replacement); Encounter for long-term (current) use of medications; Nocturia; Decreased GFR; Hypomagnesemia; Abnormal CBC measurement Allergies Active Allergy Reactions Criticality Noted Date Comments Demerol Neuro complications (Please comment) High 06/14/2010 confusion Adhesive Tape Rash Low 06/14/2010 documented as of this encounter (statuses as of 04/19/2024) Medications Medication Sig Dispensed Refills Start Date [...] morning. Active Lisinopril 5 MG Oral Tablet (Prinivil)Indicati ons:HTN, goal below 140/90,Heart failure, diastolic, due to HTN (HCC),S/P AVR (aortic valve replacement) Take 1 Tablet by mouth at bedtime. 90 Tablet 3 09/20/2023 Active Eliquis 5 MG Oral Tablet (Apixaban)Indicati [...] Oral Tablet Take by mouth. Ac tive OMEGA MG OR CAPS daily 0 01/17/2005 4 Discontinue d(Patient preference/ discontinua tion) Cholecalciferol (VITAMIN D) 1000 units Tablet Take 1 Tablet by mouth in the morning. 09/05/2017 4 Discontinue d(Patient preference/ discontinua tion) Fluorouracil 5 % External Cream (Efudex) Apply topically to affected area 2 times a day. apply to affected area. 40 g 08/22/2022 4 Discontinue d(Medicatio n List Clean Up) Cholestyramine 4 GM Oral Packet (Questran) Take 1 Packet by mouth in the morning. Mixed with liquid. Administer other oral medications 1 hour before or 6 hours after cholestyramine.. 30 Packet 2 03/02/2023 4 Discontinue d(Medicatio n List Clean Up) Hospital, Clinic, or Other Facility Administered Medication Ordered Dose Route Frequency Start Date End Date Status Testosterone Cypionate (Depotestosterone Cypionate) 200 MG/ML inj 100 mgIndications:Hypogonadism, male 100 mg IM QMONTH 01/11/2021 Active documented as of this encounter (statuses as of 04/19/2024) Active Problems Problem Noted Date Diagnosed Date [...] as of this encounter (statuses as of 04/19/2024) Resolved Problems Problem Noted Date Diagnosed Date [...] as of this encounter (statuses as of 04/19/2024) Immunizations Name Administration Dates Next Due COVID-19 mRNA, LNP-s, No Pre serve, 2-Dose Series (NextBio) 06/29/2021,12/15/2020,11/24/2020 COVID-19, LNP-s, No Preserve , Deric-sucrose, Ages 12+ (Pfizer) 02/04/2022 COVID-19, MRNA-LNP, 23-24, P F, 30 MCG/0.3 mL, 12 YRS AND ABOVE, IM ([facility] 10/10/2023 Covid-19, Mrna, Lnp-s, Pf, B ivalent, 30 Mcg, IM, 12 yrs and above (NextBio) 03/02/2023 Hepatitis B, 20+ yrs 04/01/2024,2023,09/29 Pneumococcal [...] oz pure alcohol) a glass in the evening- most nights but not all PHQ-2 Answer Date Recorded PHQ Adult Total [...] Sign Reading Time Taken Comments Blood Pressure 122/70 03/27/2024 12:09 PM EDT Pulse 82 03/27/2024 12:09 PM EDT Temperature 36.3 C (97.4 F) 03/27/2024 12:09 PM E DT Respiratory Rate - - Oxygen Saturation 96% 03/27/2024 12:09 PM EDT Inhaled Oxygen Concentration - - Weight 90.3 kg (199 lb) 03/27/2024 12:09 PM EDT Height 171.5 cm (5' 7.5") 03/27/2024 12:09 PM ED T Body Mass Index 30.71 03/27/2024 12:09 PM EDT documented in this [...] this encounter Patient Instructions * Patient Instructions* Radhika Staley MED MARGRET - 03/27/2024 12:12 PM EDT Diabetes: Keeping Feet Healthy Inspect your feet every day for signs of a problem. Diabetes can damage nerves in your feet and cause neuropathy. This condition makes it hard for you to feel injuries or sore spots. Diabetes can also change blood flow, making it harder for small problems, like a blister, to heal properly. In fact, minor injuries can quickly become serious infections that send you to the hospital. Practice self-care to protect your feet and keep them healthy. Take Special Care Inspect your feet daily for problems such as redness, blisters, cracks, dry skin, or numbness. Use a mirror to see the bottoms of your feet. Or, ask for help. Manage your diabetes. Monitor and control your blood sugar. Take all your medications as prescribed. Avoid walking barefoot, even indoors. Wash your feet with warm water and mild soap. Dry well, especially between toes. Dont treat corns or calluses yourself. Talk to your doctor or process manufacturing engineer (a doctor who specializes in foot care) if you need assistance trimming your toenails. Use moisturizing cream or lotion if you have dry skin, but dont use it between toes. Dont use heating pads on your feet. If you have neuropathy, you could get a burn and not feel it. Stop smoking. Smoking restricts blood flow and can make it harder for wounds to heal. Have Regular Checkups Foot problems can develop quickly. So be sure to follow your healthcare teams schedule for regular checkups. During office visits, take off your shoes and socks as soon as you get in the exam room. Ask your healthcare provider to examine your feet for problems. This will make it easier to find and treat small skin irritations before they get worse. Regular checkups can also help keep track of the blood flow and feeling in your feet. If you have neuropathy, you may need to have checkups more often. Wear Proper Footwear Wearing proper footwear is very important. If areas of your feet have been damaged by too much pressure, your healthcare provider may recommend changing your footwear. In some cases, avoiding high heels or tight work boots may be all thats needed. Or, your healthcare provider may recommend special shoes or custom inserts. These help protect your feet and keep existing irritations from getting worse. If you need special footwear, ask your healthcare provider if you qualify for [employer] diabetic shoe program. Make Sure Shoes and Socks Fit Any pair of shoes--new or old--should feel comfortable as soon as you put them on. There shouldnt be any rubbing when you walk. Wear the right shoe for any activity. For instance, a running shoe is designed to keep your feet injury-free while jogging. Buy shoes at the end of the day, when your feet are larger. Make sure they provide support without feeling too loose. Make sure your socks fit, t oo. Wear soft, seamless, well-padded socks for activity. Cotton or microfiber socks are best to help to absorb sweat. To protect your feet, avoid shoes that are open-toed or open-heeled. If you have questions about what kinds of shoes and socks are best, talk to your healthcare team. Get Regular Exercise Regular exercise improves blood flow in your feet. It also increases foot strength and flexibility.Gentle exercises, like walking or riding a stationary bicycle, are best. You can also do special foot exercises. Just be sure to talk with your healthcare provider before starting any exercise program. Also mention if any exercise causes pain, redness, or other signs of foot problems. Note: If you have any kind of break in the skin of your foot or ankle, keep the area clean. Then call your doctor--especially if the area doesnt appear to be healing. [phone] [employer], [address] [place] [address], [place] [address]. All rights reserved. This information is not intended as a substitute for professional medical care. Always follow your healthcare professional's instructions. documented in this encounter Progress Notes * Lokesh Amin MD - 03/27/2024 12:28 PM EDT Chief Complaint Patient presents with Follow Up 6 month return. Pt denied any new concerns SUBJECTIVE: Jhon Nelson is a 78 year old male with PMH as below who presents for f/u htn, hypogonadism,avr s/p repair, ckd 3, DM. No cp, pressure. Occasional sheehan with stairs, seems stable, no new sob. Did have basal cell removed left ear recently, doing well, sees derm for this. Follows with cardiology, taking eliquis ok, he does still want testosterone Patient Active Problem List Diagnosis Impotence of organic origin Incisional hernia Esophageal reflux Hypogonadism, male Osteoarthritis of right hip LVH (left ventricular hypertrophy) HTN, goal below 140/90 Aortic valve regurgitation Heart failure, diastolic, due to HTN (HCC) S/P AVR (aortic valve replacement) Left carotid stenosis Stage 3a chronic kidney disease Cardiac pacemaker in situ PAF (paroxysmal atrial fibrillation) ([facility]) Type 2 diabetes mellitus with hemoglobin A1c goal of less than 8.0% ([facility]) Chronic diastolic congestive heart failure (HCC) Basal cell carcinoma (BCC) of skin of left ear and external auditory canal Current Outpatient Medications Medication Sig Dispense Refill [...] 500 mg by mouth in the morning. Lisinopril 5 MG Oral Tablet (Prinivil) Take 1 Tablet by mouth at bedtime. 90 Tablet 3 Eliquis 5 MG Oral Tablet (Apixaban) TAKE [...] Silver 50+Men Oral Tablet Take by mouth. OMEGA MG OR CAPS daily (Patient not taking: Reported on 03/27/2024) 0 Cholecalciferol (VITAMIN D) 1000 units Tablet Take 1 Tablet by mouth in the morning. (Patient not taking: Reported on 03/27/2024) Abrysvo 120 MCG/0.5ML Intramuscular Solution Reconstituted (RSV Pre-Fusion F A&B Vac Rcmb) as directed (Patient not taking: Reported on 03/27/2024) 1 Each 0 COVID-19 mRNA Vaccine 12 years and above Pfizer 30 MCG/0.3 ML IM SUSP Inject into a large muscle asdirected (Patient not taking: Reported on 03/27/2024) 0.3 mL 0 Current Facility-Administered Medications Medication Dose Route Frequency Provider Last Rate Last Admin Testosterone Cypionate (Depotestosterone Cypionate) 200 MG/ML inj 100 mg 100 mg Intramuscular Q Month Justen Ewing, DO 100 mg at 03/04/24 1517 Review of patient's allergies indicates: Allergen Reactions Demerol Neuro complications (Please comment) confusion Tape [Adhesive Tape] Rash Health Maintenance Due Topic Date Due COVID-19 Vaccine ( season) 2023 GFR 12/26/2023 HbA1c 03/26/2024 ROS: CONSTITUTIONAL: No weakness and No fevers, sweats, or chills EYE: No recent significant change in vision, No eye pain, redness, discharge, and No diplopia PULMONARY: No recent change in breathing CARDIOVASCULAR: No chest pain, No orthopnea, No paroxysmal nocturnal dyspnea, No edema, No palpitations, and No syncope GASTROINTESTINAL: No abdominal pain, No change in bowel habits, No significant heartburn, No significant change in appetite, No nausea, vomiting, diarrhea, or constipation, No hematemesis, No blood in stools or black tarry stools, No abdominal bloating or early satiety, and No dysphagia ALL OTHER SYSTEMS NEGATIVE I reviewed social, PMH, PSH, and family history and updated where needed. 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 Employer: [employer] [address] Tobacco Use Smoking status: Former Types: Cigars Quit date: 04/17/2010 Years since quittin.9 Smokeless tobacco: Never Vaping Use Vaping status: Never Used Substance and Sexual Activity Alcohol use: Yes Alcohol/week: 5.8 standard drinks of alcohol Types: 7 5 oz of wine per week Comment: a glass in the evening- most nights but not all Drug use: No Sexual activity: Yes Partners: Female Other Topics Concern Service Yes Comment: [place] 1 year Blood Transfusions Yes Comment: [phone] Caffeine Concern Yes Comment: lots of coffee 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 Sleep Concern No [...] Diagnosis Date Acute pancreatitis Adrenal mass, 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 Bowel obstruction ([facility]) Cardiac pacemaker in situ 11/19/2020 Diverticulitis of colon Glaucoma 01/30/2007 dr rivas HTN, goal below 140/90 12/11/2018 Impotence of organic origin Left carotid stenosis 08/18/2020 PAF (paroxysmal atrial fibrillation) ([facility]) 02/01/2022 Panniculitis 03/07/2012 Type 2 diabetes mellitus with hemoglobin A1c goal of less than 8.0% ([facility]) 08/24/2022 Past Surgical History: Procedure Laterality Date COLONOSCOPY 11/18/2005 Normal repeat in 10 years COLONOSCOPY, DIAGNOSTIC (RECTUM) 01/21/2016 diverticulosis, repeat 10 yrs/COLONOSCOPY FLEXIBLE PROXIMAL DIAGNOSTIC performed by Steve Baehna MD at [facility] COLONOSCOPY, DIAGNOSTIC (RECTUM) 05/19/2023 dvierticulosis / COLONOSCOPY FLEXIBLE PROXIMAL DIAGNOSTIC performed by Freddy Arthur MD at [facility] CYSTOSCOPY 02/26/2013 CYSTOSCOPY 08/05/2014 CYSTOSCOPY 12/26/2014 CYSTOSCOPY/DILATE BLADDER N/A 01/27/2015 CYSTOURETHROSCOPY DILATION BLADDER GENERAL ANESTHESIA performed by Colt North MD at [facility] CYSTOSCOPY/TREAT MINOR LESION(S) N/A 01/27/2015 CYSTOURETHROSCOPY WITH FULGURATION MINOR BLADDER TUMOR performed by Colt North MD at [facility] IMPLANT MESH W/ ABD HERNIA REPR/DEBRIDE 08/14/2012 IMPLANTATION MESH WITH INCISIONAL/VENTRAL HERNIA performed by Adryan Kunz MD at [facility] MUSCLE-SKIN FLAP, TRUNK 10/18/2011 MUSCLE MYOCUTANEOUS OR FASCIOCUTANEOUS FLAP TRUNK performed by NANCY GARCIA at [facility] MUSCLE-SKIN FLAP, TRUNK 10/25/2011 MUSCLE MYOCUTANEOUS OR FASCIOCUTANEOUS FLAP TRUNK performed by NANCY GARCIA at OR [facility] PARTIAL REMOVAL OF COLON REMOVAL OF APPENDIX REMOVAL OF PROSTATE (TURP) 01/27/2015 TRANSURETHRAL RESECTION PROSTATE ELECTROSURGICAL performed by Colt North MD at OR [facility] REMOVAL OF TONSILS, UNDER AGE 12 REMOVE GALLBLADDER REPAIR INITIAL INCISIONAL OR VENTRAL HERNIA; REDUCIBLE 04/25/2011 REPAIR INITIAL INCISIONAL /VENTRAL HERNIA REDUCIBLE performed by [place] CHRISTINE at OR [facility]-not performed REPAIR INITIAL INCISIONAL OR VENTRAL HERNIA; REDUCIBLE 09/22/2011 REPAIR INITIAL INCISIONAL /VENTRAL HERNIA REDUCIBLE performed by [place] CHRISTINE at OR [facility] REPAIR INITIAL INCISIONAL OR VENTRAL HERNIA; REDUCIBLE 10/25/2011 REPAIR INITIAL INCISIONAL /VENTRAL HERNIA REDUCIBLE performed by [place] CHRISTINE at OR [facility] REPAIR INITIAL INCISIONAL OR VENTRAL HERNIA; REDUCIBLE [...] Thyroid Disorder Brother OBJECTIVE: PHYSICAL EXAM: BP 122/70 | Pulse 82 | Temp 36.3 C (97.4 F) (Tympanic) | Ht 1.715 m (5' 7.5") | Wt 90.3 kg (199lb) | SpO2 96% | BMI 30.71 kg/m | BSA 2.07 m General: alert, healthy, and no distress Head: Normocephalic, No masses, lesions, or abnormalities then left ear bandaged Eye Exam: conjunctiva are pink and non-injected, sclera clear Heart: regular rate & rhythm, no murmur, no gallops, PMI non-displaced, S-1 normal, and S-2 normal Lungs: normal respiratory rate and rhythm, lungs clear to auscultation Psych: normal affect, no flight of ideas or tangential thought, good eye contact, no pressured speech I reviewed last psa, testosterone, A1c, lipid ASSESSMENT: C44.219 Basal cell carcinoma (BCC) of skin of left ear and external auditory canal (primary encounter diagnosis) E11.9 Type 2 diabetes mellitus with hemoglobin A1c goal of less than 8.0% (HCC) I10 HTN, goal below 140/90 N18.31 Stage 3a chronic kidney disease (HCC) I50.32 Chronic diastolic congestive heart failure (HCC) E29.1 Hypogonadism, male I48.0 PAF (paroxysmal atrial fibrillation) ([facility]) E11.9 DM type 2 nursing care encounter ([facility]) Z95.2 S/P AVR (aortic valve replacement) Z79.899 Encounter for long-term (current) use of medications R35.1 Nocturia PLAN: Basal cell carcinoma (BCC) of skin of left ear and external auditory canal (Primary) Appreciate MOHS/derm aid Type 2 diabetes mellitus with hemoglobin A1c goal of less than 8.0% ([facility]) - HEMOGLOBIN A1C; Future; Expected date: 03/27/2024 - HEMOGLOBIN A1C; Future; Expected date: 09/27/2024 Cont diet Recheck labs HTN, goal below 140/90 - COMPREHENSIVE METABOLIC PANEL; Future; Expected date: 09/27/2024 - LIPID PANEL WITH DIRECT LDL IF TG IS HIGH; Future; Expected date: 09/27/2024 Controlled Cont aldactone, lisinopril, metoprolol, lasix Stage 3a chronic kidney disease (HCC) - RENAL FUNCTION PANEL; Future; Expected date: 03/27/2024 Labs today Chronic diastolic congestive heart failure (HCC) Euvolemic Cont med Cont f/u cardiology Hypogonadism, male - PSA; Future; Expected date: 09/27/2024 - CBC WITH WBC DIFFERENTIAL; Future; Expected date: 09/27/2024 Prefers to continue testosterone PAF (paroxysmal atrial fibrillation) ([facility]) Cont metoprolol, eliquis DM type 2 nursing care encounter ([facility]) - DIABETES FOOT EXAM S/P AVR (aortic valve replacement) Sees cardiology Doing well Encounter for long-term (current) use of medications - VITAMIN B12; Future; Expected date: 09/27/2024 - MAGNESIUM; Future; Expected date: 09/27/2024 Nocturia - PSA; Future; Expected date: 09/27/2024 Stable for years, follow psa Follow Up: Return in about 6 months (around 09/27/2024), or if symptoms worsen or fail to improve, for Labs Today, Fasting Labs 2-5 Days Before Next Visit. | For: Labs Today, Fasting Labs 2-5 Days Before Next Visit Lokesh Amin MD * Radhika Staley MED ASSIST - 03/27/2024 12:12 PM EDT DM Foot Exam completed today. Provider aware. CHANDA Vicente Socks and Shoes Removed for Annual Diabetic Foot Screening RIGHT FOOT: No Reddened, Cracking, Or Open Areas Noted. RIGHT Dorsalis Pedis Pulse: Palpable RIGHT Posterior Tibial Pulse: Palpable RIGHT Monofilament:Patient reports feeling monofilament pressure on plantar surface of foot LEFT FOOT: No Reddened, Cracking or Open Areas Noted. LEFT Dorsalis Pedis Pulse: Palpable LEFT Posterior Tibial Pulse: Palpable LEFT Monofilament:Patient reports feeling monofilament pressure on plantar surface of foot Do you need diabetic shoes: No documented in this encounter Nursing Notes * Radhika Staley MED ASSIST - 03/27/2024 12:11 PM EDT Chief Complaint Patient presents with Follow Up 6 month return. Pt denied any new concerns documented in this encounter Miscellaneous Notes * Addendum Note - Lokesh Amin MD - 04/19/2024 9:53 AM EDTAddended by: LOKESH AMIN on: 04/19/2024 09:53 AM Modules accepted: Orders * Addendum Note - Lokesh Amin MD - 04/11/2024 8:17 AM EDTAddended by: LOKESH AMIN on: 04/11/2024 08:17 AM Modules accepted: Orders * Addendum Note - Lokesh Amin MD - 04/04/2024 8:27 AM EDTAddended by: LOKESH AMIN on: 04/04/2024 08:27 AM Modules accepted: Orders * Addendum Note - Lokesh Amin MD - 03/28/2024 2:29 PM EDTAddended by: LOKESH AMIN on: 03/28/2024 02:29 PM Modules accepted: Orders documented in this encounter Plan of Treatment Upcoming Encounters Date Type Department Care Team (Late st Contact Info) Description 04/26/2024 2:00 PM EDT Office Visit MOHS Surgery [facility] [place] [address] [facility], [place] [address] Becky Gordon MD 200 [facility], [place] [address] 05/06/2024 2:00 PM EDT Nurse Only Ancillary [facility] [place] [address] [facility] [place] [address] Nurse, Int Med [address] [place] [address] 05/06/2024 2:20 PM EDT Office Visit Pharmacy, [facility] [place] [address] [facility] [address] [place], [place] [address] Pharmacist1, [facility] [address] [facility] [place], [place] [address] 10/14/2024 3:00 PM EST Office Visit Cardiology, [facility] [address] [place] [address] Fabian Mejia PA-C [address] [place] [address] 11/14/2024 2:00 PM EST Office Visit General Internal Medicine [facility] [address] [facility] [place] [address] Lokesh Amin MD [address] [facility] [place] [address] 03/18/2025 10:45 AM EDT Office Visit Dermatology [facility] [address] [facility] [place] [address] Lokesh Mayen MD [address] [facility] [place] [address] Scheduled Orders Name Type Priority Associated Diagnoses Orde r Schedule MAGNESIUM Lab Routine Hypomagnesemia Expected: 04/19/2024 (Approximate), Expires: 04/19/2025 HEMOGLOBIN A1C Lab Routine Type 2 diabetes mellitus with hemoglobin A1c goal of less than 8.0% (HCC) Expected: 07/20/2024 (Approximate), Expires: 04/19/2025 BASIC METABOLIC PANEL Lab Routine Chronic diastolic congestive heart failure (HCC) Expected: 04/19/2024 (Approximate), Expires: 04/19/2025 CBC WITH WBC DIFFERENTIAL Lab Routine Abnormal CBC measurement Expected: 04/19/2024 (Approximate), Expires: 04/19/2025 Scheduled Procedures Name Priority Associated Diagnoses Date/Ti me COLONOSCOPY FLEXIBLE PROXIMAL DIAGNOSTIC Recall Colon cancer screening Scheduled Referrals Name Type Priority Associated Diagnoses Orde r Schedule PHARMACIST MEDS THERAPY MGMT REFERRAL OP Referral Within 3 days (urgent) Type 2 diabetes mellitus with hemoglobin A1c goal of less than 8.0% (HCC) Ordered: 03/28/2024 Health Maintenance Due Date Last Done Comments COVID-19 Vaccine ( season) 2023 10/10/2023, 03/02/2023, 02/04/2022, Additional history exists Influenza Vaccine (FLU shot) (#1) 2024 06/26/2023, 06/09/2022, 06/17/2021, Additional history exists Diabetic Eye Exam 08/01/2024 08/01/2023, , 07/25/2005 Albumin/Creatinine Ratio 09/26/2024 09/26/2023, 07/27 GFR 10/16/2024 04/15/2024, 03/25, 04/03/2024, Additional history exists HbA1c 10/16/2024 04/15/2024, 11/2023, 09/26/2023, Additional history exists CKD PHOS USE SMARTSET 40548 03/27/202511/2023, 09/26/2023, 08/23/2022, Additional history exists Depression Screening 03/27/2025 03/27/2024 Diabetic Foot Exam 03/27/2025 03/27/2024, 02/21/2023 CKD HGB USE SMARTSET 07451 04/15/202504/15, 04/15/2024, 10/27/2023, Additional history exists DTaP,Tdap,and [...] this encounter Medical Devices Implanted Type Area Probation Worker Device Identifier Shelf Expiration Date Model / Serial / Lot Strattice [id number] (400 Units) - [id number] Implanted:Qty : 400 on 10/25/2011 at OR [facility] Abdomen LIFE CELL MISTY 12/23/2012 [id number] / / [id number] Mesh Prolit Hernia [id number] - [id number] Implanted:Qty : 1 on 08/14/2012 at OR [facility] Left: Abdomen [employer] 12/24/2015 [id number] / / [id number] Suture Steel 6 B&S19 M654g - [id number] Implanted:Qty : 3 on 07/10/2020 by Ag Ballesteros MD at OR [facility] N/A: Sternum JNJ : [employer] 02/22/2025 [id number] / / [id number] Valve Heart Aortic Epic 23mm - [id number] - [id number] Implanted:Qty : 1 on 07/10/2020 by Ag Ballesteros MD at OR [facility] N/A: Aorta ST DOMINIK : CARDIOVASCULAR [id number] 03/22/2024 [id number] / [id number] / [id number] documented as of this encounter Results * (ABNORMAL) HEMOGLOBIN A1C (04/15/2024 2:59 PM EDT) Hemoglobin A1C 11.7(H) 4.0 - 5.6 % 04/16/2024 3:27 AM EDT LABORATORY [facility] Comment:The use of HbA1c to monitor glycemic status is based on normal hemoglobin and HbA composition. This test should not be used in patients with abnormal hemoglobin that affects the half life of the red blood cell or the in vivo glycation rates. Estimated Average Glucose 289(H) <126 mg/dL 04/16/2024 3:27 AM EDT LABORATORY [facility] Blood Venous blood specimen / Unknown Venipuncture / Unknown 04/15/2024 2:59 PM EDT 04/15/2024 2:59 PM EDT Lokesh Amin MD LAB BLOOD ORDERA BLES LABORATORY [facility] [address] [place] [address] * (ABNORMAL) MAGNESIUM (04/15/2024 2:59 PM EDT) Magnesium 1.2(L) 1.5 - 2.6 mg/dL 04/16/2024 4:53 AM EDT LABORATORY [facility] Blood Venous blood specimen / Unknown Venipuncture / Unknown 04/15/2024 2:59 PM EDT 04/15/2024 2:59 PM EDT Lokesh Amin MD LAB BLOOD ORDERA BLES Performing Organization Address [facility]/ZIP Co de Phone Number LABORATORY [facility] [address] [place] [address] * VITAMIN B12 (04/15/2024 2:59 PM EDT) [facility] Vitamin B12 531 232 - 1,245 pg/mL 04/16/2024 12:15 PM EDT LABORATORY [facility] Blood Venous blood specimen / Unknown Venipuncture / Unknown 04/15/2024 2:59 PM EDT 04/15/2024 2:59 PM EDT Lokesh Amin MD LAB BLOOD ORDERA BLES Performing Organization Address [facility] Co de Phone Number LABORATORY [facility] [address] [place] [address] * PSA (04/15/2024 2:59 PM EDT) [facility] PSA 0.95 <4.10 ng/mL 04/16/2024 4:01 AM EDT LABORATORY [facility] Blood Venous blood specimen / Unknown Venipuncture / Unknown 04/15/2024 2:59 PM EDT 04/15/2024 2:59 PM EDT Lokesh Amin MD LAB BLOOD ORDERA BLES Performing Organization Address [facility] Co de Phone Number LABORATORY [facility] [address] [place] [address] * (ABNORMAL) LIPID PANEL WITH DIRECT LDL IF TG IS HIGH (04/15/2024 2:59 PM EDT) [facility] Triglycerides 140 <=174 mg/dL 04/16/2024 4:53 AM EDT LABORATORY [facility] Comment: Triglyceride Reference Ranges (mg/dL): <150 Acceptable 150-174 Borderline high 175-499 High >=500 Very high Cholesterol 74 <200 mg/dL 04/16/2024 4:53 AM EDT LABORATORY [facility] Comment: Total Cholesterol Reference Ranges (mg/dL): <200 Desirable 200-239 Borderline high >=240 High HDL Cholesterol 33(L) >39 mg/dL 4:53 AM EDT LABORATORY [facility] Comment: HDL Cholesterol Reference Ranges (mg/dL): >=60 High (Desirable) <50 Low (Undesirable) For Females <40 Low (Undesirable) For Males Non-HDL Cholesterol 41 <=159 mg/dL 04/16/2024 4:53 AM EDT LABORATORY [facility] Comment: Non-HDL Cholesterol Reference Range (mg/dL): <100 Target level for high risk ASCVD patient <130 Optimal for general population 130-159 Near optimal for general population 160-189 Borderline High 190-219 High >=220 Very High LDL Cholesterol 13 <=129 mg/dL 04/16/2024 4:53 AM EDT LABORATORY [facility] Comment: LDL Cholesterol Reference Ranges (mg/dL): <70 Target level for high risk ASCVD patient <100 Optimal for general population 100-129 Near optimal for general population 130-159 Borderline high 160-189 High >=190 Very high Blood Venous blood specimen / Unknown Venipuncture / Unknown 04/15/2024 2:59 PM EDT 04/15/2024 2:59 PM EDT Lokesh Amin MD LAB BLOOD ORDERA BLES LABORATORY [facility] [address] [place] [address] * (ABNORMAL) COMPREHENSIVE METABOLIC PANEL (04/15/2024 2:59 PM EDT) BUN 22(H) 6 - 20 mg/dL 04/15/2024 4:53 PM EDT LAB[facility]ATORY [place] 57-10 Creatinine 1.6(H) 0.6 - 1.2 mg/dL 04/15/2024 4:53 PM EDT LABORATORY [place] 57-10 Estimated Glomerular Filtration Rate 46(L) >=60 mL/min 04/15/2024 4:53 PM EDT LABORATORY [place] 57-10 Comment:eGFR is calculated b ased on the CKD-EPI 2020 equation. Sodium 138 135 - 146 mmol/L 04/15/2024 4:53 PM EDT LAB[facility]ATORY [place] 57-10 Potassium 4.3 3.5 - 5.1 mmol/L 04/15/2024 4:53 PM EDT LAB[facility]ATORY [place] 57-10 Chloride 100 98 - 107 mmol/L 04/15/2024 4:53 PM EDT LAB[facility]ATORY [place] 57-10 CO2 26 22 - 32 mmol/L 04/15/2024 4:53 PM EDT LAB[facility]ATORY [place] 57-10 Anion Gap 12 7 - 15 mmol/L 04/15/2024 4:53 PM EDT LAB[facility]ATORY [place] 57-10 Glucose 89 70 - 120 mg/dL 04/15/2024 4:53 PM EDT LAB[facility]ORY [place] 57-10 Albumin 4.1 3.8 - 5.0 g/dL 04/15/2024 4:53 PM EDT LAB[facility]ATORY [place] 57-10 AST 31 10 - 50 U/L 04/15/2024 4:53 PM EDT LAB[facility]ORY [place] 57-10 Alkaline Phosphatase 74 35 - 130 U/L 04/15/2024 4:53 PM EDT LAB[facility]ATORY [place] 57-10 Bilirubin, Total 0.8 <=1.2 mg/dL 04/15/2024 4:53 PM EDT LAB[facility] [place] 57-10 Calcium 9.3 8.4 - 10.2 mg/dL 04/15/2024 4:53 PM EDT LAB[facility]ORY [place] 57-10 Protein 6.4 6.0 - 8.3 g/dL 04/15/2024 4:53 PM EDT LAB[facility]ATORY [place] 57-10 ALT 37 10 - 50 U/L 04/15/2024 4:53 PM EDT LAB[facility]ATORY [place] 57-10 Blood Venous blood specimen / Unknown Venipuncture / Unknown 04/15/2024 2:59 PM EDT 04/15/2024 2:59 PM EDT Lokesh Amin MD LAB BLOOD ORDERA BLES LABORATORY [place] 57-10 [address] [place] [address] * (ABNORMAL) BASIC METABOLIC PANEL (04/10/2024 3:16 PM EDT) BUN 35(H) 6 - 20 mg/dL 04/10/2024 4:19 PM EDT LAB[facility]ATORY [place] 57-10 Creatinine 1.7(H) 0.6 - 1.2 mg/dL 04/10/2024 4:19 PM EDT LAB[facility]ATORY [place] 57-10 Estimated Glomerular Filtration Rate 40(L) >=60 mL/min 04/10/2024 4:19 PM EDT LABORATORY [place] 57-10 Comment:eGFR is calculated b ased on the CKD-EPI 2020 equation. Sodium 132(L) 135 - 146 mmol/L 04/10/2024 4:19 PM EDT LAB[facility]ATORY [place] 57-10 Potassium 4.2 3.5 - 5.1 mmol/L 04/10/2024 4:19 PM EDT LAB[facility]ATORY [place] 57-10 Chloride 96(L) 98 - 107 mmol/L 04/10/2024 4:19 PM EDT LAB[facility]ATORY [place] 57-10 CO2 25 22 - 32 mmol/L 04/10/2024 4:19 PM EDT LAB[facility]ATORY [place] 57-10 Anion Gap 11 7 - 15 mmol/L 04/10/2024 4:19 PM EDT LAB[facility]ATORY [place] 57-10 Glucose 130(H) 70 - 120 mg/dL 04/10/2024 4:19 PM EDT LAB[facility]ATORY [place] 57-10 Calcium 10.4(H) 8.4 - 10.2 mg/dL 04/10/2024 4:19 PM EDT LAB[facility]ATORY [place] 57-10 Blood Venous blood specimen / Unknown Venipuncture / Unknown 04/10/2024 3:16 PM EDT 04/10/2024 3:16 PM EDT Lokesh Amin MD LAB BLOOD ORDERA BLES [facility]AT[facility] 57-[address] [place] [address] * (ABNORMAL) BASIC METABOLIC PANEL (04/03/2024 2:47 PM EDT) Pathologist [facility] BUN 19 6 - 20 mg/dL 04/03/2024 4:23 PM EDT [address] Creatinine 1.2 0.6 - 1.2 mg/dL 04/03/2024 4:23 PM EDT [address] Estimated Glomerular Filtration Rate 64 >=60 mL/min 04/03/2024 4:23 PM EDT [address] Comment:eGFR is calculated b ased on the CKD-EPI 2020 equation Sodium 131(L) 135 - 146 mmol/L 04/03/2024 4:23 PM EDT [address] Potassium 4.0 3.5 - 5.1 mmol/L 04/03/2024 4:23 PM EDT [address] Chloride 93(L) 98 - 107 mmol/L 04/03/2024 4:23 PM EDT [address] CO2 22 22 - 32 mmol/L 04/03/2024 4:23 PM EDT [address] Anion Gap 16(H) 7 - 15 mmol/L 04/03/2024 4:23 PM EDT [address] Glucose 471(H) 70 - 120 mg/dL 04/03/2024 4:23 PM EDT [address] Calcium 9.4 8.4 - 10.2 mg/dL 04/03/2024 4:23 PM EDT [facility] 56 Blood Venous blood specimen / Unknown Venipuncture / Unknown 04/03/2024 2:47 PM EDT 04/03/2024 2:47 PM EDT Lokesh Amin MD LAB BLOOD ORDERA BLES [facility] [address] [place] [address] * (ABNORMAL) HEMOGLOBIN A1C (03/27/2024 12:34 PM EDT) [facility] Hemoglobin A1C 12.4(H) 4.0 - 5.6 % 03/27/2024 7:40 PM EDT LABORATORY [facility] Comment:The use of HbA1c to monitor glycemic status is based on normal hemoglobin and HbA composition. This test should not be used in patients with abnormal hemoglobin that affects the half life of the red blood cell or the in vivo glycation rates. Estimated Average Glucose 309(H) <126 mg/dL 03/27/2024 7:40 PM EDT LABORATORY [facility] Blood Venous blood specimen / Unknown Venipuncture / Unknown 03/27/2024 12:34 PM EDT 03/27/2024 12:34 PM EDT Lokesh Amin MD LAB BLOOD ORDERA BLES LABORATORY [facility] [address] [place] [address] * (ABNORMAL) RENAL FUNCTION PANEL (03/27/2024 12:34 PM EDT) BUN 14 6 - 20 mg/dL 03/27/2024 2:18 PM EDT [address] Creatinine 1.3(H) 0.6 - 1.2 mg/dL 03/27/2024 2:18 PM EDT [place] [address] Estimated Glomerular Filtration Rate 55(L) >=60 mL/min 03/27/2024 2:18 PM EDT [place] [address] Comment:eGFR is calculated b ased on the CKD-EPI 2020 equation Sodium 132(L) 135 - 146 mmol/L 03/27/2024 2:18 PM EDT [facility] 56- Potassium 4.1 3.5 - 5.1 mmol/L 03/27/2024 2:18 PM EDT [facility] 56- Chloride 92(L) 98 - 107 mmol/L 03/27/2024 2:18 PM EDT [place] [address]- CO2 26 22 - 32 mmol/L 03/27/2024 2:18 PM EDT [address] Anion Gap 14 7 - 15 mmol/L 03/27/2024 2:18 PM EDT [address] Glucose 459(H) 70 - 120 mg/dL 03/27/2024 2:18 PM EDT [facility] 56- Calcium 10.1 8.4 - 10.2 mg/dL 03/27/2024 2:18 PM EDT [facility] 56- Albumin 4.3 3.8 - 5.0 g/dL 03/27/2024 2:18 PM EDT [facility] 56- Phosphorus 3.2 2.5 - 4.8 mg/dL 03/27/2024 2:18 PM EDT [facility] 56- Blood Venous blood specimen / Unknown Venipuncture / Unknown 03/27/2024 12:34 PM EDT 03/27/2024 12:34 PM EDT Lokesh Amin MD LAB BLOOD ORDERA BLES Performing Organization Address City/State/[facility] Co de Phone Number [facility] [address]- [address] [place] [address] documented in this encounter Visit Diagnoses Diagnosis Basal cell carcinoma (BCC) of skin of left ear and external auditory canal- Primary Type 2 diabetes mellitus with hemoglobin A1c goal of less than 8.0% ([facility]) HTN, goal below 140/90 Unspecified essential hypertension Stage 3a chronic kidney disease ([facility]) Chronic diastolic congestive heart failure (HCC) Chronic diastolic heart failure Hypogonadism, male Other testicular hypofunction PAF (paroxysmal atrial fibrillation) ([facility]) Atrial fibrillation DM type 2 nursing care encounter ([facility]) Type II or unspecified type diabetes mellitus without mention of complication, not stated as uncontrolled S/P AVR (aortic valve replacement) Heart valve replaced by other means Encounter for long-term (current) use of medications Encounter for long-term (current) use of other medications Nocturia Decreased GFR Nonspecific abnormal results of kidney function study Hypomagnesemia Disorders of magnesium metabolism Abnormal CBC measurement Other abnormal blood chemistry documented in this encounter Advance Directives * Full Code (Latest Code Status on File) Date Activated Date Inactivated Comments 07/10/2020 3:38 PM 07/15/2020 5:10 PM Question Answer Comments Discussion of Advance Directives occurred with: Not Discussed * Full Code Date Activated Date Inactivated Comments 01/27/2015 9:46 AM 01/27/2015 4:12 PM This order re flects the patients wishes [...] and were consensually agreed upon. Care Teams Commercial Green Building Designer Relationship Specialty Start Date End Date Lokesh Amin MD [address] [facility] [place] [address] PCP - General Internal Medicine 07/22/21 documented as of this encounter
--- OUTSIDE RECORDS SUMMARY | 2024-07-19 11:39 | External Medical Summary ---
Author Name Unknown Address Unknown Organization K01:LABORATORY [facility] - [address] [place] [address] Laboratory Report Ordering Provider Test Date Status MICHAEL TRACY 04/26/2024 14:40:31 Final Observation Date Value Abnormality Reference (Units ) Status MYCODE SPECIMEN-SST 04/26/2024 14:40:31 Freezing of extracted DNA, whole blood and/or serum. Final Performing Location LABORATORY [facility] - [address] [place] [address]
--- OUTSIDE RECORDS SUMMARY | 2024-07-19 11:39 | External Medical Summary | Summary of Care ---
Author Name Unknown Organization [facility] Address [address] [place] [address] Phone [phone] Care Team Providers Care Information Assurance Engineer Name Role Phone Lokesh Amin MD Primary Care Provider + Reason for Visit * Reason Onset Date Comments Blood Pressure Check 04/25/2024 Encounter Details Date Type Department Care Team (Late st Contact Info) Description 04/25/2024 Telephone General Internal Medicine [facility] [address] [facility] [address] Lokesh Amin MD [address] [place] [address] Blood Pressure Check Allergies Active Allergy Reactions [...] Oral Tablet Take by mouth. Ac tive Genera EnergyTouch Verio w/Device KitIndications:Type 2 diabetes mellitus with hemoglobin A1c goal of less than 8.0% ([facility]) Use up to check sugar first thing in am and 2 hours after meals 1 Kit 04/04/2024 Active Genera EnergyTouch Verio In Vitro Strip (Glucose Blood)Indications:T ype [...] less than 8.0% ([facility]) Inject 10 Units under the skin daily. Titrating dose - max dose 30 units daily. DX: E11.9 5 Each 04/04/2024 Active Insulin Pen Needle 32G X 6 MMIndications:Type 2 diabetes mellitus with hemoglobin A1c goal of less than 8.0% ([facility]) Use to inject insulin once daily. 100 Each 04/04/2024 Active metFORMIN HCl ER 500 MG Oral Tablet Extended Release 24 Hour (Glucophage XR)Indications:Type 2 diabetes mellitus with hemoglobin A1c goal of less than 8.0% ([facility]) Take 2 Tablets by mouth 2 times a day with morning and evening meals. Begin with one tablet twice daily for one week then increase to two tablets twice daily 360 Tablet 3 04/04/2024 Active Hospital, Clinic, or Other Facility Administered [...] mRNA, LNP-s, No Pre serve, 2-Dose Series ([employer]) 06/29/2021,12/15/2020,11/24/2020 COVID-19, LNP-s, No Preserve , Deric-sucrose, Ages 12+ ([employer]) 02/04/2022 COVID-19, MRNA-LNP, 23-24, P F, 30 MCG/0.3 mL, 12 YRS AND ABOVE, IM ([facility]) 10/10/2023 Covid-19, Mrna, Lnp-s, Pf, B ivalent, 30 Mcg, IM, 12 yrs and above ([employer]) 03/02/2023 Hepatitis B, 20+ yrs 04/01/2024,2023,09/29 Pneumococcal [...] Telephone Encounter - Lokesh Amin MD - 04/30/2024 12:39 PM EDT To stop lisinopril see result note * Telephone Encounter - Carina Estrada MED ASSIST - 04/25/2024 2:16 PM EDT Jhon Nelson presented for blood [...] 05/06/2024 2:00 PM EDT Nurse Only Ancillary State Nimesh Whitfield [address] [place] [address] Nurse, Joan Redding [address] [place] [address] 05/06/2024 2:20 PM EDT Office Visit Pharmacy, [facility] [address] [facility] [place] [address] Pharmacist1, [facility] [address] [facility] [place] [address] 05/08/2024 2:00 PM EDT Office Visit Gastroenterology, [facility] [address] [place] [address] Rain Medellin CRNP [address] [place] [address] 05/14/2024 1:45 PM EDT Office Visit MOHS Surgery [facility] [address] [place] [address] Becky Gordon MD [address] [facility] [place] [address] 10/14/2024 3:00 PM EST Office Visit [facility], [facility] [address] Fabian Mejia [facility] [address] [facility] [address] 11/14/2024 2:00 PM EST Office Visit General Internal Medicine [facility] [address] [facility] [place] [address] Lokesh Amin MD [address] [facility] [place] [address] 03/18/2025 10:45 AM EDT Office Visit Dermatology [facility] [address] [facility] [place] [address] Lokesh Mayen MD [address] [facility] [place] [address] Scheduled Procedures Name Priority Associated Diagnoses Date/Ti me COLONOSCOPY FLEXIBLE PROXIMAL DIAGNOSTIC Recall Colon cancer screening Health Maintenance Due Date Last Done Comments COVID-19 Vaccine (24 season) 2023 10/10/2023, 03/02/2023, 02/04/2022, Additional history exists Influenza Vaccine (FLU shot) (#1) 2024 06/26/2023, 06/09/2022, 06/17/2021, Additional history exists Diabetic Eye Exam 08/01/2024 08/01/2023, , 07/25/2005 Albumin/Creatinine Ratio 09/26/2024 09/26/2023, 07/27 HbA1c 10/16/2024 04/15/2024, 070 11/2023, 09/26/2023, Additional history exists GFR 10/27/2024 04/26/2024, 03/26, 04/10/2024, Additional history exists CKD PHOS USE SMARTSET 38200 03/27/2025 07/0 11/2023, 09/26/2023, 08/23/2022, Additional history exists Depression Screening 03/27/2025 03/27/2024 Diabetic Foot Exam 03/27/2025 03/27/2024, 02/21/2023 CKD HGB USE SMARTSET 25361 04/26/202504/26, 04/26/2024, 04/15/2024, Additional history exists DTaP,Tdap,and [...] this encounter Medical Devices Implanted Type Area Education And Development Manager Device Identifier Shelf Expiration Date Model / Serial / Lot Omegattice [id number] (400 Units) - [id number] Implanted:Qty : 400 on 10/25/2011 at [place] [facility] Abdomen LIFE CELL MISTY 12/23/2012 [id number] / / [id number] Mesh Prolit Hernia [id number] - [id number] Implanted:Qty : 1 on 08/14/2012 at [place] [facility] Left: Abdomen [employer] 12/24/2015 [id number] / / [id number] Suture Steel 6 B&S19 M654g - [id number] Implanted:Qty : 3 on 07/10/2020 by Ag Ballesteros MD at [place] [facility] N/A: Sternum JNJ : [employer] 02/22/2025 M654G / / [id number] Valve Heart Aortic Epic 23mm - [id number] - [id number] Implanted:Qty : 1 on 07/10/2020 by Ag Ballesteros MD at [place] [facility] N/A: Aorta ST DOMINIK : CARDIOVASCULAR [id number] 03/22/2024 [id number] / [id number] / [id number] documented as of this encounter Advance Directives [...] and were consensually agreed upon. Care Teams Information Assurance Engineer Relationship Specialty Start Date End Date Lokesh Amin MD [address] [place] [address] PCP - General Internal Medicine 07/22/21 documented as of this encounter"
--- OUTSIDE RECORDS SUMMARY | 2024-07-19 11:40 | External Medical Summary | Summary of Care ---
Author Name Unknown Organization [facility] Address [address] [place] [address] Phone [phone] Care Team Providers Care Client Care Specialist Name Role Phone Lokesh Amin MD Primary Care Provider + Reason for Visit * Reason Comments Follow Up Encounter Details Date Type Department Care Team (Late st Contact Info) Description 04/01/2024 3:00 PM EDT Office Visit MOH Surgery [facility] [address] [place] [address] Becky Gordon MD [address] [place] [address] Visit for wound check*; Status post reconstruction procedure Allergies Active Allergy Reactions Criticality Noted Date Comments Demerol Neuro complications (Please comment) High 06/14/2010 confusion Adhesive Tape Rash Low 06/14/2010 documented as of this encounter (statuses as of 04/14/2024) Medications Medication Sig Dispensed Refills Start Date [...] 09/05/2017 4 Discontinue d(Patient preference/ discontinua tion) Hospital, Clinic, or Other Facility Administered Medication Ordered Dose Route Frequency Start Date End Date Status Testosterone Cypionate (Depotestosterone Cypionate) 200 MG/ML inj 100 mgIndications:Hypogonadism, male 100 mg IM QMONTH 01/11/2021 Active documented as of this encounter (statuses as of 04/14/2024) Active Problems Problem Noted Date Diagnosed Date [...] as of this encounter (statuses as of 04/14/2024) Resolved Problems Problem Noted Date Diagnosed Date [...] as of this encounter (statuses as of 04/14/2024) Immunizations Name Administration Dates Next Due COVID-19 mRNA, LNP-s, No Pre serve, 2-Dose Series (EverythingMe) 06/29/2021,12/15/2020,11/24/2020 COVID-19, LNP-s, No Preserve , Deric-sucrose, Ages 12+ (Pfizer) 02/04/2022 COVID-19, MRNA-LNP, 23-24, P F, 30 MCG/0.3 mL, 12 YRS AND ABOVE, IM (Emissary-Comirnat) 10/10/2023 Covid-19, Mrna, Lnp-s, Pf, B ivalent, 30 Mcg, IM, 12 yrs and above (EverythingMe) 03/02/2023 Hepatitis B, 20+ yrs 04/01/2024,2023,09/29 Pneumococcal [...] Progress Notes * Becky Gordon MD - 04/04/2024 10:02 PM EDT SUBJECTIVE: HPI: Jhon Nelson is a 78 year old male seen for follow-up of 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 Wound is healing well thus far. EXAM Surgical wound on left ear and preauricular area healing well Small open area at left preauricular area/helical root PLAN -Continue vaseline with bandage until completely healed - Possible injury of left temporal nerve vs neuropraxia - will continue to monitor Follow-up:1 week The patient was encouraged to contact me with any further questions or concerns. Becky Gordon MD Associate, Mohs Micrographic Surgery & Dermatologic Surgery 04/01/2024 documented in this encounter Plan of Treatment Upcoming Encounters Date Type Department Care Team (Late st Contact Info) Description 04/26/2024 2:00 PM EDT Office Visit MOHS Surgery [facility] [address] [place] [address] Becky Gordon MD 200 [facility] [place] [address] 05/06/2024 2:00 PM EDT Nurse Only Ancillary [facility] [address] [facility] [place] [address] Nurse, Int Med [address] [facility] [place] [address] 05/06/2024 2:20 PM EDT Office Visit Pharmacy, [facility] [place] [address] [facility] [place] [address] Pharmacist1, [facility] 200 [facility] [place] [address] 10/14/2024 3:00 PM EST Office Visit Cardiology, [facility] [address] [place] [address] Fabian Mejia PA-C [address] [place] [address] 11/14/2024 2:00 PM EST Office Visit General Internal Medicine [facility] [address] [facility] [place] [address] Lokesh Amin MD 200 [facility] [place] [address] 03/18/2025 10:45 AM EDT Office Visit Dermatology [facility] [place] [address] [facility] [place], [place] [address] Lokesh Mayen MD 200 [facility] [place], [place] [address] Scheduled Procedures Name Priority Associated Diagnoses Date/Ti me COLONOSCOPY FLEXIBLE PROXIMAL DIAGNOSTIC Recall Colon cancer screening Health Maintenance Due Date Last Done Comments COVID-19 Vaccine ( season) 2023 10/10/2023, 03/02/2023, 02/04/2022, Additional history exists Influenza Vaccine (FLU shot) (#1) 2024 06/26/2023, 06/09/2022, 06/17/2021, Additional history exists Diabetic Eye Exam 08/01/2024 08/01/2023, , 07/25/2005 Albumin/Creatinine Ratio 09/26/2024 09/26/2023, 07/27 HbA1c 09/27/2024 03/27/2024, 10/2023, 02/28/2023, Additional history exists GFR 10/11/2024 04/10/2024, 03/25, 03/27/2024, Additional history exists CKD HGB USE SMARTSET 22215 10/27/202410/27, 10/27/2023, 09/26/2023, Additional history exists CKD PHOS USE SMARTSET 53196 03/27/2025 070 11/2023, 09/26/2023, 08/23/2022, Additional history exists Depression Screening 03/27/2025 03/27/2024 Diabetic Foot Exam 03/27/2025 03/27/2024, 02/21/2023 DTaP,Tdap,and Td Vaccines (3 - Td or [...] this encounter Medical Devices Implanted Type Area Top Closer Device Identifier Shelf Expiration Date Model / Serial / Lot Strattice [id number] (400 Units) - [id number] Implanted:Qty : 400 [place] 10[place]25/2011 [place] [facility] [place] LIFE CELL MISTY 12/23/2012 [id number] / / [id number] Mesh Prolit Hernia [id number] - [id number] Implanted:Qty : 1 on 08/14/2012 [place] [facility] [place] Left: Abdomen [employer] M[employer] 12/24/2015 [id number] / / [id number] Suture Steel 6 B&S19 M654g - [id number] Implanted:Qty : 3 on 07/10/2020 by Ag Ballesteros MD [place] [facility] [place]/A: Sternum JNJ : [employer] 02/22/2025 M654G / / [id number] Valve Heart Aortic Epic 23mm - [id number] - [id number] Implanted:Qty : 1 on 07/10/2020 by Ag Ballesteros MD [place] [facility] [place] N/A: Aorta ST DOMINIK : CARDIOVASCULAR [id number] 03/22/2024 [id number] 00 / [id number] / [id number] documented as of this encounter Visit Diagnoses [...] and were consensually agreed upon. Care Teams Client Care Specialist Relationship Specialty Start Date End Date Lokesh Amin MD [address] [place] [address] PCP - General Internal Medicine 07/22/21 documented as of this encounter
--- OUTSIDE RECORDS SUMMARY | 2024-07-19 11:40 | External Medical Summary ---
Author Name Unknown Address Unknown Organization K01:LABORATORY [facility] - [address] [place] [address] Laboratory Report Ordering Provider Test Date Status COREY JARAMILLO 04/15/2024 14:59:31 Final Observation Date Value Abnormality Reference (Units ) Status Vitamin B12 04/15/2024 14:59:31 [phone] (pg/mL) Final Performing Location [facility]ORY [facility] - [address] [place] [address]
--- OUTSIDE RECORDS SUMMARY | 2024-07-19 11:40 | External Medical Summary ---
Author Name Unknown Address Unknown Organization K0G:LAB[facility]ATORY [facility] - [address] [place] [address] Laboratory Report Ordering Provider Test Date Status COREY JARAMILLO 04/15/2024 14:59:31 Final Observation Date Value Abnormality Reference (Units ) Status SYNC LEUKOCYTES IN BLOOD BY AUTOMATED COUNT 04/15/2024 14:59:31 5.23 4.00-10.80 (K/uL) Final Segs 04/15/2024 14:59:31 61.7 40.0-75.0 (%) Final Lymphs % 04/15/2024 14:59:31 22.8 18.0-42.0 (%) Final Monos 04/15/2024 14:59:31 13.6 Above high normal 1.0-11.0 (%) Final Eosinophils 04/15/2024 14:59:31 1.5 0.0-6.0 (%) Final Basos 04/15/2024 14:59:31 0.4 0.0-2.0 (%) Final Absolute Segs 04/15/2024 14:59:31 3.23 1.80-7.70 (K/uL) Final Lymphs, absolute 04/15/2024 14:59:31 1.19 1.00-4.80 (K/ul) Final Monos, Abs 04/15/2024 14:59:31 0.71 0.00-1.10 (K/uL) Final Eos, Abs 04/15/2024 14:59:31 0.08 0.00-0.70 (K/uL) Final Basos, Abs 04/15/2024 14:59:31 0.02 0.00-0.20 (K/uL) Final Performing Location [facility] - [address] [place] [address]
--- OUTSIDE RECORDS SUMMARY | 2024-07-19 11:40 | External Medical Summary ---
Author Name Unknown Address Unknown Organization K0G:[facility]ATORY [place] - [address] [place] [address] Laboratory Report Ordering Provider Test Date Status COREY JARAMILLO 04/15/2024 14:59:31 Final Observation Date Value Abnormality Reference (Units ) Status BUN 04/15/2024 14:59:31 22 Above high normal 6-20 (mg/dL) Final Creatinine 04/15/2024 14:59:31 1.6 Above high normal 0.6-1.2 (mg/dL) Final Glomerular filtration rate/1.73 sq M.predicted [Volume Rate/Area] in Serum, Plasma or Blood by Creatinine-based formula (CKD-EPI) 04/15/2024 14:59:31 46 Below low normal >=60 (mL/min) Final eGFR is calculated based on the CKD-EPI 2020 equation. Sodium 04/15/2024 14:59:31 138 135-146 (m mol/L) Final Potassium 04/15/2024 14:59:31 4.3 3.5-5.1 (m mol/L) Final Cl 04/15/2024 14:59:31 100 98-107 (mm ol/L) Final CO2 04/15/2024 14:59:31 26 22-32 (mmo l/L) Final Anion gap 04/15/2024 14:59:31 12 7-15 (mmol /L) Final Glucose 04/15/2024 14:59:31 89 70-120 (mg /dL) Final Albumin 04/15/2024 14:59:31 4.1 3.8-5.0 (g /dL) Final AST (Aspartate aminotransferase) 04/15/2024 14:59:31 31 10-50 (U/L) Final Alk Phos 04/15/2024 14:59:31 74 35-130 (U/ L) Final Bilirubin, Total 04/15/2024 14:59:31 0.8 <=1 .2 (mg/dL) Final Calcium 04/15/2024 14:59:31 9.3 8.4-10.2 ( mg/dL) Final Protein 04/15/2024 14:59:31 6.4 6.0-8.3 (g /dL) Final ALT (Alanine aminotransferase) 04/15/2024 14:59:31 37 10-50 (U/L) Final Performing Location LABORATORY [facility] 0 - [address] [place] [address]
--- OUTSIDE RECORDS SUMMARY | 2024-07-19 11:40 | External Medical Summary | Summary of Care ---
Author Name Unknown Organization [facility] Address [address] [place] [address] Phone [phone] Care Team Providers Care Formulator Compounder Name Role Phone Lokesh Amin MD Primary Care Provider + Reason for Visit * Reason Onset Date Comments Test Results 04/04/2024 Encounter Details Date Type Department Care Team (Late st Contact Info) Description 04/04/2024 Telephone General Internal Medicine [facility] 200 [facility] [place] [address] Lokesh Amin MD 200 [place] [address] Test Results Allergies Active Allergy Reactions Criticality [...] Silver 50+Men Oral Tablet Take by mouth. [facility] Hospital, Clinic, or Other Facility Administered Medication [...] mRNA, LNP-s, No Pre serve, 2-Dose Series (Songwhale) 06/29/2021,12/15/2020,11/24/2020 COVID-19, LNP-s, No Preserve , Deric-sucrose, [...] Telephone Encounter - Lokesh Amin MD - 04/04/2024 8:49 AM EDT See myg * Telephone Encounter - Radhika Staley MED ASSIST - 04/04/2024 8:38 AM EDT Patient aware and verbalized understanding Pt states he does not have the insulin/glucometer he was told he needed from last visit. He sent a myg yesterday which I will route as well Pharmacy pended * Telephone Encounter - Radhika Staley MED ASSIST - 04/04/2024 8:36 AM EDT ----- Message from Lokesh Amin MD sent at 04/04/2024 8:27 AM EDT ----- Sugar still very high, please keep today's [facility] visit for further evaul, treatment. Repeat bmp 1 week. I will await their guidance on medicine, treatment documented in this encounter Plan of Treatment Upcoming Encounters Date Type Department Care Team (Late st Contact Info) Description 04/26/2024 2:00 PM EDT Office Visit MOHS Surgery [facility] [address] [facility] [address] Becky Gordon MD 200 [facility] [place] [address] 05/06/2024 2:00 PM EDT Nurse Only Ancillary [facility] 200 [facility] [place] [address] Nurse, Int Med 200 [facility] [place] [address] 05/06/2024 2:20 PM EDT Office Visit Pharmacy, [facility] 200 [facility] [place] [address] Pharmacist1, [facility] 200 [facility] [place] [address] 10/14/2024 3:00 PM EST Office Visit Cardiology, [facility] [address] [place] [address] Fabian Mejia PA-C [address] [place] [address] 11/14/2024 2:00 PM EST Office Visit General Internal Medicine [facility] [address] [facility] [place] [address] Lokesh Amin MD 200 [facility] [place] [address] 03/18/2025 10:45 AM EDT Office Visit Dermatology [facility] 200 [facility] [place] [address] Lokesh Mayen MD 200 [facility] [place] [address] Scheduled Procedures Name Priority Associated Diagnoses Date/Ti [...] 04/03/2024, Additional history exists HbA1c 10/16/2024 04/15/2024, 07/0 11/2023, 09/26/2023, Additional history exists CKD PHOS USE SMARTSET 13100 03/27/2025 07/0 11/2023, 09/26/2023, 08/23/2022, Additional history exists Depression Screening 03/27/2025 03/27/2024 Diabetic Foot Exam 03/27/2025 03/27/2024, 02/21/2023 CKD HGB USE SMARTSET 59013 04/15/202504/15, 04/15/2024, 10/27/2023, Additional history exists DTaP,Tdap,and [...] encounter Medical Devices Implanted Type Area Vice President Corporate Communications Device Identifier Shelf Expiration Date Model / Serial / Lot Strattice [id number] (400 Units) - [id number] Implanted:Qty : 400 on 10/25/2011 at [place] [facility] [place] Abdomen LIFE CELL MISTY 12/23/2012 [id number] / / [id number] Mesh Prolit Hernia [id number] - [id number] Implanted:Qty : 1 on 08/14/2012 at [place] [facility] [place] Left: Abdomen [employer] M[employer] 12/24/2015 [id number] / / [id number] Suture Steel 6 B&S19 M654g - [id number] Implanted:Qty : 3 on 07/10/2020 by Ag Ballesteros MD at [place] [facility] [place] N/A: Sternum JNJ : [employer] 02/22/2025 M654G / / [id number] Valve Heart Aortic Epic 23mm - [id number] - [id number] Implanted:Qty : 1 on 07/10/2020 by Ag Ballesteros MD at OR [facility] [place] N/A: Aorta ST DOMINIK : CARDIOVASCULAR [id number] 03/22/2024 [id number] 00 / [id number] / [id number] documented as of this encounter Advance Directives [...] and were consensually agreed upon. Care Teams Formulator Compounder Relationship Specialty Start Date End Date Lokesh Amin MD 200 [facility] [place] [address] PCP - General Internal Medicine 07/22/21 documented as of this encounter
--- OUTSIDE RECORDS SUMMARY | 2024-07-19 11:40 | External Medical Summary ---
Author Name Unknown Address Unknown Organization K0G:LABORATORY [facility] - [address] [place] [address] Laboratory Report Ordering Provider Test Date Status COREY JARAMILLO 04/15/2024 14:59:31 Final Observation Date Value Abnormality Reference (Units ) Status WBC, Total 04/15/2024 14:59:31 5.23 4.00-10.8 0 (K/uL) Final RBC 04/15/2024 14:59:31 4.21 4.50-5.25 (M/uL) Final Hemoglobin 04/15/2024 14:59:31 13.5 Below low normal 14 .0-16.8 (g/dL) Final HCT 04/15/2024 14:59:31 39.7 Below low normal 40. 0-48.4 (%) Final MCV 04/15/2024 14:59:31 94.3 82.0-99.5 (fL) Final MCH 04/15/2024 14:59:31 32.1 27.0-34.0 (pg) Final MCHC 04/15/2024 14:59:31 34.0 32.0-36.0 (g/dL) Final RDW 04/15/2024 14:59:31 13.9 11.5-15.5 (%) Final Platelets 04/15/2024 14:59:31 164 140-400 (K /uL) Final MPV 04/15/2024 14:59:31 10.7 6.6-11.1 ( fL) Final Performing Location LABORATORY [facility] [address] 0 - [address] [place] [address]
--- OUTSIDE RECORDS SUMMARY | 2024-07-19 11:40 | External Medical Summary | Summary of Care ---
Author Name Unknown Organization [facility] Address [address] [place] [address] Phone [phone] Care Team Providers Care Chief Clerk Name Role Phone Lokesh Amin MD Primary Care Provider + Reason for Visit * Reason Comments Re-Check Pt presents today fo r recheck on L ear. Pt has no complaints Encounter Details Date Type Department Care Team (Late st Contact Info) Description 04/09/2024 2:45 PM EDT Office Visit [facility] Surgery [facility] [address] [place] [address] Becky Gordon MD [address] [place] [address] Visit for wound check*; Status post reconstruction [...] after meals 100 Strip 1 04/04/2024 Active Q.branchTouch UltraSoft LancetsIndications: Type 2 diabetes mellitus with hemoglobin A1c goal of less than 8.0% (HCC) Use up to check sugar first thing in am and 2 hours after meals 100 Each 1 04/04/2024 Active Insulin Glargine Solostar 100 UNIT/ML Subcutaneous Solution Pen-injector (Lantus SoloStar)Indication s:Type 2 diabetes mellitus with hemoglobin A1c goal of less than 8.0% ([facility]) Inject 10 Units under the skin daily. 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 Wound is healing well thus far. EXAM Surgical wound on left ear and preauricular area healing well Depression/inability to lift left brow PLAN -Continue vaseline with bandage until completely healed - Possible injury of left temporal nerve vs neuropraxia - will continue to monitor Follow-up: 2 weeks The patient was encouraged to contact me with any further questions or concerns. Becky Gordon MD Associate, Mohs Micrographic Surgery & Dermatologic Surgery 04/09/2024 documented in this encounter Nursing Notes * Sarahi Hernandez LPN - 04/09/2024 2:52 PM EDT Chief Complaint Patient presents with Re-Check Pt presents today for recheck on L ear. Pt has no complaints documented in this encounter Plan of Treatment Upcoming Encounters Date Type Department Care Team (Late st Contact Info) Description 04/26/2024 2:00 PM EDT Office Visit MOHS Surgery [facility] [place] [address] [place] [address] Becky Gordon MD 200 [facility] [place] [address] 05/06/2024 2:00 PM EDT Nurse Only Ancillary [facility] 200 [place] [address] Nurse, Int Med [address] [facility] [place] [address] 05/06/2024 2:20 PM EDT Office Visit Pharmacy, [facility] [address] [facility] [place] [address] Pharmacist1, [facility] [address] [facility] [place] [address] 10/14/2024 3:00 PM EST Office Visit Cardiology, [facility] [address] [facility] [place] [address] Fabian Mejia PA-C [address] [place] [address] 11/14/2024 2:00 PM EST Office Visit General Internal Medicine [facility] [address] [facility] [place] [address] Lokesh Amin MD 200 [facility] [place] [address] 03/18/2025 10:45 AM EDT Office Visit Dermatology [facility] [place] [address] [place] [address] Lokesh Mayen MD 200 [place] [address] Scheduled Procedures Name Priority Associated Diagnoses Date/Ti [...] Additional history exists CKD HGB USE SMARTSET 78151 10/27/202410/27, 10/27/2023, 09/26/2023, Additional history exists CKD PHOS USE SMARTSET 39687 03/27/2025 07/0 11/2023, 09/26/2023, 08/23/2022, Additional history [...] encounter Medical Devices Implanted Type Area Metal Leaf Layer Device Identifier Shelf Expiration Date Model / Serial / Lot Strattice [id number] (400 Units) - [id number] Implanted:Qty : 400 on 10/25/2011 at [place] [facility] [place] Abdomen LIFE CELL MISTY 12/23/2012 / / [id number] Mesh Prolit Hernia [id number] - [id number] Implanted:Qty : 1 on 08/14/2012 at OR [facility] [place] Left: Abdomen [employer] M[employer] 12/24/2015 [id number] / / [id number] Suture Steel 6 B&S19 M654g - [id number] Implanted:Qty : 3 on 07/10/2020 by Ag Ballesteros MD at OR [facility] [place] N/A: Sternum JNJ : [employer] 02/22/2025 M654G / / [id number] Valve Heart Aortic Epic 23mm - [id number] - [id number] Implanted:Qty : 1 on 07/10/2020 by Ag Ballesteros MD at OR [facility] [place] N/A: Aorta ST DOMINIK : CARDIOVASCULAR [id number] 03/22/2024 [id number] 00 / [id number] / [id number] documented as of this encounter Visit Diagnoses [...] and were consensually agreed upon. Care Teams Chief Clerk Relationship Specialty Start Date End Date Lokesh Amin MD 200 [place] [address] PCP - General Internal Medicine 07/22/21 documented as of this encounter
--- OUTSIDE RECORDS SUMMARY | 2024-07-19 11:40 | External Medical Summary ---
Author Name Unknown Address Unknown Organization K01:LAB[facility]ATORY [facility] [place] - [address] [facility] [address] Laboratory Report Ordering Provider Test Date Status COREY JARAMILLO 04/15/2024 14:59:31 Final Observation Date Value Abnormality Reference (Units ) Status HbA1C 04/15/2024 14:59:31 11.7 Above high normal 4. 0-5.6 (%) Final The use of HbA1c to monitor glycemic status is based on normal hemoglobin and HbA composition. This test should not be used in patients with abnormal hemoglobin that affects the half life of the red blood cell or the in vivo glycation rates. Glucose, estimated average 04/15/2024 14:59:31 289 Above high normal <126 (mg/dL) Herbert alvaerz Performing Location [facility] [place] - [address] [facility] [address]
--- OUTSIDE RECORDS SUMMARY | 2024-07-19 11:40 | External Medical Summary ---
Author Name Unknown Address Unknown Organization K01:[facility] [place] [address] [facility] [place] [address] Laboratory Report Ordering Provider Test Date Status COREY JARAMILLO 04/15/2024 14:59:31 Final Observation Date Value Abnormality Reference (Units ) Status Triglyceride 04/15/2024 14:59:31 140 <=174 ( mg/dL) Final Triglyceride Reference Range s (mg/dL):
<150 Acceptable
150-174 Borderline high
175-499 High
>=500 Very high Cholesterol 04/15/2024 14:59:31 74 <200 (mg /dL) Final Total Cholesterol Reference Ranges (mg/dL):
<200 Desirable
200-239 Borderline high
>=240 High HDL 04/15/2024 14:59:31 33 Below low normal >39 (mg/dL) Final HDL Cholesterol Reference Ra nges (mg/dL):
>=60 High (Desirable)
<50 Low (Undesirable) For Females
<40 Low (Undesirable) For Males NON-HDL CHOLESTEROL 04/15/2024 14:59:31 41 <=159 (mg/dL) Final Non-HDL Cholesterol Referenc e Range (mg/dL):
<100 Target level for high risk ASCVD patient
<130 Optimal for general population
130-159 Near optimal for general population
160-189 Borderline High
190-219 High
>=220 Very High LDL, (calculated) 04/15/2024 14:59:31 13 <= 129 (mg/dL) Final LDL Cholesterol Reference Ra nges (mg/dL):
<70 Target level for high risk ASCVD patient
<100 Optimal for general population
100-129 Near optimal for general population
130-159 Borderline high
160-189 High
>=190 Very high Performing Location [facility] [place] [address] [facility] [address]
--- OUTSIDE RECORDS SUMMARY | 2024-07-19 11:40 | External Medical Summary | Summary of Care ---
Author Name Unknown Organization [facility] Address [address] [place] [address] Phone [phone] Care Team Providers Care Meat Stringer Name Role Phone Lokesh Amin MD Primary Care Provider + Reason for Visit * Reason Comments Diabetes Follow-Up Dosage Adjustment Via Phone (anticoag Cl inic) Encounter Details Date Type Department Care Team (Late st Contact Info) Description 04/11/2024 1:00 PM EDT Telemedicine Pharmacy, [facility] 200 [facility] [place] [address] Pharmacist1, [facility] 200 [facility] [place] [address] Type 2 diabetes mellitus with hemoglobin A1c goal of less than 8.0% ([facility])* Allergies Active Allergy Reactions Criticality Noted Date Comments Demerol Neuro complications (Please comment) High 06/14/2010 confusion Adhesive Tape Rash Low 06/14/2010 documented as of this encounter (statuses as of 04/11/2024) Medications Medication Sig Dispensed Refills Start Date [...] after meals 100 Strip 1 04/04/2024 Active FARR TechnologiesTouch UltraSoft LancetsIndications: Type 2 diabetes mellitus with [...] as of this encounter (statuses as of 04/11/2024) Active Problems Problem Noted Date Diagnosed Date [...] as of this encounter (statuses as of 04/11/2024) Resolved Problems Problem Noted Date Diagnosed Date [...] as of this encounter (statuses as of 04/11/2024) Immunizations Name Administration Dates Next Due COVID-19 mRNA, LNP-s, No Pre serve, 2-Dose Series ([employer]) 06/29/2021,12/15/2020,11/24/2020 COVID-19, LNP-s, No Preserve , Deric-sucrose, Ages 12+ ([employer]) 02/04/2022 COVID-19, MRNA-LNP, 23-24, P F, 30 MCG/0.3 mL, 12 YRS AND ABOVE, IM ([employer]-Comirnat) 10/10/2023 Covid-19, Mrna, Lnp-s, Pf, B ivalent, 30 Mcg, IM, 12 yrs and above ([employer]) 03/02/2023 Hepatitis B, 20+ yrs 04/01/2024,2023,09/29 Pneumococcal [...] as of this encounter Progress Notes * Olga Powell Jamal, [facility] - 04/11/2024 12:41 PM EDT Medication Therapy Disease Management Clinic - Diabetes Management Progress Note Patient Phone Numbers After connecting to the patient via telephone, the patient was identified by name and date of . Patient was then informed that this was a telephone call only visit. The patient agreed to participate. Visit Disposition: Routine follow-up Total call duration was 10 minutes. DIABETES: Current diabetic medications: START: Metformin ER 500mg 1 tablet twice daily for 1 week then increase to 2 tablets twice daily START: Lantus 10 units daily (titrating dose in one week) Medication Injection Site: Abdomen Lifestyle: Diet: improved History of Treatment Barriers: Lifestyle: None Therapy considerations: Renal Function, Heart Failure - consider using SGLT-2, and History of Medullary Thyroid Cancer - GLP-1 contraindicated Medication: None Glucose Review/SMBG: Readings obtained from patient documented BG logbook Pre am Pre Lunch Pre pm HS 369 436 495 319 151 229 160 228 122 171 163 140 99 Pre am Pre Lunch Pre pm HS Average 229 279 185 273 Hi 319 436 369 495 Lo 140 171 99 160 Range 179 265 270 335 Hypoglycemia: Does your blood sugar go below 70 mg/dL? No Hyperglycemia symptoms present: polyurea, polydipsia Recent Labs Units 03/27/24 1234 09/26/23 1425 02/28/23 1016 HEMOGLOBIN A1C - [facility] % 12.4* 6.7* 6.7* Recent Labs Units 04/10/24 1516 04/03/24 1447 03/27/24 1234 ESTIMATED GLOMERULAR FILTRATION RATE - [facility] mL/min 40* 64 55* CREATININE - [facility] mg/dL 1.7* 1.2 1.3* Lab Results Component Value Date/Time CREATININE - [facility] 1.7 (H) 04/10/2024 03:16 PM CREATININE - [facility] 1.2 04/03/2024 02:47 PM CREATININE - [facility] 1.3 (H) 03/27/2024 12:34 PM CREATININE - [facility] 1.3 (H) 10/13/2020 [...] daily BP Readings from Last 3 Encounters: 04/08/24 126/76 03/27/24 122/70 09/26/23 116/74 Blood pressure at goal: yes HYPERLIPIDEMIA: Patient is taking moderate or high intensity statin: yes. Atorvastatin 10mg daily HEALTH MAINTENANCE REVIEW: Health Maintenance Due Topic Date Due COVID-19 Vaccine ( season) 2023 ASSESSMENT & PLAN: ICD-10-CM 1. Type 2 diabetes mellitus with hemoglobin A1c goal of less than 8.0% (HCC) E11.9 BG Readings - Blood sugars improved since starting Metformin and Lantus. Medications - Reviewed current regimen, patient is adherent to regimen. He is having some loose stools from Metformin so he will not increase, but remain at 1 tablet twice daily. Keeping Lantus at 10units daily. Diet, Exercise, Lifestyle - improved diet . Discussed with patient today. Patient is agreeable to SMBG 2 time(s) daily. Patient aware to contact clinic if any hypoglycemia before next visit. MEDICATION CHANGES: no change Diabetic Medications: Metformin ER 500mg 1 tablet twice daily Lantus 10 units daily HEALTH MAINTENANCE INTERVENTIONS: Labs: Up to Date Immunizations: Up to Date Foot Exam: Up to Date Eye Exam: Up to Date Annual Wellness Visit: Up to Date FOLLOW UP: Return to clinic in 4 weeks 05/06/2024 Jamal Espinoza RPh, CACP, CDE Clinical Pharmacist Medication Therapy Management Clinic 04/11/2024 12:42 PM documented in this encounter Plan of Treatment Upcoming Encounters Date Type Department Care Team (Late st Contact Info) Description 04/26/2024 2:00 PM EDT Office Visit MOHS Surgery [facility] [address] [facility] [place] [address] Becky Gordon MD [address] [facility] [place] [address] 05/06/2024 2:00 PM EDT Nurse Only Ancillary [facility] [place] [address] [place] [address] Nurse, Int Med [address] [place] [address] [address] 05/06/2024 2:20 PM EDT Office Visit Pharmacy, [facility] [place] [address] [place] [address] [address] Pharmacist1, [facility] Sp [address] [place] [address] 10/14/2024 3:00 PM EST Office Visit Cardiology, [facility] [address] [facility] [place] [address] Fabian Mejia PA-C [address] [place] [address] 11/14/2024 2:00 PM EST Office Visit General Internal Medicine [facility] [place] [address] [facility] [place] [address] Lokesh Amin MD 200 [facility] [place] [address] 03/18/2025 10:45 AM EDT Office Visit Dermatology [facility] [address] [facility] [place] [address] Lokesh Mayen MD [address] [facility] [address] [place] [address] Scheduled Procedures Name Priority Associated Diagnoses Date/Ti [...] Additional history exists CKD HGB USE SMARTSET 47320 10/27/202410/27, 10/27/2023, 09/26/2023, Additional history exists CKD PHOS USE SMARTSET 25453 03/27/2025 07/0 11/2023, 09/26/2023, 08/23/2022, Additional history [...] this encounter Medical Devices Implanted Type Area Underground Utility Locator Device Identifier Shelf Expiration Date Model / Serial / Lot Strattice [id number] (400 Units) - [id number] [place]planted:Q[place] : 400 [place] [facility] [place] LIFE CELL MISTY 12/23/2012 [id number] / / [id number] Mesh Prolit Hernia [id number] - [id number] Implanted:Qty : 1 on 08/14/2012 [place] [facility] [place]: Abdomen [employer] MISTY 12/24/2015 [id number] / / [id number] Suture Steel 6 B&S19 M654g - [id number] Implanted:Qty : 3 on 07/10/2020 by Ag Ballesteros [place] [facility] [place]/A: Sternum JNJ : [employer] 02/22/2025 M654G / / [id number] Valve Heart Aortic Epic 23mm - [id number] - [id number] Implanted:Qty : 1 on 07/10/2020 by Ag Ballesteros MD [place] [facility] [place] N/A: Aorta ST DOMINIK : CARDIOVASCULAR [id number] 03/22/2024 [id number] / [id number] / [id number] documented as of this encounter Visit Diagnoses Diagnosis Type 2 diabetes mellitus with hemoglobin A1c goal of less than 8.0% (HCC)- Primary documented in this encounter Advance Directives [...] and were consensually agreed upon. Care Teams Meat Stringer Relationship Specialty Start Date End Date Lokesh Amin MD 200 [facility] [place], [place] [address] PCP - General Internal Medicine 07/22/21 documented as of this encounter
--- OUTSIDE RECORDS SUMMARY | 2024-07-19 11:40 | External Medical Summary ---
Author Name Unknown Address Unknown Organization K01:[facility] [address] [place] [address] Laboratory Report Ordering Provider Test Date Status COREY JARAMILLO 04/15/2024 14:59:31 Final Observation Date Value Abnormality Reference (Units ) Status PSA 04/15/2024 14:59:31 0.95 <4.10 (ng/ mL) Final Performing Location [facility] [address] [place] [address]
--- OUTSIDE RECORDS SUMMARY | 2024-07-19 11:40 | External Medical Summary ---
Author Name Unknown Address Unknown Organization K01[facility] [place] [address] [place] [address] Laboratory Report Ordering Provider Test Date Status COREY JARAMILLO 04/15/2024 14:59:31 Final Observation Date Value Abnormality Reference (Units ) Status Magnesium 04/15/2024 14:59:31 1.2 Below low normal 1.5 -2.6 (mg/dL) Final Performing Location [facility] - [address] [place] [address]
--- OUTSIDE RECORDS SUMMARY | 2024-07-19 11:40 | External Medical Summary | Summary of Care ---
Author Name Unknown Organization [facility] Address [address] [place] [address] Phone [phone] Care Team Providers Care Bundler Name Role Phone Lokesh Amin MD Primary Care Provider + Reason for Visit * Reason Onset Date Comments Test Results 04/11/2024 Encounter Details Date Type Department Care Team (Late st Contact Info) Description 04/11/2024 Telephone General Internal Medicine [facility] 200 [place] [address] Lokesh Amin MD 200 [place] [address] Test Results Allergies Active Allergy Reactions Criticality [...] mRNA, LNP-s, No Pre serve, 2-Dose Series ([facility] [employer]) 06/29/2021,12/15/2020,11/24/2020 COVID-19, LNP-s, No Preserve , Deric-sucrose, Ages 12+ (Pfizer) 02/04/2022 COVID-19, MRNA-LNP, 23-24, P F, 30 MCG/0.3 mL, 12 YRS AND ABOVE, IM ([employer]-Comirnat) 10/10/2023 Covid-19, Mrna, Lnp-s, Pf, B ivalent, [...] encounter Miscellaneous Notes * Telephone Encounter - Radhika Staley MED ASSIST - 04/11/2024 11:08 AM EDT Myg sent * Telephone Encounter - Radhika Staley MED ASSIST - 04/11/2024 11:07 AM EDT ----- Message from Lokesh Amin MD sent at 04/11/2024 8:16 AM EDT ----- Gfr worse, how much water is he taking? Recheck labs Monday to follow. sugar is MUCH better, good work Sodium low, but stable documented in this encounter Plan of Treatment Upcoming Encounters Date Type Department Care Team (Late st Contact Info) Description 04/11/2024 1:00 PM EDT Telemedicine Pharmacy, [facility] 200 [facility] [place] [address] Pharmacist1, [facility] 200 [facility] [place] [address] 04/26/2024 2:00 PM EDT Office Visit MOHS Surgery [facility] [address] [place] [address] Becky Oviedo MD 200 [facility] [place] [address] 05/06/2024 2:00 PM EDT Nurse Only Ancillary [facility] [place] [address] [facility] [place] [address] Nurse, Int Med 200 [facility] [place] [address] 10/14/2024 3:00 PM EST Office Visit Cardiology, [facility] [address] [place] [address] Fabian Mejia PA-Gregory [address] [place] [address] 11/14/2024 2:00 PM EST Office Visit General Internal Medicine [facility] 200 [facility] [place] [address] Lokesh Amin MD 200 [facility] [place] [address] 03/18/2025 10:45 AM EDT Office Visit Dermatology [facility] 200 [facility] [place] [address] Lokesh Mayen MD 200 [facility] [place] [address] Scheduled Procedures Name Priority Associated Diagnoses Date/Ti [...] Additional history exists CKD HGB USE SMARTSET 32245 10/27/202410/27, 10/27/2023, 09/26/2023, Additional history exists CKD PHOS USE SMARTSET 71679 03/27/2025 0711/2023, 09/26/2023, 08/23/2022, Additional history exists [...] this encounter Medical Devices Implanted Type Area Community Health Promoter Device Identifier Shelf Expiration Date Model / Serial / Lot Strattice [id number] (400 Units) - [id number] Implanted:Qty : 400 on 10/25/2011 [place] [facility] [place] Abdomen LIFE CELL MISTY 12/23/2012 [id number] / / [id number] Mesh Prolit Hernia [id number] - [id number] Implanted:Qty : 1 on 08/14/2012 at [place] [facility] [place] Left: Abdomen [employer] MISTY 12/24/2015 [id number] / / [id number] Suture Steel 6 B&S19 M654g - [id number] Implanted:Qty : 3 on 07/10/2020 by Ag Ballesteros MD at [place] [facility] [place] N/A: Sternum JNJ : [employer] 02/22/2025 M654G / / [id number] Valve Heart Aortic Epic 23mm - [id number] - [id number] Implanted:Qty : 1 on 07/10/2020 by Ag Ballesteros MD at [place] [facility] N/A: Aorta ST DOMINIK : CARDIOVASCULAR [id number] 03/22/2024 [id number] / [id number] / [id number] documented as of this encounter Advance Directives [...] and were consensually agreed upon. Care Teams Bundler Relationship Specialty Start Date End Date Lokesh Amin MD 200 [facility] [place], [place] [address] PCP - General Internal Medicine 07/22/21 documented as of this encounter
--- OUTSIDE RECORDS SUMMARY | 2024-07-19 11:40 | External Medical Summary | Summary of Care ---
Author Name Unknown Organization [facility] Address [address] [place] [address] Phone [phone] Care Team Providers Care Electrotype Finisher Name Role Phone Lokesh Amin MD Primary Care Provider + Reason for Visit * Reason Comments Outpatient Testing Encounter Details Date Type Department Care Team (Late st Contact Info) Description 04/15/2024 3:30 PM EDT Laboratory Laboratory, [facility] [address] [place] [address] [facility] [address] [place] [address] HTN, goal below 140/90; Hypogonadism, male; Nocturia; Encounter for long-term (current) use of medications; Type 2 diabetes mellitus with hemoglobin A1c goal of less than 8.0% ([facility]); Decreased GFR Allergies Active Allergy Reactions Criticality Noted Date Comments Demerol Neuro complications (Please comment) High 06/14/2010 confusion Adhesive Tape Rash Low 06/14/2010 documented as of this encounter (statuses as of 04/15/2024) Medications Medication Sig Dispensed Refills Start Date [...] as of this encounter (statuses as of 04/15/2024) Active Problems Problem Noted Date Diagnosed Date [...] as of this encounter (statuses as of 04/15/2024) Resolved Problems Problem Noted Date Diagnosed Date [...] as of this encounter (statuses as of 04/15/2024) Immunizations Name Administration Dates Next Due COVID-19 mRNA, LNP-s, No Pre serve, 2-Dose Series ([employer]) 06/29/2021,12/15/2020,11/24/2020 COVID-19, LNP-s, No Preserve , Deric-sucrose, Ages 12+ (Pfizer) 02/04/2022 COVID-19, MRNA-LNP, 23-24, P F, 30 MCG/0.3 mL, 12 YRS AND ABOVE, IM ([facility]) 10/10/2023 Covid-19, Mrna, Lnp-s, Pf, B ivalent, 30 Mcg, IM, 12 yrs and above ([employer]) 03/02/2023 Hepatitis B, 20+ yrs 04/01/2024,2023,09/29 Pneumococcal [...] 2:00 PM EDT Office Visit MOHS Surgery [facility] [place] [address] [facility] [place] [address] Becky Gordon MD [address] [place] [address] 05/06/2024 2:00 PM EDT Nurse Only Ancillary [facility] [place] [address] [place] [address] Nurse, Int Med [address] [facility] [place] [address] 05/06/2024 2:20 PM EDT Office Visit Pharmacy, [facility] [place] [address] [place] [address] Pharmacist1, [facility] [address] [facility] [place] [address] 10/14/2024 3:00 PM EST Office Visit Cardiology, [facility] 132 [facility] [place] [address] Fabian Mejia PA-C [address] [place] [address] 11/14/2024 2:00 PM EST Office Visit General Internal Medicine [facility] 200 [facility] [place] [address] Lokesh Amin MD 200 [facility] [place] [address] 03/18/2025 10:45 AM EDT Office Visit Dermatology [facility] 200 [facility] [place] [address] Lokesh Mayen MD 200 [facility] [place] [address] Pending Results Name Type Priority Associated Diagnoses Date /Time COMPREHENSIVE METABOLIC PANEL Lab STAT HTN, goal below 140/90 04/15/2024 2:59 PM EDT LIPID PANEL WITH DIRECT LDL IF TG IS HIGH Lab Routine HTN, goal below 140/90 04/15/2024 2:59 PM EDT PSA Lab Routine Hypogonadism, male Nocturia 04/15/2024 2:59 PM EDT VITAMIN B12 Lab Routine Encounter for long-term (current) use of medications 04/15/2024 2:59 PM EDT MAGNESIUM Lab Routine Encounter for long-term (current) use of medications 04/15/2024 2:59 PM EDT HEMOGLOBIN A1C Lab Routine Type 2 diabetes mellitus with hemoglobin A1c goal of less than 8.0% ([facility]) 04/15/2024 2:59 PM EDT Scheduled Procedures Name Priority Associated [...] 04/10/2024, 03/25, 03/27/2024, Additional history exists CKD PHOS USE SMARTSET 69598 03/27/2025 0711/2023, 09/26/2023, 08/23/2022, Additional history exists Depression Screening 03/27/2025 03/27/2024 Diabetic Foot Exam 03/27/2025 03/27/2024, 02/21/2023 CKD HGB USE SMARTSET 16236 04/15/202504/15, 04/15/2024, 10/27/2023, Additional history exists DTaP,Tdap,and [...] this encounter Medical Devices Implanted Type Area Slot Host Device Identifier Shelf Expiration Date Model / Serial / Lot Strattice [id number] (400 Units) - [id number] Implanted:Qty : 400 on 10/25/2011 at [place] [facility] [place] Abdomen LIFE CELL MISTY 12/23/[id number] / / [id number] Mesh Prolit Hernia [id number] - [id number] Implanted:Qty : 1 on 08/14/2012 at [place] [facility] [place] Left: Abdomen A[employer] MISTY 12/24/2015 [id number] / / [id number] Suture Steel 6 B&S19 M654g - [id number] Implanted:Qty : 3 on 07/10/2020 by Ag Ballesteros MD at [place] [facility] [place] N/A: Sternum JNJ : [employer] 02/22/2025 M654G / / [id number] Valve Heart Aortic Epic 23mm - [id number] - [id number] Implanted:Qty : 1 on 07/10/2020 by Ag Ballesteros MD at [place] [facility] [place] N/A: Aorta ST DOMINIK : CARDIOVASCULAR [id number] 03/22/2024 [id number] / [id number] / [id number] documented as of this encounter Procedures Procedure Name Priority Date/Time Associated Diagnosis Comments DIFFERENTIAL, AUTOMATED Routine 04/15/2024 2:59 PM EDT Hypogonadism, male CBC Routine 04/15/2024 2:59 PM EDT Hypogonadism, male CBC Routine 04/15/2024 2:59 PM EDT Hypogonadism, male documented in this encounter Results * (ABNORMAL) DIFFERENTIAL, AUTOMATED (04/15/2024 2:59 PM EDT) WBC 5.23 4.00 - 10.80 K/uL 04/15/2024 3:08 PM EDT [facility] [place] [facility]10 Neutrophils % 61.7 40.0 - 75.0 % 04/15/2024 3:08 PM EDT [facility] [place] 57[facility]10 Lymphocytes % 22.8 18.0 - 42.0 % 04/15/2024 3:08 PM EDT [facility] [place] 57[facility]10 Monocytes % 13.6(H) 1.0 - 11.0 % 04/15/2024 3:08 PM EDT [facility] [place] 57[facility]10 Eosinophils % 1.5 0.0 - 6.0 % 04/15/2024 3:08 PM EDT [facility] [place] 57[facility]10 Basophils % 0.4 0.0 - 2.0 % 04/15/2024 3:08 PM EDT [facility] [place] [facility]10 Absolute Neutrophils 3.23 1.80 - 7.70 K/uL 04/15/2024 3:08 PM EDT [facility] [place] [facility]10 Absolute Lymphocytes 1.19 1.00 - 4.80 K/ul 04/15/2024 3:08 PM EDT [facility] [place] [facility]10 Absolute Monocytes 0.71 0.00 - 1.10 K/uL 04/15/2024 3:08 PM EDT [facility] [place] [facility]10 Absolute Eosinophils 0.08 0.00 - 0.70 K/uL 04/15/2024 3:08 PM EDT [facility] [place] [facility]10 Absolute Basophils 0.02 0.00 - 0.20 K/uL 04/15/2024 3:08 PM EDT [facility] Blood Venous blood specimen / Unknown Venipuncture / Unknown 04/15/2024 2:59 PM EDT 04/15/2024 2:59 PM EDT Lokesh Amin MD LAB BLOOD [facility] [place] [facility]10 [address] [place] [address] * (ABNORMAL) CBC (04/15/2024 2:59 PM EDT) WBC 5.23 4.00 - 10.80 K/uL 04/15/2024 3:08 PM EDT [facility] [place] 57[facility]10 RBC 4.21 4.50 - 5.25 M/uL 04/15/2024 3:08 PM EDT [facility] [place] 57-10 HGB 13.5(L) 14.0 - 16.8 g/dL 04/15/2024 3:08 PM EDT [facility] [place] 57[facility]10 HCT 39.7(L) 40.0 - 48.4 % 04/15/2024 3:08 PM EDT [facility] [place] 57[facility]10 MCV 94.3 82.0 - 99.5 fL 04/15/2024 3:08 PM EDT [facility] [place] 57-10 MCH 32.1 27.0 - 34.0 pg 04/15/2024 3:08 PM EDT [facility] [place] 57[facility]10 MCHC 34.0 32.0 - 36.0 g/dL 04/15/2024 3:08 PM EDT [facility] 57-10 RDW 13.9 11.5 - 15.5 % 04/15/2024 3:08 PM EDT [facility] 57-10 PLT 164 140 - 400 K/uL 04/15/2024 3:08 PM EDT [facility] 57-10 MPV 10.7 6.6 - 11.1 fL 04/15/2024 3:08 PM EDT [facility] 57-10 Blood Venous blood specimen / Unknown Venipuncture / Unknown 04/15/2024 2:59 PM EDT 04/15/2024 2:59 PM EDT Lokesh Amin MD LAB BLOOD [facility] [address] [facility] [place] [address] documented in this encounter Visit Diagnoses Diagnosis HTN, goal below 140/90 Unspecified essential hypertension Hypogonadism, male Other testicular hypofunction Nocturia Encounter for long-term (current) use of medications Encounter for long-term (current) use of other medications Type 2 diabetes mellitus with hemoglobin A1c goal of less than 8.0% (HCC) Decreased GFR Nonspecific abnormal results of kidney function study documented in this encounter Advance Directives * [...] and were consensually agreed upon. Care Teams Electrotype Finisher Relationship Specialty Start Date End Date Lokesh Amin MD [address] [place] [address] PCP - General Internal Medicine 07/22/21 documented as of this encounter
--- OUTSIDE RECORDS SUMMARY | 2024-07-19 11:41 | External Medical Summary | Summary of Care ---
Author Name Unknown Organization [facility] Address [address] [place] [address] Phone [phone] Care Team Providers Care Microsoft Net Developer Name Role Phone Lokesh Amin MD Primary Care Provider + Reason for Visit * Reason Comments Follow Up 8 month follow up. E justino in no worse then prior. Denies chest pain, palpitations, SOB and dizziness. Encounter Details Date Type Department Care Team (Late st Contact Info) Description 04/08/2024 1:30 PM EDT Office Visit Cardiology, [facility] [address] [place] [address] Fabian Mejia PA-C [address] [place] [address] S/P AVR (aortic valve replacement)*; Dyslipidemia, goal LDL below 70; HTN, goal below 140/90; Cardiac pacemaker in situ; Chronic diastolic congestive heart failure (HCC); Nonrheumatic aortic valve insufficiency; AVB (atrioventricular block) Allergies Active Allergy Reactions Criticality Noted Date Comments Demerol Neuro complications (Please comment) High 06/14/2010 confusion Adhesive Tape Rash Low 06/14/2010 documented as of this encounter (statuses as of 04/08/2024) Medications Medication Sig Dispensed Refills Start Date [...] after meals 100 Strip 1 04/04/2024 Active Expedit.usTouch UltraSoft LancetsIndications :Type 2 diabetes mellitus with [...] twice daily 360 Tablet 3 04/04/2024 Active OMEGA MG OR CAPS daily 0 01/17/2005 [...] as of this encounter (statuses as of 04/08/2024) Active Problems Problem Noted Date Diagnosed Date [...] as of this encounter (statuses as of 04/08/2024) Resolved Problems Problem Noted Date Diagnosed Date [...] as of this encounter (statuses as of 04/08/2024) Immunizations Name Administration Dates Next Due COVID-19 mRNA, LNP-s, No Pre serve, 2-Dose Series (Mendeley) 06/29/2021,12/15/2020,11/24/2020 COVID-19, LNP-s, No Preserve , Deric-sucrose, Ages 12+ (Pfizer) 02/04/2022 COVID-19, MRNA-LNP, 23-24, P F, 30 MCG/0.3 mL, 12 YRS AND ABOVE, IM (Datamolino-Comirnaty) 10/10/2023 Covid-19, Mrna, Lnp-s, Pf, B ivalent, [...] Sign Reading Time Taken Comments Blood Pressure 126/76 04/08/2024 1:33 PM EDT Pulse 76 04/08/2024 1:33 PM EDT Temperature - - Respiratory Rate 16 04/08/2024 1:33 PM EDT Oxygen Saturation - - Inhaled Oxygen Concentration - - Weight 88.3 kg (194 lb 12 oz) 04/08/2024 1:33 PM EDT Height - - Body Mass Index 30.05 03/27/2024 12:09 PM EDT documented in this [...] as of this encounter Progress Notes * Fabian Mejia PA-C - 04/08/2024 1:30 PM EDT History of Present Illness: Jhon Nelson is a 78 year old male followed by Dr. Olvera, returning today for routine cardiology follow-up evaluation. No chest pain. No palpitations. Stable unusual shortness of breath. Stable fluid retention, nonexistent in the morning. No orthopnea, PND, or abrupt weight change. No lightheadedness, dizziness, near syncope, or syncope. No epistaxis, hemoptysis, melena, hematochezia, or hematuria. Recent (03/27/2024) HgA1c 12.4%, now on insulin, following with the [facility]. Recent Mohs surgery, left ear, preauricular area. + Ambulatory dysfunction, without fall, handicapped placard application requested. Problem List: Severe symptomatic nonrheumatic aortic valve insufficiency, status post July 10, 2020 minimally invasive aortic valve replacement with 23 mm Epic valve (Serial number [id number]) by Dr. Ag Ballesteros. Postoperative course complicated by first-degree AV block/Mobitz type 1/junctional rhythm for whichbeta-jamila therapy was held, postoperative anemia, and urethral stricture requiring Mai catheter placement by Urology. Post pericardiotomy syndrome presenting with acute tamponade and atrial fibrillation July 23, 2020 undergoing urgent pericardiocentesis. Rehospitalization with post pericardiotomy syndrome pleural effusion responsive to steroids and diuretic August 10, 2020 Minimal coronary atherosclerosis preoperative cardiac catheterization, June 19, 2020 Intermittent AV dissociation and near syncope, status post dual chamber pacemaker implantation by Dr. Trivedi on November 13, 2020 Hypertension Diastolic congestive heart failure Chronic kidney disease Asymptomatic mild bilateral internal carotid artery disease Patient Active Problem List Diagnosis Impotence of organic origin Incisional hernia Esophageal reflux Hypogonadism, male Osteoarthritis of right hip LVH (left ventricular hypertrophy) HTN, goal below 140/90 Aortic valve regurgitation Heart failure, diastolic, due to HTN ([facility]) S/P AVR (aortic valve replacement) Left carotid stenosis Stage 3a chronic kidney disease Cardiac pacemaker in situ PAF (paroxysmal atrial fibrillation) ([facility]) Type 2 diabetes mellitus with hemoglobin A1c goal of less than 8.0% ([facility]) Chronic diastolic congestive heart failure ([facility]) Basal cell carcinoma (BCC) of skin of left ear and external auditory canal Past Medical History: Diagnosis Date Acute pancreatitis Adrenal mass, left ([facility]) 12/26/2014 Bowel obstruction ([facility]) Cardiac pacemaker in situ 11/19/2020 Diverticulitis of colon Glaucoma 01/30/2007 dr rivas HTN, goal below 140/90 12/11/2018 Impotence of organic origin Left carotid stenosis 08/18/2020 PAF (paroxysmal atrial fibrillation) ([facility]) 02/01/2022 Panniculitis 03/07/2012 Type 2 diabetes mellitus with hemoglobin A1c goal of less than 8.0% ([facility]) 08/24/2022 Past Surgical History: Procedure Laterality [...] performed by Colt North MD at OR [facility] CYSTOSCOPY/TREAT MINOR LESION(S) N/A 01/27/2015 CYSTOURETHROSCOPY WITH FULGURATION MINOR BLADDER TUMOR performed by Colt North MD at [facility] IMPLANT MESH W/ ABD HERNIA REPR/DEBRIDE 08/14/2012 IMPLANTATION MESH WITH INCISIONAL/VENTRAL HERNIA performed by Adryan Kunz MD at [facility] MUSCLE-SKIN FLAP, TRUNK 10/18/2011 MUSCLE MYOCUTANEOUS OR FASCIOCUTANEOUS FLAP TRUNK performed by NANCY GARCIA at [facility] MUSCLE-SKIN FLAP, TRUNK 10/25/2011 MUSCLE MYOCUTANEOUS OR FASCIOCUTANEOUS FLAP TRUNK performed by NANCY GARCIA at [place] [facility] PARTIAL REMOVAL OF COLON REMOVAL OF APPENDIX REMOVAL OF PROSTATE (TURP) 01/27/2015 TRANSURETHRAL RESECTION PROSTATE ELECTROSURGICAL performed by Colt North MD at [facility] REMOVAL OF TONSILS, UNDER AGE 12 REMOVE GALLBLADDER REPAIR INITIAL INCISIONAL OR VENTRAL HERNIA; REDUCIBLE 04/25/2011 REPAIR INITIAL INCISIONAL /VENTRAL HERNIA REDUCIBLE performed by [place] CHRISTINE at [place] [facility] performed REPAIR INITIAL INCISIONAL OR VENTRAL HERNIA; REDUCIBLE 09/22/2011 REPAIR INITIAL INCISIONAL /VENTRAL HERNIA REDUCIBLE performed by [place] CHRISTINE at [facility] REPAIR INITIAL INCISIONAL OR VENTRAL HERNIA; REDUCIBLE 10/25/2011 REPAIR INITIAL INCISIONAL /VENTRAL HERNIA REDUCIBLE performed by [place] CHRISTINE at [facility] REPAIR INITIAL INCISIONAL OR VENTRAL HERNIA; REDUCIBLE 08/14/2012 REPAIR INITIAL INCISIONAL /VENTRAL HERNIA REDUCIBLE performed by Adryan Kunz MD at [facility] REPLACEMENT AORTIC VALVE, BYPASS WITH PROSTHETIC VALVE N/A 07/10/2020 REPLACEMENT AORTIC VALVE, BYPASS WITH PROSTHETIC VALVE performed by Ag Ballesteros MD at [facility] TOTAL HIP REPLACEMENT & PROSTHESIS 11/04/2013 Right - Dr. 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 Employer: [employer] Social Needs Financial resource strain: Not on file Food insecurity Worry: Never true Inability: Never true Transportation needs Medical: Not on file Non-medical: Not on file Tobacco Use Smoking status: Former Smoker Years: 20.00 Types: Cigars Quit date: 04/17/2010 Years since quittin.1 Smokeless tobacco: Never Used Substance and Sexual Activity Alcohol use: Yes Alcohol/week: 5.8 standard drinks Types: 7 5 oz of wine per week Comment: a glass in the evening- most nights but not all Complete Review of Systems is as stated above, negative, or noncontributory. Review of patient's allergies indicates: Allergen Reactions [...] Silver 50+Men Oral Tablet Take by mouth. Expedit.usTouch Verio w/Device Kit Use up to check sugar first thing in am and 2 hours after meals 1 Kit 0 OneTouch Verio In Vitro Strip (Glucose Blood) Use up to check sugars first thing in am and 2 hours after meals 100 Strip 1 Expedit.usTouch UltraSoft Lancets Use up to check sugar [...] two tablets twice daily 360 Tablet 3 amoxicillin (AMOXIL) 500 MG Capsule Take 1 [...] 100 mg 100 mg Intramuscular Q Month TruongrejiJusten, DO 100 mg at 04/04/24 1427 OBJECTIVE/PHYSICAL EXAMINATION: BP 126/76 | Pulse 76 | Resp 16 | Wt 88.3 kg (194 lb 12 oz) | BMI 30.05 kg/m | BSA 2.05 m General: A&Ox3. NAD. HENT: Dressing over the ear not removed. Eyes: PER. Conjunctiva pink, sclera clear. Neck: Right carotid bruit. No JVD. No HJR. Heart: Regular at 76 bpm. Soft systolic ejection murmur. No diastolic murmur. PMI is nondisplaced. Chest: Left subclavian pacemaker generator. Lungs: Clear to auscultation. Abdomen: + surgical scars. +BS. Soft. Nontender. No masses or organomegaly. Extremities: Mild edema. Stasis changes. No clubbing. No cyanosis. Limited neurological examination is without focal deficits. Pulses: radial=2/4, posterior tibial=2/4. Data: June 19, 2020 coronary angiography ([facility], Dr. Olvera): Dominant: Right (Massive vessel) Left Main: Proximal (10) and Distal (30) LAD: Mid (Mild irregularities) D1: Normal Circumflex: Proximal (Small vestigial vessel) RCA: Normal R PDA: Normal R PL1: Normal R PL2: Normal (Large bifurcating vessel with both subbranches reaching well to the lateral wall andapex) Ramus: Normal (Moderately large bifurcating vessel) April 07, 2021 TTE Interpretation Summary (as per Dr. Cassidy): The LV wall thickness is moderatelyincreased (concentric). Abnormal septal motion noted, perhaps consistent with pacemaker activation.The regional left ventricular wall motion is otherwise normal. The qualitative LV ejection fractionis 65-69% (normal). The left atrium is mildly enlarged. There is an aortic valve bioprosthetic present. The aortic valve prosthesis systolic gradients are normal for this type prosthesis. Significantaortic valve prosthesis regurgitation is absent. Compared to the prior study dated 09/21/2020, the localized thrombus adjacent to the right ventricle on the parasternal short axis images has resolved. Compared to the previous study dated 08/05/2020, the prosthetic aortic valve gradients are stable without significant interval change. Carotid duplex in January 2022 revealed stable mild bilateral internal carotid artery disease. October 12, 2023 TTE Interpretation Summary (as per Dr. Cassidy): The LV wall thickness is mildly increased (concentric). The left ventricular wall motion is normal. The left ventricular diastolic function is moderately abnormal (grade II). There is an aortic valve bioprosthetic present. Significant aortic valve prosthesis regurgitation is absent. Prosthetic leaflets are the upper limit of normal for this prosthesis and are slightly higher than the previous noted in March,. Mild mitral regurgitation is present. Pacemaker interrogation on February 26, 2024 demonstrated appropriate function. Remaining longevity: 8.9years. Time in AT/AF: 6.6% since November 06, 2023, with a controlled ventricular response. Atrial paced 26.6%. Ventricular paced 99.2% ASSESSMENT AND RECOMMENDATIONS/PLAN: Severe symptomatic nonrheumatic aortic valve insufficiency status post July 10, 2020 minimally invasive aortic valve replacement with [address] mm [address] valve [address] Ag Ballesteros. Paroxysmal atrial fibrillation, asymptomatic, chronically prescribed Eliquis anticoagulation Post pericardiotomy syndrome presenting with acute tamponade and atrial fibrillation July 23, 2020 undergoing urgent pericardiocentesis, rehospitalization with post pericardiotomy syndrome pleuraleffusion responsive to steroids and diuretic August 10, 2020, possible restrictive disease Minimal coronary atherosclerosis preoperative cardiac catheterization, June 19, 2020 Diastolic congestive heart failure. Acceptably compensated. Continue furosemide and spironolactone as prescribed. Intermittent AV dissociation and near syncope, status post dual chamber pacemaker implantation by Dr. Trivedi on November 13, 2020 Hypertension Chronic kidney disease Asymptomatic mild bilateral internal carotid artery disease Dyslipidemia. LDL cholesterol 36 mg/dL on 06/26/2023. On atorvastatin 10 mg/day No changes made today. Handicapped placard application completed as requested. Routine cardiology follow-up in 6 months or as needed. ER with emergencies. Fabian Mejia PA-C Department of Cardiology I spent a total of 30-39 minutes (exact time 30 mins) on the date of service in preparation, delivery, and documentation of the care provided to Jhon Nelson excluding any time spent in the performance of separately billed services. This visit involved medical care services related to at least one serious condition or complex condition requiring ongoing care. This chart was completed in part utilizing [email or web address] Speech Voice Recognition Software. Grammatical errors, random word insertions, prounoun errors, and incomplete sentences are an occasional consequence of this system due to software limitations, ambient noise, and hardware issues. Any formal questions or concerns about the content, text, or information contained within the body of this dictation should be directly addressed tothe provider for clarification. documented in this encounter Nursing Notes * Jeff Ram LPN - 04/08/2024 1:33 PM EDT Patient identified by full name and date of Chief Complaint Patient presents with Follow Up 8 month follow up. Edema in no worse then prior. Denies chest pain, palpitations, SOB and dizziness. Examination Room: 1 Name: Jhon Nelson Date of : (1945). Reason for Visit: 8 month follow up Interim Hospitalization(s): Denies Problems/Concerns: See chief complaint Chest Pain/SOB: Denies [facility] Discussed: Not applicable [facility] is a way you can talk to your provider online through e-mail. Would you like to sign up? I can activate it for you? ALREADY ACTIVE Patient was instructed to not get up on the exam table until directed and assisted by their provider; patient is to remain seated in the chair/ wheelchair/ exam table for fall prevention and safety reasons. Patient is aware to have assistance to step down off exam table with personnel. Patient voiced full comprehension of instructions. documented in this encounter Plan of Treatment Upcoming Encounters Date Type Department Care Team (Late st Contact Info) Description 04/09/2024 2:45 PM EDT Office Visit [facility] [address] [place] [address] Becky Gordon MD [address] [place] [address] 04/11/2024 1:00 PM EDT Telemedicine Pharmacy, [facility] [address] [facility] [place] [address] Pharmacist1, [facility] [address] [place] [address] 05/06/2024 2:00 PM EDT Nurse Only Ancillary [facility] [address] [facility] [place] [address] Nurse, Int Med [address] [facility] [place] [address] 10/14/2024 3:00 PM EST Office Visit Cardiology, [facility] [address] [facility] [place] [address] Fabian Mejia PA-C [address] [facility] [address] 11/14/2024 2:00 PM EST Office Visit General Internal Medicine [facility] [address] [facility] [place] [address] Lokesh Amin MD [address] [facility] [place] [address] 03/18/2025 10:45 AM EDT Office Visit Dermatology [facility] [address] [facility] [place] [address] Lokesh Mayen MD [address] [facility] [place] [address] Scheduled Procedures Name Priority Associated Diagnoses Date/Ti [...] 03/27/2024, 10/2023, 02/28/2023, Additional history exists GFR 10/04/2024 04/03/2024, 11/2023, 06/26/2023, Additional history exists CKD HGB USE SMARTSET 07401 10/27/202410/27, 10/27/2023, 09/26/2023, Additional history exists CKD PHOS USE SMARTSET 10862 03/27/202511/2023, 09/26/2023, 08/23/2022, Additional history exists Depression [...] this encounter Medical Devices Implanted Type Area Bedspread Folder Device Identifier Shelf Expiration Date Model / Serial / Lot Strattice [id number] (400 Units) - [id number] Implanted:Qty : 400 on 10/25/2011 at [place] [facility] Abdomen LIFE CELL MISTY 12/23/2012 [id number] / / [id number] Mesh Prolit Hernia [id number] - [id number] Implanted:Qty : 1 on 08/14/2012 at [place] [facility] Left: Abdomen [employer] 12/24/2015 [id number] / / [id number] Suture Steel 6 B&S19 M654g - [id number] Implanted:Qty : 3 on 07/10/2020 by Ag Ballesteros MD at [facility] N/A: Sternum JNJ : [employer] 02/22/2025 [id number] / / [id number] Valve Heart Aortic Epic 23mm - [id number] - [id number] Implanted:Qty : 1 on 07/10/2020 by Ag Ballesteros MD at [place] [facility] N/A: Aorta ST DOMINIK : CARDIOVASCULAR [id number] 03/22/2024 [id number] / [id number] / [id number] documented as of this encounter Visit Diagnoses Diagnosis S/P AVR (aortic valve replacement)- Primary Heart valve replaced by other means Dyslipidemia, goal LDL below 70 Other and unspecified hyperlipidemia HTN, goal below 140/90 Unspecified essential hypertension Cardiac pacemaker in situ Chronic diastolic congestive heart failure (HCC) Chronic diastolic heart failure Nonrheumatic aortic valve insufficiency Aortic valve disorders AVB (atrioventricular block) Atrioventricular block, unspecified documented in this encounter Advance Directives * [...] and were consensually agreed upon. Care Teams Microsoft Net Developer Relationship Specialty Start Date End Date Lokesh Amin MD [address] [place] [address] PCP - General Internal Medicine 07/22/21 documented as of this encounter"
--- OUTSIDE RECORDS SUMMARY | 2024-07-19 11:41 | External Medical Summary ---
Author Name Unknown Address Unknown Organization [facility] [address] [place] [address] Laboratory Report Ordering Provider Test Date Status COREY JARAMILLO 04/10/2024 15:16:58 Final Observation Date Value Abnormality Reference (Units ) Status BUN 04/10/2024 15:16:58 35 Above high normal 6-20 (mg/dL) Final Creatinine 04/10/2024 15:16:58 1.7 Above high normal 0.6-1.2 (mg/dL) Final Glomerular filtration rate/1.73 sq M.predicted [Volume Rate/Area] in Serum, Plasma or Blood by Creatinine-based formula (CKD-EPI) 04/10/2024 15:16:58 40 Below low normal >=60 (mL/min) Final eGFR is calculated based on the CKD-EPI 2020 equation. Sodium 04/10/2024 15:16:58 132 Below low normal 135 -146 (mmol/L) Final Potassium 04/10/2024 15:16:58 4.2 3.5-5.1 (m mol/L) Final Cl 04/10/2024 15:16:58 96 Below low normal 98- 107 (mmol/L) Final CO2 04/10/2024 15:16:58 25 22-32 (mmo l/L) Final Anion gap 04/10/2024 15:16:58 11 7-15 (mmol /L) Final Glucose 04/10/2024 15:16:58 130 Above high normal 70 -120 (mg/dL) Final Calcium 04/10/2024 15:16:58 10.4 Above high normal 8. 4-10.2 (mg/dL) Final Performing Location [facility] [address] [place] [address]
--- OUTSIDE RECORDS SUMMARY | 2024-07-19 11:41 | External Medical Summary | Summary of Care ---
Author Name Unknown Organization [facility] Address [address] [place] [address] Phone [phone] Care Team Providers Care Hoop Riveting Machine Operator Helper Name Role Phone Lokesh Amin MD Primary Care Provider + Reason for Visit * Reason Comments Outpatient Testing Encounter Details Date Type Department Care Team (Late st Contact Info) Description 04/10/2024 3:40 PM EDT Laboratory Laboratory, [facility] [address] [place] [address] [facility] [address] [place] [address] Type 2 diabetes mellitus with hemoglobin A1c goal of less than 8.0% ([facility]) Allergies Active Allergy Reactions Criticality Noted Date Comments Demerol Neuro complications (Please comment) High 06/14/2010 confusion Adhesive Tape Rash Low 06/14/2010 documented as of this encounter (statuses as of 04/10/2024) Medications Medication Sig Dispensed Refills Start Date [...] hemoglobin A1c goal of less than 8.0% ([facility]) Inject 10 Units under the skin daily. Titrating dose - max dose 30 units daily. DX: E11.9 5 Each 3 04/04/2024 Active Insulin Pen Needle 32G X 6 MMIndications:Type 2 diabetes mellitus with hemoglobin A1c goal of less than 8.0% ([facility]) Use to inject insulin once daily. [...] as of this encounter (statuses as of 04/10/2024) Active Problems Problem Noted Date Diagnosed Date [...] as of this encounter (statuses as of 04/10/2024) Resolved Problems Problem Noted Date Diagnosed Date [...] as of this encounter (statuses as of 04/10/2024) Immunizations Name Administration Dates Next Due COVID-19 mRNA, LNP-s, No Pre serve, 2-Dose Series (SuVolta) 06/29/2021,12/15/2020,11/24/2020 COVID-19, LNP-s, No Preserve , Deric-sucrose, [...] Description 04/11/2024 1:00 PM EDT Telemedicine Pharmacy, [facility] [address] [facility] [place] [address] Pharmacist1, [facility] [address] [facility] [place] [address] 04/26/2024 2:00 PM EDT Office Visit MOHS Surgery [facility] [address] [place] [address] Becky Gordon MD [address] [facility] [place] [address] 05/06/2024 2:00 PM EDT Nurse Only Ancillary [facility] [address] [place] [address] Nurse, Int Med [address] [facility] [place] [address] 10/14/2024 3:00 PM EST Office Visit Cardiology, [facility] [address] [place] [address] Fabian Mejia PAFrannie [address] [place] [address] 11/14/2024 2:00 PM EST Office Visit General Internal Medicine [facility] [place] [address] [facility] [place] [address] Lokesh Amin MD [address] [facility] [place] [address] 03/18/2025 10:45 AM EDT Office Visit Dermatology [facility] [place] [address] [facility] [place] [address] Lokesh Mayen MD [address] [facility] [place] [address] Pending Results Name Type Priority Associated Diagnoses Date /Time BASIC METABOLIC PANEL Lab Routine Type 2 diabetes mellitus with hemoglobin A1c goal of less than 8.0% ([facility]) 04/10/2024 3:16 PM EDT Scheduled Procedures Name Priority Associated Diagnoses Date/Ti or COLONOSCOPY FLEXIBLE PROXIMAL DIAGNOSTIC Recall Colon cancer screening Health Maintenance Due Date Last Done Comments COVID-19 Vaccine ( season) 2023 10/10/2023, 03/02/2023, 02/04/2022, Additional history exists Influenza Vaccine (FLU shot) (#1) 2024 06/26/2023, 06/09/2022, 06/17/2021, Additional history exists Diabetic Eye Exam 08/01/2024 08/01/2023, , 07/25/2005 Albumin/Creatinine Ratio 09/26/2024 09/26/2023, 07/27 HbA1c 09/27/2024 03/27/2024, 10/2023, 02/28/2023, Additional history exists GFR 10/04/2024 04/03/2024, 0 11/2023, 06/26/2023, Additional history exists CKD HGB USE SMARTSET 32802 10/27/202410/27, 10/27/2023, 09/26/2023, Additional history exists CKD PHOS USE SMARTSET 08649 03/27/2025 0711/2023, 09/26/2023, 08/23/2022, Additional history exists [...] this encounter Medical Devices Implanted Type Area Automatic Teller Machine Servicer Device Identifier Shelf Expiration Date Model / Serial / Lot Strattice [id number] (400 Units) - [id number] Implanted:Qty : 400 on 10/25/2011 at OR [facility] Abdomen LIFE CELL MISTY 12/23/2012 [id number] / / [id number] Mesh Prolit Hernia [id number] - [id number] Implanted:Qty : 1 on 08/14/2012 at OR [facility] Left: Abdomen [employer] 12/24/2015 [id number] / / [id number] Suture Steel 6 B&S19 M654g - [id number] Implanted:Qty : 3 on 07/10/2020 by Ag Ballesteros MD at OR [facility] N/A: Sternum JNJ : [employer] 02/22/2025 [id number] / / [id number] Valve Heart Aortic Epic 23mm - [id number] - [id number] Implanted:Qty : 1 on 07/10/2020 by Ag Ballesteros MD at OR [facility] N/A: Aorta ST DOMINIK : CARDIOVASCULAR [id number] 03/22/2024 [id number] 00 / [id number] / [id number] documented as of this encounter Visit Diagnoses [...] and were consensually agreed upon. Care Teams Hoop Riveting Machine Operator Helper Relationship Specialty Start Date End Date Lokesh Amin MD [address] [facility] [place] [address] PCP - General Internal Medicine 07/22/21 documented as of this encounter
--- OUTSIDE RECORDS SUMMARY | 2024-07-19 11:41 | External Medical Summary | Summary of Care ---
Author Name Unknown Organization [facility] Address [address] [place] [address] Phone [phone] Care Team Providers Care Quick Print Operator Name Role Phone Lokesh Amin MD Primary Care Provider + Reason for Visit * Reason Comments Diabetes Follow-Up Diabetes Education Dosage Adjustment In Person (Anticoag Cl inic) Encounter Details Date Type Department Care Team (Late st Contact Info) Description 04/04/2024 1:20 PM EDT Office Visit Pharmacy, [facility] [address] [place] [address] Pharmacist1, [facility] 200 [facility] [place] [address] Type 2 diabetes mellitus with hemoglobin A1c goal of less than 8.0% ([facility])* Allergies Active Allergy Reactions Criticality Noted Date Comments Demerol Neuro complications (Please comment) High 06/14/2010 confusion Adhesive Tape Rash Low 06/14/2010 documented as of this encounter (statuses as of 04/04/2024) Medications Medication Sig Dispensed Refills Start Date End Date Status GINKOBA 40 MG OR TABS 0 05/10/2004 Active OMEGA MG OR CAPS daily 0 01/17/2005 Active GLUCOSAMINE CHONDROITIN OR TABSIndications:Javan n in limb tid 90 5 08/08/2005 Active Additional Information Patient taking differently:OralDaily(AM), Informant: Patient, Reported on 05/17/2023 VITAMIN C 500 MG PO TABS 1 TABLET DAILY 0 08/15/2006 Active CALCIUM CITRATE + D 315-200 MG-UNIT PO TABS one tab daily Active COLACE 100 MG PO CAPSIndications:Int estinal obstruction (HCC) one cap daily 12/23/2010 Active Cholecalciferol (VITAMIN D) 1000 units Tablet Take 1 Tablet by mouth in the morning. 09/05/2017 Active latanoprost (XALATAN) 0.005 % ophthalmic solution [...] as of this encounter (statuses as of 04/04/2024) Active Problems Problem Noted Date Diagnosed Date [...] as of this encounter (statuses as of 04/04/2024) Resolved Problems Problem Noted Date Diagnosed Date [...] as of this encounter (statuses as of 04/04/2024) Immunizations Name Administration Dates Next Due COVID-19 mRNA, LNP-s, No Pre serve, 2-Dose Series ([employer]) 06/29/2021,12/15/2020,11/24/2020 COVID-19, LNP-s, No Preserve , Deric-sucrose, Ages 12+ ([employer]) 02/04/2022 COVID-19, MRNA-LNP, 23-24, P F, 30 MCG/0.3 mL, 12 YRS AND ABOVE, IM ([facility]) 10/10/2023 Covid-19, Mrna, Lnp-s, Pf, B ivalent, 30 Mcg, IM, 12 yrs and above ([employer]) 03/02/2023 Hepatitis B, 20+ yrs 04/01/2024,2023,09/29 Pneumococcal [...] this encounter Progress Notes * Jamal Berrios, [facility] - 04/04/2024 1:23 PM EDT Medication Therapy Disease Management Clinic - Diabetes Management Progress Note Jhon Nelson, identified by name and date of , is a 78 year old male being seen for diabetes management/education. Patient presents for initial diabetic visit. 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 Bowel obstruction ([facility]) Cardiac pacemaker in situ 11/19/2020 Diverticulitis of colon Glaucoma 01/30/2007 dr rivas HTN, goal below 140/90 12/11/2018 Impotence of organic origin Left carotid stenosis 08/18/2020 PAF (paroxysmal atrial fibrillation) ([facility]) 02/01/2022 Panniculitis 03/07/2012 Type 2 diabetes mellitus with hemoglobin A1c goal of less than 8.0% ([facility]) 08/24/2022 Diagnosis: Type 2 Age of diabetes diagnosis: 78 Family history of diabetes: dad Microvascular complications: nephropathy Macrovascular complications: hypertension dyslipidemia coronary artery disease DIABETES: Current diabetic medications: None Medication Injection Site: N/A Lifestyle: Diet: Comprehensive Diet Review Meal #1 (10:30-11 AM): Breakfast biscuit sandwich or 2 eggs w/hungarian muffin mandarin orange; tea Meal #2 (3 PM): chicken sandwich, water Meal #3 (7PM): Healthy choice frozen meals, diet Pepsi Snacks: evening 15-20 chips, oatmeal raisin cookie Beverages: tea, water, diet Pepsi Activity: inactive at this time Alcohol: regular use glass red wine Tobacco Use: Former pipe smoker History of Treatment Barriers: Lifestyle: None Therapy considerations: Renal Function, Heart Failure - consider using SGLT-2, and History of Medullary Thyroid Cancer - GLP-1 contraindicated Medication: None Glucose Review/SMBG: No BG - new meter teaching today. Hypoglycemia: Does your blood sugar go below 70 mg/dL? No Hyperglycemia symptoms present: polyurea, polydipsia Recent Labs Units 03/27/24 1234 09/26/23 1425 02/28/23 1016 HEMOGLOBIN A1C - [facility] % 12.4* 6.7* 6.7* Recent Labs Units 04/03/24 1447 03/27/24 1234 06/26/23 1025 ESTIMATED GLOMERULAR FILTRATION RATE - [facility] mL/min 64 55* 65 CREATININE - [facility] mg/dL 1.2 1.3* 1.2 Lab Results Component Value Date/Time CREATININE - [facility] 1.2 04/03/2024 02:47 PM CREATININE - [facility] 1.3 (H) 03/27/2024 12:34 PM CREATININE - [facility] 1.2 06/26/2023 10:25 AM CREATININE - [facility] 1.3 (H) 10/13/2020 11:39 [...] daily BP Readings from Last 3 Encounters: 03/27/24 122/70 09/26/23 116/74 08/07/23 116/76 Blood pressure at goal: yes HYPERLIPIDEMIA: Patient is taking moderate or high intensity statin: yes. Atorvastatin 10mg daily HEALTH MAINTENANCE REVIEW: Health Maintenance Due Topic Date Due COVID-19 Vaccine ( season) 2023 ASSESSMENT & PLAN: ICD-10-CM 1. Type 2 diabetes mellitus with hemoglobin A1c goal of less than 8.0% ([facility]) E11.9 Lengthy discussion on diabetes pathophysiology, role of diet and macronutrients on blood glucose control and benefits of exercise. Taught patient what A1C means. Taught patient plate method for eating. Explained how having proteinwith meal will help to slow carb absorption. Taught patient how medications work. Taught patient rule of 15s for treating hypoglycemia. BG Readings - Blood sugars not available. Patient to clinic for BG meter instruction. Ensured date and time were set correctly and performed successful control test. Taught navigation of BG meter menu, buttons, and reviewing BG results. Demonstrated proper BG fingerstick technique including insertion of the test strip into the meter, proper cleaning of the site, ideal locations on the finger to test, how to use lancing device, and draw blood sample into the test strip. Reviewed proper disposal of supplies, including sharps. Also reviewed best times to test BG and counseled on the importance of BG readings in the evaluation of BG trends and adjustment of medications. Medications - Patient on no medication. Patient interested in a Novolog pen. Taught patient how to use insulin pen. Reviewed with patient individual steps to do before pen is ready to use: washing hands, if using cloudy insulin to roll pen between hands to mix insulin, removing protective seal frompen needle and screwing needle onto pen, and removing both outer and inner needle caps and making sure the dose selector is set at zero. Reviewed priming the pen with two units before each use. Reviewed dialing the pen to patient's dose. Reviewed proper injection technique. Patient verbalized understanding and displayed successful technique. Diet, Exercise, Lifestyle - He has altered his diet some from pre-diagnosis . Discussed with patient today. Patient is agreeable to SMBG 2 time(s) daily. Patient aware to contact clinic if any hypoglycemia before next visit. MEDICATION CHANGES: yes, see below; preferred pharmacy: [facility] Diabetic Medications: START: Metformin ER 500mg 1 tablet twice daily for 1 week then increase to 2 tablets twice daily START: Lantus 10 units daily (titrating dose in one week) HEALTH MAINTENANCE INTERVENTIONS: Labs: Up to Date Immunizations: Up to Date Foot Exam: Up to Date Eye Exam: Up to Date Annual Wellness Visit: Up to Date FOLLOW UP: Phone call follow up in 1 week 04/11/2024 Jamal Espinoza RPh, DWAYNEE Clinical Pharmacist - Boat Joiner Medication Therapy Management [facility] 04/04/2024, 1:24 PM documented in this encounter Plan of Treatment Upcoming Encounters Date Type Department Care Team (Late st Contact Info) Description 04/08/2024 1:30 PM EDT Office Visit Cardiology, [facility] [address] [place] [address] Fabian Mejia PA-C [address] [place] [address] 04/09/2024 2:45 PM EDT Office Visit MOHS [facility] [address] [place] [address] Becky Gordon MD [address] [facility] [place] [address] 04/11/2024 1:00 PM EDT Telemedicine Pharmacy, [facility] [place] [address] [place] [address] Pharmacist1, [facility] [address] [place] [address] 05/06/2024 2:00 PM EDT Nurse Only Ancillary [facility] [place] [address] [place] [address] [address] Nurse, Int Med [address] [place] [address] [address] [address] 11/14/2024 2:00 PM EST Office Visit General Internal Medicine [facility] [place] [address] [facility] [place] [address] Lokesh Amin MD [address] [facility] [place] [address] 03/18/2025 10:45 AM EDT Office [facility] [place] [address] [facility] [place] [address] Lokesh Mayen MD [address] [facility] [place] [address] Scheduled Procedures Name Priority Associated Diagnoses Date/Ti me COLONOSCOPY FLEXIBLE PROXIMAL DIAGNOSTIC Recall Colon cancer screening Health Maintenance Due Date Last Done Comments COVID-19 Vaccine ( season) 2023 10/10/2023, 03/02/2023, 02/04/2022, Additional history exists Influenza Vaccine (FLU shot) (#1) 2024 06/26/2023, 06/09/2022, 06/17/2021, Additional history exists Diabetic Eye Exam 08/01/2024 08/01/2023, , 07/25/2005 Albumin/Creatinine Ratio 09/26/2024 09/26/2023, 07/27 HbA1c 09/27/2024 03/27/2024, 0 10/2023, 02/28/2023, Additional history exists GFR 10/04/2024 04/03/2024, 07/0 11/2023, 06/26/2023, Additional history exists CKD HGB USE SMARTSET 48151 10/27/202410/27, 10/27/2023, 09/26/2023, Additional history exists CKD PHOS USE SMARTSET 81708 03/27/2025 07/0 11/2023, 09/26/2023, 08/23/2022, Additional history [...] this encounter Medical Devices Implanted Type Area Stonework Supervisor Device Identifier Shelf Expiration Date Model / Serial / Lot Strattice [id number] (400 Units) - [id number] Implanted:Qty : 400 on 10/25/2011 [place] [facility] [place] Abdomen LIFE CELL MISTY 12/23/2012 [id number] / / [id number] Mesh Prolit Hernia [id number] - [id number] Implanted:Qty : 1 on 08/14/2012 at [place] [facility] [place] Left: Abdomen [employer] 12/24/2015 [id number] / / [id number] Suture Steel 6 B&S19 M654g - [id number] Implanted:Qty : 3 on 07/10/2020 by Ag Ballesteros MD at [place] [facility] [place] N/A: Sternum JNJ : [employer] 02/22/2025 M654G / / [id number] Valve Heart Aortic Epic 23mm - [id number] - [id number] Implanted:Qty : 1 on 07/10/2020 by Ag Ballesteros MD at [place] [facility] [place] N/A: Aorta ST DOMINIK : CARDIOVASCULAR [id number] 03/22/2024 [id number] 00 / [id number] / [id number] documented as of this encounter Visit Diagnoses [...] and were consensually agreed upon. Care Teams Quick Print Operator Relationship Specialty Start Date End Date Lokesh Amin MD [address] [place] [address] PCP - General Internal Medicine 07/22/21 documented as of this encounter
--- OUTSIDE RECORDS SUMMARY | 2024-07-19 11:41 | External Medical Summary | Summary of Care ---
Author Name Unknown Organization [facility] Address [address] [place] [address] Phone [phone] Care Team Providers Care Health Assessment And Treatment Teacher Name Role Phone Lokesh Amin MD Primary Care Provider + Reason for Visit * Reason Onset Date Comments Medication Administration 04/04/2024 Encounter Details Date Type Department Care Team (Late st Contact Info) Description 04/04/2024 2:00 PM EDT Nurse Only Ancillary [facility] [place] [address] [facility] [address] Nurse, Int Med [address] [place] [address] Medication Administration Allergies Active Allergy Reactions Criticality Noted Date [...] after meals 100 Each 1 04/04/2024 Active Hospital, Clinic, or Other Facility [...] mRNA, LNP-s, No Pre serve, 2-Dose Series (Molecular Detection) 06/29/2021,12/15/2020,11/24/2020 COVID-19, LNP-s, No Preserve , Deric-sucrose, [...] of this encounter Progress Notes * Carlos Durbin MED ASSIST - 04/04/2024 2:33 PM EDT Patient was identified by full name and date of . Jhon Nelson presented for injection. This was administered per orders. The patient tolerated this well and left the clinic in stable condition. CHANDA Duncan documented in this encounter Plan of Treatment Upcoming Encounters Date Type Department Care Team (Late st Contact Info) Description 04/08/2024 1:30 PM EDT Office Visit Cardiology, [facility] [address] [place] [address] Fabian Mejia PA-C [address] [place] [address] 04/09/2024 2:45 PM EDT Office Visit MOHS Surgery [facility] [address] [facility] [place] [address] Becky Gordon MD [address] [place] [address] 04/11/2024 1:00 PM EDT Telemedicine Pharmacy, [facility] [place] [address] [place] [address] Pharmacist1, [facility] [address] [facility] [place] [address] 05/06/2024 2:00 PM EDT Nurse Only Ancillary [facility] [address] [facility] [place] [address] Nurse, Int Med [address] [facility] [place] [address] 11/14/2024 2:00 PM EST Office Visit General Internal Medicine [facility] [address] [facility] [address] Lokesh Amin MD [address] [facility] [place] [address] 03/18/2025 10:45 AM EDT Office Visit Dermatology [place] [address] [facility] [place], [place] [address] Lokesh Mayen MD [address] [facility] [place], [place] [address] Scheduled Procedures Name Priority Associated Diagnoses Date/Ti me COLONOSCOPY FLEXIBLE PROXIMAL DIAGNOSTIC Recall Colon cancer screening Health Maintenance Due Date Last Done Comments COVID-19 Vaccine ( season) 2023 10/10/2023, 03/02/2023, 02/04/2022, Additional history exists Influenza Vaccine (FLU shot) (#1) 2024 06/26/2023, 06/09/2022, 06/17/2021, Additional history exists Diabetic Eye Exam 08/01/2024 08/01/2023, , 07/25/2005 Albumin/Creatinine Ratio 09/26/2024 09/26/2023, 07/27 HbA1c 09/27/2024 03/27/2024, 0110/2023, 02/28/2023, Additional history exists GFR 10/04/2024 04/03/2024, 07/0 11/2023, 06/26/2023, Additional history exists CKD HGB USE SMARTSET 82849 10/27/202410/27, 10/27/2023, 09/26/2023, Additional history exists CKD PHOS USE SMARTSET 30313 03/27/2025 07/0 11/2023, 09/26/2023, 08/23/2022, Additional history [...] this encounter Medical Devices Implanted Type Area Lumber Bearer Device Identifier Shelf Expiration Date Model / Serial / Lot Strattice [id number] (400 Units) - [id number] Implanted:Qty : 400 on 10/25/2011 at OR [facility] [place] Abdomen LIFE CELL MISTY 12/23/2012 [id number] / / [id number] Mesh Prolit Hernia [id number] - [id number] Implanted:Qty : 1 on 08/14/2012 at OR [facility] [place] Left: Abdomen [employer] 12/24/2015 [id number] / / [id number] Suture Steel 6 B&S19 M654g - [id number] Implanted:Qty : 3 on 07/10/2020 by Ag Ballesteros MD at OR [facility] [place] N/A: Sternum JNJ : [employer] 02/22/2025 M654G / / [id number] Valve Heart Aortic Epic 23mm - [id number] - [id number] Implanted:Qty : 1 on 07/10/2020 by Ag Ballesteros MD at OR [facility] [place] N/A: Aorta ST DOMINIK : CARDIOVASCULAR [id number] 03/22/2024 [id number]- 00 / [id number] / [id number] documented as of this encounter Visit Diagnoses Diagnosis 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 Care Teams Health Assessment And Treatment Teacher Relationship Specialty Start Date End Date Lokesh Amin MD [address] [place] [address] PCP - General Internal Medicine 07/22/21 documented as of this encounter
--- OUTSIDE RECORDS SUMMARY | 2024-07-19 11:41 | External Medical Summary | Summary of Care ---
Author Name Unknown Organization [facility] Address [address] [place] [address] Phone [phone] Care Team Providers Care Recyclable Materials Sorter Name Role Phone Lokesh Amin MD Primary Care Provider + Reason for Referral * Evaluate & Treat - Unlimited Visits (Within 3 days (urgent)) - Authorized Specialty Diagnoses / Procedures Referred By Contsonal t Referred To Contact Pharmacist / Pharmacy Diagnoses Type 2 diabetes mellitus with hemoglobin A1c goal of less than 8.0% ([facility]) Lokesh Amin MD [address] [place] [address] Referral ID Status Reason Start Date Expiration Date Visits Requested Visits Authorized [id number] Authorized Specialty Services Required 03/28/2024 09/24/2024 99 99 Question Answer Referral Priority Within 3 days (urgent) Where should this appointment be scheduled? [facility] Referring Provider Role: Primary Care Reason for Referral: DM Target A1c: < 8 Comments Pharmacist Medication Therapy Management: Minimum frequency patient should be seen in person for medication management: as appropriate per clinical condition and patient status By my signature, I understand that my patient Jhon Nelson will have his medication therapy managed by the [facility] ([facility]) per established policies, procedures, and protocols. I also certify that this referral may serve as an initiation of service for the management of drug therapy in the above noted patient. [facility] providers will be responsible for scheduling patient visits, obtaining appropriate laboratory studies, and adjusting medication management therapy per patient's need, in addition to those roles spelled out in the clinic policy, procedures, and drug management protocols. I understand that the service provided by the [facility] is voluntary and have informed patient that they can refuse the service at their discretion. I am aware that the [facility] will provide me with a copy of the patient encounter via my [employer]. I authorize the [facility] to carry out these activities on my behalf. I consider this program to be a necessary part of the patient's medical care. Lokesh Amin MD Reason for Visit * Reason Comments Follow Up 6 month return. Pt d enied any new concerns Encounter Details Date Type Department Care Team (Late st Contact Info) Description 03/27/2024 12:00 PM EDT Office Visit General Internal Medicine [facility] [place] [address] [facility] [place] [address] Lokesh Amin MD [address] [place] [address] Basal cell carcinoma (BCC) of skin of left ear and external auditory canal*; Type 2 diabetes mellitus with hemoglobin A1c goal of less than 8.0% ([facility]); HTN, goal below 140/90; Stage 3a chronic kidney disease ([facility]); Chronic diastolic congestive heart failure ([facility]); Hypogonadism, male; PAF (paroxysmal atrial fibrillation) ([facility]); DM type 2 nursing care encounter ([facility]); S/P AVR (aortic valve replacement); Encounter for long-term (current) use of medications; Nocturia Allergies Active Allergy Reactions Criticality Noted Date Comments Demerol Neuro complications (Please comment) High 06/14/2010 confusion Adhesive Tape Rash Low 06/14/2010 documented as of this encounter (statuses as of 04/04/2024) Medications Medication Sig Dispensed Refills Start Date End Date Status GINKOBA 40 MG OR TABS 0 05/10/2004 Active OMEGA MG OR CAPS daily 0 01/17/2005 Active GLUCOSAMINE CHONDROITIN OR TABSIndications:Pa in in limb tid 90 5 08/08/2005 Active Additional Information Patient taking differently:OralDaily(AM), Informant: Patient, Reported on 05/17/2023 VITAMIN C 500 MG PO TABS 1 TABLET DAILY 0 08/15/2006 Active CALCIUM CITRATE + D 315-200 MG-UNIT PO TABS one tab daily Active COLACE 100 MG PO CAPSIndications:In testinal obstruction (HCC) one cap daily 12/23/2010 Acti ve Cholecalciferol (VITAMIN D) 1000 units Tablet Take [...] Oral Tablet Take by mouth. Ac tive Fluorouracil 5 % External Cream (Efudex) Apply [...] mRNA, LNP-s, No Pre serve, 2-Dose Series ([employer]) 06/29/2021,12/15/2020,11/24/2020 COVID-19, LNP-s, No Preserve , Deric-sucrose, [...] encounter Patient Instructions * Patient Instructions* Radhika Staley, MED ASSIST - 03/27/2024 12:12 PM EDT Diabetes: Keeping [...] calluses yourself. Talk to your doctor or virginia line attendant (a doctor who specializes in foot care) [...] the area doesnt appear to be healing. 2081-2100 [employer], [address] [place] [address], [place] [address]. All rights reserved. This information is not [...] Heart failure, diastolic, due to HTN ([facility]) S/P AVR (aortic valve replacement) Left carotid stenosis Stage 3a chronic kidney disease Cardiac pacemaker in situ PAF (paroxysmal atrial fibrillation) ([facility]) Type 2 diabetes mellitus with hemoglobin A1c goal of less than 8.0% ([facility]) Chronic diastolic congestive heart failure ([facility]) Basal cell carcinoma (BCC) of skin [...] Solution Reconstituted (RSV Pre-Fusion F A&B Vac [facility]) as directed (Patient not taking: Reported on [...] Month Justen Ewing DO 100 mg at 03/04/24 1517 Review [...] file Occupational History 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[employer] Employer: [place] [address] Tobacco Use Smoking status: Former Types: Cigars [...] Shilpa 1 year Blood Transfusions Yes Comment: [id number] Caffeine Concern Yes Comment: lots of coffee 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[employer] No Sleep Concern No Stress [...] mass, 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 Bowel obstruction ([facility]) Cardiac pacemaker in situ 11/19/2020 Diverticulitis of colon Glaucoma 01/30/2007 dr rivas HTN, goal below 140/90 12/11/2018 Impotence of organic origin Left carotid stenosis 08/18/2020 PAF (paroxysmal atrial fibrillation) ([facility]) 02/01/2022 Panniculitis 03/07/2012 Type 2 diabetes mellitus with hemoglobin A1c goal of less than 8.0% ([facility]) 08/24/2022 Past Surgical History: Procedure Laterality Date COLONOSCOPY 11/18/2005 Normal repeat in 10 years COLONOSCOPY, DIAGNOSTIC (RECTUM) 01/21/2016 diverticulosis, repeat 10 yrs/COLONOSCOPY FLEXIBLE PROXIMAL DIAGNOSTIC performed by Steve Bahena MD at [facility] COLONOSCOPY, DIAGNOSTIC (RECTUM) 05/19/2023 dvierticulosis / COLONOSCOPY FLEXIBLE PROXIMAL DIAGNOSTIC performed by Freddy Arthur MD at [facility] CYSTOSCOPY 02/26/2013 CYSTOSCOPY 08/05/2014 CYSTOSCOPY 12/26/2014 CYSTOSCOPY/DILATE [...] HERNIA performed by Adryan Kunz MD at [facility] MUSCLE-SKIN FLAP, TRUNK 10/18/2011 MUSCLE MYOCUTANEOUS OR FASCIOCUTANEOUS FLAP TRUNK performed by NANCY GARCIA at [facility] MUSCLE-SKIN FLAP, TRUNK 10/25/2011 MUSCLE MYOCUTANEOUS OR FASCIOCUTANEOUS FLAP TRUNK performed by NANCY GARCIA at [facility] PARTIAL REMOVAL OF COLON REMOVAL OF APPENDIX REMOVAL OF PROSTATE (TURP) 01/27/2015 TRANSURETHRAL RESECTION PROSTATE ELECTROSURGICAL performed by Colt North MD at [facility] REMOVAL OF TONSILS, UNDER AGE 12 REMOVE GALLBLADDER REPAIR INITIAL INCISIONAL OR VENTRAL HERNIA; REDUCIBLE 04/25/2011 REPAIR INITIAL INCISIONAL /VENTRAL HERNIA REDUCIBLE performed by [place] CHRISTINE at [facility]-not performed REPAIR INITIAL INCISIONAL OR VENTRAL HERNIA; REDUCIBLE 09/22/2011 REPAIR INITIAL INCISIONAL /VENTRAL HERNIA REDUCIBLE performed by [place] CHRISTINE at [facility] REPAIR INITIAL INCISIONAL OR VENTRAL HERNIA; REDUCIBLE 10/25/2011 REPAIR INITIAL INCISIONAL /VENTRAL HERNIA REDUCIBLE performed by [place] CHRISTINE at [facility] REPAIR INITIAL INCISIONAL OR VENTRAL HERNIA; REDUCIBLE 08/14/2012 REPAIR INITIAL INCISIONAL /VENTRAL HERNIA REDUCIBLE performed by Adryan Kunz MD at [facility] REPLACEMENT AORTIC VALVE, BYPASS WITH PROSTHETIC VALVE N/A 07/10/2020 REPLACEMENT AORTIC VALVE, BYPASS WITH PROSTHETIC VALVE performed by Ag Ballesteros MD at [facility] TOTAL HIP REPLACEMENT & PROSTHESIS 11/04/2013 [...] Hypogonadism, male I48.0 PAF (paroxysmal atrial fibrillation) ([facility]) E11.9 DM type 2 nursing care encounter ([facility]) Z95.2 S/P AVR (aortic valve replacement) Z79.899 Encounter for long-term (current) use of medications R35.1 Nocturia PLAN: Basal cell carcinoma (BCC) of skin of left ear and external auditory canal (Primary) Appreciate MOHS/derm aid Type 2 diabetes mellitus with hemoglobin A1c goal of less than 8.0% ([facility]) - HEMOGLOBIN A1C; Future; Expected date: 03/27/2024 - HEMOGLOBIN A1C; Future; Expected date: 09/27/2024 Cont diet Recheck labs HTN, goal below 140/90 - COMPREHENSIVE METABOLIC PANEL; Future; Expected date: 09/27/2024 - LIPID PANEL WITH DIRECT LDL IF TG IS HIGH; Future; Expected date: 09/27/2024 Controlled Cont aldactone, lisinopril, metoprolol, lasix Stage 3a chronic kidney disease ([facility]) - RENAL FUNCTION PANEL; Future; Expected date: 03/27/2024 Labs today Chronic diastolic congestive heart failure (HCC) Euvolemic Cont med Cont f/u cardiology Hypogonadism, male - PSA; Future; Expected date: 09/27/2024 - CBC WITH WBC DIFFERENTIAL; Future; Expected date: 09/27/2024 Prefers to continue testosterone PAF (paroxysmal atrial fibrillation) ([facility]) Cont metoprolol, eliquis DM type 2 nursing care encounter ([facility]) - DIABETES FOOT EXAM S/P AVR (aortic [...] Next Visit Lokesh Amin MD * Radhika Staley, MED ASSIST - 03/27/2024 12:12 PM EDT [...] 04/04/2024 1:20 PM EDT Office Visit Pharmacy, [facility] [address] [facility] [place] [address] Pharmacist1, [facility] [address] [place] [address] 04/04/2024 2:00 PM EDT Nurse Only Ancillary [facility] [address] [facility] [place] [address] Nurse, Int Med [address] [place] [address] [address] 04/08/2024 1:30 PM EDT Office Visit Cardiology, [facility] [address] [facility] [place] [address] Fabian Mejia PA-C [address] [facility] [address] 04/09/2024 2:45 PM EDT Office Visit MOHS Surgery [facility] [address] [facility] [address] [place], [place] [address] Becky Gordon MD [address] [facility] [place] [address] 11/14/2024 2:00 PM EST Office Visit General Internal Medicine [facility] [address] [place] [address] [address] Lokesh Amin MD [address] [facility] [place] [address] 03/18/2025 10:45 AM EDT Office Visit Dermatology [facility] [address] [place] [address] Lokesh Mayen MD [address] [facility] [place] [address] Scheduled Orders Name Type Priority Associated Diagnoses Orde r Schedule COMPREHENSIVE METABOLIC PANEL Lab Routine HTN, goal below 140/90 Expected: 09/27/2024 (Approximate), Expires: 03/27/2025 LIPID PANEL WITH DIRECT LDL IF TG IS HIGH Lab Routine HTN, goal below 140/90 Expected: 09/27/2024, Expires: 03/27/2025 PSA Lab Routine Hypogonadism, male Nocturia Expected: 09/27/2024 (Approximate), Expires: 03/27/2025 CBC WITH WBC DIFFERENTIAL Lab Routine Hypogonadism, male Expected: 09/27/2024 (Approximate), Expires: 03/27/2025 VITAMIN B12 Lab Routine Encounter for long-term (current) use of medications Expected: 09/27/2024 (Approximate), Expires: 03/27/2025 MAGNESIUM Lab Routine Encounter for long-term (current) use of medications Expected: 09/27/2024 (Approximate), Expires: 03/27/2025 HEMOGLOBIN A1C Lab Routine Type 2 diabetes mellitus with hemoglobin A1c goal of less than 8.0% (HCC) Expected: 09/27/2024 (Approximate), Expires: 03/27/2025 BASIC METABOLIC PANEL Lab Routine Type 2 diabetes mellitus with hemoglobin A1c goal of less than 8.0% (HCC) Expected: 04/11/2024 (Approximate), Expires: 04/04/2025 Scheduled Procedures Name Priority Associated Diagnoses Date/Ti [...] Additional history exists CKD HGB USE SMARTSET 38957 10/27/202410/27, 10/27/2023, 09/26/2023, Additional history exists CKD PHOS USE SMARTSET 16091 03/27/2025 070 11/2023, 09/26/2023, 08/23/2022, Additional history [...] this encounter Medical Devices Implanted Type Area Commercial Loan Processor Device Identifier Shelf Expiration Date Model / Serial / Lot Strattice [id number] (400 Units) - [id number] Implanted:Qty : 400 on 10/25/2011 at [place] [facility] Abdomen LIFE CE[employer] MISTY 12/23/2012 [id number] / / [id number] Mesh Prolit Hernia [id number] - [id number] Implanted:Qty : 1 on 08/14/2012 at [facility] Left: Abdomen [employer] 12/24/2015 [id number] / / [id number] Suture Steel 6 [id number]&S19 M654g - [id number] Implanted:Qty : 3 on 07/10/2020 by Ag Ballesteros MD at [facility] N/A: Sternum JNJ : [employer] 02/22/2025 [id number] / / [id number] Valve Heart Aortic Epic 23mm - [id number] - [id number] Implanted:Qty : 1 on 07/10/2020 by Ag Ballesteros MD at [facility] N/A: Aorta ST DOMINIK : CARDIOVASCULAR [id number] 03/22/2024 [id number] / [id number] / [id number] documented as of this encounter Results * (ABNORMAL) BASIC METABOLIC PANEL (04/03/2024 2:47 PM EDT) BUN 19 6 - 20 mg/dL 04/03/2024 4:23 PM EDT [place] [address] Creatinine 1.2 0.6 - 1.2 mg/dL 04/03/2024 4:23 PM EDT [place] [address] Estimated Glomerular Filtration Rate 64 >=60 mL/min 04/03/2024 4:23 PM EDT [address] Comment:eGFR is calculated b ased on the CKD-EPI 2020 equation Sodium 131(L) 135 - 146 mmol/L 04/03/2024 4:23 PM EDT [address] Potassium 4.0 3.5 - 5.1 mmol/L 04/03/2024 4:23 PM EDT [facility] 56 Chloride 93(L) 98 - 107 mmol/L 04/03/2024 4:23 PM EDT [address] CO2 22 22 - 32 mmol/L 04/03/2024 4:23 PM EDT [address] Anion Gap 16(H) 7 - 15 mmol/L 04/03/2024 4:23 PM EDT [facility] 56 Glucose 471(H) 70 - 120 mg/dL 04/03/2024 4:23 PM EDT [facility] 56 Calcium 9.4 8.4 - 10.2 mg/dL 04/03/2024 4:23 PM EDT [facility] 56 Blood Venous blood specimen / Unknown Venipuncture / Unknown 04/03/2024 2:47 PM EDT 04/03/2024 2:47 PM EDT Lokesh Amin MD LAB BLOOD [facility] [address] [place] [address] * (ABNORMAL) HEMOGLOBIN A1C (03/27/2024 12:34 PM EDT) Hemoglobin A1C 12.4(H) 4.0 - 5.6 % 03/27/2024 7:40 PM EDT [facility] Comment:The use of HbA1c to monitor glycemic status is based on normal hemoglobin and HbA composition. This test should not be used in patients with abnormal hemoglobin that affects the half life of the red blood cell or the in vivo glycation rates. Estimated Average Glucose 309(H) <126 mg/dL 03/27/2024 7:40 PM EDT [facility] Blood Venous blood specimen / Unknown Venipuncture / Unknown 03/27/2024 12:34 PM EDT 03/27/2024 12:34 PM EDT Lokesh Amin MD LAB BLOOD [facility] [address] [place] [address] * (ABNORMAL) RENAL FUNCTION PANEL (03/27/2024 12:34 PM EDT) BUN 14 6 - 20 mg/dL 03/27/2024 2:18 PM EDT [facility] 56 Creatinine 1.3(H) 0.6 - 1.2 mg/dL 03/27/2024 2:18 PM EDT [facility] 56 Estimated Glomerular Filtration Rate 55(L) >=60 mL/min 03/27/2024 2:18 PM EDT [facility] 56 Comment:eGFR is calculated b ased on the CKD-EPI 2020 equation Sodium 132(L) 135 - 146 mmol/L 03/27/2024 2:18 PM EDT [facility] 56 Potassium 4.1 3.5 - 5.1 mmol/L 03/27/2024 2:18 PM EDT [facility] 56 Chloride 92(L) 98 - 107 mmol/L 03/27/2024 2:18 PM EDT [place] [address] CO2 26 22 - 32 mmol/L 03/27/2024 2:18 PM EDT [place] [address] Anion Gap 14 7 - 15 mmol/L 03/27/2024 2:18 PM EDT [place] [address] Glucose 459(H) 70 - 120 mg/dL 03/27/2024 2:18 PM EDT [place] [address] Calcium 10.1 8.4 - 10.2 mg/dL 03/27/2024 2:18 PM EDT [place] [address] Albumin 4.3 3.8 - 5.0 g/dL 03/27/2024 2:18 PM EDT [place] [address] Phosphorus 3.2 2.5 - 4.8 mg/dL 03/27/2024 2:18 PM EDT [place] [address] Blood Venous blood specimen / Unknown Venipuncture / Unknown 03/27/2024 12:34 PM EDT 03/27/2024 12:34 PM EDT Lokesh Amin MD LAB BLOOD [facility] [address] [place] [address] documented in this encounter Visit Diagnoses Diagnosis Basal cell carcinoma (BCC) of skin of left ear and external auditory canal- Primary Type 2 diabetes mellitus with hemoglobin A1c goal of less than 8.0% ([facility]) HTN, goal below 140/90 Unspecified essential hypertension Stage 3a chronic kidney disease ([facility]) Chronic diastolic congestive heart failure (HCC) Chronic diastolic heart failure Hypogonadism, male Other testicular hypofunction PAF (paroxysmal atrial fibrillation) (HCC) Atrial fibrillation DM type 2 nursing care encounter ([facility]) Type II or unspecified type diabetes mellitus without mention of complication, not stated as uncontrolled S/P AVR (aortic valve replacement) Heart valve replaced by other means Encounter for long-term (current) use of medications Encounter for long-term (current) use of other medications Nocturia documented in this encounter Advance Directives * [...] and were consensually agreed upon. Care Teams Recyclable Materials Sorter Relationship Specialty Start Date End Date Lokesh Amin MD [address] [place] [address] PCP - General Internal Medicine 07/22/21 documented as of this encounter
--- OUTSIDE RECORDS SUMMARY | 2024-07-19 11:41 | External Medical Summary ---
Author Name Unknown Address Unknown Organization K09:[facility] [place] [address] Laboratory Report Ordering Provider Test Date Status COREY JARAMILLO 04/03/2024 14:47:28 Final Observation Date Value Abnormality Reference (Units ) Status BUN 04/03/2024 14:47:28 19 6-20 (mg/dL) Final Creatinine 04/03/2024 14:47:28 1.2 0.6-1.2 (mg/dL) Final Glomerular filtration rate/1.73 sq M.predicted [Volume Rate/Area] in Serum, Plasma or Blood by Creatinine-based formula (CKD-EPI) 04/03/2024 14:47:28 64 >=60 (mL/min) Final eGFR is calculated based on the CKD-EPI 2020 equation Sodium 04/03/2024 14:47:28 131 Below low normal 135 -146 (mmol/L) Final Potassium 04/03/2024 14:47:28 4.0 3.5-5.1 (m mol/L) Final Cl 04/03/2024 14:47:28 93 Below low normal 98- 107 (mmol/L) Final CO2 04/03/2024 14:47:28 22 22-32 (mmo l/L) Final Anion gap 04/03/2024 14:47:28 16 Above high normal 7- 15 (mmol/L) Final Glucose 04/03/2024 14:47:28 471 Above high normal 70 -120 (mg/dL) Final Calcium 04/03/2024 14:47:28 9.4 8.4-10.2 ( mg/dL) Final Performing Location [facility] [place] [address]
--- OUTSIDE RECORDS SUMMARY | 2024-07-19 11:41 | External Medical Summary | Summary of Care ---
Author Name Unknown Organization [facility] Address [address] [place] [address] Phone [phone] Care Team Providers Care Microsoft Bi Architect Name Role Phone Lokesh Amin MD Primary Care Provider + Reason for Referral * Evaluate & Treat - Unlimited Visits (Within 3 days (urgent)) - Authorized Specialty Diagnoses / Procedures Referred By Contsonal t Referred To Contact Pharmacist / Pharmacy Diagnoses Type 2 diabetes mellitus with hemoglobin A1c goal of less than 8.0% ([facility]) Lokesh Amni MD [address] [place] [address] Referral ID Status Reason Start Date Expiration Date Visits Requested Visits Authorized [id number] Authorized Specialty Services Required 03/28/2024 09/24/2024 99 99 Question Answer Referral Priority Within 3 days (urgent) Where should this appointment be scheduled? [facility] Referring Provider Role: Primary Care Reason for Referral: DM Target A1c: < 8 Comments Pharmacist Medication Therapy Management: Minimum frequency patient should be seen in person for medication management: as appropriate per clinical condition and patient status By my signature, I understand that my patient Jhon Nelson will have his medication therapy managed by the [facility] Medication Therapy Disease Management Clinic ([facility]) per established policies, procedures, and protocols. I also certify that this referral may serve as an initiation of service for the management of drug therapy in the above noted patient. [facility] providers will be responsible for scheduling patient visits, obtaining appropriate laboratory studies, and adjusting medication management therapy per patient's need, in addition to those roles spelled out in the clinic policy, procedures, and drug management protocols. I understand that the service provided by the [facility] Clinic is voluntary and have informed patient that they can refuse the service at their discretion. I am aware that the [facility] Clinic will provide me with a copy of the patient encounter via my [facility]. I authorize the [facility] Clinic to carry out these [...] PM EDT Office Visit General Internal Medicine [facility] [place] [address] [facility] [place] [address] Lokesh Amin MD 200 [place] [address] Basal cell carcinoma (BCC) of skin of left ear and external auditory canal*; Type 2 diabetes mellitus with hemoglobin A1c goal of less than 8.0% ([facility]); HTN, goal below 140/90; Stage 3a chronic kidney disease ([facility]); Chronic diastolic congestive heart failure ([facility]); Hypogonadism, male; PAF (paroxysmal atrial fibrillation) ([facility]); DM type 2 nursing care encounter ([facility]); S/P AVR (aortic valve replacement); Encounter for long-term (current) use of medications; Nocturia; Decreased GFR Allergies Active Allergy Reactions Criticality [...] mRNA, LNP-s, No Pre serve, 2-Dose Series (WebAction) 06/29/2021,12/15/2020,11/24/2020 COVID-19, LNP-s, No Preserve , Deric-sucrose, Ages 12+ (Pfizer) 02/04/2022 COVID-19, MRNA-LNP, 23-24, P F, 30 MCG/0.3 mL, 12 YRS AND ABOVE, IM ([employer]) 10/10/2023 Covid-19, Mrna, Lnp-s, Pf, B ivalent, [...] Instructions * Patient Instructions* Radhika Staley MED ASSIST - 03/27/2024 12:12 [...] calluses yourself. Talk to your doctor or flatwork feeder (a doctor who specializes in foot care) [...] the area doesnt appear to be healing. [id number] [email or web address], [address] [place] [address], [place] [address]. All rights reserved. 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 [employer] No Sleep Concern No Stress [...] Diagnosis Date Acute pancreatitis Adrenal mass, 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 Bowel obstruction ([facility]) Cardiac pacemaker in situ 11/19/2020 Diverticulitis of colon Glaucoma 01/30/2007 dr rivas HTN, goal below 140/90 12/11/2018 Impotence of organic origin Left carotid stenosis 08/18/2020 PAF (paroxysmal atrial fibrillation) ([facility]) 02/01/2022 Panniculitis 03/07/2012 Type 2 diabetes mellitus with hemoglobin A1c goal of less than 8.0% ([facility]) 08/24/2022 Past Surgical History: Procedure Laterality Date COLONOSCOPY 11/18/2005 Normal repeat in 10 years COLONOSCOPY, DIAGNOSTIC (RECTUM) 01/21/2016 diverticulosis, repeat 10 yrs/COLONOSCOPY FLEXIBLE PROXIMAL DIAGNOSTIC performed by Steve Bahena MD at [facility] COLONOSCOPY, DIAGNOSTIC (RECTUM) 05/19/2023 dvierticulosis / COLONOSCOPY FLEXIBLE PROXIMAL DIAGNOSTIC performed by Freddy Arthur MD at [facility] CYSTOSCOPY 02/26/2013 CYSTOSCOPY 08/05/2014 CYSTOSCOPY 12/26/2014 CYSTOSCOPY/DILATE BLADDER N/A 01/27/2015 CYSTOURETHROSCOPY DILATION BLADDER GENERAL ANESTHESIA performed by Colt North MD at [facility] CYSTOSCOPY/TREAT MINOR LESION(S) N/A 01/27/2015 CYSTOURETHROSCOPY WITH FULGURATION MINOR BLADDER TUMOR performed by Colt North MD at OR [facility] IMPLANT MESH W/ ABD HERNIA REPR/DEBRIDE 08/14/2012 IMPLANTATION MESH WITH INCISIONAL/VENTRAL HERNIA performed by Adryan Kunz MD at [facility] MUSCLE-SKIN FLAP, TRUNK 10/18/2011 MUSCLE MYOCUTANEOUS OR FASCIOCUTANEOUS FLAP TRUNK performed by NANCY GARCIA at [facility] MUSCLE-SKIN FLAP, TRUNK 10/25/2011 MUSCLE MYOCUTANEOUS OR FASCIOCUTANEOUS FLAP TRUNK performed by NANCY GARCIA at OR [facility] PARTIAL REMOVAL OF COLON REMOVAL OF APPENDIX REMOVAL OF PROSTATE (TURP) 01/27/2015 TRANSURETHRAL RESECTION PROSTATE ELECTROSURGICAL performed by Colt North MD at OR [facility] REMOVAL OF TONSILS, UNDER AGE 12 REMOVE GALLBLADDER REPAIR INITIAL INCISIONAL OR VENTRAL HERNIA; REDUCIBLE 04/25/2011 REPAIR INITIAL INCISIONAL /VENTRAL HERNIA REDUCIBLE performed by NJ CHRISTINE at OR [facility]-not performed REPAIR INITIAL INCISIONAL OR VENTRAL HERNIA; REDUCIBLE 09/22/2011 REPAIR INITIAL INCISIONAL /VENTRAL HERNIA REDUCIBLE performed by NJ CHRISTINE at OR [facility] REPAIR INITIAL INCISIONAL OR VENTRAL HERNIA; REDUCIBLE 10/25/2011 REPAIR INITIAL INCISIONAL /VENTRAL HERNIA REDUCIBLE performed by [place] CHRISTINE at OR [facility] REPAIR INITIAL INCISIONAL OR VENTRAL HERNIA; REDUCIBLE 08/14/2012 REPAIR INITIAL INCISIONAL /VENTRAL HERNIA REDUCIBLE performed by Adryan Kunz MD at [facility] REPLACEMENT AORTIC VALVE, BYPASS WITH PROSTHETIC VALVE N/A 07/10/2020 REPLACEMENT AORTIC VALVE, BYPASS WITH PROSTHETIC VALVE performed by Ag Ballesteros MD at [facility] TOTAL HIP REPLACEMENT & PROSTHESIS 11/04/2013 Right [...] Hypogonadism, male I48.0 PAF (paroxysmal atrial fibrillation) ([facility]) E11.9 DM type 2 nursing care encounter ([facility]) Z95.2 S/P AVR (aortic valve replacement) Z79.899 Encounter for long-term (current) use of medications R35.1 Nocturia PLAN: Basal cell carcinoma (BCC) of skin of left ear and external auditory canal (Primary) Appreciate MOHS/derm aid Type 2 diabetes mellitus with hemoglobin A1c goal of less than 8.0% ([facility]) - HEMOGLOBIN A1C; Future; Expected date: 03/27/2024 - HEMOGLOBIN A1C; Future; Expected date: 09/27/2024 Cont diet Recheck labs HTN, goal below 140/90 - COMPREHENSIVE METABOLIC PANEL; Future; Expected date: 09/27/2024 - LIPID PANEL WITH DIRECT LDL IF TG IS HIGH; Future; Expected date: 09/27/2024 Controlled Cont aldactone, lisinopril, metoprolol, lasix Stage 3a chronic kidney disease ([facility]) - RENAL FUNCTION PANEL; Future; Expected date: 03/27/2024 Labs today Chronic diastolic congestive heart failure (HCC) Euvolemic Cont med Cont f/u cardiology Hypogonadism, male - PSA; Future; Expected date: 09/27/2024 - CBC WITH WBC DIFFERENTIAL; Future; Expected date: 09/27/2024 Prefers to continue testosterone PAF (paroxysmal atrial fibrillation) ([facility]) Cont metoprolol, eliquis DM type 2 nursing care encounter ([facility]) - DIABETES FOOT EXAM S/P AVR (aortic [...] Description 04/11/2024 1:00 PM EDT Telemedicine Pharmacy, [facility] [address] [facility] [place] [address] Pharmacist1, [facility] 200 [facility] [place] [address] 04/26/2024 2:00 PM EDT Office Visit [facility] [address] [facility] [address] 05/06/2024 2:00 PM EDT Nurse Only Ancillary [facility] [address] [facility] [place] [address] Nurse, Int Med 200 [facility] [place] [address] 10/14/2024 3:00 PM EST Office Visit Cardiology, [facility] [address] [facility] [place] [address] Fabian Mejia PA-C [address] [place] [address] 11/14/2024 2:00 PM EST Office Visit General Internal Medicine [facility] [address] [facility] [place] [address] Lokesh Amin MD 200 [facility] [place] [address] 03/18/2025 10:45 AM EDT Office Visit Dermatology [facility] [address] [facility] [place] [address] Lokesh Mayen MD [address] [facility] [place] [address] Scheduled Orders Name Type Priority Associated Diagnoses [...] (Approximate), Expires: 03/27/2025 BASIC METABOLIC PANEL Lab STAT Decreased GFR Expected: 04/11/2024 (Approximate), Expires: 04/11/2025 Scheduled Procedures Name Priority Associated Diagnoses Date/Ti me COLONOSCOPY FLEXIBLE PROXIMAL DIAGNOSTIC Recall Colon cancer screening Scheduled Referrals Name Type Priority Associated Diagnoses Orde r Schedule PHARMACIST MEDS THERAPY MGMT REFERRAL OP Referral Within 3 days (urgent) Type 2 diabetes mellitus with hemoglobin A1c goal of less than 8.0% (HCC) Ordered: 03/28/2024 Health Maintenance Due Date Last Done Comments COVID-19 Vaccine (7 - 2023-24 season) 2023 10/10/2023, 03/02/2023, 02/04/2022, Additional history exists Influenza Vaccine (FLU shot) (#1) 2024 06/26/2023, 06/09/2022, 06/17/2021, Additional history exists Diabetic Eye Exam 08/01/2024 08/01/2023, , 07/25/2005 Albumin/Creatinine Ratio 09/26/2024 09/26/2023, 07/27 HbA1c 09/27/2024 03/27/2024, 10/2023, 02/28/2023, Additional history exists GFR 10/11/2024 04/10/2024, 03/25, 03/27/2024, Additional history exists CKD HGB USE SMARTSET 09449 10/27/202410/27, 10/27/2023, 09/26/2023, Additional history exists CKD PHOS USE SMARTSET 85537 03/27/2025 0711/2023, 09/26/2023, 08/23/2022, Additional history exists [...] this encounter Medical Devices Implanted Type Area Network Lead Device Identifier Shelf Expiration Date Model / Serial / Lot Omegattmagnolia [id number] (400 Units) - [id number] Implanted:Qty : 400 on 10/25/[address] [facility] Abdomen LIFE CELL MISTY 12/23/2012 [id number] / / [id number] Mesh Prolit Hernia [id number] - [id number] Implanted:Qty : 1 on 08/14/[address] [facility] Left: Abdomen [employer] MISTY 12/24/2015 [id number] / / [id number] Suture Steel 6 B&S19 M654g - [id number] Implanted:Qty : 3 on 07/10/2020 by Ag Ballesteros MD at OR [facility] N/A: Sternum JNJ : [employer] 02/22/2025 [id number] / / [id number] Valve Heart Aortic Epic 23mm - [id number] - [id number] Implanted:Qty : 1 on 07/10/2020 by Ag Ballesteros MD at OR [facility] N/A: Aorta ST DOMINIK : CARDIOVASCULAR [id number] 03/22/2024 [id number] / [id number] / [id number] documented as of this encounter Results * (ABNORMAL) BASIC METABOLIC PANEL (04/10/2024 3:16 [...] 15 mmol/L 04/10/2024 4:19 PM EDT [facility]10 Glucose 130(H) 70 - 120 mg/dL 04/10/2024 4:19 PM EDT [facility] Calcium 10.4(H) 8.4 - 10.2 mg/dL 04/10/2024 4:19 PM EDT [facility] Blood Venous blood specimen / Unknown Venipuncture / Unknown 04/10/2024 3:16 PM EDT 04/10/2024 3:16 PM EDT Lokesh Amin MD LAB BLOOD [facility]10 [address] [place] [address] * (ABNORMAL) BASIC METABOLIC PANEL (04/03/2024 2:47 PM EDT) BUN 19 6 - 20 mg/dL 04/03/2024 4:23 PM EDT [facility] 56 Creatinine 1.2 0.6 - 1.2 mg/dL 04/03/2024 4:23 PM EDT [facility] 56 Estimated Glomerular Filtration Rate 64 >=60 mL/min 04/03/2024 4:23 PM EDT [facility] 56 Comment:eGFR is calculated b ased on the CKD-EPI 2020 equation Sodium 131(L) 135 - 146 mmol/L 04/03/2024 4:23 PM EDT [facility] 56- Potassium 4.0 3.5 - 5.1 mmol/L 04/03/2024 4:23 PM EDT [facility] 56- Chloride 93(L) 98 - 107 mmol/L 04/03/2024 4:23 PM EDT [facility] 56- CO2 22 22 - 32 mmol/L 04/03/2024 4:23 PM EDT [facility] 56- Anion Gap 16(H) 7 - 15 mmol/L 04/03/2024 4:23 PM EDT [facility] Glucose 471(H) 70 - 120 mg/dL 04/03/2024 4:23 PM EDT [facility] Calcium 9.4 8.4 - 10.2 mg/dL 04/03/2024 4:23 PM EDT [facility] Blood Venous blood specimen / Unknown Venipuncture / Unknown 04/03/2024 2:47 PM EDT 04/03/2024 2:47 PM EDT Lokesh Amin MD LAB BLOOD [facility] [address] [place] [address] * (ABNORMAL) HEMOGLOBIN A1C (03/27/2024 12:34 PM EDT) Hemoglobin A1C 12.4(H) 4.0 - 5.6 % 03/27/2024 7:[address] [facility] Comment:The use of HbA1c to monitor glycemic status is based on normal hemoglobin and HbA composition. This test should not be used in patients with abnormal hemoglobin that affects the half life of the red blood cell or the in vivo glycation rates. Estimated Average Glucose 309(H) <126 mg/dL 03/27/2024 7:[address] [facility] Blood Venous blood specimen / Unknown Venipuncture / Unknown 03/27/2024 12:34 PM EDT 03/27/2024 12:34 PM EDT Lokesh Amin MD LAB BLOOD ORDERA [facility]ES [facility] [address] [facility] [place] [place] [address] * (ABNORMAL) RENAL FUNCTION PANEL (03/27/2024 12:34 PM EDT) BUN 14 6 - 20 mg/dL 03/27/2024 2:18 PM EDT [facility] 56 Creatinine 1.3(H) 0.6 - 1.2 mg/dL 03/27/2024 2:18 PM EDT [facility] 56 Estimated Glomerular Filtration Rate 55(L) >=60 mL/min 03/27/2024 2:18 PM EDT [facility] 56 Comment:eGFR is calculated b ased on the CKD-EPI 2020 equation Sodium 132(L) 135 - 146 mmol/L 03/27/2024 2:18 PM EDT [facility] 56 Potassium 4.1 3.5 - 5.1 mmol/L 03/27/2024 2:18 PM EDT [facility] 56 Chloride 92(L) 98 - 107 mmol/L 03/27/2024 2:18 PM EDT [address] CO2 26 22 - 32 mmol/L 03/27/2024 2:18 PM EDT [address] Anion Gap 14 7 - 15 mmol/L 03/27/2024 2:18 PM EDT [address] Glucose 459(H) 70 - 120 mg/dL 03/27/2024 2:18 PM EDT [address] Calcium 10.1 8.4 - 10.2 mg/dL 03/27/2024 2:18 PM EDT [address] Albumin 4.3 3.8 - 5.0 g/dL 03/27/2024 2:18 PM EDT [address] Phosphorus 3.2 2.5 - 4.8 mg/dL 03/27/2024 2:18 PM EDT [facility] 56 Blood Venous blood specimen / Unknown Venipuncture / Unknown 03/27/2024 12:34 PM EDT 03/27/2024 12:34 PM EDT Lokesh Amin MD LAB BLOOD [facility] BL[facility] [address] [place] [address] documented in this encounter Visit Diagnoses Diagnosis Basal cell carcinoma (BCC) of skin of left ear and external auditory canal- Primary Type 2 diabetes mellitus with hemoglobin A1c goal of less than 8.0% (HCC) HTN, goal below 140/90 Unspecified essential hypertension Stage 3a chronic kidney disease (HCC) Chronic diastolic congestive heart failure (HCC) Chronic diastolic heart failure Hypogonadism, male Other testicular hypofunction PAF (paroxysmal atrial fibrillation) (HCC) Atrial fibrillation DM type 2 nursing care encounter ([facility]) Type II or unspecified type diabetes mellitus [...] were consensually agreed upon. Care Teams Microsoft Bi Architect Relationship Specialty Start Date End Date Lokesh Amin MD 200 [place] [address] PCP - General Internal Medicine 07/22/21 documented as of this encounter
--- OUTSIDE RECORDS SUMMARY | 2024-07-19 11:41 | External Medical Summary | Summary of Care ---
Author Name Unknown Organization [facility] Address [address] [place] [address] Phone [phone] Care Team Providers Care [employer] Director Name Role Phone Lokesh Amin MD Primary Care Provider + Reason for Visit * Reason Onset Date Comments Abnormal Test Results 03/29/2024 A1C Encounter Details Date Type Department Care Team (Late st Contact Info) Description 03/29/2024 Telephone General Internal Medicine [facility] [address] Lokesh Amin MD 200 [facility] [place] [id number] Abnormal Test Results (A1C) Allergies Active Allergy Reactions Criticality Noted Date [...] Silver 50+Men Oral Tablet Take by mouth. [facility], or Other Facility Administered Medication Ordered [...] mRNA, LNP-s, No Pre serve, 2-Dose Series ([place]) 06/29/2021,12/15/2020,11/24/2020 COVID-19, LNP-s, No Preserve , Deric-sucrose, Ages 12+ (Pfizer) 02/04/2022 COVID-19, MRNA-LNP, 23-24, P F, 30 MCG/0.3 mL, 12 YRS AND ABOVE, IM ([facility]) 10/10/2023 Covid-19, Mrna, Lnp-s, Pf, B ivalent, 30 Mcg, IM, 12 yrs and above ([place]) 03/02/2023 Hepatitis B, 20+ yrs 2023,09/29/2023 Pneumococcal Conjugate Vacc, 13 Valent (Prevnar) 02/08/2016 [...] Encounter - Lokesh Amin MD - 04/04/2024 8:28 AM EDT See mtm today, will await their guidance * Telephone Encounter - Lokesh Amin MD - 04/02/2024 8:34 AM EDT Mtm, please see last A1c, referral, can he be seen very soon please as he is unsure if can inject * Telephone Encounter - Elysia Arenas LPN - 04/02/2024 8:32 AM EDT When Carina spoke with pt yesterday, pt was not too sure about it so would benefit from teaching * Telephone Encounter - Lokesh Amin MD - 04/01/2024 3:24 PM EDT I have pended insulin, glucometer, is he able to inject insulin and check sugars or does he need teaching? * Telephone Encounter - Carina Estrada MED ASSIST - 04/01/2024 12:04 PM EDT He states that he is agreeable to the insulin if that is what you prefer. He will need insulin and supplies as well as a leela and [facility] [address] [facility]. He does have appointment with [facility] today and will schedule with MTM while he is here. * Telephone Encounter - Lokesh Amin MD - 04/01/2024 10:49 AM EDT Given his markedly high sugar, and A1c, feel insulin is best here, pls make sure he scheduling withmtm as well! * Telephone Encounter - Carina Estrada MED ASSIST - 03/29/2024 2:37 PM EDT Spoke with patient. He states that he hasn't been on any steroid of any kind or had any diet changes/ He really does NOT want to do insulin injections. He would like to know if there is/are any pill(s)that you would be willing to try with him first? ----- Message from Lokesh Amin MD sent at 03/28/2024 2:29 PM EDT ----- 1. A1c shows diabetes is OUT OF CONTROL! His A1c jumped to 12.4 from 6.7 where <7.5 ideal. Has his diet changed or has been on prednisone? I feel it is likely time to start long acting insulin injection (lantus 10 units once a night) and check sugars, is he willing to check sugars/can he check sugars? Also, I want him to see mtm about poorly controlled diabetes to help better treat! 2. Sodium low, but could be from high sugar as sugar is now 459!! Recheck bmp 1 week to follow documented in this encounter Plan of Treatment Upcoming Encounters Date Type Department Care Team (Late st Contact Info) Description 04/04/2024 1:20 PM EDT Office Visit Pharmacy, [facility] 200 [facility] [place] [address] Pharmacist1, [facility] 200 [facility] [place] [address] 04/04/2024 2:00 PM EDT Nurse Only Ancillary [facility] 200 [facility] [place] [address] Nurse, Int Med [address] [facility] [place] [address] 04/08/2024 1:30 PM EDT Office Visit Cardiology, [facility] [address] [place] [address] Fabian Mejia PA-C [address] [place] [address] 04/09/2024 2:45 PM EDT Office Visit MOHS Surgery [facility] 200 [facility] [place] [address] Becky Gordon MD 200 [facility] [place] [address] 11/14/2024 2:00 PM EST Office Visit General Internal Medicine [facility] [address] [facility] [place] [address] Lokesh Amin MD 200 [facility] [place] [address] 03/18/2025 10:45 AM EDT Office Visit Dermatology [facility] [place] [address] [facility] [place] [address] Lokesh Mayen MD 200 [facility] [place] [address] Scheduled Procedures Name Priority Associated Diagnoses Date/Ti [...] 02/28/2023, Additional history exists GFR 10/04/2024 04/03/2024, 070 11/2023, 06/26/2023, Additional history exists CKD HGB USE SMARTSET 44635 10/27/202410/27, 10/27/2023, 09/26/2023, Additional history exists CKD PHOS USE SMARTSET 80016 03/27/2025 070 11/2023, 09/26/2023, 08/23/2022, Additional history [...] this encounter Medical Devices Implanted Type Area Equity Analyst Device Identifier Shelf Expiration Date Model / Serial / Lot Strattice [id number] (400 Units) - [id number] Implanted:Qty : 400 on 10/25/2011 at OR [facility] Abdomen LIFE CELL MISTY 12/23/2012 [id number] / / [id number] Mesh Prolit Hernia [id number] - [id number] Implanted:Qty : 1 on 08/14/2012 at OR [facility] Left: Abdomen [employer] MISTY 12/24/2015 [id number] / / [id number] Suture Steel 6 B&S19 M654g - [id number] Implanted:Qty : 3 on 07/10/2020 by Ag Ballesteros MD at OR [facility] N/A: Sternum JNJ : [employer] 02/22/2025 M654G / / [id number] Valve Heart Aortic Epic 23mm - [id number] - [id number] Implanted:Qty : 1 on 07/10/2020 by Ag Ballesteros MD at OR [facility] N/A: Aorta ST DOMINIK : CARDIOVASCULAR [id number] 03/22/2024 [id number] / [id number] / [id number] documented as of this encounter Visit Diagnoses Diagnosis Type 2 diabetes mellitus with hemoglobin A1c goal of less than 8.0% ([facility])- Primary documented in this encounter Advance Directives [...] and were consensually agreed upon. Care Teams [employer] Director Relationship Specialty Start Date End Date Lokesh Amin MD [address] [place] [address] PCP - General Internal Medicine 07/22/21 documented as of this encounter
--- OUTSIDE RECORDS SUMMARY | 2024-07-19 11:41 | External Medical Summary | Summary of Care ---
Author Name Unknown Organization [facility] Address [address] [place] [address] Phone [phone] Care Team Providers Care Senior Safety Management Consultant Name Role Phone Lokesh Amin MD Primary Care Provider + Reason for Visit * Reason Comments Outpatient Testing Encounter Details Date Type Department Care Team (Late st Contact Info) Description 04/03/2024 2:50 PM EDT Laboratory Laboratory [facility] [address] [place] [phone] [place], Lab Scenery [address] [place] [address] Type 2 diabetes mellitus with hemoglobin A1c goal of less than 8.0% ([facility]) Allergies Active Allergy Reactions Criticality Noted Date Comments Demerol Neuro complications (Please comment) High 06/14/2010 confusion Adhesive Tape Rash Low 06/14/2010 documented as of this encounter (statuses as of 04/03/2024) Medications Medication Sig Dispensed Refills Start Date [...] Silver 50+Men Oral Tablet Take by mouth. [facility] Hospital, Clinic, or Other Facility Administered Medication Ordered Dose Route Frequency Start Date End Date Status Testosterone Cypionate (Depotestosterone Cypionate) 200 MG/ML inj 100 mgIndications:Hypogonadism, male 100 mg IM QMONTH 01/11/2021 Active documented as of this encounter (statuses as of 04/03/2024) Active Problems Problem Noted Date Diagnosed Date [...] as of this encounter (statuses as of 04/03/2024) Resolved Problems Problem Noted Date Diagnosed Date [...] as of this encounter (statuses as of 04/03/2024) Immunizations Name Administration Dates Next Due COVID-19 mRNA, LNP-s, No Pre serve, 2-Dose Series ([employer]) 06/29/2021,12/15/2020,11/24/2020 COVID-19, LNP-s, No Preserve , Deric-sucrose, Ages 12+ (Pfizer) 02/04/2022 COVID-19, MRNA-LNP, 23-24, P F, 30 MCG/0.3 mL, 12 YRS AND ABOVE, IM ([facility] 10/10/2023 Covid-19, Mrna, Lnp-s, Pf, B ivalent, 30 Mcg, IM, 12 yrs and above ([employer]) 03/02/2023 Hepatitis B, 20+ yrs 04/01/2024,2023,01/05 /2024 [...] 04/04/2024 1:20 PM EDT Office Visit Pharmacy, [facility] [address] [place] [address] [address] Pharmacist1, [facility] [address] [place] [address] 04/04/2024 2:00 PM EDT Nurse Only Ancillary [facility] [address] [place] [address] [address] Nurse, Int Med [address] [place] [address] 04/08/2024 1:30 PM EDT Office Visit Cardiology, [facility] [address] [place] [address] Fabian Mejia PA-C [address] [place] [address] 04/09/2024 2:45 PM EDT Office Visit MOHS Surgery [facility] [address] [facility] [place] [address] Becky Gordon MD 200 [facility] [place] [address] 11/14/2024 2:00 PM EST Office Visit General Internal Medicine [facility] 200 [facility] [place] [address] Lokesh Amin MD 200 [facility] [place] [address] 03/18/2025 10:45 AM EDT Office Visit Dermatology [facility] 200 [facility] [place] [address] Lokesh Mayen MD 200 [facility] [place] [address] Pending Results Name Type Priority Associated Diagnoses Date /Time BASIC METABOLIC PANEL Lab Routine Type 2 diabetes mellitus with hemoglobin A1c goal of less than 8.0% ([facility]) 04/03/2024 2:47 PM EDT Scheduled Procedures Name Priority Associated Diagnoses Date/Ti me COLONOSCOPY FLEXIBLE PROXIMAL DIAGNOSTIC Recall Colon cancer screening Health Maintenance Due Date Last Done Comments COVID-19 Vaccine ( season) 2023 10/10/2023, 03/02/2023, 02/04/2022, Additional history exists Influenza Vaccine (FLU shot) (#1) 2024 06/26/2023, 06/09/2022, 06/17/2021, Additional history exists Diabetic Eye Exam 08/01/2024 08/01/2023, , 07/25/2005 Albumin/Creatinine Ratio 09/26/2024 09/26/2023, 07/27 GFR 09/27/2024 03/27/2024, 10/2022, 02/28/2023, Additional history exists HbA1c 09/27/2024 03/27/2024, 10/2023, 02/28/2023, Additional history exists CKD HGB USE SMARTSET 13254 10/27/202410/27, 10/27/2023, 09/26/2023, Additional history exists CKD PHOS USE SMARTSET 25154 03/27/202511/2023, 09/26/2023, 08/23/2022, Additional history exists Depression [...] this encounter Medical Devices Implanted Type Area Axle Polisher Device Identifier Shelf Expiration Date Model / Serial / Lot Strattice [id number] (400 Units) - [id number] Implanted:Qty : 400 on 10/25/2011 at OR [facility] Abdomen LIFE CELL MISTY 12/23/2012 [id number] / / [id number] Mesh Prolit Hernia [id number] - [id number] Implanted:Qty : 1 on 08/14/2012 at OR [facility] Left: Abdomen [employer] M[employer] 12/24/2015 [id number] / / [id number] Suture Steel 6 B&S19 M654g - [id number] Implanted:Qty : 3 on 07/10/2020 by Ag Ballesteros MD at OR [facility] N/A: Sternum JNJ : [employer] 02/22/2025 M654G / / [id number] Valve Heart Aortic Epic 23mm - [id number] - [id number] Implanted:Qty : 1 on 07/10/2020 by Ag Ballesteros MD at OR [facility] N/A: Aorta ST DOMINIK : CARDIOVASCULAR [id number] 03/22/2024 [id number] / [id number] / [id number] documented as of this encounter Visit Diagnoses Diagnosis Type 2 diabetes mellitus with hemoglobin A1c goal of less than 8.0% ([facility]) documented in this encounter Advance Directives * [...] were consensually agreed upon. Care Teams Senior Safety Management Consultant Relationship Specialty Start Date End Date Lokesh Amin MD 200 [place] [address] PCP - General Internal Medicine 07/22/21 documented as of this encounter
--- OUTSIDE RECORDS SUMMARY | 2024-07-19 11:42 | External Medical Summary | Summary of Care ---
Author Name Unknown Organization [facility] Address [address] [place] [address] Phone [phone] Care Team Providers Care Biodiesel Technology Manager Name Role Phone Lokesh Amin MD Primary Care Provider + Encounter Details Date Type Department Care Team (Late st Contact Info) Description 04/01/2024 2:00 PM EDT Nurse Only Ancillary [facility] [place] [address] [place] [phone] [facility] [address] Arrived Allergies Active Allergy Reactions Criticality Noted Date Comments Demerol Neuro complications (Please comment) High 06/14/2010 confusion Adhesive Tape Rash Low 06/14/2010 documented as of this encounter (statuses as of 04/01/2024) Medications Medication Sig Dispensed Refills Start Date [...] Silver 50+Men Oral Tablet Take by mouth. [facility], Clinic, or Other Facility Administered Medication Ordered Dose Route Frequency Start Date End Date Status Testosterone Cypionate (Depotestosterone Cypionate) 200 MG/ML inj 100 mgIndications:Hypogonadism, male 100 mg IM QMONTH 01/11/2021 Active documented as of this encounter (statuses as of 04/01/2024) Active Problems Problem Noted Date Diagnosed Date [...] as of this encounter (statuses as of 04/01/2024) Resolved Problems Problem Noted Date Diagnosed Date [...] as of this encounter (statuses as of 04/01/2024) Immunizations Name Administration Dates Next Due COVID-19 mRNA, LNP-s, No Pre serve, 2-Dose Series ([employer]) 06/29/2021,12/15/2020,11/24/2020 COVID-19, LNP-s, No Preserve , Deric-sucrose, Ages 12+ (Pfizer) 02/04/2022 COVID-19, MRNA-LNP, 23-24, P F, 30 MCG/0.3 mL, 12 YRS AND ABOVE, IM ([employer]) 10/10/2023 Covid-19, Mrna, Lnp-s, Pf, B ivalent, 30 Mcg, IM, 12 yrs and above ([employer]) 03/02/2023 Hepatitis B, 20+ yrs 04/01/2024,2023,09/29 Pneumococcal [...] Description 04/01/2024 3:00 PM EDT Office Visit MOHS Surgery [facility] [place] [address] [facility] [address] [place] [address] Becky Gordon MD [address] [place] [address] Arrived 04/04/2024 2:00 PM EDT Nurse Only Ancillary [facility] [place] [address] [place] [address] [address] Nurse, Int Med [address] [facility] [place] [address] 04/08/2024 1:30 PM EDT Office Visit Cardiology, [facility] [address] [place] [address] Fabian Mejia PA-C [address] [place] [address] 11/14/2024 2:00 PM EST Office Visit General Internal Medicine [facility] 200 [facility] [place] [address] Lokesh Amin MD 200 [facility] [place] [address] 03/18/2025 10:45 AM EDT Office Visit Dermatology [facility] 200 [facility] [place] [address] Lokesh Mayen MD 200 [facility] [place] [address] Scheduled Procedures Name Priority Associated Diagnoses Date/Ti [...] Additional history exists CKD HGB USE SMARTSET 48808 10/27/202410/27, 10/27/2023, 09/26/2023, Additional history exists CKD PHOS USE SMARTSET 11325 03/27/2025 07/0 11/2023, 09/26/2023, 08/23/2022, Additional history [...] this encounter Medical Devices Implanted Type Area Grinding Machine Tender Device Identifier Shelf Expiration Date Model / Serial / Lot Strattice [id number] (400 Units) - [id number] Implanted:Qty : 400 [place] 10[place]25/[place] [facility]dom[place] LIFE CELL MISTY 12/23/2012 [id number] / / [id number] Mesh Prolit Hernia [id number] - [id number] Implanted:Qty : 1 on 08/14/2012 [place] [facility] Left: Abdomen [employer] M[employer] 12/24/2015 [id number] / / [id number] Suture Steel 6 B&S19 M654g - [id number] Implanted:Qty : 3 on 07/10/2020 by Ag Ballesteros [place] [facility] N/A: Sternum JNJ : [employer] 02/22/2025 M654G / / [id number] Valve Heart Aortic Epic 23mm - [id number] - [id number] Implanted:Qty : 1 on 07/10/2020 by Ag Ballesteros MD [place] [facility] N/A: Aorta ST DOMINIK : CARDIOVASCULAR [id number] 03/22/2024 [id number] / [id number] / [id number] documented as of this encounter Visit Diagnoses Diagnosis Need for hepatitis B vaccination- Primary Need for prophylactic vaccination and inoculation against viral hepatitis documented in this encounter Advance Directives * [...] and were consensually agreed upon. Care Teams Biodiesel Technology Manager Relationship Specialty Start Date End Date Lokesh Amin MD [address] [place] [address] PCP - General Internal Medicine 07/22/21 documented as of this encounter
--- OUTSIDE RECORDS SUMMARY | 2024-07-19 11:42 | External Medical Summary | Summary of Care ---
Author Name Unknown Organization [facility] Address [address] [place] [address] Phone [phone] Care Team Providers Care Community Support Worker Name Role Phone Lokesh Amin MD Primary Care Provider + Encounter Details Date Type Department Care Team (Late st Contact Info) Description 04/01/2024 Orders Only PATIENT PORTAL DO NOT DELETE THIS DEPT USED BY [place] [id number] Allergies Active Allergy Reactions Criticality Noted Date [...] Silver 50+Men Oral Tablet Take by mouth. [facility], Clinic, or Other Facility Administered Medication [...] mRNA, LNP-s, No Pre serve, 2-Dose Series ([employer] 06/29/2021,12/15/2020,11/24/2020 COVID-19, LNP-s, No Preserve , Deric-sucrose, Ages 12+ (Pfizer) 02/04/2022 COVID-19, MRNA-LNP, 23-24, P F, 30 MCG/0.3 mL, 12 YRS AND ABOVE, IM ([employer]-Comirnaty) 10/10/2023 Covid-19, Mrna, Lnp-s, Pf, B ivalent, 30 Mcg, IM, 12 yrs and above (Pfizer) 03/02/2023 Hepatitis B, 20+ yrs 2023,09/29/2023 Pneumococcal [...] 04/01/2024 2:00 PM EDT Nurse Only Ancillary [facility] [place] [address] [place] [address] Nurse, Int Med [address] [facility] [place] [address] 04/01/2024 3:00 PM EDT Office Visit MOHS Surgery [facility] [place] [address] [place] [place] [address] Becky Gordon MD [address] [place] [address] 04/04/2024 2:00 PM EDT Nurse Only Ancillary [facility] [place] [address] [place] [address] Nurse, Int Med 200 [facility] [place] [place] [address] 04/08/2024 1:30 PM EDT Office Visit Cardiology, [facility] [address] [place] [address] Fabian Mejia PA-C [address] [place] [address] 11/14/2024 2:00 PM EST Office Visit General Internal Medicine [facility] [place] 200 [facility] [place] [address] Lokesh Amin MD 200 [facility] [place] [address] 03/18/2025 10:45 AM EDT Office Visit Dermatology [facility] [place] 200 [facility] [place] [address] Lokesh Mayen MD 200 [facility] [place] [address] Scheduled Procedures Name Priority Associated Diagnoses Date/Ti me COLONOSCOPY FLEXIBLE PROXIMAL DIAGNOSTIC Recall Colon cancer screening Health Maintenance Due Date Last Done Comments COVID-19 Vaccine (2022- season) 2023 10/10/2023, 03/02/2023, 02/04/2022, Additional history exists Hepatitis B Vaccine (3 of 3 - 19+ 3-dose series) 03/29/2024 2023, 09/29/2023 Influenza Vaccine (FLU shot) (#1) 2024 06/26/2023, 06/09/2022, 06/17/2021, Additional history exists Diabetic Eye Exam 08/01/2024 08/01/2023, , 07/25/2005 Albumin/Creatinine Ratio 09/26/2024 09/26/2023, 07/27 GFR 09/27/2024 03/27/2024, 10/2022, 02/28/2023, Additional history exists HbA1c 09/27/2024 03/27/2024, 10/2023, 02/28/2023, Additional history exists CKD HGB USE SMARTSET 62358 10/27/202410/27, 10/27/2023, 09/26/2023, Additional history exists CKD PHOS USE SMARTSET 45886 03/27/202511/2023, 09/26/2023, 08/23/2022, Additional history exists Depression Screening 03/27/2025 03/27/2024 Diabetic Foot Exam 03/27/2025 03/27/2024, 02/21/2023 DTaP,Tdap,and Td Vaccines (3 - Td or Tdap) 09/07/2029 09/07/2019, 08/24/2009 Pneumococcal Vaccine: 65+ Years Completed 02/08/2016, 02/08/2012, 08/18/2004 Zoster Vaccines Completed 10/09/2020, 03/04/2020 HPV (Gardasil) Vaccine Aged Out No lo nger eligible based on patient's age to complete this topic MENINGOCOCCAL (MENACTRA/MENVEO) Aged Out No longer eligible based on patient's age to complete this topic documented as of this encounter Medical Devices Implanted Type Area It Assistant Device Identifier Shelf Expiration Date Model / Serial / Lot Strattice [id number] (400 Units) - [id number] Implanted:Qty : 400 [place] 10[place]25[place] [facility] [place] LIFE CELL MISTY 12/23/2012 [id number] / / [id number] Mesh Prolit Hernia [id number] - [id number] Implanted:Qty : 1 on 08/14/2012 [place] [facility] [place]: Abdomen [employer] M[employer] 12/24/2015 [id number] / / [id number] Suture Steel 6 B&S19 M654g - [id number] Implanted:Qty : 3 on 07/10/2020 by Ag Ballesteros MD [place] [facility] [place]/A: Sternum JNJ : [employer] 02/22/2025 M654G / / [id number] Valve Heart Aortic Epic 23mm - [id number] - [id number] Implanted:Qty : 1 on 07/10/2020 by Ag Ballesteros MD [place] [facility] [place] N/A: Aorta ST DOMINIK : CARDIOVASCULAR [id number] 03/22/2024 [id number] / [id number] / [id number] documented as of this encounter Advance Directives [...] and were consensually agreed upon. Care Teams Community Support Worker Relationship Specialty Start Date End Date Lokesh Amin MD [address] [place] [address] PCP - General Internal Medicine 07/22/21 documented as of this encounter
--- OUTSIDE RECORDS SUMMARY | 2024-07-19 11:42 | External Medical Summary | Summary of Care ---
Author Name Unknown Organization [facility] Address [address] [place] [address] Phone [phone] Care Team Providers Care Medical Charge Entry Specialist Name Role Phone Lokesh Amin MD Primary Care Provider + Reason for Visit * Reason Comments Follow Up 6 month return. Pt d enied any new concerns Encounter Details Date Type Department Care Team (Late st Contact Info) Description 03/27/2024 12:00 PM EDT Office Visit General Internal Medicine [facility] [address] [facility] [place] [address] Lokesh Amin MD [address] [place] [address] Basal cell carcinoma (BCC) of skin of [...] as of this encounter (statuses as of 03/27/2024) Medications Medication Sig Dispensed Refills Start Date [...] as of this encounter (statuses as of 03/27/2024) Active Problems Problem Noted Date Diagnosed Date [...] as of this encounter (statuses as of 03/27/2024) Resolved Problems Problem Noted Date Diagnosed Date [...] as of this encounter (statuses as of 03/27/2024) Immunizations Name Administration Dates Next Due COVID-19 mRNA, LNP-s, No Pre serve, 2-Dose Series (Sudiksha) 06/29/2021,12/15/2020,11/24/2020 COVID-19, LNP-s, No Preserve , Deric-sucrose, Ages 12+ (Pfizer) 02/04/2022 COVID-19, MRNA-LNP, 23-24, P F, 30 MCG/0.3 mL, 12 YRS AND ABOVE, IM ([employer] [facility]) 10/10/2023 Covid-19, Mrna, Lnp-s, Pf, B ivalent, 30 Mcg, IM, 12 yrs and above (Sudiksha) 03/02/2023 Hepatitis B, 20+ yrs 2023,09/29/2023 Pneumococcal [...] Date Recorded PHQ Adult Total Score 0 08/23/2022 Hunger Vital Sign Answer Date Recorded Within [...] calluses yourself. Talk to your doctor or parts assembler (a doctor who specializes in foot care) [...] the area doesnt appear to be healing. [id number] [employer], [address] [place] [address], [place] [address]. All rights reserved. 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 Bowel obstruction ([facility]) [...] performed by Steve Bahena MD at ENDOSCOPY [facility] COLONOSCOPY, DIAGNOSTIC (RECTUM) 05/19/2023 dvierticulosis / COLONOSCOPY FLEXIBLE PROXIMAL DIAGNOSTIC performed by Freddy Arthur MD at ENDOSCOPY [facility] CYSTOSCOPY 02/26/2013 CYSTOSCOPY 08/05/2014 CYSTOSCOPY 12/26/2014 CYSTOSCOPY/DILATE BLADDER N/A 01/27/2015 CYSTOURETHROSCOPY DILATION BLADDER GENERAL ANESTHESIA performed by Colt North MD at OR [facility] CYSTOSCOPY/TREAT MINOR LESION(S) N/A 01/27/2015 CYSTOURETHROSCOPY WITH FULGURATION MINOR BLADDER TUMOR performed by Colt North MD at OR [facility] IMPLANT MESH W/ ABD HERNIA REPR/DEBRIDE 08/14/2012 IMPLANTATION MESH WITH INCISIONAL/VENTRAL HERNIA performed by Adryan Kunz MD at [facility] MUSCLE-SKIN FLAP, TRUNK 10/18/2011 MUSCLE MYOCUTANEOUS OR FASCIOCUTANEOUS FLAP TRUNK performed by NANCY GARCIA at [facility] MUSCLE-SKIN FLAP, TRUNK 10/25/2011 MUSCLE MYOCUTANEOUS OR FASCIOCUTANEOUS FLAP TRUNK performed by NANCY GARCIA at [place] [facility] PARTIAL REMOVAL OF COLON REMOVAL OF APPENDIX REMOVAL OF PROSTATE (TURP) 01/27/2015 TRANSURETHRAL RESECTION PROSTATE ELECTROSURGICAL performed by Colt North MD at OR [facility] REMOVAL OF TONSILS, UNDER AGE 12 [...] REDUCIBLE performed by Adryan Kunz MD at [facility] REPLACEMENT AORTIC VALVE, BYPASS WITH PROSTHETIC VALVE N/A 07/10/2020 REPLACEMENT AORTIC VALVE, BYPASS WITH PROSTHETIC VALVE performed by Ag Ballesteros MD at [facility] TOTAL HIP REPLACEMENT & PROSTHESIS 11/04/2013 [...] less than 8.0% ([facility]) I10 HTN, goal below 140/90 N18.31 Stage 3a chronic kidney disease ([facility]) I50.32 Chronic diastolic congestive heart failure ([facility]) E29.1 Hypogonadism, male I48.0 PAF (paroxysmal atrial [...] Foot Exam completed today. Provider aware. CHANDA iVcente Socks and Shoes Removed for Annual Diabetic [...] any new concerns documented in this encounter Plan of Treatment Upcoming Encounters Date Type Department Care Team (Late st Contact Info) Description 04/01/2024 2:00 PM EDT Nurse Only Ancillary [facility] [address] [place] [place] [address] Nurse, Int Med [address] [place] [address] 04/01/2024 3:00 PM EDT Office Visit MOHS Surgery [facility] [address] [place], [place] [address] Becky Gordon MD [address] [facility] [place] [address] 04/04/2024 2:00 PM EDT Nurse Only Ancillary [facility] [place] [address] [facility] [place] [address] Nurse, Int Med [address] [facility] [place] [address] 04/08/2024 1:30 PM EDT Office Visit Cardiology, [facility] [address] [facility] [place] [address] Fabian Mejia PA-C [address] [facility] [address] 11/14/2024 2:00 PM EST Office Visit General Internal Medicine [facility] [address] [facility] [place] [address] Lokesh Amin MD [address] [facility] [place] [address] 03/18/2025 10:45 AM EDT Office Visit Dermatology [facility] [place] [facility] [place] [address] Lokesh Mayen MD [address] [facility] [place], [place] [address] Pending Results Name Type Priority Associated Diagnoses Date /Time RENAL FUNCTION PANEL Lab Routine Stage 3a chronic kidney disease (HCC) 03/27/2024 12:34 PM EDT HEMOGLOBIN A1C Lab Routine Type 2 diabetes mellitus with hemoglobin A1c goal of less than 8.0% ([facility]) 03/27/2024 12:34 PM EDT Scheduled Orders Name Type Priority Associated Diagnoses Orde r Schedule RENAL FUNCTION PANEL Lab Routine Stage 3a chronic kidney disease (HCC) Expected: 03/27/2024 (Approximate), Expires: 03/27/2025 HEMOGLOBIN A1C Lab Routine Type 2 diabetes mellitus with hemoglobin A1c goal of less than 8.0% (HCC) Expected: 03/27/2024 (Approximate), Expires: 04/27/2025 COMPREHENSIVE METABOLIC PANEL Lab Routine HTN, goal [...] 8.0% (HCC) Expected: 09/27/2024 (Approximate), Expires: 03/27/2025 Scheduled Procedures Name Priority Associated Diagnoses Date/Ti me COLONOSCOPY FLEXIBLE PROXIMAL DIAGNOSTIC Recall Colon cancer screening Health Maintenance Due Date Last Done Comments COVID-19 Vaccine ( season) 2023 10/10/2023, 03/02/2023, 02/04/2022, Additional history exists GFR 12/26/2023 06/26/2023, 06/0 02/2023, 08/23/2022, Additional history exists HbA1c 03/26/2024 09/26/2023, 06/0 02/2023, 08/23/2022, Additional history exists Hepatitis B Vaccine (3 of 3 - 19+ 3-dose series) 03/29/2024 2023, 09/29/2023 Influenza Vaccine (FLU shot) (#1) 2024 06/26/2023, 06/09/2022, 06/17/2021, Additional history exists Diabetic Eye Exam 08/01/2024 08/01/2023, , 07/25/2005 Albumin/Creatinine Ratio 09/26/2024 09/26/2023, 07/27 CKD PHOS USE SMARTSET 93333 09/26/202410/2023, 08/23/2022, 07/29/2021, Additional history exists CKD HGB USE SMARTSET 95156 10/27/202410/27, 10/27/2023, 09/26/2023, Additional history exists Depression Screening 03/27/2025 03/27/2024, 08/23/20 22 Diabetic Foot Exam 03/27/2025 03/27/2024, 02/21/2023 DTaP,Tdap,and [...] this encounter Medical Devices Implanted Type Area Labor Custodian Device Identifier Shelf Expiration Date Model / Serial / Lot Strattice [id number] (400 Units) - [id number] Implanted:Qty : 400 on 10/25/2011 at [place] [facility] Abdomen LIFE CELL MISTY 12/23/2012 [id number] / / [id number] Mesh Prolit Hernia [id number] - [id number] Implanted:Qty : 1 on 08/14/2012 at [facility] Left: Abdomen [employer] 12/24/2015 [id number] / / [id number] Suture Steel 6 B&S19 M654g - [id number] Implanted:Qty : 3 on 07/10/2020 by Ag Ballesteros MD at [place] [facility] N/A: Sternum JNJ : [employer] 02/22/2025 M654G / / [id number] Valve Heart Aortic Epic 23mm - [id number] - [id number] Implanted:Qty : 1 on 07/10/2020 by Ag Ballesteros MD at [place] [facility] N/A: Aorta ST DOMINIK : CARDIOVASCULAR [id number] 03/22/2024 [id number] / [id number] / [id number] documented as of this encounter Visit Diagnoses Diagnosis Basal cell carcinoma (BCC) of skin of left ear and external auditory canal- Primary Type 2 diabetes mellitus with hemoglobin A1c goal of less than 8.0% ([facility]) HTN, goal below 140/90 Unspecified essential hypertension Stage 3a chronic kidney disease ([facility]) Chronic diastolic congestive heart failure ([facility]) Chronic diastolic heart failure Hypogonadism, male Other testicular hypofunction PAF (paroxysmal atrial fibrillation) ([facility]) Atrial fibrillation DM type 2 nursing care [...] and were consensually agreed upon. Care Teams Medical Charge Entry Specialist Relationship Specialty Start Date End Date Lokesh Amin MD [address] [place] [address], [place] [address] PCP - General Internal Medicine 07/22/21 documented as of this encounter
--- OUTSIDE RECORDS SUMMARY | 2024-07-19 11:42 | External Medical Summary | Summary of Care ---
Author Name Unknown Organization [facility] Address [address] [place] [address] Phone [phone] Care Team Providers Care Mat Cutter Name Role Phone Lokesh Amin MD Primary Care Provider + Reason for Visit * Reason Comments Outpatient Testing Encounter Details Date Type Department Care Team (Late st Contact Info) Description 03/27/2024 12:40 PM EDT Laboratory Laboratory [facility] [address] [place] [phone] [place], [address] Scenery [address] [place] [address] Stage 3a chronic kidney disease ([facility]); Type 2 diabetes mellitus with hemoglobin A1c goal of less than 8.0% ([facility]) Allergies Active Allergy Reactions Criticality Noted [...] Silver 50+Men Oral Tablet Take by mouth. [facility], Clinic, or Other Facility Administered Medication Ordered [...] mRNA, LNP-s, No Pre serve, 2-Dose Series ([employer]) 06/29/2021,12/15/2020,11/24/2020 COVID-19, LNP-s, No Preserve , Deric-sucrose, Ages 12+ (Pfizer) 02/04/2022 COVID-19, MRNA-LNP, 23-24, P F, 30 MCG/0.3 mL, 12 YRS AND ABOVE, IM ([employer]) 10/10/2023 Covid-19, Mrna, Lnp-s, Pf, B ivalent, 30 Mcg, IM, 12 yrs and above ([employer]) 03/02/2023 Hepatitis B, 20+ yrs 2023,09/29/2023 Pneumococcal [...] PM EDT Nurse Only Ancillary [facility] [place] [address] [place] [address] Nurse, Int Med [address] [facility] [place] [address] 04/01/2024 3:00 PM EDT Office Visit MOHS Surgery [facility] [place] [address] [place] [address] Becky Gordon MD [address] [facility] [place] [address] 04/04/2024 2:00 PM EDT Nurse Only Ancillary [facility] [place] [address] [facility] [place] [address] Nurse, Int Med [address] [facility] [place] [address] 04/08/2024 1:30 PM EDT Office Visit Cardiology, [facility] [address] [facility] [place] [address] Fabian Mejia PA-C [address] [place] [address] 11/14/2024 2:00 PM EST Office Visit General Internal Medicine [facility] [address] [facility] [place] [address] Lokesh Amin MD [address] [facility] [place] [address] 03/18/2025 10:45 AM EDT Office Visit Dermatology [facility] [address] [place] [address] Lokesh Mayen MD [address] [facility] [place] [address] Pending Results Name Type Priority Associated Diagnoses Date /Time RENAL FUNCTION PANEL Lab Routine Stage 3a chronic kidney disease (HCC) 03/27/2024 12:34 PM EDT HEMOGLOBIN A1C Lab Routine Type 2 diabetes mellitus with hemoglobin A1c goal of less than 8.0% (HCC) 03/27/2024 12:34 PM EDT Scheduled Procedures Name Priority Associated Diagnoses Date/Ti me COLONOSCOPY FLEXIBLE PROXIMAL DIAGNOSTIC Recall Colon cancer screening Health Maintenance Due Date Last Done Comments COVID-19 Vaccine ( season) 2023 10/10/2023, 03/02/2023, 02/04/2022, Additional history exists GFR 12/26/2023 06/26/2023, 0 02/2023, 08/23/2022, Additional history exists HbA1c 03/26/2024 09/26/2023, 02/2023, 08/23/2022, Additional history exists Hepatitis B Vaccine (3 of 3 - 19+ 3-dose series) 03/29/2024 2023, 09/29/2023 Influenza Vaccine (FLU shot) (#1) 2024 06/26/2023, 06/09/2022, 06/17/2021, Additional history exists Diabetic Eye Exam 08/01/2024 08/01/2023, , 07/25/2005 Albumin/Creatinine Ratio 09/26/2024 09/26/2023, 07/27 CKD PHOS USE SMARTSET 60773 09/26/202410/2023, 08/23/2022, 07/29/2021, Additional history exists CKD HGB USE SMARTSET 99815 10/27/202410/27, 10/27/2023, 09/26/2023, Additional history exists Depression Screening 03/27/2025 03/27/2024, 08/23/20 Diabetic Foot Exam 03/27/2025 03/27/2024, 02/21/2023 DTaP,Tdap,and [...] this encounter Medical Devices Implanted Type Area Middle [employer] Music Teacher Device Identifier Shelf Expiration Date Model / Serial / Lot Strattice [id number] (400 Units) - [id number] Implanted:Qty : 400 on 10/25/2011 at [place] [facility] Abdomen LIFE CELL MISTY 12/23/2012 [id number] / / [id number] Mesh Prolit Hernia [id number] - [id number] Implanted:Qty : 1 on 08/14/2012 at [place] [facility] Left: Abdomen [employer] IM[employer] 12/24/2015 [id number] / / [id number] Suture Steel 6 B&S19 M654g - [id number] Implanted:Qty : 3 on 07/10/2020 by Ag Ballesteros MD at [place] [facility] N/A: Sternum JNJ : [employer] 02/22/2025 M654G / / [id number] Valve Heart Aortic Epic 23mm - [id number] - [id number] Implanted:Qty : 1 on 07/10/2020 by Ag Ballesteros MD at [place] [facility] N/A: Aorta ST DOMINIK : CARDIOVASCULAR [id number] 03/22/2024 [id number] 00 / [id number] / [id number] documented as of this encounter Visit Diagnoses Diagnosis Stage 3a chronic kidney disease (HCC) Type 2 diabetes mellitus with hemoglobin A1c [...] and were consensually agreed upon. Care Teams Mat Cutter Relationship Specialty Start Date End Date Lokesh Amin MD [address] [place] [address] PCP - General Internal Medicine 07/22/21 documented as of this encounter
--- OUTSIDE RECORDS SUMMARY | 2024-07-19 11:42 | External Medical Summary | Summary of Care ---
Author Name Unknown Organization [facility] Address [address] [place] [address] Phone [phone] Care Team Providers Care Drug Safety Scientist Name Role Phone Lokesh Amin MD Primary Care Provider + Reason for Visit * Reason Comments Surgery Encounter Details Date Type Department Care Team (Late st Contact Info) Description 03/11/2024 1:00 PM EDT Office Visit MOHS Surgery [facility] [address] [place] [address] Becky Gordon MD [address] [place] [address] BCC (basal cell carcinoma), ear, left* Allergies Active Allergy Reactions Criticality Noted Date Comments Demerol Neuro complications (Please comment) High 06/14/2010 confusion Adhesive Tape Rash Low 06/14/2010 documented as of this encounter (statuses as of 03/24/2024) Medications Medication Sig Dispensed Refills Start Date End Date Status GINKOBA 40 MG OR TABS 0 05/10/2004 Active OMEGA MG OR CAPS daily 0 01/17/2005 Active GLUCOSAMINE CHONDROITIN OR TABSIndications:P ain in [...] a day. 54 g 3 07/29/2021 Active Fluorouracil 5 % External Cream (Efudex) Apply topically to affected area 2 times a day. apply to affected area. 40 g 08/22/2022 Active Additional Information Patient not taking.Reported on 03/08/2024 Cholestyramine 4 GM Oral Packet (Questran) Take 1 Packet by mouth in the morning. Mixed with liquid. Administer other oral medications 1 hour before or 6 hours after cholestyramine.. 30 Packet 2 03/02/2023 Active Additional Information Patient not taking.Reported on 03/08/2024 Metoprolol Succinate ER 25 MG Oral Tablet Extended Release 24 Hour (toPROL XL)Indications:Ca rdiomegaly TAKE 1 TABLET BY MOUTH EVERY DAY 90 Tablet 3 08/08/2023 Active Cranberry 500 MG Oral Tablet Take 500 mg by mouth in the morning. Active Lisinopril 5 MG Oral Tablet (Prinivil)Indicat ions:HTN, goal below 140/90,Heart failure, diastolic, due to HTN (HCC),S/P AVR (aortic valve replacement) Take 1 Tablet by mouth at bedtime. 90 Tablet 3 09/20/2023 Active Eliquis 5 MG Oral Tablet (Apixaban)Indicat [...] EACH NOSTRIL EVERY DAY 48 mL 2 06/26/2023 03/24/20 24 Discontinued Cephalexin 500 MG Oral Capsule Take 1 Capsule by mouth in the morning and 1 Capsule before bedtime. Do all this for 7 days. 14 Capsule 03/11/2024 03/18/20 24 Hospital, Clinic, or Other Facility Administered Medication Ordered Dose Route Frequency Start Date End Date Status Testosterone Cypionate (Depotestosterone Cypionate) 200 MG/ML inj 100 mgIndications:Hypogonadism, male 100 mg IM QMONTH 01/11/2021 Active Cephalexin (Keflex) cap 2,000 mgIndications:BCC (basal cell carcinoma), ear, left 2000 mg OR ONCE 03/11/2024 03/11/2024 Ended documented as of this encounter (statuses as of 03/24/2024) Active Problems Problem Noted Date Diagnosed Date Chronic diastolic congestive heart failure 03/22 Type [...] as of this encounter (statuses as of 03/24/2024) Resolved Problems Problem Noted Date Diagnosed Date [...] as of this encounter (statuses as of 03/24/2024) Immunizations Name Administration Dates Next Due COVID-19 mRNA, LNP-s, No Pre serve, 2-Dose Series ([employer]) 06/29/2021,12/15/2020,11/24/2020 COVID-19, LNP-s, No Preserve , Deric-sucrose, Ages 12+ (Pfizer) 02/04/2022 COVID-19, MRNA-LNP, 23-24, P F, 30 MCG/0.3 mL, 12 YRS AND ABOVE, IM ([employer]) 10/10/2023 Covid-19, Mrna, Lnp-s, Pf, B ivalent, [...] Progress Notes * Becky Gordon MD - 03/11/2024 4:32 PM EDT History: Jhon Nelson is a 78 year old patient seen today for delayed repair/reconstruction following Mohs surgery of a basal cell carcinoma on the left helical root completed 03/08/24. Examination: Open surgical wound involving left helix, antihelix, mónica, posterior ear (full-thickness defect of medial/superior ear through helical root/helix/antihelix), left postauricular area, and left preauricular area (Detached pinna was reattached to pre- and post-auricular areas on head with deep and cutaneous sutures on 03/08/24 following Mohs surgery) Impression: Basal cell carcinoma, left helical root/ear, cleared with Mohs surgery 03/08/2024 Recommendation: 1) The surgical defect was repaired with a banner transposition flap and Burow's full-thickness skin graft. Discussed risks and benefits, including possibility of infection, bleeding, and nerve damage (thereis a risk of injury to nerves causing temporary or permanent numbness or the inability to move muscles fully such as the inability to lift eyebrows). I have discussed the fact that the patient will have a scar after the procedure and there will be a distortion of the shape/size of the left ear. (See procedure note below) 2 g Keflex administered Prescribed keflex 500 mg twice a day x 7 days to be started tomorrow Follow-up: 1 week Becky Gordon MD MOHS Surgery [address] [address] PROCEDURE NOTE Location: left ear and left pre-auricular area Surgeon(s): Becky Gordon MD Anesthesia: Lidocaine 0.5% with epinephrine 1:200,000 by local infiltration Procedure: banner transposition flap and Burow's full-thickness skin graft Estimated blood loss: Less than 5cc Complications: none Defect size: 4.0 cm x 2.7 cm Postoperative area of closure: 60 sq cm Description of procedure: This wound was reconstructed with a banner transposition flap and full-thickness skin graft. The surgical site was locally anesthesized with buffered lidocaine 0.5% with epinephrine 1:200,000. The skin was treated with surgical scrub solution. The beveled wound edges were then excised to 90 degrees relative to the surrounding skin plane. The flap was cut and elevated, and surrounding skin was undermined in all directions. Meticulous hemostasis was obtained with the electrosurgical device. The donor defect was closed. The flap was transposed (carried over interveningnormal skin) into the defect and cut to precisely fit the wound. A dog-ear was excised to remove redundant tissue and the defect was closed in a layered fashion. The remaining defect (at left antihelix) was reconstructed with a full-thickness skin graft (Burow's full-thickness skin graft). The graft was trimmed and sutured to the Mohs wound with simple and running sutures. A pressure dressing consisting of xeroform, Telfa and cotton was secured over the graft. Subcutaneous closure material: 4-0 Monocryl and 4-0 Vicryl Cutaneous closure material: Running 5-0 Fast gut and Running 5-0 Chromic gut Postoperative care: The patient was instructed to leave bandage in place and keep it clean and dry until follow-up appointment. Becky Gordon MD Associate, Mohs Micrographic Surgery & Dermatologic Surgery documented in this encounter Plan of Treatment Upcoming Encounters Date Type Department Care Team (Late st Contact Info) Description 03/25/2024 1:30 PM EDT Office Visit MOHS Surgery [facility] [address] [facility] [address] Becky Gordon MD [address] [place] [address] [place] [address] 03/27/2024 12:00 PM EDT Office Visit General Internal Medicine [address] [place] [address] Lokesh Amin MD [address] [place], [place] [address] [address] 04/01/2024 2:00 PM EDT Nurse Only Ancillary [facility] [place] [address] [place] [address] Nurse, Int Med [address] [place] [address] 04/04/2024 2:00 PM EDT Nurse Only [facility]illary [facility] [place] [address] [facility] [place] [address] Nurse, Int Med [address] [place] [address] 04/08/2024 1:30 PM EDT Office Visit Cardiology, [facility] [address] [place] [address] Fabian Mejia PA-C [address] [place] [address] 03/18/2025 10:45 AM EDT Office Visit Dermatology [facility] [place] [address] [place] [address] Lokesh Mayen MD [address] [place] [address] Scheduled Procedures Name Priority Associated Diagnoses Date/Ti me COLONOSCOPY FLEXIBLE PROXIMAL DIAGNOSTIC Recall Colon cancer screening Health Maintenance Due Date Last Done Comments Depression Screening 08/23/2023 08/23/2022 COVID-19 Vaccine ( season) 2023 10/10/2023, 03/02/2023, 02/04/2022, Additional history exists GFR 12/26/2023 06/26/2023, 02/2023, 08/23/2022, Additional history exists Diabetic Foot Exam 02/22/2024 02/21/2023 HbA1c 03/26/2024 09/26/2023, 02/2023, 08/23/2022, Additional history exists Hepatitis B (3 of 3 - 19+ 3-dose series) 03/29/2024 2023, 09/29/2023 Diabetic Eye Exam 08/01/2024 08/01/2023, , 07/25/2005 Albumin/Creatinine Ratio 09/26/2024 09/26/2023, 07/27 CKD PHOS USE SMARTSET 39580 09/26/202410/2023, 08/23/2022, 07/29/2021, Additional history exists CKD HGB USE SMARTSET 18107 10/27/202410/27, 10/27/2023, 09/26/2023, Additional history exists DTaP,Tdap,and Td Vaccines (3 - Td or Tdap) 09/07/2029 09/07/2019, 08/24/2009 Pneumococcal Vaccine: 65+ Years Completed 02/08/2016, 02/08/2012, 08/18/2004 Zoster Vaccines Completed 10/09/2020, 03/04/2020 Influenza Vaccine (FLU shot) Completed 10/2022, 06/09/2022, 06/17/2021, Additional history exists GARDASIL-HPV IMMUNIZATION SERIES Aged Out No longer eligible based on patient's age to complete this topic MENINGOCOCCAL (MENACTRA/MENVEO) Aged Out No longer eligible based on patient's age to complete this topic documented as of this encounter Medical Devices Implanted Type Area Informatica Mdm Architect Device Identifier Shelf Expiration Date Model / Serial / Lot Strattice [id number] (400 Units) - [id number] Implanted:Qty : 400 on 10/25/2011 [place] [facility] [place] Abdomen LIFE CELL MISTY 12/23/2012 [id number] / / [id number] Mesh Prolit Hernia [id number] - [id number] Implanted:Qty : 1 on 08/14/2012 at [place] [facility] [place] Left: Abdomen [employer] MIST[employer] 12/24/2015 [id number] / / [id number] Suture Steel 6 B&S19 M654g - [id number] Implanted:Qty : 3 on 07/10/2020 by Ag Ballesteros MD at [place] [facility] [place] N/A: Sternum JNJ : [employer] 02/22/2025 M654G / / [id number] Valve Heart Aortic Epic 23mm - [id number] - [id number] Implanted:Qty : 1 on 07/10/2020 by Ag Ballesteros MD at [place] [facility] [place] N/A: Aorta ST DOMINIK : CARDIOVASCULAR [id number] 03/22/2024 [id number] 00 / [id number] / [id number] documented as of this encounter Visit Diagnoses Diagnosis BCC (basal cell carcinoma), ear, left- Primary documented in this encounter Administered Medications Inactive Administered Medications - up to 3 most recent administrations Medication Order MAR Action Action Date Dose Rate Site Cephalexin (Keflex) cap 2,000 mg 2,000 mg, Oral, ONCE, On 03/11/24 at 1715, For 1 dose Given 03/11/2024 1:30 PM EDT 2,000 mg documented in this encounter Advance Directives * [...] and were consensually agreed upon. Care Teams Drug Safety Scientist Relationship Specialty Start Date End Date Lokesh Amin MD [address] [place] [address] PCP - General Internal Medicine 07/22/21 documented as of this encounter
--- OUTSIDE RECORDS SUMMARY | 2024-07-19 11:42 | External Medical Summary ---
Author Name Unknown Address Unknown Organization K09[facility] [place] [address] Laboratory Report Ordering Provider Test Date Status COREY JARAMILLO 03/27/2024 12:34:39 Final Observation Date Value Abnormality Reference (Units ) Status BUN 03/27/2024 12:34:39 14 6-20 (mg/dL) Final Creatinine 03/27/2024 12:34:39 1.3 Above high normal 0.6-1.2 (mg/dL) Final Glomerular filtration rate/1.73 sq M.predicted [Volume Rate/Area] in Serum, Plasma or Blood by Creatinine-based formula (CKD-EPI) 03/27/2024 12:34:39 55 Below low normal >=60 (mL/min) Final eGFR is calculated based on the CKD-EPI 2020 equation Sodium 03/27/2024 12:34:39 132 Below low normal 135 -146 (mmol/L) Final Potassium 03/27/2024 12:34:39 4.1 3.5-5.1 (m mol/L) Final Cl 03/27/2024 12:34:39 92 Below low normal 98- 107 (mmol/L) Final CO2 03/27/2024 12:34:39 26 22-32 (mmo l/L) Final Anion gap 03/27/2024 12:34:39 14 7-15 (mmol /L) Final Glucose 03/27/2024 12:34:39 459 Above high normal 70 -120 (mg/dL) Final Calcium 03/27/2024 12:34:39 10.1 8.4-10.2 ( mg/dL) Final Albumin 03/27/2024 12:34:39 4.3 3.8-5.0 (g /dL) Final Phosphate 03/27/2024 12:34:39 3.2 2.5-4.8 (m g/dL) Final Performing Location [facility] [address]
--- OUTSIDE RECORDS SUMMARY | 2024-07-19 11:42 | External Medical Summary | Summary of Care ---
Author Name Unknown Organization [facility] Address [address] [place] [address] Phone [phone] Care Team Providers Care Press Tender Smoke Signal Name Role Phone Lokesh Amin MD Primary Care Provider + Reason for Visit * Reason Comments Outpatient Testing Encounter Details Date Type Department Care Team (Late st Contact Info) Description 03/27/2024 12:40 PM EDT Laboratory Laboratory [facility] [address] [place] [phone] [place] [address] [place] [address] Stage 3a chronic kidney disease ([facility]); Type 2 diabetes mellitus with hemoglobin A1c goal of less than 8.0% ([facility]) Allergies Active Allergy Reactions Criticality Noted Date [...] Silver 50+Men Oral Tablet Take by mouth. [facility], or Other Facility Administered Medication [...] mRNA, LNP-s, No Pre serve, 2-Dose Series ([employer]) 06/29/2021,12/15/2020,11/24/2020 COVID-19, LNP-s, No Preserve , Deric-sucrose, Ages 12+ (Pfizer) 02/04/2022 COVID-19, MRNA-LNP, 23-24, P F, 30 MCG/0.3 mL, 12 YRS AND ABOVE, IM ([employer]) 10/10/2023 Covid-19, Mrna, Lnp-s, Pf, B ivalent, 30 Mcg, IM, 12 yrs and above ([employer]) 03/02/2023 Hepatitis B, 20+ yrs 2023,09/29/2023 Pneumococcal [...] PM EDT Nurse Only Ancillary [facility] [place] [address] [place] [address] Nurse, Int Med [address] [facility] [place] [address] 04/01/2024 3:00 PM EDT Office Visit MOHS Surgery [facility] [place] [address] [place] [address] Becky Gordon MD [address] [facility] [place] [address] 04/04/2024 2:00 PM EDT Nurse Only Ancillary [facility] [place] [address] [facility] [place] [address] Nurse, Int Med [address] [facility] [place] [address] 04/08/2024 1:30 PM EDT Office Visit Cardiology, [facility] [address] [facility] [place] [address] Fabian Mejia PA-C [address] [place] [address] 11/14/2024 2:00 PM EST Office Visit General Internal Medicine [facility] [address] [facility] [place] [address] Lokesh Amin MD [address] [facility] [place] [address] 03/18/2025 10:45 AM EDT Office Visit Dermatology [facility] [address] [facility] [address] [place] [address] Lokesh Mayen MD [address] [facility] [place] [address] Pending Results Name Type Priority Associated Diagnoses [...] 09/26/2024 09/26/2023, 07/27 CKD PHOS USE SMARTSET 47275 09/26/202410/2023, 08/23/2022, 07/29/2021, Additional history exists CKD HGB USE SMARTSET 43790 10/27/202410/27, 10/27/2023, 09/26/2023, Additional history exists Depression [...] encounter Medical Devices Implanted Type Area Top Frame Fitter Device Identifier Shelf Expiration Date Model / Serial / Lot Strattice [id number] (400 Units) - [id number] Implanted:Qty : 400 [place] 10[place]25[place] [facility] [place] LIFE CELL MISTY 12/23/2012 [id number] / / [id number] Mesh Prolit Hernia [id number] - [id number] Implanted:Qty : 1 on 08/14/2012 [place] [facility] [place]: Abdomen [employer] M[employer] 12/24/2015 [id number] / / [id number] Suture Steel 6 B&S19 M654g - [id number] Implanted:Qty : 3 on 07/10/2020 by Ag Ball[place]os [place] [facility] [place]/A: Sternum JNJ : [employer] 02/22/2025 M654G / / [id number] Valve Heart Aortic Epic 23mm - [id number] - [id number] Implanted:Qty : 1 on 07/10/2020 by Ag Ballesteros MD [place] [facility] [place] N/A: Aorta ST DOMINIK : CARDIOVASCULAR [id number] 03/22/2024 [id number] 00 / [id number] / [id number] documented as of this encounter Visit Diagnoses [...] and were consensually agreed upon. Care Teams Press Tender Smoke Signal Relationship Specialty Start Date End Date Lokesh Amin MD [address] [facility] [place] [address] PCP - General Internal Medicine 07/22/21 documented as of this encounter
--- OUTSIDE RECORDS SUMMARY | 2024-07-19 11:42 | External Medical Summary ---
Author Name Unknown Address Unknown Organization K01:[facility] - [address] [facility] [place] [address] Laboratory Report Ordering Provider Test Date Status COREY JARAMILLO 03/27/2024 12:34:39 Final Observation Date Value Abnormality Reference (Units ) Status HbA1C 03/27/2024 12:34:39 12.4 Above high normal 4. 0-5.6 (%) Final The use of HbA1c to monitor glycemic status is based on normal hemoglobin and HbA composition. This test should not be used in patients with abnormal hemoglobin that affects the half life of the red blood cell or the in vivo glycation rates. Glucose, estimated average 03/27/2024 12:34:39 309 Above high normal <126 (mg/dL) Herbert alvarez Performing Location LABOR[facility] - [address] [facility] [place] [address]
--- OUTSIDE RECORDS SUMMARY | 2024-07-19 11:42 | External Medical Summary | Summary of Care ---
Author Name Unknown Organization [facility] Address [address] [place] [address] Phone [phone] Care Team Providers Care Sld Teacher Name Role Phone Lokesh Amin MD Primary Care Provider + Reason for Referral * Evaluate & Treat - Unlimited Visits (Within 3 days (urgent)) - Authorized Specialty Diagnoses / Procedures Referred By Contsonal t Referred To Contact Pharmacist / Pharmacy Diagnoses Type 2 diabetes mellitus with hemoglobin A1c goal of less than 8.0% ([facility]) Lokesh Amin MD [address] [place] [address] Referral ID Status Reason Start Date Expiration Date Visits Requested Visits Authorized [id number] Authorized Specialty Services Required 03/28/2024 09/24/2024 99 99 Question Answer Referral Priority Within 3 days (urgent) Where should this appointment be scheduled? [facility] Referring Provider Role: Primary Care Reason for Referral: DM Target A1c: < 8 Comments Pharmacist Medication Therapy Management: Minimum frequency patient should be seen in person for medication management: as appropriate per clinical condition and patient status By my signature, I understand that my patient Jhon Nelson will have his medication therapy managed by the [facility] ([facility]) per established policies, procedures, and protocols. I also certify that this referral may serve as an initiation of service for the management of drug therapy in the above noted patient. [facility] providers will be responsible for scheduling patient visits, obtaining appropriate laboratory studies, and adjusting medication management therapy per patient's need, in addition to those roles spelled out in the clinic policy, procedures, and drug management protocols. I understand that the service provided by the [facility] is voluntary and have informed patient that they can refuse the service at their discretion. I am aware that the [facility] will provide me with a copy of the patient encounter via my [employer]. I authorize the [facility] to carry out these activities on [...] PM EDT Office Visit General Internal Medicine [facility] [place] [address] [facility] [place] [address] Lokesh Amin MD 200 [facility] [place] [address] Basal cell carcinoma (BCC) of skin of left ear and external auditory canal*; Type 2 diabetes mellitus with hemoglobin A1c goal of less than 8.0% ([facility]); HTN, goal below 140/90; Stage 3a chronic kidney disease ([facility]); Chronic diastolic congestive heart failure ([facility]); Hypogonadism, male; PAF (paroxysmal atrial fibrillation) ([facility]); DM type 2 nursing care encounter ([facility]); S/P AVR (aortic valve replacement); Encounter for long-term (current) use of medications; Nocturia Allergies Active Allergy Reactions Criticality Noted Date Comments Demerol Neuro complications (Please comment) High 06/14/2010 confusion Adhesive Tape Rash Low 06/14/2010 documented as of this encounter (statuses as of 03/28/2024) Medications Medication Sig Dispensed Refills Start Date [...] as of this encounter (statuses as of 03/28/2024) Active Problems Problem Noted Date Diagnosed Date [...] as of this encounter (statuses as of 03/28/2024) Resolved Problems Problem Noted Date Diagnosed Date [...] as of this encounter (statuses as of 03/28/2024) Immunizations Name Administration Dates Next Due COVID-19 mRNA, LNP-s, No Pre serve, 2-Dose Series ([employer]) 06/29/2021,12/15/2020,11/24/2020 COVID-19, LNP-s, No Preserve , Deric-sucrose, Ages 12+ (Pfizer) 02/04/2022 COVID-19, MRNA-LNP, 23-24, P F, 30 MCG/0.3 mL, 12 YRS AND ABOVE, IM [facility] 10/10/2023 Covid-19, Mrna, Lnp-s, Pf, B ivalent, [...] calluses yourself. Talk to your doctor or merchandise planning manager (a doctor who specializes in foot care) [...] the area doesnt appear to be healing. [id number] [employer], [address] [place] [address], [place] [address]. All rights reserved. This information is not [...] regurgitation Heart failure, diastolic, due to HTN ([facility]) S/P AVR (aortic valve replacement) Left carotid stenosis Stage 3a chronic kidney disease Cardiac pacemaker in situ PAF (paroxysmal atrial fibrillation) ([facility]) Type 2 diabetes mellitus with hemoglobin A1c goal of less than 8.0% ([facility]) Chronic diastolic congestive heart failure ([facility]) Basal cell carcinoma (BCC) of skin [...] Solution Reconstituted (RSV Pre-Fusion F A&B Vac [facility]) as directed (Patient not taking: Reported on [...] file Occupational History 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[employer] Employer: [employer] [id number] Tobacco Use Smoking status: Former Types: Cigars [...] of coffee 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[employer] No Sleep Concern No [...] Adrenal mass, 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 Bowel obstruction ([facility]) Cardiac pacemaker in situ 11/19/2020 Diverticulitis of colon Glaucoma 01/30/2007 dr rivas HTN, goal below 140/90 12/11/2018 Impotence of organic origin Left carotid stenosis 08/18/2020 PAF (paroxysmal atrial fibrillation) ([facility]) 02/01/2022 Panniculitis 03/07/2012 Type 2 diabetes mellitus with hemoglobin A1c goal of less than 8.0% ([facility]) 08/24/2022 Past Surgical History: Procedure Laterality Date COLONOSCOPY 11/18/2005 Normal repeat in 10 years COLONOSCOPY, DIAGNOSTIC (RECTUM) 01/21/2016 diverticulosis, repeat 10 yrs/COLONOSCOPY FLEXIBLE PROXIMAL DIAGNOSTIC performed by Steve Bahena MD at [facility]COPY [facility] COLONOSCOPY, DIAGNOSTIC (RECTUM) 05/19/2023 dvierticulosis / COLONOSCOPY FLEXIBLE PROXIMAL DIAGNOSTIC performed by Freddy Arthur MD at ENDOSCOPY [facility] CYSTOSCOPY 02/26/2013 CYSTOSCOPY 08/05/2014 CYSTOSCOPY 12/26/2014 CYSTOSCOPY/DILATE BLADDER N/A 01/27/2015 CYSTOURETHROSCOPY DILATION BLADDER GENERAL ANESTHESIA performed by Colt North MD at [facility] CYSTOSCOPY/TREAT MINOR LESION(S) N/A 01/27/2015 CYSTOURETHROSCOPY WITH FULGURATION MINOR BLADDER TUMOR performed by Colt North MD at [facility] IMPLANT MESH W/ ABD HERNIA REPR/DEBRIDE 08/14/2012 IMPLANTATION MESH WITH INCISIONAL/VENTRAL HERNIA performed by Adryan Kunz MD at [facility] MUSCLE-SKIN FLAP, TRUNK 10/18/2011 MUSCLE MYOCUTANEOUS OR FASCIOCUTANEOUS FLAP TRUNK performed by NANCY GARCIA at [facility] MUSCLE-SKIN FLAP, TRUNK 10/25/2011 MUSCLE MYOCUTANEOUS OR FASCIOCUTANEOUS FLAP TRUNK performed by NANCY GARCIA at [facility] PARTIAL REMOVAL OF COLON REMOVAL OF APPENDIX REMOVAL OF PROSTATE (TURP) 01/27/2015 TRANSURETHRAL RESECTION PROSTATE ELECTROSURGICAL performed by Colt North MD at [facility] REMOVAL OF TONSILS, UNDER AGE 12 REMOVE GALLBLADDER REPAIR INITIAL INCISIONAL OR VENTRAL HERNIA; REDUCIBLE 04/25/2011 REPAIR INITIAL INCISIONAL /VENTRAL HERNIA REDUCIBLE performed [place] CH[place]ST[place] [facility] REPAIR INITIAL INCISIONAL OR VENTRAL HERNIA; REDUCIBLE 09/22/2011 REPAIR INITIAL INCISIONAL /VENTRAL HERNIA REDUCIBLE performed by [place] [facility] REPAIR INITIAL INCISIONAL OR VENTRAL HERNIA; REDUCIBLE 10/25/2011 REPAIR INITIAL INCISIONAL /VENTRAL HERNIA REDUCIBLE performed by [place] CHRIST[place] [facility] REPAIR INITIAL INCISIONAL OR VENTRAL HERNIA; REDUCIBLE 08/14/2012 REPAIR INITIAL INCISIONAL /VENTRAL HERNIA REDUCIBLE performed by Adryan Kunz MD at [facility] REPLACEMENT AORTIC VALVE, BYPASS WITH PROSTHETIC VALVE N/A 07/10/2020 REPLACEMENT AORTIC VALVE, BYPASS WITH PROSTHETIC VALVE performed by Ag Ballesteros MD at [facility] TOTAL HIP REPLACEMENT & PROSTHESIS 11/04/2013 Right [...] Hypogonadism, male I48.0 PAF (paroxysmal atrial fibrillation) ([facility]) E11.9 DM type 2 nursing care encounter ([facility]) Z95.2 S/P AVR (aortic valve replacement) Z79.899 Encounter for long-term (current) use of medications R35.1 Nocturia PLAN: Basal cell carcinoma (BCC) of skin of left ear and external auditory canal (Primary) Appreciate MOHS/derm aid Type 2 diabetes mellitus with hemoglobin A1c goal of less than 8.0% ([facility]) - HEMOGLOBIN A1C; Future; Expected date: [...] to continue testosterone PAF (paroxysmal atrial fibrillation) ([facility]) Cont metoprolol, eliquis DM type 2 nursing care encounter ([facility]) - DIABETES FOOT EXAM S/P AVR [...] 04/01/2024 2:00 PM EDT Nurse Only [facility] [place] [address] [place], [place] [address] Nurse, Int Med [address] [facility] [place], [place] [address] 04/01/2024 3:00 PM EDT Office Visit MOHS Surgery [facility] [address] [place] [address] Becky Gordon MD 200 [facility] [place] [address] 04/04/2024 2:00 PM EDT Nurse Only Ancillary [facility] [address] [place] [address] Nurse, Int Med [address] [facility] [place], [place] [address] 04/08/2024 1:30 PM EDT Office Visit Cardiology, [facility] [address] [facility] [place] [address] Fabian Mejia PA-C [address] [place] [address] 11/14/2024 2:00 PM EST Office Visit General Internal Medicine [facility] [address] [place], [place] [address] Lokesh Amin MD 200 [facility] [place], [place] [address] 03/18/2025 10:45 AM EDT Office Visit Dermatology [facility] [address] [place], [place] [address] Lokesh Mayen MD [address] [facility] [place], [place] [address] Scheduled Orders Name Type Priority Associated Diagnoses [...] goal of less than 8.0% (HCC) Expected: 04/04/2024 (Approximate), Expires: 03/28/2025 Scheduled Procedures Name Priority Associated Diagnoses Date/Ti [...] Additional history exists CKD HGB USE SMARTSET 57441 10/27/202410/27, 10/27/2023, 09/26/2023, Additional history exists CKD PHOS USE SMARTSET 86548 03/27/202511/2023, 09/26/2023, 08/23/2022, Additional history exists Depression [...] this encounter Medical Devices Implanted Type Area Slip Feeder Device Identifier Shelf Expiration Date Model / Serial / Lot Strattice [id number] (400 Units) - [id number] Implanted:Qty : 400 on 10/25/2011 [place] [facility] Abdomen [employer] MISTY 12/23/2012 [id number] / / [id number] Mesh Prolit Hernia [id number] - [id number] Implanted:Qty : 1 on 08/14/2012 [place] [facility] Left: Abdomen [employer] 12/24/2015 [id number] / / [id number] Suture Steel 6 B&S19 M654g - [id number] Implanted:Qty : 3 on 07/10/2020 by Ag Ballesteros MD [place] [facility] N/A: Sternum JNJ : [employer] 02/22/2025 M654G / / [id number] Valve Heart Aortic Epic 23mm - [id number] - [id number] Implanted:Qty : 1 on 07/10/2020 by Ag Ballesteros MD [place] [facility] N/A: Aorta ST DOMINIK : CARDIOVASCULAR [id number] 03/22/2024 [id number] / [id number] / [id number] documented as of this encounter Results * (ABNORMAL) HEMOGLOBIN A1C (03/27/2024 12:34 PM EDT) Hemoglobin A1C 12.4(H) 4.0 - 5.6 % 03/27/2024 7:40 PM EDT LAB[facility] Comment:The use of HbA1c to monitor glycemic status is based on normal hemoglobin and HbA composition. This test should not be used in patients with abnormal hemoglobin that affects the half life of the red blood cell or the in vivo glycation rates. Estimated Average Glucose 309(H) <126 mg/dL 03/27/2024 7:40 PM EDT [facility] Blood Venous blood specimen / Unknown Venipuncture / Unknown 03/27/2024 12:34 PM EDT 03/27/2024 12:34 PM EDT Lokesh Amin MD LAB BLOOD ORDERA BLES [facility] [address] [place] [address] * (ABNORMAL) RENAL FUNCTION PANEL (03/27/2024 12:34 PM EDT) BUN 14 6 - 20 mg/dL 03/27/2024 2:18 PM EDT [facility] 56- Creatinine 1.3(H) 0.6 - 1.2 mg/dL 03/27/2024 2:18 PM EDT [facility] 56- Estimated Glomerular Filtration Rate 55(L) >=60 mL/min 03/27/2024 2:18 PM EDT [facility] 56- Comment:eGFR is calculated b ased on the CKD-EPI 2020 equation Sodium 132(L) 135 - 146 mmol/L 03/27/2024 2:18 PM EDT [facility] 56- Potassium 4.1 3.5 - 5.1 mmol/L 03/27/2024 2:18 PM EDT [facility] 56 Chloride 92(L) 98 - 107 mmol/L 03/27/2024 2:18 PM EDT [place] [address]- CO2 26 22 - 32 mmol/L 03/27/2024 2:18 PM EDT [place] [address]- Anion Gap 14 7 - 15 mmol/L 03/27/2024 2:[address]T [address] Glucose 459(H) 70 - 120 mg/dL 03/27/2024 2:18 PM EDT [address] Calcium 10.1 8.4 - 10.2 mg/dL 03/27/2024 2:18 PM EDT [address] Albumin 4.3 3.8 - 5.0 g/dL 03/27/2024 2:18 PM EDT [address] Phosphorus 3.2 2.5 - 4.8 mg/dL 03/27/2024 2:18 PM EDT [address] Blood Venous blood specimen / Unknown Venipuncture / Unknown 03/27/2024 12:34 PM EDT 03/27/2024 12:34 PM EDT Lokesh Amin MD LAB BLOOD ORDERA BLES [address] [place] [address] documented in this encounter Visit Diagnoses Diagnosis Basal cell carcinoma (BCC) of skin of left ear and external auditory canal- Primary Type 2 diabetes mellitus with hemoglobin A1c goal of less than 8.0% ([facility]) HTN, goal below 140/90 Unspecified essential hypertension Stage 3a chronic kidney disease (HCC) Chronic diastolic congestive heart failure (HCC) Chronic diastolic heart failure Hypogonadism, male Other testicular hypofunction PAF (paroxysmal atrial fibrillation) (HCC) Atrial fibrillation DM type 2 nursing care encounter ([facility]) Type II or unspecified type diabetes [...] and were consensually agreed upon. Care Teams Sld Teacher Relationship Specialty Start Date End Date Lokesh Amin MD 200 [facility] [place] [address] PCP - General Internal Medicine 07/22/21 documented as of this encounter
--- OUTSIDE RECORDS SUMMARY | 2024-07-19 11:42 | External Medical Summary | Summary of Care ---
Author Name Unknown Organization [facility] Address [address] [place] [address] Phone [phone] Care Team Providers Care Research Coordinator Name Role Phone Lokesh Amin MD Primary Care Provider + Reason for Visit * Reason Comments Wound Recheck Mohs to L ear-helix root 03/08/24, delayed repair 03/11/24 Encounter Details Date Type Department Care Team (Late st Contact Info) Description 03/25/2024 1:30 PM EDT Office Visit MOHS Surgery [facility] [address] [place] [address] Becky Gordon MD [address] [place] [address] Visit for wound check* Allergies Active Allergy Reactions Criticality Noted Date [...] EVERY DAY 48 mL 2 03/24/2024 Active Fluorouracil 5 % External Cream (Efudex) [...] mRNA, LNP-s, No Pre serve, 2-Dose Series ([employer]) 06/29/2021,12/15/2020,11/24/2020 COVID-19, LNP-s, No Preserve , Deric-sucrose, Ages 12+ ([employer]) 02/04/2022 COVID-19, MRNA-LNP, 23-24, P F, 30 [...] Progress Notes * Becky Gordon MD - 03/28/2024 2:51 PM EDT SUBJECTIVE: HPI: Jhon Nelson is a 78 year old male seen for follow-up of 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 Wound is healing well thus far and patient has no concerns/ complaints. EXAM Surgical wound on left ear and preauricular area healing well full-thickness skin graft at left antihelix with eschar/crust (at least partial necrosis of skin graft) PLAN -Continue vaseline with bandage until completely healed Follow-up: 1 week The patient was encouraged to contact me with any further questions or concerns. Becky Gordon MD Associate, Mohs Micrographic Surgery & Dermatologic Surgery documented in this encounter Nursing Notes * Holly Alex LPN - 03/25/2024 1:44 PM EDT Chief Complaint Patient presents with Wound Recheck Mohs to L ear-helix root 03/08/24, delayed repair 03/11/24 documented in this encounter Plan of Treatment Upcoming Encounters Date Type Department Care Team (Late st Contact Info) Description 04/01/2024 2:00 PM EDT Nurse Only Ancillary [address] [place] [address] Nurse, Int Med [address] [place] [address], [place] [address] 04/01/2024 3:00 PM EDT Office Visit MOHS Surgery [facility] [address] Becky Gordon MD [address] [place] [address] [place] [address] 04/04/2024 2:00 PM EDT Nurse Only Ancillary [address] [place] [address] Nurse, Int Med 200 [facility] [place] [address] 04/08/2024 1:30 PM EDT Office Visit Cardiology, [facility] [address] [facility] [place] [address] Fabian Mejia PA-Gregory [address] [place] [address] 11/14/2024 2:00 PM EST Office Visit General Internal Medicine [facility] [place] [address] [facility] [place] [address] Lokesh Amin MD 200 [facility] [place] [address] 03/18/2025 10:45 AM EDT Office Visit Dermatology [facility] [address] [facility] [place] [address] Lokesh Mayen MD 200 [facility] [place] [address] Scheduled Procedures Name Priority Associated Diagnoses Date/Ti [...] Additional history exists CKD HGB USE SMARTSET 01611 10/27/202410/27, 10/27/2023, 09/26/2023, Additional history exists CKD PHOS USE SMARTSET 71653 03/27/202511/2023, 09/26/2023, 08/23/2022, Additional history exists Depression [...] this encounter Medical Devices Implanted Type Area Anesthetist Device Identifier Shelf Expiration Date Model / Serial / Lot Strattice [id number] (400 Units) - [id number] Implanted:Qty : 400 on 10/25/2011 at [place] [facility] Abdomen LIFE CELL MISTY 12/23/2012 [id number] / / [id number] Mesh Prolit Hernia [id number] - [id number] Implanted:Qty : 1 on 08/14/2012 at [place] [facility] Left: Abdomen [employer] 12/24/2015 [id number] / / [id number] Suture Steel 6 B&S19 M654g - [id number] Implanted:Qty : 3 on 07/10/2020 by Ag Ballesteros MD at [place] [facility] N/A: Sternum JNJ : [employer] 02/22/2025 M654G / / [id number] Valve Heart Aortic Epic 23mm - [id number] - [id number] Implanted:Qty : 1 on 07/10/2020 by Ag Ballesteros MD at [place] [facility] N/A: Aorta ST DOMINIK : CARDIOVASCULAR [id number] 03/22/2024 [id number] 00 / [id number] / [id number] documented as of this encounter Visit Diagnoses Diagnosis Visit for wound check- Primary Encounter for other specified aftercare documented in this encounter Advance Directives * [...] and were consensually agreed upon. Care Teams Research Coordinator Relationship Specialty Start Date End Date Lokesh Amin MD 200 [facility] [place] [address] PCP - General Internal Medicine 07/22/21 documented as of this encounter
--- OUTSIDE RECORDS SUMMARY | 2024-07-19 11:43 | External Medical Summary | Summary of Care ---
Author Name Unknown Organization [facility] Address [address] [place] [address] Phone [phone] Care Team Providers Care Eyeglass Frames Inspector Name Role Phone Lokesh Amin MD Primary Care Provider + Reason for Visit * Reason Comments Mohs Surgery Mohs- L ear BCC Encounter Details Date Type Department Care Team (Late st Contact Info) Description 03/08/2024 8:00 AM EDT Office Visit [facility] Surgery [facility] [address] [place] [address] Becky Gordon MD [address] [place] [address] BCC (basal cell carcinoma), ear, left* Allergies Active Allergy Reactions Criticality Noted Date Comments Demerol Neuro complications (Please comment) High 06/14/2010 confusion Adhesive Tape Rash Low 06/14/2010 documented as of this encounter (statuses as of 03/14/2024) Medications Medication Sig Dispensed Refills Start Date [...] Additional Information Patient not taking.Reported on 03/08/2024 Fluticasone Propionate 50 MCG/ACT Nasal Suspension (Flonase)Indicatio ns:Cough SPRAY 2 SPRAYS INTO EACH NOSTRIL EVERY DAY 48 mL 2 06/26/2023 Active Metoprolol Succinate ER 25 MG Oral [...] Tablet (Lipitor)Indicatio ns:Dyslipidemia, goal LDL below 70 Take 1 Tablet by mouth daily. 90 Tablet 3 03/23/2023 4 Discontinue d(Refill) Hospital, Clinic, or Other Facility Administered Medication Ordered Dose Route Frequency Start Date End Date Status Testosterone Cypionate (Depotestosterone Cypionate) 200 MG/ML inj 100 mgIndications:Hypogonadism, male 100 mg IM QMONTH 01/11/2021 Active Cephalexin (Keflex) cap 2,000 mgIndications:BCC (basal cell carcinoma), ear, left 2000 mg OR ONCE 03/08/2024 03/08/2024 Ended documented as of this encounter (statuses as of 03/14/2024) Active Problems Problem Noted Date Diagnosed Date [...] as of this encounter (statuses as of 03/14/2024) Resolved Problems Problem Noted Date Diagnosed Date [...] as of this encounter (statuses as of 03/14/2024) Immunizations Name Administration Dates Next Due COVID-19 mRNA, LNP-s, No Pre serve, 2-Dose Series (Symphogen) 06/29/2021,12/15/2020,11/24/2020 COVID-19, LNP-s, No Preserve , Deric-sucrose, [...] Sign Reading Time Taken Comments Blood Pressure - - Pulse - - Temperature 36.4 C (97.6 F) 03/08/2024 8:01 AM ED T Respiratory Rate - - Oxygen Saturation - - Inhaled Oxygen Concentration - - Weight 93 kg (205 lb) 03/08/2024 8:01 AM EDT Height - - Body Mass Index 31.63 09/26/2023 2:01 PM EST documented in this encounter Functional Status Functional [...] Progress Notes * Becky Gordon MD - 03/08/2024 8:00 AM EDT [facility] Mohs Surgery Note (See separate transcribed operative note for further detail) History: Jhon Nelson is a 78 year old patient seen at the request of Lokesh Mayen MD for evaluation and management of the following lesion: A. Skin, Left ear, helical root, shave: Basal cell carcinoma, nodular type. Patient problem list reviewed. Patient medication/allergy lists reviewed. Examination: Jhon Nelson is alert, oriented and appears well and in no distress. The patient's skin is remarkable for: Left ear, helical root: 3.5 cm x 1.3 cm pink/white plaque Impression/Plan: Basal cell carcinoma - left ear, helical root MMS 2 g Keflex administered Standard Mohs micrographic technique was utilized to treat this tumor. Microscopic examination of the specimen allowed the Mohs surgeon, whose dual role is to function as both surgeon and pathologist, to precisely identify the location of any remaining tumor or ascertain that the tissue margins were free of tumor. This process of excision of remaining tumor, mapping, and histologic exam was repeated until the tumor was excised completely. Patient identified, procedure verified, site identified and verified with the patient. Time out completed. Surgical removal of the lesion discussed with the patient (risks and benefits, including possibility of scarring, infection, bleeding, recurrence or potential for further treatment). I have specifically identified the site with the patient. I have discussed the fact that the patient will have a scar after the procedure regardless of granulation or repair with sutures. I have discussed that the repair options can range from granulation in some cases to linear or curvilinear closures to larger flaps or grafts. There is a risk of injury to nerves causing temporary or permanent numbness or the inability to move muscles fully such as the inability to lift eyebrows. Questions answered and verbal and written consent was obtained. 3 stage(s) Anesthetic: 0.05% lidocaine with 1:100,000 epinephrine. Repair: scheduled for delayed repair (see supervisor rose grading/next encounter for details) Wound care was discussed verbally, demonstrated and printed wound instructions given as well as wound care supplies. Patient instructed to call with questions or concerns. Personal contact information provided. Follow-up: next Monday for repair Becky Gordon MD Associate, Mohs Micrographic Surgery & Dermatologic Surgery documented in this encounter Nursing Notes * Pema Carty LPN - 03/08/2024 8:03 AM EDT Referral Doctor: Malachi Hypertension History: Yes, refer to medication information for treatment. Diabetes History: No Thyroid History: Yes, refer to medication information for treatment. Bleeding Tendency: Yes, refer to medication information for treatment. Artificial Valve or Joint: Yes, No SBE Prophylaxis Required Pacemaker: yes Defibrillator: no Hepatitis/HIV Exposure: No Smoking: no Consent signed yes documented in this encounter Plan of Treatment Upcoming Encounters Date Type Department Care Team (Late st Contact Info) Description 03/18/2024 2:00 PM EDT Nurse Only MOHS Surgery [facility] [place] [address] [facility] [address] Jennifer CAAL, Nurse [address] [place] [address] 03/27/2024 12:00 PM EDT Office Visit General Internal Medicine [facility] [address] [place] [address] Lokesh Amin MD [address] [place] [address] [facility] [place] [address] 04/01/2024 2:00 PM EDT Nurse Only Ancillary [facility] [address] [place] [address] Nurse, Int Med 200 [facility] [place] [address] 04/04/2024 2:00 PM EDT Nurse Only Ancillary [facility] Jennifer [place] [address] [place] [address] Nurse, Int Med 200 [facility] [place] [address] 04/08/2024 1:30 PM EDT Office Visit Cardiology, [facility] [address] [facility] [place] [address] Fabian Mejia PA-C [address] [place] [address] 03/18/2025 10:45 AM EDT Office Visit Dermatology [facility] [place] 200 [facility] [place] [address] Lokesh Mayen MD 200 [facility] [place] [address] Scheduled Procedures Name Priority Associated Diagnoses Date/Ti me COLONOSCOPY FLEXIBLE PROXIMAL DIAGNOSTIC Recall Colon cancer screening Health Maintenance Due Date Last Done Comments Depression Screening 08/23/2023 08/23/2022 COVID-19 Vaccine ( season) 2023 10/10/2023, 03/02/2023, 02/04/2022, Additional history exists GFR 12/26/2023 06/26/2023, 0 02/2023, 08/23/2022, Additional history exists Diabetic Foot Exam 02/22/2024 02/21/2023 HbA1c 03/26/2024 09/26/2023, 060 02/2023, 08/23/2022, Additional history exists Hepatitis B (3 of 3 - 19+ 3-dose series) 03/29/2024 2023, 09/29/2023 Diabetic Eye Exam 08/01/2024 08/01/2023, , 07/25/2005 Albumin/Creatinine Ratio 09/26/2024 09/26/2023, 07/27 CKD PHOS USE SMARTSET 55875 09/26/202410/2023, 08/23/2022, 07/29/2021, Additional history exists CKD HGB USE SMARTSET 43748 10/27/202410/27, 10/27/2023, 09/26/2023, Additional history exists DTaP,Tdap,and [...] this encounter Medical Devices Implanted Type Area Division Officer Weapons Department Device Identifier Shelf Expiration Date Model / Serial / Lot Strattice [id number] (400 Units) - [id number] Implanted:Qty : 400 on 10/25/2011 at OR [facility] [place] [facility] Abdomen LIFE CELL MISTY 12/23/2012 [id number] / / [id number] Mesh Prolit Hernia [id number] - [id number] Implanted:Qty : 1 on 08/14/2012 at OR [facility] [place] [facility] Left: Abdomen [employer] 12/24/2015 [id number] / / [id number] Suture Steel 6 B&S19 M654g - [id number] Implanted:Qty : 3 on 07/10/2020 by Ag Ballesteros MD at OR [facility] [place] [facility] N/A: Sternum JNJ : [employer] 02/22/2025 M654G / / [id number] Valve Heart Aortic Epic 23mm - [id number] - [id number] Implanted:Qty : 1 on 07/10/2020 by Ag Ballesteros MD at OR [facility] N/A: Aorta ST DOMINIK : CARDIOVASCULAR [id number] 03/22/2024 [id number] 00 / [id number] / [id number] documented as of this encounter Visit Diagnoses Diagnosis BCC (basal cell carcinoma), ear, left- Primary documented in this encounter Administered Medications Inactive Administered Medications - up to 3 most recent administrations Medication Order MAR Action Action Date Dose Rate Site Cephalexin (Keflex) cap 2,000 mg 2,000 mg, Oral, ONCE, On Mon03/08/24 at 1000, For 1 dose Given 03/08/2024 4:18 PM EDT 2,000 mg documented in this [...] and were consensually agreed upon. Care Teams Eyeglass Frames Inspector Relationship Specialty Start Date End Date Lokesh Amin MD [address] [place] [address], [place] [address] PCP - General Internal Medicine 07/22/21 documented as of this encounter
--- OUTSIDE RECORDS SUMMARY | 2024-07-19 11:43 | External Medical Summary | Summary of Care ---
Author Name Unknown Organization [facility] Address [address] [place] [address] Phone [phone] Care Team Providers Care Brewing Director Name Role Phone Lokesh Amin MD Primary Care Provider + Reason for Visit * Reason Comments Wound Recheck S/p Mohs delayed Lef t ear, helical root repair on 03/11/2024 Encounter Details Date Type Department Care Team (Late st Contact Info) Description 03/18/2024 2:00 PM EDT Nurse Only MOHS Surgery [facility] [address] [place] [address] Jennifer CAAL, Nurse [address] [place] [address] Wound Recheck (S/p Mohs delayed Left ear, ... Allergies Active Allergy Reactions Criticality Noted Date Comments Demerol Neuro complications (Please comment) High 06/14/2010 confusion Adhesive Tape Rash Low 06/14/2010 documented as of this encounter (statuses as of 03/18/2024) Medications Medication Sig Dispensed Refills Start Date [...] 03/08/2024 Fluticasone Propionate 50 MCG/ACT Nasal Suspension (Flonase)Indication [...] EVERY DAY 90 Tablet 3 03/11/2024 Active Cephalexin 500 MG Oral Capsule Take 1 Capsule by mouth in the morning and 1 Capsule before bedtime. Do all this for 7 days. 14 Capsule 03/11/2024 03/18/2024 Active Hospital, Clinic, or Other Facility Administered Medication Ordered Dose Route Frequency Start Date End Date Status Testosterone Cypionate (Depotestosterone Cypionate) 200 MG/ML inj 100 mgIndications:Hypogonadism, male 100 mg IM QMONTH 01/11/2021 Active documented as of this encounter (statuses as of 03/18/2024) Active Problems Problem Noted Date Diagnosed Date [...] as of this encounter (statuses as of 03/18/2024) Resolved Problems Problem Noted Date Diagnosed Date [...] as of this encounter (statuses as of 03/18/2024) Immunizations Name Administration Dates Next Due COVID-19 mRNA, LNP-s, No Pre serve, 2-Dose Series ([employer]) 06/29/2021,12/15/2020,11/24/2020 COVID-19, LNP-s, No Preserve , Deric-sucrose, [...] as of this encounter Nursing Notes * Leah Chino LPN - 03/18/2024 3:14 PM EDT Chief Complaint Patient presents with Wound Recheck S/p Mohs delayed Left ear, helical root repair on 03/11/2024 Pt here today for wound check on left ear. Pt came in with bandage on ear from the past week. Removed bandage and applied a vinegar soak for 5-10 mins. Took photo for chart review. Per Dr. Gordon Pt to come back in one week for follow up. Applied vaseline over sutures, covered with telfa pad, coverroll tape used to secure telfa. Instructed Pt to change dressing daily for the next week. States hehas family member to help him with dressing changes. Leah Chino LPN 03/18/2024 3:40 PM MOHS Surgery [address] [address] documented in this encounter Plan of Treatment Upcoming Encounters Date Type Department Care Team (Late st Contact Info) Description 03/25/2024 1:30 PM EDT Office Visit [facility] [address] [address] Becky Gordon MD [address] [place] [address] [place] [address] 03/27/2024 12:00 PM EDT Office Visit General Internal Medicine [address] [place] [address] Lokesh Amin MD [address] [place] [address] [place] [address] 04/01/2024 2:00 PM EDT Nurse Only Ancillary [address] [place] [address] Nurse, Int Med [address] [place] [address] [place] [address] 04/04/2024 2:00 PM EDT Nurse Only Ancillary [facility] [address] [place] [address] Nurse, Int Med [address] [facility] [place] [address] 04/08/2024 1:30 PM EDT Office Visit Cardiology, [facility] [address] [place] [address] Fabian Mejia PA-C [address] [place] [address] 03/18/2025 10:45 AM EDT Office Visit Dermatology [facility] [place] [address] [place] [address] Lokesh Mayen MD [address] [facility] [place] [address] Scheduled Procedures Name Priority Associated Diagnoses Date/Ti me COLONOSCOPY FLEXIBLE PROXIMAL DIAGNOSTIC Recall Colon cancer screening Health Maintenance Due Date Last Done Comments Depression Screening 08/23/2023 08/23/2022 COVID-19 Vaccine ( season) 2023 10/10/2023, 03/02/2023, 02/04/2022, Additional history exists GFR 12/26/2023 06/26/2023, 06/0 02/2023, 08/23/2022, Additional history exists Diabetic Foot Exam 02/22/2024 02/21/2023 HbA1c 03/26/2024 09/26/2023, 06/0 02/2023, 08/23/2022, Additional history exists Hepatitis B (3 of 3 - 19+ 3-dose series) 03/29/2024 2023, 09/29/2023 Diabetic Eye Exam 08/01/2024 08/01/2023, , 07/25/2005 Albumin/Creatinine Ratio 09/26/2024 09/26/2023, 07/27 CKD PHOS USE SMARTSET 56871 09/26/20240 10/2023, 08/23/2022, 07/29/2021, Additional history exists CKD HGB USE SMARTSET 20033 10/27/202410/27, 10/27/2023, 09/26/2023, Additional history exists DTaP,Tdap,and [...] encounter Medical Devices Implanted Type Area Junior Software Engineer Device Identifier Shelf Expiration Date Model / Serial / Lot Strattice [id number] (400 Units) - [id number] Implanted:Qty : 400 on 10/25/2011 at OR [facility] [place] Abdomen LIFE CELL MISTY 12/23/2012 [id number] / / [id number] Mesh Prolit Hernia [id number] - [id number] Implanted:Qty : 1 on 08/14/2012 at OR [facility] Left: Abdomen [employer] M[employer] 12/24/2015 [id number] / / [id number] Suture Steel 6 B&S19 M654g - [id number] Implanted:Qty : 3 on 07/10/2020 by Ag Ballesteros MD at OR [facility] N/A: Sternum JNJ : [employer] 02/22/2025 M654G / / [id number] Valve Heart Aortic Epic 23mm - [id number] - [id number] Implanted:Qty : 1 on 07/10/2020 by Ag Ballesteros MD at OR [facility] N/A: Aorta ST DOMINIK : CARDIOVASCULAR [id number] 03/22/2024 [id number] 00 / [id number] / [id number] documented as of this encounter Advance Directives [...] and were consensually agreed upon. Care Teams Brewing Director Relationship Specialty Start Date End Date Lokesh Amin MD 200 [place] [address] PCP - General Internal Medicine 07/22/21 documented as of this encounter
--- OUTSIDE RECORDS SUMMARY | 2024-07-19 11:43 | External Medical Summary | Summary of Care ---
Author Name Unknown Organization [facility] Address [address] [place] [address] Phone [phone] Care Team Providers Care Director Of Payroll Name Role Phone Lokesh Amin MD Primary Care Provider + Reason for Visit * Reason Comments Surgery Encounter Details Date Type Department Care Team (Late st Contact Info) Description 03/11/2024 1:00 PM EDT Office Visit MOHS Surgery [facility] [address] [facility] [place] [address] Becky Gordon MD [address] [place] [address] BCC (basal cell carcinoma), ear, left* Allergies Active Allergy Reactions Criticality Noted Date Comments Demerol Neuro complications (Please comment) High 06/14/2010 confusion Adhesive Tape Rash Low 06/14/2010 documented as of this encounter (statuses as of 03/23/2024) Medications Medication Sig Dispensed Refills Start Date [...] for 7 days. 14 Capsule 03/11/2024 03/18/2024 Hospital, Clinic, or Other Facility Administered Medication Ordered Dose Route Frequency Start Date End Date Status Testosterone Cypionate (Depotestosterone Cypionate) 200 MG/ML inj 100 mgIndications:Hypogonadism, male 100 mg IM QMONTH 01/11/2021 Active Cephalexin (Keflex) cap 2,000 mgIndications:BCC (basal cell carcinoma), ear, left 2000 mg OR ONCE 03/11/2024 03/11/2024 Ended documented as of this encounter (statuses as of 03/23/2024) Active Problems Problem Noted Date Diagnosed Date [...] as of this encounter (statuses as of 03/23/2024) Resolved Problems Problem Noted Date Diagnosed Date [...] as of this encounter (statuses as of 03/23/2024) Immunizations Name Administration Dates Next Due COVID-19 mRNA, LNP-s, No Pre serve, 2-Dose Series ([employer]) 06/29/2021,12/15/2020,11/24/2020 COVID-19, LNP-s, No Preserve , Deric-sucrose, Ages 12+ (Pfizer) 02/04/2022 COVID-19, MRNA-LNP, 23-24, P F, 30 MCG/0.3 mL, 12 YRS AND ABOVE, IM ([facility]) 10/10/2023 Covid-19, Mrna, Lnp-s, Pf, B [...] 1 week Becky Gordon MD MOHS Surgery [address] [address] PROCEDURE NOTE Location: left ear and left [...] 1:30 PM EDT Office Visit MOHS Surgery [facility] 200 [place] [address] Becky Gordon MD [address] [place] [address] [place] [address] 03/27/2024 12:00 PM EDT Office Visit General Internal Medicine [address] [place] [address] Lokesh Amin MD [address] [place] [address] [place] [address] 04/01/2024 2:00 PM EDT Nurse Only Ancillary [facility] [place] [address] [place] [address] Nurse, Int Med [address] [place] [address] 04/04/2024 2:00 PM EDT Nurse Only Ancillary [facility] [place] [address] [place] [address] Nurse, Int Med [address] [place] [address] 04/08/2024 1:30 PM EDT Office Visit Cardiology, [facility] [address] [facility] [place] [address] Fabian Mejia PA-C [address] [place] [address] 03/18/2025 10:45 AM EDT Office Visit Dermatology [facility] [place] [address] [place] [address] Lokesh Mayen MD [address] [facility] [place] [address] Scheduled Procedures Name Priority Associated Diagnoses Date/Ti [...] 09/26/2024 09/26/2023, 07/27 CKD PHOS USE SMARTSET 38172 09/26/2024 01/0 10/2023, 08/23/2022, 07/29/2021, Additional history exists CKD HGB USE SMARTSET 82365 10/27/202410/27, 10/27/2023, 09/26/2023, Additional history exists DTaP,Tdap,and [...] this encounter Medical Devices Implanted Type Area Car Dumper Device Identifier Shelf Expiration Date Model / Serial / Lot Strattice [id number] (400 Units) - [id number] Implanted:Qty : 400 on 10/25/2011 at [place] [facility] [place] Abdomen LIFE CELL MISTY 12/23/2012 [id number] / / [id number] Mesh Prolit Hernia [id number] - [id number] Implanted:Qty : 1 on 08/14/2012 at OR [facility] [place] Left: Abdomen [employer] M[employer] 12/24/2015 [id number] / / [id number] Suture Steel 6 B&S19 M654g - [id number] Implanted:Qty : 3 on 07/10/2020 by Ag Ballesteros MD at OR [facility] [place] N/A: Sternum JNJ : [employer] 02/22/2025 M654G / / [id number] Valve Heart Aortic Epic 23mm - [id number] - [id number] Implanted:Qty : 1 on 07/10/2020 by Ag Ballesteros MD at OR [facility] [place] N/A: Aorta ST DOMINIK : CARDIOVASCULAR [id number] 03/22/2024 [id number] 00 / [id number] / [id number] documented as of this encounter Visit Diagnoses [...] consensually agreed upon. Care Teams Director Of Payroll Relationship Specialty Start Date End Date Lokesh Amin MD [address] [facility] [place] [address] PCP - General Internal Medicine 07/22/21 documented as of this encounter
--- OUTSIDE RECORDS SUMMARY | 2024-07-19 11:43 | External Medical Summary | Summary of Care ---
Author Name Unknown Organization [facility] Address [address] [place] [address] Phone [phone] Care Team Providers Care Statement Distribution Clerk Name Role Phone Lokesh Nicole MD Primary Care Provider + Reason for Visit * Reason Comments eRx-Medication Refill Encounter Details Date Type Department Care Team (Late st Contact Info) Description 03/24/2024 Refill General Internal Medicine [facility] 200 [place] [address] Lokesh Nicole MD 200 [place] [address] Cough Allergies Active Allergy Reactions Criticality Noted Date [...] EVERY DAY 48 mL 2 03/24/2024 Active Fluticasone Propionate 50 MCG/ACT Nasal Suspension (Flonase)Indicati ons:Cough SPRAY 2 SPRAYS INTO EACH NOSTRIL EVERY DAY 48 mL 2 06/26/2023 03/24/20 24 Discontinued Hospital, Clinic, or Other Facility [...] mRNA, LNP-s, No Pre serve, 2-Dose Series (sones) 06/29/2021,12/15/2020,11/24/2020 COVID-19, LNP-s, No Preserve , Deric-sucrose, Ages 12+ (sones) 02/04/2022 COVID-19, MRNA-LNP, 23-24, P F, 30 [...] encounter Miscellaneous Notes * Telephone Encounter - Porsha Cedillo [facility] - 03/24/2024 11:05 AM EDT Signed Prescriptions: Disp Refills Fluticasone Propionate 50 MCG/ACT Nasal Reyes*48 mL 2 Sig: SPRAY 2SPRAYS INTO EACH NOSTRIL EVERY DAYAuthorizing Provider: LOKESH NICOLE User: PORSHA CEDILLO documented in this encounter Plan of Treatment Upcoming Encounters Date Type Department Care Team (Late st Contact Info) Description 03/25/2024 1:30 PM EDT Office Visit MOHS Surgery [facility] 200 [place] [address] Becky Gordon MD [address] [place] [address] 03/27/2024 12:00 PM EDT Office Visit General Internal Medicine [address] [place] [address] Lokesh Nicole MD 200 [place] [address] 04/01/2024 2:00 PM EDT Nurse Only Ancillary [facility] [place] 200 [place] [address] Nurse, Int Med 200 [facility] [place] [address] 04/04/2024 2:00 PM EDT Nurse Only Ancillary [facility] [place] 200 [place] [address] Nurse, Int Med [address] [place] [address] 04/08/2024 1:30 PM EDT Office Visit Cardiology, [facility] [address] [place] [address] Fabian Mejia PA-C [address] [place] [address] 03/18/2025 10:45 AM EDT Office Visit Dermatology [facility] 200 [facility] [place] [address] Lokesh Mayen MD 200 [facility] [place] [address] Scheduled Procedures Name Priority Associated Diagnoses Date/Ti me COLONOSCOPY FLEXIBLE PROXIMAL DIAGNOSTIC Recall Colon cancer screening Health Maintenance Due Date Last Done Comments Depression Screening 08/23/2023 08/23/2022 COVID-19 Vaccine ( season) 2023 10/10/2023, 03/02/2023, 02/04/2022, Additional history exists GFR 12/26/2023 06/26/2023, 060 02/2023, 08/23/2022, Additional history exists Diabetic Foot Exam 02/22/2024 02/21/2023 HbA1c 03/26/2024 09/26/2023, 0 02/2023, 08/23/2022, Additional history exists Hepatitis B (3 of 3 - 19+ 3-dose series) 03/29/2024 2023, 09/29/2023 Diabetic Eye Exam 08/01/2024 08/01/2023, , 07/25/2005 Albumin/Creatinine Ratio 09/26/2024 09/26/2023, 07/27 CKD PHOS USE SMARTSET 28136 09/26/20240 10/2023, 08/23/2022, 07/29/2021, Additional history exists CKD HGB USE SMARTSET 33084 10/27/202410/27, 10/27/2023, 09/26/2023, Additional history exists DTaP,Tdap,and [...] this encounter Medical Devices Implanted Type Area Sheeter Operator Device Identifier Shelf Expiration Date Model / Serial / Lot Strattice [id number] (400 Units) - [id number] Implanted:Qty : 400 on 10/25/2011 at OR [facility] [place] Abdomen LIFE CELL MISTY 12/23/2012 [id number] / / [id number] Mesh Prolit Hernia [id number] - [id number] Implanted:Qty : 1 on 08/14/2012 at [facility] Left: Abdomen [employer] M[employer] 12/24/2015 [id number] / / [id number] Suture Steel 6 B&S19 M654g - [id number] Implanted:Qty : 3 on 07/10/2020 by Ag Ballesteros MD at [facility] N/A: Sternum JNJ : [employer] 02/22/2025 M654G / / [id number] Valve Heart Aortic Epic 23mm - [id number] - [id number] Implanted:Qty : 1 on 07/10/2020 by Ag Ballesteros MD at [facility] N/A: Aorta ST DOMINIK : CARDIOVASCULAR [id number] 03/22/2024 [id number] 00 / [id number] / [id number] documented as of this encounter Visit Diagnoses Diagnosis Cough documented in this encounter Advance Directives * [...] and were consensually agreed upon. Care Teams Statement Distribution Clerk Relationship Specialty Start Date End Date Lokesh Nicole MD 200 [place] [address] PCP - General Internal Medicine 07/22/21 documented as of this encounter
--- OUTSIDE RECORDS SUMMARY | 2024-07-19 11:43 | External Medical Summary | Summary of Care ---
Author Name Unknown Organization [facility] Address [address] [place] [address] Phone [phone] Care Team Providers Care Senior Microsoft Net Developer Name Role Phone Lokesh Amin MD Primary Care Provider + Reason for Visit * Reason Onset Date Comments Test Results Biopsy 02/26/2024 Encounter Details Date Type Department Care Team (Late st Contact Info) Description 02/26/2024 Telephone Dermatology [facility] [address] [facility] [address] Lokesh Mayen MD [address] [facility] [address] Test Results Biopsy Allergies Active Allergy Reactions Criticality Noted Date Comments Demerol Neuro complications (Please comment) High 06/14/2010 confusion Adhesive Tape Rash Low 06/14/2010 documented as of this encounter (statuses as of 02/27/2024) Medications Medication Sig Dispensed Refills Start Date [...] to affected area. 40 g 08/22/2022 Active Cholestyramine 4 GM Oral Packet (Questran) Take 1 Packet by mouth in the morning. Mixed with liquid. Administer other oral medications 1 hour before or 6 hours after cholestyramine.. 30 Packet 2 03/02/2023 Active Additional Information Patient taking differently:4 g Oral Daily(AM),1/2 pack every 2-3 days, Reported on 08/07/2023 Atorvastatin Calcium 10 MG Oral Tablet (Lipitor)Indication s:Dyslipidemia, goal LDL below 70 Take 1 Tablet by mouth daily. 90 Tablet 3 03/23/2023 Active Fluticasone Propionate 50 MCG/ACT Nasal Suspension [...] THE MORNING 90 Tablet 3 01/08/2024 Active Hospital, Clinic, or Other Facility Administered Medication Ordered Dose Route Frequency Start Date End Date Status Testosterone Cypionate (Depotestosterone Cypionate) 200 MG/ML inj 100 mgIndications:Hypogonadism, male 100 mg IM QMONTH 01/11/2021 Active documented as of this encounter (statuses as of 02/27/2024) Active Problems Problem Noted Date Diagnosed Date [...] as of this encounter (statuses as of 02/27/2024) Resolved Problems Problem Noted Date Diagnosed Date [...] as of this encounter (statuses as of 02/27/2024) Immunizations Name Administration Dates Next Due COVID-19 mRNA, LNP-s, No Pre serve, 2-Dose Series ([employer]) 06/29/2021,12/15/2020,11/24/2020 COVID-19, LNP-s, No Preserve , Deric-sucrose, Ages 12+ (Pfizer) 02/04/2022 COVID-19, MRNA-LNP, 23-24, P F, 30 MCG/0.3 mL, 12 YRS AND ABOVE, IM ([employer] [facility] 10/10/2023 Covid-19, Mrna, Lnp-s, Pf, B [...] money to get more. Never true 08/23/2022 Sex and Gender Information Value Date Recorded [...] encounter Miscellaneous Notes * Telephone Encounter - Mary Carreno OSA - 02/27/2024 10:54 AM EDT Called patient, scheduled Mohs surgery with Dr. Gordon on March 08. * Telephone Encounter - Martha Devries LPN - 02/26/2024 9:12 AM EDT ----- Message from Lokesh Mayen MD sent at 02/23/2024 4:45 PM EDT ----- Please inform patient of pathology report. Lesion on ear was a BCC, will require Mohs. He has had mohs in past. Please forward to Mohs scheduling once patient is aware A. Skin, Left ear, helical root, shave: Basal cell carcinoma, nodular type. documented in this encounter Plan of Treatment Upcoming Encounters Date Type Department Care Team (Late st Contact Info) Description 03/04/2024 3:00 PM EDT Nurse Only Ancillary [facility] 200 [facility] [place] [address] Nurse, Int Med 200 [facility] [place] [address] 03/08/2024 8:00 AM EDT Office Visit MOHS Surgery [facility] 200 [facility] [place] [address] Becky Gordon MD 200 [facility] [place] [address] 03/14/2024 1:00 PM EDT Office Visit [facility] [address] [facility] [address] Rain Medellin CR[facility] [address] 03/27/2024 12:00 PM EDT Office Visit General Internal Medicine [facility] 200 [facility] [place] [address] Lokesh Amin MD 200 [facility] [place] [address] 04/01/2024 2:00 PM EDT Nurse Only Ancillary [facility] 200 [facility] [place] [address] Nurse, Int Med 200 [facility] [place] [address] 04/08/2024 1:30 PM EDT Office Visit Cardiology, [facility] [address] [facility] [address] Fabian Mejia PA-C [address] [place] [address] 03/18/2025 10:45 AM EDT Office Visit [facility]atology [facility] 200 [facility] [place] [address] Lokesh Mayen MD 200 [facility] [place] [address] Scheduled Procedures Name Priority Associated Diagnoses Date/Ti [...] 2023, 09/29/2023 Diabetic Eye Exam 08/01/2024 08/01/2023, 07/04/2022 Albumin/Creatinine Ratio 09/26/2024 09/26/2023, 07/27 CKD PHOS USE SMARTSET 01552 09/26/2024/0 10/2023, 08/23/2022, 07/29/2021, Additional history exists CKD HGB USE SMARTSET 60378 10/27/202410/27, 10/27/2023, 09/26/2023, Additional history exists DTaP,Tdap,and [...] this encounter Medical Devices Implanted Type Area Atomic Physics Professor Device Identifier Shelf Expiration Date Model / Serial / Lot Strattice [id number] (400 Units) - [id number] Implanted:Qty : 400 on 10/25/2011 at [place] [facility] [place] Abdomen LIFE CELL MISTY 12/23/2012 [id number] / / [id number] Mesh Prolit Hernia [id number] - [id number] Implanted:Qty : 1 on 08/14/2012 at OR [facility] [place] Left: Abdomen [employer] M[employer] 12/24/2015 [id number] / / [id number] Suture Steel 6 B&S19 M654g - [id number] Implanted:Qty : 3 on 07/10/2020 by Ag Ballesteros MD at OR [facility] [place] N/A: Sternum JNJ : [employer] 02/22/2025 M654G / / [id number] Valve Heart Aortic Epic 23mm - [id number] - [id number] Implanted:Qty : 1 on 07/10/2020 by Ag Ballesteros MD at OR [facility] [place] N/A: Aorta ST DOMINIK : CARDIOVASCULAR [id number] 03/22/2024 [id number]- 00 / [id number] / [id number] documented as of this encounter Advance Directives [...] were consensually agreed upon. Care Teams Senior Microsoft Net Developer Relationship Specialty Start Date End Date Lokesh Amin MD [address] [place] [address], [place] [address] PCP - General Internal Medicine 07/22/21 documented as of this encounter
--- OUTSIDE RECORDS SUMMARY | 2024-07-19 11:43 | External Medical Summary | Summary of Care ---
Author Name Unknown Organization [facility] Address [address] [place] [facility] [place] [address] Phone [phone] Care Team Providers Care Skating Rink Ice Maker Name Role Phone Lokesh Nicole MD Primary Care Provider + Reason for Visit * Reason Comments Follow Up 1 year for full skin exam, no concerns Encounter Details Date Type Department Care Team (Late st Contact Info) Description 02/22/2024 11:00 AM EDT Office Visit Dermatology [facility] 200 [place] [address] Lokesh Mayen MD [address] [place] [address] Actinic skin damage*; Skin neoplasm; Seborrheic keratoses; Hx of squamous cell carcinoma; Scar; Actinic keratosis Allergies Active Allergy Reactions Criticality Noted Date Comments Demerol Neuro complications (Please comment) High 06/14/2010 confusion Adhesive Tape Rash Low 06/14/2010 documented as of this encounter (statuses as of 02/22/2024) Medications Medication Sig Dispensed Refills Start Date [...] as of this encounter (statuses as of 02/22/2024) Active Problems Problem Noted Date Diagnosed Date [...] as of this encounter (statuses as of 02/22/2024) Resolved Problems Problem Noted Date Diagnosed Date [...] as of this encounter (statuses as of 02/22/2024) Immunizations Name Administration Dates Next Due COVID-19 mRNA, LNP-s, No Pre serve, 2-Dose Series ([employer]) 06/29/2021,12/15/2020,11/24/2020 COVID-19, LNP-s, No Preserve , Deric-sucrose, Ages 12+ ([employer]) 02/04/2022 COVID-19, MRNA-LNP, 23-24, P F, 30 [...] of this encounter Progress Notes * Lokesh Mayen MD - 02/22/2024 11:10 AM EDT SUBJECTIVE: Chief Complaint: Chief Complaint Patient presents with Follow Up 1 year for full skin exam, no concerns HPI: Jhon Nelson is a 78 year old male seen for a full skin check for history of nonmelanoma skin cancer. Patient with no concerns. Denies any spots that are itching, burning, and bleeding. Denies any spots that are changing. 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 Left ear, helical root - eroded plaque - r/o bcc Right restorationist x2, right forehead, left cheek, left calf x2 - x6 total gritty erythematous macules/papules Well-healed scar(s) at primary site(s) without evidence of recurrence Scattered on face, chest, back - diffuse mottled hypopigmented and hyperpigmented macules without significant irregularity. Associated telangiectasias At the trunk and extremities are several scattered thomas/brown hyperkeratotic stuck on appearing waxypapules. ASSESSMENT/PLAN: Skin neoplasm(s) - Shave biopsy of the following lesion(s) A. Left ear, helical root - eroded plaque - r/o bcc Procedure - Tangential biopsy of skin Biopsy by shave was recommended for the lesion(s) noted above to establish and confirm diagnosis. The procedure, risks, benefits, alternatives and expected outcomes were discussed with the patient and consent was obtained. Time out called. Patient identified, procedure verified, site(s) identified and verified. Patient and staff present in agreement. Area prepped with alcohol and anesthetized using 0.5% lidocaine with epinephrine at 1:200,000 concentration. Biopsy of lesion(s) performed. 20% AlCl and bandaging applied. Specimen(s) sent to pathology. Patient instructed in routine post-op care. Actinic keratosis -The diagnosis and malignant potential of the lesion was explained. Treatment options were reviewedincluding cryotherapy, topical medications, and observation. All questions were addressed. Procedure - Cryotherapy (Premalignant Destruction) -The patient would like to proceed with cryosurgery;Cryosurgery explained to the patient, consent obtained, patient, site and procedure verified, and then cryotherapy was performed with Liquid Nitrogen via cryo spray unit to 6 lesions. Location noted in physical exam. Post op course explained. -Discussed that if any of these lesions fail to completely resolve after treatment patient should call me for re-evaluation Scar(s), History of Nonmelanoma Skin Cancer - Well healed scar(s) with no evidence of recurrence - Recommended periodic skin exams and instructed to call clinic if patient notices any changing lesions, including rapid enlargement, changes in color or shape or symptoms, bleeding, or other concerns. The common features and behavior of non-melanoma skin cancers (e.g. basal cell carcinoma/squamouscell carcinoma) as well as the features of melanoma were also reviewed. -Daily sun protection recommended including physical (i.e. clothing) and chemical blockers. Broad spectrum sunscreens with at least SPF 30 for UVA and UVA protection were recommended. Chronic Actinic Damage - Discussed that skin changes are due to chronic sun exposure. - Daily sun protection recommended as discussed above Seborrheic keratoses - The benign nature of these lesions was discussed with the patient and that no treatment is indicated today. Lokesh Mayen MD Ref: SELF[[id number]] NO STREET ADDRESS AVAILABLE None (office) None (fax) PCP: LOKESH NICOLE [address] [facility] [place] [address] [phone] documented in this encounter Nursing Notes * Martha Devries LPN - 02/22/2024 11:10 AM EDT Patient identified by full name and date of . Chief Complaint Patient presents with Follow Up 1 year for full skin exam, no concerns documented in this encounter Plan of Treatment Upcoming Encounters Date Type Department Care Team (Late st Contact Info) Description 03/04/2024 3:00 PM EDT Nurse Only Ancillary [facility] [place] [address] [facility] [address] [place] [address] Nurse, Int Med 200 [facility] [place] [address] 03/27/2024 12:00 PM EDT Office Visit General Internal Medicine [facility] [address] [facility] [place] [address] Lokesh Nicole MD 200 [facility] [place] [address] 04/01/2024 2:00 PM EDT Nurse Only Ancillary [facility] [address] [facility] [place] [address] Nurse, Int Med [address] [facility] [place] [address] 04/08/2024 1:30 PM EDT Office Visit Cardiology, [facility] [address] [facility] [place] [address] Fabian Mejia PA-C [address] [facility] [place] [address] 03/18/2025 10:45 AM EDT Office Visit Dermatology [facility] [place] [address] [facility] [place] [address] Lokesh Mayen MD [address] [facility] [place] [address] Pending Results Name Type Priority Associated Diagnoses Date /Time SURGICAL PATHOLOGY Pathology Routine Skin neoplasm 02/22/2024 11:41 AM EDT Scheduled Procedures Name Priority Associated Diagnoses [...] 09/26/2024 09/26/2023, 07/27 CKD PHOS USE SMARTSET 51657 09/26/202410/2023, 08/23/2022, 07/29/2021, Additional history exists CKD HGB USE SMARTSET 30370 10/27/202410/27, 10/27/2023, 09/26/2023, Additional history exists DTaP,Tdap,and [...] this encounter Medical Devices Implanted Type Area Nuclear Physician Device Identifier Shelf Expiration Date Model / Serial / Lot Korey [id number] (400 Units) - [id number] Implanted:Qty : 400 on 10/25/2011 at OR [facility] LIFE [employer] MISTY 12/23/2012 / / [id number] Mesh Prolit Hernia [id number] - [id number] Implanted:Qty : 1 on 08/14/2012 [place] [facility] [place] Left: Abdomen [employer] M[employer] 12/24/2015 [id number] / / [id number] Suture Steel 6 B&S19 M654g - [id number] Implanted:Qty : 3 on 07/10/2020 by Ag Ballesteros MD at [place] [facility] [place] N/A: Sternum JNJ : [employer] 02/22/2025 M654G / / [id number] Valve Heart Aortic Epic 23mm - [id number] - [id number] Implanted:Qty : 1 on 07/10/2020 by Ag Ballesteros MD at [place] [facility] [place] N/A: Aorta ST DOMINIK : CARDIOVASCULAR [id number] 03/22/2024 [id number]- 00 / [id number] / [id number] documented as of this encounter Visit Diagnoses Diagnosis Actinic skin damage- Primary Other dermatitis due to solar radiation Skin neoplasm Neoplasm of unspecified nature of bone, soft tissue, and skin Seborrheic keratoses Hx of squamous cell carcinoma Personal history of malignant neoplasm of other site Scar Scar condition and fibrosis of skin Actinic keratosis documented in this encounter Advance Directives * [...] and were consensually agreed upon. Care Teams Skating Rink Ice Maker Relationship Specialty Start Date End Date Lokesh Nicole MD 200 [facility] [place] [address] PCP - General Internal Medicine 07/22/21 documented as of this encounter
--- OUTSIDE RECORDS SUMMARY | 2024-07-19 11:43 | External Medical Summary | Summary of Care ---
Author Name Unknown Organization [facility] Address [address] [place] [address] Phone [phone] Care Team Providers Care Disease Case Manager Name Role Phone Lokesh Amin MD Primary Care Provider + Reason for Visit * Reason Onset Date Comments Test Results Biopsy 02/26/2024 Encounter Details Date Type Department Care Team (Late st Contact Info) Description 02/26/2024 Telephone Dermatology [facility] [address] [facility] [address] Lokesh Mayen [facility] [address] [facility] [address] Test Results Biopsy Allergies Active Allergy Reactions Criticality Noted Date Comments Demerol Neuro complications (Please comment) High 06/14/2010 confusion Adhesive Tape Rash Low 06/14/2010 documented as of this encounter (statuses as of 02/26/2024) Medications Medication Sig Dispensed Refills Start Date [...] as of this encounter (statuses as of 02/26/2024) Active Problems Problem Noted Date Diagnosed Date [...] as of this encounter (statuses as of 02/26/2024) Resolved Problems Problem Noted Date Diagnosed Date [...] as of this encounter (statuses as of 02/26/2024) Immunizations Name Administration Dates Next Due COVID-19 mRNA, LNP-s, No Pre serve, 2-Dose Series ([employer]) 06/29/2021,12/15/2020,11/24/2020 COVID-19, LNP-s, No Preserve , Deric-sucrose, Ages 12+ (Pfizer) 02/04/2022 COVID-19, MRNA-LNP, 23-24, P F, 30 MCG/0.3 mL, 12 YRS AND ABOVE, IM ([facility] 10/10/2023 Covid-19, Mrna, Lnp-s, Pf, [...] encounter Miscellaneous Notes * Telephone Encounter - Martha Devries LPN [...] 03/04/2024 3:00 PM EDT Nurse Only Ancillary Yaneth Rodriguez Dittmer [address] [place] [address] Nurse, Int Med 200 [facility] [place] [address] 03/27/2024 12:00 PM EDT Office Visit General Internal Medicine [facility] 200 [facility] [place] [address] Lokesh Amin MD 200 [facility] [place] [address] 04/01/2024 2:00 PM EDT Nurse Only Ancillary [facility] 200 [facility] [place] [address] Nurse, Int Med 200 [facility] [place] [address] 04/08/2024 1:30 PM EDT Office Visit Cardiology, [facility] [address] [place] [address] Fabian Mejia PA-Gregory [address] [facility] [place] [address] 03/18/2025 10:45 AM EDT Office Visit Dermatology [facility] 200 [facility] [place] [address] Lokesh Mayen MD 200 [facility] [place] [address] Scheduled Procedures Name Priority Associated Diagnoses Date/Ti [...] 09/26/2024 09/26/2023, 07/27 CKD PHOS USE SMARTSET 69234 09/26/202410/2023, 08/23/2022, 07/29/2021, Additional history exists CKD HGB USE SMARTSET 01846 10/27/202410/27, 10/27/2023, 09/26/2023, Additional history exists DTaP,Tdap,and [...] this encounter Medical Devices Implanted Type Area Optical Brightener Maker Helper Device Identifier Shelf Expiration Date Model / Serial / Lot Strattice [id number] (400 Units) - [id number] Implanted:Qty : 400 on 10/25/2011 at OR [facility] Abdomen LIFE CELL MISTY 12/23/[id number] / / [id number] Mesh Prolit Hernia [id number] - [id number] Implanted:Qty : 1 on 08/14/2012 at OR [facility] Left: Abdomen [employer] M[employer] 12/24/2015 [id number] / / [id number] Suture Steel 6 B&S19 M654g - [id number] Implanted:Qty : 3 on 07/10/2020 by Ag Ballesteros MD at OR [facility] N/A: Sternum JNJ : [employer] 02/22/2025 M654G / / [id number] Valve Heart Aortic Epic 23mm - [id number] - [id number] Implanted:Qty : 1 on 07/10/2020 by Ag Ballesteros MD at OR [facility] N/A: Aorta ST DOMINIK : CARDIOVASCULAR [id number] 03/22/2024 [id number] / [id number] / [id number] documented as of this encounter Advance Directives [...] and were consensually agreed upon. Care Teams Disease Case Manager Relationship Specialty Start Date End Date Lokesh Amin MD 200 [place] [address] PCP - General Internal Medicine 07/22/21 documented as of this encounter
--- OUTSIDE RECORDS SUMMARY | 2024-07-19 11:43 | External Medical Summary | Summary of Care ---
Author Name Unknown Organization [facility] Address [address] [place] [address] Phone [phone] Care Team Providers Care Store Hand Name Role Phone Lokesh Amin MD Primary Care Provider + Reason for Visit * Reason Comments eRx-Medication Refill Encounter Details Date Type Department Care Team (Late st Contact Info) Description 03/10/2024 [facility]ill [facility] [address] [facility] [phone] Lokesh Amin MD [address] [place] [address] Dyslipidemia, goal LDL below 70 Allergies Active Allergy Reactions Criticality Noted Date Comments Demerol Neuro complications (Please comment) High 06/14/2010 confusion Adhesive Tape Rash Low 06/14/2010 documented as of this encounter (statuses as of 03/11/2024) Medications Medication Sig Dispensed Refills Start Date [...] EVERY DAY 90 Tablet 3 03/11/2024 Active Atorvastatin Calcium 10 MG Oral Tablet [...] as of this encounter (statuses as of 03/11/2024) Active Problems Problem Noted Date Diagnosed Date [...] as of this encounter (statuses as of 03/11/2024) Resolved Problems Problem Noted Date Diagnosed Date [...] as of this encounter (statuses as of 03/11/2024) Immunizations Name Administration Dates Next Due COVID-19 mRNA, LNP-s, No Pre serve, 2-Dose Series ([employer]) 06/29/2021,12/15/2020,11/24/2020 COVID-19, LNP-s, No Preserve , Deric-sucrose, [...] encounter Miscellaneous Notes * Telephone Encounter - Michelle Painting PA-C - 03/11/2024 11:14 AM EDTSigned Prescriptions: Disp Refills Atorvastatin Calcium 10 MG Oral Tablet (Li*90 Tab*3 Sig: TAKE 1 TABLET BY MOUTH EVERY DAY Authorizing Provider: MICHELLE PAINTING * Telephone Encounter - Norberto Alex RN - 03/11/2024 11:10 AM EDTPending Prescriptions: Disp Refills Atorvastatin Calcium 10 MG Oral Tablet [Ph*90 Tab*3 Sig: TAKE 1 TABLET BY MOUTH EVERY DAY * Telephone Encounter - Norberto Alex RN - 03/11/2024 11:09 AM EDT Pending Prescriptions: Disp Refills Atorvastatin Calcium 10 MG Oral Tablet (L*90 Tab*3 Sig: TAKE 1 TABLET BY MOUTH EVERY DAY Last Visit: 08/07/2023 (in office), Visit date not found (telemedicine) Next Visit: 04/08/2024 Last medication order date: 03/23/2023 Have you choosen a preferred pharm?? yes Patient Active Problem List Diagnosis Impotence of organic origin Incisional hernia Esophageal reflux Hypogonadism, male Osteoarthritis of right hip LVH (left ventricular hypertrophy) HTN, goal below 140/90 Aortic valve regurgitation Heart failure, diastolic, due to HTN ([facility]) S/P AVR (aortic valve replacement) Left carotid stenosis Stage 3a chronic kidney disease Cardiac pacemaker in situ PAF (paroxysmal atrial fibrillation) ([facility]) Type 2 diabetes mellitus with hemoglobin A1c goal of less than 8.0% ([facility]) Chronic diastolic congestive heart failure ([facility]) Labs: Lab Results Component Value Date/Time CREATININE - [facility] 1.2 06/26/2023 10:25 AM CREATININE - [facility] 1.3 (H) 10/13/2020 11:39 AM CREATININE, 24 HOUR URINE - [facility] 2.117 (H) 08/21/1998 09:05 AM CREATININE, RANDOM URINE - [facility] 19 09/26/2023 02:26 PM CREATININE, RANDOM URINE - [facility] 31 05/07/2014 02:45 PM CREATININE-OUTSIDE LAB 1.25 12/19/2017 12:00 AM Lab Results Component Value Date/Time POTASSIUM - [facility] 3.9 06/26/2023 10:25 AM POTASSIUM - [facility] 4.6 10/13/2020 11:39 AM POTASSIUM POCT - [facility] 3.5 07/10/2020 03:48 PM POTASSIUM, WHOLE BLOOD - [facility] 3.9 07/10/2020 04:56 PM POTASSIUM-OUTSIDE LAB 3.0 (A) 12/13/2015 12:00 AM Lab Results Component Value Date/Time TSH - [facility] 2.55 12/03/2021 02:57 PM TSH - [facility] 1.93 10/13/2020 11:39 AM Lab Results Component Value Date/Time LDL CHOLESTEROL (CALCULATED) - [facility] 36 06/26/2023 10:25 AM LDL CHOLESTEROL (CALCULATED) - [facility] 76 02/08/2022 10:20 AM LDL CHOLESTEROL (CALCULATED) - [facility] 53 02/25/2020 12:36 PM LDL CHOLESTEROL (CALCULATED) - [facility] 80 02/19/2015 09:45 AM LDL CHOLESTEROL (DIRECT MEASURE) - [facility] 91 02/28/2023 10:16 AM LDL CHOLESTEROL (DIRECT MEASURE) - [facility] 79 03/30/2021 11:43 AM LDL CHOLESTEROL (DIRECT MEASURE) - [facility] NOT APPLICABLE 02/25/2020 12:36 PM LDL CHOLESTEROL (DIRECT MEASURE) - [facility] NOT APPLICABLE 02/19/2015 09:45 AM Lab Results Component Value Date/Time ALT - [facility] 36 06/26/2023 10:25 AM ALT - [facility] 33 10/13/2020 11:39 AM ALT-OUTSIDE LAB 57 12/10/2015 12:00 AM Hemoglobin AIC Results: Lab Results Component Value Date/Time HEMOGLOBIN A1C - [facility] 6.7 (H) 09/26/2023 02:25 PM HEMOGLOBIN A1C - [facility] 6.7 (H) 02/28/2023 10:16 AM HEMOGLOBIN A1C - [facility] 6.8 (H) 08/23/2022 03:39 PM HEMOGLOBIN A1C - [facility] 6.0 (H) 07/02/2020 04:24 PM HEMOGLOBIN A1C - [facility] 5.6 02/26/2020 04:06 PM HEMOGLOBIN A1C - [facility] 5.6 01/08/2019 03:14 PM documented in this encounter Plan of Treatment Upcoming Encounters Date Type Department Care Team (Late st Contact Info) Description 03/14/2024 1:00 PM EDT Office Visit Gastroenterology, [facility] [address] [place] [address] Rain Medellin CRNP [address] [place] [address] 03/27/2024 12:00 PM EDT Office Visit General Internal Medicine [facility] [address] [place] [address] Lokesh Amin MD [address] [facility] [place] [address] 04/01/2024 2:00 PM EDT Nurse Only Ancillary [facility] [address] [place] [address] Nurse, Int Med [address] [place] [address] 04/04/2024 2:00 PM EDT Nurse Only Ancillary [facility] [place] [address] [place] [address] Nurse, Int Med [address] [facility] [place] [address] 04/08/2024 1:30 PM EDT Office Visit Cardiology, [facility] [address] [place] [address] Michelle Painting PA-C [address] [place] [address] 03/18/2025 10:45 AM EDT Office Visit Dermatology [facility] [address] [place] [address] Lokesh Mayen MD [address] [place] [address] Scheduled Procedures Name Priority Associated Diagnoses Date/Ti [...] 09/26/2024 09/26/2023, 07/27 CKD PHOS USE SMARTSET 01962 09/26/202410/2023, 08/23/2022, 07/29/2021, Additional history exists CKD HGB USE SMARTSET 13833 10/27/202410/27, 10/27/2023, 09/26/2023, Additional history exists DTaP,Tdap,and [...] encounter Medical Devices Implanted Type Area Event Management Consultant Device Identifier Shelf Expiration Date Model / Serial / Lot Omegattmagnolia [id number] (400 Units) - [id number] Implanted:Qty : 400 on 10/25/2011 at [place] [facility] [place] Abdomen LIFE CELL MISTY 12/23/[id number] / / [id number] Mesh Prolit Hernia [id number] - [id number] Implanted:Qty : 1 on 08/14/2012 at [place] [facility] Left: Abdomen [employer] M[employer] 12/24/2015 [id number] / / [id number] Suture Steel 6 B&S19 M654g - [id number] Implanted:Qty : 3 on 07/10/2020 by Ag Ballesteros MD at [place] [facility] N/A: Sternum JNJ : [employer] 02/22/2025 M654G / / [id number] Valve Heart Aortic Epic 23mm - [id number] - [id number] Implanted:Qty : 1 on 07/10/2020 by Ag Ballesteros MD at [place] [facility] N/A: Aorta ST DOMINIK : CARDIOVASCULAR [id number] 03/22/2024 [id number] 00 / [id number] / [id number] documented as of this encounter Visit Diagnoses Diagnosis Dyslipidemia, goal LDL below 70 Other and unspecified hyperlipidemia documented in this encounter Advance Directives * [...] and were consensually agreed upon. Care Teams Store Hand Relationship Specialty Start Date End Date Lokesh Amin MD 200 [place] [address] PCP - General Internal Medicine 07/22/21 documented as of this encounter
--- OUTSIDE RECORDS SUMMARY | 2024-07-19 11:43 | External Medical Summary | Summary of Care ---
Author Name Unknown Organization [facility] Address [address] [place] [address] Phone [phone] Care Team Providers Care Rose Grading Supervisor Name Role Phone Lokesh Amin MD Primary Care Provider + Encounter Details Date Type Department Care Team (Late st Contact Info) Description 03/04/2024 3:00 PM EDT Nurse Only Ancillary [facility] [place] [address] [place] [phone] [facility], Int Med [facility] [address] Allergies Active Allergy Reactions Criticality Noted Date Comments Demerol Neuro complications (Please comment) High 06/14/2010 confusion Adhesive Tape Rash Low 06/14/2010 documented as of this encounter (statuses as of 03/04/2024) Medications Medication Sig Dispensed Refills Start Date [...] as of this encounter (statuses as of 03/04/2024) Active Problems Problem Noted Date Diagnosed Date [...] as of this encounter (statuses as of 03/04/2024) Resolved Problems Problem Noted Date Diagnosed Date [...] as of this encounter (statuses as of 03/04/2024) Immunizations Name Administration Dates Next Due COVID-19 mRNA, LNP-s, No Pre serve, 2-Dose Series ([employer] 06/29/2021,12/15/2020,11/24/2020 COVID-19, LNP-s, No Preserve , Deric-sucrose, Ages 12+ ([employer] 02/04/2022 COVID-19, MRNA-LNP, 23-24, P F, 30 MCG/0.3 mL, 12 YRS AND ABOVE, IM ([facility]) 10/10/2023 Covid-19, Mrna, Lnp-s, Pf, B ivalent, [...] Description 03/08/2024 8:00 AM EDT Office Visit [facility] 200 [facility] [address] Becky Gordon MD [address] [place], [place] [address] [address] 03/14/2024 1:00 PM EDT Office Visit Gastroenterology, [facility] [address] [place] [address] Rain Medellin CRNP [address] [address] 03/27/2024 12:00 PM EDT Office Visit General Internal Medicine [facility] 200 [facility] [address] Lokesh Amin MD 200 [place] [address] 04/01/2024 2:00 PM EDT Nurse Only Ancillary [facility] Jennifer [place] [address] [place] [address] Nurse, Int Med 200 [facility] [place] [address] 04/04/2024 2:00 PM EDT Nurse Only Ancillary [facility] [place] [address] [facility] [place] [address] Nurse, Int Med 200 [facility] [place], [place] [address] 04/08/2024 1:30 PM EDT Office Visit Cardiology, [facility] [address] [place] [address] Fabian Mejia PA-C [address] [place] [address] 03/18/2025 10:45 AM EDT Office Visit Dermatology [facility] [place] 200 [facility] [place], [place] [address] Lokesh Mayen MD 200 [facility] [place], [place] [address] Scheduled Procedures Name Priority Associated Diagnoses Date/Ti [...] 09/26/2024 09/26/2023, 07/27 CKD PHOS USE SMARTSET 07568 09/26/202410/2023, 08/23/2022, 07/29/2021, Additional history exists CKD HGB USE SMARTSET 85576 10/27/202410/27, 10/27/2023, 09/26/2023, Additional history exists DTaP,Tdap,and [...] this encounter Medical Devices Implanted Type Area Process Engineering Manager Device Identifier Shelf Expiration Date Model / Serial / Lot Strattice [id number] (400 Units) - [id number] Implanted:Qty : 400 on 10/25/2011 at OR [facility] [place] Abdomen LIFE CELL MISTY 12/23/[id number] / / [id number] Mesh Prolit Hernia [id number] - [id number] Implanted:Qty : 1 on 08/14/2012 at OR [facility] Left: Abdomen [employer] M[employer] 12/24/2015 [id number] / / [id number] Suture Steel 6 B&S19 M654g - [id number] Implanted:Qty : 3 on 07/10/2020 by Ag Ballesteros MD at OR [facility] N/A: Sternum JNJ : [employer] 02/22/2025 M654G / / QGBABE Valve Heart Aortic Epic 23mm - [id number] - [id number] Implanted:Qty : 1 on 07/10/2020 by Ag Ballesteros MD at OR [facility] N/A: Aorta ST DOMINIK : CARDIOVASCULAR [id number] 03/22/2024 [id number]- 00 / [id number] / [id number] documented as of this encounter Administered Medications Active Administered Medications - up to 3 most recent administrations Medication Order MAR Action Action Date Dose Rate Site Testosterone Cypionate (Depotestosterone Cypionate) 200 MG/ML inj 100 mg 100 mg, Intramuscular, QMONTH, First dose on 01/11/21 at 1545, Until Discontinued Given 03/04/2024 3:17 PM EDT 100 mg Dorsogluteal Left Given 02/02/2024 11:57 AM EDT 100 mg D orsogluteal Left Given 01/02/2024 2:02 PM EDT 100 mg Do rsogluteal Left [...] and were consensually agreed upon. Care Teams Rose Grading Supervisor Relationship Specialty Start Date End Date Doberstein, Lokesh F, MD 200 [place] [address] PCP - General Internal Medicine 07/22/21 documented as of this encounter
--- OUTSIDE RECORDS SUMMARY | 2024-07-19 11:43 | External Medical Summary | Summary of Care ---
Author Name Unknown Organization [facility] Address [address] [place] [address] Phone [phone] Care Team Providers Care Hat Band Attacher Name Role Phone Lokesh Amin MD Primary Care Provider + Encounter Details Date Type Department Care Team (Late st Contact Info) Description 02/29/2024 Result Scan Unspecified Department Ancelmo Olvera MD [address] [place] [address] <No scans attached> Allergies Active Allergy Reactions Criticality Noted Date Comments Demerol Neuro complications (Please comment) High 06/14/2010 confusion Adhesive Tape Rash Low 06/14/2010 documented as of this encounter (statuses as of 02/29/2024) Medications Medication Sig Dispensed Refills Start Date [...] as of this encounter (statuses as of 02/29/2024) Active Problems Problem Noted Date Diagnosed Date [...] as of this encounter (statuses as of 02/29/2024) Resolved Problems Problem Noted Date Diagnosed Date [...] as of this encounter (statuses as of 02/29/2024) Immunizations Name Administration Dates Next Due COVID-19 mRNA, LNP-s, No Pre serve, 2-Dose Series ([employer]) 06/29/2021,12/15/2020,11/24/2020 COVID-19, LNP-s, No Preserve , Deric-sucrose, Ages 12+ (Pfizer) 02/04/2022 COVID-19, MRNA-LNP, 23-24, P F, 30 MCG/0.3 mL, 12 YRS AND ABOVE, IM ([employer]) 10/10/2023 Covid-19, Mrna, Lnp-s, Pf, B ivalent, 30 Mcg, IM, 12 yrs and above ([employer]) 03/02/2023 Hepatitis B, 20+ yrs 2023,09/29/2023 Pneumococcal [...] 03/04/2024 3:00 PM EDT Nurse Only Ancillary [facility] [address] [facility] [place] [address] Nurse, Int Med [address] [facility] [place] [address] 03/08/2024 8:00 AM EDT Office Visit MOHS Surgery [facility] [address] [place] [address] Becky Gordon MD 200 [facility] [place] [address] 03/14/2024 1:00 PM EDT Office Visit Gastroenterology, [facility] [address] [place] [address] Rain Medellin CRNP [address] [place] [address] 03/27/2024 12:00 PM EDT Office Visit General Internal Medicine [facility] 200 [facility] [place], [place] [address] Lokesh Amin MD 200 [facility] [place] [address] 04/01/2024 2:00 PM EDT Nurse Only Ancillary [facility] [address] [facility] [place] [address] Nurse, Int Med [address] [facility] [place] [address] 04/08/2024 1:30 PM EDT Office Visit Cardiology, [facility] [address] [facility] [place] [address] Fabian Mejia PA-C [address] [facility] [place] [address] 03/18/2025 10:45 AM EDT Office Visit Dermatology [facility] [address] [facility] [place], [place] [address] Lokesh Mayen MD 200 [facility] [place], [place] [address] Scheduled Procedures Name Priority Associated Diagnoses Date/Ti [...] 09/26/2024 09/26/2023, 07/27 CKD PHOS USE SMARTSET 46877 09/26/202410/2023, 08/23/2022, 07/29/2021, Additional history exists CKD HGB USE SMARTSET 17767 10/27/202410/27, 10/27/2023, 09/26/2023, Additional history exists DTaP,Tdap,and [...] this encounter Medical Devices Implanted Type Area Loin Trimmer Device Identifier Shelf Expiration Date Model / Serial / Lot Strattice [id number] (400 Units) - [id number] Implanted:Qty : 400 on 10/25/2011 at OR [facility] [place] Abdomen LIFE CELL MISTY 12/23/2012 [id number] / / [id number] Mesh Prolit Hernia [id number] - [id number] Implanted:Qty : 1 on 08/14/2012 at OR [facility] Left: Abdomen [employer] M[employer]Y 12/24/2015 [id number] / / [id number] Suture Steel 6 B&S19 M654g - [id number] Implanted:Qty : 3 on 07/10/2020 by Ag Ballesteros MD at OR [facility] N/A: Sternum JNJ : [employer] 02/22/2025 M654G / / [id number] Valve Heart Aortic Epic 23mm - [id number] - [id number] Implanted:Qty : 1 on 07/10/2020 by Ag Ballesteros MD at OR [facility] N/A: Aorta ST DOMINIK : CARDIOVASCULAR [id number] 03/22/2024 [id number]- 00 / [id number] / [id number] documented as of this encounter Procedures Procedure Name Priority Date/Time Associated Diagnosis Comments CARDIOLOGY SCANNED RESULT 02/29/2024 documented in this encounter Results * CARDIOLOGY SCANNED RESULT (02/29/2024) 02/29/2024 Ancelmo Olvera MD OTHER documented in this [...] and were consensually agreed upon. Care Teams Hat Band Attacher Relationship Specialty Start Date End Date Lokesh Amin MD [address] [place] [address] PCP - General Internal Medicine 07/22/21 documented as of this encounter
--- OUTSIDE RECORDS SUMMARY | 2024-07-19 11:44 | External Medical Summary | Summary of Care ---
Author Name Unknown Organization [facility] Address [address] [place] [address] Phone [phone] Care Team Providers Care Electrocardiograph Repairer Name Role Phone Lokesh Amin MD Primary Care Provider + Reason for Visit * Reason Onset Date Comments Appointment 02/21/2024 [facility] appointment Encounter Details Date Type Department Care Team (Late st Contact Info) Description 02/21/2024 Telephone Cardiology, [facility] [address] [place] [address] [facility] [address] [place] [address] Appointment ([facility] appointment ) Allergies Active Allergy Reactions Criticality Noted Date Comments Demerol Neuro complications (Please comment) High 06/14/2010 confusion Adhesive Tape Rash Low 06/14/2010 documented as of this encounter (statuses as of 02/21/2024) Medications Medication Sig Dispensed Refills Start Date [...] as of this encounter (statuses as of 02/21/2024) Active Problems Problem Noted Date Diagnosed Date [...] as of this encounter (statuses as of 02/21/2024) Resolved Problems Problem Noted Date Diagnosed Date [...] as of this encounter (statuses as of 02/21/2024) Immunizations Name Administration Dates Next Due COVID-19 mRNA, LNP-s, No Pre serve, 2-Dose Series ([employer]) 06/29/2021,12/15/2020,11/24/2020 COVID-19, LNP-s, No Preserve , Deric-sucrose, Ages 12+ ([employer]) 02/04/2022 COVID-19, MRNA-LNP, 23-24, P F, 30 [...] 65+ yrs 05/31/2019 TD, Preservative Free 09/07/2019 TDAP (age 11 and older)(Adacel) 08/24/2009 Zoster Vaccine Recombinant (Shingrix) 10/09/2020 ,03/04/2020 [...] encounter Miscellaneous Notes * Telephone Encounter - Jaida Guadarrama LPN - 02/21/2024 11:14 AM EDT MyG message sent to patient regarding cancellation of DC appointment 03/22. Patient is monitored remotely IOC not indicated at this time. documented in this encounter Plan of Treatment Upcoming Encounters Date Type Department Care Team (Late st Contact Info) Description 02/22/2024 11:00 AM EDT Office Visit [facility]atology [facility] [address] [place] [address] Lokesh Mayen MD [address] [place] [address] 03/04/2024 3:00 PM EDT Nurse Only Ancillary [facility] 200 [facility] [place] [address] Nurse, Int Med 200 [facility] [place] [address] 03/22/2024 11:00 AM EDT Cardiac Studies Cardiology, [facility] 132 [facility] [place] [address] [facility] 132 [facility] [place] [address] 03/27/2024 3:00 PM EDT Office Visit General Internal Medicine [facility] 200 [facility] [place] [address] Lokesh Amin MD 200 [facility] [place] [address] 04/01/2024 2:00 PM EDT Nurse Only Ancillary [facility] [place] 200 [facility] [place] [address] Nurse, Int Med 200 [facility] [place] [address] 04/08/2024 1:30 PM EDT Office Visit Cardiology, [facility] 132 [facility] [place] [address] Fabian Mejia PA-C [facility] [place] [address] Scheduled Procedures Name Priority Associated Diagnoses Date/Ti [...] 09/26/2024 09/26/2023, 07/27 CKD PHOS USE SMARTSET 51903 09/26/202410/2023, 08/23/2022, 07/29/2021, Additional history exists CKD HGB USE SMARTSET 85237 10/27/202410/27, 10/27/2023, 09/26/2023, Additional history exists DTaP,Tdap,and [...] this encounter Medical Devices Implanted Type Area Catalogue Clerk Device Identifier Shelf Expiration Date Model / Serial / Lot Strattice [id number] (400 Units) - [id number] Implanted:Qty : 400 on 10/25/2011 at OR [facility] [place] Abdomen LIFE CELL MISTY 12/23/[id number] / / [id number] Mesh Prolit Hernia [id number] - [id number] Implanted:Qty : 1 on 08/14/2012 at OR [facility] [place] Left: Abdomen [employer] 12/24/2015 [id number] / / [id number] Suture Steel 6 B&S19 M654g - [id number] Implanted:Qty : 3 on 07/10/2020 by Ag Ballesteros MD at OR [facility] [place] N/A: Sternum JNJ : [employer] 02/22/2025 M654G / / [id number] Valve Heart Aortic Epic 23mm - [id number] - [id number] Implanted:Qty : 1 on 07/10/2020 by Ag Ballesteros MD at OR [facility] [place] N/A: Aorta ST DOMINIK : CARDIOVASCULAR [id number] 03/22/2024 [id number] / [id number] / [id number] documented as of this encounter Advance Directives [...] and were consensually agreed upon. Care Teams Electrocardiograph Repairer Relationship Specialty Start Date End Date Lokesh Amin MD 200 [facility] [place] [address] PCP - General Internal Medicine 07/22/21 documented as of this encounter
--- OUTSIDE RECORDS SUMMARY | 2024-07-19 11:44 | External Medical Summary | Summary of Care ---
Author Name Unknown Organization [facility] Address [address] [place] [address] Phone [phone] Care Team Providers Care Shank Maker Name Role Phone Lokesh Amin MD Primary Care Provider + Encounter Details Date Type Department Care Team (Late st Contact Info) Description 02/02/2024 11:30 AM EDT Nurse Only Ancillary [facility] [place] [address] [place] [id number] [facility] [address] Arrived Allergies Active Allergy Reactions Criticality Noted Date Comments Demerol Neuro complications (Please comment) High 06/14/2010 confusion Adhesive Tape Rash Low 06/14/2010 documented as of this encounter (statuses as of 02/02/2024) Medications Medication Sig Dispensed Refills Start Date [...] 315-200 MG-UNIT PO TABS one tab daily 0 Active COLACE 100 MG PO CAPSIndications:Int estinal obstruction (HCC) one cap daily 0 12/23/2010 Active Cholecalciferol (VITAMIN D) 1000 units Tablet Take 1 Tablet by mouth in the morning. 0 09/05/2017 Active latanoprost (XALATAN) 0.005 % ophthalmic solution Instill 1 Drop into both eyes at bedtime. 11 05/28/2019 Active amoxicillin (AMOXIL) 500 MG Capsule Take 1 Capsule by mouth daily as needed. Patient takes prior to dental appointments. 0 02/25/2020 Active Albuterol Sulfate HFA 108 (90 Base) MCG/ACT Inhalation Aerosol SolutionIndications :Acute bronchospasm Inhale 2 Puffs by mouth 4 times a day. 54 g 3 07/29/2021 Active Fluorouracil 5 % External Cream (Efudex) Apply topically to affected area 2 times a day. apply to affected area. 40 g 0 08/22/2022 Active Cholestyramine 4 GM Oral Packet [...] 500 mg by mouth in the morning. 0 Active Lisinopril 5 MG Oral Tablet (Prinivil)Indicatio [...] as of this encounter (statuses as of 02/02/2024) Active Problems Problem Noted Date Diagnosed Date [...] as of this encounter (statuses as of 02/02/2024) Resolved Problems Problem Noted Date Diagnosed Date [...] as of this encounter (statuses as of 02/02/2024) Immunizations Name Administration Dates Next Due COVID-19 mRNA, LNP-s, No Pre serve, 2-Dose Series ([employer]) 06/29/2021,12/15/2020,11/24/2020 COVID-19, LNP-s, No Preserve , Deric-sucrose, Ages 12+ ([facility] [employer]) 02/04/2022 COVID-19, MRNA-LNP, 23-24, P F, 30 MCG/0.3 mL, 12 YRS AND ABOVE, IM ([facility]) 10/10/2023 Covid-19, Mrna, Lnp-s, Pf, B ivalent, [...] Years Used Date Smoking Tobacco: Former Cigars Smokeless Tobacco: Never Alcohol Use Standard Drinks/Week [...] 02/22/2024 11:00 AM EDT Office Visit Dermatology [facility] [address] [place] [address] Lokesh Mayen MD [address] [place] [address] 03/04/2024 3:00 PM EDT Nurse Only Ancillary [facility] [address] [place] [address] Nurse, Int Med [address] [facility] [place] [address] 03/22/2024 11:00 AM EDT Cardiac Studies Cardiology, [facility] [place] [address] [facility] 132 [facility] [place] [address] 03/27/2024 3:00 PM EDT Office Visit General Internal Medicine [facility] 200 [facility] [place] [address] Lokesh Amin MD 200 [facility] [place] [address] 04/01/2024 2:00 PM EDT Nurse Only Ancillary [facility] 200 [facility] [place] [address] Nurse, Int Med 200 [facility] [place] [address] 04/08/2024 1:30 PM EDT Office Visit Cardiology, [facility] [address] [place] [address] Fabian Mejia, PAParishC [address] [place] [address] Scheduled Procedures Name Priority Associated Diagnoses Date/Ti me COLONOSCOPY FLEXIBLE PROXIMAL DIAGNOSTIC Recall Colon cancer screening Health Maintenance Due Date Last Done Comments Depression Screening 08/23/2023 08/23/2022 GFR 12/26/2023 06/26/2023, 02/2023, 08/23/2022, Additional history exists Diabetic Foot Exam 02/22/2024 02/21/2023 HbA1c 03/26/2024 09/26/2023, 0 02/2023, 08/23/2022, Additional history exists Hepatitis B (3 of 3 - 19+ 3-dose series) 03/29/2024 2023, 09/29/2023 Diabetic Eye Exam 08/01/2024 08/01/2023, 07/04/2022 Albumin/Creatinine Ratio 09/26/2024 09/26/2023, 07/27 CKD PHOS USE SMARTSET 11491 09/26/20240 10/2023, 08/23/2022, 07/29/2021, Additional history exists CKD HGB USE SMARTSET 25713 10/27/202410/27, 10/27/2023, 09/26/2023, Additional history exists DTaP,Tdap,and Td Vaccines (3 - Td or Tdap) 09/07/2029 09/07/2019, 08/24/2009 Pneumococcal Vaccine: 65+ Years Completed 02/08/2016, 02/08/2012, 08/18/2004 Zoster Vaccines Completed 10/09/2020, 03/04/2020 Influenza Vaccine (FLU shot) Completed 10/2022, 06/09/2022, 06/17/2021, Additional history exists COVID-19 Vaccine Completed 10/10/2023, 04/2023, 02/04/2022, Additional history exists GARDASIL-HPV IMMUNIZATION SERIES Aged Out No longer eligible based on patient's age to complete this topic MENINGOCOCCAL (MENACTRA/MENVEO) Aged Out No longer eligible based on patient's age to complete this topic documented as of this encounter Medical Devices Implanted Type Area Turret Punch Operator Device Identifier Shelf Expiration Date Model / Serial / Lot Strattice [id number] (400 Units) - [id number] Implanted:Qty : 400 on 10/25/2011 [place] [facility]domen LIFE CELL MISTY 12/23/2012 [id number] / / [id number] Mesh Prolit Hernia [id number] - [id number] Implanted:Qty : 1 on 08/14/2012 [place] [facility] Left: Abdomen [employer] 12/24/2015 [id number] / / [id number] Suture Steel 6 B&S19 M654g - [id number] Implanted:Qty : 3 on 07/10/2020 by Ag Ballesteros MD at [place] [facility] N/A: Sternum JNJ : [employer] 02/22/2025 M654G / / [id number] Valve Heart Aortic Epic 23mm - [id number] - [id number] Implanted:Qty : 1 on 07/10/2020 by Ag Ballesteros MD at [place] [facility] N/A: Aorta ST DOMINIK : CARDIOVASCULAR [id number] 03/22/2024 [id number] / [id number] / [id number] documented as of this encounter Administered Medications Active Administered Medications - up to 3 most recent administrations Medication Order MAR Action Action Date Dose Rate Site Testosterone Cypionate (Depotestosterone Cypionate) 200 MG/ML inj 100 mg 100 mg, Intramuscular, QMONTH, First dose on Mon01/11/21 at 1545, Until Discontinued Given 02/02/2024 11:57 AM EDT 100 mg Dorsogluteal Left Given 01/02/2024 2:02 PM EDT 100 mg Do rsogluteal Left Given 12/01/2023 11:36 AM EST 100 mg D orsogluteal Left documented in this encounter Advance Directives Latest Code Status on File Code Status Date Activated Date Inactivated Comments Full Code 07/10/2020 3:38 PM 07/15/2020 5:10 PM Question Answer Comments Discussion of Advance Direct isabela occurred with: Not Discussed Code Status History Code Status Date Activated Date Inactivated Comments Full Code 01/27/2015 9:46 AM 01/27/2015 4:12 PM This or elizabeth reflects the patients wishes and were consensually agreed upon. Question Answer Comments Discussion of Advance Directives occurred with: Not Discussed Full Code 01/27/2015 6:37 AM 01/27/2015 9:46 AM This or elizabeth reflects the patients wishes and were consensually agreed upon. Full Code 08/15/2012 7:14 PM 08/17/2012 6:03 PM Thi s order reflects the patients wishes and were consensually agreed upon. Question Answer Comments Discussion of Advance Directives occurred with: Not Discussed Does the patient have a Living Will? No Does the patient have Health Care Power of Content Publisher? No Full Code 10/25/2011 5:53 PM 10/27/2011 10:01 PM This order reflects the patients wishes and were consensually agreed upon. Care Teams Shank Maker Relationship Specialty Start Date End Date Lokesh Amin MD 200 [place] [address] PCP - General Internal Medicine 07/22/21 documented as of this encounter
--- OUTSIDE RECORDS SUMMARY | 2024-07-19 12:18 | External Medical Summary | Summary of Care ---
Author Name Unknown Organization [facility] Address [address] [place] [address] Phone [phone] Care Team Providers Care Feed Preparation Operator Name Role Phone Lokesh Amin MD Primary Care Provider + Reason for Visit * Reason Onset Date Comments Advice 07/18/2024 Encounter Details Date Type Department Care Team (Late st Contact Info) Description 07/18/2024 Telephone Cardiology, [facility] [address] [facility] [place] [address] Fabian Mejia PA-C [address] [facility] [place] [address] Advice Allergies Active Allergy Reactions Criticality Noted Date Comments Demerol Neuro complications (Please comment) High 06/14/2010 confusion Adhesive Tape Rash Low 06/14/2010 documented as of this encounter (statuses as of 07/18/2024) Medications Medication Sig Dispensed Refills Start Date [...] takes prior to dental appointments. 02/25/2020 Active Metoprolol Succinate ER 25 MG Oral [...] hemoglobin A1c goal of less than 8.0% ([facility]) Use up to check sugar first thing in am and 2 hours after meals 1 Kit 04/04/2024 Active Insulin Glargine Solostar 100 UNIT/ML Subcutaneous Solution Pen-injector (Lantus SoloStar)Indicati ons:Type 2 diabetes mellitus with hemoglobin A1c goal of less than 8.0% ([facility]) Inject 10 Units under [...] before bedtime. 05/22/2024 Active OneTouch Delica Plus [id number] ons:Type 2 diabetes mellitus with hemoglobin A1c [...] on hold as of 06-05-24) 06/05/2024 Active Insulin Glargine-yfgn 100 UNIT/ML Subcutaneous Solution Pen-injector INJECT 10 UNITS UNDER THE SKIN DAILY. TITRATING DOSE - MAX DOSE 30 UNITS DAILY. DX: E11.9 07/08/2024 Active Albuterol Sulfate HFA 108 (90 Base) MCG/ACT Inhalation Aerosol SolutionIndicatio ns:Acute cough,Shortness of breath Inhale 2 Puffs by mouth every 6 hours as needed for Wheezing or Shortness of Breath. 18 g 07/18/2024 Active Benzonatate 100 MG Oral Capsule (Tessallata Diaz)Indication s:Acute cough Take 1 Capsule by mouth 3 times a day as needed for Cough. Do not cut, crush, or chew. 50 Capsule 1 07/18/2024 Active Hospital, Clinic, or Other Facility Administered Medication Ordered Dose Route Frequency Start Date End Date Status Testosterone Cypionate (Depotestosterone Cypionate) 200 MG/ML inj 100 mgIndications:Hypogonadism, male 100 mg IM QMONTH 01/11/2021 Active documented as of this encounter (statuses as of 07/18/2024) Active Problems Problem Noted Date Diagnosed Date [...] as of this encounter (statuses as of 07/18/2024) Resolved Problems Problem Noted Date Diagnosed Date Resolved Date Persistent atrial fibrillation 07/22/2020 02/01/2022 Postoperative anemia due to acute blood loss 0 03/24/2021 CKD (chronic kidney disease), stage III 07/10/2020 11/05/2020 Overview: Per CKD protocol Left carotid stenosis 07/10/20202020 Prediabetes 07/06/2020 08/24/2022 Overview: Per Prediabetes protocol Pulmonary nodule, right 02/04/2015 06/1 10/2017 Other chronic cystitis 12/26/201403/06 Urinary retention 12/26/2014 [...] as of this encounter (statuses as of 07/18/2024) Immunizations Name Administration Dates Next Due COVID-19 mRNA, LNP-s, No Pre serve, 2-Dose Series ([employer]) 06/29/2021,12/15/2020,11/24/2020 COVID-19, LNP-s, No Preserve , Deric-sucrose, Ages 12+ ([employer]) 02/04/2022 COVID-19, MRNA-LNP, 23-24, P F, 30 MCG/0.3 mL, 12 YRS AND ABOVE, IM ([employer]) 10/10/2023 Covid-19, Mrna, Lnp-s, Pf, B ivalent, 30 Mcg, IM, 12 yrs and above ([employer]) 03/02/2023 Hepatitis B, 20+ yrs 04/01/2024,2023,09/29 Pneumococcal [...] encounter Miscellaneous Notes * Telephone Encounter - Fabian Mejia PA-C - 07/18/2024 3:49 PM EDT Called and spoke with convenient care provider. Patient with URI symptoms. EKG obtained after abnormal auscultation. No palpitations or acute cardiac concerns/complaints EKG reviewed (underlying atrial fibrillation, ventricular paced rhythm, frequent PVCs). Most recent pacemaker interrogation demonstrates persistent atrial fibrillation since March 2024 with a controlled average ventricular rate Patient chronically prescribed metoprolol as well as Eliquis anticoagulation URI treatment as per convenient care provider. Okay to use albuterol which has been used in the past. Avoid decongestants. Appointment if any cardiac concerns. Fabian Mejia PA-C Department of Cardiology * Telephone Encounter - Jeff Ram LPN - 07/18/2024 3:13 PM EDT EKG available in muse. * Telephone Encounter - Rose Chan OSA - 07/18/2024 2:52 PM EDT Person calling: Haley Relationship to patient: [facility] Phone/Fax to return call: [phone] Reason for call(brief): EKG Pharmacy: NA Provider Name: Fabian Mejia PA-C Detailed message to office: Haley calling to inform doctor that pt had an EKG and office suggested he go to ER but pt refused - she would like doctor to look at EKG - tried warm transfer but no answer documented in this encounter Plan of Treatment Upcoming Encounters Date Type Department Care Team (Late st Contact Info) Description 07/18/2024 4:10 PM EDT Imaging Radiology [facility] [address] [facility] [place] [address] 08/09/2024 10:00 AM EST [facility] [address] [place] [address] Pharmacist1, [facility] [address] [place] [address] 08/09/2024 11:00 AM EST Nurse Only Ancillary [facility] [address] [place], [place] [address] Nurse, Int Med [address] [place] [address] 08/28/2024 1:30 PM EST Office Visit Gastroenterology, [facility] [address] [place] [address] Rain Medellin CRNP [address] [place] [address] 09/09/2024 2:00 PM EST Office Visit Pharmacy, [facility] [address] [place] [address] [address] Pharmacist1, [facility] [address] [place] [address] 09/09/2024 3:00 PM EST Office Visit Nephrology, [facility] [address] [place] [address] [address] Isa Long MD [address] [place] [address] 11/14/2024 2:00 PM EST Office Visit General Internal Medicine [facility] [address], [place] [address] Lokesh Amin MD [address] [place] [address] 11/14/2024 3:45 PM EST Office Visit MOHS Surgery [facility] 200 [place] [address] Becky Gordon MD [address] [place] [address] 03/18/2025 10:45 AM EDT Office Visit Dermatology [facility] [address] [place] [address] [address] Lokesh Mayen MD [address] [place], [place] [address] Scheduled Procedures Name Priority Associated Diagnoses Date/Ti [...] 03/27/2025 03/27/2024, 02/21/2023 CKD HGB USE SMARTSET 55472 04/26/202504/26, 04/26/2024, 04/15/2024, Additional history exists CKD PHOS USE SMARTSET 60484 05/29/2025 090 12/2023, 03/27/2024, 09/26/2023, Additional history [...] this encounter Medical Devices Implanted Type Area Drywall Professional Device Identifier Shelf Expiration Date Model / Serial / Lot Korey [id number] (400 Units) - [id number] Implanted:Qty : 400 on 10/25/2011 [place] [facility] [place]domen LIFE CELL MISTY 12/23/2012 / / [id number] Mesh Prolit Hernia [id number] - [id number] Implanted:Qty : 1 on 08/14/2012 [place] [facility] [place] Left: Abdomen [employer] 12/24/2015 [id number] / / [id number] Suture Steel 6 B&S19 M654g - [id number] Implanted:Qty : 3 on 07/10/2020 by Ag Ballesteros MD [place] [facility] [place] N/A: Sternum JNJ : [employer] 02/22/2025 M654G / / [id number] Valve Heart Aortic Epic 23mm - [id number] - [id number] Implanted:Qty : 1 on 07/10/2020 by Ag Ballesteros MD at [place] [facility] [place] N/A: Aorta ST DOMINIK : CARDIOVASCULAR [id number] 03/22/2024 [id number] 00 / [id number] / [id number] documented as of this encounter Advance Directives [...] and were consensually agreed upon. Care Teams Feed Preparation Operator Relationship Specialty Start Date End Date Lokesh Amin MD 200 [place] [address] PCP - General Internal Medicine 07/22/21 documented as of this encounter
--- OUTSIDE RECORDS SUMMARY | 2024-07-19 12:18 | External Medical Summary | Summary of Care ---
Author Name Unknown Organization [facility] Address [address] [place] [address] Phone [phone] Care Team Providers Care Babbitt Spinner Name Role Phone Lokesh Amin MD Primary Care Provider + Encounter Details Date Type Department Care Team (Late st Contact Info) Description 07/18/2024 Telephone [facility] [address] [place] [address] Khushboo Sánchez PA-C [address] [facility] [place] [address] Allergies Active Allergy Reactions Criticality Noted Date [...] before bedtime. 05/22/2024 Active OneTouch Delica Plus [id number] ons:Type 2 diabetes mellitus with hemoglobin A1c [...] 07/18/2024 Active Benzonatate 100 MG Oral Capsule (Tesjuan jose Diaz)Indication s:Acute cough Take 1 Capsule by [...] mRNA, LNP-s, No Pre serve, 2-Dose Series (Koozoo) 06/29/2021,12/15/2020,11/24/2020 COVID-19, LNP-s, No Preserve , Deric-sucrose, Ages 12+ (Pfizer) 02/04/2022 COVID-19, MRNA-LNP, 23-24, P F, 30 MCG/0.3 mL, 12 YRS AND ABOVE, IM ([facility]) 10/10/2023 Covid-19, Mrna, Lnp-s, Pf, B ivalent, 30 Mcg, IM, 12 yrs and above (Koozoo) 03/02/2023 Hepatitis B, 20+ yrs 04/01/2024,2023,09/29 Pneumococcal [...] encounter Miscellaneous Notes * Telephone Encounter - Haley Francisco LPN - 07/18/2024 6:05 PM EDT I identified pt by name and , verified by patient. Pt has been informed of below message and verbalized understanding. * Telephone Encounter - Khushboo Sánchez PA-C - 07/18/2024 5:13 PM EDT Please call Chang, he has pneumonia Please call pt and tell him the results and tell him that w his heart condition this is serious, heneeds to go to the ER documented in this encounter Plan of Treatment Upcoming Encounters Date Type Department Care Team (Late st Contact Info) Description 08/09/2024 10:00 AM EST Office Visit Pharmacy, [facility] [address] [place] [address] Pharmacist1, [facility] [address] [place] [address] 08/09/2024 11:00 AM EST Nurse Only Ancillary [facility] [address] [place] [address] Nurse, Int Med [address] [place] [address] 08/28/2024 1:30 PM EST Office Visit Gastroenterology, [facility] [address] [place] [address] Rain Medellin CRNP [address] [facility] [place] [address] 09/09/2024 2:00 PM EST Office Visit Pharmacy, [facility] [place] [address] [place] [address] [address] Pharmacist1, [facility] [address] [place] [address] 09/09/2024 3:00 PM EST Office Visit Nephrology, [facility] [address] [place] [address] [address] Isa oLng MD [address] [place] [address] 11/14/2024 2:00 PM EST Office Visit General Internal Medicine [facility] [address] [facility] [place] [address] Lokesh Amin MD [address] [facility] [place] [address] 11/14/2024 3:45 PM EST Office Visit MOHS Surgery [facility] [address] [place], [place] [address] Becky Gordon MD [address] [facility] [place], [place] [address] 03/18/2025 10:45 AM EDT Office Visit Dermatology [facility] [address] [facility] [place], [place] [address] Lokesh Mayen MD [address] [facility] [place], [place] [address] Scheduled Procedures Name Priority Associated Diagnoses Date/Ti [...] 03/27/2025 03/27/2024, 02/21/2023 CKD HGB USE SMARTSET 99296 04/26/202504/26, 04/26/2024, 04/15/2024, Additional history exists CKD PHOS USE SMARTSET 87154 05/29/2025 09/0 12/2023, 03/27/2024, 09/26/2023, Additional history [...] this encounter Medical Devices Implanted Type Area Physician President Device Identifier Shelf Expiration Date Model / Serial / Lot Strattice [id number] (400 Units) - [id number] Implanted:Qty : 400 on 10/25/2011 at [place] [facility] [place] Abdomen [employer] MISTY 12/23/2012 [id number] / / [id number] Mesh Prolit Hernia [id number] - [id number] Implanted:Qty : 1 on 08/14/2012 at [place] [facility] [place] Left: Abdomen [employer] 12/24/2015 [id number] / / [id number] Suture Steel 6 B&S19 M654g - [id number] Implanted:Qty : 3 on 07/10/2020 by Ag Ballesteros MD at [place] [facility] [place] N/A: Sternum JNJ : [employer] 02/22/2025 M654G / / [id number] Valve Heart Aortic Epic 23mm - [id number] - [id number] Implanted:Qty : 1 on 07/10/2020 by Ag Ballesteros MD at OR [facility] [place] N/A: Aorta ST DOMINIK : CARDIOVASCULAR [id number] 03/22/2024 [id number] / [id number] / [id number] documented as of this encounter Advance Directives [...] and were consensually agreed upon. Care Teams Babbitt Spinner Relationship Specialty Start Date End Date Lokesh Amin MD [address] [place] [address] PCP - General Internal Medicine 07/22/21 documented as of this encounter
--- NOTE | 2024-07-19 13:23 | Hospitalist Progress Note ---
Date of Service July 19, 2024 Assessment & Plan (1) Pneumonia: Plan: 78-year-old male with past medical history significant for type 2 diabetes, male hypogonadism, hypomagnesia, chronic diastolic CHF, paroxysmal atrial fibrillation, status post pacemaker, left ventricular hypertrophy, hypertension, aortic valve regurgitation, left carotid stenosis, CKD stage III, GERD, osteoarthritis, status post aortic valve replacement with bioprosthetic valve was sent in because of pneumonia. Left Lower Lobe Pneumonia Patient's presents with cough, shortness of breath and pleuritic chest pain since last week Outpatient chest x-ray concerning for left basilar and midlung pneumonia CT chest shows left lower lobe consolidation with reactive lymphadenopathy. Continue on Rocephin and doxycycline I discussed with patient to repeat CT chest in 6 to 8 weeks to follow-up to ensure resolution of the pneumonia. Patient verbalized understanding. 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 Patient underwent urgent pericardiocentesis. Rehospitalization was postpericardiotomy syndrome with pleural effusion responded to steroids and diuretics. History of intermittent AV dissociation and near syncope status post dual- chamber pacemaker implantation in 2020 Chronic diastolic CHF Continue home Lasix and spironolactone Will monitor for volume overload Hypertension On diuretics and metoprolol succinate We will monitor History of paroxysmal atrial fibrillation On metoprolol succinate and Eliquis, continue Hyperlipidemia On statin, continue Diabetes On long-acting insulin 8 units daily sliding scale Will monitor History of hypomagnesia Continue magnesium supplements Follow labs GERD On Protonix, continue DVT prophylaxis Eliquis Disposition Med/telemetry Full code. Please note the above document was generated using voice recognition software. It may contain grammatical, syntax or spelling errors. Any formal questions or concerns about the content, text or information contained within the body of t his dictation should be directly addressed to the provider for clarification Admission and Anticipated Discharge Date Admission Date: July 19, 2024 Subjective Patient seen and examined at bedside He reports mild shortness of breath on minimal exertion Reports pleuritic chest pain on deep inspiration on left lower lung field Vitals are stable and saturating well on room air Review of Systems Review of Systems: All systems reviewed & are unremarkable except as noted in Subjective Physical Exam Physical Exam: General- Not in distress Head- atraumatic Eyes- PERRL. ENT- oropharynx clear Neck- supple, no JVD. Lungs- clear to auscultation no wheezing or crackles Heart- regular rhythm; no murmur, no gallop. Abdomen- normal bowel sounds, soft, nontender, no distension Extremities- has pretibial edema, no erythema seen Neuro- alert, oriented x 3; PERRL, no facial palsy; no dysarthria; moves extremities Results & Data Results & Data Vital Signs (Past 12 Hours) Vital Signs Temp Pulse Pulse Resp BP BP Pulse Ox 07/19/24 12:47 79 07/19/24 12:34 36.7 C 74 20 119/76 97 07/19/24 10:13 72 20 117/71 94 07/19/24 08:47 73 22 137/84 07/19/24 07:17 98 H 07/19/24 07:14 99 H 20 114/86 93 07/19/24 06:30 70 22 131/73 94 07/19/24 02:29 74 20 126/77 96 07/19/24 02:15 07/19/24 02:15 73 26 H 105/69 95 07/19/24 02:02 84 27 H 105/69 94 Pulse Ox O2 Del Method O2 Del Method 07/19/24 12:47 07/19/24 12:34 Room Air 07/19/24 10:13 Room Air 07/19/24 08:47 07/19/24 07:17 07/19/24 07:14 Room Air 07/19/24 06:30 Room Air 07/19/24 02:29 Room Air 07/19/24 02:15 95 Room Air 07/19/24 02:15 Room Air 07/19/24 02:02 Room Air (1) Pneumonia Laterality: left Lung location: unspecified part of lung Pneumonia type: due to unspecified organism Qualified Code(s): J18.9 - Pneumonia, unspecified organism
[2024-07-19] MEDS: FUROSEMIDE 40 MG/4 ML VIAL IV ONE (14:49)
[2024-07-19] MEDS: guaiFENesin 600 MG TABCR PO SCH (14:49)
[2024-07-19] MEDS: LEVALBUTEROL 1.25 MG/3 ML NEB NEB PRN (15:36)
--- NOTE | 2024-07-19 16:25 | Ultrasound Report ---
BILATERAL LOWER EXTREMITY VENOUS DOPPLER CLINICAL HISTORY: Shortness of breath. rule out DVT COMPARISON STUDY: Bilateral lower extremity venous Doppler ultrasound August 10, 2020. TECHNIQUE: Sonography of the deep venous system of the bilateral lower extremities was performed. Co mpression and augmentation were evaluated. FINDINGS: The bilateral common femoral, superficial femoral and popliteal veins were compressible. A ugmentation was normal. Flow was shown within the deep calf vessels. IMPRESSION: No evidence of deep venous thrombus within the bilateral lower extremities. ACT 112: Negative or not required by law. Electronically signed by: Tom Tim M.D. 07/19/2024 4:24 PM
[2024-07-19] MEDS: cefTRIAXone SODIUM 2,000 MG/50 ML BAG IV SCH (20:26)
[2024-07-19] MEDS: LATANOPROST 0.005% OP SOLN 2.5 ML BTL OPB SCH (20:28)
--- NOTE | 2024-07-20 00:56 | Electrocardiogram Report ---
Test Reason : Blood Pressure : */* mmHG Vent. Rate : 94 BPM Atrial Rate : 312 BPM P-R Int : * ms QRS Dur : 110 ms QT Int : 364 ms P-R-T Axes : * -49 124 degrees QTcB Int : 455 ms Ventricular-paced rhythm with frequent Premature ventricular complexes Abnormal ECG When compared with ECG of 12-Aug-2020 07:06, Ventricular pacing is now present Confirmed by Glenroy Murphy ([id number]) on 07/20/2024 12:56:30 AM Referred By: Lokesh Amin Confirmed By: Glenroy Murphy
--- NOTE | 2024-07-20 10:31 | Hospitalist Progress Note ---
Date of Service July 20, 2024 Assessment & Plan (1) Pneumonia: Plan: 78-year-old male with past medical history significant for type 2 diabetes, male hypogonadism, hypomagnesia, chronic diastolic CHF, paroxysmal atrial fibrillation, status post pacemaker, left ventricular hypertrophy, hypertension, aortic valve regurgitation, left carotid stenosis, CKD stage III, GERD, osteoarthritis, status post aortic valve replacement with bioprosthetic valve was sent in because of pneumonia. Left Lower Lobe Pneumonia Patient's presents with cough, shortness of breath and pleuritic chest pain since last week Outpatient chest x-ray concerning for left basilar and midlung pneumonia CT chest shows left lower lobe consolidation with reactive lymphadenopathy. Continue on Rocephin and doxycycline I discussed with patient to repeat CT chest in 6 to 8 weeks to follow-up to ensure resolution of the pneumonia. Patient verbalized understanding. 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 Patient underwent urgent pericardiocentesis. Rehospitalization was postpericardiotomy syndrome with pleural effusion responded to steroids and diuretics. History of intermittent AV dissociation and near syncope status post dual- chamber pacemaker implantation in 2020 Acute on Chronic diastolic CHF Continue home Lasix and spironolactone Will monitor for volume overload Given extra dose of lasix. Hypertension On diuretics and metoprolol succinate We will monitor History of paroxysmal atrial fibrillation On metoprolol succinate and Eliquis, continue Hyperlipidemia On statin, continue Diabetes On long-acting insulin 8 units daily sliding scale Will monitor History of hypomagnesia Continue magnesium supplements Follow labs GERD On Protonix, continue DVT prophylaxis Eliquis Disposition Med/telemetry Full code. Time spent evaluating patient, direct bedside care, chart review, placing orders, interpretation of diagnostic studies, discussion with consultants, patient, and family members, as well as other required patient management activities is 50 minutes Please note the above document was generated using voice recognition software. It may contain grammatical, syntax or spelling errors. Any formal questions or concerns about the content, text or information contained within the body of this dictation should be directly addressed to the provider for clarification Admission and Anticipated Discharge Date Admission Date: July 19, 2024 Subjective Patient seen and examined at bedside He reports that he is feeling better compared to yesterday Pleuritic chest pain has improved No significant events overnight Review of Systems Review of Systems: All systems reviewed & are unremarkable except as noted in Subjective Physical Exam Physical Exam: General- Not in distress Head- atraumatic Eyes- PERRL. ENT- oropharynx clear Neck- supple, no JVD. Lungs- clear to auscultation no wheezing or crackles Heart- regular rhythm; no murmur, no gallop. Abdomen- normal bowel sounds, soft, nontender, no distension Extremities- has pretibial edema, no erythema seen Neuro- alert, oriented x 3; PERRL, no facial palsy; no dysarthria; moves extremities Results & Data Results & Data Vital Signs (Past 12 Hours) Vital Signs Temp Pulse Pulse Resp BP Pulse Ox O2 Del Method 07/20/24 09:10 19 97 Room Air 07/20/24 07:34 37.0 C 57 L 16 128/76 95 Room Air 07/20/24 06:52 64 07/20/24 03:37 36.8 C 57 L 18 115/75 98 Room Air 07/20/24 00:06 37 C 83 18 108/63 92 Room Air 07/19/24 22:40 105 H 18 96 Room Air (1) Pneumonia Laterality: left Lung location: unspecified part of lung Pneumonia type: due to unspecified organism Qualified Code(s): J18.9 - Pneumonia, unspecified organism
[2024-07-20] MEDS: FUROSEMIDE 40 MG/4 ML VIAL IV ONE (13:40)
[2024-07-21 03:13] VITALS: TEMP 98.4
--- NOTE | 2024-07-21 10:44 | Discharge Summary ---
Date of Service July 21, 2024 Admission HPI Per Admitting Provider 78-year-old male with past medical history significant for type 2 diabetes, male hypogonadism, hypomagnesia, chronic diastolic CHF, paroxysmal atrial fibrillation, status post pacemaker, left ventricular hypertrophy, hypertension, aortic valve regurgitation, left carotid stenosis, CKD stage III, GERD, osteoarthritis, status post aortic valve replacement with bioprosthetic valve was sent in because of pneumonia. Patient states for the last couple of weeks is not feeling good.. He was feeling some chest tightness. Since last 1 week having dry cough. Last few days he was getting more short of breath and was g etting chest pains. The chest pain is more with coughing. He went to urgent care today. Chest x-ray was done which showed pneumonia and has been advised to come to the ER. Denies any fevers. Has some mild runny nose. No dizziness. No headache. No blurred vision. No earaches. No sore throat. Appetite is okay. Feeling short of breath. No nausea ,no abdominal pain. Normal bowel and bladder movements. Currently hemodynamics are okay. Past medical history. As mentioned above. Past surgical history. Colonoscopy. Cystoscopy. Cystourethroscopy with fulguration of minor bladder tumor. Abdominal hernia repair with mesh implantation. Partial removal of colon. Appendectomy. TURP. Tonsillectomy. Cholecystectomy. Repair of incisional hernia. Replacement of aortic valve with prosthetic valve. Right total hip replacement. Social history. Quit cigarettes in 2009. 5.8 standard drinks of alcohol per week. No drug use. Family history. Father had diabetes. Heart disorder. COPD. Mother had heart disorder. Brother has hyroid disorder. Admission Exam Per Admitting Provider General- Not in distress Head- atraumatic Eyes- PERRL. ENT- oropharynx clear Neck- supple, no JVD. Lungs- clear to auscultation no wheezing or crackles Heart- regular rhythm; no murmur, no gallop. Abdomen- normal bowel sounds, soft, nontender, no distension Extremities- has pretibial edema, no erythema seen Neuro- alert, oriented x 3; PERRL, no facial palsy; no dysarthria; moves extremities Principal Diagnosis Left Lower Lobe Pneumonia Acute on Chronic diastolic CHF Discharge Exam General- Not in distress Head- atraumatic Eyes- PERRL. ENT- oropharynx clear Neck- supple, no JVD. Lungs- clear to auscultation no wheezing or crackles Heart- regular rhythm; no murmur, no gallop. Abdomen- normal bowel sounds, soft, nontender, no distension Extremities- has pretibial edema, no erythema seen Neuro- alert, oriented x 3; PERRL, no facial palsy; no dysarthria; moves extremities Discharge Data Allergies Allergy/AdvReac Type Severity Reaction Status Date / Time adhesive Allergy Mild RASH Verified 05/23/24 10:07 meperidine AdvReac Unknown HALLUCINATI Verified 05/23/24 10:07 ONS Consultations 07/18/24 22:32 ED Decision to Admit Stat Ordered Studies 07/19/24 08:50 CT chest diagnostic wo con Urgent 07/19/24 15:18 US venous doppler [facility] Routine Hospital Course (1) Pneumonia: 78-year-old male with past medical history significant for type 2 diabetes, male hypogonadism, hypomagnesia, chronic diastolic CHF, paroxysmal atrial fibrillation, status post pacemaker, left ventricular hypertrophy, hypertension, aortic valve regurgitation, left carotid stenosis, CKD stage III, GERD, osteoarthritis, status post aortic valve replacement with bioprosthetic valve was sent in because of pneumonia in out patient CXR Left Lower Lobe Pneumonia Patient's presents with cough, shortness of breath and pleuritic chest pain since last week Outpatient chest x-ray concerning for left basilar and midlung pneumonia CT chest shows left lower lobe consolidation with reactive lymphadenopathy. During the hospitalization patient was treated with IV antibiotics with improvement in his shortness of breath, pleuritic chest pain. Patient was discharged home on oral antibiotics with instructions to follow-up with PCP regarding CT chest in 6 to 8 weeks to ensure resolution of the pneumonia. Acute on Chronic diastolic CHF Noted to have bilateral lower extremity edema on admission He was treated with extra dose of Lasix during the hospitalization Patient was recommended to watch his weight closely, titrate the diuretics as needed and follow-up with his PCP. Please note the above document was generated using voice recognition software. It may contain grammatical, syntax or spelling errors. Any formal questions or concerns about the content, text or information contained within the body of this dictation should be directly addressed to the provider for clarification Total Time Total Time Spent Total Time Spent (In Minutes): 45 Total Time Includes: Examination of the Patient, Discharge Planning, Medication Reconciliation, Communication With Other Providers and Other Discharge Plan Discharge Items Patient Disposition: Home - Self-Care Reason For Visit: SOB, ,PNEUMONIA Discharge Diagnosis: Left Lower Lobe Pneumonia Activity: Resume your previous activity Non-emergency contact: Primary Care Provider Call non-emergency contact if: you have any medication questions and your symptoms worsen Follow-up/Referrals: Lokesh Amin MD [Primary Care Provider] - Diet: Regular Addtl Attending Provider Instructions: You were admitted to the hospital due to pneumonia on your left lung. You are treated with antibiotic during the hospitalization. You are prescribed Augmentin and doxycycline to be taken twice daily for 5 more days to complete the antibiotic course. You will need CT chest in 6 to 8 weeks to ensure resolution of the pneumonia. An appointment with your primary care doctor will be made for you so that it can be arranged. Please measure your weight daily at home at the same time. If you notice your weight has gone up by more than 3 pounds and he also noticed swelling in your legs; take extra dose of Lasix in the afternoon until your weight decreases back to baseline and contact your primary care doctor. Pending Studies at Discharge: No Stand-Alone Forms: My [facility] Insurance Noodle, Smoking Cessation Medications and DC Order Prescriptions: New amoxicillin-pot clavulanate 875-125 mg tablet 1 tab PO BID 5 Days Qty: 10 0RF doxycycline hyclate 100 mg capsule 100 mg PO BID 5 Days Qty: 10 0RF Continued furosemide 40 mg tablet 80 mg PO DAILY latanoprost 0.005 % drops 1 drp OPB HS atorvastatin 10 mg tablet 10 mg PO DAILY spironolactone 25 mg tablet 12.5 mg PO DAILY pantoprazole 40 mg tablet,delayed release (DR/EC) 40 mg PO DAILY metoprolol succinate 25 mg tablet extended release 24 hr 25 mg PO DAILY albuterol sulfate 90 mcg/actuation HFA aerosol inhaler 2 puff INHALATION Q6H PRN (Reason: sob) fluticasone propionate 50 mcg/actuation spray,suspension 2 spray INTRANASAL DAILY colestipol 1 gram tablet 1 g PO DAILY Eliquis 5 mg tablet 5 mg PO BID insulin glargine-yfgn 100 unit/mL (3 mL) insulin pen 10 unit SUBCUT DAILY magnesium chloride 64 mg Tablet,Delayed Release (Dr/Ec) 128 mg PO BID Discharge Orders: Discharge Order (Routine); Ordered 07/21/24 Ordered By: Refugio Turcios/Other Patient Handouts: Managing Type 2 Diabetes, Special Foot Care for Diabetes Admission Data Admit Date/Time: 07/19/24 01:17 Attending Provider: Refugio Kat Admit Provider: David Broussard Primary Care Provider: Lokesh Amin Other Providers: David Broussard Other Interventions: Discharge Summary Assessment (RN) Last Done: 07/21/24 09:41
[2024-07-21 11:03] VITALS: BP 110/70; RESP 17; O2SAT 95
[2024-07-21] MEDS ORDERED: [UNRECOGNIZED DRUG - REMARK] PRN (11:29)
[2024-07-21] MEDS: PNEUMOCOCCAL VACCINE (PCV20) 20-VAL CONJ-DIP CRM/PF 0.5 ML SYR IM ONE (12:40)
[2024-07-21 13:01] VITALS: PULSE 74
== END 2024-07-21 14:58 | disposition home or self-care (01) | DRG 193 ==
LOC: ED 18:55 → EDINP 07-19 01:17 → 2N 07-19 01:36